=== PATIENT | male | born 1940 | race Caucasian/White ===

== ENCOUNTER 2017-04-07 12:36 | Inpatient (IN) | payer OTHER ==
[2017-04-07 14:01] LABS: BASOPHIL 0.9 % (0-2.0); EOSINOPHIL 0.4 % (0-4.5); MCH 28.7 pg (25.7-33.7); MCHC 33.5 g/dl (32.0-35.9); MEAN CELL VOLUME 85.6 fl (80-96); MEAN PLT VOLUME 7.7 fl (7.5-11.1); NEUTROPHILS 75.2 % (42.8-82.8); PLATELET COUNT 258 K/MM3 (134-434); RDW 15.6 % (11.9-15.9); WHITE BLOOD COUNT 9.4 K/mm3 (4.0-10.0)
[2017-04-07 14:24] LABS: INR 1.02 (0.82-1.09); PROTHROMBIN TIME (PATIENT) 11.2 SEC (9.98-11.88)
[2017-04-07 14:27] LABS: ACTIVATED PTT 29.4 SECONDS (26.9-34.4)
[2017-04-07 14:28] LABS: ALBUMIN 3.6 g/dl (3.4-5.0); ALK PHOS 47 U/L (45-117); ANION GAP 7 (8-16); BILIRUBIN,TOTAL 0.7 mg/dL (0.2-1.0); CALCIUM 9.9 mg/dL (8.5-10.1); CO2 30 mmol/L (21-32); CPK 94 IU/L (39-308); CREATININE 1.1 mg/dL (0.7-1.3); GLUCOSE,RANDOM 115 mg/dL (74-106); SGOT/AST 19 U/L (15-37); SGPT/ALT 19 U/L (12-78); TOT PROT 7.2 g/dl (6.4-8.2)
[2017-04-07 14:30] LABS: TROPONIN I 0.03 ng/ml (0.00-0.05)
--- NOTE | 2017-04-07 14:36 | PDOC ---
Attending Attestation - Resident Resident Name: Sam Cordova - ED Attending Attestation I have performed the following: I have examined & evaluated the patient, The case was reviewed & discussed with the resident, I agree w/resident's findings & plan, Exceptions are as noted - HPI HPI: 04/07/17 14:33 77 yo male with h/o htn, DM HLD, long time smoker here with exertional dyspnea x 3 weeks. denies chest pain. has noted mild leg swelling. no f/c no cough. follows with dr. cardoso ( pcp) and dr. shook cardiology. - Physicial Exam PE: 04/07/17 14 - Medical Decision Making 04/07/17 14:35 exertional dyspnea, leg edema. differential chf, angina, anemia, renal failure, pneumonia, effusion, ca, copd. plan cxr labs ekg trop aspirin, will edward require admission for acs rule out and further work up. 04/07/17 15:40 focused ed ultrasound TTE, limited, and lung us ltd. indication sob finding: moderately decreased contractility, no pericardial effusion. mild RV hypertrophy, . lungs bilateral B lines noted anterior lung raymond, bilateral pleural effusions at the bases, with some air bronchograms right base. impression : moderately decreased contractility. pulmonary edema with bilateral pleural effusion, atelectasis vs. infiltrate at bases dw dr Cardoso regarding findings. has ct outpt showing all of above us findings , plus suspicious mass right lung and nodules. will obtain ct angio r/o pe, and or CA of lung. d/w cable swager dr raya. thus far consistent with CHF, BNP elevated, pulm edema and decreased contractility. will diurese with iv lasix, admit to telemetry. under dr. tomy ocampo.
--- NOTE | 2017-04-07 14:46 | PDOC ---
History of Present Illness - General Chief Complaint: Shortness of Breath Stated Complaint: SOB (PCP SENT) Time Seen by Provider: 04/07/17 14:12 History Source: Patient Exam Limitations: No Limitations - History of Present Illness Initial Comments: 04/07/17 14:40 Patient is a 77M with history of HTN, HLD, Borderline DM and BPH here today complaining of shortness of breath for 3 weeks. The shortness of breath gets worse with exertion. There is associated diaphoresis and cough. He denies chest pain, nausea, vomiting, fevers and chills. He reports that he his a long time smoker, and quit 4 months ago. He reports that he's never had an OK, stents placed, or told that he's had COPD or asthma. Past History - Past Medical History Allergies/Adverse Reactions: Allergies Allergy/AdvReac Type Severity Reaction Status Date / Time No Known Drug Allergies Allergy Verified 04/07/17 12:53 Home Medications: Ambulatory Orders Amlodipine Besylate [Norvasc -] 10 mg PO DAILY 04/07/17 Aspirin [ASA -] 81 mg PO DAILY 04/07/17 Cholecalciferol (Vitamin D3) [Vitamin D3 -] 1,000 unit PO DAILY 04/07/17 Escitalopram Oxalate [Lexapro -] 10 mg PO DAILY 04/07/17 Fenofibrate 150 mg PO DAILY 04/07/17 Finasteride [Proscar] 5 mg PO DAILY 04/07/17 Hydrochlorothiazide [Hctz -] 25 mg PO DAILY 04/07/17 Losartan Potassium 100 mg PO DAILY 04/07/17 Metformin HCl 500 mg PO DAILY 04/07/17 Multivit-Min/Iron Fum/Folic AC [Iksqh-Bsuffcz-Dklcyneb Tablet] 1 each PO DAILY 04/07/17 Nicotine Polacrilex [Nicotine Lozenge] 4 mg BC PRN 04/07/17 Rosuvastatin Calcium [Crestor] 10 mg PO DAILY 04/07/17 Tamsulosin HCl [Flomax] 0.4 mg PO DAILY 04/07/17 Anemia: No Asthma: No Cancer: No Cardiac Disorders: No CVA: No COPD: No CHF: No Dementia: No Diabetes: Yes (PRE) GI Disorders: No Disorders: No HTN: Yes Hypercholesterolemia: Yes Liver Disease: No Seizures: No Thyroid Disease: No - Surgical History Abdominal Surgery: No Appendectomy: No Cardiac Surgery: No Cholecystectomy: No Lung Surgery: No Neurologic Surgery: No Orthopedic Surgery: Yes (TRIGGER FINGER BILATERAL) - Suicide/Smoking/Psychosocial Hx Smoking History: Former smoker Have you smoked in the past 12 months: No Number of Cigarettes Smoked Daily: 10 If you are a former smoker, when did you quit?: 3 YRS AGO Information on smoking cessation initiated: No 'Breaking Loose' booklet given: 07/30/12 Hx Alcohol Use: No Drug/Substance Use Hx: No Substance Use Type: None Hx Substance Use Treatment: No Review of Systems - Review of Systems Comments:: 04/07/17 14:43 GENERAL/CONSTITUTIONAL: No fever or chills. No weakness. HEAD, EYES, EARS, NOSE AND THROAT: No change in vision. No sore throat. CARDIOVASCULAR: No chest pain. Positive for shortness of breath RESPIRATORY: No cough, wheezing, or hemoptysis. GASTROINTESTINAL: No nausea, vomiting, diarrhea or constipation. GENITOURINARY: No dysuria, frequency, or change in urination. MUSCULOSKELETAL: No joint or muscle swelling or pain. No neck or back pain. SKIN: No rash NEUROLOGIC: No headache, vertigo, loss of consciousness, or change in strength/ sensation. HEMATOLOGIC/LYMPHATIC: No anemia, easy bleeding, or history of blood clots. ALLERGIC/IMMUNOLOGIC: No hives or skin allergy. *Physical Exam - Vital Signs Last Vital Signs Temp Pulse Resp BP Pulse Ox 97.4 F L 81 20 103/68 92 L 04/07/17 12:49 04/07/17 14:05 04/07/17 14:05 04/07/17 14:05 04/07/17 14:05 - Physical Exam Comments: 04/07/17 14:44 GENERAL: Awake, alert, and fully oriented, in no acute distress HEAD: No signs of trauma, normocephalic, atraumatic EYES: PERRLA, EOMI, sclera anicteric, conjunctiva clear ENT: Auricles normal inspection, hearing grossly normal, nares patent, oropharynx clear without exudates. Moist mucosa LUNGS: No distress, speaks full sentences, bilateral rales, no wheezing, sating 93% on 4L O2 HEART: Regular rate and rhythm, normal S1 and S2, no murmurs, rubs or gallops, peripheral pulses normal and equal bilaterally. ABDOMEN: Soft, nontender, normoactive bowel sounds. No guarding, no rebound. No masses EXTREMITIES: Normal inspection, Normal range of motion, trace pitting edema on shins bilaterall. No clubbing or cyanosis. NEUROLOGICAL: Cranial nerves II through XII grossly intact. Normal speech, no focal sensorimotor deficits SKIN: Warm, Dry, normal turgor, no rashes or lesions noted. ED Treatment Course - LABORATORY CBC & Chemistry Diagram: 04/07/17 13:50 04/07/17 13:50 - ADDITIONAL ORDERS Additional order review: Laboratory Results 04/07/17 04/07/17 13:50 13:50 PT with INR 11.20 INR 1.02 PTT (Actin FS) 29.4 Sodium 139 Potassium 4.4 Chloride 102 Carbon Dioxide 30 Anion Gap 7 L BUN 30 H D Creatinine 1.1 D Creat Clearance w eGFR > 60 Random Glucose 115 H Calcium 9.9 Total Bilirubin 0.7 D AST 19 D ALT 19 Alkaline Phosphatase 47 Creatine Kinase 94 Troponin I 0.03 B-Natriuretic Peptide 3857.32 H Total Protein 7.2 Albumin 3.6 04/07/17 13:50 RBC 5.65 H MCV 85.6 MCHC 33.5 RDW 15.6 MPV 7.7 Neutrophils % 75.2 Lymphocytes % 16.2 D Monocytes % 7.3 Eosinophils % 0.4 D Basophils % 0.9 Medical Decision Making - Medical Decision Making 04/07/17 14:45 Patient is a 77M with history of HTN, HLD, borderline DM, and BPH here today with exertional shortness of breath. Hypoxic on room air, vital signs otherwise stable and normal. Will evaluate with labs, cxr, and ecg. Differential diagnosis includes, but is not limited to: CHF exacerbation, COPD exacerbation, anemia, ACS. Will treat with aspirin. 04/07/17 14:47 EKG shows normal sinus rhythm, LBBB, Normal axis, normal rate, sgarbossa negative. No t-wave abnormalities. No significant changes from ECG done on 2012. 04/07/17 14:49 Laboratory Tests 04/07/17 04/07/17 04/07/17 13:50 13:50 13:50 WBC 9.4 Hgb 16.2 Hct 48.4 Plt Count 258 INR 1.02 Troponin I 0.03 B-Natriuretic Peptide 3857.32 H CBC combined with CMP suggests that patient has a low intravascular fluid level. Trop neg, BNP elevated. 04/07/17 14:50 CXR Congestive changes. Bibasilar findings left greater than right. Large heart. 04/07/17 15:[address] Soriano, discussed patient. Will give lasix, appreciate recs. 04/07/17 15:48 Admitted to [facility] to tele inpatient. *DC/Admit/Observation/Transfer Diagnosis at time of Disposition: Congestive heart failure - Discharge Dispostion Condition at time of disposition: Stable Admit: Yes
[2017-04-07] MEDS ORDERED: ASPIRIN 81 MG CHEWABLE TABLETS PO ONE (14:47)
[2017-04-07] MEDS ORDERED: ASPIRIN 325 MG TABLET ONE (15:01)
[2017-04-07] MEDS ORDERED: FUROSEMIDE 40 MG/4 ML INJECTABLE VIAL IVPUSH ONE (15:39)
[2017-04-07] MEDS ORDERED: FUROSEMIDE 40 MG/4 ML INJECTABLE VIAL ONE (15:58)
[2017-04-07] MEDS: HEPARIN NA (PORCINE) 5,000 UNITS/ML 1ML VIAL SQ SCH (22:02)
[2017-04-08 03:27] VITALS: BMI 26.7
[2017-04-08] MEDS: metFORMIN HCL 500 MG TABLET (FP) PO SCH ×2 (06:43→06:45)
[2017-04-08 07:35] LABS: BASOPHIL 0.5 % (0-2.0); EOSINOPHIL 0.3 % (0-4.5); MCH 27.9 pg (25.7-33.7); MCHC 32.5 g/dl (32.0-35.9); MEAN CELL VOLUME 85.7 fl (80-96); NEUTROPHILS 82.4 % (42.8-82.8); PLATELET COUNT 257 K/MM3 (134-434); RDW 15.8 % (11.9-15.9); WHITE BLOOD COUNT 11.6 K/mm3 (4.0-10.0)
[2017-04-08 07:48] LABS: ALBUMIN 3.5 g/dl (3.4-5.0); ANION GAP 7 (8-16); CALCIUM 9.6 mg/dL (8.5-10.1); CO2 29 mmol/L (21-32); GLUCOSE,RANDOM 128 mg/dL (74-106); SGOT/AST 14 U/L (15-37); SGPT/ALT 17 U/L (12-78)
[2017-04-08 07:51] LABS: ALK PHOS 46 U/L (45-117); BILIRUBIN,TOTAL 0.7 mg/dL (0.2-1.0)
--- NOTE | 2017-04-08 08:40 | EKG ---
Test Reason : Blood Pressure : / mmHG Vent. Rate : 083 BPM Atrial Rate : 083 BPM P-R Int : 196 ms QRS Dur : 122 ms QT Int : 416 ms P-R-T Axes : 051 -12 088 degrees QTc Int : 488 ms NORMAL SINUS RHYTHM POSSIBLE LEFT ATRIAL ENLARGEMENT LEFT BUNDLE BRANCH BLOCK ABNORMAL ECG Confirmed by MD SANTANA, LISSETT ([id number]) on 04/08/2017 8:39:48 AM Referred By: Confirmed By:LISSETT DILLON MD
[2017-04-08] MEDS ORDERED: FUROSEMIDE 40 MG/4 ML INJECTABLE VIAL ONE (08:45)
[2017-04-08] MEDS: FUROSEMIDE 40 MG/4 ML INJECTABLE VIAL IVPUSH SCH (09:39)
[2017-04-08] MEDS: HEPARIN NA (PORCINE) 5,000 UNITS/ML 1ML VIAL SQ SCH ×2 (10:12→21:35)
[2017-04-08] MEDS: TAMSULOSIN HCL 0.4 MG CAP.ER.24H (FP) PO SCH (10:12)
[2017-04-08] MEDS: ROSUVASTATIN CA 10 MG TABLET (FP) PO SCH (10:13)
[2017-04-08] MEDS: CHOLECALCIFEROL (VITAMIN D3) 1,000 UNIT TABLET (FP) PO SCH (10:13)
[2017-04-08] MEDS: LOSARTAN POTASSIUM 50 MG TABLET (FP) PO SCH (10:13)
[2017-04-08] MEDS: HYDROCHLOROTHIAZIDE 25 MG TABLET (FP) PO SCH (10:13)
[2017-04-08] MEDS: FENOFIBRIC ACID 135 MG CAP PO SCH (10:13)
[2017-04-08] MEDS: MULTIVITAMINS THER W-MINERALS COMBO TABLET (FP) PO SCH (10:13)
[2017-04-08] MEDS: FINASTERIDE 5 MG TABLET (FP) PO SCH (10:14)
[2017-04-08] MEDS: ASPIRIN 81 MG CHEWABLE TABLETS PO SCH (10:14)
[2017-04-08] MEDS: amLODIPine BESYLATE 10 MG TABLET (FP) PO SCH (10:14)
[2017-04-08] MEDS: ESCITALOPRAM OXALATE 10 MG TABLET (FP) PO SCH (10:14)
--- NOTE | 2017-04-08 12:09 | CON.PULM ---
Consult Consult Specialty:: PULMONARY Referred by:: Dr. Sarmiento Reason for Consultation:: abnormal CT chest - History of Present Illness Chief Complaint: shortness of breath History of Present Illness: 77yo male with h/o HTN, DM, hyperlipidemia, BPH, long time smoker who presents with worsening shortness of breath x 3 weeks. Denies any chest pain, palpitations. Reports a nonproductive cough without wheezing. No fevers, chills or sweats. He does report mild swelling in his legs and has been experiencing orthopnea and paroxysmal nocturnal dyspnea. Denies history of asthma or COPD, started smoking in his late teens, smoked on average 1 PPD, quit 4 months ago. 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 No significant occupational exposures. - History Source History Provided By: Patient, Medical Record Limitations to Obtaining History: No Limitations - Past Medical History Cardio/Vascular: Yes: HTN, Hyperlipdemia Renal/: Yes: BPH Endocrine: Yes: Diabetes Mellitus - Alcohol/Substance Use Hx Alcohol Use: No - Smoking History Smoking history: Former smoker Have you smoked in the past 12 months: Yes Aproximately how many cigarettes per day: 10 If you are a former smoker, when did you quit?: 3 YRS AGO Home Medications - Allergies Allergies/Adverse Reactions: Allergies Allergy/AdvReac Type Severity Reaction Status Date / Time No Known Drug Allergies Allergy Verified 04/07/17 12:53 - Home Medications Home Medications: Ambulatory Orders Amlodipine Besylate [Norvasc -] 10 mg PO DAILY 04/07/17 Aspirin [ASA -] 81 mg PO DAILY 04/07/17 Cholecalciferol (Vitamin D3) [Vitamin D3 -] 1,000 unit PO DAILY 04/07/17 Escitalopram Oxalate [Lexapro -] 10 mg PO DAILY 04/07/17 Fenofibrate 150 mg PO DAILY 04/07/17 Finasteride [Proscar] 5 mg PO DAILY 04/07/17 Hydrochlorothiazide [Hctz -] 25 mg PO DAILY 04/07/17 Losartan Potassium 100 mg PO DAILY 04/07/17 Metformin HCl 500 mg PO DAILY 04/07/17 Multivit-Min/Iron Fum/Folic AC [Veuhk-Jspleqi-Vzdtwyym Tablet] 1 each PO DAILY 04/07/17 Nicotine Polacrilex [Nicotine Lozenge] 4 mg BC PRN 04/07/17 Rosuvastatin Calcium [Crestor] 10 mg PO DAILY 04/07/17 Tamsulosin HCl [Flomax] 0.4 mg PO DAILY 04/07/17 Review of Systems - Review of Systems Constitutional: denies: Chills, Fever Eyes: denies: Recent Change in Vision HENT: denies: Nasal Congestion, Throat Pain Neck: denies: Stiffness, Tenderness Cardiovascular: reports: Edema, Shortness of Breath. denies: Chest Pain, Palpitations Respiratory: reports: Cough, Orthopnea, SOB on Exertion. denies: Hemoptysis, Wheezing Gastrointestinal: denies: Abdominal Pain, Nausea, Vomiting Genitourinary: denies: Dysuria, Hematuria Neurological: denies: Dizziness, Headache Endocrine: denies: Unexplained Weight Loss Physical Exam Vital Sings: Vital Signs Temperature 98.3 F 04/08/17 10:00 Pulse Rate 99 H 04/08/17 10:00 Respiratory Rate 20 04/08/17 10:00 Blood Pressure 118/67 04/08/17 10:00 O2 Sat by Pulse Oximetry (%) 93 L 04/07/17 19:00 Constitutional: Yes: Calm Eyes: Yes: Conjunctiva Clear, EOM Intact HENT: Yes: Atraumatic, Normocephalic Neck: Yes: Supple, Trachea Midline Cardiovascular: Yes: Regular Rate and Rhythm Respiratory: Yes: Rales (basilar) ...Clubbing: No Gastrointestinal: Yes: Normal Bowel Sounds, Soft. No: Tenderness Edema: No Labs: CBC, BMP 04/08/17 06:00 04/08/17 06:00 Imaging - Results Chest X-ray: Report Reviewed, Image Reviewed Cat Scan: Report Reviewed, Image Reviewed (bilateral effusions, nonspecific scattered nodules) Assessment/Plan CHF Exacerbation Pleural Effusions Lung Nodules HTN DM Hyperlipidemia BPH Former Smoker - IV lasix - monitor urine output, creatinine - daily weights, I/Os - echocardiogram - repeat CXR in 2-3 days to assess response to diuresis - O2 to keep SpO2 >90% - inhaled bronchodilators as needed - outpt PFTs due to smoking history - lung nodules nonspecific but will need outpt f/u given smoking history when in euvolemic outpt state - DVT prophylaxis Thank you for this consult Deuce Pang MD
--- NOTE | 2017-04-08 12:52 | HP ---
Admitting History and Physical - Primary Care Physician PCP: Oscar Sarmiento - Admission Chief Complaint: SOB. Cough History of Present Illness: Pt with significant Hx/o HTN, Hypercholesterolemia, DM developed progressive SOB and cough over the last 3 weeks to the point that couldn't sleep. He came to ER and was found to have Acute CHF exacerbation. - Past Medical History Cardiovascular: Yes: HTN, Hyperlipdemia Renal/: Yes: BPH Endocrine: Yes: Diabetes Mellitus - Smoking History Smoking history: Former smoker Have you smoked in the past 12 months: Yes Aproximately how many cigarettes per day: 15 If you are a former smoker, when did you quit?: 3 YRS AGO - Alcohol/Substance Use Hx Alcohol Use: No - Social History Usual Living Arrangement: Yes: With Spouse Home Medications - Allergies Allergies/Adverse Reactions: Allergies Allergy/AdvReac Type Severity Reaction Status Date / Time No Known Drug Allergies Allergy Verified 04/07/17 12:53 - Home Medications Home Medications: Ambulatory Orders Amlodipine Besylate [Norvasc -] 10 mg PO DAILY 04/07/17 Aspirin [ASA -] 81 mg PO DAILY 04/07/17 Cholecalciferol (Vitamin D3) [Vitamin D3 -] 1,000 unit PO DAILY 04/07/17 Escitalopram Oxalate [Lexapro -] 10 mg PO DAILY 04/07/17 Fenofibrate 150 mg PO DAILY 04/07/17 Finasteride [Proscar] 5 mg PO DAILY 04/07/17 Hydrochlorothiazide [Hctz -] 25 mg PO DAILY 04/07/17 Losartan Potassium 100 mg PO DAILY 04/07/17 Metformin HCl 500 mg PO DAILY 04/07/17 Multivit-Min/Iron Fum/Folic AC [Vtdcp-Gdllpio-Bmfrpacu Tablet] 1 each PO DAILY 04/07/17 Nicotine Polacrilex [Nicotine Lozenge] 4 mg BC PRN 04/07/17 Rosuvastatin Calcium [Crestor] 10 mg PO DAILY 04/07/17 Tamsulosin HCl [Flomax] 0.4 mg PO DAILY 04/07/17 Review of Systems - Review of Systems Constitutional: denies: Chills, Fever Eyes: denies: Blurred Vision, Double Vision HENT: denies: Ear Discharge, Ear Pain, Nasal Congestion, Throat Pain Neck: denies: Pain on Movement, Stiffness, Tenderness Cardiovascular: denies: Chest Pain, Edema, Palpitations Respiratory: reports: Cough (dry, for long time), PND, SOB, SOB on Exertion ( over the couple of weeks). denies: Wheezing Gastrointestinal: denies: Abdominal Pain, Diarrhea, Nausea, Vomiting Genitourinary: denies: Burning, Dysuria Musculoskeletal: denies: Back Pain, Extremity Pain, Joint Pain, Joint Swelling Integumentary: denies: Bruising, Erythema Neurological: denies: Change in LOC, Change in Speech, Confusion, Dizziness, Incoordination Endocrine: denies: Excessive Sweating, Intolerance to Cold, Unexplained Weight Gain Hematology/Lymphatic: denies: Easily Bruised, Excessive Bleeding Psychiatric: denies: Anxiety, Depression Physical Examination Vital Signs: Vital Signs Temperature 98.3 F 04/08/17 10:00 Pulse Rate 99 H 04/08/17 10:00 Respiratory Rate 20 04/08/17 10:00 Blood Pressure 118/67 04/08/17 10:00 O2 Sat by Pulse Oximetry (%) 85 L 04/08/17 09:00 Constitutional: Yes: No Distress, Calm Eyes: Yes: Conjunctiva Clear, EOM Intact HENT: Yes: Normocephalic, Hoarseness. No: Epistaxis, Nasal Congestion Neck: Yes: Trachea Midline. No: Lymphadenopathy Cardiovascular: Yes: Regular Rate and Rhythm, S1, S2 Respiratory: Yes: Regular, Other (bilat crackles) Gastrointestinal: Yes: Normal Bowel Sounds, Soft. No: Palpable Mass, Tenderness ...Rectal Exam: Yes: Deferred Renal/: No: CVA Tenderness - Left, CVA Tenderness - Right Musculoskeletal: No: Back Pain, Joint Swelling Extremities: No: Cold, Cyanosis Edema: No Integumentary: No: Bruising, Erythema, Rash Neurological: Yes: Alert, Oriented, Other (motor and sensory is symmetric bilaterally) Psychiatric: Yes: Alert, Oriented Labs: CBC, BMP 04/08/17 06:00 04/08/17 06:00 Imaging - Results Chest X-ray: Report Reviewed Cat Scan: Report Reviewed Problem List - Problems (1) CHF (congestive heart failure) Code(s): I50.9 - HEART FAILURE, UNSPECIFIED (2) Pleural effusion Code(s): J90 - PLEURAL EFFUSION, NOT ELSEWHERE CLASSIFIED (3) Pulmonary nodules Code(s): R91.8 - OTHER NONSPECIFIC ABNORMAL FINDING OF LUNG FIELD (4) Left adrenal mass Code(s): E27.9 - DISORDER OF ADRENAL GLAND, UNSPECIFIED (5) Hypertension Code(s): I10 - ESSENTIAL (PRIMARY) HYPERTENSION (6) Diabetes mellitus Code(s): E11.9 - TYPE 2 DIABETES MELLITUS WITHOUT COMPLICATIONS (7) Hypercholesteremia Code(s): E78.00 - PURE HYPERCHOLESTEROLEMIA, UNSPECIFIED Assessment/Plan Admit to Telemetry Cardio consult Pulmonary consult; case was d/w Dr. Bird Dickson IV; to monitor renal function. AM labs
--- NOTE | 2017-04-08 20:09 | CON.CARD ---
Cardiology Consult (text) - Consultation Consultation Note: cc: sob, le edema hpi: 77 m hx htn, hld, dm here with sob, le edema for 3 weeks. No cp, palps, dizzy, loc,pnd, +orthopnea. No known hrt dz. Saw dr shook for initial cardio consultation recently. Found to have chf in er so given iv lasix, feeling a little better today. pmh: per hpi psh: nc social: ex tob fam: no premature cad, scd ros: per hpi; no nvd, fever, cough, nasal congestion, gib, hematuria, dysuria meds: Home Medications Medication Instructions Recorded Amlodipine Besylate [Norvasc -] 10 mg PO DAILY 04/07/17 Aspirin [ASA -] 81 mg PO DAILY 04/07/17 Cholecalciferol (Vitamin D3) 1,000 unit PO DAILY 04/07/17 [Vitamin D3 -] Escitalopram Oxalate [Lexapro -] 10 mg PO DAILY 04/07/17 Fenofibrate 150 mg PO DAILY 04/07/17 Finasteride [Proscar] 5 mg PO DAILY 04/07/17 Hydrochlorothiazide [Hctz -] 25 mg PO DAILY 04/07/17 Losartan Potassium 100 mg PO DAILY 04/07/17 Metformin HCl 500 mg PO DAILY 04/07/17 Multivit-Min/Iron Fum/Folic AC 1 each PO DAILY 04/07/17 [Bwisr-Iuetdaf-Mrhtrweb Tablet] Nicotine Polacrilex [Nicotine 4 mg BC PRN 04/07/17 Lozenge] Rosuvastatin Calcium [Crestor] 10 mg PO DAILY 04/07/17 Tamsulosin HCl [Flomax] 0.4 mg PO DAILY 04/07/17 pe: Vital Signs Period Temp Pulse Resp BP Sys/Eisenberg Pulse Ox Last 24 Hr 97.5 F-98.3 F 80-99 20-20 100-123/60-79 85 nad +jvd rrr s1s2 no mrg bibasilar crackles, nl eff aaox3 trace le edema bl no c/c abd nt nd posbs no jaundice diaphoresis +dp pt no carotid bruits Laboratory Last Values WBC 11.6 K/mm3 (4.0-10.0) H 04/08/17 06:00 RBC 5.75 M/mm3 (4.00-5.60) H 04/08/17 06:00 Hgb 16.0 GM/dL (11.7-16.9) 04/08/17 06:00 Hct 49.3 % (35.4-49) H 04/08/17 06:00 MCV 85.7 fl (80-96) 04/08/17 06:00 MCH 27.9 pg (25.7-33.7) 04/08/17 06:00 MCHC 32.5 g/dl (32.0-35.9) 04/08/17 06:00 RDW 15.8 % (11.9-15.9) 04/08/17 06:00 Plt Count 257 K/MM3 (134-434) 04/08/17 06:00 MPV 8.0 fl (7.5-11.1) 04/08/17 06:00 Neutrophils % 82.4 % (42.8-82.8) 04/08/17 06:00 Lymphocytes % 11.2 % (8-40) D 04/08/17 06:00 Monocytes % 5.6 % (3.8-10.2) 04/08/17 06:00 Eosinophils % 0.3 % (0-4.5) 04/08/17 06:00 Basophils % 0.5 % (0-2.0) 04/08/17 06:00 PT with INR 11.20 SEC (9.98-11.88) 04/07/17 13:50 INR 1.02 (0.82-1.09) 04/07/17 13:50 PTT (Actin FS) 29.4 SECONDS (26.9-34.4) 04/07/17 13:50 Sodium 138 mmol/L (136-145) 04/08/17 06:00 Potassium 3.8 mmol/L (3.5-5.1) 04/08/17 06:00 Chloride 102 mmol/L (98-107) 04/08/17 06:00 Carbon Dioxide 29 mmol/L (21-32) 04/08/17 06:00 Anion Gap 7 (8-16) L 04/08/17 06:00 BUN 30 mg/dL (7-18) H 04/08/17 06:00 Creatinine 1.0 mg/dL (0.7-1.3) 04/08/17 06:00 Creat Clearance w eGFR > 60 (>60) 04/08/17 06:00 POC Glucometer 131 UNITS (()) 04/08/17 06:13 Random Glucose 128 mg/dL (74-106) H 04/08/17 06:00 Calcium 9.6 mg/dL (8.5-10.1) 04/08/17 06:00 Total Bilirubin 0.7 mg/dL (0.2-1.0) 04/08/17 06:00 AST 14 U/L (15-37) L D 04/08/17 06:00 ALT 17 U/L (12-78) 04/08/17 06:00 Alkaline Phosphatase 46 U/L (45-117) 04/08/17 06:00 Creatine Kinase 94 IU/L (39-308) 04/07/17 13:50 Troponin I 0.03 ng/ml (0.00-0.05) 04/07/17 13:50 B-Natriuretic Peptide 3857.32 pg/ml (5-450) H 04/07/17 13:50 Total Protein 7.0 g/dl (6.4-8.2) 04/08/17 06:00 Albumin 3.5 g/dl (3.4-5.0) 04/08/17 06:00 cxr: chf cta chest: no pe, bl effs ecg: sr, lbbb (old) tele: sr a/p: 77 m hx htn, hld, dm here with sob, le edema for 3 weeks. sob, acute chf: -pt with pulm congestion, chf, no known hx of such -no signs acs -cont with lasix 40 iv qd, daily wts, chem7 -check echo -cont tele htn: -cont home meds hld: -cont home statin abnl ecg: -pt with old lbbb -check echo -will need ischemic workup at some point
[2017-04-09] MEDS: metFORMIN HCL 500 MG TABLET (FP) PO SCH (06:11)
[2017-04-09 07:40] LABS: MCHC 32.5 g/dl (32.0-35.9); MEAN CELL VOLUME 86.2 fl (80-96); MEAN PLT VOLUME 8.4 fl (7.5-11.1); PLATELET COUNT 242 K/MM3 (134-434); RDW 15.4 % (11.9-15.9); WHITE BLOOD COUNT 10.1 K/mm3 (4.0-10.0)
[2017-04-09 08:30] LABS: ALBUMIN 3.3 g/dl (3.4-5.0); ALK PHOS 40 U/L (45-117); ANION GAP 12 (8-16); BILIRUBIN,TOTAL 0.8 mg/dL (0.2-1.0); CALCIUM 9.4 mg/dL (8.5-10.1); CO2 29 mmol/L (21-32); CREATININE 1.1 mg/dL (0.7-1.3); FREE T4 1.34 ng/dl (0.76-1.16); GLUCOSE,RANDOM 116 mg/dL (74-106); SGOT/AST 15 U/L (15-37); SGPT/ALT 16 U/L (12-78); THYROID STIMULATING HORMONE 0.77 uIU/ml (0.358-3.74); TOT PROT 6.4 g/dl (6.4-8.2)
[2017-04-09] MEDS: HEPARIN NA (PORCINE) 5,000 UNITS/ML 1ML VIAL SQ SCH ×2 (10:31→21:38)
[2017-04-09] MEDS: ASPIRIN 81 MG CHEWABLE TABLETS PO SCH (10:32)
[2017-04-09] MEDS: FUROSEMIDE 40 MG/4 ML INJECTABLE VIAL IVPUSH SCH (10:32)
[2017-04-09] MEDS: HYDROCHLOROTHIAZIDE 25 MG TABLET (FP) PO SCH (10:32)
[2017-04-09] MEDS: FENOFIBRIC ACID 135 MG CAP PO SCH (10:32)
[2017-04-09] MEDS: CHOLECALCIFEROL (VITAMIN D3) 1,000 UNIT TABLET (FP) PO SCH (10:32)
[2017-04-09] MEDS: FINASTERIDE 5 MG TABLET (FP) PO SCH (10:32)
[2017-04-09] MEDS: ESCITALOPRAM OXALATE 10 MG TABLET (FP) PO SCH (10:32)
[2017-04-09] MEDS: amLODIPine BESYLATE 10 MG TABLET (FP) PO SCH (10:32)
[2017-04-09] MEDS: ROSUVASTATIN CA 10 MG TABLET (FP) PO SCH (10:32)
[2017-04-09] MEDS: TAMSULOSIN HCL 0.4 MG CAP.ER.24H (FP) PO SCH (10:32)
[2017-04-09] MEDS: MULTIVITAMINS THER W-MINERALS COMBO TABLET (FP) PO SCH (10:32)
[2017-04-09] MEDS: LOSARTAN POTASSIUM 50 MG TABLET (FP) PO SCH (10:36)
--- NOTE | 2017-04-09 10:45 | PN ---
Progress Note, Physician History of Present Illness: PULMONARY ALERT,OOB-CHAIR LESS DYSPNEIC ON - Current Medication List Current Medications: Active Medications Amlodipine Besylate (Norvasc -) 10 mg PO DAILY COUNTS INCLUDE 234 BEDS AT THE [facility] Last Admin: 04/09/17 10:32 Dose: 10 mg Aspirin (Asa -) 81 mg PO DAILY COUNTS INCLUDE 234 BEDS AT THE [facility] Last Admin: 04/09/17 10:32 Dose: 81 mg Cholecalciferol (Vitamin D3 -) 1,000 unit PO DAILY COUNTS INCLUDE 234 BEDS AT THE [facility] Last Admin: 04/09/17 10:32 Dose: 1,000 unit Escitalopram Oxalate (Lexapro -) 10 mg PO DAILY COUNTS INCLUDE 234 BEDS AT THE [facility] Last Admin: 04/09/17 10:32 Dose: 10 mg Fenofibric Acid (Trilipix -) 135 mg PO DAILY COUNTS INCLUDE 234 BEDS AT THE [facility] Last Admin: 04/09/17 10:32 Dose: 135 mg Finasteride (Proscar -) 5 mg PO DAILY COUNTS INCLUDE 234 BEDS AT THE [facility] Last Admin: 04/09/17 10:32 Dose: 5 mg Furosemide (Lasix Injection -) 40 mg IVPUSH DAILY COUNTS INCLUDE 234 BEDS AT THE [facility] Last Admin: 04/09/17 10:32 Dose: 40 mg Heparin Sodium (Porcine) (Heparin -) 5,000 unit SQ BID COUNTS INCLUDE 234 BEDS AT THE [facility] Last Admin: 04/09/17 10:31 Dose: 5,000 unit Hydrochlorothiazide (Hctz -) 25 mg PO DAILY COUNTS INCLUDE 234 BEDS AT THE [facility] Last Admin: 04/09/17 10:32 Dose: 25 mg Losartan Potassium (Cozaar -) 100 mg PO DAILY COUNTS INCLUDE 234 BEDS AT THE [facility] Last Admin: 04/09/17 10:36 Dose: 100 mg Metformin HCl (Glucophage -) 500 mg PO DAILY@0700 COUNTS INCLUDE 234 BEDS AT THE [facility] Last Admin: 04/09/17 06:11 Dose: Not Given Multivitamins/Minerals (Theragran-M) 1 each PO DAILY COUNTS INCLUDE 234 BEDS AT THE [facility] Last Admin: 04/09/17 10:32 Dose: 1 each Rosuvastatin Calcium (Crestor -) 10 mg PO DAILY COUNTS INCLUDE 234 BEDS AT THE [facility] Last Admin: 04/09/17 10:32 Dose: 10 mg Tamsulosin HCl (Flomax -) 0.4 mg PO DAILY COUNTS INCLUDE 234 BEDS AT THE [facility] Last Admin: 04/09/17 10:32 Dose: 0.4 mg - Objective Vital Signs: Vital Signs Temperature 97.6 F 04/09/17 06:00 Pulse Rate 88 04/09/17 06:00 Respiratory Rate 20 04/09/17 06:00 Blood Pressure 108/65 04/09/17 06:00 O2 Sat by Pulse Oximetry (%) 93 L 04/08/17 21:00 Constitutional: Yes: Well Nourished, Calm Eyes: Yes: WNL HENT: Yes: WNL Neck: Yes: WNL Cardiovascular: Yes: Regular Rate and Rhythm, S1, S2 Respiratory: Yes: Rales (BILATERAL RALES 2/3 UP) Gastrointestinal: Yes: Normal Bowel Sounds, Soft Extremities: Yes: WNL Edema: No Labs: CBC, BMP 04/09/17 05:30 04/09/17 05:30 INR, PTT INR 1.02 (0.82-1.09) 04/07/17 13:50 Assessment/Plan Assessment/Plan CHF Exacerbation Pleural Effusions Lung Nodules HTN DM Hyperlipidemia BPH Former Smoker - IV lasix - monitor urine output, creatinine - daily weights, I/Os - repeat CXR in 2-3 days to assess response to diuresis - O2 to keep SpO2 >90% - inhaled bronchodilators as needed - outpt PFTs - lung nodules nonspecific but will need outpt f/u given smoking history when in euvolemic outpt state - DVT prophylaxis DR CÁRDENAS
--- NOTE | 2017-04-09 10:47 | PN ---
Progress Note, Physician Chief Complaint: sob History of Present Illness: rojo and orthopnea much better than at home. no cp, leg swelling - Current Medication List Current Medications: Active Medications Amlodipine Besylate (Norvasc -) 10 mg PO DAILY [facility] Last Admin: 04/09/17 10:32 Dose: 10 mg Aspirin (Asa -) 81 mg PO DAILY [facility] Last Admin: 04/09/17 10:32 Dose: 81 mg Cholecalciferol (Vitamin D3 -) 1,000 unit PO DAILY [facility] Last Admin: 04/09/17 10:32 Dose: 1,000 unit Escitalopram Oxalate (Lexapro -) 10 mg PO DAILY [facility] Last Admin: 04/09/17 10:32 Dose: 10 mg Fenofibric Acid (Trilipix -) 135 mg PO DAILY [facility] Last Admin: 04/09/17 10:32 Dose: 135 mg Finasteride (Proscar -) 5 mg PO DAILY [facility] Last Admin: 04/09/17 10:32 Dose: 5 mg Furosemide (Lasix Injection -) 40 mg IVPUSH DAILY [facility] Last Admin: 04/09/17 10:32 Dose: 40 mg Heparin Sodium (Porcine) (Heparin -) 5,000 unit SQ BID [facility] Last Admin: 04/09/17 10:31 Dose: 5,000 unit Hydrochlorothiazide (Hctz -) 25 mg PO DAILY [facility] Last Admin: 04/09/17 10:32 Dose: 25 mg Losartan Potassium (Cozaar -) 100 mg PO DAILY [facility] Last Admin: 04/09/17 10:36 Dose: 100 mg Metformin HCl (Glucophage -) 500 mg PO DAILY@0700 [facility] Last Admin: 04/09/17 06:11 Dose: Not Given Multivitamins/Minerals (Theragran-M) 1 each PO DAILY [facility] Last Admin: 04/09/17 10:32 Dose: 1 each Rosuvastatin Calcium (Crestor -) 10 mg PO DAILY [facility] Last Admin: 04/09/17 10:32 Dose: 10 mg Tamsulosin HCl (Flomax -) 0.4 mg PO DAILY [facility] Last Admin: 04/09/17 10:32 Dose: 0.4 mg - Objective Vital Signs: Vital Signs Temperature 97.6 F 04/09/17 06:00 Pulse Rate 88 04/09/17 06:00 Respiratory Rate 20 04/09/17 06:00 Blood Pressure 108/65 04/09/17 06:00 O2 Sat by Pulse Oximetry (%) 93 L 04/08/17 21:00 Constitutional: Yes: Well Nourished, No Distress, Calm Cardiovascular: Yes: Regular Rate and Rhythm, S1, S2. No: JVD, Gallop, Murmur Respiratory: Yes: Regular, CTA Bilaterally. No: Accessory Muscle Use, Rales, Wheezes Extremities: No: Cold Edema: No Neurological: Yes: Alert, Oriented Psychiatric: No: Agitated Labs: CBC, BMP 04/09/17 05:30 04/09/17 05:30 INR, PTT INR 1.02 (0.82-1.09) 04/07/17 13:50 - ....Imaging EKG: Other (tele: NSR. episodes of sinus arrhythmia and junctional escape beats overnight hours. 11 beat run NSVT (2:53am)) Assessment/Plan cxr: chf cta chest: no pe, bl effs ecg: sr, lbbb (old) a/p: 77 m hx htn, hld, dm here with sob, le edema for 3 weeks. acute diast CHF -pt with pulm congestion, chf, no known hx of such -sx's of ROJO and orthopnea for a while, saw dr shook but outpt w/u not yet completed. -was 177 at that time (04/02), 176 here initially, bnp 3K. -no signs acs -wt responding to lasix 40 iv qd, sx's improving--cont same today -check echo -needs ischemia eval routinely, can be done as outpatient -suspect will be ready for d/c on po lasix in am VTach: -NSVT on tele, during sleep (2:53am) -? related to TOI--habitus not high risk, consider outpt sleep study -K good, check Mag (ordered) -f/u echo re: LVEF--if EF preserved, then no further workup or mgmt changes indicated for this, with outpt stress test planned as above htn: -bp controlled -cont home meds hld: -cont home statin abnl ecg: -pt with old lbbb -check echo -will need ischemic workup at some point ex-cigs, ? copd: -needs outpt PFTs
[2017-04-09 12:28] LABS: MAGNESIUM 2.1 mg/dL (1.8-2.4)
--- NOTE | 2017-04-09 23:39 | PN ---
Progress Note, Physician History of Present Illness: Pt w/o SOB, CP, palp, abd apin. AM episode of hypoxia was noticed - Current Medication List Current Medications: Active Medications Aspirin (Asa -) 81 mg PO DAILY [facility] Last Admin: 04/09/17 10:32 Dose: 81 mg Cholecalciferol (Vitamin D3 -) 1,000 unit PO DAILY [facility] Last Admin: 04/09/17 10:32 Dose: 1,000 unit Escitalopram Oxalate (Lexapro -) 10 mg PO DAILY [facility] Last Admin: 04/09/17 10:32 Dose: 10 mg Fenofibric Acid (Trilipix -) 135 mg PO DAILY [facility] Last Admin: 04/09/17 10:32 Dose: 135 mg Finasteride (Proscar -) 5 mg PO DAILY [facility] Last Admin: 04/09/17 10:32 Dose: 5 mg Furosemide (Lasix Injection -) 40 mg IVPUSH DAILY [facility] Last Admin: 04/09/17 10:32 Dose: 40 mg Heparin Sodium (Porcine) (Heparin -) 5,000 unit SQ BID [facility] Last Admin: 04/09/17 21:38 Dose: 5,000 unit Losartan Potassium (Cozaar -) 100 mg PO DAILY [facility] Last Admin: 04/09/17 10:36 Dose: 100 mg Metformin HCl (Glucophage -) 500 mg PO DAILY@0700 [facility] Last Admin: 04/09/17 06:11 Dose: Not Given Metoprolol Succinate (Toprol Xl -) 25 mg PO DAILY [facility] Multivitamins/Minerals (Theragran-M) 1 each PO DAILY [facility] Last Admin: 04/09/17 10:32 Dose: 1 each Rosuvastatin Calcium (Crestor -) 10 mg PO DAILY [facility] Last Admin: 04/09/17 10:32 Dose: 10 mg Tamsulosin HCl (Flomax -) 0.4 mg PO DAILY [facility] Last Admin: 04/09/17 10:32 Dose: 0.4 mg - Objective Vital Signs: Vital Signs Temperature 98 F 04/09/17 21:38 Pulse Rate 70 04/09/17 21:38 Respiratory Rate 20 04/09/17 21:38 Blood Pressure 91/54 04/09/17 21:38 O2 Sat by Pulse Oximetry (%) 95 04/09/17 21:00 Constitutional: Yes: No Distress, Calm Cardiovascular: Yes: Regular Rate and Rhythm, S1, S2 Respiratory: Yes: Regular, Other (crackles 1/3 up- improved from yesterday.) Gastrointestinal: Yes: Normal Bowel Sounds, Soft. No: Tenderness Edema: No Labs: CBC, BMP 04/09/17 05:30 04/09/17 05:30 INR, PTT INR 1.02 (0.82-1.09) 04/07/17 13:50 Problem List - Problems (1) CHF (congestive heart failure) Code(s): I50.9 - HEART FAILURE, UNSPECIFIED (2) Pleural effusion Code(s): J90 - PLEURAL EFFUSION, NOT ELSEWHERE CLASSIFIED (3) Pulmonary nodules Code(s): R91.8 - OTHER NONSPECIFIC ABNORMAL FINDING OF LUNG FIELD (4) Left adrenal mass Code(s): E27.9 - DISORDER OF ADRENAL GLAND, UNSPECIFIED (5) Hypertension Code(s): I10 - ESSENTIAL (PRIMARY) HYPERTENSION (6) Diabetes mellitus Code(s): E11.9 - TYPE 2 DIABETES MELLITUS WITHOUT COMPLICATIONS (7) Hypercholesteremia Code(s): E78.00 - PURE HYPERCHOLESTEROLEMIA, UNSPECIFIED Assessment/Plan Admit to Telemetry Cardio consult appreciated Pulmonary consult appreciated. Lasix IV; to monitor renal function. Thyroid US in AM AM labs
[2017-04-10] MEDS: metFORMIN HCL 500 MG TABLET (FP) PO SCH (06:18)
[2017-04-10 08:39] LABS: ANION GAP 8 (8-16); CALCIUM 9.4 mg/dL (8.5-10.1); CO2 32 mmol/L (21-32); GLUCOSE,RANDOM 123 mg/dL (74-106)
--- NOTE | 2017-04-10 08:50 | PN ---
Progress Note (short form) - Note Progress Note: s: rojo and orthopnea improving, still on o2 via nc no cp, leg swelling, dizzy, palps - Current Medication List Current Medications Generic Name Dose Route Start Last Admin Trade Name Susana PRN Reason Stop Dose Admin Aspirin 81 mg 04/08/17 10:00 04/09/17 10:32 Asa - PO 81 mg DAILY [facility] Administration Cholecalciferol 1,000 unit 04/08/17 10:00 04/09/17 10:32 Vitamin D3 - PO 1,000 unit DAILY [facility] Administration Escitalopram Oxalate 10 mg 04/08/17 10:00 04/09/17 10:32 Lexapro - PO 10 mg DAILY [facility] Administration Fenofibric Acid 135 mg 04/08/17 10:00 04/09/17 10:32 Trilipix - PO 135 mg DAILY [facility] Administration Finasteride 5 mg 04/08/17 10:00 04/09/17 10:32 Proscar - PO 5 mg DAILY [facility] Administration Furosemide 40 mg 04/08/17 10:00 04/09/17 10:32 Lasix Injection - IVPUSH 40 mg DAILY [facility] Administration Heparin Sodium (Porcine) 5,000 unit 04/07/17 22:00 04/09/17 21:38 Heparin - SQ 5,000 unit BID [facility] Administration Losartan Potassium 100 mg 04/08/17 10:00 04/09/17 10:36 Cozaar - PO 100 mg DAILY [facility] Administration Metformin HCl 500 mg 04/08/17 07:00 04/10/17 06:18 Glucophage - PO Not Given DAILY@0700 [facility] Metoprolol Succinate 12.5 mg 04/10/17 10:00 Toprol Xl - PO DAILY [facility] Multivitamins/Minerals 1 each 04/08/17 10:00 04/09/17 10:32 Theragran-M PO 1 each DAILY [facility] Administration Rosuvastatin Calcium 10 mg 04/08/17 10:00 04/09/17 10:32 Crestor - PO 10 mg DAILY [facility] Administration Tamsulosin HCl 0.4 mg 04/08/17 10:00 04/09/17 10:32 Flomax - PO 0.4 mg DAILY [facility] Administration - Objective Vital Signs: Vital Signs Period Temp Pulse Resp BP Sys/Eisenberg Pulse Ox Last 24 Hr 97.7 F-98.2 F 70-83 18-20 91-126/54-64 94-95 Constitutional: Yes: Well Nourished, No Distress, Calm Cardiovascular: Yes: Regular Rate and Rhythm, S1, S2. No: JVD, Gallop, Murmur Respiratory: Yes: Regular, CTA Bilaterally. No: Accessory Muscle Use, Rales, Wheezes Extremities: No: Cold Edema: No Neurological: Yes: Alert, Oriented Psychiatric: No: Agitated no jaundice diaphoresis Labs: CBC, BMP 04/09/17 05:30 tele: sr, occ pvcs cxr: chf cta chest: no pe, bl effs ecg: sr, lbbb (old) echo 03/2017: tds; sev dec lvef, mild dec rv fcn, nl rv size, mild lae, mod mr a/p: 77 m hx htn, hld, dm here with sob, le edema for 3 weeks. acute systolic CHF -pt with pulm congestion, chf, no known hx of such -sx's of ROJO and orthopnea for a while, saw dr shook but outpt w/u not yet completed. -was 177 at that time (04/02), 176 here initially, bnp 3K. -no signs acs -wt responding to lasix 40 iv qd, sx's improving--cont same today. still requiring o2 via nc. -echo here showing severely decreased lvef -cont arb. will dc hctz/norvasc to allow for bp room for toprol for chf regimen as well as lasix -will need ischemic eval for his newly diagnosed systolic chf, possibly nuclear stress test to start based on clinical course VTach: -brief NSVT on tele, during sleep -echo shows sev dec lvef, so will start toprol for chf regimen -ischemic eval htn: -bp controlled/low, meds as above hld: -cont home statin abnl ecg: -pt with old lbbb -echo shows sev dec lvef -will need ischemic workup at some point ex-cigs, ? copd: -needs outpt PFTs
[2017-04-10] MEDS ORDERED: METOPROLOL SUCCINATE 25 MG TAB.SR.24H (FP) PO SCH (10:00)
[2017-04-10] MEDS: TAMSULOSIN HCL 0.4 MG CAP.ER.24H (FP) PO SCH (10:09)
[2017-04-10] MEDS: LOSARTAN POTASSIUM 50 MG TABLET (FP) PO SCH (10:10)
[2017-04-10] MEDS: FINASTERIDE 5 MG TABLET (FP) PO SCH (10:10)
[2017-04-10] MEDS: ESCITALOPRAM OXALATE 10 MG TABLET (FP) PO SCH (10:10)
[2017-04-10] MEDS: MULTIVITAMINS THER W-MINERALS COMBO TABLET (FP) PO SCH (10:10)
[2017-04-10] MEDS: METOPROLOL SUCCINATE 25 MG TAB.SR.24H (FP) PO SCH (10:10)
[2017-04-10] MEDS: ROSUVASTATIN CA 10 MG TABLET (FP) PO SCH (10:10)
[2017-04-10] MEDS: CHOLECALCIFEROL (VITAMIN D3) 1,000 UNIT TABLET (FP) PO SCH (10:10)
[2017-04-10] MEDS: FENOFIBRIC ACID 135 MG CAP PO SCH (10:10)
[2017-04-10] MEDS: ASPIRIN 81 MG CHEWABLE TABLETS PO SCH (10:10)
[2017-04-10] MEDS: HEPARIN NA (PORCINE) 5,000 UNITS/ML 1ML VIAL SQ SCH ×2 (10:13→23:26)
[2017-04-10] MEDS: FUROSEMIDE 40 MG/4 ML INJECTABLE VIAL IVPUSH SCH (10:13)
--- NOTE | 2017-04-10 10:22 | PN ---
Progress Note, Physician History of Present Illness: PULMONARY ALERT,FEELING, BETTER,LESS DYSPNEIC,-CP - Current Medication List Current Medications: Active Medications Aspirin (Asa -) 81 mg PO DAILY [facility] Last Admin: 04/10/17 10:10 Dose: 81 mg Cholecalciferol (Vitamin D3 -) 1,000 unit PO DAILY [facility] Last Admin: 04/10/17 10:10 Dose: 1,000 unit Escitalopram Oxalate (Lexapro -) 10 mg PO DAILY [facility] Last Admin: 04/10/17 10:10 Dose: Not Given Fenofibric Acid (Trilipix -) 135 mg PO DAILY [facility] Last Admin: 04/10/17 10:10 Dose: 135 mg Finasteride (Proscar -) 5 mg PO DAILY [facility] Last Admin: 04/10/17 10:10 Dose: 5 mg Furosemide (Lasix Injection -) 40 mg IVPUSH DAILY [facility] Last Admin: 04/10/17 10:13 Dose: 40 mg Heparin Sodium (Porcine) (Heparin -) 5,000 unit SQ BID [facility] Last Admin: 04/10/17 10:13 Dose: 5,000 unit Losartan Potassium (Cozaar -) 100 mg PO DAILY [facility] Last Admin: 04/10/17 10:10 Dose: 100 mg Metformin HCl (Glucophage -) 500 mg PO DAILY@0700 [facility] Last Admin: 04/10/17 06:18 Dose: Not Given Metoprolol Succinate (Toprol Xl -) 12.5 mg PO DAILY [facility] Multivitamins/Minerals (Theragran-M) 1 each PO DAILY [facility] Last Admin: 04/10/17 10:10 Dose: 1 each Rosuvastatin Calcium (Crestor -) 10 mg PO DAILY [facility] Last Admin: 04/10/17 10:10 Dose: 10 mg Tamsulosin HCl (Flomax -) 0.4 mg PO DAILY [facility] Last Admin: 04/10/17 10:09 Dose: 0.4 mg - Objective Vital Signs: Vital Signs Temperature 98 F 04/10/17 05:41 Pulse Rate 77 04/10/17 05:41 Respiratory Rate 20 04/10/17 05:41 Blood Pressure 99/58 04/10/17 05:41 O2 Sat by Pulse Oximetry (%) 95 04/09/17 21:00 Constitutional: Yes: Well Nourished, Calm Eyes: Yes: WNL HENT: Yes: WNL Neck: Yes: WNL Cardiovascular: Yes: Regular Rate and Rhythm, S1, S2 Respiratory: Yes: Rales (BIBASILAR RALES) Gastrointestinal: Yes: Normal Bowel Sounds, Soft Extremities: Yes: WNL Edema: No Labs: CBC, BMP 04/09/17 05:30 04/10/17 05:28 INR, PTT INR 1.02 (0.82-1.09) 04/07/17 13:50 Assessment/Plan Assessment/Plan CHF Exacerbation improving Pleural Effusions Lung Nodules HTN DM Hyperlipidemia BPH Former Smoker - continue IV lasix - monitor urine output, creatinine - daily weights, I/Os - chest x-ray today - O2 to keep SpO2 >90% - inhaled bronchodilators as needed - outpt PFTs - lung nodules nonspecific but will need outpt f/u given smoking history when in euvolemic outpt state - DVT prophylaxis DR CÁRDENAS
--- NOTE | 2017-04-10 11:18 | PN ---
Progress Note, Physician History of Present Illness: Pt w/o SOB, CP, palp, abd pain. - Current Medication List Current Medications: Active Medications Aspirin (Asa -) 81 mg PO DAILY [facility] Last Admin: 04/10/17 10:10 Dose: 81 mg Cholecalciferol (Vitamin D3 -) 1,000 unit PO DAILY [facility] Last Admin: 04/10/17 10:10 Dose: 1,000 unit Escitalopram Oxalate (Lexapro -) 10 mg PO DAILY [facility] Last Admin: 04/10/17 10:10 Dose: Not Given Fenofibric Acid (Trilipix -) 135 mg PO DAILY [facility] Last Admin: 04/10/17 10:10 Dose: 135 mg Finasteride (Proscar -) 5 mg PO DAILY [facility] Last Admin: 04/10/17 10:10 Dose: 5 mg Furosemide (Lasix Injection -) 40 mg IVPUSH DAILY [facility] Last Admin: 04/10/17 10:13 Dose: 40 mg Heparin Sodium (Porcine) (Heparin -) 5,000 unit SQ BID [facility] Last Admin: 04/10/17 10:13 Dose: 5,000 unit Losartan Potassium (Cozaar -) 100 mg PO DAILY [facility] Last Admin: 04/10/17 10:10 Dose: 100 mg Metformin HCl (Glucophage -) 500 mg PO DAILY@0700 [facility] Last Admin: 04/10/17 06:18 Dose: Not Given Metoprolol Succinate (Toprol Xl -) 12.5 mg PO DAILY [facility] Last Admin: 04/10/17 10:10 Dose: 12.5 mg Multivitamins/Minerals (Theragran-M) 1 each PO DAILY [facility] Last Admin: 04/10/17 10:10 Dose: 1 each Rosuvastatin Calcium (Crestor -) 10 mg PO DAILY [facility] Last Admin: 04/10/17 10:10 Dose: 10 mg Tamsulosin HCl (Flomax -) 0.4 mg PO DAILY [facility] Last Admin: 04/10/17 10:09 Dose: 0.4 mg - Objective Vital Signs: Vital Signs Temperature 98.3 F 04/10/17 10:00 Pulse Rate 81 04/10/17 10:00 Respiratory Rate 20 04/10/17 10:00 Blood Pressure 95/55 04/10/17 10:00 O2 Sat by Pulse Oximetry (%) 98 04/10/17 09:00 Constitutional: Yes: No Distress Cardiovascular: Yes: Regular Rate and Rhythm, S1, S2 Respiratory: Yes: Regular, Other (crackles at bases). No: Rhonchi, Wheezes Gastrointestinal: Yes: Normal Bowel Sounds, Soft, Tenderness Edema: No Neurological: Yes: Alert, Oriented Labs: CBC, BMP 04/09/17 05:30 04/10/17 05:28 INR, PTT INR 1.02 (0.82-1.09) 04/07/17 13:50 Problem List - Problems (1) CHF (congestive heart failure) Code(s): I50.9 - HEART FAILURE, UNSPECIFIED (2) Pleural effusion Code(s): J90 - PLEURAL EFFUSION, NOT ELSEWHERE CLASSIFIED (3) Pulmonary nodules Code(s): R91.8 - OTHER NONSPECIFIC ABNORMAL FINDING OF LUNG FIELD (4) Left adrenal mass Code(s): E27.9 - DISORDER OF ADRENAL GLAND, UNSPECIFIED (5) Hypertension Code(s): I10 - ESSENTIAL (PRIMARY) HYPERTENSION (6) Diabetes mellitus Code(s): E11.9 - TYPE 2 DIABETES MELLITUS WITHOUT COMPLICATIONS (7) Hypercholesteremia Code(s): E78.00 - PURE HYPERCHOLESTEROLEMIA, UNSPECIFIED Assessment/Plan Admit to Telemetry Cardio consult appreciated Pulmonary consult appreciated. Lasix IV; to monitor renal function. Thyroid US in AM Case was d/w pt's nurse. AM labs
[2017-04-11] MEDS: metFORMIN HCL 500 MG TABLET (FP) PO SCH (06:21)
[2017-04-11 07:23] LABS: MCH 28.3 pg (25.7-33.7); MCHC 32.8 g/dl (32.0-35.9); MEAN CELL VOLUME 86.2 fl (80-96); MEAN PLT VOLUME 8.3 fl (7.5-11.1); PLATELET COUNT 230 K/MM3 (134-434); RDW 15.5 % (11.9-15.9); WHITE BLOOD COUNT 10.6 K/mm3 (4.0-10.0)
[2017-04-11 07:51] LABS: ANION GAP 9 (8-16); CALCIUM 9.4 mg/dL (8.5-10.1); CO2 28 mmol/L (21-32); CREATININE 0.8 mg/dL (0.7-1.3); GLUCOSE,RANDOM 117 mg/dL (74-106)
[2017-04-11] MEDS: CHOLECALCIFEROL (VITAMIN D3) 1,000 UNIT TABLET (FP) PO SCH (09:43)
[2017-04-11] MEDS: ASPIRIN 81 MG CHEWABLE TABLETS PO SCH (09:43)
[2017-04-11] MEDS: ROSUVASTATIN CA 10 MG TABLET (FP) PO SCH (09:43)
[2017-04-11] MEDS: FUROSEMIDE 40 MG/4 ML INJECTABLE VIAL IVPUSH SCH (09:43)
[2017-04-11] MEDS: MULTIVITAMINS THER W-MINERALS COMBO TABLET (FP) PO SCH (09:43)
[2017-04-11] MEDS: FENOFIBRIC ACID 135 MG CAP PO SCH (09:43)
[2017-04-11] MEDS: METOPROLOL SUCCINATE 25 MG TAB.SR.24H (FP) PO SCH (09:43)
[2017-04-11] MEDS: TAMSULOSIN HCL 0.4 MG CAP.ER.24H (FP) PO SCH (09:43)
[2017-04-11] MEDS: FINASTERIDE 5 MG TABLET (FP) PO SCH (09:43)
[2017-04-11] MEDS: ESCITALOPRAM OXALATE 10 MG TABLET (FP) PO SCH (09:44)
--- NOTE | 2017-04-11 10:16 | PN ---
Progress Note (short form) - Note Progress Note: s: kelley and orthopnea improved, 02 requirements improved, says he is feeling well and wants to go home today no cp, leg swelling, dizzy, palps - Current Medication List Current Medications Generic Name Dose Route Start Last Admin Trade Name Susana PRN Reason Stop Dose Admin Aspirin 81 mg 04/08/17 10:00 04/11/17 09:43 Asa - PO 81 mg DAILY [facility] Administration Cholecalciferol 1,000 unit 04/08/17 10:00 04/11/17 09:43 Vitamin D3 - PO 1,000 unit DAILY [facility] Administration Escitalopram Oxalate 10 mg 04/08/17 10:00 04/11/17 09:44 Lexapro - PO Not Given DAILY [facility] Fenofibric Acid 135 mg 04/08/17 10:00 04/11/17 09:43 Trilipix - PO 135 mg DAILY [facility] Administration Finasteride 5 mg 04/08/17 10:00 04/11/17 09:43 Proscar - PO 5 mg DAILY [facility] Administration Furosemide 40 mg 04/08/17 10:00 04/11/17 09:43 Lasix Injection - IVPUSH 04/11/17 11:00 40 mg DAILY [facility] Administration Heparin Sodium (Porcine) 5,000 unit 04/07/17 22:00 04/10/17 23:26 Heparin - SQ Not Given BID [facility] Losartan Potassium 100 mg 04/08/17 10:00 04/10/17 10:10 Cozaar - PO 100 mg DAILY [facility] Administration Metformin HCl 500 mg 04/08/17 07:00 04/11/17 06:21 Glucophage - PO Not Given DAILY@0700 [facility] Metoprolol Succinate 12.5 mg 04/10/17 10:00 04/11/17 09:43 Toprol Xl - PO 12.5 mg DAILY [facility] Administration Multivitamins/Minerals 1 each 04/08/17 10:00 04/11/17 09:43 Theragran-M PO 1 each DAILY [facility] Administration Rosuvastatin Calcium 10 mg 04/08/17 10:00 04/11/17 09:43 Crestor - PO 10 mg DAILY [facility] Administration Tamsulosin HCl 0.4 mg 04/08/17 10:00 04/11/17 09:43 Flomax - PO 0.4 mg DAILY [facility] Administration - Objective Vital Signs: Vital Signs Period Temp Pulse Resp BP Sys/Eisenberg Pulse Ox Last 24 Hr 97.7 F-98.6 F 75-79 18-20 95-108/55-65 97 Constitutional: Yes: Well Nourished, No Distress, Calm Cardiovascular: Yes: Regular Rate and Rhythm, S1, S2. No: JVD, Gallop, Murmur Respiratory: Yes: Regular, CTA Bilaterally. No: Accessory Muscle Use, Rales, Wheezes Extremities: No: Cold Edema: No Neurological: Yes: Alert, Oriented Psychiatric: No: Agitated no jaundice diaphoresis Labs: CBC, BMP 04/11/17 05:30 04/11/17 05:30 tele: sr cxr: chf cta chest: no pe, bl effs ecg: sr, lbbb (old) echo 03/2017: tds; sev dec lvef, mild dec rv fcn, nl rv size, mild lae, mod mr a/p: 77 m hx htn, hld, dm here with sob, le edema for 3 weeks. acute on chronic systolic CHF -pt with pulm congestion, chf, no known hx of such -sx's of KELLEY and orthopnea for a while, saw dr shook but outpt w/u not yet completed. -was 177 at that time (04/02), 176 here initially, bnp 3K. -no signs acs -wt/sxs/cxr responding to lasix 40 iv qd, will change to po lasix 40 qd for maintenance. -echo here showing severely decreased lvef -cont arb. while here have stopped hctz/norvasc to allow for bp room for toprol for chf regimen as well as lasix -will need ischemic eval for his newly diagnosed systolic chf, can be done as outpt as there was no acute cardiac events or indications of unstable ischemia here. VTach: -brief NSVT on tele, during sleep -echo shows sev dec lvef, so have started toprol for chf regimen -ischemic eval as outpt htn: -bp controlled/low, meds as above hld: -cont home statin abnl ecg: -pt with old lbbb -echo shows sev dec lvef -will need ischemic as above ex-cigs, ? copd: -needs outpt PFTs cardiac matute stable for dc on current cardiac meds. pt instructed to f/u with cardio dr shook in 1-2 weeks.
--- NOTE | 2017-04-11 11:16 | PN ---
Progress Note, Physician History of Present Illness: pulmonary alert,feeling better,less dyspneic. O2 sat 96% on ra - Current Medication List Current Medications: Active Medications Aspirin (Asa -) 81 mg PO DAILY [facility] Last Admin: 04/11/17 09:43 Dose: 81 mg Cholecalciferol (Vitamin D3 -) 1,000 unit PO DAILY [facility] Last Admin: 04/11/17 09:43 Dose: 1,000 unit Escitalopram Oxalate (Lexapro -) 10 mg PO DAILY [facility] Last Admin: 04/11/17 09:44 Dose: Not Given Fenofibric Acid (Trilipix -) 135 mg PO DAILY [facility] Last Admin: 04/11/17 09:43 Dose: 135 mg Finasteride (Proscar -) 5 mg PO DAILY [facility] Last Admin: 04/11/17 09:43 Dose: 5 mg Furosemide (Lasix -) 40 mg PO DAILY [facility] Heparin Sodium (Porcine) (Heparin -) 5,000 unit SQ BID [facility] Last Admin: 04/10/17 23:26 Dose: Not Given Losartan Potassium (Cozaar -) 100 mg PO DAILY [facility] Last Admin: 04/10/17 10:10 Dose: 100 mg Metformin HCl (Glucophage -) 500 mg PO DAILY@0700 [facility] Last Admin: 04/11/17 06:21 Dose: Not Given Metoprolol Succinate (Toprol Xl -) 12.5 mg PO DAILY [facility] Last Admin: 04/11/17 09:43 Dose: 12.5 mg Multivitamins/Minerals (Theragran-M) 1 each PO DAILY [facility] Last Admin: 04/11/17 09:43 Dose: 1 each Rosuvastatin Calcium (Crestor -) 10 mg PO DAILY [facility] Last Admin: 04/11/17 09:43 Dose: 10 mg Tamsulosin HCl (Flomax -) 0.4 mg PO DAILY [facility] Last Admin: 04/11/17 09:43 Dose: 0.4 mg - Objective Vital Signs: Vital Signs Temperature 98 F 04/11/17 06:20 Pulse Rate 79 04/11/17 06:20 Respiratory Rate 20 04/11/17 06:20 Blood Pressure 108/65 04/11/17 06:20 O2 Sat by Pulse Oximetry (%) 97 04/10/17 21:00 Constitutional: Yes: Well Nourished, Calm Eyes: Yes: WNL HENT: Yes: WNL Neck: Yes: WNL Cardiovascular: Yes: Regular Rate and Rhythm, S1, S2 Respiratory: Yes: Rales (bibasilar crackles) Gastrointestinal: Yes: Normal Bowel Sounds, Soft Extremities: Yes: WNL Edema: No Labs: CBC, BMP 04/11/17 05:30 04/11/17 05:30 INR, PTT INR 1.02 (0.82-1.09) 04/07/17 13:50 - ....Imaging Chest X-ray: Report Reviewed, Image Reviewed (increased congestion increased r pleural effusion) Assessment/Plan Assessment/Plan CHF Exacerbation improving Pleural Effusions Lung Nodules HTN DM Hyperlipidemia BPH Former Smoker - lasix po - monitor urine output, creatinine - daily weights, I/Os - O2 to keep SpO2 >90% - inhaled bronchodilators as needed - outpt PFTs - lung nodules nonspecific but will need outpt f/u given smoking history when in euvolemic outpt state - DVT prophylaxis DR CÁRDENAS
[2017-04-11 11:28] VITALS: PULSE 80
[2017-04-11] MEDS: LOSARTAN POTASSIUM 50 MG TABLET (FP) PO SCH (11:48)
[2017-04-11] MEDS: HEPARIN NA (PORCINE) 5,000 UNITS/ML 1ML VIAL SQ SCH (11:50)
--- NOTE | 2017-04-11 12:57 | DS ---
Physical Examination Vital Signs: Vital Signs Temperature 97.8 F 04/11/17 10:00 Pulse Rate 80 04/11/17 10:00 Respiratory Rate 20 04/11/17 10:00 Blood Pressure 116/63 04/11/17 10:00 O2 Sat by Pulse Oximetry (%) 94 L 04/11/17 09:00 Findings/Remarks: Pt w/o SOB, CP, palpitations. Pt w/o N, V, abd pain. Pt w/o ROJO today (improved since yesterday) Constitutional: Yes: No Distress, Calm Cardiovascular: Yes: Regular Rate and Rhythm, S1, S2 Respiratory: Yes: Regular, Other (minimal scattered crackles at both bases ( improved since yesterday)) Gastrointestinal: Yes: Normal Bowel Sounds, Soft. No: Tenderness Edema: No Neurological: Yes: Alert, Oriented Labs: CBC, BMP 04/11/17 05:30 04/11/17 05:30 Discharge Summary Reason For Visit: CHF Current Active Problems Abnormal thyroid function test (Acute) CHF (congestive heart failure) (Acute) Diabetes mellitus (Acute) Hypercholesteremia (Acute) Hypertension (Acute) Left adrenal mass (Acute) Pleural effusion (Acute) Pulmonary nodules (Acute) Procedures: Principal: Chest CTA. ECHO Other Procedures: CXR Hospital Course: Pt came to ER with progressive SOB, over prior 3 weeks, associated with cough, to the point that couldn't sleep. Pt had Chest CTA in ER, c/w bilat. moderate Pleural Effusion, right lung Pulmonary nodules, left Adrenal Gland Nodule, severe coronary arteries atherosclerosis. Pt was found in Acute CHF exacerbation, started in IV Lasix. Pt also with hypoxemia, required O2 supplementation. Pt was seen by Cardio (Dr. Soriano/ Rebecca), Pulmonary (Dr. Pang / Elpidio). Pt's ECHO was consistant with reduced EF. Pt improved slowly adn would be DC'ed Home with outpt office f/u. Condition: Improved - Instructions Diet, Activity, Other Instructions: Low salt, Low cholesterol, ADA. Repeate CBC, BMP, TSH, Free T4 Pt needs lung nodules follow-up. Pt needs further evaluation of left adrenal gland nodule. Referrals: Salma Alas MD [Staff Physician] - (next week) Adrian Magallanes MD [Staff Physician] - (in 4 Weeks; pt needs lung nodules follow- up) Judy Cardoso MD [Primary Care Provider] - (within one week. Pt needs lung nodules follow-up. Pt needs further evaluation of left adrenal gland nodule.) Disposition: HOME - Home Medications Comprehensive Discharge Medication List: Ambulatory Orders Amlodipine Besylate [Norvasc -] 10 mg PO DAILY 04/07/17 Aspirin [ASA -] 81 mg PO DAILY 04/07/17 Cholecalciferol (Vitamin D3) [Vitamin D3 -] 1,000 unit PO DAILY 04/07/17 Escitalopram Oxalate [Lexapro -] 10 mg PO DAILY 04/07/17 Fenofibrate 150 mg PO DAILY 04/07/17 Finasteride [Proscar] 5 mg PO DAILY 04/07/17 Hydrochlorothiazide [Hctz -] 25 mg PO DAILY 04/07/17 Losartan Potassium 100 mg PO DAILY 04/07/17 Metformin HCl 500 mg PO DAILY 04/07/17 Multivit-Min/Iron Fum/Folic AC [Xvauh-Ikdhffu-Clngclbx Tablet] 1 each PO DAILY 04/07/17 Nicotine Polacrilex [Nicotine Lozenge] 4 mg BC PRN 04/07/17 Rosuvastatin Calcium [Crestor] 10 mg PO DAILY 04/07/17 Tamsulosin HCl [Flomax] 0.4 mg PO DAILY 04/07/17
[2017-04-11 14:26] VITALS: BP 118/56; TEMP 98
[2017-04-12] MEDS ORDERED: FUROSEMIDE 40 MG TABLET (FP) PO SCH (10:00)
== END 2017-04-11 14:19 | disposition home or self-care (01) | DRG 292 ==
LOC: JER 12:36 → JERBED 16:03 → UNDOADMIN 16:10 → J4W 20:24
PROVIDERS: ADMIT Internal Medicine; ATTEND Internal Medicine
DX: I11.0 Hypertensive heart disease with heart failure (principal); I47.2 Ventricular tachycardia; I50.23 Acute on chronic systolic (congestive) heart failure; E78.5 Hyperlipidemia, unspecified; N40.0 Benign prostatic hyperplasia without lower urinary tract symptoms; I44.7 Left bundle-branch block, unspecified; Z87.891 Personal history of nicotine dependence; R91.1 Solitary pulmonary nodule; E27.9 Disorder of adrenal gland, unspecified; E11.9 Type 2 diabetes mellitus without complications; Z79.84 Long term (current) use of oral hypoglycemic drugs; R94.31 Abnormal electrocardiogram [ECG] [EKG]
CPT/HCPCS: 36415; 71010-TC; 71020-TC; 71275-TC; 80048; 80053; 83735; 83880; 84439; 84443; 84484; 85025; 85027; 85610; 85730; 93005; 93010; 93306-TC; 99284-25; J1644

== ENCOUNTER 2018-03-10 12:37 | Inpatient (IN) | payer OTHER ==
--- NOTE | 2018-03-10 12:41 | PDOC ---
History of Present Illness - General Chief Complaint: Shortness of Breath Stated Complaint: SHORTNESS OF BREATH Time Seen by Provider: 03/10/18 12:41 - History of Present Illness Initial Comments: 78 year old male with PMH of HTN, HLD, NIDDM, congestive heart faulre (EF 39.9 and restrictive pattern with dilated IVC), and BPH presenting with SOB for the past ___ days. Sherwin states that ____ 03/10/18 12:42 Past History - Past Medical History Allergies/Adverse Reactions: Allergies Allergy/AdvReac Type Severity Reaction Status Date / Time No Known Drug Allergies Allergy Verified 03/10/18 12:39 Home Medications: Ambulatory Orders Aspirin [ASA -] 81 mg PO DAILY 04/07/17 Cholecalciferol (Vitamin D3) [Vitamin D3 -] 1,000 unit PO DAILY 04/07/17 Escitalopram Oxalate [Lexapro -] 10 mg PO DAILY 04/07/17 Fenofibrate 150 mg PO DAILY 04/07/17 Finasteride [Proscar] 5 mg PO DAILY 04/07/17 Losartan Potassium 100 mg PO DAILY 04/07/17 Multivit-Min/Iron Fum/Folic AC [Qowyu-Vkadidd-Uudpzhkl Tablet] 1 each PO DAILY 04/07/17 Nicotine Polacrilex [Nicotine Lozenge] 4 mg BC PRN 04/07/17 Rosuvastatin Calcium [Crestor] 10 mg PO DAILY 04/07/17 Tamsulosin HCl [Flomax] 0.4 mg PO DAILY 04/07/17 metFORMIN HCL [Metformin HCl] 500 mg PO DAILY 04/07/17 Furosemide [Lasix -] 40 mg PO DAILY #90 tablet 04/11/17 Metoprolol Succinate [Toprol XL -] 12.5 mg PO DAILY #15 tab MDD 1 04/11/17 Anemia: No Asthma: No Cancer: No Cardiac Disorders: No CVA: No COPD: No CHF: No Dementia: No Diabetes: Yes (PRE) GI Disorders: No Disorders: No HTN: Yes Hypercholesterolemia: Yes Liver Disease: No Seizures: No Thyroid Disease: No - Surgical History Abdominal Surgery: No Appendectomy: No Cardiac Surgery: No Cholecystectomy: No Lung Surgery: No Neurologic Surgery: No Orthopedic Surgery: Yes (TRIGGER FINGER BILATERAL) - Suicide/Smoking/Psychosocial Hx Smoking History: Former smoker Have you smoked in the past 12 months: Yes Number of Cigarettes Smoked Daily: 15 If you are a former smoker, when did you quit?: 3 YRS AGO 'Breaking Loose' booklet given: 07/30/12 Hx Alcohol Use: No Drug/Substance Use Hx: No Substance Use Type: None Hx Substance Use Treatment: No
--- NOTE | 2018-03-10 12:51 | PDOC ---
Attending Attestation - Resident Resident Name: Arthur Bishop - ED Attending Attestation I have performed the following: I have examined & evaluated the patient, The case was reviewed & discussed with the resident, I agree w/resident's findings & plan, Exceptions are as noted - Physicial Exam PE: 03/10/18 13:34 awake alert lungs with crackles bilaterall bases. normal effort. abd soft nt nd. ext wwp no edema. no calf tenderness. skin warm and dry. - Medical Decision Making 03/10/18 12:44 d/w pcp pt h/o ckd, dm chf, cad, defibrillator recently on torsemide and spironolactone was hypotensive in [address] [facility] had stent to LAD 06/2017 basline 49/1.4 bun creat. held diuretic bc renal failure 2.7cr. 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 michelle diferential pna, effusion worsening chf, anemia. renal failure. plan labs ekg cxr echo.admit 03/10/18 13:36 <Fide De La Cruz - Last Filed: 03/10/18 13:32> - HPI HPI: 03/10/18 13:12 The patient is a 78 year old male BIBEMS, with a past medical history of HTN, HLD, DM, CKD, CHF, and CAD who presents to the emergency department for evaluation of shortness of breath. Patient reports a 3 day history of worsening shortness of breath, exacerbated when laying flat. He reports intermittent episodes of chest tightness. 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 Pt still has blockage in LAD. He denies fever, chills, nausea, vomiting, hematuria, hematochezia, melena, diarrhea, and constipation. PCP: Dr. Cardoso Operations Expert: Dr. Cortez <Clifton Fernandez - Last Filed: 03/10/18 13:37> Attestations - Attestations Documentation prepared by Clifton Fernandez, acting as medical technicians for Fide De La Cruz MD. <Clifton Fernandez - Last Filed: 03/10/18 13:37>
--- NOTE | 2018-03-10 12:54 | PDOC ---
History of Present Illness - General Chief Complaint: Shortness of Breath Stated Complaint: SHORTNESS OF BREATH Time Seen by Provider: 03/10/18 12:41 History Source: Patient Exam Limitations: No Limitations - History of Present Illness Initial Comments: 03/10/18 12:50 The patient is a 78M with a PMH of CHF (EF 39.9%), HTN, HLD, and DM who presents to the ER with worsening SOB. The patient states that his SOB has been worsening x 3 days and last night he could not lay flat at all because he could not breathe. He states he has retrosternal chest tightness that does not radiate and is intermittent, without exacerbating or alleviating factors. He denies nausea, vomiting, fever, chills, hematuria, hematochezia, melena, and cough. Past History - Past Medical History Allergies/Adverse Reactions: Allergies Allergy/AdvReac Type Severity Reaction Status Date / Time No Known Drug Allergies Allergy Verified 03/10/18 12:39 Home Medications: Ambulatory Orders Cholecalciferol (Vitamin D3) [Vitamin D3 -] 2,000 unit PO DAILY 04/07/17 Escitalopram Oxalate [Lexapro -] 10 mg PO DAILY 04/07/17 Fenofibrate 150 mg PO DAILY 04/07/17 Finasteride [Proscar] 5 mg PO DAILY 04/07/17 Losartan Potassium 50 mg PO DAILY 04/07/17 Multivit-Min/Iron Fum/Folic AC [Tistf-Djjuhua-Mwtknbjd Tablet] 1 each PO DAILY 04/07/17 Rosuvastatin Calcium [Crestor] 10 mg PO DAILY 04/07/17 Tamsulosin HCl [Flomax] 0.4 mg PO HS 04/07/17 metFORMIN HCL [Metformin HCl] 500 mg PO HS 04/07/17 Allopurinol [Zyloprim -] 100 mg PO DAILY 03/10/18 Clopidogrel Bisulfate [Plavix] 75 mg PO DAILY 03/10/18 Colchicine 0.6 mg PO DAILY 03/10/18 Metolazone [Zaroxolyn -] 0 mg PO ASDIR PRN 03/10/18 Metoprolol Succinate [Toprol XL -] 50 mg PO BID 03/10/18 Nicotine Polacrilex [Nicorette] 4 mg BC ASDIR PRN 03/10/18 Rivaroxaban [Xarelto -] 15 mg PO DAILY 03/10/18 Spironolactone [Aldactone] 25 mg PO HS 03/10/18 Torsemide [Demadex] 40 mg PO DAILY 03/10/18 Anemia: No Asthma: No Cancer: No Cardiac Disorders: No CVA: No COPD: No CHF: No Dementia: No Diabetes: Yes (PRE) GI Disorders: No Disorders: No HTN: Yes Hypercholesterolemia: Yes Liver Disease: No Seizures: No Thyroid Disease: No - Surgical History Abdominal Surgery: No Appendectomy: No Cardiac Surgery: No Cholecystectomy: No Lung Surgery: No Neurologic Surgery: No Orthopedic Surgery: Yes (TRIGGER FINGER BILATERAL) - Suicide/Smoking/Psychosocial Hx Smoking History: Former smoker Have you smoked in the past 12 months: Yes Number of Cigarettes Smoked Daily: 15 If you are a former smoker, when did you quit?: 3 YRS AGO 'Breaking Loose' booklet given: 07/30/12 Hx Alcohol Use: No Drug/Substance Use Hx: No Substance Use Type: None Hx Substance Use Treatment: No Review of Systems - Review of Systems Able to Perform ROS?: Yes Comments:: 03/10/18 13:18 GENERAL/CONSTITUTIONAL: No fever or chills. No weakness. HEAD, EYES, EARS, NOSE AND THROAT: No change in vision. No ear pain or discharge. No sore throat. CARDIOVASCULAR: Positive for chest tightness. No chest pain, palpitations, or lightheadedness. RESPIRATORY: Positive for shortness of breath. No cough, wheezing, or hemoptysis. GASTROINTESTINAL: No nausea, vomiting, diarrhea, constipation, or abdominal pain. GENITOURINARY: No dysuria, frequency, hematuria, or change in urination. MUSCULOSKELETAL: No joint or muscle swelling or pain. No neck or back pain. SKIN: No rash or lesions. NEUROLOGIC: No headache, numbness, tingling, weakness, loss of consciousness, or change in strength/sensation. ENDOCRINE: No increased thirst. No abnormal weight change. HEMATOLOGIC/LYMPHATIC: No anemia, easy bleeding, or history of blood clots. ALLERGIC/IMMUNOLOGIC: No hives or skin allergy. Is the patient limited Belgian proficient: No *Physical Exam - Physical Exam Comments: 03/10/18 13:21 GENERAL: Well developed, well nourished. Awake and alert. No acute distress. HEENT: Normocephalic, atraumatic. Hearing grossly normal. Moist mucous membranes. EOMI. No conjunctival pallor. Sclera are non-icteric. NECK: Supple. Full ROM. No JVD. CARDIOVASCULAR: Regular rate and rhythm. No murmurs, rubs, or gallops. PULMONARY: No evidence of respiratory distress. B/l lower lobe crackles. ABDOMINAL: Soft. Non-tender. Non-distended. No rebound or guarding. GENITOURINARY: No CVA tenderness bilaterally. MUSCULOSKELETAL: Normal range of motion at all joints. No bony deformities or tenderness. EXTREMITIES: No cyanosis. No clubbing. No edema. No calf tenderness or swelling. SKIN: Warm and dry. Normal capillary refill. No rashes. No jaundice. NEUROLOGICAL: Alert, awake, appropriate. Cranial nerves 2-12 grossly intact. Normal speech. Gait is normal without ataxia. PSYCHIATRIC: Cooperative. Good eye contact. Appropriate mood and affect. Heart Score/ECG Review #1 General ECG Interpretation: Sinus Rhythm, Normal Rate, Normal Intervals, No acute ischemic changes Compared to previous ECG there are: Changes noted 03/10/18 13:21 NSR vent rate 90 CO 192 QRS 144 QTc 513 Unchanged from previous except for 1 PVC noted No STD or DEANA No signs of acute ischemia. ED Treatment Course - LABORATORY CBC & Chemistry Diagram: 03/10/18 13:30 03/10/18 13:30 Medical Decision Making - Medical Decision Making 03/10/18 13:22 The patient is a 78M with a PMH of CHF, HTN, HLD, and DM who presents to the ER with complaints of shortness of breath. Ddx: CHF vs ACS vs other cardiopulmonary pathology. Will order labs and hold off on diuretics as patient is borderline hypotensive. PCP aware. Pending labs and will d/w pt's internship, Dr. Duong. 03/10/18 14:28 BNP elevated to 8000's with Cr of 2.3. Troponin 0.17. I have endorsed the patient to LOADING [employer] SUPERVISOR SHARON Pinzon. However, he will not come down to evaluate the pt. I have d/w nephro Dr. Boudreaux who wants to start the pt on a lasix drip, 100mg in 100mL @5mL/hour. Will place orders. 03/10/18 14:46 I have endorsed the pt to Dr. Sarmiento for admission. I have paged cards for recs. 03/10/18 19:44 KIKA Pinzon called the nurse to inform her that he refuses the pt to ICU. I have explained that the pt has maintained borderlline hypotensive BP's, is on a lasix drip, has a troponin leak, and has an PACO. He states that they will discuss the pt at sign out. Dr. Shelton has seen the pt and agrees that the pt requires ICU management. Troponin 0.16, unchanged. *DC/Admit/Observation/Transfer Diagnosis at time of Disposition: Acute systolic CHF (congestive heart failure) CHF (congestive heart failure) Qualifiers: Heart failure type: unspecified Heart failure chronicity: acute on chronic Qualified Code(s): I50.9 - Heart failure, unspecified - Discharge Dispostion Condition at time of disposition: Guarded Decision to Admit order: Yes - Referrals - Patient Instructions - Post Discharge Activity
[2018-03-10] MEDS ORDERED: FUROSEMIDE 40 MG/4 ML INJECTABLE VIAL IVPUSH ONE (12:56)
[2018-03-10] MEDS ORDERED: FUROSEMIDE 40 MG/4 ML INJECTABLE VIAL ONE (13:13)
[2018-03-10 13:38] LABS: BASO % 0.7 % (0-2.0); EOS % 0.4 % (0-4.5); HEMATOCRIT 37.6 % (35.4-49); HEMOGLOBIN 12.4 GM/dL (11.7-16.9); LYMPH % 8.4 % (8-40); MCH 28.8 pg (25.7-33.7); MEAN CELL VOLUME 87.3 fl (80-96); MEAN PLT VOLUME 7.5 fl (7.5-11.1); MONO % 8.5 % (3.8-10.2); PLATELET COUNT 287 K/MM3 (134-434); RBC 4.31 M/mm3 (4.00-5.60); RDW 16.9 % (11.9-15.9); WHITE BLOOD COUNT 10.8 K/mm3 (4.0-10.0)
[2018-03-10 13:57] LABS: ALBUMIN 3.6 g/dl (3.4-5.0); ANION GAP 8 MMOL/L (8-16); BILIRUBIN,TOTAL 0.5 mg/dL (0.2-1.0); BLOOD UREA NITROGEN 54 mg/dL (7-18); CALCIUM 9.2 mg/dL (8.5-10.1); CHLORIDE 103 mmol/L (98-107); CO2 28 mmol/L (21-32); CREATININE 2.3 mg/dL (0.7-1.3); GLUCOSE,RANDOM 136 mg/dL (74-106); POTASSIUM 4.5 mmol/L (3.5-5.1); SGOT/AST 15 U/L (15-37); SGPT/ALT 14 U/L (12-78); SODIUM 139 mmol/L (136-145)
[2018-03-10 14:00] LABS: ALK PHOS 40 U/L (45-117); N-TERMINAL BNP 8492.31 pg/ml (5-450)
--- NOTE | 2018-03-10 14:04 | CON.CARD ---
Consult Consult Specialty:: Cardiology Referred by:: Edna Reason for Consultation:: CHF - History of Present Illness Chief Complaint: orthopnea History of Present Illness: 77M h/o HTN, HLD, DM, chronic systolic HF p/w shortness of breath for two weeks. Had been seen by me in clinic about two weeks ago, feeling tired since increasing metoprolol dose prior, decreased dose to 50 mg BID. He saw his PCP Dr. Cardoso the following day, Cr elevated 2.7 (prior Cr 1.4 12/2017), Torsemide was held for 5 days. Patient's weight remained stable, however he continued to feel tired and started to feel short of breath. Saw Dr. Cardoso two days ago, Cr 2.1, still feeling orthopnea, was advised to go to ER but refused, CXR on Sunday showed small pleural effusion and pulm edema, torsemide 40 mg daily was restarted. Presents today with daughter who is PACU nurse due to still feeling short of breath, orthopnea. Undergoing work up, CXR pending. Cr 2.3, trop 0.15, BNP >8000 - History Source History Provided By: Patient Limitations to Obtaining History: No Limitations - Past Medical History Cardio/Vascular: Yes: CHF, HTN, Hyperlipdemia Renal/: Yes: BPH Endocrine: Yes: Diabetes Mellitus - Alcohol/Substance Use Hx Alcohol Use: No - Smoking History Smoking history: Former smoker Have you smoked in the past 12 months: Yes Aproximately how many cigarettes per day: 15 If you are a former smoker, when did you quit?: 3 YRS AGO Home Medications - Allergies Allergies/Adverse Reactions: Allergies Allergy/AdvReac Type Severity Reaction Status Date / Time No Known Drug Allergies Allergy Verified 03/10/18 12:39 - Home Medications Home Medications: Ambulatory Orders Cholecalciferol (Vitamin D3) [Vitamin D3 -] 2,000 unit PO DAILY 04/07/17 Escitalopram Oxalate [Lexapro -] 10 mg PO DAILY 04/07/17 Fenofibrate 150 mg PO DAILY 04/07/17 Finasteride [Proscar] 5 mg PO DAILY 04/07/17 Losartan Potassium 50 mg PO DAILY 04/07/17 Multivit-Min/Iron Fum/Folic AC [Skphg-Oihslgu-Ymdeiyze Tablet] 1 each PO DAILY 04/07/17 Rosuvastatin Calcium [Crestor] 10 mg PO DAILY 04/07/17 Tamsulosin HCl [Flomax] 0.4 mg PO HS 04/07/17 metFORMIN HCL [Metformin HCl] 500 mg PO HS 04/07/17 Allopurinol [Zyloprim -] 100 mg PO DAILY 03/10/18 Clopidogrel Bisulfate [Plavix] 75 mg PO DAILY 03/10/18 Colchicine 0.6 mg PO DAILY 03/10/18 Metolazone [Zaroxolyn -] 0 mg PO ASDIR PRN 03/10/18 Metoprolol Succinate [Toprol XL -] 50 mg PO BID 03/10/18 Rivaroxaban [Xarelto -] 15 mg PO DAILY 03/10/18 Spironolactone [Aldactone] 25 mg PO HS 03/10/18 Torsemide [Demadex] 40 mg PO DAILY 03/10/18 Family Disease History - Family Disease History Family History: Unremarkable Review of Systems - Review of Systems Constitutional: reports: Lethargy, Weakness Eyes: reports: No Symptoms HENT: reports: No Symptoms, Ocular Prosthesis Cardiovascular: reports: Shortness of Breath Respiratory: reports: Orthopnea Gastrointestinal: reports: No Symptoms Genitourinary: reports: No Symptoms Musculoskeletal: reports: No Symptoms Integumentary: reports: No Symptoms Neurological: reports: No Symptoms Endocrine: reports: No Symptoms Hematology/Lymphatic: reports: No Symptoms Psychiatric: reports: No Symptoms Vital Signs: Vital Signs Temperature 97.8 F 03/10/18 12:41 Pulse Rate 91 H 03/10/18 12:41 Respiratory Rate 20 03/10/18 12:41 Blood Pressure 98/64 03/10/18 12:41 O2 Sat by Pulse Oximetry (%) 97 03/10/18 12:41 Constitutional: Yes: Well Nourished, No Distress, Calm Eyes: Yes: Conjunctiva Clear, EOM Intact HENT: Yes: Atraumatic, Normocephalic Neck: Yes: Supple, Trachea Midline Respiratory: Yes: Regular, On Nasal O2, Orthopnea, Rales (bilateral) Gastrointestinal: Yes: Normal Bowel Sounds, Soft Cardiovascular: Yes: Regular Rate and Rhythm JVD: Yes Heart Sounds: Yes: S1, S2 Edema: Yes Edema: LLE: Trace, RLE: Trace Peripheral Pulses: 2+ Left Doralis Pedis, 2+ Right Dorsalis Pedis Psychiatric: Yes: Alert, Oriented - Other Data Labs, Other Data: CBC, BMP 03/10/18 13:30 Assessment/Plan 77M h/o HTN, HLD, DM, chronic systolic HF p/w shortness of breath for two weeks acute on chronic systolic HF - symptoms concerning for CHF exacerbation, BNP 8000 - at home was on torsemide 80 mg BID, did not have much uop to 40mg dose per patient report - diuresis was held due to low BP on arrival to ER, however this is patient's baseline - continue bb as tolerated, hold losartan and spironolactone in setting of PACO - recommend lasix 80 mg IV BID pos troponin - likely in setting of demand, clinical picture less likely ACS - trend troponin PACO - may be cardiorenal - Cr 1.4 in clinic 12/2017 - appreciate nephrology recs HTN - low BP as above HLD - cont statin DM - manage per primary
[2018-03-10] MEDS ORDERED: ASPIRIN COATED 81 MG TABLET.EC PO ONE (14:09)
[2018-03-10] MEDS ORDERED: ASPIRIN 325 MG ENTERIC COATED TABLET (FP) ONE (14:28)
[2018-03-10] MEDS: FUROSEMIDE INJECTION 100 MG in SODIUM CHLORIDE 90 ML IVPB SCH (15:50)
--- NOTE | 2018-03-10 16:22 | HP ---
Admitting History and Physical - Primary Care Physician PCP: Oscar Sarmiento - Admission Chief Complaint: SOB History of Present Illness: Pt with known Hx/o CHF, CRF, HTN came to ER secondary to paroxysmal nocturnal dyspnea he experienced for the last night. Pt with low SBP 2 weeks ago, had Torsemide (80 mg daily) held; pt was also noticed to have worsening in his renal function (BUN 83, creatinine 2.7). One week later SBP improved, renal function improved but pt was was weak , had dyspnea at rest; his CXR was c/w mild pulmonary edema and small bilateral pleural effusions; pt refused hospitalization and he was placed on Torsemide 40 mg daily and office f/u than pt missed this passed Sunday. History Source: Patient, Significant Other (PCP) - Past Medical History Cardiovascular: Yes: CHF, HTN, Hyperlipdemia Renal/: Yes: BPH Rheumatology: Yes: Gout Endocrine: Yes: Diabetes Mellitus - Smoking History Smoking history: Former smoker Have you smoked in the past 12 months: Yes Aproximately how many cigarettes per day: 15 If you are a former smoker, when did you quit?: 3 YRS AGO - Alcohol/Substance Use Hx Alcohol Use: No Home Medications - Allergies Allergies/Adverse Reactions: Allergies Allergy/AdvReac Type Severity Reaction Status Date / Time No Known Drug Allergies Allergy Verified 03/10/18 12:39 - Home Medications Home Medications: Ambulatory Orders Cholecalciferol (Vitamin D3) [Vitamin D3 -] 2,000 unit PO DAILY 04/07/17 Escitalopram Oxalate [Lexapro -] 10 mg PO DAILY 04/07/17 Fenofibrate 150 mg PO DAILY 04/07/17 Finasteride [Proscar] 5 mg PO DAILY 04/07/17 Losartan Potassium 50 mg PO DAILY 04/07/17 Multivit-Min/Iron Fum/Folic AC [Vvssf-Rdhvvhw-Ikapvplw Tablet] 1 each PO DAILY 04/07/17 Rosuvastatin Calcium [Crestor] 10 mg PO DAILY 04/07/17 Tamsulosin HCl [Flomax] 0.4 mg PO HS 04/07/17 metFORMIN HCL [Metformin HCl] 500 mg PO HS 04/07/17 Allopurinol [Zyloprim -] 100 mg PO DAILY 03/10/18 Clopidogrel Bisulfate [Plavix] 75 mg PO DAILY 03/10/18 Colchicine 0.6 mg PO DAILY 03/10/18 Metolazone [Zaroxolyn -] 0 mg PO ASDIR PRN 03/10/18 Metoprolol Succinate [Toprol XL -] 50 mg PO BID 03/10/18 Nicotine Polacrilex [Nicorette] 4 mg BC ASDIR PRN 03/10/18 Rivaroxaban [Xarelto -] 15 mg PO DAILY 03/10/18 Spironolactone [Aldactone] 25 mg PO HS 03/10/18 Torsemide [Demadex] 40 mg PO DAILY 03/10/18 Review of Systems - Review of Systems Constitutional: reports: Weakness. denies: Chills, Fever Eyes: denies: Blurred Vision, Recent Change in Vision HENT: denies: Ear Discharge, Ear Pain, Epistaxis, Nasal Congestion, Throat Pain Neck: denies: Decreased ROM, Pain on Movement, Stiffness Cardiovascular: denies: Chest Pain, Edema, Palpitations Respiratory: reports: PND. denies: Cough Gastrointestinal: denies: Abdominal Pain, Diarrhea, Nausea, Vomiting Genitourinary: denies: Burning, Discharge, Frequency Musculoskeletal: denies: Back Pain, Joint Swelling Integumentary: denies: Blister, Bruising, Rash Neurological: denies: Change in LOC, Change in Speech, Confusion, Numbness, Tremors Endocrine: denies: Excessive Sweating, Intolerance to Cold Hematology/Lymphatic: denies: Easily Bruised, Excessive Bleeding Psychiatric: denies: Anxiety, Depression Physical Examination Vital Signs: Vital Signs Temperature 97.8 F 03/10/18 12:41 Pulse Rate 91 H 03/10/18 12:41 Respiratory Rate 20 03/10/18 12:41 Blood Pressure 98/64 03/10/18 12:41 O2 Sat by Pulse Oximetry (%) 100 03/10/18 12:45 Constitutional: Yes: No Distress, Calm Eyes: Yes: Conjunctiva Clear, EOM Intact HENT: Yes: Normocephalic. No: Drooling, Epistaxis, Pharyngeal Erythema, Rhinnorhea Neck: Yes: Trachea Midline. No: Lymphadenopathy Cardiovascular: Yes: Regular Rate and Rhythm, S1, S2 Respiratory: Yes: Regular, Other (crackles at both bases and 1/3 up) Gastrointestinal: Yes: Normal Bowel Sounds, Soft. No: Hepatomegaly, Splenomegaly, Tenderness ...Rectal Exam: Yes: Deferred Renal/: No: CVA Tenderness - Left, CVA Tenderness - Right Edema: LLE: Trace, RLE: Trace Integumentary: No: Bruising, Rash Neurological: Yes: Alert, Oriented. No: Cran Nerves II-XII Intact Labs: CBC, BMP 03/10/18 13:30 03/10/18 13:30 Imaging - Results Chest X-ray: Image Reviewed Problem List - Problems (1) Acute systolic CHF (congestive heart failure) Code(s): I50.21 - ACUTE SYSTOLIC (CONGESTIVE) HEART FAILURE (2) Elevated troponin I level Code(s): R74.8 - ABNORMAL LEVELS OF OTHER SERUM ENZYMES (3) Hypotension Code(s): I95.9 - HYPOTENSION, UNSPECIFIED (4) PACO (acute kidney injury) Code(s): N17.9 - ACUTE KIDNEY FAILURE, UNSPECIFIED (5) CRF (chronic renal failure) Code(s): N18.9 - CHRONIC KIDNEY DISEASE, UNSPECIFIED (6) Hypercholesteremia Code(s): E78.00 - PURE HYPERCHOLESTEROLEMIA, UNSPECIFIED (7) Hypertension Code(s): I10 - ESSENTIAL (PRIMARY) HYPERTENSION (8) Pleural effusion Code(s): J90 - PLEURAL EFFUSION, NOT ELSEWHERE CLASSIFIED Assessment/Plan Admit to monitor bed, ICU. Serial CE Cardion Consult. Renal Consult Lasix IV drip To readjust meds as pt is hypotension, needs Lasix; ARB, SPIRONOLACTONE, TORSEMIDE, METFORMIN to be held for now. BGM with Novolog coverage. AM labs. Pt's daughter is at bedside ( in ER). Pt's condition was reviewed with both; all questions were answered. Time for managing pt's care: over 85 minutes.
--- NOTE | 2018-03-10 17:12 | CON.NEP ---
Consult Consult Specialty:: nephrology Referred by:: meena harley Reason for Consultation:: hui on ckd - History of Present Illness Chief Complaint: sob History of Present Illness: chronic chf on torsemide c/o worse fatigue after increasing betablocker dose was told to hold torsemide x 5 days now has sob, low bp and worsening kidney function - History Source History Provided By: Patient Limitations to Obtaining History: No Limitations - Past Medical History Cardio/Vascular: Yes: CHF, HTN, Hyperlipdemia Renal/: Yes: BPH Endocrine: Yes: Diabetes Mellitus - Alcohol/Substance Use Hx Alcohol Use: No - Smoking History Smoking history: Former smoker Have you smoked in the past 12 months: Yes Aproximately how many cigarettes per day: 15 If you are a former smoker, when did you quit?: 3 YRS AGO Home Medications - Allergies Allergies/Adverse Reactions: Allergies Allergy/AdvReac Type Severity Reaction Status Date / Time No Known Drug Allergies Allergy Verified 03/10/18 12:39 - Home Medications Home Medications: Ambulatory Orders Cholecalciferol (Vitamin D3) [Vitamin D3 -] 2,000 unit PO DAILY 04/07/17 Escitalopram Oxalate [Lexapro -] 10 mg PO DAILY 04/07/17 Fenofibrate 150 mg PO DAILY 04/07/17 Finasteride [Proscar] 5 mg PO DAILY 04/07/17 Losartan Potassium 50 mg PO DAILY 04/07/17 Multivit-Min/Iron Fum/Folic AC [Askht-Hfocndz-Ijdlklps Tablet] 1 each PO DAILY 04/07/17 Rosuvastatin Calcium [Crestor] 10 mg PO DAILY 04/07/17 Tamsulosin HCl [Flomax] 0.4 mg PO HS 04/07/17 metFORMIN HCL [Metformin HCl] 500 mg PO HS 04/07/17 Allopurinol [Zyloprim -] 100 mg PO DAILY 03/10/18 Clopidogrel Bisulfate [Plavix] 75 mg PO DAILY 03/10/18 Colchicine 0.6 mg PO DAILY 03/10/18 Metolazone [Zaroxolyn -] 0 mg PO ASDIR PRN 03/10/18 Metoprolol Succinate [Toprol XL -] 50 mg PO BID 03/10/18 Nicotine Polacrilex [Nicorette] 4 mg BC ASDIR PRN 03/10/18 Rivaroxaban [Xarelto -] 15 mg PO DAILY 03/10/18 Spironolactone [Aldactone] 25 mg PO HS 03/10/18 Torsemide [Demadex] 40 mg PO DAILY 03/10/18 Nephrology Consult - Height Height: 5 ft 8.5 in - Weight Weight: 185 lb - BMI Body Mass Index (BMI): 27.7 - Lab Results CBC,BMP: CBC, BMP 03/10/18 13:30 03/10/18 13:30 Anion Gap: Anion Gap Anion Gap 8 MMOL/L (8-16) 03/10/18 13:30 - Physical Examination Vital Signs: Vital Signs Temperature 97.8 F 03/10/18 12:41 Pulse Rate 88 03/10/18 16:56 Respiratory Rate 21 03/10/18 16:56 Blood Pressure 88/65 03/10/18 16:56 O2 Sat by Pulse Oximetry (%) 100 03/10/18 16:56 Constitutional: Yes: Well Nourished, No Distress, Calm Eyes: Yes: WNL, Conjunctiva Clear, EOM Intact HENT: Yes: WNL, Atraumatic, Normocephalic Neck: Yes: WNL, Supple, Trachea Midline Cardiovascular: Yes: WNL, Regular Rate and Rhythm Respiratory: Yes: WNL, Regular, CTA Bilaterally Gastrointestinal: Yes: WNL, Normal Bowel Sounds Extremities: Yes: WNL Edema: Yes Edema: LLE: Trace, RLE: Trace Integumentary: Yes: WNL Neurological: Yes: WNL, Alert, Oriented Psychiatric: Yes: WNL, Alert, Oriented Assessment/Plan hui s creat 2.7 , today 2.3 on admission labs decompensated hf- wt 185 lbs, was 173 lbs in mar 2017 off diuretics x 5 days very little peripheral edema at baseline, trace edema now cardiorenal syndrome hypotension? he ran low bp's in the past with systolic in the 110's H/O HTN (when?) HLD DM CKD baseline s creat 1.4 Plan- trial of lasix infusion for diuresis with less hemodynamic consequence
--- NOTE | 2018-03-10 21:53 | EKG ---
Test Reason : Blood Pressure : / mmHG Vent. Rate : 089 BPM Atrial Rate : 089 BPM P-R Int : 192 ms QRS Dur : 144 ms QT Int : 422 ms P-R-T Axes : 068 001 081 degrees QTc Int : 513 ms SINUS RHYTHM WITH OCCASIONAL PREMATURE VENTRICULAR COMPLEXES LEFT BUNDLE BRANCH BLOCK ABNORMAL ECG WHEN COMPARED WITH ECG OF 07-APR-2017 13:33, PREMATURE VENTRICULAR COMPLEXES ARE NOW PRESENT QRS DURATION HAS INCREASED Confirmed by HONG DYER, CARMEN ([id number]) on 03/10/2018 9:53:10 PM Referred By: Confirmed By:CARMEN PITTS MD
--- NOTE | 2018-03-10 23:36 | CONSULT ---
Consultation: REQUESTING PROVIDER: CONSULT REQUEST: ICU HISTORY OF PRESENT ILLNESS: The patient is a 78 year old with a PMH of CHF, CAD, s/p stent in 2017, CKD, HLD , pre diabetes, who presents to the hospital with worsening SOB x 3 days. According to the family present at bedside, he couldn't sleep last night due to breathing difficulty. He also endorsed chest heaviness on arrival to ED. It was intermittent, no exacerbating or alleviating factors, no palpitations. He was seen by his Journeyman Glazier 2 weeks ago, his Metoprolol was decreased to 50 mg BID. Benzene Washer Operator held Torsemide for 5 days, resumed two days ago with recommendation to go to ER but the patient refused. He denies palpitations, nausea, vomiting, fever, chills, cough. In ED the patient was started on Lasix drip, noted to by hypotensive. Upon arrival to ICU he is AAOx3, no acute distress, lying comfortable in bed, BP 92/66, HR 92, Oxyg. Sat 100 on NC. He states that his breathing improved, no more chest tightness. REVIEW OF SYSTEMS: CONSTITUTIONAL: Absent: fever, chills, diaphoresis, generalized weakness, malaise, loss of appetite, weight change HEENT: Absent: rhinorrhea, nasal congestion, throat pain, throat swelling, difficulty swallowing CARDIOVASCULAR: Absent: chest pain, syncope, palpitations, irregular heart rate RESPIRATORY: shortness of breath, dyspnea with exertion Absent: cough, orthopnea, wheezing GASTROINTESTINAL: Absent: abdominal pain, abdominal distension, nausea, vomiting, diarrhea GENITOURINARY: Absent: dysuria, frequency, urgency, hesitancy, hematuria, flank pain MUSCULOSKELETAL: Absent: myalgia, arthralgia, joint swelling, back pain, neck pain SKIN: Absent: rash, itching, pallor NEUROLOGIC: Absent: headache, focal weakness PSYCHIATRIC: Absent: anxiety, depression PHYSICAL EXAMINATION Vital Signs - 24 hr 03/10/18 03/10/18 03/10/18 12:41 12:45 16:56 Temperature 97.8 F Pulse Rate 91 H Pulse Rate [ 88 Radial] Respiratory 20 21 Rate Blood Pressure 98/64 Blood Pressure 88/65 [Right Arm] O2 Sat by Pulse 97 100 100 Oximetry (%) 03/10/18 03/10/18 03/10/18 17:13 17:30 18:00 Temperature Pulse Rate 89 Pulse Rate [ 89 91 H Radial] Respiratory 22 24 25 H Rate Blood Pressure 104/68 Blood Pressure 89/67 89/66 [Right Arm] O2 Sat by Pulse 100 97 99 Oximetry (%) 03/10/18 03/10/18 03/10/18 18:30 19:00 19:30 Temperature Pulse Rate Pulse Rate [ 85 87 86 Radial] Respiratory 21 21 23 Rate Blood Pressure Blood Pressure 95/66 84/63 85/56 [Right Arm] O2 Sat by Pulse 100 100 98 Oximetry (%) 03/10/18 03/10/18 03/10/18 21:59 22:30 22:39 Temperature 97.8 F Pulse Rate 85 80 Pulse Rate [ Radial] Respiratory 22 21 Rate Blood Pressure 104/66 92/56 Blood Pressure [Right Arm] O2 Sat by Pulse 100 Oximetry (%) GENERAL: Awake, alert, and fully oriented, in no acute distress. HEAD: Normal with no signs of trauma. EYES: Extraocular movements intact, sclera anicteric, conjunctiva clear. EARS, NOSE, THROAT: Oropharynx clear without exudates. Moist mucous membranes. NECK: Normal range of motion, supple without lymphadenopathy, JVD, or masses. LUNGS: Breath sounds equal, crackles at bases bilaterally, no wheezes.No accessory muscle use. HEART: Regular rate and rhythm, normal S1 and S2 without murmur, rub or gallop. ABDOMEN: Soft, nontender, distended, normoactive bowel sounds, no guarding, no rebound, no masses. UPPER EXTREMITIES: No peripheral edema. LOWER EXTREMITIES: 2+ pulses, no peripheral edema. NEUROLOGICAL: No focal, no slurred speech. PSYCHIATRIC: Cooperative. Good eye contact. Appropriate mood and affect. SKIN: Warm, dry, normal turgor, no rashes. Laboratory Results - last 24 hr 03/10/18 03/10/18 03/10/18 13:30 13:30 17:20 WBC 10.8 H RBC 4.31 Hgb 12.4 Hct 37.6 D MCV 87.3 MCH 28.8 MCHC 33.0 RDW 16.9 H Plt Count 287 D MPV 7.5 Absolute Neuts (auto) 8.8 H Neutrophils % 82.0 Lymphocytes % 8.4 D Monocytes % 8.5 Eosinophils % 0.4 Basophils % 0.7 Nucleated RBC % 0 Sodium 139 Potassium 4.5 Chloride 103 Carbon Dioxide 28 Anion Gap 8 BUN 54 H Creatinine 2.3 H Creat Clearance w eGFR 27.78 POC Glucometer Random Glucose 136 H Calcium 9.2 Total Bilirubin 0.5 AST 15 ALT 14 Alkaline Phosphatase 40 L Creatine Kinase 70 Troponin I 0.17 H D 0.16 H B-Natriuretic Peptide 8492.31 H Total Protein 7.0 Albumin 3.6 03/10/18 22:27 WBC RBC Hgb Hct MCV MCH MCHC RDW Plt Count MPV Absolute Neuts (auto) Neutrophils % Lymphocytes % Monocytes % Eosinophils % Basophils % Nucleated RBC % Sodium Potassium Chloride Carbon Dioxide Anion Gap BUN Creatinine Creat Clearance w eGFR POC Glucometer [phone] Random Glucose Calcium Total Bilirubin AST ALT Alkaline Phosphatase Creatine Kinase Troponin I B-Natriuretic Peptide Total Protein Albumin Active Medications Generic Name Dose Route Start Last Admin Trade Name Freq PRN Reason Stop Dose Admin Furosemide 100 mg/ Sodium 100 mls @ 5 mls/hr 03/10/18 14:45 03/10/18 15:50 Chloride IVPB 5 mg/hr ASDIR ABI 5 mls/hr Administration Protocol 5 MG/HR ASSESSMENT/PLAN: The patient is a 78 year old with a PMH of CHF, CAD, s/p stent in 2017, CKD, HLD , pre diabetes, who presents to the hospital with worsening SOB x 3 days. He is admitted for CHF exacerbation and hypotension. CHF exacerbation hypotension cardiorenal syndrome? CAD s/p stent PACO on CKD Baseline Cr 1.4 pre DM Plan: giben lasix 40 mg IV in EE, continue Lasix drip as per Nephro recommendations monitor BP, stable after arrival to ICU monitor BP, baseline systolic 115-120, today in 80s f/u troponins, no new ekch changes, no timo/std given ASA in ED strict I&O, daily weights hold BP medications hold nephrotoxic substances; Losartan, Metformin continue home meds tomorrow DVT PPX scds Dispo: We will continue to follow the patient. Thank you for this consultative opportunity. Visit type - Emergency Visit Emergency Visit: Yes ED Registration Date: 03/10/18 Care time: The patient presented to the Emergency Department on the above date and was hospitalized for further evaluation of their emergent condition. - New Patient This patient is new to me today: Yes Date on this admission: 03/11/18 - Critical Care Critical Care patient: Yes Total Critical Care Time (in minutes): 40 Critical Care Statement: The care of this patient involved high complexity decision making to prevent further life threatening deterioration of the patient 's condition and/or to evaluate & treat vital organ system(s) failure or risk of failure.
[2018-03-11 06:07] LABS: BASO % 0.6 % (0-2.0); EOS % 1.1 % (0-4.5); HEMATOCRIT 38.6 % (35.4-49); HEMOGLOBIN 12.6 GM/dL (11.7-16.9); LYMPH % 12.7 % (8-40); MCH 28.4 pg (25.7-33.7); MCHC 32.5 g/dl (32.0-35.9); MEAN CELL VOLUME 87.4 fl (80-96); MONO % 9.8 % (3.8-10.2); NEUT % 75.8 % (42.8-82.8); PLATELET COUNT 289 K/MM3 (134-434); RBC 4.42 M/mm3 (4.00-5.60); RDW 16.6 % (11.9-15.9); WHITE BLOOD COUNT 11.8 K/mm3 (4.0-10.0)
[2018-03-11 06:29] LABS: ALBUMIN 3.8 g/dl (3.4-5.0); ANION GAP 11 MMOL/L (8-16); BILIRUBIN,TOTAL 0.5 mg/dL (0.2-1.0); BLOOD UREA NITROGEN 57 mg/dL (7-18); CALCIUM 9.1 mg/dL (8.5-10.1); CHLORIDE 103 mmol/L (98-107); CO2 26 mmol/L (21-32); CREATININE 2.2 mg/dL (0.7-1.3); GLUCOSE,RANDOM 121 mg/dL (74-106); POTASSIUM 4.5 mmol/L (3.5-5.1); SGOT/AST 14 U/L (15-37); SGPT/ALT 15 U/L (12-78); SODIUM 140 mmol/L (136-145); TOT PROT 7.2 g/dl (6.4-8.2)
[2018-03-11] MEDS ORDERED: FINASTERIDE 5 MG TABLET (FP) PO ONE (06:33)
[2018-03-11 06:35] LABS: ALK PHOS 41 U/L (45-117)
[2018-03-11] MEDS: INSULIN SLIDING SCALE (NOVOLOG) 1 VIAL SQ SCH ×4 (06:36→22:50)
[2018-03-11] MEDS ORDERED: PT OWN MED DRAWER 7, Y5N ONE ×2 (09:44→22:43)
[2018-03-11] MEDS: ESCITALOPRAM OXALATE 10 MG TABLET (FP) PO SCH (09:51)
[2018-03-11] MEDS: CLOPIDOGREL BISULFATE 75 MG TABLET (FP) PO SCH (09:51)
[2018-03-11] MEDS: ALLOPURINOL 100 MG TABLET (FP) PO SCH (09:52)
[2018-03-11] MEDS: CHOLECALCIFEROL (VITAMIN D3) 1,000 UNIT TABLET (FP) PO SCH (09:56)
[2018-03-11] MEDS: FINASTERIDE 5 MG TABLET (FP) PO SCH (10:15)
--- NOTE | 2018-03-11 10:17 | EKG ---
Test Reason : Blood Pressure : / mmHG Vent. Rate : 090 BPM Atrial Rate : 090 BPM P-R Int : 226 ms QRS Dur : 132 ms QT Int : 424 ms P-R-T Axes : 063 000 096 degrees QTc Int : 518 ms SINUS RHYTHM WITH 1ST DEGREE A-V BLOCK WITH FREQUENT PREMATURE VENTRICULAR COMPLEXES LEFT BUNDLE BRANCH BLOCK ABNORMAL ECG WHEN COMPARED WITH ECG OF 10-MAR-2018 12:48, [place] INTERVAL HAS INCREASED Confirmed by ADA DYER, EMMY ([id number]) on 03/11/2018 10:17:02 AM Referred By: SAUMYA GROSS DR Confirmed By:EMMY CABALLERO MD
--- NOTE | 2018-03-11 10:31 | PN ---
Progress Note, Physician History of Present Illness: Pt's breathing a little better. Pt w/o CP, palpitations, abd pain, N, V. Pt with no UO. Pt had Holt cath placed last night but has removed as pt didn't tolerate it. Pt revealed new cardiac Hx (coronary distal LAD stenosis, prior low EF, AICD placement, PAF on AC) Pt's ICU nurse at beside. Pt was seen and examined in ICU - Current Medication List Current Medications: Active Medications Allopurinol (Zyloprim -) 100 mg PO DAILY [facility] Last Admin: 03/11/18 09:52 Dose: 100 mg Cholecalciferol (Vitamin D3 -) 2,000 unit PO DAILY [facility] Last Admin: 03/11/18 09:56 Dose: 2,000 unit Clopidogrel Bisulfate (Plavix -) 75 mg PO DAILY [facility] Last Admin: 03/11/18 09:51 Dose: 75 mg Escitalopram Oxalate (Lexapro -) 10 mg PO DAILY [facility] Last Admin: 03/11/18 09:51 Dose: 10 mg Finasteride (Proscar -) 5 mg PO DAILY [facility] Last Admin: 03/11/18 10:15 Dose: Not Given Furosemide 100 mg/ Sodium (Chloride) 100 mls @ 5 mls/hr IVPB ASDIR [facility]; Protocol Last Admin: 03/10/18 15:50 Dose: 5 mg/hr, 5 mls/hr Insulin Aspart (Novolog Vial Sliding Scale -) 1 vial SQ ACHS [facility]; Protocol Last Admin: 03/11/18 06:36 Dose: Not Given Rosuvastatin Calcium (Crestor -) 10 mg PO HS [facility] Tamsulosin HCl (Flomax -) 0.4 mg PO BID [facility] - Objective Vital Signs: Vital Signs Temperature 98.4 F 03/11/18 06:10 Pulse Rate 94 H 03/11/18 08:00 Respiratory Rate 21 03/11/18 08:00 Blood Pressure 111/70 03/11/18 08:00 O2 Sat by Pulse Oximetry (%) 95 03/11/18 08:50 Constitutional: Yes: No Distress, Calm Cardiovascular: Yes: Regular Rate and Rhythm, S1, S2 Respiratory: Yes: Regular, Other (crackles at both bases, L > R) Gastrointestinal: Yes: Normal Bowel Sounds, Soft. No: Tenderness Edema: Yes Edema: LLE: Trace, RLE: Trace Neurological: Yes: Alert, Oriented, Other (motor and sensory symmetric in extremities) Labs: CBC, BMP 03/11/18 05:30 03/11/18 05:30 Problem List - Problems (1) Acute systolic CHF (congestive heart failure) Code(s): I50.21 - ACUTE SYSTOLIC (CONGESTIVE) HEART FAILURE (2) Elevated troponin I level Code(s): R74.8 - ABNORMAL LEVELS OF OTHER SERUM ENZYMES (3) Hypotension Code(s): I95.9 - HYPOTENSION, UNSPECIFIED (4) PACO (acute kidney injury) Code(s): N17.9 - ACUTE KIDNEY FAILURE, UNSPECIFIED (5) CRF (chronic renal failure) Code(s): N18.9 - CHRONIC KIDNEY DISEASE, UNSPECIFIED (6) Hypercholesteremia Code(s): E78.00 - PURE HYPERCHOLESTEROLEMIA, UNSPECIFIED (7) Hypertension Code(s): I10 - ESSENTIAL (PRIMARY) HYPERTENSION (8) Pleural effusion Code(s): J90 - PLEURAL EFFUSION, NOT ELSEWHERE CLASSIFIED (9) CAD (coronary artery disease) Assessment/Plan: per pt with 100 % stenosis of distal LAD - needs clarification Code(s): I25.10 - ATHSCL HEART DISEASE OF [place] CORONARY ARTERY W/O ANG PCTRS (10) AICD (automatic cardioverter/defibrillator) present Code(s): Z95.810 - PRESENCE OF AUTOMATIC (IMPLANTABLE) CARDIAC DEFIBRILLATOR (11) PAF (paroxysmal atrial fibrillation) Assessment/Plan: on Xarelto Code(s): I48.0 - PAROXYSMAL ATRIAL FIBRILLATION Assessment/Plan Admit ot monitor bed, ICU. Serial CE -stable. slightly elevated Cardio, Renal consults are appreciated Lasix IV drip Home med on hold: Losartan, Spironolactone, Torsemide, Metformin. BGM with Novolog coverage. Restart Metoprolol, low dose as BP allows it. Significance of UR was d/w pt, the need of bladder drainage was reviewed with pt , options were reviewed (Holt vs around the clock bladder catheterization per bladder scan); risks associated with repeated bladder cath were reviewed with pt ; pt is adamant about not allowing Holt placement and agrees with bladder cath. To increase Flomax. consult. AM labs. Pt's nurse at bedside all the time. Time for managing pt's care: over 40 minutes.
--- NOTE | 2018-03-11 11:03 | PN ---
Progress Note (short form) - Note Progress Note: s: no cp palps dizzy; sob a little better o: Vital Signs Period Temp Pulse Resp BP Sys/Eisenberg Pulse Ox Last 24 Hr 97.3 F-98.6 F 66-105 16-254 84-119/54-73 95-100 Constitutional: Yes: Well Nourished, No Distress, Calm Eyes: Yes: Conjunctiva Clear Neck: Yes: Supple, Trachea Midline Respiratory: Yes: Regular, On Nasal O2, Orthopnea, Rales (bilateral) Gastrointestinal: Yes: Normal Bowel Sounds, Soft Cardiovascular: Yes: Regular Rate and Rhythm JVD: Yes Heart Sounds: Yes: S1, S2 Edema: Yes Edema: no Psychiatric: Yes: Alert, Oriented no jaundice diaphoresis Current Medications Generic Name Dose Route Start Last Admin Trade Name Ikerq PRN Reason Stop Dose Admin Allopurinol 100 mg 03/11/18 10:00 03/11/18 09:52 Zyloprim - PO 100 mg DAILY ABI Administration Cholecalciferol 2,000 unit 03/11/18 10:00 03/11/18 09:56 Vitamin D3 - PO 2,000 unit DAILY ABI Administration Clopidogrel Bisulfate 75 mg 03/11/18 10:00 03/11/18 09:51 Plavix - PO 75 mg DAILY ABI Administration Escitalopram Oxalate 10 mg 03/11/18 10:00 03/11/18 09:51 Lexapro - PO 10 mg DAILY ABI Administration Finasteride 5 mg 03/11/18 10:00 03/11/18 10:15 Proscar - PO Not Given DAILY ABI Furosemide 100 mg/ Sodium 100 mls @ 5 mls/hr 03/10/18 14:45 03/10/18 15:50 Chloride IVPB 5 mg/hr ASDIR ABI 5 mls/hr Administration Protocol 5 MG/HR Insulin Aspart 1 vial 03/11/18 07:00 03/11/18 06:36 Novolog Vial Sliding Scale - SQ Not Given ACHS [facility] Protocol Rosuvastatin Calcium 10 mg 03/11/18 22:00 Crestor - PO HS ABI Tamsulosin HCl 0.4 mg 03/11/18 22:00 Flomax - PO BID@0830,2200 ABI CBC, BMP 03/11/18 05:30 03/11/18 05:30 Assessment/Plan 77M h/o HTN, HLD, DM, chronic systolic HF p/w shortness of breath for two weeks acute on chronic systolic HF - symptoms concerning for CHF exacerbation, BNP 8000 - at home was on torsemide 80 mg BID, did not have much uop to 40mg dose per patient report - continue bb as tolerated, hold losartan and spironolactone in setting of PACO - cont iv lasix pos troponin -borderline trop elevation with flat trend and nl ck, not c/w acs PACO - may be cardiorenal - Cr 1.4 in clinic 12/2017 - appreciate nephrology recs HTN - low BP as above HLD - cont statin DM - manage per primary
--- NOTE | 2018-03-11 12:48 | PN ---
Teaching Attending Note Name of Resident: Urbano Bates ATTENDING PHYSICIAN STATEMENT I saw and evaluated the patient. I reviewed the resident's note and discussed the case with the resident. I agree with the resident's findings and plan as documented. SUBJECTIVE: Pt seen and examined in the ICU. Still with shortness of breath. No chest pain. On lasix gtt, reports bloody clots with urination. Post void residual 600mL. Reluctant to have curtis placed. OBJECTIVE: Vital Signs Period Temp Pulse Resp BP Sys/Eisenberg Pulse Ox Last 24 Hr 97.3 F-98.6 F 66-105 16-254 84-119/54-73 95-100 Intake & Output 03/08/18 03/09/18 03/10/18 03/11/18 23:59 23:59 23:59 23:59 Intake Total 145 Output Total 875 750 Balance -875 -605 Weight 85.7 kg Gen: mildly tachypneic at rest Heart: RRR Lung: bibasilar rales R>L Abd: soft, nontender Ext: no edema CBC, BMP 03/11/18 05:30 03/11/18 05:30 Active Medications Allopurinol (Zyloprim -) 100 mg PO DAILY [facility] Last Admin: 03/11/18 09:52 Dose: 100 mg Cholecalciferol (Vitamin D3 -) 2,000 unit PO DAILY [facility] Last Admin: 03/11/18 09:56 Dose: 2,000 unit Clopidogrel Bisulfate (Plavix -) 75 mg PO DAILY [facility] Last Admin: 03/11/18 09:51 Dose: 75 mg Escitalopram Oxalate (Lexapro -) 10 mg PO DAILY [facility] Last Admin: 03/11/18 09:51 Dose: 10 mg Finasteride (Proscar -) 5 mg PO DAILY [facility] Last Admin: 03/11/18 10:15 Dose: Not Given Furosemide 100 mg/ Sodium (Chloride) 100 mls @ 5 mls/hr IVPB ASDIR [facility]; Protocol Last Admin: 03/10/18 15:50 Dose: 5 mg/hr, 5 mls/hr Insulin Aspart (Novolog Vial Sliding Scale -) 1 vial SQ ACHS [facility]; Protocol Last Admin: 03/11/18 06:36 Dose: Not Given Metoprolol Tartrate (Lopressor -) 25 mg PO BID [facility] Rivaroxaban (Xarelto -) 15 mg PO DAILY [facility] Rosuvastatin Calcium (Crestor -) 10 mg PO HS [facility] Tamsulosin HCl (Flomax -) 0.4 mg PO BID@0830,2200 [facility] ASSESSMENT AND PLAN: Acute on Chronic Systolic Heart Failure Atrial Fibrillation CAD +Troponins likely Demand Ischemia Acute on Chronic Renal Failure HTN DM Hyperlipidemia Hematuria - continue lasix - monitor urine output, creatinine - place curtis if pt allows - daily weights - rate controlled - hold anticoagulation for hematuria - place curtis if pt allows - O2 to keep SpO2 >90% - can monitor on telemetry
[2018-03-11] MEDS: RIVAROXABAN 15 MG TABLET PO SCH (12:52)
--- NOTE | 2018-03-11 13:21 | PN ---
Progress Note (short form) - Note Progress Note: patient in ICU with exacerbation of CHF. attempted curtis placement last night was unsuccessful and followed by hematuria. He is on anticoagulation. patient was voiding this morning blood tinged urine. repeat bladder scan, if high PVR with re-attempt curtis
--- NOTE | 2018-03-11 13:31 | PN ---
Progress Note (short form) - Note Progress Note: Renal follow up for PACO Pt seen and examined in the ICU awake and alert sob mildly improved has gross hematuria s/p curtis attempt yesterday no cp, abd pain, N/V/D Vital Signs Temperature 97.3 F L 03/11/18 10:00 Pulse Rate 105 H 03/11/18 10:00 Respiratory Rate 32 H 03/11/18 10:00 Blood Pressure 102/72 03/11/18 10:00 O2 Sat by Pulse Oximetry (%) 95 03/11/18 08:50 Intake & Output 03/08/18 03/09/18 03/10/18 03/11/18 23:59 23:59 23:59 23:59 Intake Total 145 Output Total 875 750 Balance -875 -605 Weight 85.7 kg NAD awake and alert RRR, No M/R + rales right lung base soft NT/ND no Le edema CBC, BMP 03/11/18 05:30 03/11/18 05:30 Current Medications Allopurinol (Zyloprim -) 100 mg PO DAILY [facility] Last Admin: 03/11/18 09:52 Dose: 100 mg Cholecalciferol (Vitamin D3 -) 2,000 unit PO DAILY [facility] Last Admin: 03/11/18 09:56 Dose: 2,000 unit Clopidogrel Bisulfate (Plavix -) 75 mg PO DAILY [facility] Last Admin: 03/11/18 09:51 Dose: 75 mg Escitalopram Oxalate (Lexapro -) 10 mg PO DAILY [facility] Last Admin: 03/11/18 09:51 Dose: 10 mg Finasteride (Proscar -) 5 mg PO DAILY [facility] Last Admin: 03/11/18 10:15 Dose: Not Given Furosemide 100 mg/ Sodium (Chloride) 100 mls @ 5 mls/hr IVPB ASDIR [facility]; Protocol Last Admin: 03/10/18 15:50 Dose: 5 mg/hr, 5 mls/hr Insulin Aspart (Novolog Vial Sliding Scale -) 1 vial SQ ACHS [facility]; Protocol Last Admin: 03/11/18 12:56 Dose: Not Given Metoprolol Tartrate (Lopressor -) 25 mg PO BID [facility] Rivaroxaban (Xarelto -) 15 mg PO DAILY [facility] Last Admin: 03/11/18 12:52 Dose: 15 mg Rosuvastatin Calcium (Crestor -) 10 mg PO [facility] Tamsulosin HCl (Flomax -) 0.4 mg PO BID@0830,2200 [facility] 78 year old gentleman with Hx of CHF, Hypertension, HLD, DM who presented with SOB and admitted for CHF exacerbation with PACO. #PACO on ? 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 obstruction/urinary retention #CHF Exacerbation #BPH with ? retention #Gross hematuria following catheter placement Renal function stable thus far Cr was 2.6 as outpatient and was reason that diuretics where titrated down Continue Lasix gtt for mangement of CHF trend renal function and electrolytes Check Kidney and Bladder US Urology follow up for hematuria and BPH, may need CBI Continue flomax and Proscar Thank you Will follow Efrain Casey DO 78M with a PMH of CHF (EF 39.9%), HTN, HLD, and DM who presents to the ER with worsening SOB.
--- NOTE | 2018-03-11 16:25 | PN ---
Physical Exam: SUBJECTIVE: Patient seen and examined. Pt. endorses being unable to pass urine since he was straight-cathed last night. Holt was not placed. Pt. does endorse shortness of breath and difficulty sleeping and lying flat d/t orthopnea. OBJECTIVE: Vital Signs Period Temp Pulse Resp BP Sys/Eisenberg Pulse Ox Last 24 Hr 97.3 F-98.6 F 66-105 16-254 84-119/54-79 95-100 GENERAL: The patient is awake, alert, and fully oriented, in respiratory distress. ENT: Moist mucous membranes. NECK: Trachea midline, supple, No JVD. LUNGS: crackles and congestion bilaterally in middle to lower lobes, no accessory muscle use, no CVA tenderness HEART: Regular rate and rhythm, nml S1, S2 without murmur ABDOMEN: distended, firm, BS+, dull to percussion from just above umbilicus to suprapubic bone, non-tender, however there is a "pressure" felt on palpation EXTREMITIES: no calf tenderness, warm, well-perfused, no edema, 2< capillary refill PSYCH: Normal mood, normal affect. SKIN: Warm, dry, normal turgor Laboratory Results - last 24 hr 03/10/18 03/10/18 03/10/18 17:20 22:27 23:15 WBC RBC Hgb Hct MCV MCH MCHC RDW Plt Count MPV Absolute Neuts (auto) Neutrophils % Lymphocytes % Monocytes % Eosinophils % Basophils % Nucleated RBC % Sodium Potassium Chloride Carbon Dioxide Anion Gap BUN Creatinine Creat Clearance w eGFR POC Glucometer 131.65580 Random Glucose Calcium Total Bilirubin AST ALT Alkaline Phosphatase Troponin I 0.16 H 0.21 H D Total Protein Albumin 03/11/18 03/11/18 03/11/18 05:30 05:30 05:30 WBC 11.8 H RBC 4.42 Hgb 12.6 Hct 38.6 MCV 87.4 MCH 28.4 MCHC 32.5 RDW 16.6 H Plt Count 289 MPV 8.0 Absolute Neuts (auto) 8.9 H Neutrophils % 75.8 Lymphocytes % 12.7 D Monocytes % 9.8 Eosinophils % 1.1 D Basophils % 0.6 Nucleated RBC % 0 Sodium 140 Potassium 4.5 Chloride 103 Carbon Dioxide 26 Anion Gap 11 BUN 57 H Creatinine 2.2 H Creat Clearance w eGFR 29.25 POC Glucometer Random Glucose 121 H Calcium 9.1 Total Bilirubin 0.5 AST 14 L ALT 15 Alkaline Phosphatase 41 L Troponin I 0.21 H Cancelled Total Protein 7.2 Albumin 3.8 03/11/18 03/11/18 06:21 12:46 WBC RBC Hgb Hct MCV MCH MCHC RDW Plt Count MPV Absolute Neuts (auto) Neutrophils % Lymphocytes % Monocytes % Eosinophils % Basophils % Nucleated RBC % Sodium Potassium Chloride Carbon Dioxide Anion Gap BUN Creatinine Creat Clearance w eGFR POC Glucometer 135.04574 133.88246 Random Glucose Calcium Total Bilirubin AST ALT Alkaline Phosphatase Troponin I Total Protein Albumin Active Medications Current Medications Allopurinol (Zyloprim -) 100 mg PO DAILY [facility] Last Admin: 03/11/18 09:52 Dose: 100 mg Cholecalciferol (Vitamin D3 -) 2,000 unit PO DAILY [facility] Last Admin: 03/11/18 09:56 Dose: 2,000 unit Clopidogrel Bisulfate (Plavix -) 75 mg PO DAILY [facility] Last Admin: 03/11/18 09:51 Dose: 75 mg Escitalopram Oxalate (Lexapro -) 10 mg PO DAILY [facility] Last Admin: 03/11/18 09:51 Dose: 10 mg Finasteride (Proscar -) 5 mg PO DAILY [facility] Last Admin: 03/11/18 10:15 Dose: Not Given Furosemide 100 mg/ Sodium (Chloride) 100 mls @ 5 mls/hr IVPB ASDIR [facility]; Protocol Last Admin: 03/10/18 15:50 Dose: 5 mg/hr, 5 mls/hr Insulin Aspart (Novolog Vial Sliding Scale -) 1 vial SQ ACHS [facility]; Protocol Last Admin: 03/11/18 12:56 Dose: Not Given Metoprolol Tartrate (Lopressor -) 25 mg PO BID [facility] Midazolam HCl (Versed -) 2 mg IVPUSH ONCE ONE Stop: 03/11/18 17:01 Morphine Sulfate (Morphine Sulfate) 1 mg IVPUSH ONCE ONE Stop: 03/11/18 17:01 Rivaroxaban (Xarelto -) 15 mg PO DAILY [facility] Last Admin: 03/11/18 12:52 Dose: 15 mg Rosuvastatin Calcium (Crestor -) 10 mg PO HS [facility] Tamsulosin HCl (Flomax -) 0.4 mg PO BID@0830,2200 [facility] ASSESSMENT/PLAN: The patient is a 78 year old with a PMH of CHF, CAD, s/p stent in 2017, CKD, HLD , pre diabetes, who presents to the hospital with worsening SOB x 3 days. He is admitted for CHF exacerbation and hypotension. #Cardiovascular -hold BP medications as BP has been low since admission -strict I&O, daily weights -monitor BP, baseline systolic 115-120, today in 80s -troponins trended- peaked at 0.21, no new ekg changes, no ST elevations or depressions -c/w Crestor for HLD -c/w IV Lasix 100mg drip@ 5ml/hr #Pulmonology -c/w IV Lasix 100mg drip@ 5ml/hr #Renal -c/w IV Lasix 100mg drip@ 5ml/hr -bladder scan show 700 ml urinary retention -Pt. to be seen by urology for Holt placement this evening -hold nephrotoxic substances; Losartan, Metformin -c/w Finasteride and Tamsulosin for BPH #Endocrinology -c/w insulin sliding scale #DVT PPx. -holding xarelto d/t hematuria -starting SCDs #Dispo -transfer to med/surg when Holt is placed Visit type - Emergency Visit Emergency Visit: Yes ED Registration Date: 03/10/18 Care time: The patient presented to the Emergency Department on the above date and was hospitalized for further evaluation of their emergent condition. - New Patient This patient is new to me today: Yes Date on this admission: 03/11/18 - Critical Care Critical Care patient: No - Discharge Referral Referred to [facility] Med [facility] No
[2018-03-11] MEDS ORDERED: MIDAZOLAM HCL 2 MG/2 ML SINGLE DOSE VIAL IVPUSH ONE (17:00)
[2018-03-11] MEDS ORDERED: MORPHINE SULFATE 2 MG/ML VIAL IVPUSH ONE (17:00)
[2018-03-11] MEDS: FUROSEMIDE INJECTION 100 MG in SODIUM CHLORIDE 90 ML IVPB SCH (17:14)
--- NOTE | 2018-03-11 18:50 | PN ---
Progress Note (short form) - Note Progress Note: Holt placed by uro. currently with hematuria Pt received versed, feeling drowsy HR 91, no longer tachy 98/72 (MAP 81) 92 02 sat will continue to follow thank you
[2018-03-11] MEDS: ROSUVASTATIN CA 10 MG TABLET (FP) PO SCH (22:00)
[2018-03-11] MEDS ORDERED: TAMSULOSIN HCL 0.4 MG CAP PO SCH (22:00)
[2018-03-11] MEDS ORDERED: morphine SULFATE 4 MG/ML VIAL ONE (22:30)
[2018-03-11] MEDS: METOPROLOL TARTRATE 25 MG TABLET (FP) PO SCH (22:40)
[2018-03-11] MEDS: TAMSULOSIN HCL 0.4 MG CAP PO SCH (22:40)
[2018-03-12] MEDS: INSULIN SLIDING SCALE (NOVOLOG) 1 VIAL SQ SCH ×4 (06:18→22:13)
[2018-03-12 06:49] LABS: HEMATOCRIT 36.8 % (35.4-49); HEMOGLOBIN 11.8 GM/dL (11.7-16.9); MCH 28.1 pg (25.7-33.7); MEAN PLT VOLUME 7.9 fl (7.5-11.1); PLATELET COUNT 231 K/MM3 (134-434); RBC 4.18 M/mm3 (4.00-5.60); RDW 17.2 % (11.9-15.9); WHITE BLOOD COUNT 9.7 K/mm3 (4.0-10.0)
[2018-03-12 07:09] LABS: ANION GAP 8 MMOL/L (8-16); BLOOD UREA NITROGEN 58 mg/dL (7-18); CALCIUM 8.7 mg/dL (8.5-10.1); CHLORIDE 103 mmol/L (98-107); CO2 27 mmol/L (21-32); GLUCOSE,RANDOM 120 mg/dL (74-106); MAGNESIUM 2.4 mg/dL (1.8-2.4); PHOSPHOROUS 4.5 mg/dL (2.5-4.9); POTASSIUM 4.6 mmol/L (3.5-5.1); SODIUM 138 mmol/L (136-145)
[2018-03-12] MEDS ORDERED: PT OWN MED DRAWER 7, Y5N ONE ×2 (08:31→21:24)
[2018-03-12] MEDS: CLOPIDOGREL BISULFATE 75 MG TABLET (FP) PO SCH (09:00)
[2018-03-12] MEDS: TAMSULOSIN HCL 0.4 MG CAP PO SCH ×2 (09:00→21:30)
[2018-03-12] MEDS: ESCITALOPRAM OXALATE 10 MG TABLET (FP) PO SCH (09:00)
[2018-03-12] MEDS: CHOLECALCIFEROL (VITAMIN D3) 1,000 UNIT TABLET (FP) PO SCH (09:01)
[2018-03-12] MEDS: ALLOPURINOL 100 MG TABLET (FP) PO SCH (09:01)
[2018-03-12] MEDS: METOPROLOL TARTRATE 25 MG TABLET (FP) PO SCH ×2 (09:06→21:30)
--- NOTE | 2018-03-12 09:59 | PN ---
Progress Note (short form) - Note Progress Note: s: no cp palps dizzy; sob improving o: Vital Signs Period Temp Pulse Resp BP Sys/Eisenberg Pulse Ox Last 24 Hr 97.3 F-98.5 F 91-122 20-32 95-120/56-94 94-96 Constitutional: Yes: Well Nourished, No Distress, Calm Eyes: Yes: Conjunctiva Clear Neck: Yes: Supple, Trachea Midline Respiratory: Yes: Regular, On Nasal O2, Orthopnea, Rales (bilateral) Gastrointestinal: Yes: Normal Bowel Sounds, Soft Cardiovascular: Yes: Regular Rate and Rhythm JVD: Yes Heart Sounds: Yes: S1, S2 Edema: Yes Edema: no Psychiatric: Yes: Alert, Oriented no jaundice diaphoresis Current Medications Allopurinol (Zyloprim -) 100 mg PO DAILY [facility] Last Admin: 03/12/18 09:01 Dose: 100 mg Cholecalciferol (Vitamin D3 -) 2,000 unit PO DAILY [facility] Last Admin: 03/12/18 09:01 Dose: 2,000 unit Clopidogrel Bisulfate (Plavix -) 75 mg PO DAILY [facility] Last Admin: 03/12/18 09:00 Dose: 75 mg Escitalopram Oxalate (Lexapro -) 10 mg PO DAILY [facility] Last Admin: 03/12/18 09:00 Dose: 10 mg Finasteride (Proscar -) 5 mg PO DAILY [facility] Last Admin: 03/11/18 10:15 Dose: Not Given Furosemide 100 mg/ Sodium (Chloride) 100 mls @ 5 mls/hr IVPB ASDIR [facility]; Protocol Last Admin: 03/11/18 17:14 Dose: 5 mg/hr, 5 mls/hr Insulin Aspart (Novolog Vial Sliding Scale -) 1 vial SQ ACHS [facility]; Protocol Last Admin: 03/12/18 06:18 Dose: Not Given Metoprolol Tartrate (Lopressor -) 25 mg PO BID [facility] Last Admin: 03/12/18 09:06 Dose: 25 mg Rivaroxaban (Xarelto -) 15 mg PO DAILY [facility] Last Admin: 03/11/18 12:52 Dose: 15 mg Rosuvastatin Calcium (Crestor -) 10 mg PO HS [facility] Last Admin: 03/11/18 22:00 Dose: 10 mg Tamsulosin HCl (Flomax -) 0.4 mg PO BID@0830,2200 [facility] Last Admin: 03/12/18 09:00 Dose: 0.4 mg Assessment/Plan echo with definity 07/2017 dilated LV, EF20-25%, with apical AK, HK of inf and lat [place], grade II diastolic dysfunction, cath 04/2017 MLM 80-90% with severe calc, 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 EF 15% dyskinetic apex, s/p LM PCI 77M h/o HTN, HLD, DM, chronic systolic HF p/w shortness of breath for two weeks acute on chronic systolic HF s/p ICD - symptoms concerning for CHF exacerbation, BNP 8000 - at home was on torsemide 80 mg BID, did not have much uop to 40mg dose per patient report - continue bb as tolerated, hold losartan and spironolactone in setting of PACO - cont iv lasix gtt, now s/p curtis with improving UOP - monitor Cr, weights, I/O CAD s/p LM stent 04/2017 - cont statin, plavix, metoprolol pos troponin -borderline trop elevation with flat trend and nl ck, not c/w acs afib - cont xarelto PACO - may be cardiorenal, obstructive - curtis placed yesterday, had hematuria, clots, urology consulted, appreciate recs - Cr 1.4 in clinic 12/2017 - appreciate nephrology recs HTN - low BP as above HLD - cont statin DM - manage per primary
[2018-03-12] MEDS: FINASTERIDE 5 MG TABLET (FP) PO SCH (10:47)
[2018-03-12] MEDS ORDERED: DOCUSATE SODIUM 100 MG CAPSULE (FP) PO PRN (11:23)
--- NOTE | 2018-03-12 12:18 | PN ---
Physical Exam: SUBJECTIVE: Patient seen and examined. Pt. was able to sleep last night after Holt placement. Pt. endorses improving SOB. Pt. endorses feeling thirsty. Pt. denies any CP, nausea, vomiting. fever or chills. Pt. has a wet sounding cough. OBJECTIVE: Vital Signs Period Temp Pulse Resp BP Sys/Eisenberg Pulse Ox Last 24 Hr 98.4 F-98.5 F 91-122 20-28 95-120/56-94 94-96 GENERAL: The patient is sleeping comfortably in no acute distress. ENT: moist mucous membranes. LUNGS: decreased breath sounds b/l, expiratory sound-not wheezing, fine diffuse crackles, no accessory muscle use. HEART: Regular rate and rhythm, S1, S2 without murmur ABDOMEN: Soft, nontender, nondistended, normoactive bowel sounds, no guarding EXTREMITIES: 2+ pulses, warm, well-perfused, no edema. NEUROLOGICAL: Normal speech, gait not observed. PSYCH: Normal mood, normal affect. SKIN: Warm, dry, normal turgor Laboratory Results - last 24 hr 03/11/18 03/11/18 03/11/18 12:46 17:20 22:48 WBC RBC Hgb Hct MCV MCH MCHC RDW Plt Count MPV Sodium Potassium Chloride Carbon Dioxide Anion Gap BUN Creatinine Creat Clearance w eGFR POC Glucometer 133.74666 141.62017 137.37209 Random Glucose Calcium Phosphorus Magnesium Creatine Kinase Troponin I 03/12/18 03/12/18 03/12/18 05:45 05:45 05:45 WBC 9.7 RBC 4.18 Hgb 11.8 Hct 36.8 MCV 88.0 MCH 28.1 MCHC 32.0 RDW 17.2 H Plt Count 231 D MPV 7.9 Sodium 138 Potassium 4.6 Chloride 103 Carbon Dioxide 27 Anion Gap 8 BUN 58 H Creatinine 2.0 H Creat Clearance w eGFR 32.65 POC Glucometer Random Glucose 120 H Calcium 8.7 Phosphorus 4.5 Magnesium 2.4 Creatine Kinase 55 Troponin I 0.16 H 03/12/18 06:10 WBC RBC Hgb Hct MCV MCH MCHC RDW Plt Count MPV Sodium Potassium Chloride Carbon Dioxide Anion Gap BUN Creatinine Creat Clearance w eGFR POC Glucometer 129.09196 Random Glucose Calcium Phosphorus Magnesium Creatine Kinase Troponin I Active Medications Current Medications Allopurinol (Zyloprim -) 100 mg PO DAILY [facility] Last Admin: 03/12/18 09:01 Dose: 100 mg Cholecalciferol (Vitamin D3 -) 2,000 unit PO DAILY [facility] Last Admin: 03/12/18 09:01 Dose: 2,000 unit Clopidogrel Bisulfate (Plavix -) 75 mg PO DAILY [facility] Last Admin: 03/12/18 09:00 Dose: 75 mg Docusate Sodium (Colace -) 100 mg PO Q8H PRN PRN Reason: CONSTIPATION Escitalopram Oxalate (Lexapro -) 10 mg PO DAILY [facility] Last Admin: 03/12/18 09:00 Dose: 10 mg Finasteride (Proscar -) 5 mg PO DAILY [facility] Last Admin: 03/12/18 10:47 Dose: 5 mg Furosemide 100 mg/ Sodium (Chloride) 100 mls @ 5 mls/hr IVPB ASDIR [facility]; Protocol Last Admin: 03/11/18 17:14 Dose: 5 mg/hr, 5 mls/hr Insulin Aspart (Novolog Vial Sliding Scale -) 1 vial SQ ACHS [facility]; Protocol Last Admin: 03/12/18 06:18 Dose: Not Given Metoprolol Tartrate (Lopressor -) 25 mg PO BID [facility] Last Admin: 03/12/18 09:06 Dose: 25 mg Rivaroxaban (Xarelto -) 15 mg PO DAILY [facility] Last Admin: 03/11/18 12:52 Dose: 15 mg Rosuvastatin Calcium (Crestor -) 10 mg PO HS [facility] Last Admin: 03/11/18 22:00 Dose: 10 mg Tamsulosin HCl (Flomax -) 0.4 mg PO BID@0830,2200 [facility] Last Admin: 03/12/18 09:00 Dose: 0.4 mg ASSESSMENT/PLAN: The patient is a 78 year old with a PMH of CHF, CAD, s/p stent in 2017, CKD, HLD , pre diabetes, who presents to the hospital with worsening SOB x 3 days. He is admitted for CHF exacerbation and hypotension. #Cardiovascular -hold BP medications as BP has been low since admission -strict I&O, daily weights -monitor BP, baseline systolic 115-120 -troponins trended- peaked at 0.21, no new ekg changes, no ST elevations or depressions -c/w Crestor for HLD -c/w IV Lasix 100mg drip@ 5ml/hr #Pulmonology -c/w IV Lasix 100mg drip@ 5ml/hr -CXR(03/12/18) shows worsening progressive pulmonary and pleural changes #Renal -c/w IV Lasix 100mg drip@ 5ml/hr -bladder scan showed 700 ml urinary retention -Holt placed 03/11/18- draining red colored urine -hold nephrotoxic substances; Losartan, Metformin -c/w Finasteride and Tamsulosin for BPH -Renal/Bladder US appreciated shows no evidence of hydronephrosis, prostate volume of 29.7 ml(normal), mildly atrophic kidneys #Endocrinology -c/w insulin sliding scale #DVT PPx. -holding xarelto d/t hematuria -c/w SCDs -c/w Plavix #Dispo -ICU Visit type - Emergency Visit Emergency Visit: Yes ED Registration Date: 03/10/18 Care time: The patient presented to the Emergency Department on the above date and was hospitalized for further evaluation of their emergent condition. - New Patient This patient is new to me today: No - Critical Care Critical Care patient: No - Discharge Referral Referred to [facility] Med P.C.: No
--- NOTE | 2018-03-12 12:18 | PN ---
Teaching Attending Note Name of Resident: Urbano Bates ATTENDING PHYSICIAN STATEMENT I saw and evaluated the patient. I reviewed the resident's note and discussed the case with the resident. I agree with the resident's findings and plan as documented. SUBJECTIVE: Pt seen and examined in the ICU. Holt inserted by urology yesterday. Still with hematuria. States breathing is improvin. OBJECTIVE: Vital Signs Period Temp Pulse Resp BP Sys/Eisenberg Pulse Ox Last 24 Hr 98.4 F-98.5 F 91-122 20-28 95-120/56-94 94-96 Intake & Output 03/09/18 03/10/18 03/11/18 03/12/18 23:59 23:59 23:59 23:59 Intake Total 245 Output Total 875 5130 800 Balance -875 -1303 -800 Weight 85.7 kg 84.4 kg Gen: less tachypneic Heart: irregular Lung: scattered rhonchi Abd: soft, nontender Ext: no edema CBC, BMP 03/12/18 05:45 03/12/18 05:45 Active Medications Allopurinol (Zyloprim -) 100 mg PO DAILY [facility] Last Admin: 03/12/18 09:01 Dose: 100 mg Cholecalciferol (Vitamin D3 -) 2,000 unit PO DAILY [facility] Last Admin: 03/12/18 09:01 Dose: 2,000 unit Clopidogrel Bisulfate (Plavix -) 75 mg PO DAILY [facility] Last Admin: 03/12/18 09:00 Dose: 75 mg Docusate Sodium (Colace -) 100 mg PO Q8H PRN PRN Reason: CONSTIPATION Escitalopram Oxalate (Lexapro -) 10 mg PO DAILY [facility] Last Admin: 03/12/18 09:00 Dose: 10 mg Finasteride (Proscar -) 5 mg PO DAILY [facility] Last Admin: 03/12/18 10:47 Dose: 5 mg Furosemide 100 mg/ Sodium (Chloride) 100 mls @ 5 mls/hr IVPB ASDIR [facility]; Protocol Last Admin: 03/11/18 17:14 Dose: 5 mg/hr, 5 mls/hr Insulin Aspart (Novolog Vial Sliding Scale -) 1 vial SQ ACHS [facility]; Protocol Last Admin: 03/12/18 06:18 Dose: Not Given Metoprolol Tartrate (Lopressor -) 25 mg PO BID [facility] Last Admin: 03/12/18 09:06 Dose: 25 mg Rivaroxaban (Xarelto -) 15 mg PO DAILY [facility] Last Admin: 03/11/18 12:52 Dose: 15 mg Rosuvastatin Calcium (Crestor -) 10 mg PO HS [facility] Last Admin: 03/11/18 22:00 Dose: 10 mg Tamsulosin HCl (Flomax -) 0.4 mg PO BID@0830,2200 [facility] Last Admin: 03/12/18 09:00 Dose: 0.4 mg ASSESSMENT AND PLAN: Acute on Chronic Systolic Heart Failure Atrial Fibrillation CAD +Troponins likely Demand Ischemia Acute on Chronic Renal Failure HTN DM Hyperlipidemia Hematuria - continue lasix - monitor urine output, creatinine - keep net negative - daily weights - rate controlled - hold anticoagulation for hematuria - O2 to keep SpO2 >90% - continue ICU monitoring
[2018-03-12] MEDS ORDERED: INSULIN (NOVOLOG) ASPART 100 UNITS/ML 10ML VIAL ONE (12:37)
--- NOTE | 2018-03-12 15:25 | PN ---
Progress Note (short form) - Note Progress Note: Renal follow up for PACO Pt seen and examined in the ICU sleeping family at the bedside no overnight events curtis in place with hematuria Vital Signs Temperature 96.7 F L 03/12/18 12:00 Pulse Rate 90 03/12/18 12:00 Respiratory Rate 28 H 03/12/18 12:00 Blood Pressure 98/73 03/12/18 12:00 O2 Sat by Pulse Oximetry (%) 96 03/12/18 07:27 Intake & Output 03/09/18 03/10/18 03/11/18 03/12/18 23:59 23:59 23:59 23:59 Intake Total 245 Output Total 875 1550 1550 Balance -875 1305 -1550 Weight 85.7 kg 84.4 kg NAD awake and alert RRR, No M/R + rales right lung base soft NT/ND no Le edema CBC, BMP 03/12/18 05:45 03/12/18 05:45 Intake & Output 03/09/18 03/10/18 03/11/18 03/12/18 23:59 23:59 23:59 23:59 Intake Total 245 Output Total 875 1550 1550 Balance -875 1305 -1550 Weight 85.7 kg 84.4 kg 78 year old gentleman with Hx of CHF, Hypertension, HLD, DM who presented with SOB and admitted for CHF exacerbation with PACO. #PACO on ? 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 obstruction/urinary retention #CHF Exacerbation #BPH with ? retention #Gross hematuria following catheter placement #Renal Cysts Renal function with improvement, cr downtrending US showed no obstruction maintain curtis as per urology continue lasix gtt Continue to monitor urine output, BUN/cr and electrolytes continue flomax/proscar Thank you Will follow Efrain Casey DO
[2018-03-12] MEDS: FUROSEMIDE INJECTION 100 MG in SODIUM CHLORIDE 90 ML IVPB SCH (16:36)
--- NOTE | 2018-03-12 19:06 | PN ---
Progress Note, Physician History of Present Illness: Pt w/o CP, palpitations, abd pain, N, V. Pt is breathing better at night. Pt is tolerating Holt cath. Pt's ICU nurse at beside. Pt was seen and examined in ICU - Current Medication List Current Medications: Active Medications Allopurinol (Zyloprim -) 100 mg PO DAILY [facility] Last Admin: 03/12/18 09:01 Dose: 100 mg Cholecalciferol (Vitamin D3 -) 2,000 unit PO DAILY [facility] Last Admin: 03/12/18 09:01 Dose: 2,000 unit Clopidogrel Bisulfate (Plavix -) 75 mg PO DAILY [facility] Last Admin: 03/12/18 09:00 Dose: 75 mg Docusate Sodium (Colace -) 100 mg PO Q8H PRN PRN Reason: CONSTIPATION Last Admin: 03/12/18 12:41 Dose: 100 mg Escitalopram Oxalate (Lexapro -) 10 mg PO DAILY [facility] Last Admin: 03/12/18 09:00 Dose: 10 mg Finasteride (Proscar -) 5 mg PO DAILY [facility] Last Admin: 03/12/18 10:47 Dose: 5 mg Furosemide 100 mg/ Sodium (Chloride) 100 mls @ 5 mls/hr IVPB ASDIR [facility]; Protocol Last Admin: 03/12/18 16:36 Dose: 5 mg/hr, 5 mls/hr Insulin Aspart (Novolog Vial Sliding Scale -) 1 vial SQ ACHS [facility]; Protocol Last Admin: 03/12/18 17:16 Dose: Not Given Metoprolol Tartrate (Lopressor -) 25 mg PO BID [facility] Last Admin: 03/12/18 09:06 Dose: 25 mg Rivaroxaban (Xarelto -) 15 mg PO DAILY [facility] Last Admin: 03/11/18 12:52 Dose: 15 mg Rosuvastatin Calcium (Crestor -) 10 mg PO HS [facility] Last Admin: 03/11/18 22:00 Dose: 10 mg Tamsulosin HCl (Flomax -) 0.4 mg PO BID@0830,2200 [facility] Last Admin: 03/12/18 09:00 Dose: 0.4 mg - Objective Vital Signs: Vital Signs Temperature 97 F L 03/12/18 18:00 Pulse Rate 96 H 03/12/18 18:00 Respiratory Rate 23 03/12/18 18:00 Blood Pressure 108/76 03/12/18 18:00 O2 Sat by Pulse Oximetry (%) 96 03/12/18 07:27 Constitutional: Yes: No Distress, Other (Pt has Holt, drining red color urine) Cardiovascular: Yes: Regular Rate and Rhythm, S1, S2 Respiratory: Yes: Regular, Other (crackles at bases) Gastrointestinal: Yes: Normal Bowel Sounds, Soft. No: Tenderness Edema: No Neurological: Yes: Alert, Oriented Labs: CBC, BMP 03/12/18 05:45 03/12/18 05:45 - ....Imaging Ultrasound: Report Reviewed Problem List - Problems (1) Acute systolic CHF (congestive heart failure) Code(s): I50.21 - ACUTE SYSTOLIC (CONGESTIVE) HEART FAILURE (2) Elevated troponin I level Code(s): R74.8 - ABNORMAL LEVELS OF OTHER SERUM ENZYMES (3) Hypotension Code(s): I95.9 - HYPOTENSION, UNSPECIFIED (4) PACO (acute kidney injury) Code(s): N17.9 - ACUTE KIDNEY FAILURE, UNSPECIFIED (5) CRF (chronic renal failure) Code(s): N18.9 - CHRONIC KIDNEY DISEASE, UNSPECIFIED (6) Hypercholesteremia Code(s): E78.00 - PURE HYPERCHOLESTEROLEMIA, UNSPECIFIED (7) Hypertension Code(s): I10 - ESSENTIAL (PRIMARY) HYPERTENSION (8) Pleural effusion Code(s): J90 - PLEURAL EFFUSION, NOT ELSEWHERE CLASSIFIED (9) CAD (coronary artery disease) Code(s): I25.10 - ATHSCL HEART DISEASE OF [place] CORONARY ARTERY W/O ANG PCTRS (10) AICD (automatic cardioverter/defibrillator) present Code(s): Z95.810 - PRESENCE OF AUTOMATIC (IMPLANTABLE) CARDIAC DEFIBRILLATOR (11) PAF (paroxysmal atrial fibrillation) Assessment/Plan: pt on Xarelto Code(s): I48.0 - PAROXYSMAL ATRIAL FIBRILLATION (12) Urinary retention Code(s): R33.9 - RETENTION OF URINE, UNSPECIFIED (13) Hematuria Code(s): R31.9 - HEMATURIA, UNSPECIFIED Assessment/Plan Admit to ICU. Serial CE -stable. slightly down ICU/CCM, Cardio, Renal, consults are appreciated Lasix IV drip s/p Holt placement (secondary to UR) Home med on hold: Losartan, Spironolactone, Torsemide, Metformin. BGM with Novolog coverage. Restarted on Metoprolol, low dose, as BP allows it. AM labs. I reviewed with pt his condition and treatment; all questions were answered. Pt's case was d/w pt's ICU nurse Time for managing pt's care: over 40 minutes.
--- NOTE | 2018-03-12 20:54 | PROC ---
Procedure Note Procedure: coude curtis cath placed. bloody return was noted.
[2018-03-12] MEDS: ROSUVASTATIN CA 10 MG TABLET (FP) PO SCH (22:13)
[2018-03-13 06:13] LABS: HEMOGLOBIN 12.1 GM/dL (11.7-16.9); MCH 27.8 pg (25.7-33.7); MCHC 31.9 g/dl (32.0-35.9); MEAN CELL VOLUME 87.1 fl (80-96); PLATELET COUNT 235 K/MM3 (134-434); RBC 4.36 M/mm3 (4.00-5.60); RDW 16.8 % (11.9-15.9); WHITE BLOOD COUNT 11.1 K/mm3 (4.0-10.0)
[2018-03-13 06:44] LABS: ANION GAP 9 MMOL/L (8-16); BLOOD UREA NITROGEN 58 mg/dL (7-18); CHLORIDE 103 mmol/L (98-107); CO2 26 mmol/L (21-32); CREATININE 1.7 mg/dL (0.7-1.3); GLUCOSE,RANDOM 131 mg/dL (74-106); MAGNESIUM 2.6 mg/dL (1.8-2.4); PHOSPHOROUS 3.4 mg/dL (2.5-4.9); POTASSIUM 4.3 mmol/L (3.5-5.1); SODIUM 138 mmol/L (136-145)
[2018-03-13] MEDS: INSULIN SLIDING SCALE (NOVOLOG) 1 VIAL SQ SCH ×4 (07:22→21:59)
[2018-03-13] MEDS ORDERED: METOPROLOL TARTRATE 25 MG TABLET (FP) PO ONE (07:45)
[2018-03-13] MEDS: FUROSEMIDE INJECTION 100 MG in SODIUM CHLORIDE 90 ML IVPB SCH ×2 (07:59→16:25)
[2018-03-13] MEDS: TAMSULOSIN HCL 0.4 MG CAP PO SCH ×2 (08:08→21:50)
[2018-03-13] MEDS ORDERED: PT OWN MED DRAWER 7, Y5N ONE (09:20)
[2018-03-13] MEDS: CHOLECALCIFEROL (VITAMIN D3) 1,000 UNIT TABLET (FP) PO SCH (09:23)
[2018-03-13] MEDS: CLOPIDOGREL BISULFATE 75 MG TABLET (FP) PO SCH (09:23)
[2018-03-13] MEDS: FINASTERIDE 5 MG TABLET (FP) PO SCH (09:23)
[2018-03-13] MEDS: ESCITALOPRAM OXALATE 10 MG TABLET (FP) PO SCH (09:23)
[2018-03-13] MEDS: RIVAROXABAN 15 MG TABLET PO SCH (09:24)
[2018-03-13] MEDS: ALLOPURINOL 100 MG TABLET (FP) PO SCH (09:24)
[2018-03-13] MEDS: METOPROLOL TARTRATE 25 MG TABLET (FP) PO SCH ×2 (09:26→21:50)
--- NOTE | 2018-03-13 09:33 | PN ---
Progress Note (short form) - Note Progress Note: s: no cp palps dizzy; sob improving tele: afib rates 100s-120s o: Vital Signs Period Temp Pulse Resp BP Sys/Eisenberg Pulse Ox Last 24 Hr 96.7 F-98.7 F 84-105 14-28 98-115/72-82 96-96 Constitutional: Yes: Well Nourished, No Distress, Calm Eyes: Yes: Conjunctiva Clear Neck: Yes: Supple, Trachea Midline Respiratory: Yes: Regular, On Nasal O2, Orthopnea, Rales (bilateral) Gastrointestinal: Yes: Normal Bowel Sounds, Soft Cardiovascular: Yes: Regular Rate and Rhythm JVD: Yes Heart Sounds: Yes: S1, S2 Edema: Yes Edema: no Psychiatric: Yes: Alert, Oriented no jaundice diaphoresis Current Medications Allopurinol (Zyloprim -) 100 mg PO DAILY [facility] Last Admin: 03/13/18 09:24 Dose: 100 mg Cholecalciferol (Vitamin D3 -) 2,000 unit PO DAILY [facility] Last Admin: 03/13/18 09:23 Dose: 2,000 unit Clopidogrel Bisulfate (Plavix -) 75 mg PO DAILY [facility] Last Admin: 03/13/18 09:23 Dose: 75 mg Docusate Sodium (Colace -) 100 mg PO Q8H PRN PRN Reason: CONSTIPATION Last Admin: 03/12/18 12:41 Dose: 100 mg Escitalopram Oxalate (Lexapro -) 10 mg PO DAILY [facility] Last Admin: 03/13/18 09:23 Dose: 10 mg Finasteride (Proscar -) 5 mg PO DAILY [facility] Last Admin: 03/13/18 09:23 Dose: 5 mg Furosemide 100 mg/ Sodium (Chloride) 100 mls @ 5 mls/hr IVPB ASDIR [facility]; Protocol Last Admin: 03/13/18 07:59 Dose: 5 mg/hr, 5 mls/hr Insulin Aspart (Novolog Vial Sliding Scale -) 1 vial SQ ACHS [facility]; Protocol Last Admin: 03/13/18 07:22 Dose: Not Given Metoprolol Tartrate (Lopressor -) 25 mg PO BID [facility] Last Admin: 03/13/18 09:26 Dose: Not Given Rivaroxaban (Xarelto -) 15 mg PO DAILY [facility] Last Admin: 03/13/18 09:24 Dose: 15 mg Rosuvastatin Calcium (Crestor -) 10 mg PO HS [facility] Last Admin: 03/12/18 22:13 Dose: 10 mg Tamsulosin HCl (Flomax -) 0.4 mg PO BID@0830,2200 [facility] Last Admin: 03/13/18 08:08 Dose: 0.4 mg Assessment/Plan echo with definity 07/2017 dilated LV, EF20-25%, with apical AK, HK of inf and lat [place], grade II diastolic dysfunction, cath 04/2017 MLM 80-90% with severe calc, pLAD 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 EF 15% dyskinetic apex, s/p LM PCI 77M h/o HTN, HLD, DM, chronic systolic HF p/w shortness of breath for two weeks acute on chronic systolic HF s/p ICD - symptoms concerning for CHF exacerbation, BNP 8000 - at home was on torsemide 80 mg BID, did not have much uop to 40mg dose per patient report - continue bb as tolerated, hold losartan and spironolactone in setting of PACO - cont iv lasix gtt, now s/p curtis with improving UOP, Cr and weight downtrending - monitor Cr, weights, I/O CAD s/p LM stent 04/2017 - cont statin, plavix, metoprolol pos troponin -borderline trop elevation with flat trend and nl ck, not c/w acs afib - restarted on metoprolol 25 mg BID with improved rates, uptitrate as tolerated however has had low BP - cont xarelto PACO - may be cardiorenal, obstructive - improving with diuresis, curtis placement - renal ultrasound, no obstruction - Cr 1.4 in clinic 12/2017 - appreciate nephrology, urology recs HTN - low BP as above HLD - cont statin DM - manage per primary
[2018-03-13] MEDS ORDERED: INSULIN (NOVOLOG) ASPART 100 UNITS/ML 10ML VIAL ONE (12:08)
--- NOTE | 2018-03-13 12:21 | PN ---
Progress Note (short form) - Note Progress Note: Renal follow up for PACO Pt seen and examined in the ICU no overnight events family at the bedside no overnight events curtis in place with hematuria still no abd pain, sob, cp, N/V/D Vital Signs Temperature 97.4 F L 03/13/18 06:00 Pulse Rate 90 03/13/18 11:00 Respiratory Rate 17 03/13/18 11:00 Blood Pressure 98/76 03/13/18 11:00 O2 Sat by Pulse Oximetry (%) 96 03/13/18 07:35 Intake & Output 03/10/18 03/11/18 03/12/18 03/13/18 23:59 23:59 23:59 23:59 Intake Total 245 60 150 Output Total 875 7230 2550 800 Balance -038 -8605 -8280 -650 Weight 85.7 kg 84.368 kg 82.826 kg NAD awake and alert RRR, No M/R + rales right lung base soft NT/ND no Le edema CBC, BMP 03/13/18 05:30 03/13/18 05:30 Current Medications Allopurinol (Zyloprim -) 100 mg PO DAILY [facility] Last Admin: 03/13/18 09:24 Dose: 100 mg Cholecalciferol (Vitamin D3 -) 2,000 unit PO DAILY [facility] Last Admin: 03/13/18 09:23 Dose: 2,000 unit Clopidogrel Bisulfate (Plavix -) 75 mg PO DAILY [facility] Last Admin: 03/13/18 09:23 Dose: 75 mg Docusate Sodium (Colace -) 100 mg PO Q8H PRN PRN Reason: CONSTIPATION Last Admin: 03/12/18 12:41 Dose: 100 mg Escitalopram Oxalate (Lexapro -) 10 mg PO DAILY [facility] Last Admin: 03/13/18 09:23 Dose: 10 mg Finasteride (Proscar -) 5 mg PO DAILY [facility] Last Admin: 03/13/18 09:23 Dose: 5 mg Furosemide 100 mg/ Sodium (Chloride) 100 mls @ 5 mls/hr IVPB ASDIR [facility]; Protocol Last Admin: 03/13/18 07:59 Dose: 5 mg/hr, 5 mls/hr Insulin Aspart (Novolog Vial Sliding Scale -) 1 vial SQ ACHS [facility]; Protocol Last Admin: 03/13/18 12:11 Dose: 2 unit Metoprolol Tartrate (Lopressor -) 25 mg PO BID [facility] Last Admin: 03/13/18 09:26 Dose: Not Given Rivaroxaban (Xarelto -) 15 mg PO DAILY [facility] Last Admin: 03/13/18 09:24 Dose: 15 mg Rosuvastatin Calcium (Crestor -) 10 mg PO HS [facility] Last Admin: 03/12/18 22:13 Dose: 10 mg Tamsulosin HCl (Flomax -) 0.4 mg PO BID@0830,2200 [facility] Last Admin: 03/13/18 08:08 Dose: 0.4 mg 78 year old gentleman with Hx of CHF, Hypertension, HLD, DM who presented with SOB and admitted for CHF exacerbation with PACO. #PACO on ? 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 obstruction/urinary retention #CHF Exacerbation #BPH with ? retention #Gross hematuria following catheter placement #Renal Cysts Renal function with improvement with diuresis and Curtis catheter continue Lasix gtt as per cardiology continue flomax and proscar, maintain Curtis until pt is ambulating and then can attempt trial of void family requests alternative urologist on follow up Trend renal function, daily weights, electrolytes Thank you Will follow Efrain Casey DO
--- NOTE | 2018-03-13 12:36 | PN ---
Teaching Attending Note Name of Resident: Urbano Bates ATTENDING PHYSICIAN STATEMENT I saw and evaluated the patient. I reviewed the resident's note and discussed the case with the resident. I agree with the resident's findings and plan as documented. SUBJECTIVE: Pt seen and examined in the ICU. Breathing better today. Still with hematuria in curtis bag. Diuresed well with lasix yesterday. OBJECTIVE: Vital Signs Period Temp Pulse Resp BP Sys/Eisenberg Pulse Ox Last 24 Hr 97 F-98.7 F 84-105 15-25 98-115/72-82 96-96 Intake & Output 03/10/18 03/11/18 03/12/18 03/13/18 23:59 23:59 23:59 23:59 Intake Total 245 60 150 Output Total 875 9380 2550 800 Balance -670 -6636 -4830 -275 Weight 85.7 kg 84.368 kg 82.826 kg Gen: less tachypneic Heart: irregular Lung: bibasilar rales Abd: soft, nontender Ext: no edema CBC, BMP 03/13/18 05:30 03/13/18 05:30 Active Medications Allopurinol (Zyloprim -) 100 mg PO DAILY [facility] Last Admin: 03/13/18 09:24 Dose: 100 mg Cholecalciferol (Vitamin D3 -) 2,000 unit PO DAILY [facility] Last Admin: 03/13/18 09:23 Dose: 2,000 unit Clopidogrel Bisulfate (Plavix -) 75 mg PO DAILY [facility] Last Admin: 03/13/18 09:23 Dose: 75 mg Docusate Sodium (Colace -) 100 mg PO Q8H PRN PRN Reason: CONSTIPATION Last Admin: 03/12/18 12:41 Dose: 100 mg Escitalopram Oxalate (Lexapro -) 10 mg PO DAILY [facility] Last Admin: 03/13/18 09:23 Dose: 10 mg Finasteride (Proscar -) 5 mg PO DAILY [facility] Last Admin: 03/13/18 09:23 Dose: 5 mg Furosemide 100 mg/ Sodium (Chloride) 100 mls @ 5 mls/hr IVPB ASDIR [facility]; Protocol Last Admin: 03/13/18 07:59 Dose: 5 mg/hr, 5 mls/hr Insulin Aspart (Novolog Vial Sliding Scale -) 1 vial SQ ACHS [facility]; Protocol Last Admin: 03/13/18 12:11 Dose: 2 unit Metoprolol Tartrate (Lopressor -) 25 mg PO BID [facility] Last Admin: 03/13/18 09:26 Dose: Not Given Rivaroxaban (Xarelto -) 15 mg PO DAILY [facility] Last Admin: 03/13/18 09:24 Dose: 15 mg Rosuvastatin Calcium (Crestor -) 10 mg PO HS [facility] Last Admin: 03/12/18 22:13 Dose: 10 mg Tamsulosin HCl (Flomax -) 0.4 mg PO BID@0830,2200 [facility] Last Admin: 03/13/18 08:08 Dose: 0.4 mg ASSESSMENT AND PLAN: Acute on Chronic Systolic Heart Failure Atrial Fibrillation CAD +Troponins likely Demand Ischemia Acute on Chronic Renal Failure HTN DM Hyperlipidemia Hematuria - continue lasix - monitor urine output, creatinine - keep net negative - daily weights - rate controlled - resume anticoagulation, monitor hematuria - O2 to keep SpO2 >90% - can monitor on telemetry
[2018-03-13] MEDS ORDERED: ZOLPIDEM TARTRATE 5 MG TABLET PO PRN (13:01)
--- NOTE | 2018-03-13 13:04 | PN ---
Physical Exam: SUBJECTIVE: Patient seen and examined. Holt got clogged, was flushed to good effect. Holt now draining freely. Lopressor given early due to HR of 120 and Afib noticed on telemetry. Pt. endorses dyspnea on exertion. OBJECTIVE: Vital Signs Period Temp Pulse Resp BP Sys/Eisenberg Pulse Ox Last 24 Hr 97 F-98.7 F 84-105 15-25 98-115/72-82 96-96 GENERAL: The patient is awake, alert, and fully oriented, in mild respiratory distress. ENT: Moist mucous membranes. LUNGS: no wheezes, no crackles in fluid dependant areas of axilla and anteriorly , no accessory muscle use. HEART: Regular rate and rhythm, S1, S2 without murmur ABDOMEN: Soft, nontender, nondistended, normoactive bowel sounds, no guarding, tympanic EXTREMITIES: 2+ dorsal pedal pulses, warm, well-perfused, no edema, no calf tenderness. NEUROLOGICAL: Normal speech, gait not observed. PSYCH: Normal mood, normal affect. SKIN: Warm, dry, normal turgor Laboratory Results - last 24 hr 03/12/18 03/12/18 03/13/18 17:12 21:39 05:30 WBC 11.1 H RBC 4.36 Hgb 12.1 Hct 38.0 MCV 87.1 MCH 27.8 MCHC 31.9 L RDW 16.8 H Plt Count 235 MPV 8.0 Sodium Potassium Chloride Carbon Dioxide Anion Gap BUN Creatinine Creat Clearance w eGFR POC Glucometer 182.11572 170.00436 Random Glucose Calcium Phosphorus Magnesium 03/13/18 03/13/18 03/13/18 05:30 06:14 12:05 WBC RBC Hgb Hct MCV MCH MCHC RDW Plt Count MPV Sodium 138 Potassium 4.3 Chloride 103 Carbon Dioxide 26 Anion Gap 9 BUN 58 H Creatinine 1.7 H Creat Clearance w eGFR 39.38 POC Glucometer 158.14988 208.03026 Random Glucose 131 H Calcium 9.0 Phosphorus 3.4 D Magnesium 2.6 H Active Medications Current Medications Allopurinol (Zyloprim -) 100 mg PO DAILY [facility] Last Admin: 03/13/18 09:24 Dose: 100 mg Cholecalciferol (Vitamin D3 -) 2,000 unit PO DAILY [facility] Last Admin: 03/13/18 09:23 Dose: 2,000 unit Clopidogrel Bisulfate (Plavix -) 75 mg PO DAILY [facility] Last Admin: 03/13/18 09:23 Dose: 75 mg Docusate Sodium (Colace -) 100 mg PO Q8H PRN PRN Reason: CONSTIPATION Last Admin: 03/12/18 12:41 Dose: 100 mg Escitalopram Oxalate (Lexapro -) 10 mg PO DAILY [facility] Last Admin: 03/13/18 09:23 Dose: 10 mg Finasteride (Proscar -) 5 mg PO DAILY [facility] Last Admin: 03/13/18 09:23 Dose: 5 mg Furosemide 100 mg/ Sodium (Chloride) 100 mls @ 5 mls/hr IVPB ASDIR [facility]; Protocol Last Admin: 03/13/18 07:59 Dose: 5 mg/hr, 5 mls/hr Insulin Aspart (Novolog Vial Sliding Scale -) 1 vial SQ ACHS [facility]; Protocol Last Admin: 03/13/18 12:11 Dose: 2 unit Metoprolol Tartrate (Lopressor -) 25 mg PO BID [facility] Last Admin: 03/13/18 09:26 Dose: Not Given Rivaroxaban (Xarelto -) 15 mg PO DAILY [facility] Last Admin: 03/13/18 09:24 Dose: 15 mg Rosuvastatin Calcium (Crestor -) 10 mg PO HS [facility] Last Admin: 03/12/18 22:13 Dose: 10 mg Tamsulosin HCl (Flomax -) 0.4 mg PO BID@0830,2200 [facility] Last Admin: 03/13/18 08:08 Dose: 0.4 mg Zolpidem Tartrate (Ambien -) 5 mg PO HS PRN PRN Reason: INSOMNIA ASSESSMENT/PLAN: The patient is a 78 year old with a PMH of CHF, CAD, s/p stent in 2017, CKD, HLD , pre diabetes, who presents to the hospital with worsening SOB x 3 days. He is admitted for CHF exacerbation and hypotension. #Cardiovascular -hold BP medications (Torsemide 40mg daily and Spironolactone 25 mg daily) as BP has been low since admission -strict I&O, daily weights -monitor BP, baseline systolic 115-120 -troponins trended- peaked at 0.21, no new ekg changes, no ST elevations or depressions -c/w Crestor for HLD -c/w IV Lasix 100mg drip@ 5ml/hr -Cardiology consult appreciated- restart xarelto as blood loss in hematuria is not significant now. #Pulmonology -c/w IV Lasix 100mg drip@ 5ml/hr -CXR(03/12/18) shows worsening progressive pulmonary and pleural changes -CXR(03/13/18) shows improving pulmonary congestion/infiltration bilaterally #Renal -c/w IV Lasix 100mg drip@ 5ml/hr -bladder scan showed 700 ml urinary retention -Holt placed 03/11/18- draining red colored urine -hold nephrotoxic substances; Losartan 50 mg daily (home dose) and Metformin 500 mg PO HS -c/w Finasteride 5mg daily and Tamsulosin 0.4 mg daily for BPH -Renal/Bladder US appreciated shows no evidence of hydronephrosis, prostate volume of 29.7 ml(normal), mildly atrophic kidneys -Renal consult appreciated- c/w Holt and Lasix drip. #Endocrinology -c/w insulin sliding scale #DVT PPx. -Restarting Xarelto -c/w SCDs -c/w Plavix #Dispo -ICU Visit type - Emergency Visit Emergency Visit: Yes ED Registration Date: 03/10/18 Care time: The patient presented to the Emergency Department on the above date and was hospitalized for further evaluation of their emergent condition. - New Patient This patient is new to me today: No - Critical Care Critical Care patient: No - Discharge Referral Referred to [facility] Med [facility] No
[2018-03-13] MEDS ORDERED: DOCUSATE SODIUM 100 MG CAPSULE (FP) PO PRN (13:46)
--- NOTE | 2018-03-13 13:51 | PN ---
Progress Note, Physician History of Present Illness: Pt w/o CP, palpitations, abd pain, N, V. + constipation Pt is breathing better at night. Pt is tolerating Holt cath. Pt's ICU nurse at beside. Pt's daughter at bedside Pt was seen and examined in ICU - Current Medication List Current Medications: Active Medications Allopurinol (Zyloprim -) 100 mg PO DAILY [facility] Last Admin: 03/13/18 09:24 Dose: 100 mg Cholecalciferol (Vitamin D3 -) 2,000 unit PO DAILY [facility] Last Admin: 03/13/18 09:23 Dose: 2,000 unit Clopidogrel Bisulfate (Plavix -) 75 mg PO DAILY [facility] Last Admin: 03/13/18 09:23 Dose: 75 mg Escitalopram Oxalate (Lexapro -) 10 mg PO DAILY [facility] Last Admin: 03/13/18 09:23 Dose: 10 mg Finasteride (Proscar -) 5 mg PO DAILY [facility] Last Admin: 03/13/18 09:23 Dose: 5 mg Furosemide 100 mg/ Sodium (Chloride) 100 mls @ 5 mls/hr IVPB ASDIR [facility]; Protocol Last Admin: 03/13/18 07:59 Dose: 5 mg/hr, 5 mls/hr Insulin Aspart (Novolog Vial Sliding Scale -) 1 vial SQ ACHS [facility]; Protocol Last Admin: 03/13/18 12:11 Dose: 2 unit Metoprolol Tartrate (Lopressor -) 25 mg PO BID [facility] Last Admin: 03/13/18 09:26 Dose: Not Given Rivaroxaban (Xarelto -) 15 mg PO DAILY [facility] Last Admin: 03/13/18 09:24 Dose: 15 mg Rosuvastatin Calcium (Crestor -) 10 mg PO HS [facility] Last Admin: 03/12/18 22:13 Dose: 10 mg Tamsulosin HCl (Flomax -) 0.4 mg PO BID@0830,2200 [facility] Last Admin: 03/13/18 08:08 Dose: 0.4 mg Zolpidem Tartrate (Ambien -) 5 mg PO HS PRN PRN Reason: INSOMNIA - Objective Vital Signs: Vital Signs Temperature 97.4 F L 03/13/18 06:00 Pulse Rate 90 03/13/18 11:00 Respiratory Rate 17 03/13/18 11:00 Blood Pressure 98/76 03/13/18 11:00 O2 Sat by Pulse Oximetry (%) 96 03/13/18 07:35 Constitutional: Yes: No Distress, Other (Holt in place, still draining blody urine (improved from yesterday)) Cardiovascular: Yes: Regular Rate and Rhythm, S1, S2 Respiratory: Yes: Regular, Other (crackles at bases) Gastrointestinal: Yes: Normal Bowel Sounds, Soft. No: Tenderness Edema: No Neurological: Yes: Alert, Oriented Labs: CBC, BMP 03/13/18 05:30 03/13/18 05:30 Problem List - Problems (1) Acute systolic CHF (congestive heart failure) Code(s): I50.21 - ACUTE SYSTOLIC (CONGESTIVE) HEART FAILURE (2) Elevated troponin I level Code(s): R74.8 - ABNORMAL LEVELS OF OTHER SERUM ENZYMES (3) Hypotension Code(s): I95.9 - HYPOTENSION, UNSPECIFIED (4) PACO (acute kidney injury) Code(s): N17.9 - ACUTE KIDNEY FAILURE, UNSPECIFIED (5) CRF (chronic renal failure) Code(s): N18.9 - CHRONIC KIDNEY DISEASE, UNSPECIFIED (6) Hypercholesteremia Code(s): E78.00 - PURE HYPERCHOLESTEROLEMIA, UNSPECIFIED (7) Hypertension Code(s): I10 - ESSENTIAL (PRIMARY) HYPERTENSION (8) Pleural effusion Code(s): J90 - PLEURAL EFFUSION, NOT ELSEWHERE CLASSIFIED (9) CAD (coronary artery disease) Code(s): I25.10 - ATHSCL HEART DISEASE OF [place] CORONARY ARTERY W/O ANG PCTRS (10) AICD (automatic cardioverter/defibrillator) present Code(s): Z95.810 - PRESENCE OF AUTOMATIC (IMPLANTABLE) CARDIAC DEFIBRILLATOR (11) PAF (paroxysmal atrial fibrillation) Code(s): I48.0 - PAROXYSMAL ATRIAL FIBRILLATION (12) Urinary retention Code(s): R33.9 - RETENTION OF URINE, UNSPECIFIED (13) Hematuria Code(s): R31.9 - HEMATURIA, UNSPECIFIED Assessment/Plan Admitted to ICU. Serial CE -stable. slightly down ICU/CCM, Cardio, Renal, consults are appreciated Lasix IV drip s/p Holt placement (secondary to UR) Home med on hold: Losartan, Spironolactone, Torsemide, Metformin. BGM with Novolog coverage. Restarted on Metoprolol, low dose, as BP allows it; BP still low. AM labs. Pt's case was d/w pt's ICU nurse. Pt's conditona was reviewed with hism and daughter; all questions were answered Time for managing pt's care: over 35 minutes.
[2018-03-13] MEDS: ROSUVASTATIN CA 10 MG TABLET (FP) PO SCH (21:50)
[2018-03-13] MEDS ORDERED: FUROSEMIDE INJECTION 100 MG in SODIUM CHLORIDE 90 ML IVPB SCH (23:19)
[2018-03-14] MEDS ORDERED: HEMOQUE TEST 1 EACH EACH ONE (02:43)
[2018-03-14] MEDS: INSULIN SLIDING SCALE (NOVOLOG) 1 VIAL SQ SCH ×4 (06:11→21:23)
[2018-03-14 06:34] LABS: BASO % 0.3 % (0-2.0); EOS % 0.4 % (0-4.5); HEMATOCRIT 37.9 % (35.4-49); HEMOGLOBIN 12.2 GM/dL (11.7-16.9); LYMPH % 10.7 % (8-40); MCHC 32.1 g/dl (32.0-35.9); MEAN CELL VOLUME 87.1 fl (80-96); NEUT % 80.6 % (42.8-82.8); PLATELET COUNT 246 K/MM3 (134-434); RBC 4.35 M/mm3 (4.00-5.60); RDW 17.6 % (11.9-15.9); WHITE BLOOD COUNT 10.4 K/mm3 (4.0-10.0)
[2018-03-14 06:50] LABS: CHLORIDE 102 mmol/L (98-107); POTASSIUM 4.5 mmol/L (3.5-5.1); SODIUM 137 mmol/L (136-145)
[2018-03-14 06:57] LABS: ALBUMIN 3.4 g/dl (3.4-5.0); ALK PHOS 45 U/L (45-117); ANION GAP 7 MMOL/L (8-16); BILIRUBIN,TOTAL 0.5 mg/dL (0.2-1.0); BLOOD UREA NITROGEN 59 mg/dL (7-18); CALCIUM 8.9 mg/dL (8.5-10.1); CO2 28 mmol/L (21-32); CREATININE 1.8 mg/dL (0.7-1.3); GLUCOSE,RANDOM 135 mg/dL (74-106); MAGNESIUM 2.5 mg/dL (1.8-2.4); SGOT/AST 10 U/L (15-37); SGPT/ALT 13 U/L (12-78); TOT PROT 6.7 g/dl (6.4-8.2)
[2018-03-14] MEDS: TAMSULOSIN HCL 0.4 MG CAP PO SCH ×2 (09:00→21:17)
[2018-03-14] MEDS ORDERED: BACITRACIN 15 GM TUBE TOPICAL OINTMENT TP SCH (10:00)
[2018-03-14] MEDS ORDERED: METOPROLOL TARTRATE 25 MG TABLET (FP) PO SCH ×2 (10:00→11:32)
[2018-03-14] MEDS: ALLOPURINOL 100 MG TABLET (FP) PO SCH (10:44)
[2018-03-14] MEDS: FINASTERIDE 5 MG TABLET (FP) PO SCH (10:44)
[2018-03-14] MEDS: CHOLECALCIFEROL (VITAMIN D3) 1,000 UNIT TABLET (FP) PO SCH (10:44)
[2018-03-14] MEDS: CLOPIDOGREL BISULFATE 75 MG TABLET (FP) PO SCH (10:44)
[2018-03-14] MEDS: ESCITALOPRAM OXALATE 10 MG TABLET (FP) PO SCH (10:45)
[2018-03-14] MEDS ORDERED: METOLAZONE 5 MG TABLET PO ONE (11:07)
--- NOTE | 2018-03-14 11:09 | PN ---
Progress Note (short form) - Note Progress Note: s: no cp palps dizzy; sob a little better o: Vital Signs Period Temp Pulse Resp BP Sys/Eisenberg Pulse Ox Last 24 Hr 97.3 F-99.3 F 84-100 17-26 95-127/64-84 96 Constitutional: Yes: Well Nourished, No Distress, Calm Eyes: Yes: Conjunctiva Clear Neck: Yes: Supple, Trachea Midline Respiratory: Yes: Regular, On Nasal O2, Orthopnea, Rales (bilateral) Gastrointestinal: Yes: Normal Bowel Sounds, Soft Cardiovascular: Yes: Regular Rate and Rhythm JVD: Yes Heart Sounds: Yes: S1, S2 Edema: Yes Edema: no Psychiatric: Yes: Alert, Oriented no jaundice diaphoresis Current Medications Generic Name Dose Route Start Last Admin Trade Name Freq PRN Reason Stop Dose Admin Allopurinol 100 mg 03/14/18 10:00 03/14/18 10:44 Zyloprim - PO 100 mg DAILY [facility] Administration Bacitracin 1 applic 03/14/18 10:00 Bacitracin - TP DAILY [facility] Cholecalciferol 2,000 unit 03/14/18 10:00 03/14/18 10:44 Vitamin D3 - PO 2,000 unit DAILY [facility] Administration Clopidogrel Bisulfate 75 mg 03/14/18 10:00 03/14/18 10:44 Plavix - PO 75 mg DAILY [facility] Administration Docusate Sodium 100 mg 03/13/18 13:46 Colace - PO BID PRN CONSTIPATION Escitalopram Oxalate 10 mg 03/14/18 10:00 03/14/18 10:45 Lexapro - PO 10 mg DAILY [facility] Administration Finasteride 5 mg 03/14/18 10:00 03/14/18 10:44 Proscar - PO 5 mg DAILY [facility] Administration Furosemide 100 mg/ Sodium 100 mls @ 5 mls/hr 03/13/18 23:19 03/14/18 06:11 Chloride IVPB 5 mg/hr ASDIR [facility] 5 mls/hr Administration Protocol 5 MG/HR Insulin Aspart 1 vial 03/14/18 07:00 03/14/18 06:11 Novolog Vial Sliding Scale - SQ Not Given ACHS [facility] Protocol Metolazone 5 mg 03/14/18 11:07 Zaroxolyn - PO 03/14/18 11:08 ONCE ONE Metoprolol Tartrate 25 mg 03/14/18 10:00 03/14/18 10:44 Lopressor - PO 25 mg BID [facility] Administration Rosuvastatin Calcium 10 mg 03/14/18 22:00 Crestor - PO HS [facility] Tamsulosin HCl 0.4 mg 03/14/18 08:30 03/14/18 09:00 Flomax - PO 0.4 mg BID@0830,2200 [facility] Administration Zolpidem Tartrate 5 mg 03/13/18 13:01 Ambien - PO HS PRN INSOMNIA CBC, BMP 03/14/18 05:30 03/14/18 05:30 echo with definity 07/2017 dilated LV, EF20-25%, with apical AK, HK of inf and lat [place], grade II diastolic dysfunction, cath 04/2017 MLM 80-90% with severe calc, 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 EF 15% dyskinetic apex, s/p LM PCI tele: afib, rate 110-120 cxr: worse chf a/p 77M h/o HTN, HLD, DM, chronic systolic HF p/w shortness of breath for two weeks acute on chronic systolic HF s/p ICD - symptoms concerning for CHF exacerbation, BNP 8000 - at home was on torsemide 80 mg BID - continue bb as tolerated, hold losartan and spironolactone in setting of PACO - no sig change in wts or sob with lasix gtt so far. will dc gtt and start lasix 80 iv bid with metolazone today as well - monitor Cr, weights, I/O, chem7 CAD s/p LM stent 04/2017 - cont statin, plavix, metoprolol pos troponin -borderline trop elevation with flat trend and nl ck, not c/w acs afib - restarted on metoprolol 25 mg BID with improved rates, uptitrate as tolerated however has had low BP - cont xarelto PACO - may be cardiorenal, obstructive - improving with diuresis, ucrtis placement - renal ultrasound, no obstruction - Cr 1.4 in clinic 12/2017 - appreciate nephrology, urology recs HTN - low BP as above HLD - cont statin DM - manage per primary
[2018-03-14] MEDS ORDERED: FUROSEMIDE INJECTION 100 MG in SODIUM CHLORIDE 90 ML IVPB SCH ×2 (11:30→11:41)
--- NOTE | 2018-03-14 11:34 | PN ---
Progress Note (short form) - Note Progress Note: Renal follow up for PACO Pt seen and examined in the ICU continues to have mild sob no cp, abd pain, N/V/D making urine via curtis remains slightly bloody Vital Signs Temperature 97.3 F L 03/14/18 10:00 Pulse Rate 96 H 03/14/18 10:00 Respiratory Rate 18 03/14/18 10:00 Blood Pressure 104/75 03/14/18 10:00 O2 Sat by Pulse Oximetry (%) 96 03/13/18 20:31 Intake & Output 03/11/18 03/12/18 03/13/18 03/14/18 23:59 23:59 23:59 23:59 Intake Total 528 53 2970 Output Total 1550 2550 1999 Balance -2471 -2190 -920 Weight 84.368 kg 82.826 kg 84.567 kg NAD awake and alert RRR, No M/R + rales right lung base soft NT/ND no Le edema CBC, BMP 03/14/18 05:30 03/14/18 05:30 Current Medications Allopurinol (Zyloprim -) 100 mg PO DAILY [facility] Last Admin: 03/14/18 10:44 Dose: 100 mg Cholecalciferol (Vitamin D3 -) 2,000 unit PO DAILY [facility] Last Admin: 03/14/18 10:44 Dose: 2,000 unit Clopidogrel Bisulfate (Plavix -) 75 mg PO DAILY [facility] Last Admin: 03/14/18 10:44 Dose: 75 mg Docusate Sodium (Colace -) 100 mg PO BID PRN PRN Reason: CONSTIPATION Escitalopram Oxalate (Lexapro -) 10 mg PO DAILY [facility] Last Admin: 03/14/18 10:45 Dose: 10 mg Finasteride (Proscar -) 5 mg PO DAILY [facility] Last Admin: 03/14/18 10:44 Dose: 5 mg Furosemide (Lasix Injection -) 80 mg IVPUSH ONCE ONE Stop: 03/14/18 14:01 Furosemide (Lasix Injection -) 80 mg IVPUSH BID@0600,1400 [facility] Furosemide 100 mg/ Sodium (Chloride) 100 mls @ 7.5 mls/hr IVPB ASDIR [facility]; Protocol Stop: 03/14/18 12:00 Insulin Aspart (Novolog Vial Sliding Scale -) 1 vial SQ ACHS [facility]; Protocol Last Admin: 03/14/18 06:11 Dose: Not Given Metolazone (Zaroxolyn -) 2.5 mg PO ONCE ONE Stop: 03/14/18 13:01 Metoprolol Tartrate (Lopressor -) 25 mg PO BID [facility] Rosuvastatin Calcium (Crestor -) 10 mg PO HS [facility] Tamsulosin HCl (Flomax -) 0.4 mg PO BID@0830,2200 [facility] Last Admin: 03/14/18 09:00 Dose: 0.4 mg Zolpidem Tartrate (Ambien -) 5 mg PO HS PRN PRN Reason: INSOMNIA 78 year old gentleman with Hx of CHF, Hypertension, HLD, DM who presented with SOB and admitted for CHF exacerbation with PACO. #PACO on ? 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 obstruction/urinary retention #CHF Exacerbation #BPH with ? retention #Gross hematuria following catheter placement #Renal Cysts Renal function improved and stable thus far and continues to have HF symptoms pt does not seem to be losing weight, can consider increasing Lasix agree with high bolus dose of Lasix BID and addition of metolazone can d/c lasix gtt when bolous given Trend renal function and electrolytes Trend H/H maintain curtis for now Efrain Casey DO
--- NOTE | 2018-03-14 12:01 | PN ---
Physical Exam: SUBJECTIVE: Patient seen and examined. Pt. had hard BM, requested a stool softener. Pt. says SOB is about the same as yesterday, denies chest pain or palpitations. Per nursing note, Pt. has been eating only about 25% of meals for the last few meals. Metoprolol was held because SBP was under 100. Pt. becomes dyspneic on exertion but is not so at rest. OBJECTIVE: Vital Signs Period Temp Pulse Resp BP Sys/Eisenberg Pulse Ox Last 24 Hr 97.3 F-99.3 F 84-100 17-26 95-127/64-84 96 GENERAL: The patient is awake, alert but lethargic, and fully oriented, in no acute distress. LUNGS: congestion and crackles bilaterally, no accessory muscle use. HEART: Regular rate and rhythm, S1, S2 without murmur ABDOMEN: Soft, nontender, nondistended, normoactive bowel sounds, no guarding, no rebound, tympanic to percussion EXTREMITIES: warm, well-perfused, no edema, no calf tenderness. PSYCH: Normal mood, normal affect. SKIN: Warm, dry, normal turgor, no rashes or lesions noted Laboratory Results - last 24 hr 03/13/18 03/13/18 03/13/18 12:05 16:22 21:58 WBC RBC Hgb Hct MCV MCH MCHC RDW Plt Count MPV Absolute Neuts (auto) Neutrophils % Lymphocytes % Monocytes % Eosinophils % Basophils % Nucleated RBC % Sodium Potassium Chloride Carbon Dioxide Anion Gap BUN Creatinine Creat Clearance w eGFR POC Glucometer 208.27199 186.91435 238.52746 Random Glucose Calcium Phosphorus Magnesium Total Bilirubin AST ALT Alkaline Phosphatase Total Protein Albumin 03/14/18 03/14/18 03/14/18 05:30 05:30 05:45 WBC 10.4 H RBC 4.35 Hgb 12.2 Hct 37.9 MCV 87.1 MCH 28.0 MCHC 32.1 RDW 17.6 H Plt Count 246 MPV 8.0 Absolute Neuts (auto) 8.4 H Neutrophils % 80.6 Lymphocytes % 10.7 Monocytes % 8.0 Eosinophils % 0.4 Basophils % 0.3 Nucleated RBC % 0 Sodium 137 Potassium 4.5 Chloride 102 Carbon Dioxide 28 Anion Gap 7 L BUN 59 H Creatinine 1.8 H Creat Clearance w eGFR 36.87 POC Glucometer [phone] Random Glucose 135 H Calcium 8.9 Phosphorus 4.0 Magnesium 2.5 H Total Bilirubin 0.5 AST 10 L D ALT 13 Alkaline Phosphatase 45 Total Protein 6.7 Albumin 3.4 Active Medications Current Medications Allopurinol (Zyloprim -) 100 mg PO DAILY [facility] Last Admin: 03/14/18 10:44 Dose: 100 mg Cholecalciferol (Vitamin D3 -) 2,000 unit PO DAILY [facility] Last Admin: 03/14/18 10:44 Dose: 2,000 unit Clopidogrel Bisulfate (Plavix -) 75 mg PO DAILY [facility] Last Admin: 03/14/18 10:44 Dose: 75 mg Docusate Sodium (Colace -) 100 mg PO BID PRN PRN Reason: CONSTIPATION Escitalopram Oxalate (Lexapro -) 10 mg PO DAILY [facility] Last Admin: 03/14/18 10:45 Dose: 10 mg Finasteride (Proscar -) 5 mg PO DAILY [facility] Last Admin: 03/14/18 10:44 Dose: 5 mg Furosemide (Lasix Injection -) 80 mg IVPUSH ONCE ONE Stop: 03/14/18 14:01 Furosemide (Lasix Injection -) 80 mg IVPUSH BID@0600,1400 [facility] Furosemide 100 mg/ Sodium (Chloride) 100 mls @ 5 mls/hr IVPB ASDIR [facility]; Protocol Stop: 03/14/18 14:00 Last Admin: 03/14/18 12:27 Dose: Not Given Insulin Aspart (Novolog Vial Sliding Scale -) 1 vial SQ ACHS [facility]; Protocol Last Admin: 03/14/18 12:26 Dose: 6 units Metolazone (Zaroxolyn -) 2.5 mg PO ONCE ONE Stop: 03/14/18 13:01 Metoprolol Tartrate (Lopressor -) 25 mg PO BID [facility] Rosuvastatin Calcium (Crestor -) 10 mg PO HS [facility] Tamsulosin HCl (Flomax -) 0.4 mg PO BID@0830,2200 [facility] Last Admin: 03/14/18 09:00 Dose: 0.4 mg Zolpidem Tartrate (Ambien -) 5 mg PO HS PRN PRN Reason: INSOMNIA ASSESSMENT/PLAN: A 78 year old with a PMH of CHF, CAD, s/p stent in 2017, CKD, HLD, pre diabetes , who presents to the hospital with worsening SOB x 3 days. He is admitted for CHF exacerbation and hypotension. #Cardiovascular -hold BP medications except Metoprolol which will be given at half dose( Torsemide 40mg daily and Spironolactone 25 mg daily) as BP has been low since admission. Changed parameters of holding Metoprolol to 90 SBP as pt. has been having low BP throughout hospital course. -strict I&O, daily weights -monitor BP, baseline systolic 115-120 -troponins trended- peaked at 0.21, no new ekg changes, no ST elevations or depressions -c/w Crestor for HLD -D/C IV Lasix 100mg drip@ 5ml/hr -Cardiology consult appreciated- restart xarelto as blood loss in hematuria is not significant now. -Will give 80mg IVP per Cardiology consult -Metalozone 5mg given, additional 2.5mg to be given at 1 pm (03/14/18) #Pulmonology -D/C IV Lasix 100mg drip@ 5ml/hr -CXR(03/12/18) shows worsening progressive pulmonary and pleural changes -CXR(03/13/18) shows improving pulmonary congestion/infiltration bilaterally -CXR(03/14/18) show worsening progressive pulmonary and pleural changes -Will give 80mg IVP per Cardiology consult -Metalozone 5mg given, additional 2.5mg to be given at 1 pm (03/14/18) #Renal -D/C IV Lasix 100mg drip@ 5ml/hr -bladder scan showed 700 ml urinary retention -Holt placed 03/11/18- draining red colored urine -hold nephrotoxic substances; Losartan 50 mg daily (home dose) and Metformin 500 mg PO HS -c/w Finasteride 5mg daily and Tamsulosin 0.4 mg daily for BPH -Renal/Bladder US appreciated shows no evidence of hydronephrosis, prostate volume of 29.7 ml(normal), mildly atrophic kidneys -Renal consult appreciated- c/w Holt and Lasix drip. -Will give 80mg IVP per Cardiology consult -Metalozone 5mg given, additional 2.5mg to be given at 1 pm (03/14/18) #Endocrinology -c/w insulin sliding scale #DVT PPx. -Restarting Xarelto -c/w SCDs -c/w Plavix -encourage OOB ambulation #Dispo -ICU Visit type - Emergency Visit Emergency Visit: Yes ED Registration Date: 03/10/18 Care time: The patient presented to the Emergency Department on the above date and was hospitalized for further evaluation of their emergent condition. - New Patient This patient is new to me today: No - Critical Care Critical Care patient: No - Discharge Referral Referred to [facility] Med [facility] No
[2018-03-14] MEDS ORDERED: INSULIN (NOVOLOG) ASPART 100 UNITS/ML 10ML VIAL ONE (12:23)
--- NOTE | 2018-03-14 12:29 | PN ---
Teaching Attending Note Name of Resident: Urbano Bates ATTENDING PHYSICIAN STATEMENT I saw and evaluated the patient. I reviewed the resident's note and discussed the case with the resident. I agree with the resident's findings and plan as documented. SUBJECTIVE: Pt seen and examined in the ICU. Breathing continues to improve. Diuresing well with lasix. Bloody tinged urine in curtis bag. OBJECTIVE: Vital Signs Period Temp Pulse Resp BP Sys/Eisenberg Pulse Ox Last 24 Hr 97.3 F-99.3 F 84-100 17-26 95-127/64-84 96 Intake & Output 03/11/18 03/12/18 03/13/18 03/14/18 23:59 23:59 23:59 23:59 Intake Total 008 94 4967 Output Total 4780 6390 1999 Balance -2112 -1768 -474 Weight 84.368 kg 82.826 kg 84.567 kg Gen: less tachypneic Heart: irregular Lung: bibasilar rales Abd: soft, nontender Ext: no edema CBC, BMP 03/14/18 05:30 03/14/18 05:30 Active Medications Allopurinol (Zyloprim -) 100 mg PO DAILY [facility] Last Admin: 03/14/18 10:44 Dose: 100 mg Cholecalciferol (Vitamin D3 -) 2,000 unit PO DAILY [facility] Last Admin: 03/14/18 10:44 Dose: 2,000 unit Clopidogrel Bisulfate (Plavix -) 75 mg PO DAILY [facility] Last Admin: 03/14/18 10:44 Dose: 75 mg Docusate Sodium (Colace -) 100 mg PO BID PRN PRN Reason: CONSTIPATION Escitalopram Oxalate (Lexapro -) 10 mg PO DAILY [facility] Last Admin: 03/14/18 10:45 Dose: 10 mg Finasteride (Proscar -) 5 mg PO DAILY [facility] Last Admin: 03/14/18 10:44 Dose: 5 mg Furosemide (Lasix Injection -) 80 mg IVPUSH ONCE ONE Stop: 03/14/18 14:01 Furosemide (Lasix Injection -) 80 mg IVPUSH BID@0600,1400 [facility] Furosemide 100 mg/ Sodium (Chloride) 100 mls @ 5 mls/hr IVPB ASDIR [facility]; Protocol Stop: 03/14/18 14:00 Last Admin: 03/14/18 12:27 Dose: Not Given Insulin Aspart (Novolog Vial Sliding Scale -) 1 vial SQ ACHS [facility]; Protocol Last Admin: 03/14/18 12:26 Dose: 6 units Metolazone (Zaroxolyn -) 2.5 mg PO ONCE ONE Stop: 03/14/18 13:01 Metoprolol Tartrate (Lopressor -) 25 mg PO BID [facility] Rosuvastatin Calcium (Crestor -) 10 mg PO HS [facility] Tamsulosin HCl (Flomax -) 0.4 mg PO BID@0830,2200 [facility] Last Admin: 03/14/18 09:00 Dose: 0.4 mg Zolpidem Tartrate (Ambien -) 5 mg PO HS PRN PRN Reason: INSOMNIA ASSESSMENT AND PLAN: Acute on Chronic Systolic Heart Failure Atrial Fibrillation CAD +Troponins likely Demand Ischemia Acute on Chronic Renal Failure HTN DM Hyperlipidemia Hematuria - continue lasix - monitor urine output, creatinine - keep net negative - daily weights - rate controlled - resume anticoagulation, monitor hematuria - O2 to keep SpO2 >90% - can monitor on telemetry
[2018-03-14] MEDS ORDERED: METOLAZONE 2.5 MG TABLET (FP) PO ONE (13:00)
[2018-03-14] MEDS ORDERED: FUROSEMIDE 40 MG/4 ML INJECTABLE VIAL IVPUSH ONE (14:00)
--- NOTE | 2018-03-14 18:25 | PN ---
Progress Note (short form) - Note Progress Note: UROLOGY NOTE 78 Y/O Male patient with history of BPH, HT, HF AF, DVELOPED GROSS HEMATURIA AFTER CURTIS CATHETER INSERTION 03/10. no fever no pain. he is on flomax and proscar. Renal US atrophic kidney. no hydro. S, Creat 2 urea 58. soft lax abd normal genitalia, 16 Fr curtis catheter in place draining clear to rosery urine. Plan: keep curtis for 1 week will schedule him for cystoscopy as out patient. flomax 0.4 mg once a day proscar 5 mg once a day.
--- NOTE | 2018-03-14 18:39 | PN ---
Progress Note, Physician History of Present Illness: Pt is breathing better at night; still with ROJO. Pt w/o CP, palpitations, abd pain, N, V. + BM today. Pt is tolerating Holt cath. 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 Pt was seen and examined in ICU - Current Medication List Current Medications: Active Medications Allopurinol (Zyloprim -) 100 mg PO DAILY [facility] Last Admin: 03/14/18 10:44 Dose: 100 mg Cholecalciferol (Vitamin D3 -) 2,000 unit PO DAILY [facility] Last Admin: 03/14/18 10:44 Dose: 2,000 unit Clopidogrel Bisulfate (Plavix -) 75 mg PO DAILY [facility] Last Admin: 03/14/18 10:44 Dose: 75 mg Docusate Sodium (Colace -) 100 mg PO BID PRN PRN Reason: CONSTIPATION Escitalopram Oxalate (Lexapro -) 10 mg PO DAILY [facility] Last Admin: 03/14/18 10:45 Dose: 10 mg Finasteride (Proscar -) 5 mg PO DAILY [facility] Last Admin: 03/14/18 10:44 Dose: 5 mg Furosemide (Lasix Injection -) 80 mg IVPUSH BID@0600,1400 [facility] Insulin Aspart (Novolog Vial Sliding Scale -) 1 vial SQ [facility]; Protocol Last Admin: 03/14/18 17:12 Dose: Not Given Metoprolol Tartrate (Lopressor -) 25 mg PO BID [facility] Rosuvastatin Calcium (Crestor -) 10 mg PO HS [facility] Tamsulosin HCl (Flomax -) 0.4 mg PO BID@0830,2200 [facility] Last Admin: 03/14/18 09:00 Dose: 0.4 mg Zolpidem Tartrate (Ambien -) 5 mg PO HS PRN PRN Reason: INSOMNIA - Objective Vital Signs: Vital Signs Temperature 97.6 F 03/14/18 14:00 Pulse Rate 90 03/14/18 14:00 Respiratory Rate 23 03/14/18 14:00 Blood Pressure 104/69 03/14/18 14:00 O2 Sat by Pulse Oximetry (%) 96 03/14/18 09:00 Constitutional: Yes: No Distress, Calm Cardiovascular: Yes: Regular Rate and Rhythm, S1, S2 Respiratory: Yes: Regular, Other (+ crackles at both bases) Gastrointestinal: Yes: Normal Bowel Sounds, Soft. No: Tenderness Genitourinary: Yes: Holt Present (Holt is present, drainig light bloddy urine , improving) Edema: No Neurological: Yes: Alert, Oriented Labs: CBC, BMP 03/14/18 05:30 03/14/18 05:30 Problem List - Problems (1) Acute systolic CHF (congestive heart failure) Code(s): I50.21 - ACUTE SYSTOLIC (CONGESTIVE) HEART FAILURE (2) Elevated troponin I level Code(s): R74.8 - ABNORMAL LEVELS OF OTHER SERUM ENZYMES (3) Hypotension Code(s): I95.9 - HYPOTENSION, UNSPECIFIED (4) PACO (acute kidney injury) Code(s): N17.9 - ACUTE KIDNEY FAILURE, UNSPECIFIED (5) CRF (chronic renal failure) Code(s): N18.9 - CHRONIC KIDNEY DISEASE, UNSPECIFIED (6) Hypercholesteremia Code(s): E78.00 - PURE HYPERCHOLESTEROLEMIA, UNSPECIFIED (7) Hypertension Code(s): I10 - ESSENTIAL (PRIMARY) HYPERTENSION (8) Pleural effusion Code(s): J90 - PLEURAL EFFUSION, NOT ELSEWHERE CLASSIFIED (9) CAD (coronary artery disease) Code(s): I25.10 - ATHSCL HEART DISEASE OF [place] CORONARY ARTERY W/O ANG PCTRS (10) AICD (automatic cardioverter/defibrillator) present Code(s): Z95.810 - PRESENCE OF AUTOMATIC (IMPLANTABLE) CARDIAC DEFIBRILLATOR (11) PAF (paroxysmal atrial fibrillation) Code(s): I48.0 - PAROXYSMAL ATRIAL FIBRILLATION (12) Urinary retention Code(s): R33.9 - RETENTION OF URINE, UNSPECIFIED (13) Hematuria Code(s): R31.9 - HEMATURIA, UNSPECIFIED Assessment/Plan Admitted to ICU. Serial CE -stable. slightly down ICU/CCM, Cardio, Renal, consults are appreciated Lasix IV was changed from drip to IVP (BID) s/p Holt placement (secondary to UR), Flomax was increased. Home med on hold at admission: Losartan, Spironolactone, Torsemide, Metformin. BGM with Novolog coverage. PT was restarted on Metoprolol, low dose, as BP allows it. AM labs. PT Pt's case was d/w pt's ICU nurse. Time for managing pt's care: over 35 minutes.
[2018-03-14] MEDS: ROSUVASTATIN CA 10 MG TABLET (FP) PO SCH (21:17)
[2018-03-14] MEDS: METOPROLOL TARTRATE 25 MG TABLET (FP) PO SCH (21:17)
[2018-03-15] MEDS: FUROSEMIDE 40 MG/4 ML INJECTABLE VIAL IVPUSH SCH ×2 (06:05→14:21)
[2018-03-15] MEDS: INSULIN SLIDING SCALE (NOVOLOG) 1 VIAL SQ SCH ×4 (06:05→21:08)
[2018-03-15 06:13] LABS: HEMATOCRIT 38.4 % (35.4-49); HEMOGLOBIN 12.5 GM/dL (11.7-16.9); MCH 28.3 pg (25.7-33.7); MCHC 32.5 g/dl (32.0-35.9); MEAN CELL VOLUME 87.2 fl (80-96); PLATELET COUNT 243 K/MM3 (134-434); RDW 17.4 % (11.9-15.9); WHITE BLOOD COUNT 10.5 K/mm3 (4.0-10.0)
[2018-03-15 06:16] LABS: ANION GAP 8 MMOL/L (8-16); BLOOD UREA NITROGEN 59 mg/dL (7-18); CALCIUM 8.9 mg/dL (8.5-10.1); CHLORIDE 99 mmol/L (98-107); CO2 31 mmol/L (21-32); CREATININE 1.9 mg/dL (0.7-1.3); GLUCOSE,RANDOM 137 mg/dL (74-106); MAGNESIUM 2.4 mg/dL (1.8-2.4); PHOSPHOROUS 3.4 mg/dL (2.5-4.9); POTASSIUM 4.4 mmol/L (3.5-5.1); SODIUM 138 mmol/L (136-145)
--- NOTE | 2018-03-15 09:32 | PN ---
Teaching Attending Note Name of Resident: Urbano Bates ATTENDING PHYSICIAN STATEMENT I saw and evaluated the patient. I reviewed the resident's note and discussed the case with the resident. I agree with the resident's findings and plan as documented. SUBJECTIVE: Pt seen and examined in the ICU. States breathing better today. Diuresing well. OBJECTIVE: Vital Signs Period Temp Pulse Resp BP Sys/Eisenberg Pulse Ox Last 24 Hr 97.3 F-98.9 F 88-96 15-30 86-110/52-78 96 Intake & Output 03/12/18 03/13/18 03/14/18 03/15/18 23:59 23:59 23:59 23:59 Intake Total 60 1080 1115 100 Output Total 2550 2000 4810 400 Balance -5330 -920 -1335 -300 Weight 84.368 kg 82.826 kg 84.567 kg 82.554 kg Gen: less tachypneic Heart: irregular Lung: bibasilar rales Abd: soft, nontender Ext: no edema CBC, BMP 03/15/18 05:30 03/15/18 05:30 Active Medications Allopurinol (Zyloprim -) 100 mg PO DAILY [facility] Last Admin: 03/14/18 10:44 Dose: 100 mg Cholecalciferol (Vitamin D3 -) 2,000 unit PO DAILY [facility] Last Admin: 03/14/18 10:44 Dose: 2,000 unit Clopidogrel Bisulfate (Plavix -) 75 mg PO DAILY [facility] Last Admin: 03/14/18 10:44 Dose: 75 mg Docusate Sodium (Colace -) 100 mg PO BID PRN PRN Reason: CONSTIPATION Escitalopram Oxalate (Lexapro -) 10 mg PO DAILY [facility] Last Admin: 03/14/18 10:45 Dose: 10 mg Finasteride (Proscar -) 5 mg PO DAILY [facility] Last Admin: 03/14/18 10:44 Dose: 5 mg Furosemide (Lasix Injection -) 80 mg IVPUSH BID@0600,1400 [facility] Last Admin: 03/15/18 06:05 Dose: 80 mg Insulin Aspart (Novolog Vial Sliding Scale -) 1 vial SQ ACHS [facility]; Protocol Last Admin: 03/15/18 06:05 Dose: Not Given Metoprolol Tartrate (Lopressor -) 25 mg PO BID [facility] Last Admin: 03/14/18 21:17 Dose: 25 mg Rosuvastatin Calcium (Crestor -) 10 mg PO HS [facility] Last Admin: 03/14/18 21:17 Dose: 10 mg Tamsulosin HCl (Flomax -) 0.4 mg PO BID@0830,2200 [facility] Last Admin: 03/14/18 21:17 Dose: 0.4 mg Zolpidem Tartrate (Ambien -) 5 mg PO HS PRN PRN Reason: INSOMNIA ASSESSMENT AND PLAN: Acute on Chronic Systolic Heart Failure Atrial Fibrillation CAD +Troponins likely Demand Ischemia Acute on Chronic Renal Failure HTN DM Hyperlipidemia Hematuria - continue lasix - monitor urine output, creatinine - keep net negative - daily weights - rate controlled - resume anticoagulation, monitor hematuria - O2 to keep SpO2 >90% - can monitor on telemetry
[2018-03-15] MEDS ORDERED: FUROSEMIDE 40 MG/4 ML INJECTABLE VIAL ONE (09:47)
[2018-03-15] MEDS: TAMSULOSIN HCL 0.4 MG CAP PO SCH ×2 (09:56→21:03)
[2018-03-15] MEDS: ALLOPURINOL 100 MG TABLET (FP) PO SCH (09:56)
[2018-03-15] MEDS: ESCITALOPRAM OXALATE 10 MG TABLET (FP) PO SCH (09:56)
[2018-03-15] MEDS: METOPROLOL TARTRATE 25 MG TABLET (FP) PO SCH ×2 (09:56→21:03)
[2018-03-15] MEDS: CLOPIDOGREL BISULFATE 75 MG TABLET (FP) PO SCH (09:56)
[2018-03-15] MEDS: FINASTERIDE 5 MG TABLET (FP) PO SCH (09:56)
[2018-03-15] MEDS: CHOLECALCIFEROL (VITAMIN D3) 1,000 UNIT TABLET (FP) PO SCH (09:57)
--- NOTE | 2018-03-15 10:53 | PN ---
Physical Exam: SUBJECTIVE: Patient seen and examined. Pt. endorses shortness of breath when walking to bathroom but otherwise has improved breathing since yesterday. Pt. denies CP, abdominal pain, fever, chills or dizziness. HR was Tachycardic to 127 overnight on telemetry strip. OBJECTIVE: Vital Signs Period Temp Pulse Resp BP Sys/Eisenberg Pulse Ox Last 24 Hr 97.6 F-98.9 F 88-96 15-30 86-110/52-78 96-97 GENERAL: The patient is awake, alert, and fully oriented, lying in bed in no acute distress. LUNGS: Breath sounds equal, clear to auscultation bilaterally and anteriorly , no wheezes, no crackles, no accessory muscle use. HEART: Irregular rate and rhythm, S1, S2 without murmur ABDOMEN: Soft, nontender, nondistended, normoactive bowel sounds, no guarding, no rebound,tympanic. Holt draining translucent brown colored urine EXTREMITIES: warm, well-perfused, no edema, no calf tenderness. PSYCH: Normal mood, normal affect. SKIN: Warm, dry, normal turgor Laboratory Results - last 24 hr 03/14/18 03/14/18 03/14/18 05:45 11:25 17:11 WBC RBC Hgb Hct MCV MCH MCHC RDW Plt Count MPV Sodium Potassium Chloride Carbon Dioxide Anion Gap BUN Creatinine Creat Clearance w eGFR POC Glucometer [phone] Random Glucose Calcium Phosphorus Magnesium 03/15/18 03/15/18 05:30 05:30 WBC 10.5 H RBC 4.40 Hgb 12.5 Hct 38.4 MCV 87.2 MCH 28.3 MCHC 32.5 RDW 17.4 H Plt Count 243 MPV 8.0 Sodium 138 Potassium 4.4 Chloride 99 Carbon Dioxide 31 Anion Gap 8 BUN 59 H Creatinine 1.9 H Creat Clearance w eGFR 34.64 POC Glucometer Random Glucose 137 H Calcium 8.9 Phosphorus 3.4 Magnesium 2.4 Active Medications Current Medications Allopurinol (Zyloprim -) 100 mg PO DAILY [facility] Last Admin: 03/15/18 09:56 Dose: 100 mg Cholecalciferol (Vitamin D3 -) 2,000 unit PO DAILY [facility] Last Admin: 03/15/18 09:57 Dose: 2,000 unit Clopidogrel Bisulfate (Plavix -) 75 mg PO DAILY [facility] Last Admin: 03/15/18 09:56 Dose: 75 mg Docusate Sodium (Colace -) 100 mg PO BID PRN PRN Reason: CONSTIPATION Escitalopram Oxalate (Lexapro -) 10 mg PO DAILY [facility] Last Admin: 03/15/18 09:56 Dose: 10 mg Finasteride (Proscar -) 5 mg PO DAILY [facility] Last Admin: 03/15/18 09:56 Dose: 5 mg Furosemide (Lasix Injection -) 80 mg IVPUSH BID@0600,1400 [facility] Last Admin: 03/15/18 06:05 Dose: 80 mg Insulin Aspart (Novolog Vial Sliding Scale -) 1 vial SQ ACHS [facility]; Protocol Last Admin: 03/15/18 06:05 Dose: Not Given Metolazone (Zaroxolyn -) 5 mg PO ONCE ONE Stop: 03/15/18 13:01 Metoprolol Tartrate (Lopressor -) 25 mg PO BID [facility] Last Admin: 03/15/18 09:56 Dose: 25 mg Rosuvastatin Calcium (Crestor -) 10 mg PO HS [facility] Last Admin: 03/14/18 21:17 Dose: 10 mg Tamsulosin HCl (Flomax -) 0.4 mg PO BID@0830,2200 [facility] Last Admin: 03/15/18 09:56 Dose: 0.4 mg Zolpidem Tartrate (Ambien -) 5 mg PO HS PRN PRN Reason: INSOMNIA ASSESSMENT/PLAN: A 78 year old with a PMH of CHF, CAD, s/p stent in 2017, CKD, HLD, pre diabetes , who presents to the hospital with worsening SOB x 3 days. He is admitted for CHF exacerbation and hypotension. #Cardiovascular -Acute on chronic CHF exacerbation IVPB Lasix 80mg BID strict I&O(Total of 4960ml net output), daily weights( 82.554kg) monitor BP, baseline systolic 115-120 hold BP medications except Metoprolol which will be given at half dose(Losartan 50mg, Torsemide 40mg daily and Spironolactone 25 mg daily) as BP has been low since admission. Changed parameters of holding Metoprolol to 90 SBP as pt. has been having low BP throughout hospital course. troponins trended- peaked at 0.21, no new ekg changes, no ST elevations or depressions Metalozone 5mg given, additional 2.5mg to given at 1 pm (03/14/18) and (03/15/18) -for HLD c/w Crestor #Pulmonology -Shortness of Breath 2/2 hypervolemia 2/2 acute CHF exacerbation CXR(03/15/18) shows minimal improvement w/ b/l pulmonary and pleural changes c/w diuresis c/w supplemental o2 to keep spO2 above 90% #Renal -Urinary retention 2/2 hematuria Holt placed 03/11/18- draining translucent brown colored urine Urology consult appreciated- c/w Holt for 1 week (Day 07/22) will need CMG as outpatient. hold nephrotoxic substances; Losartan 50 mg daily (home dose) and Metformin 500 mg PO HS -BPH c/w Finasteride 5mg daily and Tamsulosin 0.4 mg daily -PACO monitor BMP Cr. 1.9 (03/15/18) trending up hold fluids as actively diuresing nephrology onboard #Endocrinology -DM2 c/w insulin sliding scale #DVT PPx. -c/w Xarelto -c/w SCDs -c/w Plavix -encourage OOB ambulation #Dispo -ICU Visit type - Emergency Visit Emergency Visit: Yes ED Registration Date: 03/10/18 Care time: The patient presented to the Emergency Department on the above date and was hospitalized for further evaluation of their emergent condition. - New Patient This patient is new to me today: No - Critical Care Critical Care patient: No - Discharge Referral Referred to [facility] Med P.C.: No
--- NOTE | 2018-03-15 11:57 | PN ---
Progress Note (short form) - Note Progress Note: s: no cp palps dizzy; sob a little better o: Vital Signs Period Temp Pulse Resp BP Sys/Eisenberg Pulse Ox Last 24 Hr 97.6 F-98.9 F 88-96 15-30 86-110/52-78 96-97 Constitutional: Yes: Well Nourished, No Distress, Calm Eyes: Yes: Conjunctiva Clear Neck: Yes: Supple, Trachea Midline Respiratory: Yes: Regular, On Nasal O2, Orthopnea, Rales (bilateral) Gastrointestinal: Yes: Normal Bowel Sounds, Soft Cardiovascular: Yes: Regular Rate and Rhythm JVD: Yes Heart Sounds: Yes: S1, S2 Edema: Yes Edema: no Psychiatric: Yes: Alert, Oriented no jaundice diaphoresis Current Medications Generic Name Dose Route Start Last Admin Trade Name Freq PRN Reason Stop Dose Admin Allopurinol 100 mg 03/14/18 10:00 03/15/18 09:56 Zyloprim - PO 100 mg DAILY [facility] Administration Cholecalciferol 2,000 unit 03/14/18 10:00 03/15/18 09:57 Vitamin D3 - PO 2,000 unit DAILY [facility] Administration Clopidogrel Bisulfate 75 mg 03/14/18 10:00 03/15/18 09:56 Plavix - PO 75 mg DAILY [facility] Administration Docusate Sodium 100 mg 03/13/18 13:46 Colace - PO BID PRN CONSTIPATION Escitalopram Oxalate 10 mg 03/14/18 10:00 03/15/18 09:56 Lexapro - PO 10 mg DAILY [facility] Administration Finasteride 5 mg 03/14/18 10:00 03/15/18 09:56 Proscar - PO 5 mg DAILY [facility] Administration Furosemide 80 mg 03/15/18 06:00 03/15/18 06:05 Lasix Injection - IVPUSH 80 mg BID@0600,1400 [facility] Administration Insulin Aspart 1 vial 03/14/18 07:00 03/15/18 06:05 Novolog Vial Sliding Scale - SQ Not Given ACHS [facility] Protocol Metolazone 5 mg 03/15/18 13:00 Zaroxolyn - PO 03/15/18 13:01 ONCE ONE Metoprolol Tartrate 25 mg 03/14/18 11:33 03/15/18 09:56 Lopressor - PO 25 mg BID [facility] Administration Rosuvastatin Calcium 10 mg 03/14/18 22:00 03/14/18 21:17 Crestor - PO 10 mg HS [facility] Administration Tamsulosin HCl 0.4 mg 03/14/18 08:30 03/15/18 09:56 Flomax - PO 0.4 mg BID@0830,2200 [facility] Administration Zolpidem Tartrate 5 mg 03/13/18 13:01 Ambien - PO HS PRN INSOMNIA CBC, BMP 03/15/18 05:30 03/15/18 05:30 echo with definity 07/2017 dilated LV, EF20-25%, with apical AK, HK of inf and lat [place], grade II diastolic dysfunction, cath 04/2017 MLM 80-90% with severe calc, pLAD [employer] fills with collat from LCX and RCA. EF 15% dyskinetic apex, s/p LM PCI tele: afib, rate 90s cxr: slight improvement a/p 77M h/o HTN, HLD, DM, chronic systolic HF p/w shortness of breath for two weeks acute on chronic systolic HF s/p ICD - symptoms concerning for CHF exacerbation, BNP 8000 - at home was on torsemide 80 mg BID - continue bb as tolerated, hold losartan and spironolactone in setting of PCAO - cont lasix 80 iv bid with metolazone 5 today as well - monitor Cr, weights, I/O, chem7 CAD s/p LM stent 04/2017 - cont statin, plavix, metoprolol pos troponin -borderline trop elevation with flat trend and nl ck, not c/w acs afib - restarted on metoprolol 25 mg BID with improved rates, uptitrate as tolerated however has had low BP - cont xarelto PACO - may be cardiorenal, obstructive - improving with diuresis, curtis placement - renal ultrasound, no obstruction - Cr 1.4 in clinic 12/2017 - appreciate nephrology, urology recs HTN - low BP as above HLD - cont statin DM - manage per primary
--- NOTE | 2018-03-15 12:13 | PN ---
Progress Note, Physician History of Present Illness: Pt is tierd this AM, woke up early ( secondary to ICU activities) Pt is breathing better at night; still with ROJO. Pt w/o CP, palpitations, abd pain, N, V. + BM today. Pt is tolerating Holt cath. Pt's ICU nurse at beside. Pt was seen and examined in ICU - Current Medication List Current Medications: Active Medications Allopurinol (Zyloprim -) 100 mg PO DAILY [facility] Last Admin: 03/15/18 09:56 Dose: 100 mg Cholecalciferol (Vitamin D3 -) 2,000 unit PO DAILY [facility] Last Admin: 03/15/18 09:57 Dose: 2,000 unit Clopidogrel Bisulfate (Plavix -) 75 mg PO DAILY [facility] Last Admin: 03/15/18 09:56 Dose: 75 mg Docusate Sodium (Colace -) 100 mg PO BID PRN PRN Reason: CONSTIPATION Escitalopram Oxalate (Lexapro -) 10 mg PO DAILY [facility] Last Admin: 03/15/18 09:56 Dose: 10 mg Finasteride (Proscar -) 5 mg PO DAILY [facility] Last Admin: 03/15/18 09:56 Dose: 5 mg Furosemide (Lasix Injection -) 80 mg IVPUSH BID@0600,1400 [facility] Last Admin: 03/15/18 06:05 Dose: 80 mg Insulin Aspart (Novolog Vial Sliding Scale -) 1 vial SQ ACHS [facility]; Protocol Last Admin: 03/15/18 12:01 Dose: Not Given Metolazone (Zaroxolyn -) 5 mg PO ONCE ONE Stop: 03/15/18 13:01 Metoprolol Tartrate (Lopressor -) 25 mg PO BID [facility] Last Admin: 03/15/18 09:56 Dose: 25 mg Rosuvastatin Calcium (Crestor -) 10 mg PO HS [facility] Last Admin: 03/14/18 21:17 Dose: 10 mg Tamsulosin HCl (Flomax -) 0.4 mg PO BID@0830,2200 [facility] Last Admin: 03/15/18 09:56 Dose: 0.4 mg Zolpidem Tartrate (Ambien -) 5 mg PO HS PRN PRN Reason: INSOMNIA - Objective Vital Signs: Vital Signs Temperature 98.9 F 03/15/18 06:00 Pulse Rate 92 H 03/15/18 08:00 Respiratory Rate 30 H 03/15/18 08:00 Blood Pressure 101/76 03/15/18 08:00 O2 Sat by Pulse Oximetry (%) 97 03/15/18 09:00 weight is down 4 lbs Constitutional: Yes: No Distress, Calm Cardiovascular: Yes: Regular Rate and Rhythm, S1, S2 Respiratory: Yes: Regular, Other (crackles at bases bilat and 1/4 up) Gastrointestinal: Yes: Normal Bowel Sounds, Soft. No: Tenderness Genitourinary: Yes: Holt Present (with clear urine), Other Edema: Yes Edema: LLE: Trace, RLE: Trace Neurological: Yes: Alert, Oriented Labs: CBC, BMP 03/15/18 05:30 03/15/18 05:30 - ....Imaging Chest X-ray: Report Reviewed, Image Reviewed Problem List - Problems (1) Acute systolic CHF (congestive heart failure) Code(s): I50.21 - ACUTE SYSTOLIC (CONGESTIVE) HEART FAILURE (2) Elevated troponin I level Code(s): R74.8 - ABNORMAL LEVELS OF OTHER SERUM ENZYMES (3) Hypotension Code(s): I95.9 - HYPOTENSION, UNSPECIFIED (4) PACO (acute kidney injury) Code(s): N17.9 - ACUTE KIDNEY FAILURE, UNSPECIFIED (5) CRF (chronic renal failure) Code(s): N18.9 - CHRONIC KIDNEY DISEASE, UNSPECIFIED (6) Hypercholesteremia Code(s): E78.00 - PURE HYPERCHOLESTEROLEMIA, UNSPECIFIED (7) Hypertension Code(s): I10 - ESSENTIAL (PRIMARY) HYPERTENSION (8) Pleural effusion Code(s): J90 - PLEURAL EFFUSION, NOT ELSEWHERE CLASSIFIED (9) CAD (coronary artery disease) Code(s): I25.10 - ATHSCL HEART DISEASE OF [place] CORONARY ARTERY W/O ANG PCTRS (10) AICD (automatic cardioverter/defibrillator) present Code(s): Z95.810 - PRESENCE OF AUTOMATIC (IMPLANTABLE) CARDIAC DEFIBRILLATOR (11) PAF (paroxysmal atrial fibrillation) Code(s): I48.0 - PAROXYSMAL ATRIAL FIBRILLATION (12) Urinary retention Code(s): R33.9 - RETENTION OF URINE, UNSPECIFIED (13) Hematuria Code(s): R31.9 - HEMATURIA, UNSPECIFIED Assessment/Plan Admitted to ICU. Serial CE -stable. slightly down ICU/CCM, Cardio, Renal, consults are appreciated Lasix IV was changed from drip to IVP (BID), good UO; minimal trend up in Creatinine -to monitor s/p Holt placement (secondary to UR), Flomax was increased. Home med on hold at admission: Losartan, Spironolactone, Torsemide, Metformin. BGM with Novolog coverage. PT was restarted on Metoprolol, low dose, as BP allows it. AM labs. PT Pt's case was d/w pt's ICU nurse. Time for managing pt's care: over 35 minutes.
[2018-03-15] MEDS ORDERED: METOLAZONE 5 MG TABLET PO ONE (13:00)
--- NOTE | 2018-03-15 13:09 | PN ---
Progress Note (short form) - Note Progress Note: urology note. pt. with bph with luts ,renal sono.-medical renal disease and large prostate curtis patent urine clear no clots. pt. will need cysto and cmg when men. ok.
--- NOTE | 2018-03-15 16:37 | PN ---
Progress Note (short form) - Note Progress Note: Renal follow up for PACO Pt seen and examined in the ICU feels better no sob, cp, abd pain making urine urine now clear Vital Signs Temperature 97.6 F 03/15/18 14:00 Pulse Rate 103 H 03/15/18 14:00 Respiratory Rate 23 03/15/18 14:00 Blood Pressure 105/73 03/15/18 14:00 O2 Sat by Pulse Oximetry (%) 97 03/15/18 09:00 Intake & Output 03/12/18 03/13/18 03/14/18 03/15/18 23:59 23:59 23:59 23:59 Intake Total 60 1080 1115 300 Output Total 2550 2000 2450 1400 Balance -2490 -920 -1335 -1100 Weight 84.368 kg 82.826 kg 84.567 kg 82.554 kg NAD awake and alert RRR, No M/R + rales right lung base soft NT/ND no Le edema CBC, BMP 03/15/18 05:30 03/15/18 05:30 Current Medications Allopurinol (Zyloprim -) 100 mg PO DAILY [facility] Last Admin: 03/15/18 09:56 Dose: 100 mg Cholecalciferol (Vitamin D3 -) 2,000 unit PO DAILY [facility] Last Admin: 03/15/18 09:57 Dose: 2,000 unit Clopidogrel Bisulfate (Plavix -) 75 mg PO DAILY [facility] Last Admin: 03/15/18 09:56 Dose: 75 mg Docusate Sodium (Colace -) 100 mg PO BID PRN PRN Reason: CONSTIPATION Escitalopram Oxalate (Lexapro -) 10 mg PO DAILY [facility] Last Admin: 03/15/18 09:56 Dose: 10 mg Finasteride (Proscar -) 5 mg PO DAILY [facility] Last Admin: 03/15/18 09:56 Dose: 5 mg Furosemide (Lasix Injection -) 80 mg IVPUSH BID@0600,1400 [facility] Last Admin: 03/15/18 14:21 Dose: 80 mg Insulin Aspart (Novolog Vial Sliding Scale -) 1 vial SQ ACHS [facility]; Protocol Last Admin: 03/15/18 12:01 Dose: Not Given Metoprolol Tartrate (Lopressor -) 25 mg PO BID [facility] Last Admin: 03/15/18 09:56 Dose: 25 mg Rosuvastatin Calcium (Crestor -) 10 mg PO HS [facility] Last Admin: 03/14/18 21:17 Dose: 10 mg Tamsulosin HCl (Flomax -) 0.4 mg PO BID@0830,2200 [facility] Last Admin: 03/15/18 09:56 Dose: 0.4 mg 78 year old gentleman with Hx of CHF, Hypertension, HLD, DM who presented with SOB and admitted for CHF exacerbation with PACO. #PACO on ? 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 obstruction/urinary retention #CHF Exacerbation #BPH with ? retention #Gross hematuria following catheter placement #Renal Cysts Renal function stable thus far Continue Bolous Lasix and Metolazone Trend renal function/electrolytes and weights curtis in place with clear urine Efrain Casey DO
[2018-03-15] MEDS ORDERED: PT OWN MED DRAWER 7, Y5N ONE (20:49)
[2018-03-15] MEDS: ROSUVASTATIN CA 10 MG TABLET (FP) PO SCH (21:04)
[2018-03-16] MEDS: FUROSEMIDE 40 MG/4 ML INJECTABLE VIAL IVPUSH SCH ×2 (05:51→13:53)
[2018-03-16] MEDS: INSULIN SLIDING SCALE (NOVOLOG) 1 VIAL SQ SCH ×4 (05:59→21:29)
[2018-03-16 06:04] LABS: HEMATOCRIT 37.3 % (35.4-49); HEMOGLOBIN 12.1 GM/dL (11.7-16.9); MCH 28.2 pg (25.7-33.7); MCHC 32.4 g/dl (32.0-35.9); MEAN CELL VOLUME 86.8 fl (80-96); MEAN PLT VOLUME 7.5 fl (7.5-11.1); PLATELET COUNT 228 K/MM3 (134-434); RBC 4.29 M/mm3 (4.00-5.60); RDW 17.3 % (11.9-15.9); WHITE BLOOD COUNT 10.7 K/mm3 (4.0-10.0)
[2018-03-16 06:44] LABS: ALBUMIN 3.2 g/dl (3.4-5.0); ANION GAP 9 MMOL/L (8-16); BILIRUBIN,TOTAL 0.6 mg/dL (0.2-1.0); BLOOD UREA NITROGEN 57 mg/dL (7-18); CALCIUM 9.1 mg/dL (8.5-10.1); CHLORIDE 96 mmol/L (98-107); CO2 32 mmol/L (21-32); CREATININE 1.8 mg/dL (0.7-1.3); GLUCOSE,RANDOM 147 mg/dL (74-106); MAGNESIUM 2.2 mg/dL (1.8-2.4); POTASSIUM 3.7 mmol/L (3.5-5.1); SGOT/AST 9 U/L (15-37); SGPT/ALT 13 U/L (12-78); SODIUM 137 mmol/L (136-145); TOT PROT 6.7 g/dl (6.4-8.2)
[2018-03-16 06:45] LABS: ALK PHOS 53 U/L (45-117)
[2018-03-16] MEDS: TAMSULOSIN HCL 0.4 MG CAP PO SCH ×2 (08:17→21:27)
--- NOTE | 2018-03-16 08:28 | PN ---
Progress Note, Physician Chief Complaint: in bed NAD VSS afebrile no new c/o; BP borderline low; meds adjusted; - Current Medication List Current Medications: Active Medications Allopurinol (Zyloprim -) 100 mg PO DAILY [facility] Last Admin: 03/15/18 09:56 Dose: 100 mg Cholecalciferol (Vitamin D3 -) 2,000 unit PO DAILY [facility] Last Admin: 03/15/18 09:57 Dose: 2,000 unit Clopidogrel Bisulfate (Plavix -) 75 mg PO DAILY [facility] Last Admin: 03/15/18 09:56 Dose: 75 mg Docusate Sodium (Colace -) 100 mg PO BID PRN PRN Reason: CONSTIPATION Escitalopram Oxalate (Lexapro -) 10 mg PO DAILY [facility] Last Admin: 03/15/18 09:56 Dose: 10 mg Finasteride (Proscar -) 5 mg PO DAILY [facility] Last Admin: 03/15/18 09:56 Dose: 5 mg Furosemide (Lasix Injection -) 80 mg IVPUSH BID@0600,1400 [facility] Last Admin: 03/16/18 05:51 Dose: 80 mg Insulin Aspart (Novolog Vial Sliding Scale -) 1 vial SQ [facility]; Protocol Last Admin: 03/16/18 05:59 Dose: Not Given Metoprolol Tartrate (Lopressor -) 25 mg PO BID [facility] Last Admin: 03/15/18 21:03 Dose: 25 mg Rosuvastatin Calcium (Crestor -) 10 mg PO HS [facility] Last Admin: 03/15/18 21:04 Dose: 10 mg Tamsulosin HCl (Flomax -) 0.4 mg PO BID@0830,2200 [facility] Last Admin: 03/16/18 08:17 Dose: 0.4 mg - Objective Vital Signs: Vital Signs Temperature 97.4 F L 03/16/18 06:00 Pulse Rate 86 03/16/18 06:00 Respiratory Rate 22 03/16/18 06:00 Blood Pressure 96/73 03/16/18 06:00 O2 Sat by Pulse Oximetry (%) 97 03/15/18 21:00 Constitutional: Yes: No Distress, Calm Eyes: Yes: Conjunctiva Clear HENT: Yes: Atraumatic Neck: Yes: Supple Cardiovascular: Yes: Regular Rate and Rhythm Respiratory: Yes: Diminished Gastrointestinal: Yes: Soft. No: Distention Genitourinary: No: CVA Tenderness - Left, CVA Tenderness - Right Musculoskeletal: No: Joint Stiffness, Joint Swelling Extremities: No: Cold, Cool, Cyanosis Edema: No Integumentary: No: Rash, Venous Stasis Changes Neurological: Yes: WNL, Alert, Oriented ...Motor Strength: WNL Psychiatric: Yes: WNL, Alert, Oriented. No: Agitated, Suicidal Ideation Labs: CBC, BMP 03/16/18 05:30 03/16/18 05:30 - ....Imaging Other: Report Reviewed Assessment/Plan 78 YOM admitted to ICU Acute on Chronic Systolic Heart Failure Atrial Fibrillation, CAD +Troponins likely Demand Ischemia Acute on Chronic Renal Failure HTN DM Hyperlipidemia Hematuria - continue lasix - monitor urine output, creatinine - keep net negative - daily weights - rate controlled - resume anticoagulation - O2 to keep SpO2 >90% f/w pt and staff
[2018-03-16] MEDS: METOPROLOL TARTRATE 25 MG TABLET (FP) PO SCH ×2 (09:33→21:27)
[2018-03-16] MEDS: ESCITALOPRAM OXALATE 10 MG TABLET (FP) PO SCH (09:33)
[2018-03-16] MEDS: ALLOPURINOL 100 MG TABLET (FP) PO SCH (09:33)
[2018-03-16] MEDS: CLOPIDOGREL BISULFATE 75 MG TABLET (FP) PO SCH (09:34)
[2018-03-16] MEDS: CHOLECALCIFEROL (VITAMIN D3) 1,000 UNIT TABLET (FP) PO SCH (09:34)
[2018-03-16] MEDS: FINASTERIDE 5 MG TABLET (FP) PO SCH (09:34)
--- NOTE | 2018-03-16 10:10 | PN ---
Teaching Attending Note Name of Resident: Yeni Mohr ATTENDING PHYSICIAN STATEMENT I saw and evaluated the patient. I reviewed the resident's note and discussed the case with the resident. I agree with the resident's findings and plan as documented. SUBJECTIVE: Pt seen an d examined in the ICU. Breathing continues to improve. Continues to diurese well. OBJECTIVE: Vital Signs Period Temp Pulse Resp BP Sys/Eisenberg Pulse Ox Last 24 Hr 97.4 F-97.6 F 86-104 22-28 93-105/52-76 97-97 Intake & Output 03/13/18 03/14/18 03/15/18 03/16/18 23:59 23:59 23:59 23:59 Intake Total 1080 1115 2220 300 Output Total 1999 2450 3250 800 Balance -920 -1335 -1030 -500 Weight 82.826 kg 84.567 kg 82.554 kg 81.391 kg Gen: less tachypneic Heart: irregular Lung: scattered basilar rhonchi Abd: soft, nontender Ext: no edema CBC, BMP 03/16/18 05:30 03/16/18 05:30 Active Medications Allopurinol (Zyloprim -) 100 mg PO DAILY [facility] Last Admin: 03/16/18 09:33 Dose: 100 mg Cholecalciferol (Vitamin D3 -) 2,000 unit PO DAILY [facility] Last Admin: 03/16/18 09:34 Dose: 2,000 unit Clopidogrel Bisulfate (Plavix -) 75 mg PO DAILY [facility] Last Admin: 03/16/18 09:34 Dose: 75 mg Docusate Sodium (Colace -) 100 mg PO BID PRN PRN Reason: CONSTIPATION Escitalopram Oxalate (Lexapro -) 10 mg PO DAILY [facility] Last Admin: 03/16/18 09:33 Dose: 10 mg Finasteride (Proscar -) 5 mg PO DAILY [facility] Last Admin: 03/16/18 09:34 Dose: 5 mg Furosemide (Lasix Injection -) 80 mg IVPUSH BID@0600,1400 [facility] Last Admin: 03/16/18 05:51 Dose: 80 mg Insulin Aspart (Novolog Vial Sliding Scale -) 1 vial SQ [facility]; Protocol Last Admin: 03/16/18 05:59 Dose: Not Given Metolazone (Zaroxolyn -) 5 mg PO ONCE ONE Stop: 03/16/18 13:01 Metoprolol Tartrate (Lopressor -) 25 mg PO BID [facility] Last Admin: 03/16/18 09:33 Dose: 25 mg Potassium Chloride (Potassium Chloride Oral Liquid) 40 meq PO ONCE ONE Stop: 03/16/18 10:31 Rosuvastatin Calcium (Crestor -) 10 mg PO HS [facility] Last Admin: 03/15/18 21:04 Dose: 10 mg Tamsulosin HCl (Flomax -) 0.4 mg PO BID@0830,2200 [facility] Last Admin: 03/16/18 08:17 Dose: 0.4 mg ASSESSMENT AND PLAN: Acute on Chronic Systolic Heart Failure Atrial Fibrillation CAD +Troponins likely Demand Ischemia Acute on Chronic Renal Failure HTN DM Hyperlipidemia Hematuria - continue lasix - monitor urine output, creatinine - keep net negative - daily weights - rate controlled - resume anticoagulation - O2 to keep SpO2 >90% - can monitor on telemetry
[2018-03-16] MEDS ORDERED: POTASSIUM CHLORIDE ORAL LIQUID 20 MEQ/15 ML PO ONE (10:30)
--- NOTE | 2018-03-16 11:11 | PN ---
Physical Exam: SUBJECTIVE: Patient seen and examined OBJECTIVE: Vital Signs Period Temp Pulse Resp BP Sys/Eisenberg Pulse Ox Last 24 Hr 97.4 F-97.6 F 86-104 22-28 93-105/52-76 97-97 GENERAL: The patient is awake, alert, and fully oriented, in no acute distress. HEAD: Normal with no signs of trauma. EYES: PERRL, extraocular movements intact, sclera anicteric, conjunctiva clear. No ptosis. ENT: Ears normal, nares patent, oropharynx clear without exudates, moist mucous membranes. NECK: Trachea midline, full range of motion, supple. LUNGS: Breath sounds equal, clear to auscultation bilaterally, no wheezes, no crackles, no accessory muscle use. HEART: Regular rate and rhythm, S1, S2 without murmur, rub or gallop. ABDOMEN: Soft, nontender, nondistended, normoactive bowel sounds, no guarding, no rebound, no hepatosplenomegaly, no masses. EXTREMITIES: 2+ pulses, warm, well-perfused, no edema. NEUROLOGICAL: Cranial nerves II through XII grossly intact. Normal speech, gait not observed. PSYCH: Normal mood, normal affect. SKIN: Warm, dry, normal turgor, no rashes or lesions noted Laboratory Results - last 24 hr 03/14/18 03/15/18 03/15/18 21:22 05:28 11:08 WBC RBC Hgb Hct MCV MCH MCHC RDW Plt Count MPV Sodium Potassium Chloride Carbon Dioxide Anion Gap BUN Creatinine Creat Clearance w eGFR POC Glucometer [phone] [phone] Random Glucose Calcium Magnesium Total Bilirubin AST ALT Alkaline Phosphatase Total Protein Albumin 03/15/18 03/15/18 03/16/18 17:07 21:06 05:30 WBC 10.7 H RBC 4.29 Hgb 12.1 Hct 37.3 MCV 86.8 MCH 28.2 MCHC 32.4 RDW 17.3 H Plt Count 228 MPV 7.5 Sodium Potassium Chloride Carbon Dioxide Anion Gap BUN Creatinine Creat Clearance w eGFR POC Glucometer [phone] Random Glucose Calcium Magnesium Total Bilirubin AST ALT Alkaline Phosphatase Total Protein Albumin 03/16/18 03/16/18 05:30 05:48 WBC RBC Hgb Hct MCV MCH MCHC RDW Plt Count MPV Sodium 137 Potassium 3.7 Chloride 96 L Carbon Dioxide 32 Anion Gap 9 BUN 57 H Creatinine 1.8 H Creat Clearance w eGFR 36.87 POC Glucometer [phone] Random Glucose 147 H Calcium 9.1 Magnesium 2.2 Total Bilirubin 0.6 AST 9 L ALT 13 Alkaline Phosphatase 53 Total Protein 6.7 Albumin 3.2 L Active Medications Generic Name Dose Route Start Last Admin Trade Name Freq PRN Reason Stop Dose Admin Allopurinol 100 mg 03/14/18 10:00 03/16/18 09:33 Zyloprim - PO 100 mg DAILY [facility] Administration Cholecalciferol 2,000 unit 03/14/18 10:00 03/16/18 09:34 Vitamin D3 - PO 2,000 unit DAILY [facility] Administration Clopidogrel Bisulfate 75 mg 03/14/18 10:00 03/16/18 09:34 Plavix - PO 75 mg DAILY [facility] Administration Docusate Sodium 100 mg 03/13/18 13:46 Colace - PO BID PRN CONSTIPATION Escitalopram Oxalate 10 mg 03/14/18 10:00 03/16/18 09:33 Lexapro - PO 10 mg DAILY [facility] Administration Finasteride 5 mg 03/14/18 10:00 03/16/18 09:34 Proscar - PO 5 mg DAILY [facility] Administration Furosemide 80 mg 03/15/18 06:00 03/16/18 05:51 Lasix Injection - IVPUSH 80 mg BID@0600,1400 [facility] Administration Insulin Aspart 1 vial 03/14/18 07:00 03/16/18 05:59 Novolog Vial Sliding Scale - SQ Not Given ACHS [facility] Protocol Metolazone 5 mg 03/16/18 13:00 Zaroxolyn - PO 03/16/18 13:01 ONCE ONE Metoprolol Tartrate 25 mg 03/14/18 11:33 03/16/18 09:33 Lopressor - PO 25 mg BID [facility] Administration Rosuvastatin Calcium 10 mg 03/14/18 22:00 03/15/18 21:04 Crestor - PO 10 mg HS [facility] Administration Tamsulosin HCl 0.4 mg 03/14/18 08:30 03/16/18 08:17 Flomax - PO 0.4 mg BID@0830,2200 [facility] Administration ASSESSMENT/PLAN: 78 year old male with a medical history of hypertension, CAD, CHF, CKD, who presented with shortness of breath found have acute exacerbation of heart failure with acute on chronic kidney injury. #Acute on chronic systolic heart failure: improved -off lasix drip -cont lasix 80mgIV bid -metolazone as per cardio -stricgt I/Os; daily weights -appreciate cardio #Acute on chronic renal failure: improving -creatinine 1.8 today -may be sec to cardio renal syndrome -modesta renal #Atrial fibrillation: rate controlled -metoprolol 25mg bid -cont AC #Elevated troponins; resolved -likely secondary to demand ischemia #CAD: -cont clopidogrel, statin BB #DM: -cont insulin SS -BGM ACHS #hematuria: resolving; sec to traumatic curtis; on AC -curtis with clear urine #hx of BPH; -seen by urology; no clots; will see in office for cystoscopy -cont finesteride/flomax; urology would like patient on antibiotics before office visit for cystoscopy #HTN #HLD FEN: Fluids: restrict Electrolytes: replace; Nutrition : cardiac diet DVT: ppl; on AC Disposition: stable to transfer to tele Visit type - Emergency Visit Emergency Visit: Yes ED Registration Date: 03/10/18 Care time: The patient presented to the Emergency Department on the above date and was hospitalized for further evaluation of their emergent condition. - New Patient This patient is new to me today: Yes Date on this admission: 03/16/18 - Critical Care Critical Care patient: Yes Total Critical Care Time (in minutes): 40 Critical Care Statement: The care of this patient involved high complexity decision making to prevent further life threatening deterioration of the patient 's condition and/or to evaluate & treat vital organ system(s) failure or risk of failure.
--- NOTE | 2018-03-16 11:33 | PN ---
Progress Note (short form) - Note Progress Note: s: no cp palps dizzy; sob a little better o: Vital Signs (72 hours) 03/13/18 03/13/18 03/13/18 13:00 15:00 17:00 Temperature 97.6 F Pulse Rate 95 H 96 H 99 H Respiratory 18 17 18 Rate Blood Pressure 101/79 100/73 109/75 O2 Sat by Pulse Oximetry (%) 03/13/18 03/13/18 03/13/18 19:00 20:31 21:00 Temperature 98.1 F Pulse Rate 90 96 H Respiratory 20 26 H Rate Blood Pressure 127/82 111/84 O2 Sat by Pulse 96 Oximetry (%) 03/14/18 03/14/18 03/14/18 00:00 02:00 04:00 Temperature 97.8 F Pulse Rate 94 H 89 90 Respiratory 23 17 18 Rate Blood Pressure 107/81 109/75 105/79 O2 Sat by Pulse Oximetry (%) 03/14/18 03/14/18 03/14/18 06:00 08:00 09:00 Temperature 99.3 F Pulse Rate 84 100 H Respiratory 17 20 Rate Blood Pressure 95/73 97/64 O2 Sat by Pulse 96 Oximetry (%) 03/14/18 03/14/18 03/14/18 10:00 12:00 14:00 Temperature 97.3 F L 97.6 F Pulse Rate 96 H 95 H 90 Respiratory 18 25 H 23 Rate Blood Pressure 104/75 100/52 104/69 O2 Sat by Pulse Oximetry (%) 03/14/18 03/14/18 03/14/18 16:00 18:00 20:00 Temperature 97.8 F Pulse Rate 95 H 96 H 95 H Respiratory 24 28 H 24 Rate Blood Pressure 110/78 101/73 104/72 O2 Sat by Pulse Oximetry (%) 03/14/18 03/14/18 03/15/18 20:35 22:00 00:00 Temperature 98.3 F Pulse Rate 90 93 H Respiratory 16 20 Rate Blood Pressure 101/70 96/61 O2 Sat by Pulse 96 Oximetry (%) 03/15/18 03/15/18 03/15/18 02:00 04:00 06:00 Temperature 98.5 F 98.9 F Pulse Rate 90 88 94 H Respiratory 20 15 30 H Rate Blood Pressure 104/66 86/69 95/71 O2 Sat by Pulse Oximetry (%) 03/15/18 03/15/18 03/15/18 08:00 09:00 10:00 Temperature 97.6 F Pulse Rate 92 H 98 H Respiratory 30 H 24 Rate Blood Pressure 101/76 102/72 O2 Sat by Pulse 97 Oximetry (%) 03/15/18 03/15/18 03/15/18 12:00 14:00 16:00 Temperature 97.6 F Pulse Rate 95 H 103 H 100 H Respiratory 26 H 23 26 H Rate Blood Pressure 95/67 105/73 101/70 O2 Sat by Pulse Oximetry (%) 03/15/18 03/15/18 03/15/18 18:00 20:00 21:00 Temperature 97.4 F L Pulse Rate 104 H 99 H Respiratory 23 24 Rate Blood Pressure 93/72 102/52 O2 Sat by Pulse 97 Oximetry (%) 03/16/18 03/16/18 03/16/18 00:00 02:00 04:00 Temperature 97.6 F Pulse Rate 96 H 92 H 91 H Respiratory 24 22 24 Rate Blood Pressure 104/75 95/71 96/67 O2 Sat by Pulse Oximetry (%) 03/16/18 03/16/18 03/16/18 06:00 08:00 09:00 Temperature 97.4 F L Pulse Rate 86 95 H Respiratory 22 23 Rate Blood Pressure 96/73 97/72 O2 Sat by Pulse 97 Oximetry (%) 03/16/18 10:00 Temperature Pulse Rate 99 H Respiratory 28 H Rate Blood Pressure 99/76 O2 Sat by Pulse Oximetry (%) Constitutional: Yes: Well Nourished, No Distress, Calm Eyes: Yes: Conjunctiva Clear Neck: Yes: Supple, Trachea Midline Respiratory: Yes: cta bl nl eff Gastrointestinal: Yes: Normal Bowel Sounds, Soft Cardiovascular: Yes: Regular Rate and Rhythm JVD: Yes Heart Sounds: Yes: S1, S2 Edema: Yes Edema: no Psychiatric: Yes: Alert, Oriented no jaundice diaphoresis Current Medications Generic Name Dose Route Start Last Admin Trade Name Freq PRN Reason Stop Dose Admin Allopurinol 100 mg 03/14/18 10:00 03/16/18 09:33 Zyloprim - PO 100 mg DAILY [facility] Administration Cholecalciferol 2,000 unit 03/14/18 10:00 03/16/18 09:34 Vitamin D3 - PO 2,000 unit DAILY [facility] Administration Clopidogrel Bisulfate 75 mg 03/14/18 10:00 03/16/18 09:34 Plavix - PO 75 mg DAILY [facility] Administration Docusate Sodium 100 mg 03/13/18 13:46 Colace - PO BID PRN CONSTIPATION Escitalopram Oxalate 10 mg 03/14/18 10:00 03/16/18 09:33 Lexapro - PO 10 mg DAILY [facility] Administration Finasteride 5 mg 03/14/18 10:00 03/16/18 09:34 Proscar - PO 5 mg DAILY [facility] Administration Furosemide 80 mg 03/15/18 06:00 03/16/18 05:51 Lasix Injection - IVPUSH 80 mg BID@0600,1400 [facility] Administration Insulin Aspart 1 vial 03/14/18 07:00 03/16/18 05:59 Novolog Vial Sliding Scale - SQ Not Given ACHS [facility] Protocol Metolazone 5 mg 03/16/18 13:00 Zaroxolyn - PO 03/16/18 13:01 ONCE ONE Metoprolol Tartrate 25 mg 03/14/18 11:33 03/16/18 09:33 Lopressor - PO 25 mg BID [facility] Administration Rosuvastatin Calcium 10 mg 03/14/18 22:00 03/15/18 21:04 Crestor - PO 10 mg HS [facility] Administration Tamsulosin HCl 0.4 mg 03/14/18 08:30 03/16/18 08:17 Flomax - PO 0.4 mg BID@0830,2200 [facility] Administration CBC, BMP 03/16/18 05:30 03/16/18 05:30 echo with definity 07/2017 dilated LV, EF20-25%, with apical AK, HK of inf and lat [place], grade II diastolic dysfunction, cath 04/2017 MLM 80-90% with severe calc, pLAD [facility] fills with collat from LCX and RCA. EF 15% dyskinetic apex, s/p LM PCI tele: afib, rate 90s cxr: slight improvement a/p 77M h/o HTN, HLD, DM, chronic systolic HF p/w shortness of breath for two weeks acute on chronic systolic HF s/p ICD - symptoms concerning for CHF exacerbation, BNP 8000 - at home was on torsemide 80 mg BID - continue bb as tolerated, hold losartan and spironolactone in setting of PACO - diuresing well. cont lasix 80 iv bid with metolazone 5 today - monitor Cr, weights, I/O, chem7 CAD s/p LM stent 04/2017 - cont statin, plavix, metoprolol pos troponin -borderline trop elevation with flat trend and nl ck, not c/w acs afib - restarted on metoprolol 25 mg BID with improved rates, uptitrate as tolerated however has had low BP - cont xarelto PACO - may be cardiorenal, obstructive - improving with diuresis, curtis placement - renal ultrasound, no obstruction - Cr 1.4 in clinic 12/2017 - appreciate nephrology, urology recs HTN - low BP as above HLD - cont statin DM - manage per primary
[2018-03-16] MEDS ORDERED: INSULIN (NOVOLOG) ASPART 100 UNITS/ML 10ML VIAL ONE ×2 (11:42→21:29)
--- NOTE | 2018-03-16 11:43 | PN ---
Progress Note (short form) - Note Progress Note: Renal follow up for PACO Pt seen and examined in the ICU feels better no acute complaints sob improved but not yet at baseline no cp, abd pain, N/V/D Vital Signs Temperature 97.4 F L 03/16/18 06:00 Pulse Rate 99 H 03/16/18 10:00 Respiratory Rate 28 H 03/16/18 10:00 Blood Pressure 99/76 03/16/18 10:00 O2 Sat by Pulse Oximetry (%) 97 03/16/18 09:00 Intake & Output 03/13/18 03/14/18 03/15/18 03/16/18 23:59 23:59 23:59 23:59 Intake Total 1080 1115 2220 300 Output Total 1999 2450 3250 800 Balance -920 -1335 -1030 -500 Weight 82.826 kg 84.567 kg 82.554 kg 81.391 kg NAD awake and alert RRR, No M/R + rales right lung base soft NT/ND no Le edema CBC, BMP 03/16/18 05:30 03/16/18 05:30 Current Medications Allopurinol (Zyloprim -) 100 mg PO DAILY [facility] Last Admin: 03/16/18 09:33 Dose: 100 mg Cholecalciferol (Vitamin D3 -) 2,000 unit PO DAILY [facility] Last Admin: 03/16/18 09:34 Dose: 2,000 unit Clopidogrel Bisulfate (Plavix -) 75 mg PO DAILY [facility] Last Admin: 03/16/18 09:34 Dose: 75 mg Docusate Sodium (Colace -) 100 mg PO BID PRN PRN Reason: CONSTIPATION Escitalopram Oxalate (Lexapro -) 10 mg PO DAILY [facility] Last Admin: 03/16/18 09:33 Dose: 10 mg Finasteride (Proscar -) 5 mg PO DAILY [facility] Last Admin: 03/16/18 09:34 Dose: 5 mg Furosemide (Lasix Injection -) 80 mg IVPUSH BID@0600,1400 [facility] Last Admin: 03/16/18 05:51 Dose: 80 mg Insulin Aspart (Novolog Vial Sliding Scale -) 1 vial SQ ACHS [facility]; Protocol Last Admin: 03/16/18 05:59 Dose: Not Given Metolazone (Zaroxolyn -) 5 mg PO ONCE ONE Stop: 03/16/18 13:01 Metoprolol Tartrate (Lopressor -) 25 mg PO BID [facility] Last Admin: 03/16/18 09:33 Dose: 25 mg Rosuvastatin Calcium (Crestor -) 10 mg PO HS [facility] Last Admin: 03/15/18 21:04 Dose: 10 mg Tamsulosin HCl (Flomax -) 0.4 mg PO BID@0830,2200 [facility] Last Admin: 03/16/18 08:17 Dose: 0.4 mg 78 year old gentleman with Hx of CHF, Hypertension, HLD, DM who presented with SOB and admitted for CHF exacerbation with PACO. #PACO on ? 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 obstruction/urinary retention #CHF Exacerbation #BPH with ? retention #Gross hematuria following catheter placement #Renal Cysts Renal function stable thus far Continue current diuretics maintain curtis until pt states to ambulate urology follow up Efrain Casey DO
[2018-03-16] MEDS ORDERED: METOLAZONE 5 MG TABLET PO ONE (13:00)
[2018-03-16] MEDS ORDERED: MELATONIN 5 MG TABLETS PO ONE (20:59)
[2018-03-16] MEDS ORDERED: PT OWN MED DRAWER 7, Y5N ONE (21:21)
[2018-03-16] MEDS: ROSUVASTATIN CA 10 MG TABLET (FP) PO SCH (21:27)
[2018-03-17 05:34] LABS: BASO % 0.7 % (0-2.0); LYMPH % 13.1 % (8-40); MCH 28.5 pg (25.7-33.7); MCHC 33.3 g/dl (32.0-35.9); MEAN CELL VOLUME 85.7 fl (80-96); MEAN PLT VOLUME 7.8 fl (7.5-11.1); NEUT % 74.2 % (42.8-82.8); PLATELET COUNT 242 K/MM3 (134-434); WHITE BLOOD COUNT 9.7 K/mm3 (4.0-10.0)
[2018-03-17 06:06] LABS: ANION GAP 8 MMOL/L (8-16); BLOOD UREA NITROGEN 63 mg/dL (7-18); CALCIUM 9.2 mg/dL (8.5-10.1); CHLORIDE 94 mmol/L (98-107); CO2 35 mmol/L (21-32); GLUCOSE,RANDOM 123 mg/dL (74-106); MAGNESIUM 2.1 mg/dL (1.8-2.4); POTASSIUM 3.2 mmol/L (3.5-5.1); SGOT/AST 13 U/L (15-37); SODIUM 137 mmol/L (136-145)
[2018-03-17 06:08] LABS: ALK PHOS 49 U/L (45-117); BILIRUBIN,TOTAL 0.7 mg/dL (0.2-1.0); CREATININE 1.5 mg/dL (0.7-1.3); PHOSPHOROUS 4.1 mg/dL (2.5-4.9); SGPT/ALT 13 U/L (12-78); TOT PROT 6.4 g/dl (6.4-8.2)
[2018-03-17] MEDS: FUROSEMIDE 40 MG/4 ML INJECTABLE VIAL IVPUSH SCH ×2 (06:20→14:30)
[2018-03-17] MEDS: INSULIN SLIDING SCALE (NOVOLOG) 1 VIAL SQ SCH ×4 (06:20→21:14)
[2018-03-17] MEDS ORDERED: POTASSIUM CHLORIDE TABS 20 MEQ TABLET.ER (FP) PO ONE (07:10)
[2018-03-17] MEDS: TAMSULOSIN HCL 0.4 MG CAP PO SCH ×2 (08:08→21:06)
--- NOTE | 2018-03-17 08:30 | PN ---
Progress Note, Physician Chief Complaint: no new c/o; in ICU occasional SOB on O2; IV lasix had BM yesterday ate OK - Current Medication List Current Medications: Active Medications Allopurinol (Zyloprim -) 100 mg PO DAILY [facility] Last Admin: 03/16/18 09:33 Dose: 100 mg Cholecalciferol (Vitamin D3 -) 2,000 unit PO DAILY [facility] Last Admin: 03/16/18 09:34 Dose: 2,000 unit Clopidogrel Bisulfate (Plavix -) 75 mg PO DAILY [facility] Last Admin: 03/16/18 09:34 Dose: 75 mg Docusate Sodium (Colace -) 100 mg PO BID PRN PRN Reason: CONSTIPATION Escitalopram Oxalate (Lexapro -) 10 mg PO DAILY [facility] Last Admin: 03/16/18 09:33 Dose: 10 mg Finasteride (Proscar -) 5 mg PO DAILY [facility] Last Admin: 03/16/18 09:34 Dose: 5 mg Furosemide (Lasix Injection -) 80 mg IVPUSH BID@0600,1400 [facility] Last Admin: 03/17/18 06:20 Dose: 80 mg Insulin Aspart (Novolog Vial Sliding Scale -) 1 vial SQ [facility]; Protocol Last Admin: 03/17/18 06:20 Dose: Not Given Metoprolol Tartrate (Lopressor -) 25 mg PO BID [facility] Last Admin: 03/16/18 21:27 Dose: 25 mg Rosuvastatin Calcium (Crestor -) 10 mg PO HS [facility] Last Admin: 03/16/18 21:27 Dose: 10 mg Tamsulosin HCl (Flomax -) 0.4 mg PO BID@0830,2200 [facility] Last Admin: 03/17/18 08:08 Dose: 0.4 mg - Objective Vital Signs: Vital Signs Temperature 97.4 F L 03/17/18 08:00 Pulse Rate 84 03/17/18 08:00 Respiratory Rate 18 03/17/18 08:00 Blood Pressure 93/66 03/17/18 08:00 O2 Sat by Pulse Oximetry (%) 97 03/17/18 07:45 Constitutional: Yes: No Distress, Calm Eyes: Yes: Conjunctiva Clear HENT: Yes: Atraumatic Neck: Yes: Supple Cardiovascular: Yes: Regular Rate and Rhythm Respiratory: Yes: Diminished Gastrointestinal: Yes: Soft. No: Tenderness Genitourinary: No: CVA Tenderness - Left, CVA Tenderness - Right, Hematuria Musculoskeletal: No: Joint Stiffness, Joint Swelling Extremities: No: Cold, Cool Edema: No Integumentary: No: Rash, Venous Stasis Changes Neurological: Yes: WNL, Alert, Oriented ...Motor Strength: WNL Psychiatric: Yes: WNL, Alert, Oriented. No: Agitated, Suicidal Ideation Labs: CBC, BMP 03/17/18 05:10 03/17/18 05:10 - ....Imaging Other: Report Reviewed Assessment/Plan 78 YOM admitted to ICU Acute on Chronic Systolic Heart Failure Atrial Fibrillation, CAD +Troponins likely Demand Ischemia Acute on Chronic Renal Failure HTN DM Hyperlipidemia Hematuria - continue lasix - monitor urine output, creatinine - keep net negative - daily weights - rate controlled - resume anticoagulation - O2 to keep SpO2 >90% f/w pt and staff
[2018-03-17] MEDS: ESCITALOPRAM OXALATE 10 MG TABLET (FP) PO SCH (09:39)
[2018-03-17] MEDS: CLOPIDOGREL BISULFATE 75 MG TABLET (FP) PO SCH (09:39)
[2018-03-17] MEDS: METOPROLOL TARTRATE 25 MG TABLET (FP) PO SCH ×2 (09:39→21:05)
[2018-03-17] MEDS: ALLOPURINOL 100 MG TABLET (FP) PO SCH (09:39)
[2018-03-17] MEDS: CHOLECALCIFEROL (VITAMIN D3) 1,000 UNIT TABLET (FP) PO SCH (09:39)
[2018-03-17] MEDS: FINASTERIDE 5 MG TABLET (FP) PO SCH (09:39)
[2018-03-17] MEDS ORDERED: POTASSIUM CHLORIDE TABS 10 MEQ TABLET.ER (FP) PO ONE (10:30)
--- NOTE | 2018-03-17 11:00 | PN ---
Teaching Attending Note Name of Resident: Urbano Bates ATTENDING PHYSICIAN STATEMENT I saw and evaluated the patient. I reviewed the resident's note and discussed the case with the resident. I agree with the resident's findings and plan as documented. SUBJECTIVE: Pt seen and examined in the ICU. Breathing continues to improve. Diuresing well. OBJECTIVE: Vital Signs Period Temp Pulse Resp BP Sys/Eisenberg Pulse Ox Last 24 Hr 97.2 F-97.8 F 79-96 13-28 90-106/57-76 97-97 Intake & Output 03/14/18 03/15/18 03/16/18 03/17/18 23:59 23:59 23:59 23:59 Intake Total 1115 2220 1400 1400 Output Total 2450 3250 3700 Balance -1335 -1030 -2300 1400 Weight 84.567 kg 82.554 kg 81.391 kg 80.881 kg Gen: NAD at rest Heart: irregular Lung: basilar rales Abd: soft, nontender Ext: no edema CBC, BMP 03/18/18 05:30 03/18/18 05:30 Active Medications Allopurinol (Zyloprim -) 100 mg PO DAILY [facility] Last Admin: 03/18/18 09:20 Dose: 100 mg Cholecalciferol (Vitamin D3 -) 2,000 unit PO DAILY [facility] Last Admin: 03/18/18 09:20 Dose: 2,000 unit Clopidogrel Bisulfate (Plavix -) 75 mg PO DAILY [facility] Last Admin: 03/18/18 09:20 Dose: 75 mg Docusate Sodium (Colace -) 100 mg PO BID PRN PRN Reason: CONSTIPATION Last Admin: 03/17/18 09:42 Dose: 100 mg Escitalopram Oxalate (Lexapro -) 10 mg PO DAILY [facility] Last Admin: 03/18/18 09:20 Dose: 10 mg Finasteride (Proscar -) 5 mg PO DAILY [facility] Last Admin: 03/18/18 09:20 Dose: 5 mg Furosemide (Lasix Injection -) 80 mg IVPUSH BID@0600,1400 [facility] Last Admin: 03/18/18 06:48 Dose: 80 mg Insulin Aspart (Novolog Vial Sliding Scale -) 1 vial SQ [facility]; Protocol Last Admin: 03/18/18 06:41 Dose: Not Given Metolazone (Zaroxolyn -) 5 mg PO ONCE ONE Stop: 03/18/18 13:01 Metoprolol Tartrate (Lopressor -) 25 mg PO BID [facility] Last Admin: 03/18/18 09:20 Dose: 25 mg Rosuvastatin Calcium (Crestor -) 10 mg PO HS [facility] Last Admin: 03/17/18 21:06 Dose: 10 mg Tamsulosin HCl (Flomax -) 0.4 mg PO BID@0830,2200 [facility] Last Admin: 03/18/18 08:25 Dose: 0.4 mg ASSESSMENT AND PLAN: Acute on Chronic Systolic Heart Failure Atrial Fibrillation CAD +Troponins likely Demand Ischemia Acute on Chronic Renal Failure HTN DM Hyperlipidemia Hematuria - continue lasix - monitor urine output, creatinine - keep net negative - daily weights - rate controlled - resume anticoagulation - O2 to keep SpO2 >90% - can monitor on telemetry
--- NOTE | 2018-03-17 11:21 | PN ---
Progress Note (short form) - Note Progress Note: s: no cp palps dizzy; sob a little better o: Vital Signs Period Temp Pulse Resp BP Sys/Eisenberg Pulse Ox Last 24 Hr 97.2 F-97.8 F 79-96 13-28 90-106/57-76 97-97 Constitutional: Yes: Well Nourished, No Distress, Calm Eyes: Yes: Conjunctiva Clear Neck: Yes: Supple, Trachea Midline Respiratory: Yes: cta bl nl eff Gastrointestinal: Yes: Normal Bowel Sounds, Soft Cardiovascular: Yes: Regular Rate and Rhythm JVD: Yes Heart Sounds: Yes: S1, S2 Edema: Yes Edema: no Psychiatric: Yes: Alert, Oriented no jaundice diaphoresis Current Medications Generic Name Dose Route Start Last Admin Trade Name Freq PRN Reason Stop Dose Admin Allopurinol 100 mg 03/14/18 10:00 03/17/18 09:39 Zyloprim - PO 100 mg DAILY [facility] Administration Cholecalciferol 2,000 unit 03/14/18 10:00 03/17/18 09:39 Vitamin D3 - PO 2,000 unit DAILY [facility] Administration Clopidogrel Bisulfate 75 mg 03/14/18 10:00 03/17/18 09:39 Plavix - PO 75 mg DAILY [facility] Administration Docusate Sodium 100 mg 03/13/18 13:46 03/17/18 09:42 Colace - PO 100 mg BID PRN Administration CONSTIPATION Escitalopram Oxalate 10 mg 03/14/18 10:00 03/17/18 09:39 Lexapro - PO 10 mg DAILY [facility] Administration Finasteride 5 mg 03/14/18 10:00 03/17/18 09:39 Proscar - PO 5 mg DAILY [facility] Administration Furosemide 80 mg 03/15/18 06:00 03/17/18 06:20 Lasix Injection - IVPUSH 80 mg BID@0600,1400 [facility] Administration Insulin Aspart 1 vial 03/14/18 07:00 03/17/18 06:20 Novolog Vial Sliding Scale - SQ Not Given ACHS [facility] Protocol Metolazone 5 mg 03/17/18 13:00 Zaroxolyn - PO 03/17/18 13:01 ONCE ONE Metoprolol Tartrate 25 mg 03/14/18 11:33 03/17/18 09:39 Lopressor - PO 25 mg BID [facility] Administration Rosuvastatin Calcium 10 mg 03/14/18 22:00 09/01/18 21:27 Crestor - PO 10 mg HS [facility] Administration Tamsulosin HCl 0.4 mg 03/14/18 08:30 03/17/18 08:08 Flomax - PO 0.4 mg BID@0830,2200 [facility] Administration CBC, BMP 03/17/18 05:10 03/17/18 05:10 echo with definity 07/2017 dilated LV, EF20-25%, with apical AK, HK of inf and lat [place], grade II diastolic dysfunction, cath 04/2017 MLM 80-90% with severe calc, pLAD [facility] fills with collat from LCX and RCA. EF 15% dyskinetic apex, s/p LM PCI tele: afib, rate 90s a/p 77M h/o HTN, HLD, DM, chronic systolic HF p/w shortness of breath for two weeks acute on chronic systolic HF s/p ICD - symptoms concerning for CHF exacerbation, BNP 8000 - at home was on torsemide 80 mg BID - continue bb as tolerated, hold losartan and spironolactone in setting of PACO - diuresing well. cont lasix 80 iv bid with metolazone 5 today. replete k. - monitor Cr, weights, I/O, chem7 CAD s/p LM stent 04/2017 - cont statin, plavix, metoprolol pos troponin -borderline trop elevation with flat trend and nl ck, not c/w acs afib - restarted on metoprolol 25 mg BID with improved rates, uptitrate as tolerated however has had low BP - cont xarelto PACO - may be cardiorenal, obstructive - improving with diuresis, curtis placement - renal ultrasound, no obstruction - Cr 1.4 in clinic 12/2017 - appreciate nephrology, urology recs HTN - low BP as above HLD - cont statin DM - manage per primary can transfer to tele floor
--- NOTE | 2018-03-17 11:55 | PN ---
Physical Exam: SUBJECTIVE: Patient seen and examined. No acute events overnight. Pt. admits to feeling and breathing better. OBJECTIVE: Vital Signs Period Temp Pulse Resp BP Sys/Eisenberg Pulse Ox Last 24 Hr 97.2 F-97.8 F 79-96 13-28 90-106/57-76 97-97 GENERAL: The patient is awake, alert, and fully oriented, in no acute distress, less lethargic. LUNGS: Diffuse crackles b/l on fluid dependent positions, no accesory muscle use. HEART: Regular rate and rhythm, S1, S2 without murmur ABDOMEN: Soft, nontender, nondistended, normoactive bowel sounds, no guarding, no rebound, Holt draining red urine. EXTREMITIES: 2+ dorsal pedal pulses, warm, well-perfused, no edema, no calf tenderness. NEUROLOGICAL: Normal speech, gait not observed. PSYCH: Normal mood, normal affect. SKIN: Warm, dry, normal turgor, Laboratory Results - last 24 hr 03/16/18 03/16/18 03/16/18 11:33 17:13 21:28 WBC RBC Hgb Hct MCV MCH MCHC RDW Plt Count MPV Absolute Neuts (auto) Neutrophils % Lymphocytes % Monocytes % Eosinophils % Basophils % Nucleated RBC % Sodium Potassium Chloride Carbon Dioxide Anion Gap BUN Creatinine Creat Clearance w eGFR POC Glucometer [phone] [phone] Random Glucose Calcium Phosphorus Magnesium Total Bilirubin AST ALT Alkaline Phosphatase Total Protein Albumin 03/17/18 03/17/18 03/17/18 05:10 05:10 11:19 WBC 9.7 RBC 4.20 Hgb 12.0 Hct 36.0 MCV 85.7 MCH 28.5 MCHC 33.3 RDW 17.0 H Plt Count 242 MPV 7.8 Absolute Neuts (auto) 7.2 Neutrophils % 74.2 Lymphocytes % 13.1 D Monocytes % 10.0 Eosinophils % 2.0 D Basophils % 0.7 Nucleated RBC % 0 Sodium 137 Potassium 3.2 L Chloride 94 L Carbon Dioxide 35 H Anion Gap 8 BUN 63 H Creatinine 1.5 H Creat Clearance w eGFR 45.50 POC Glucometer [phone] Random Glucose 123 H Calcium 9.2 Phosphorus 4.1 D Magnesium 2.1 Total Bilirubin 0.7 AST 13 L D ALT 13 Alkaline Phosphatase 49 Total Protein 6.4 Albumin 3.0 L Active Medications Current Medications Allopurinol (Zyloprim -) 100 mg PO DAILY [facility] Last Admin: 03/17/18 09:39 Dose: 100 mg Cholecalciferol (Vitamin D3 -) 2,000 unit PO DAILY [facility] Last Admin: 03/17/18 09:39 Dose: 2,000 unit Clopidogrel Bisulfate (Plavix -) 75 mg PO DAILY [facility] Last Admin: 03/17/18 09:39 Dose: 75 mg Docusate Sodium (Colace -) 100 mg PO BID PRN PRN Reason: CONSTIPATION Last Admin: 03/17/18 09:42 Dose: 100 mg Escitalopram Oxalate (Lexapro -) 10 mg PO DAILY [facility] Last Admin: 03/17/18 09:39 Dose: 10 mg Finasteride (Proscar -) 5 mg PO DAILY [facility] Last Admin: 03/17/18 09:39 Dose: 5 mg Furosemide (Lasix Injection -) 80 mg IVPUSH BID@0600,1400 [facility] Last Admin: 03/17/18 06:20 Dose: 80 mg Insulin Aspart (Novolog Vial Sliding Scale -) 1 vial SQ [facility]; Protocol Last Admin: 03/17/18 11:22 Dose: 4 units Metolazone (Zaroxolyn -) 5 mg PO ONCE ONE Stop: 03/17/18 13:01 Metoprolol Tartrate (Lopressor -) 25 mg PO BID [facility] Last Admin: 03/17/18 09:39 Dose: 25 mg Rosuvastatin Calcium (Crestor -) 10 mg PO HS [facility] Last Admin: 03/16/18 21:27 Dose: 10 mg Tamsulosin HCl (Flomax -) 0.4 mg PO BID@0830,2200 [facility] Last Admin: 03/17/18 08:08 Dose: 0.4 mg ASSESSMENT/PLAN: A 78 year old with a PMH of CHF, CAD, s/p stent in 2017, CKD, HLD, pre diabetes , who presents to the hospital with worsening SOB x 3 days. He is admitted for CHF exacerbation and hypotension. #Cardiovascular -Acute on chronic CHF exacerbation IVPB Lasix 80mg BID strict I&O(Total of 5,585ml net output), daily weights( 80.881kg) monitor BP, baseline systolic 115-120 hold BP medications except Metoprolol which will be given at half dose(Losartan 50mg, Torsemide 40mg daily and Spironolactone 25 mg daily) as BP has been low since admission. Changed parameters of holding Metoprolol to 90 SBP as pt. has been having low BP throughout hospital course. troponins trended- peaked at 0.21, no new ekg changes, no ST elevations or depressions c/w Metalozone 5mg -for HLD c/w Crestor #Pulmonology -Shortness of Breath 2/2 hypervolemia 2/2 acute CHF exacerbation CXR(03/16/18) shows minimal improvement w/ increased radiolucency over the right lung. c/w diuresis c/w supplemental o2 to keep spO2 above 90% #Renal -Urinary retention 2/2 hematuria Holt placed 03/11/18- draining translucent brown colored urine Urology consult appreciated- c/w Holt for 1 week (Day 3) will need CMG as outpatient. hold nephrotoxic substances; Losartan 50 mg daily (home dose) and Metformin 500 mg PO HS -BPH c/w Finasteride 5mg daily and Tamsulosin 0.4 mg daily -PACO monitor BMP Cr. 1.5 (03/16/18) trending down hold fluids as actively diuresing nephrology onboard #Endocrinology -DM2 c/w insulin sliding scale #DVT PPx. -c/w Xarelto -c/w SCDs -c/w Plavix -encourage OOB ambulation #FEN Fluid restriction Potassium repleted #Dispo -ICU Visit type - Emergency Visit Emergency Visit: Yes ED Registration Date: 03/10/18 Care time: The patient presented to the Emergency Department on the above date and was hospitalized for further evaluation of their emergent condition. - New Patient This patient is new to me today: No - Critical Care Critical Care patient: No
[2018-03-17] MEDS ORDERED: METOLAZONE 5 MG TABLET PO ONE (13:00)
[2018-03-17] MEDS ORDERED: HEMOQUE TEST 1 EACH EACH ONE (21:01)
[2018-03-17] MEDS ORDERED: PT OWN MED DRAWER 7, Y5N ONE (21:01)
[2018-03-17] MEDS: ROSUVASTATIN CA 10 MG TABLET (FP) PO SCH (21:06)
[2018-03-17] MEDS ORDERED: diphenhydrAMINE HCL 25 MG CAPSULE (FP) PO ONE (21:13)
[2018-03-18 06:22] LABS: BASO % 0.7 % (0-2.0); EOS % 2.3 % (0-4.5); HEMATOCRIT 38.7 % (35.4-49); HEMOGLOBIN 12.9 GM/dL (11.7-16.9); LYMPH % 11.6 % (8-40); MCH 28.4 pg (25.7-33.7); MCHC 33.3 g/dl (32.0-35.9); MEAN CELL VOLUME 85.3 fl (80-96); MEAN PLT VOLUME 7.6 fl (7.5-11.1); MONO % 9.2 % (3.8-10.2); NEUT % 76.2 % (42.8-82.8); PLATELET COUNT 230 K/MM3 (134-434); RBC 4.54 M/mm3 (4.00-5.60); RDW 16.8 % (11.9-15.9); WHITE BLOOD COUNT 10.3 K/mm3 (4.0-10.0)
[2018-03-18] MEDS: INSULIN SLIDING SCALE (NOVOLOG) 1 VIAL SQ SCH ×4 (06:41→21:02)
[2018-03-18 06:42] LABS: ALBUMIN 3.3 g/dl (3.4-5.0); ANION GAP 7 MMOL/L (8-16); BLOOD UREA NITROGEN 59 mg/dL (7-18); CALCIUM 9.8 mg/dL (8.5-10.1); CHLORIDE 92 mmol/L (98-107); CO2 38 mmol/L (21-32); CREATININE 1.5 mg/dL (0.7-1.3); GLUCOSE,RANDOM 130 mg/dL (74-106); PHOSPHOROUS 3.8 mg/dL (2.5-4.9); POTASSIUM 3.4 mmol/L (3.5-5.1); SGOT/AST 15 U/L (15-37); SGPT/ALT 12 U/L (12-78); SODIUM 137 mmol/L (136-145); TOT PROT 6.8 g/dl (6.4-8.2)
[2018-03-18 06:43] LABS: ALK PHOS 55 U/L (45-117)
[2018-03-18] MEDS: FUROSEMIDE 40 MG/4 ML INJECTABLE VIAL IVPUSH SCH ×2 (06:48→13:12)
[2018-03-18] MEDS ORDERED: PT OWN MED DRAWER 7, Y5N ONE (08:17)
[2018-03-18] MEDS: TAMSULOSIN HCL 0.4 MG CAP PO SCH ×2 (08:25→21:02)
[2018-03-18] MEDS: CLOPIDOGREL BISULFATE 75 MG TABLET (FP) PO SCH (09:20)
[2018-03-18] MEDS: METOPROLOL TARTRATE 25 MG TABLET (FP) PO SCH ×2 (09:20→21:03)
[2018-03-18] MEDS: FINASTERIDE 5 MG TABLET (FP) PO SCH (09:20)
[2018-03-18] MEDS: ESCITALOPRAM OXALATE 10 MG TABLET (FP) PO SCH (09:20)
[2018-03-18] MEDS: ALLOPURINOL 100 MG TABLET (FP) PO SCH (09:20)
[2018-03-18] MEDS: CHOLECALCIFEROL (VITAMIN D3) 1,000 UNIT TABLET (FP) PO SCH (09:20)
[2018-03-18] MEDS ORDERED: POTASSIUM CHLORIDE TABS 20 MEQ TABLET.ER (FP) PO ONE (09:36)
--- NOTE | 2018-03-18 11:19 | PN ---
Teaching Attending Note Name of Resident: Yeni Mohr ATTENDING PHYSICIAN STATEMENT I saw and evaluated the patient. I reviewed the resident's note and discussed the case with the resident. I agree with the resident's findings and plan as documented. SUBJECTIVE: Pt seen and examined in the ICU. Denies shortness of breath, chest pain or palpitations. Continues to diurese well. OBJECTIVE: Vital Signs Period Temp Pulse Resp BP Sys/Eisenberg Pulse Ox Last 24 Hr 97.3 F-98.0 F 84-106 14-24 82-107/53-85 96-98 Intake & Output 03/15/18 03/16/18 03/17/18 03/18/18 23:59 23:59 23:59 23:59 Intake Total 2220 1400 2500 Output Total 3250 3700 3250 875 Balance -1030 -2300 -750 -875 Weight 82.554 kg 81.391 kg 80.881 kg 80.5 kg Gen: NAD at rest Heart: irregular Lung: scattered rhonchi Abd: soft, nontender Ext: no edema CBC, BMP 03/18/18 05:30 03/18/18 05:30 Active Medications Allopurinol (Zyloprim -) 100 mg PO DAILY [facility] Last Admin: 03/18/18 09:20 Dose: 100 mg Cholecalciferol (Vitamin D3 -) 2,000 unit PO DAILY [facility] Last Admin: 03/18/18 09:20 Dose: 2,000 unit Clopidogrel Bisulfate (Plavix -) 75 mg PO DAILY [facility] Last Admin: 03/18/18 09:20 Dose: 75 mg Docusate Sodium (Colace -) 100 mg PO BID PRN PRN Reason: CONSTIPATION Last Admin: 03/17/18 09:42 Dose: 100 mg Escitalopram Oxalate (Lexapro -) 10 mg PO DAILY [facility] Last Admin: 03/18/18 09:20 Dose: 10 mg Finasteride (Proscar -) 5 mg PO DAILY [facility] Last Admin: 03/18/18 09:20 Dose: 5 mg Furosemide (Lasix Injection -) 80 mg IVPUSH BID@0600,1400 [facility] Last Admin: 03/18/18 06:48 Dose: 80 mg Insulin Aspart (Novolog Vial Sliding Scale -) 1 vial SQ ACHS [facility]; Protocol Last Admin: 03/18/18 06:41 Dose: Not Given Metolazone (Zaroxolyn -) 5 mg PO ONCE ONE Stop: 03/18/18 13:01 Metoprolol Tartrate (Lopressor -) 25 mg PO BID [facility] Last Admin: 03/18/18 09:20 Dose: 25 mg Rosuvastatin Calcium (Crestor -) 10 mg PO HS [facility] Last Admin: 03/17/18 21:06 Dose: 10 mg Tamsulosin HCl (Flomax -) 0.4 mg PO BID@0830,2200 [facility] Last Admin: 03/18/18 08:25 Dose: 0.4 mg ASSESSMENT AND PLAN: Acute on Chronic Systolic Heart Failure Atrial Fibrillation CAD +Troponins likely Demand Ischemia Acute on Chronic Renal Failure HTN DM Hyperlipidemia Hematuria - continue lasix - monitor urine output, creatinine - keep net negative - daily weights - rate controlled - resume anticoagulation - O2 to keep SpO2 >90% - can monitor on floor
[2018-03-18] MEDS ORDERED: HEMOQUE TEST 1 EACH EACH ONE (11:39)
--- NOTE | 2018-03-18 11:42 | PN ---
Progress Note (short form) - Note Progress Note: s: no cp palps dizzy; sob improving o: Vital Signs Period Temp Pulse Resp BP Sys/Eisenberg Pulse Ox Last 24 Hr 97.3 F-98.0 F 84-106 14-24 82-107/53-85 96-98 Constitutional: Yes: Well Nourished, No Distress, Calm Eyes: Yes: Conjunctiva Clear Neck: Yes: Supple, Trachea Midline Respiratory: Yes: cta bl nl eff Gastrointestinal: Yes: Normal Bowel Sounds, Soft Cardiovascular: Yes: Regular Rate and Rhythm JVD: Yes Heart Sounds: Yes: S1, S2 Edema: Yes Edema: no Psychiatric: Yes: Alert, Oriented no jaundice diaphoresis Current Medications Generic Name Dose Route Start Last Admin Trade Name Freq PRN Reason Stop Dose Admin Allopurinol 100 mg 03/14/18 10:00 03/18/18 09:20 Zyloprim - PO 100 mg DAILY [facility] Administration Cholecalciferol 2,000 unit 03/14/18 10:00 03/18/18 09:20 Vitamin D3 - PO 2,000 unit DAILY [facility] Administration Clopidogrel Bisulfate 75 mg 03/14/18 10:00 03/18/18 09:20 Plavix - PO 75 mg DAILY [facility] Administration Docusate Sodium 100 mg 03/13/18 13:46 03/17/18 09:42 Colace - PO 100 mg BID PRN Administration CONSTIPATION Escitalopram Oxalate 10 mg 03/14/18 10:00 03/18/18 09:20 Lexapro - PO 10 mg DAILY [facility] Administration Finasteride 5 mg 03/14/18 10:00 03/18/18 09:20 Proscar - PO 5 mg DAILY [facility] Administration Furosemide 80 mg 03/15/18 06:00 03/18/18 06:48 Lasix Injection - IVPUSH 80 mg BID@0600,1400 [facility] Administration Insulin Aspart 1 vial 03/14/18 07:00 03/18/18 06:41 Novolog Vial Sliding Scale - SQ Not Given ACHS [facility] Protocol Metolazone 5 mg 03/18/18 13:00 Zaroxolyn - PO 03/18/18 13:01 ONCE ONE Metoprolol Tartrate 25 mg 03/14/18 11:33 03/18/18 09:20 Lopressor - PO 25 mg BID [facility] Administration Rosuvastatin Calcium 10 mg 03/14/18 22:00 03/17/18 21:06 Crestor - PO 10 mg HS [facility] Administration Tamsulosin HCl 0.4 mg 03/14/18 08:30 03/18/18 08:25 Flomax - PO 0.4 mg BID@0830,2200 [facility] Administration CBC, BMP 03/18/18 05:30 03/18/18 05:30 echo with definity 07/2017 dilated LV, EF20-25%, with apical AK, HK of inf and lat [place], grade II diastolic dysfunction, cath 04/2017 MLM 80-90% with severe calc, pLAD POLISHER SAND fills with collat from LCX and RCA. EF 15% dyskinetic apex, s/p LM PCI tele: afib, rate ok a/p 77M h/o HTN, HLD, DM, chronic systolic HF p/w shortness of breath for two weeks acute on chronic systolic HF s/p ICD - symptoms concerning for CHF exacerbation, BNP 8000 - at home was on torsemide 80 mg BID - continue bb as tolerated, hold losartan and spironolactone in setting of PACO - diuresing well. cont lasix 80 iv bid with metolazone 5 today. replete k. - monitor Cr, weights, I/O, chem7 CAD s/p LM stent 04/2017 - cont statin, plavix, metoprolol pos troponin -borderline trop elevation with flat trend and nl ck, not c/w acs afib - restarted on metoprolol 25 mg BID with improved rates, uptitrate as tolerated however has had low BP - cont xarelto PACO - may be cardiorenal, obstructive - improving with diuresis, cutris placement - renal ultrasound, no obstruction - Cr 1.4 in clinic 12/2017 - appreciate nephrology, urology recs HTN - low BP as above HLD - cont statin DM - manage per primary can transfer to med-surg floor
--- NOTE | 2018-03-18 11:49 | PN ---
Progress Note (short form) - Note Progress Note: Renal follow up for PACO Pt seen and examined in the ICU no acute complaints no sob, cp, abd pain N/V/D voding via curtis Vital Signs Temperature 97.6 F 03/18/18 09:28 Pulse Rate 94 H 03/18/18 10:00 Respiratory Rate 22 03/18/18 10:00 Blood Pressure 116/72 03/18/18 10:00 O2 Sat by Pulse Oximetry (%) 98 03/18/18 08:07 Intake & Output 03/15/18 03/16/18 03/17/18 03/18/18 23:59 23:59 23:59 23:59 Intake Total 2220 1400 2500 Output Total 3250 3700 3250 1575 Balance -1030 -2300 -750 -1575 Weight 82.554 kg 81.391 kg 80.881 kg 80.5 kg NAD awake and alert RRR, No M/R + rales right lung base soft NT/ND no Le edema CBC, BMP 03/18/18 05:30 03/18/18 05:30 Current Medications Allopurinol (Zyloprim -) 100 mg PO DAILY [facility] Last Admin: 03/18/18 09:20 Dose: 100 mg Cholecalciferol (Vitamin D3 -) 2,000 unit PO DAILY [facility] Last Admin: 03/18/18 09:20 Dose: 2,000 unit Clopidogrel Bisulfate (Plavix -) 75 mg PO DAILY [facility] Last Admin: 03/18/18 09:20 Dose: 75 mg Docusate Sodium (Colace -) 100 mg PO BID PRN PRN Reason: CONSTIPATION Last Admin: 03/17/18 09:42 Dose: 100 mg Escitalopram Oxalate (Lexapro -) 10 mg PO DAILY [facility] Last Admin: 03/18/18 09:20 Dose: 10 mg Finasteride (Proscar -) 5 mg PO DAILY [facility] Last Admin: 03/18/18 09:20 Dose: 5 mg Furosemide (Lasix Injection -) 80 mg IVPUSH BID@0600,1400 [facility] Last Admin: 03/18/18 06:48 Dose: 80 mg Insulin Aspart (Novolog Vial Sliding Scale -) 1 vial SQ ACHS [facility]; Protocol Last Admin: 03/18/18 11:47 Dose: 6 units Metolazone (Zaroxolyn -) 5 mg PO ONCE ONE Stop: 03/18/18 13:01 Metoprolol Tartrate (Lopressor -) 25 mg PO BID [facility] Last Admin: 03/18/18 09:20 Dose: 25 mg Rosuvastatin Calcium (Crestor -) 10 mg PO HS [facility] Last Admin: 03/17/18 21:06 Dose: 10 mg Tamsulosin HCl (Flomax -) 0.4 mg PO BID@0830,2200 [facility] Last Admin: 03/18/18 08:25 Dose: 0.4 mg 78 year old gentleman with Hx of CHF, Hypertension, HLD, DM who presented with SOB and admitted for CHF exacerbation with PACO. #PACO on ? 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 obstruction/urinary retention #CHF Exacerbation #BPH with ? retention #Gross hematuria following catheter placement #Renal Cysts Renal function improved and stable continue Lasix + Metolazone Maintain curtis until pt is able to ambulate Urology follow up continue flomax and proscar Efrain Casey DO
--- NOTE | 2018-03-18 12:24 | PN ---
Physical Exam: SUBJECTIVE: Patient seen and examined; no acute events overnight; no new complaints; denies chest pain, sob. Adequate urine output. OBJECTIVE: Vital Signs Period Temp Pulse Resp BP Sys/Eisenberg Pulse Ox Last 24 Hr 97.3 F-98.0 F 84-106 14-22 89-116/53-85 96-98 GENERAL: The patient is awake, alert, and fully oriented, in no acute distress. LUNGS: mild basilar crackles HEART: Regular rate and rhythm, S1, S2 ABDOMEN: Soft, nontender, nondistended, normoactive bowel sounds, no guarding, no rebound, no hepatosplenomegaly, no masses. EXTREMITIES: 2+ pulses, warm, well-perfused, no edema. NEUROLOGICAL: Cranial nerves II through XII grossly intact. Normal speech, gait not observed. Laboratory Results - last 24 hr 03/17/18 03/17/18 03/18/18 17:30 21:10 05:30 WBC RBC Hgb Hct MCV MCH MCHC RDW Plt Count MPV Absolute Neuts (auto) Neutrophils % Lymphocytes % Monocytes % Eosinophils % Basophils % Nucleated RBC % Sodium 137 Potassium 3.4 L Chloride 92 L Carbon Dioxide 38 H Anion Gap 7 L BUN 59 H Creatinine 1.5 H Creat Clearance w eGFR 45.50 POC Glucometer 172.71572 213.07209 Random Glucose 130 H Calcium 9.8 Phosphorus 3.8 Magnesium 2.0 Total Bilirubin 1.0 AST 15 ALT 12 Alkaline Phosphatase 55 Total Protein 6.8 Albumin 3.3 L 03/18/18 03/18/18 03/18/18 05:30 06:14 11:43 WBC 10.3 H RBC 4.54 Hgb 12.9 Hct 38.7 MCV 85.3 MCH 28.4 MCHC 33.3 RDW 16.8 H Plt Count 230 MPV 7.6 Absolute Neuts (auto) 7.9 Neutrophils % 76.2 Lymphocytes % 11.6 Monocytes % 9.2 Eosinophils % 2.3 Basophils % 0.7 Nucleated RBC % 0 Sodium Potassium Chloride Carbon Dioxide Anion Gap BUN Creatinine Creat Clearance w eGFR POC Glucometer 102.24703 [phone] Random Glucose Calcium Phosphorus Magnesium Total Bilirubin AST ALT Alkaline Phosphatase Total Protein Albumin Active Medications Generic Name Dose Route Start Last Admin Trade Name Freq PRN Reason Stop Dose Admin Allopurinol 100 mg 03/14/18 10:00 03/18/18 09:20 Zyloprim - PO 100 mg DAILY [facility] Administration Cholecalciferol 2,000 unit 03/14/18 10:00 03/18/18 09:20 Vitamin D3 - PO 2,000 unit DAILY [facility] Administration Clopidogrel Bisulfate 75 mg 03/14/18 10:00 03/18/18 09:20 Plavix - PO 75 mg DAILY [facility] Administration Docusate Sodium 100 mg 03/13/18 13:46 03/17/18 09:42 Colace - PO 100 mg BID PRN Administration CONSTIPATION Escitalopram Oxalate 10 mg 03/14/18 10:00 03/18/18 09:20 Lexapro - PO 10 mg DAILY [facility] Administration Finasteride 5 mg 03/14/18 10:00 03/18/18 09:20 Proscar - PO 5 mg DAILY [facility] Administration Furosemide 80 mg 03/15/18 06:00 03/18/18 06:48 Lasix Injection - IVPUSH 80 mg BID@0600,1400 [facility] Administration Insulin Aspart 1 vial 03/14/18 07:00 03/18/18 11:47 Novolog Vial Sliding Scale - SQ 6 units ACHS [facility] Administration Protocol Metolazone 5 mg 03/18/18 13:00 Zaroxolyn - PO 03/18/18 13:01 ONCE ONE Metoprolol Tartrate 25 mg 03/14/18 11:33 03/18/18 09:20 Lopressor - PO 25 mg BID [facility] Administration Rosuvastatin Calcium 10 mg 03/14/18 22:00 03/17/18 21:06 Crestor - PO 10 mg HS [facility] Administration Tamsulosin HCl 0.4 mg 03/14/18 08:30 03/18/18 08:25 Flomax - PO 0.4 mg BID@0830,2200 [facility] Administration ASSESSMENT/PLAN: 78 year old male with a medical history of hypertension, CAD, CHF, CKD, who presented with shortness of breath found have acute exacerbation of heart failure with acute on chronic kidney injury. #Acute on chronic systolic heart failure: improved -off lasix drip -cont lasix 80mgIV bid -metolazone as per cardio -stricgt I/Os; daily weights -appreciate cardio #Acute on chronic renal failure: improving -monitor bmp -sec to cardio renal syndrome -modesta renal #Atrial fibrillation: rate controlled -metoprolol 25mg bid -cont AC #Elevated troponins; resolved -likely secondary to demand ischemia #CAD: -cont clopidogrel, statin, BB #DM: -cont insulin SS -BGM ACHS #hematuria: resolved - sec to traumatic curtis; on AC -curtis with clear urine -f/u with urology #hx of BPH; -seen by urology; no clots; will see in office for cystoscopy -cont finesteride/flomax; urology would like patient on antibiotics before office visit for cystoscopy #HTN: bp control #HLD: statin FEN: Fluids: restrict Electrolytes: replace; Nutrition : cardiac diet DVT: ppl; on AC GI ppl: protonix Disposition: transfer to tele Visit type - Emergency Visit Emergency Visit: Yes ED Registration Date: 03/10/18 Care time: The patient presented to the Emergency Department on the above date and was hospitalized for further evaluation of their emergent condition. - New Patient This patient is new to me today: No - Critical Care Critical Care patient: Yes Total Critical Care Time (in minutes): 45 Critical Care Statement: The care of this patient involved high complexity decision making to prevent further life threatening deterioration of the patient 's condition and/or to evaluate & treat vital organ system(s) failure or risk of failure.
--- NOTE | 2018-03-18 12:56 | PN ---
Progress Note, Physician Chief Complaint: OOB to chair NAD VSS afebrile no new c/o meds consults and results reviewed and d/w pt and pt's PCP dr Kenzie martinez an update. - Current Medication List Current Medications: Active Medications Allopurinol (Zyloprim -) 100 mg PO DAILY [facility] Last Admin: 03/18/18 09:20 Dose: 100 mg Cholecalciferol (Vitamin D3 -) 2,000 unit PO DAILY [facility] Last Admin: 03/18/18 09:20 Dose: 2,000 unit Clopidogrel Bisulfate (Plavix -) 75 mg PO DAILY [facility] Last Admin: 03/18/18 09:20 Dose: 75 mg Docusate Sodium (Colace -) 100 mg PO BID PRN PRN Reason: CONSTIPATION Last Admin: 03/17/18 09:42 Dose: 100 mg Escitalopram Oxalate (Lexapro -) 10 mg PO DAILY [facility] Last Admin: 03/18/18 09:20 Dose: 10 mg Finasteride (Proscar -) 5 mg PO DAILY [facility] Last Admin: 03/18/18 09:20 Dose: 5 mg Furosemide (Lasix Injection -) 80 mg IVPUSH BID@0600,1400 [facility] Last Admin: 03/18/18 06:48 Dose: 80 mg Insulin Aspart (Novolog Vial Sliding Scale -) 1 vial SQ [facility]; Protocol Last Admin: 03/18/18 11:47 Dose: 6 units Metolazone (Zaroxolyn -) 5 mg PO ONCE ONE Stop: 03/18/18 13:01 Last Admin: 03/18/18 12:30 Dose: 5 mg Metoprolol Tartrate (Lopressor -) 25 mg PO BID [facility] Last Admin: 03/18/18 09:20 Dose: 25 mg Rosuvastatin Calcium (Crestor -) 10 mg PO HS [facility] Last Admin: 03/17/18 21:06 Dose: 10 mg Tamsulosin HCl (Flomax -) 0.4 mg PO BID@0830,2200 [facility] Last Admin: 03/18/18 08:25 Dose: 0.4 mg - Objective Vital Signs: Vital Signs Temperature 97.6 F 03/18/18 09:28 Pulse Rate 96 H 03/18/18 11:49 Respiratory Rate 20 03/18/18 11:49 Blood Pressure 85/65 03/18/18 12:33 O2 Sat by Pulse Oximetry (%) 98 03/18/18 08:07 Constitutional: Yes: No Distress, Calm Eyes: Yes: Conjunctiva Clear HENT: Yes: Atraumatic Neck: Yes: Supple Cardiovascular: Yes: Regular Rate and Rhythm Respiratory: Yes: CTA Bilaterally Gastrointestinal: Yes: Soft. No: Tenderness Genitourinary: No: CVA Tenderness - Left, CVA Tenderness - Right Musculoskeletal: No: Joint Stiffness, Joint Swelling Extremities: No: Cold, Cool, Cyanosis Edema: No Integumentary: No: Rash, Venous Stasis Changes Neurological: Yes: WNL, Alert, Oriented ...Motor Strength: WNL Psychiatric: Yes: WNL, Alert, Oriented. No: Agitated, Suicidal Ideation Labs: CBC, BMP 03/18/18 05:30 03/18/18 05:30 - ....Imaging Other: Report Reviewed Assessment/Plan 78 YOM admitted to ICU Acute on Chronic Systolic Heart Failure Atrial Fibrillation, CAD +Troponins likely Demand Ischemia Acute on Chronic Renal Failure HTN DM Hyperlipidemia Hematuria - continue lasix - monitor urine output, creatinine - keep net negative - daily weights - rate controlled - meds per cardio and pulm ICU - O2 to keep SpO2 >90% f/w pt and staff
[2018-03-18] MEDS ORDERED: METOLAZONE 5 MG TABLET PO ONE (13:00)
[2018-03-18] MEDS ORDERED: diphenhydrAMINE HCL 25 MG CAPSULE (FP) PO ONE (20:00)
[2018-03-18] MEDS: ROSUVASTATIN CA 10 MG TABLET (FP) PO SCH (21:03)
[2018-03-19] MEDS: FUROSEMIDE 40 MG/4 ML INJECTABLE VIAL IVPUSH SCH ×2 (05:55→13:22)
[2018-03-19] MEDS: INSULIN SLIDING SCALE (NOVOLOG) 1 VIAL SQ SCH ×4 (06:08→21:52)
[2018-03-19 06:17] LABS: BASO % 0.9 % (0-2.0); EOS % 1.8 % (0-4.5); LYMPH % 10.7 % (8-40); MCH 27.7 pg (25.7-33.7); MCHC 32.4 g/dl (32.0-35.9); MEAN CELL VOLUME 85.5 fl (80-96); MEAN PLT VOLUME 7.4 fl (7.5-11.1); MONO % 10.2 % (3.8-10.2); NEUT % 76.4 % (42.8-82.8); PLATELET COUNT 234 K/MM3 (134-434); RBC 4.68 M/mm3 (4.00-5.60); RDW 17.1 % (11.9-15.9); WHITE BLOOD COUNT 10.3 K/mm3 (4.0-10.0)
[2018-03-19 06:47] LABS: ANION GAP 10 MMOL/L (8-16); BLOOD UREA NITROGEN 57 mg/dL (7-18); CALCIUM 9.5 mg/dL (8.5-10.1); CHLORIDE 91 mmol/L (98-107); CO2 36 mmol/L (21-32); CREATININE 1.4 mg/dL (0.7-1.3); GLUCOSE,RANDOM 139 mg/dL (74-106); MAGNESIUM 2.2 mg/dL (1.8-2.4); PHOSPHOROUS 3.6 mg/dL (2.5-4.9); POTASSIUM 3.6 mmol/L (3.5-5.1); SODIUM 137 mmol/L (136-145)
[2018-03-19] MEDS: METOPROLOL TARTRATE 25 MG TABLET (FP) PO SCH ×2 (09:27→21:51)
[2018-03-19] MEDS: CHOLECALCIFEROL (VITAMIN D3) 1,000 UNIT TABLET (FP) PO SCH (09:28)
[2018-03-19] MEDS: CLOPIDOGREL BISULFATE 75 MG TABLET (FP) PO SCH (09:28)
[2018-03-19] MEDS: ALLOPURINOL 100 MG TABLET (FP) PO SCH (09:28)
[2018-03-19] MEDS: TAMSULOSIN HCL 0.4 MG CAP PO SCH ×2 (09:28→21:51)
[2018-03-19] MEDS: FINASTERIDE 5 MG TABLET (FP) PO SCH (09:28)
[2018-03-19] MEDS: ESCITALOPRAM OXALATE 10 MG TABLET (FP) PO SCH (09:28)
--- NOTE | 2018-03-19 09:48 | PN ---
Progress Note (short form) - Note Progress Note: s: no cp palps dizzy; sob improving, complains of discomfort with catheter o: Vital Signs Period Temp Pulse Resp BP Sys/Eisenberg Pulse Ox Last 24 Hr 97.7 F-98.2 F 83-103 12-22 83-116/57-75 96-98 Constitutional: Yes: Well Nourished, No Distress, Calm Eyes: Yes: Conjunctiva Clear Neck: Yes: Supple, Trachea Midline Respiratory: Yes: cta bl nl eff Gastrointestinal: Yes: Normal Bowel Sounds, Soft Cardiovascular: Yes: Regular Rate and Rhythm JVD: Yes Heart Sounds: Yes: S1, S2 Edema: Yes Edema: no Psychiatric: Yes: Alert, Oriented no jaundice diaphoresis Current Medications Allopurinol (Zyloprim -) 100 mg PO DAILY [facility] Last Admin: 03/19/18 09:28 Dose: 100 mg Cholecalciferol (Vitamin D3 -) 2,000 unit PO DAILY [facility] Last Admin: 03/19/18 09:28 Dose: 2,000 unit Clopidogrel Bisulfate (Plavix -) 75 mg PO DAILY [facility] Last Admin: 03/19/18 09:28 Dose: 75 mg Docusate Sodium (Colace -) 100 mg PO BID PRN PRN Reason: CONSTIPATION Last Admin: 03/17/18 09:42 Dose: 100 mg Escitalopram Oxalate (Lexapro -) 10 mg PO DAILY [facility] Last Admin: 03/19/18 09:28 Dose: 10 mg Finasteride (Proscar -) 5 mg PO DAILY [facility] Last Admin: 03/19/18 09:28 Dose: 5 mg Furosemide (Lasix Injection -) 80 mg IVPUSH BID@0600,1400 [facility] Last Admin: 03/19/18 05:55 Dose: 80 mg Insulin Aspart (Novolog Vial Sliding Scale -) 1 vial SQ ACHS [facility]; Protocol Last Admin: 03/19/18 06:08 Dose: Not Given Metoprolol Tartrate (Lopressor -) 25 mg PO BID [facility] Last Admin: 03/19/18 09:27 Dose: 25 mg Rosuvastatin Calcium (Crestor -) 10 mg PO HS [facility] Last Admin: 03/18/18 21:03 Dose: 10 mg Tamsulosin HCl (Flomax -) 0.4 mg PO BID@0830,2200 [facility] Last Admin: 03/19/18 09:28 Dose: 0.4 mg echo with definity 07/2017 dilated LV, EF20-25%, with apical AK, HK of inf and lat [place], grade II diastolic dysfunction, cath 04/2017 MLM 80-90% with severe calc, 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 EF 15% dyskinetic apex, s/p LM PCI tele: afib, rate ok a/p 77M h/o HTN, HLD, DM, chronic systolic HF p/w shortness of breath for two weeks acute on chronic systolic HF s/p ICD - symptoms concerning for CHF exacerbation, BNP 8000 - at home was on torsemide 80 mg BID - continue bb as tolerated, hold losartan and spironolactone in setting of PACO - continues to diurese, BUN/Cr stable, cont lasix 80 iv bid - monitor Cr, weights, I/O, chem7 CAD s/p LM stent 04/2017 - cont statin, plavix, metoprolol pos troponin -borderline trop elevation with flat trend and nl ck, not c/w acs afib - restarted on metoprolol 25 mg BID with improved rates, uptitrate as tolerated however has had low BP - cont xarelto PACO - may be cardiorenal, obstructive - improving with diuresis, curtis placement - renal ultrasound, no obstruction - Cr 1.4 in clinic 12/2017 - appreciate nephrology, urology recs HTN - low BP as above HLD - cont statin DM - manage per primary can transfer to med-surg floor
--- NOTE | 2018-03-19 11:04 | PN ---
Physical Exam: SUBJECTIVE: Patient seen and examined. No acute events overnight. Pt. complained of Holt discomfort which makes it difficult to walk and sleep. Pt. was given Benadryl last night to help sleep. During the day, after Holt removal Pt. c/o bladder fullness and inability to pass urine. Pt. had bladder scan done showing 155ml of urine. Dr. Boston was contacted and it was advised that if the Pt. is retaining more than 300ml that he should get catheterized and increase the dose of Tamsulosin to TID. OBJECTIVE: Vital Signs Period Temp Pulse Resp BP Sys/Eisenberg Pulse Ox Last 24 Hr 97.7 F-98.2 F 83-103 12-22 83-106/57-75 96-98 GENERAL: The patient is awake, alert lying in bed in no acute distress. LUNGS: Breath sounds equal, clear to auscultation anteriorly, no wheezes, mild crackles in posterior right lung, no accessory muscle use. HEART: Regular rate and rhythm, S1, S2 without murmur ABDOMEN: Soft, nontender, nondistended, normoactive bowel sounds, no guarding, no rebound, Holt in place draining clear yanet urine. EXTREMITIES: 2+ dorsal pedal pulses, warm, well-perfused, no edema, no calf tenderness. PSYCH: Normal mood, normal affect. SKIN: Warm, dry, normal turgor Laboratory Results - last 24 hr 03/18/18 03/18/18 03/18/18 06:14 11:43 17:23 WBC RBC Hgb Hct MCV MCH MCHC RDW Plt Count MPV Absolute Neuts (auto) Neutrophils % Lymphocytes % Monocytes % Eosinophils % Basophils % Nucleated RBC % Sodium Potassium Chloride Carbon Dioxide Anion Gap BUN Creatinine Creat Clearance w eGFR POC Glucometer 102.71423 [phone] Random Glucose Calcium Phosphorus Magnesium 03/18/18 03/19/18 03/19/18 20:53 05:30 05:30 WBC 10.3 H RBC 4.68 Hgb 13.0 Hct 40.0 MCV 85.5 MCH 27.7 MCHC 32.4 RDW 17.1 H Plt Count 234 MPV 7.4 L Absolute Neuts (auto) 7.9 Neutrophils % 76.4 Lymphocytes % 10.7 Monocytes % 10.2 Eosinophils % 1.8 Basophils % 0.9 Nucleated RBC % 0 Sodium 137 Potassium 3.6 Chloride 91 L Carbon Dioxide 36 H Anion Gap 10 BUN 57 H Creatinine 1.4 H Creat Clearance w eGFR 49.27 POC Glucometer [phone] Random Glucose 139 H Calcium 9.5 Phosphorus 3.6 Magnesium 2.2 Active Medications Current Medications Allopurinol (Zyloprim -) 100 mg PO DAILY [facility] Last Admin: 03/19/18 09:28 Dose: 100 mg Cholecalciferol (Vitamin D3 -) 2,000 unit PO DAILY [facility] Last Admin: 03/19/18 09:28 Dose: 2,000 unit Clopidogrel Bisulfate (Plavix -) 75 mg PO DAILY [facility] Last Admin: 03/19/18 09:28 Dose: 75 mg Docusate Sodium (Colace -) 100 mg PO BID PRN PRN Reason: CONSTIPATION Last Admin: 03/17/18 09:42 Dose: 100 mg Escitalopram Oxalate (Lexapro -) 10 mg PO DAILY [facility] Last Admin: 03/19/18 09:28 Dose: 10 mg Finasteride (Proscar -) 5 mg PO DAILY [facility] Last Admin: 03/19/18 09:28 Dose: 5 mg Furosemide (Lasix Injection -) 80 mg IVPUSH BID@0600,1400 [facility] Last Admin: 03/19/18 05:55 Dose: 80 mg Insulin Aspart (Novolog Vial Sliding Scale -) 1 vial SQ [facility]; Protocol Last Admin: 03/19/18 06:08 Dose: Not Given Metoprolol Tartrate (Lopressor -) 25 mg PO BID [facility] Last Admin: 03/19/18 09:27 Dose: 25 mg Rosuvastatin Calcium (Crestor -) 10 mg PO HS [facility] Last Admin: 03/18/18 21:03 Dose: 10 mg Tamsulosin HCl (Flomax -) 0.4 mg PO BID@0830,2200 [facility] Last Admin: 03/19/18 09:28 Dose: 0.4 mg ASSESSMENT/PLAN: A 78 year old with a PMH of CHF, CAD, s/p stent in 2017, CKD, HLD, pre diabetes , who presents to the hospital with worsening SOB x 3 days. He is admitted for CHF exacerbation and hypotension. #Cardiovascular -Acute on chronic CHF exacerbation strict I&O(Total of 11,455 ml net output), daily weights(80.3kg) Given BID Lasix dose today, will switch to PO Torsemide (03/20/18) per Dr. Duong monitor BP, baseline systolic 115-120 hold BP medications except Metoprolol which will be given at half dose(Losartan 50mg, Torsemide 40mg daily and Spironolactone 25 mg daily) as BP has been low since admission. Changed parameters of holding Metoprolol to 90 SBP as pt. has been having low BP throughout hospital course. troponins trended- peaked at 0.21, no new ekg changes, no ST elevations or depressions c/w Metalozone 5mg -for HLD c/w Crestor #Pulmonology -Shortness of Breath 2/2 hypervolemia 2/2 acute CHF exacerbation Pt. endorses feeling better, resolving CXR(03/16/18) shows minimal improvement w/ increased radiolucency over the right lung. c/w diuresis as above c/w supplemental O2 to keep spO2 above 90% #Renal -Urinary retention 2/2 hematuria Holt placed 03/11/18- draining clear yanet urine Urology consult appreciated- D/C Holt, will need CMG as outpatient. hold nephrotoxic substances; Losartan 50 mg daily (home dose) and Metformin 500 mg PO HS -BPH c/w Finasteride 5mg daily and Tamsulosin 0.4 mg daily -PACO resolved monitor BMP Cr. 1.4 (03/19/18) trending down. As per Dr. Sarmiento's note, Pt.'s Cr. was 1.4 in the clinic 12/2017. This may be the new baseline. hold fluids as actively diuresing nephrology onboard #Endocrinology -DM2 c/w insulin sliding scale #DVT PPx. -c/w Xarelto -c/w SCDs -c/w Plavix -encourage OOB ambulation #FEN Fluid restriction Potassium repleted, monitor BMP D/C Holt per Dr. Boston #Dispo -Tele Visit type - Emergency Visit Emergency Visit: Yes ED Registration Date: 03/10/18 Care time: The patient presented to the Emergency Department on the above date and was hospitalized for further evaluation of their emergent condition. - New Patient This patient is new to me today: No - Critical Care Critical Care patient: No - Discharge Referral Referred to [facility] Med P.C.: No
--- NOTE | 2018-03-19 11:38 | PN ---
Progress Note (short form) - Note Progress Note: Renal follow up for PACO Pt seen and examined in the ICU no acute complaints making urine via curtis no cp, sob, abd pain, N/V/D denies any sob, cp, abd pain Vital Signs Temperature 98.2 F 03/19/18 02:00 Pulse Rate 92 H 03/19/18 10:00 Respiratory Rate 20 03/19/18 10:00 Blood Pressure 106/65 03/19/18 10:00 O2 Sat by Pulse Oximetry (%) 98 03/19/18 09:00 Intake & Output 03/16/18 03/17/18 03/18/18 03/19/18 23:59 23:59 23:59 23:59 Intake Total 1400 2500 1450 280 Output Total 3700 3250 2775 Balance -2300 -750 -1325 280 Weight 81.391 kg 80.881 kg 80.5 kg 80.3 kg NAD awake and alert RRR, No M/R + rales right lung base soft NT/ND no Le edema CBC, BMP 03/18/18 05:30 03/18/18 05:30 Current Medications Allopurinol (Zyloprim -) 100 mg PO DAILY [facility] Last Admin: 03/18/18 09:20 Dose: 100 mg Cholecalciferol (Vitamin D3 -) 2,000 unit PO DAILY [facility] Last Admin: 03/18/18 09:20 Dose: 2,000 unit Clopidogrel Bisulfate (Plavix -) 75 mg PO DAILY [facility] Last Admin: 03/18/18 09:20 Dose: 75 mg Docusate Sodium (Colace -) 100 mg PO BID PRN PRN Reason: CONSTIPATION Last Admin: 03/17/18 09:42 Dose: 100 mg Escitalopram Oxalate (Lexapro -) 10 mg PO DAILY [facility] Last Admin: 03/18/18 09:20 Dose: 10 mg Finasteride (Proscar -) 5 mg PO DAILY [facility] Last Admin: 03/18/18 09:20 Dose: 5 mg Furosemide (Lasix Injection -) 80 mg IVPUSH BID@0600,1400 [facility] Last Admin: 03/18/18 06:48 Dose: 80 mg Insulin Aspart (Novolog Vial Sliding Scale -) 1 vial SQ ACHS [facility]; Protocol Last Admin: 03/18/18 11:47 Dose: 6 units Metolazone (Zaroxolyn -) 5 mg PO ONCE ONE Stop: 03/18/18 13:01 Metoprolol Tartrate (Lopressor -) 25 mg PO BID [facility] Last Admin: 03/18/18 09:20 Dose: 25 mg Rosuvastatin Calcium (Crestor -) 10 mg PO HS [facility] Last Admin: 03/17/18 21:06 Dose: 10 mg Tamsulosin HCl (Flomax -) 0.4 mg PO BID@0830,2200 [facility] Last Admin: 03/18/18 08:25 Dose: 0.4 mg 78 year old gentleman with Hx of CHF, Hypertension, HLD, DM who presented with SOB and admitted for CHF exacerbation with PACO. #PACO on ? 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
--- NOTE | 2018-03-19 11:41 | PN ---
Teaching Attending Note Name of Resident: Urbano Bates ATTENDING PHYSICIAN STATEMENT I saw and evaluated the patient. I reviewed the resident's note and discussed the case with the resident. I agree with the resident's findings and plan as documented. SUBJECTIVE: Pt seen and examined in the ICU. Denies shortness of breath, chest pain or palpitations. Requesting to remove curtis. OBJECTIVE: Vital Signs Period Temp Pulse Resp BP Sys/Eisenberg Pulse Ox Last 24 Hr 97.7 F-98.2 F 83-103 12-22 83-106/57-75 96-98 Intake & Output 03/16/18 03/17/18 03/18/18 03/19/18 23:59 23:59 23:59 23:59 Intake Total 1400 2500 1450 280 Output Total 3700 3250 2775 Balance -2300 -750 -1325 280 Weight 81.391 kg 80.881 kg 80.5 kg 80.3 kg Gen: NAD at rest Heart: irregular Lung: decreased breath sounds at the bases Abd: soft, nontender Ext: no edema CBC, BMP 03/19/18 05:30 03/19/18 05:30 Active Medications Allopurinol (Zyloprim -) 100 mg PO DAILY [facility] Last Admin: 03/19/18 09:28 Dose: 100 mg Cholecalciferol (Vitamin D3 -) 2,000 unit PO DAILY [facility] Last Admin: 03/19/18 09:28 Dose: 2,000 unit Clopidogrel Bisulfate (Plavix -) 75 mg PO DAILY [facility] Last Admin: 03/19/18 09:28 Dose: 75 mg Docusate Sodium (Colace -) 100 mg PO BID PRN PRN Reason: CONSTIPATION Last Admin: 03/17/18 09:42 Dose: 100 mg Escitalopram Oxalate (Lexapro -) 10 mg PO DAILY [facility] Last Admin: 03/19/18 09:28 Dose: 10 mg Finasteride (Proscar -) 5 mg PO DAILY [facility] Last Admin: 03/19/18 09:28 Dose: 5 mg Furosemide (Lasix Injection -) 80 mg IVPUSH BID@0600,1400 [facility] Last Admin: 03/19/18 05:55 Dose: 80 mg Insulin Aspart (Novolog Vial Sliding Scale -) 1 vial SQ ACHS [facility]; Protocol Last Admin: 03/19/18 06:08 Dose: Not Given Metoprolol Tartrate (Lopressor -) 25 mg PO BID [facility] Last Admin: 03/19/18 09:27 Dose: 25 mg Rivaroxaban (Xarelto -) 15 mg PO DAILY@1800 [facility] Rosuvastatin Calcium (Crestor -) 10 mg PO HS [facility] Last Admin: 03/18/18 21:03 Dose: 10 mg Tamsulosin HCl (Flomax -) 0.4 mg PO BID@0830,2200 [facility] Last Admin: 03/19/18 09:28 Dose: 0.4 mg ASSESSMENT AND PLAN: Acute on Chronic Systolic Heart Failure Atrial Fibrillation CAD +Troponins likely Demand Ischemia Acute on Chronic Renal Failure HTN DM Hyperlipidemia Hematuria - continue lasix - monitor urine output, creatinine - daily weights - rate controlled - continue anticoagulation - O2 to keep SpO2 >90% - can monitor on floor
--- NOTE | 2018-03-19 17:48 | PN ---
Progress Note, Physician History of Present Illness: Pt is breathing is improved; still with ROJO but improved. Pt w/o CP, palpitations, abd pain, N, V. Holt cath was removed for TOV; minimal dribbling; after 4 hours bladder urine residual volume is slightly over 150 ml. Pt's ICU nurse at [facility]. Pt was seen and examined in ICU - Current Medication List Current Medications: Active Medications Allopurinol (Zyloprim -) 100 mg PO DAILY [facility] Last Admin: 03/19/18 09:28 Dose: 100 mg Cholecalciferol (Vitamin D3 -) 2,000 unit PO DAILY [facility] Last Admin: 03/19/18 09:28 Dose: 2,000 unit Clopidogrel Bisulfate (Plavix -) 75 mg PO DAILY [facility] Last Admin: 03/19/18 09:28 Dose: 75 mg Docusate Sodium (Colace -) 100 mg PO BID PRN PRN Reason: CONSTIPATION Last Admin: 03/17/18 09:42 Dose: 100 mg Escitalopram Oxalate (Lexapro -) 10 mg PO DAILY [facility] Last Admin: 03/19/18 09:28 Dose: 10 mg Finasteride (Proscar -) 5 mg PO DAILY [facility] Last Admin: 03/19/18 09:28 Dose: 5 mg Insulin Aspart (Novolog Vial Sliding Scale -) 1 vial SQ [facility]; Protocol Last Admin: 03/19/18 13:22 Dose: 6 units Metoprolol Tartrate (Lopressor -) 25 mg PO BID [facility] Last Admin: 03/19/18 09:27 Dose: 25 mg Rivaroxaban (Xarelto -) 15 mg PO DAILY@1800 [facility] Rosuvastatin Calcium (Crestor -) 10 mg PO [facility] Last Admin: 03/18/18 21:03 Dose: 10 mg Tamsulosin HCl (Flomax -) 0.4 mg PO BID@0830,2200 [facility] Last Admin: 03/19/18 09:28 Dose: 0.4 mg Torsemide (Demadex -) 80 mg PO BIDLASIX [facility] - [facility] Vital Signs: Vital Signs Temperature 98.2 F 03/19/18 02:00 Pulse Rate 87 03/19/18 14:00 Respiratory Rate 20 03/19/18 14:00 Blood Pressure 106/58 03/19/18 14:00 O2 Sat by Pulse Oximetry (%) 98 03/19/18 09:00 Constitutional: Yes: No Distress, Calm, Other (sitting in the chair) Cardiovascular: Yes: Regular Rate and Rhythm, S1, S2 Respiratory: Yes: Regular, Other (crackles at bases) Gastrointestinal: Yes: Normal Bowel Sounds, Soft. No: Tenderness Edema: No Neurological: Yes: Alert, Oriented Labs: CBC, BMP 03/19/18 05:30 03/19/18 05:30 Problem List - Problems (1) Acute systolic CHF (congestive heart failure) Code(s): I50.21 - ACUTE SYSTOLIC (CONGESTIVE) HEART FAILURE (2) Elevated troponin I level Code(s): R74.8 - ABNORMAL LEVELS OF OTHER SERUM ENZYMES (3) Hypotension Code(s): I95.9 - HYPOTENSION, UNSPECIFIED (4) PACO (acute kidney injury) Code(s): N17.9 - ACUTE KIDNEY FAILURE, UNSPECIFIED (5) CRF (chronic renal failure) Code(s): N18.9 - CHRONIC KIDNEY DISEASE, UNSPECIFIED (6) Hypercholesteremia Code(s): E78.00 - PURE HYPERCHOLESTEROLEMIA, UNSPECIFIED (7) Hypertension Code(s): I10 - ESSENTIAL (PRIMARY) HYPERTENSION (8) Pleural effusion Code(s): J90 - PLEURAL EFFUSION, NOT ELSEWHERE CLASSIFIED (9) CAD (coronary artery disease) Code(s): I25.10 - ATHSCL HEART DISEASE OF [place] CORONARY ARTERY W/O ANG PCTRS (10) AICD (automatic cardioverter/defibrillator) present Code(s): Z95.810 - PRESENCE OF AUTOMATIC (IMPLANTABLE) CARDIAC DEFIBRILLATOR (11) PAF (paroxysmal atrial fibrillation) Code(s): I48.0 - PAROXYSMAL ATRIAL FIBRILLATION (12) Urinary retention Code(s): R33.9 - RETENTION OF URINE, UNSPECIFIED (13) Hematuria Code(s): R31.9 - HEMATURIA, UNSPECIFIED Assessment/Plan Admitted to ICU. Serial CE -stable; CE were founfd to be elevated in the settings of PACO and CHF ( probable demand ischemia) ICU/CCM, Cardio, Renal, consults are appreciated Pt was switched to PO diuretic TOV; to monitor bladder urine volume; I spoke with pt's nurse -if above 400 ml to call MD. I spoke with pt about possible need to reinsert the Holt catheter; pt doesn't favor it but if needed will agree. Home med on hold at admission: Losartan, Spironolactone, Torsemide, Metformin. BGM with Novolog coverage. Pt is tolerating Metoprolol; pt's blood presure is improved. Pt would benefit of ACEI or ARB; can be restart it as outpatient. Creatinine level is improved - to monitor. AM labs. PT Pt's case was d/w pt's ICU nurse. Time for managing pt's care: over 40 minutes.
[2018-03-19] MEDS ORDERED: RIVAROXABAN 15 MG TABLET PO SCH (18:00)
[2018-03-19] MEDS ORDERED: PT OWN MED DRAWER 7, Y5N ONE (18:12)
[2018-03-19] MEDS ORDERED: DOCUSATE SODIUM 100 MG CAPSULE (FP) PO PRN (19:42)
[2018-03-19] MEDS: ROSUVASTATIN CA 10 MG TABLET (FP) PO SCH (21:51)
[2018-03-19] MEDS ORDERED: diphenhydrAMINE HCL 25 MG CAPSULE (FP) PO ONE (22:00)
[2018-03-20] MEDS: TORSEMIDE 20 MG TABLET (FP) PO SCH ×2 (05:49→13:13)
[2018-03-20 06:16] LABS: HEMATOCRIT 40.5 % (35.4-49); HEMOGLOBIN 13.2 GM/dL (11.7-16.9); MCH 27.7 pg (25.7-33.7); MCHC 32.5 g/dl (32.0-35.9); MEAN CELL VOLUME 85.3 fl (80-96); MEAN PLT VOLUME 7.6 fl (7.5-11.1); PLATELET COUNT 230 K/MM3 (134-434); RBC 4.75 M/mm3 (4.00-5.60); RDW 17.3 % (11.9-15.9); WHITE BLOOD COUNT 10.1 K/mm3 (4.0-10.0)
[2018-03-20] MEDS ORDERED: INSULIN (NOVOLOG) ASPART 100 UNITS/ML 10ML VIAL ONE ×2 (06:23→16:51)
[2018-03-20 06:42] LABS: ANION GAP 9 MMOL/L (8-16); BLOOD UREA NITROGEN 61 mg/dL (7-18); CALCIUM 9.8 mg/dL (8.5-10.1); CHLORIDE 89 mmol/L (98-107); CO2 38 mmol/L (21-32); CREATININE 1.6 mg/dL (0.7-1.3); GLUCOSE,RANDOM 150 mg/dL (74-106); MAGNESIUM 2.2 mg/dL (1.8-2.4); PHOSPHOROUS 3.3 mg/dL (2.5-4.9); POTASSIUM 3.3 mmol/L (3.5-5.1); SODIUM 136 mmol/L (136-145)
[2018-03-20] MEDS: INSULIN SLIDING SCALE (NOVOLOG) 1 VIAL SQ SCH ×4 (06:43→21:25)
[2018-03-20] MEDS: TAMSULOSIN HCL 0.4 MG CAP PO SCH ×2 (08:34→21:25)
--- NOTE | 2018-03-20 09:40 | PN ---
Progress Note (short form) - Note Progress Note: s: no cp palps dizzy; sob improving o: Vital Signs Period Temp Pulse Resp BP Sys/Eisenberg Pulse Ox Last 24 Hr 97.9 F-98.2 F 87-102 20-20 97-111/58-75 97 Constitutional: Yes: Well Nourished, No Distress, Calm Eyes: Yes: Conjunctiva Clear Neck: Yes: Supple, Trachea Midline Respiratory: Yes: cta bl nl eff Gastrointestinal: Yes: Normal Bowel Sounds, Soft Cardiovascular: Yes: Regular Rate and Rhythm JVD: Yes Heart Sounds: Yes: S1, S2 Edema: Yes Edema: no Psychiatric: Yes: Alert, Oriented no jaundice diaphoresis Current Medications Allopurinol (Zyloprim -) 100 mg PO DAILY [facility] Cholecalciferol (Vitamin D3 -) 2,000 unit PO DAILY [facility] Clopidogrel Bisulfate (Plavix -) 75 mg PO DAILY [facility] Docusate Sodium (Colace -) 100 mg PO Q12H PRN PRN Reason: CONSTIPATION Escitalopram Oxalate (Lexapro -) 10 mg PO DAILY [facility] Finasteride (Proscar -) 5 mg PO DAILY [facility] Insulin Aspart (Novolog Vial Sliding Scale -) 1 vial SQ ACHS [facility]; Protocol Last Admin: 03/20/18 06:43 Dose: Not Given Metoprolol Tartrate (Lopressor -) 25 mg PO BID [facility] Last Admin: 03/19/18 21:51 Dose: 25 mg Rivaroxaban (Xarelto -) 15 mg PO DAILY@1800 [facility] Rosuvastatin Calcium (Crestor -) 10 mg PO HS [facility] Last Admin: 03/19/18 21:51 Dose: 10 mg Tamsulosin HCl (Flomax -) 0.4 mg PO BID@0830,2200 [facility] Last Admin: 03/20/18 08:34 Dose: 0.4 mg Torsemide (Demadex -) 80 mg PO BIDLASIX [facility] Last Admin: 03/20/18 05:49 Dose: 80 mg echo with definity 07/2017 dilated LV, EF20-25%, with apical AK, HK of inf and lat [place], grade II diastolic dysfunction, cath 04/2017 MLM 80-90% with severe calc, 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 EF 15% dyskinetic apex, s/p LM PCI tele: afib, rate ok a/p 77M h/o HTN, HLD, DM, chronic systolic HF p/w shortness of breath for two weeks acute on chronic systolic HF s/p ICD - symptoms concerning for CHF exacerbation, BNP 8000 - at home was on torsemide 80 mg BID - continue bb as tolerated, hold losartan and spironolactone in setting of PACO - continues to diurese, BUN/Cr stable, was diuresed with lasix 80 mg IV BID - transitioned to torsemide 80 mg BID this morning, was able to urinate without curtis - has been walking without dyspnea, however was lightheaded this morning - medication for HF limited due to low BP, had been on spironolactone and losartan at home however has been hypotensive here on diuretics and low dose metoprolol (was on 100 mg BID at home, later decreased to 50 mg BID and now on 25 mg BID) - continue torsemide 80 mg BID, metoprolol 25 mg BID - monitor Cr, weights, I/O, chem7 CAD s/p LM stent 04/2017 - cont statin, plavix, metoprolol pos troponin -borderline trop elevation with flat trend and nl ck, not c/w acs afib - restarted on metoprolol 25 mg BID with improved rates, uptitrate as tolerated however has had low BP - cont xarelto PACO - may be cardiorenal, obstructive - improving with diuresis, curtis placement - renal ultrasound, no obstruction - Cr 1.4 in clinic 12/2017 - appreciate nephrology, urology recs HTN - low BP as above HLD - cont statin DM - manage per primary can transfer to med-surg floor
[2018-03-20] MEDS: METOPROLOL TARTRATE 25 MG TABLET (FP) PO SCH ×2 (10:10→21:25)
[2018-03-20] MEDS: CLOPIDOGREL BISULFATE 75 MG TABLET (FP) PO SCH (10:10)
[2018-03-20] MEDS: CHOLECALCIFEROL (VITAMIN D3) 1,000 UNIT TABLET (FP) PO SCH (10:11)
[2018-03-20] MEDS: ALLOPURINOL 100 MG TABLET (FP) PO SCH (10:12)
[2018-03-20] MEDS: FINASTERIDE 5 MG TABLET (FP) PO SCH (10:14)
[2018-03-20] MEDS: ESCITALOPRAM OXALATE 10 MG TABLET (FP) PO SCH (10:17)
--- NOTE | 2018-03-20 11:35 | PN ---
Progress Note, Physician History of Present Illness: Pt is breathing is improved. Pt w/o CP, palpitations, abd pain, N, V. Holt cath was removed for TOV, yesterday; pt is urinating w/o difficulty . Pt's nurse at [facility]. Pt was transferred to Telemetry. - Current Medication List Current Medications: Active Medications Allopurinol (Zyloprim -) 100 mg PO DAILY [facility] Last Admin: 03/20/18 10:12 Dose: 100 mg Cholecalciferol (Vitamin D3 -) 2,000 unit PO DAILY [facility] Last Admin: 03/20/18 10:11 Dose: 2,000 unit Clopidogrel Bisulfate (Plavix -) 75 mg PO DAILY [facility] Last Admin: 03/20/18 10:10 Dose: 75 mg Docusate Sodium (Colace -) 100 mg PO Q12H PRN PRN Reason: CONSTIPATION Escitalopram Oxalate (Lexapro -) 10 mg PO DAILY [facility] Last Admin: 03/20/18 10:17 Dose: 10 mg Finasteride (Proscar -) 5 mg PO DAILY [facility] Last Admin: 03/20/18 10:14 Dose: 5 mg Insulin Aspart (Novolog Vial Sliding Scale -) 1 vial SQ [facility]; Protocol Last Admin: 03/20/18 06:43 Dose: Not Given Metoprolol Tartrate (Lopressor -) 25 mg PO BID [facility] Last Admin: 03/20/18 10:10 Dose: 25 mg Rivaroxaban (Xarelto -) 15 mg PO DAILY@1800 [facility] Rosuvastatin Calcium (Crestor -) 10 mg PO HS [facility] Last Admin: 03/19/18 21:51 Dose: 10 mg Tamsulosin HCl (Flomax -) 0.4 mg PO BID@0830,2200 [facility] Last Admin: 03/20/18 08:34 Dose: 0.4 mg Torsemide (Demadex -) 80 mg PO BIDLASIX [facility] Last Admin: 03/20/18 05:49 Dose: 80 mg - Objective Vital Signs: Vital Signs Temperature 98.2 F 03/20/18 10:00 Pulse Rate 97 H 03/20/18 10:00 Respiratory Rate 20 03/20/18 10:00 Blood Pressure 98/77 03/20/18 10:00 O2 Sat by Pulse Oximetry (%) 97 03/20/18 09:00 Constitutional: Yes: No Distress, Calm Cardiovascular: Yes: Regular Rate and Rhythm, S1, S2 Respiratory: Yes: Regular, Rales, Other (minimal crackles and atelectasis at bases) Gastrointestinal: Yes: Normal Bowel Sounds, Soft. No: Tenderness Edema: No Neurological: Yes: Alert, Oriented Labs: CBC, BMP 03/20/18 05:30 03/20/18 05:30 Problem List - Problems (1) Acute systolic CHF (congestive heart failure) Code(s): I50.21 - ACUTE SYSTOLIC (CONGESTIVE) HEART FAILURE (2) Elevated troponin I level Code(s): R74.8 - ABNORMAL LEVELS OF OTHER SERUM ENZYMES (3) Hypotension Code(s): I95.9 - HYPOTENSION, UNSPECIFIED (4) PACO (acute kidney injury) Code(s): N17.9 - ACUTE KIDNEY FAILURE, UNSPECIFIED (5) CRF (chronic renal failure) Code(s): N18.9 - CHRONIC KIDNEY DISEASE, UNSPECIFIED (6) Hypercholesteremia Code(s): E78.00 - PURE HYPERCHOLESTEROLEMIA, UNSPECIFIED (7) Hypertension Code(s): I10 - ESSENTIAL (PRIMARY) HYPERTENSION (8) Pleural effusion Code(s): J90 - PLEURAL EFFUSION, NOT ELSEWHERE CLASSIFIED (9) CAD (coronary artery disease) Code(s): I25.10 - ATHSCL HEART DISEASE OF [place] CORONARY ARTERY W/O ANG PCTRS (10) AICD (automatic cardioverter/defibrillator) present Code(s): Z95.810 - PRESENCE OF AUTOMATIC (IMPLANTABLE) CARDIAC DEFIBRILLATOR (11) PAF (paroxysmal atrial fibrillation) Code(s): I48.0 - PAROXYSMAL ATRIAL FIBRILLATION (12) Urinary retention Code(s): R33.9 - RETENTION OF URINE, UNSPECIFIED (13) Hematuria Code(s): R31.9 - HEMATURIA, UNSPECIFIED (14) Hypokalemia Assessment/Plan: replete K; monitor level in AM Code(s): E87.6 - HYPOKALEMIA Assessment/Plan Admitted to ICU, now transferred to Telemetry. Serial CE -stable; CE were noticed to be elevated in the settings of PACO and CHF ( probable demand ischemia) ICU/CCM, Cardio, Renal, consults are appreciated Pt was switched to PO diuretic Holt was removed yesterday; pt is urinating well. Home med on hold at admission: Losartan, Spironolactone, Torsemide, Metformin. BGM with Novolog coverage. Pt is tolerating Metoprolol; pt's blood pressure is improved. Pt would benefit of ACEI or ARB; can be restart it as outpatient. Replete K AM labs. PT Pt's case was d/w pt's nurse.
[2018-03-20] MEDS ORDERED: POTASSIUM CHLORIDE TABS 20 MEQ TABLET.ER (FP) PO ONE (12:00)
--- NOTE | 2018-03-20 12:48 | PN ---
Progress Note (short form) - Note Progress Note: PULMONARY Breathing continues to improve. Holt catheter removed. Vital Signs Period Temp Pulse Resp BP Sys/Eisenberg Pulse Ox Last 24 Hr 97.9 F-98.2 F 87-102 20-20 97-111/58-77 97-97 Intake & Output 03/17/18 03/18/18 03/19/18 03/20/18 23:59 23:59 23:59 23:59 Intake Total 2500 1450 480 Output Total 3250 2775 1550 500 Balance -750 -1325 -1070 -500 Weight 80.881 kg 80.5 kg 80.3 kg 79.124 kg Gen: NAD in chair Heart: irregular Lung: decreased breath sounds at the bases Abd: soft, nontender Ext: no edema CBC, BMP 03/20/18 05:30 03/20/18 05:30 Active Medications Allopurinol (Zyloprim -) 100 mg PO DAILY [facility] Last Admin: 03/20/18 10:12 Dose: 100 mg Cholecalciferol (Vitamin D3 -) 2,000 unit PO DAILY [facility] Last Admin: 03/20/18 10:11 Dose: 2,000 unit Clopidogrel Bisulfate (Plavix -) 75 mg PO DAILY [facility] Last Admin: 03/20/18 10:10 Dose: 75 mg Docusate Sodium (Colace -) 100 mg PO Q12H PRN PRN Reason: CONSTIPATION Escitalopram Oxalate (Lexapro -) 10 mg PO DAILY [facility] Last Admin: 03/20/18 10:17 Dose: 10 mg Finasteride (Proscar -) 5 mg PO DAILY [facility] Last Admin: 03/20/18 10:14 Dose: 5 mg Insulin Aspart (Novolog Vial Sliding Scale -) 1 vial SQ [facility]; Protocol Last Admin: 03/20/18 11:52 Dose: 2 units Metoprolol Tartrate (Lopressor -) 25 mg PO BID [facility] Last Admin: 03/20/18 10:10 Dose: 25 mg Rivaroxaban (Xarelto -) 15 mg PO DAILY@1800 [facility] Rosuvastatin Calcium (Crestor -) 10 mg PO [facility] Last Admin: 03/19/18 21:51 Dose: 10 mg Tamsulosin HCl (Flomax -) 0.4 mg PO BID@0830,2200 [facility] Last Admin: 03/20/18 08:34 Dose: 0.4 mg Torsemide (Demadex -) 80 mg PO BIDLASIX [facility] Last Admin: 03/20/18 05:49 Dose: 80 mg A/P Acute on Chronic Systolic Heart Failure Atrial Fibrillation CAD +Troponins likely Demand Ischemia Acute on Chronic Renal Failure HTN DM Hyperlipidemia Hematuria - diuretics changed to torsemide - monitor urine output, creatinine - daily weights - replete lytes - rate controlled - continue anticoagulation - O2 to keep SpO2 >90%
[2018-03-20] MEDS ORDERED: PT OWN MED DRAWER 7, Y5N ONE (12:58)
--- NOTE | 2018-03-20 13:02 | PN ---
Progress Note (short form) - Note Progress Note: Renal follow up for PACO Pt seen and examined in Tele no acute complaints curtis discontinued, voiding well no cp, sob, abd pain, N/V/D making urine Vital Signs Temperature 98.2 F 03/20/18 10:00 Pulse Rate 97 H 03/20/18 10:00 Respiratory Rate 20 03/20/18 10:00 Blood Pressure 98/77 03/20/18 10:00 O2 Sat by Pulse Oximetry (%) 97 03/20/18 09:00 Intake & Output 03/17/18 03/18/18 03/19/18 03/20/18 23:59 23:59 23:59 23:59 Intake Total 2500 1450 480 Output Total 3250 2775 1550 500 Balance -750 -1325 -1070 -500 Weight 80.881 kg 80.5 kg 80.3 kg 79.124 kg NAD awake and alert RRR, No M/R + rales right lung base soft NT/ND no Le edema CBC, BMP 03/20/18 05:30 03/20/18 05:30 Current Medications Allopurinol (Zyloprim -) 100 mg PO DAILY [facility] Last Admin: 03/20/18 10:12 Dose: 100 mg Cholecalciferol (Vitamin D3 -) 2,000 unit PO DAILY [facility] Last Admin: 03/20/18 10:11 Dose: 2,000 unit Clopidogrel Bisulfate (Plavix -) 75 mg PO DAILY [facility] Last Admin: 03/20/18 10:10 Dose: 75 mg Docusate Sodium (Colace -) 100 mg PO Q12H PRN PRN Reason: CONSTIPATION Escitalopram Oxalate (Lexapro -) 10 mg PO DAILY [facility] Last Admin: 03/20/18 10:17 Dose: 10 mg Finasteride (Proscar -) 5 mg PO DAILY [facility] Last Admin: 03/20/18 10:14 Dose: 5 mg Insulin Aspart (Novolog Vial Sliding Scale -) 1 vial SQ ACHS [facility]; Protocol Last Admin: 03/20/18 11:52 Dose: 2 units Metoprolol Tartrate (Lopressor -) 25 mg PO BID [facility] Last Admin: 03/20/18 10:10 Dose: 25 mg Rivaroxaban (Xarelto -) 15 mg PO DAILY@1800 [facility] Rosuvastatin Calcium (Crestor -) 10 mg PO HS [facility] Last Admin: 03/19/18 21:51 Dose: 10 mg Tamsulosin HCl (Flomax -) 0.4 mg PO BID@0830,2200 [facility] Last Admin: 03/20/18 08:34 Dose: 0.4 mg Torsemide (Demadex -) 80 mg PO BIDLASIX [facility] Last Admin: 03/20/18 05:49 Dose: 80 mg 78 year old gentleman with Hx of CHF, Hypertension, HLD, DM who presented with SOB and admitted for CHF exacerbation with PACO. #PACO on ? 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
[2018-03-20] MEDS: RIVAROXABAN 15 MG TABLET PO SCH (17:27)
[2018-03-20] MEDS: ROSUVASTATIN CA 10 MG TABLET (FP) PO SCH (21:24)
[2018-03-21] MEDS: INSULIN SLIDING SCALE (NOVOLOG) 1 VIAL SQ SCH ×4 (06:29→21:32)
[2018-03-21] MEDS: TORSEMIDE 20 MG TABLET (FP) PO SCH ×2 (06:29→16:38)
[2018-03-21 06:37] LABS: HEMOGLOBIN 12.8 GM/dL (11.7-16.9); MCH 27.5 pg (25.7-33.7); MEAN CELL VOLUME 85.8 fl (80-96); MEAN PLT VOLUME 7.4 fl (7.5-11.1); PLATELET COUNT 241 K/MM3 (134-434); RBC 4.67 M/mm3 (4.00-5.60); WHITE BLOOD COUNT 9.6 K/mm3 (4.0-10.0)
[2018-03-21 06:54] LABS: ANION GAP 12 MMOL/L (8-16); BLOOD UREA NITROGEN 63 mg/dL (7-18); CALCIUM 9.6 mg/dL (8.5-10.1); CHLORIDE 91 mmol/L (98-107); CO2 35 mmol/L (21-32); GLUCOSE,RANDOM 160 mg/dL (74-106); MAGNESIUM 2.3 mg/dL (1.8-2.4); POTASSIUM 3.2 mmol/L (3.5-5.1); SODIUM 138 mmol/L (136-145)
[2018-03-21 06:56] LABS: CREATININE 1.6 mg/dL (0.7-1.3)
--- NOTE | 2018-03-21 09:38 | PN ---
Progress Note, Physician History of Present Illness: Pt is breathing is improved. Pt'sappetite is good. Pt w/o fever, CP, palpitations, abd pain, N, V. - Current Medication List Current Medications: Active Medications Allopurinol (Zyloprim -) 100 mg PO DAILY [facility] Last Admin: 03/20/18 10:12 Dose: 100 mg Cholecalciferol (Vitamin D3 -) 2,000 unit PO DAILY [facility] Last Admin: 03/20/18 10:11 Dose: 2,000 unit Clopidogrel Bisulfate (Plavix -) 75 mg PO DAILY [facility] Last Admin: 03/20/18 10:10 Dose: 75 mg Docusate Sodium (Colace -) 100 mg PO Q12H PRN PRN Reason: CONSTIPATION Escitalopram Oxalate (Lexapro -) 10 mg PO DAILY [facility] Last Admin: 03/20/18 10:17 Dose: 10 mg Finasteride (Proscar -) 5 mg PO DAILY [facility] Last Admin: 03/20/18 10:14 Dose: 5 mg Insulin Aspart (Novolog Vial Sliding Scale -) 1 vial SQ [facility]; Protocol Last Admin: 03/21/18 06:29 Dose: Not Given Metoprolol Tartrate (Lopressor -) 25 mg PO BID [facility] Last Admin: 03/20/18 21:25 Dose: 25 mg Potassium Chloride (K-Dur -) 40 meq PO ONCE ONE Stop: 03/21/18 10:01 Rivaroxaban (Xarelto -) 15 mg PO DAILY@1800 [facility] Last Admin: 03/20/18 17:27 Dose: 15 mg Rosuvastatin Calcium (Crestor -) 10 mg PO HS [facility] Last Admin: 03/20/18 21:24 Dose: 10 mg Tamsulosin HCl (Flomax -) 0.4 mg PO BID@0830,2200 [facility] Last Admin: 03/20/18 21:25 Dose: 0.4 mg Torsemide (Demadex -) 80 mg PO BIDLASIX [facility] Last Admin: 03/21/18 06:29 Dose: 80 mg - Objective Vital Signs: Vital Signs Temperature 98.4 F 03/21/18 03:00 Pulse Rate 86 03/21/18 05:11 Respiratory Rate 17 03/21/18 05:11 Blood Pressure 93/75 03/21/18 05:11 O2 Sat by Pulse Oximetry (%) 97 03/20/18 20:43 Constitutional: Yes: No Distress, Calm Cardiovascular: Yes: Regular Rate and Rhythm, S1, S2 Respiratory: Yes: Regular, CTA Bilaterally, Rales (at bases, R > L) Gastrointestinal: Yes: Normal Bowel Sounds, Soft, Other. No: Tenderness Edema: No Neurological: Yes: Alert, Oriented Labs: CBC, BMP 03/21/18 05:30 03/21/18 05:30 Problem List - Problems (1) Acute systolic CHF (congestive heart failure) Code(s): I50.21 - ACUTE SYSTOLIC (CONGESTIVE) HEART FAILURE (2) Elevated troponin I level Code(s): R74.8 - ABNORMAL LEVELS OF OTHER SERUM ENZYMES (3) Hypotension Code(s): I95.9 - HYPOTENSION, UNSPECIFIED (4) PACO (acute kidney injury) Code(s): N17.9 - ACUTE KIDNEY FAILURE, UNSPECIFIED (5) CRF (chronic renal failure) Code(s): N18.9 - CHRONIC KIDNEY DISEASE, UNSPECIFIED (6) Hypercholesteremia Code(s): E78.00 - PURE HYPERCHOLESTEROLEMIA, UNSPECIFIED (7) Hypertension Code(s): I10 - ESSENTIAL (PRIMARY) HYPERTENSION (8) Pleural effusion Code(s): J90 - PLEURAL EFFUSION, NOT ELSEWHERE CLASSIFIED (9) CAD (coronary artery disease) Code(s): I25.10 - ATHSCL HEART DISEASE OF [place] CORONARY ARTERY W/O ANG PCTRS (10) AICD (automatic cardioverter/defibrillator) present Code(s): Z95.810 - PRESENCE OF AUTOMATIC (IMPLANTABLE) CARDIAC DEFIBRILLATOR (11) PAF (paroxysmal atrial fibrillation) Code(s): I48.0 - PAROXYSMAL ATRIAL FIBRILLATION (12) Urinary retention Code(s): R33.9 - RETENTION OF URINE, UNSPECIFIED (13) Hematuria Code(s): R31.9 - HEMATURIA, UNSPECIFIED (14) Hypokalemia Code(s): E87.6 - HYPOKALEMIA Assessment/Plan Admitted to ICU, now transferred to Telemetry. Serial CE -stable; CE were noticed to be elevated in the settings of PACO and CHF ( probable demand ischemia) ICU/CCM, Cardio, Renal, consults are appreciated Pt was switched to PO diuretic Holt was removed on 03/19/2018; pt is urinating well. Home med on hold at admission: Losartan, Spironolactone, Torsemide, Metformin. BGM with Novolog coverage. Pt is tolerating Metoprolol; pt's blood pressure is improved. Pt would benefit of ACEI or ARB; can be restart it as outpatient. Replete K (40 mEq daily and 40 mEq once tonight) AM labs. PT Pt's case was d/w pt's nurse.
[2018-03-21] MEDS ORDERED: PT OWN MED DRAWER 7, Y5N ONE ×3 (09:41→18:22)
[2018-03-21] MEDS: TAMSULOSIN HCL 0.4 MG CAP PO SCH ×2 (09:46→21:28)
[2018-03-21] MEDS: ESCITALOPRAM OXALATE 10 MG TABLET (FP) PO SCH (09:46)
[2018-03-21] MEDS: CLOPIDOGREL BISULFATE 75 MG TABLET (FP) PO SCH (09:46)
[2018-03-21] MEDS: ALLOPURINOL 100 MG TABLET (FP) PO SCH (09:46)
[2018-03-21] MEDS: METOPROLOL TARTRATE 25 MG TABLET (FP) PO SCH ×2 (09:46→21:28)
[2018-03-21] MEDS: FINASTERIDE 5 MG TABLET (FP) PO SCH (09:46)
[2018-03-21] MEDS: CHOLECALCIFEROL (VITAMIN D3) 1,000 UNIT TABLET (FP) PO SCH (09:46)
[2018-03-21] MEDS ORDERED: POTASSIUM CHLORIDE TABS 20 MEQ TABLET.ER (FP) PO SCH (10:00)
[2018-03-21] MEDS ORDERED: POTASSIUM CHLORIDE TABS 20 MEQ TABLET.ER (FP) PO ONE ×2 (10:00→22:00)
--- NOTE | 2018-03-21 10:34 | PN ---
Progress Note (short form) - Note Progress Note: s: no cp palps dizzy sob. feels at baseline, wants to go home. o: Vital Signs Period Temp Pulse Resp BP Sys/Eisenberg Pulse Ox Last 24 Hr 98.3 F-98.4 F 85-104 13-24 92-105/57-77 97 Constitutional: Yes: Well Nourished, No Distress, Calm Eyes: Yes: Conjunctiva Clear Neck: Yes: Supple, Trachea Midline Respiratory: Yes: cta bl nl eff Gastrointestinal: Yes: Normal Bowel Sounds, Soft Cardiovascular: Yes: Regular Rate and Rhythm JVD: Yes Heart Sounds: Yes: S1, S2 Edema: Yes Edema: no Psychiatric: Yes: Alert, Oriented no jaundice diaphoresis Current Medications Generic Name Dose Route Start Last Admin Trade Name Freq PRN Reason Stop Dose Admin Allopurinol 100 mg 03/20/18 10:00 03/21/18 09:46 Zyloprim - PO 100 mg DAILY [facility] Administration Cholecalciferol 2,000 unit 03/20/18 10:00 03/21/18 09:46 Vitamin D3 - PO 2,000 unit DAILY [facility] Administration Clopidogrel Bisulfate 75 mg 03/20/18 10:00 03/21/18 09:46 Plavix - PO 75 mg DAILY [facility] Administration Docusate Sodium 100 mg 03/19/18 19:42 Colace - PO Q12H PRN CONSTIPATION Escitalopram Oxalate 10 mg 03/20/18 10:00 03/21/18 09:46 Lexapro - PO 10 mg DAILY [facility] Administration Finasteride 5 mg 03/20/18 10:00 03/21/18 09:46 Proscar - PO 5 mg DAILY [facility] Administration Insulin Aspart 1 vial 03/19/18 22:00 03/21/18 06:29 Novolog Vial Sliding Scale - SQ Not Given ACHS [facility] Protocol Metoprolol Tartrate 25 mg 03/19/18 22:00 03/21/18 09:46 Lopressor - PO 25 mg BID [facility] Administration Potassium Chloride 40 meq 03/21/18 10:00 K-Dur - PO DAILY [facility] Potassium Chloride 40 meq 03/21/18 22:00 K-Dur - PO 03/21/18 22:01 ONCE ONE Rivaroxaban 15 mg 03/20/18 18:00 03/20/18 17:27 Xarelto - PO 15 mg DAILY@1800 [facility] Administration Rosuvastatin Calcium 10 mg 03/19/18 22:00 03/20/18 21:24 Crestor - PO 10 mg HS [facility] Administration Tamsulosin HCl 0.4 mg 03/19/18 22:00 03/21/18 09:46 Flomax - PO 0.4 mg BID@0830,2200 [facility] Administration Torsemide 80 mg 03/20/18 06:00 03/21/18 06:29 Demadex - PO 80 mg BIDLASIX [facility] Administration CBC, BMP 03/21/18 05:30 03/21/18 05:30 echo with definity 07/2017 dilated LV, EF20-25%, with apical AK, HK of inf and lat [place], grade II diastolic dysfunction, cath 04/2017 MLM 80-90% with severe calc, pLAD [employer] fills with collat from LCX and RCA. EF 15% dyskinetic apex, s/p LM PCI tele: afib, rate ok cute on chronic systolic HF s/p ICD - symptoms concerning for CHF exacerbation, BNP 8000 - at home was on torsemide 80 mg BID - continue bb as tolerated, hold losartan and spironolactone in setting of PACO - continues to diurese, BUN/Cr stable, was diuresed with lasix 80 mg IV BID - transitioned to torsemide 80 mg BID, able to urinate without curtis - has been walking without dyspnea - medication for HF limited due to low BP, had been on spironolactone and losartan at home however has been hypotensive here on diuretics and low dose metoprolol (was on 100 mg BID at home, later decreased to 50 mg BID and now on 25 mg BID) - continue torsemide 80 mg BID, metoprolol 25 mg BID - k repletion CAD s/p LM stent 04/2017 - cont statin, plavix, metoprolol pos troponin -borderline trop elevation with flat trend and nl ck, not c/w acs afib - restarted on metoprolol 25 mg BID with improved rates, uptitrate as tolerated however has had low BP - cont xarelto PACO - may be cardiorenal, obstructive - improving with diuresis, curtis placement - renal ultrasound, no obstruction - Cr 1.4 in clinic 12/2017 - appreciate nephrology, urology recs HTN - low BP as above HLD - cont statin DM - manage per primary cardiac matute stable
--- NOTE | 2018-03-21 11:54 | PN ---
Progress Note (short form) - Note Progress Note: Renal follow up for PACO Pt seen and examined in Tele awake and alert no acute complaints no sob, cp, abd pain, N/V/D voiding w/o catheter Vital Signs Temperature 98.4 F 03/21/18 03:00 Pulse Rate 86 03/21/18 05:11 Respiratory Rate 17 03/21/18 05:11 Blood Pressure 93/75 03/21/18 05:11 O2 Sat by Pulse Oximetry (%) 97 03/20/18 20:43 Intake & Output 03/18/18 03/19/18 03/20/18 03/21/18 23:59 23:59 23:59 23:59 Intake Total 1450 480 760 200 Output Total 2775 1550 900 400 Balance -1325 -1070 -140 -200 Weight 80.5 kg 80.3 kg 79.124 kg NAD awake and alert RRR, No M/R + rales right lung base soft NT/ND no Le edema CBC, BMP 03/21/18 05:30 03/21/18 05:30 Current Medications Allopurinol (Zyloprim -) 100 mg PO DAILY [facility] Last Admin: 03/21/18 09:46 Dose: 100 mg Cholecalciferol (Vitamin D3 -) 2,000 unit PO DAILY [facility] Last Admin: 03/21/18 09:46 Dose: 2,000 unit Clopidogrel Bisulfate (Plavix -) 75 mg PO DAILY [facility] Last Admin: 03/21/18 09:46 Dose: 75 mg Docusate Sodium (Colace -) 100 mg PO Q12H PRN PRN Reason: CONSTIPATION Escitalopram Oxalate (Lexapro -) 10 mg PO DAILY [facility] Last Admin: 03/21/18 09:46 Dose: 10 mg Finasteride (Proscar -) 5 mg PO DAILY [facility] Last Admin: 03/21/18 09:46 Dose: 5 mg Insulin Aspart (Novolog Vial Sliding Scale -) 1 vial SQ ACHS [facility]; Protocol Last Admin: 03/21/18 11:36 Dose: 4 units Metoprolol Tartrate (Lopressor -) 25 mg PO BID [facility] Last Admin: 03/21/18 09:46 Dose: 25 mg Potassium Chloride (K-Dur -) 40 meq PO DAILY [facility] Last Admin: 03/21/18 10:51 Dose: 40 meq Potassium Chloride (K-Dur -) 40 meq PO ONCE ONE Stop: 03/21/18 22:01 Rivaroxaban (Xarelto -) 15 mg PO DAILY@1800 [facility] Last Admin: 03/20/18 17:27 Dose: 15 mg Rosuvastatin Calcium (Crestor -) 10 mg PO HS [facility] Last Admin: 03/20/18 21:24 Dose: 10 mg Tamsulosin HCl (Flomax -) 0.4 mg PO BID@0830,2200 [facility] Last Admin: 03/21/18 09:46 Dose: 0.4 mg Torsemide (Demadex -) 80 mg PO BIDLASIX [facility] Last Admin: 03/21/18 06:29 Dose: 80 mg 78 year old gentleman with Hx of CHF, Hypertension, HLD, DM who presented with SOB and admitted for CHF exacerbation with PACO. #PACO on ? 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 Efrain Csaey DO
--- NOTE | 2018-03-21 12:36 | PN ---
Progress Note (short form) - Note Progress Note: PULMONARY Breathing continues to improve. No hematuria. Vital Signs Period Temp Pulse Resp BP Sys/Eisenberg Pulse Ox Last 24 Hr 98.3 F-98.4 F 86-104 13-22 93-105/57-75 97-97 Intake & Output 03/18/18 03/19/18 03/20/18 03/21/18 23:59 23:59 23:59 23:59 Intake Total 1450 480 760 200 Output Total 2775 1550 900 400 Balance -1325 -1070 -140 -200 Weight 80.5 kg 80.3 kg 79.124 kg Gen: NAD in chair Heart: irregular Lung: decreased breath sounds at the bases Abd: soft, nontender Ext: no edema CBC, BMP 03/21/18 05:30 03/21/18 05:30 Active Medications Allopurinol (Zyloprim -) 100 mg PO DAILY [facility] Last Admin: 03/21/18 09:46 Dose: 100 mg Cholecalciferol (Vitamin D3 -) 2,000 unit PO DAILY [facility] Last Admin: 03/21/18 09:46 Dose: 2,000 unit Clopidogrel Bisulfate (Plavix -) 75 mg PO DAILY [facility] Last Admin: 03/21/18 09:46 Dose: 75 mg Docusate Sodium (Colace -) 100 mg PO Q12H PRN PRN Reason: CONSTIPATION Escitalopram Oxalate (Lexapro -) 10 mg PO DAILY [facility] Last Admin: 03/21/18 09:46 Dose: 10 mg Finasteride (Proscar -) 5 mg PO DAILY [facility] Last Admin: 03/21/18 09:46 Dose: 5 mg Insulin Aspart (Novolog Vial Sliding Scale -) 1 vial SQ [facility]; Protocol Last Admin: 03/21/18 11:36 Dose: 4 units Metoprolol Tartrate (Lopressor -) 25 mg PO BID [facility] Last Admin: 03/21/18 09:46 Dose: 25 mg Potassium Chloride (K-Dur -) 40 meq PO ONCE ONE Stop: 03/21/18 22:01 Potassium Chloride (K-Dur -) 40 meq PO BID [facility] Rivaroxaban (Xarelto -) 15 mg PO DAILY@1800 [facility] Last Admin: 03/20/18 17:27 Dose: 15 mg Rosuvastatin Calcium (Crestor -) 10 mg PO HS [facility] Last Admin: 03/20/18 21:24 Dose: 10 mg Tamsulosin HCl (Flomax -) 0.4 mg PO BID@0830,2200 [facility] Last Admin: 03/21/18 09:46 Dose: 0.4 mg Torsemide (Demadex -) 80 mg PO BIDLASIX [facility] Last Admin: 03/21/18 06:29 Dose: 80 mg Zolpidem Tartrate (Ambien -) 5 mg PO HS PRN PRN Reason: INSOMNIA A/P Acute on Chronic Systolic Heart Failure Atrial Fibrillation CAD +Troponins likely Demand Ischemia Acute on Chronic Renal Failure HTN DM Hyperlipidemia Hematuria - continue torsemide - monitor urine output, creatinine - daily weights - replete lytes - rate controlled - continue anticoagulation - O2 to keep SpO2 >90%
[2018-03-21] MEDS: RIVAROXABAN 15 MG TABLET PO SCH (18:18)
[2018-03-21] MEDS: ROSUVASTATIN CA 10 MG TABLET (FP) PO SCH (21:28)
[2018-03-21] MEDS: ZOLPIDEM TARTRATE 5 MG TABLET PO PRN (21:28)
[2018-03-21] MEDS ORDERED: INSULIN (NOVOLOG) ASPART 100 UNITS/ML 10ML VIAL ONE (21:31)
[2018-03-22 06:32] LABS: ANION GAP 6 MMOL/L (8-16); BLOOD UREA NITROGEN 65 mg/dL (7-18); CALCIUM 9.2 mg/dL (8.5-10.1); CHLORIDE 95 mmol/L (98-107); CO2 36 mmol/L (21-32); GLUCOSE,RANDOM 133 mg/dL (74-106); MAGNESIUM 2.2 mg/dL (1.8-2.4); POTASSIUM 3.9 mmol/L (3.5-5.1); SODIUM 137 mmol/L (136-145)
[2018-03-22] MEDS: POTASSIUM CHLORIDE TABS 20 MEQ TABLET.ER (FP) PO SCH ×3 (06:32→22:06)
[2018-03-22] MEDS: TORSEMIDE 20 MG TABLET (FP) PO SCH ×2 (06:32→13:38)
[2018-03-22 06:33] LABS: CREATININE 1.7 mg/dL (0.7-1.3)
[2018-03-22] MEDS: INSULIN SLIDING SCALE (NOVOLOG) 1 VIAL SQ SCH ×4 (06:33→21:18)
[2018-03-22] MEDS: TAMSULOSIN HCL 0.4 MG CAP PO SCH ×2 (09:00→21:24)
--- NOTE | 2018-03-22 09:44 | PN ---
Progress Note (short form) - Note Progress Note: UROLOGY NOTE 78 Y/O Male patient with history of BPH and chronic retention, curtis catheter removed 3 days ago, last PVR 400 ML but patient pass 300ml today morning and he is refusing to have curtis catheter, he had history of trumatic curtis 2 weeks ago. O/E soft lax abd no palpable bladder. s.cret. 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
[2018-03-22] MEDS: METOPROLOL TARTRATE 25 MG TABLET (FP) PO SCH ×2 (09:47→21:24)
[2018-03-22] MEDS: CHOLECALCIFEROL (VITAMIN D3) 1,000 UNIT TABLET (FP) PO SCH (09:47)
[2018-03-22] MEDS: ESCITALOPRAM OXALATE 10 MG TABLET (FP) PO SCH (09:47)
[2018-03-22] MEDS: CLOPIDOGREL BISULFATE 75 MG TABLET (FP) PO SCH (09:47)
[2018-03-22] MEDS: FINASTERIDE 5 MG TABLET (FP) PO SCH (09:47)
[2018-03-22] MEDS: ALLOPURINOL 100 MG TABLET (FP) PO SCH (09:54)
--- NOTE | 2018-03-22 09:55 | PN ---
Progress Note (short form) - Note Progress Note: PULMONARY Breathing continues to improve. No hematuria. Still some urinary retention. Vital Signs Period Temp Pulse Resp BP Sys/Eisenberg Pulse Ox Last 24 Hr 97.6 F-98.7 F 92-105 15-96 90-111/64-76 94 Intake & Output 03/19/18 03/20/18 03/21/18 03/22/18 23:59 23:59 23:59 23:59 Intake Total 480 760 700 Output Total 8896 796 7683 550 Balance -1070 -140 -300 -550 Weight 80.3 kg 79.124 kg Gen: NAD in chair Heart: irregular Lung: decreased breath sounds at the bases Abd: soft, nontender Ext: no edema CBC, BMP 03/21/18 05:30 03/22/18 05:30 Active Medications Allopurinol (Zyloprim -) 100 mg PO DAILY [facility] Last Admin: 03/22/18 09:54 Dose: 100 mg Cholecalciferol (Vitamin D3 -) 2,000 unit PO DAILY [facility] Last Admin: 03/22/18 09:47 Dose: 2,000 unit Clopidogrel Bisulfate (Plavix -) 75 mg PO DAILY [facility] Last Admin: 03/22/18 09:47 Dose: 75 mg Docusate Sodium (Colace -) 100 mg PO Q12H PRN PRN Reason: CONSTIPATION Escitalopram Oxalate (Lexapro -) 10 mg PO DAILY [facility] Last Admin: 03/22/18 09:47 Dose: 10 mg Finasteride (Proscar -) 5 mg PO DAILY [facility] Last Admin: 03/22/18 09:47 Dose: 5 mg Insulin Aspart (Novolog Vial Sliding Scale -) 1 vial SQ [facility]; Protocol Last Admin: 03/22/18 06:33 Dose: Not Given Metoprolol Tartrate (Lopressor -) 25 mg PO BID [facility] Last Admin: 03/22/18 09:47 Dose: 25 mg Potassium Chloride (K-Dur -) 40 meq PO BID [facility] Last Admin: 03/22/18 09:47 Dose: 40 meq Rivaroxaban (Xarelto -) 15 mg PO DAILY@1800 [facility] Last Admin: 03/21/18 18:18 Dose: 15 mg Rosuvastatin Calcium (Crestor -) 10 mg PO HS [facility] Last Admin: 03/21/18 21:28 Dose: 10 mg Tamsulosin HCl (Flomax -) 0.4 mg PO BID@0830,2200 [facility] Last Admin: 03/22/18 09:00 Dose: 0.4 mg Torsemide (Demadex -) 80 mg PO BIDLASIX [facility] Last Admin: 03/22/18 06:32 Dose: 80 mg Zolpidem Tartrate (Ambien -) 5 mg PO HS PRN PRN Reason: INSOMNIA Last Admin: 03/21/18 21:28 Dose: 5 mg A/P Acute on Chronic Systolic Heart Failure Atrial Fibrillation CAD +Troponins likely Demand Ischemia Acute on Chronic Renal Failure HTN DM Hyperlipidemia Hematuria - continue torsemide - monitor urine output, creatinine - daily weights - replete lytes - rate controlled - continue anticoagulation - O2 to keep SpO2 >90%
--- NOTE | 2018-03-22 09:56 | PN ---
Progress Note (short form) - Note Progress Note: s: no cp palps dizzy sob. feels at baseline, wants to go home. o: Vital Signs Period Temp Pulse Resp BP Sys/Eisenberg Pulse Ox Last 24 Hr 97.6 F-98.7 F 92-105 15-96 90-111/64-76 94 Constitutional: Yes: Well Nourished, No Distress, Calm Eyes: Yes: Conjunctiva Clear Neck: Yes: Supple, Trachea Midline Respiratory: Yes: cta bl nl eff Gastrointestinal: Yes: Normal Bowel Sounds, Soft Cardiovascular: Yes: Regular Rate and Rhythm JVD: Yes Heart Sounds: Yes: S1, S2 Edema: Yes Edema: no Psychiatric: Yes: Alert, Oriented no jaundice diaphoresis Current Medications Generic Name Dose Route Start Last Admin Trade Name Freq PRN Reason Stop Dose Admin Allopurinol 100 mg 03/20/18 10:00 03/22/18 09:54 Zyloprim - PO 100 mg DAILY [facility] Administration Cholecalciferol 2,000 unit 03/20/18 10:00 03/22/18 09:47 Vitamin D3 - PO 2,000 unit DAILY [facility] Administration Clopidogrel Bisulfate 75 mg 03/20/18 10:00 03/22/18 09:47 Plavix - PO 75 mg DAILY [facility] Administration Docusate Sodium 100 mg 03/19/18 19:42 Colace - PO Q12H PRN CONSTIPATION Escitalopram Oxalate 10 mg 03/20/18 10:00 03/22/18 09:47 Lexapro - PO 10 mg DAILY [facility] Administration Finasteride 5 mg 03/20/18 10:00 03/22/18 09:47 Proscar - PO 5 mg DAILY [facility] Administration Insulin Aspart 1 vial 03/19/18 22:00 03/22/18 06:33 Novolog Vial Sliding Scale - SQ Not Given ACHS [facility] Protocol Metoprolol Tartrate 25 mg 03/19/18 22:00 03/22/18 09:47 Lopressor - PO 25 mg BID [facility] Administration Potassium Chloride 40 meq 03/22/18 06:00 03/22/18 09:47 K-Dur - PO 40 meq BID [facility] Administration Rivaroxaban 15 mg 03/20/18 18:00 03/21/18 18:18 Xarelto - PO 15 mg DAILY@1800 [facility] Administration Rosuvastatin Calcium 10 mg 03/19/18 22:00 03/21/18 21:28 Crestor - PO 10 mg HS [facility] Administration Tamsulosin HCl 0.4 mg 03/19/18 22:00 03/22/18 09:00 Flomax - PO 0.4 mg BID@0830,2200 [facility] Administration Torsemide 80 mg 03/20/18 06:00 03/22/18 06:32 Demadex - PO 80 mg BIDLASIX [facility] Administration Zolpidem Tartrate 5 mg 03/21/18 11:56 03/21/18 21:28 Ambien - PO 5 mg HS PRN Administration INSOMNIA CBC, BMP 03/21/18 05:30 03/22/18 05:30 echo with definity 07/2017 dilated LV, EF20-25%, with apical AK, HK of inf and lat [place], grade II diastolic dysfunction, cath 04/2017 MLM 80-90% with severe calc, pLAD [employer] fills with collat from LCX and RCA. EF 15% dyskinetic apex, s/p LM PCI tele: afib, rate ok cute on chronic systolic HF s/p ICD - symptoms concerning for CHF exacerbation, BNP 8000 - at home was on torsemide 80 mg BID - continue bb as tolerated, hold losartan and spironolactone in setting of PACO - continues to diurese, BUN/Cr stable, was diuresed with lasix 80 mg IV BID - transitioned to torsemide 80 mg BID, able to urinate without curtis - has been walking without dyspnea - medication for HF limited due to low BP, had been on spironolactone and losartan at home however has been hypotensive here on diuretics and low dose metoprolol (was on 100 mg BID at home, later decreased to 50 mg BID and now on 25 mg BID) - continue torsemide 80 mg BID, metoprolol 25 mg BID - k repletion CAD s/p LM stent 04/2017 - cont statin, plavix, metoprolol pos troponin -borderline trop elevation with flat trend and nl ck, not c/w acs afib - restarted on metoprolol 25 mg BID with improved rates, uptitrate as tolerated however has had low BP - cont xarelto PACO - may be cardiorenal, obstructive - improving with diuresis, curtis placement - renal ultrasound, no obstruction - Cr 1.4 in clinic 12/2017 - appreciate nephrology, urology recs HTN - low BP as above HLD - cont statin DM - manage per primary cardiac matute stable for dc
[2018-03-22] MEDS ORDERED: POTASSIUM CHLORIDE TABS 20 MEQ TABLET.ER (FP) PO SCH (10:00)
--- NOTE | 2018-03-22 10:37 | PN ---
Progress Note, Physician History of Present Illness: Pt w/o fever, CP, palpitations, abd pain, N, V. Pt states that is urinating normal, no pain. Pt is aware of last night urine volume in his bladder and recommendation for Holt catheter placement; pt has been refusing Holt cath placement since. - Current Medication List Current Medications: Active Medications Allopurinol (Zyloprim -) 100 mg PO DAILY [facility] Last Admin: 03/22/18 09:54 Dose: 100 mg Cholecalciferol (Vitamin D3 -) 2,000 unit PO DAILY [facility] Last Admin: 03/22/18 09:47 Dose: 2,000 unit Clopidogrel Bisulfate (Plavix -) 75 mg PO DAILY [facility] Last Admin: 03/22/18 09:47 Dose: 75 mg Docusate Sodium (Colace -) 100 mg PO Q12H PRN PRN Reason: CONSTIPATION Escitalopram Oxalate (Lexapro -) 10 mg PO DAILY [facility] Last Admin: 03/22/18 09:47 Dose: 10 mg Finasteride (Proscar -) 5 mg PO DAILY [facility] Last Admin: 03/22/18 09:47 Dose: 5 mg Insulin Aspart (Novolog Vial Sliding Scale -) 1 vial SQ ACHS [facility]; Protocol Last Admin: 03/22/18 06:33 Dose: Not Given Metoprolol Tartrate (Lopressor -) 25 mg PO BID [facility] Last Admin: 03/22/18 09:47 Dose: 25 mg Potassium Chloride (K-Dur -) 40 meq PO BID [facility] Last Admin: 03/22/18 09:47 Dose: 40 meq Rivaroxaban (Xarelto -) 15 mg PO DAILY@1800 [facility] Last Admin: 03/21/18 18:18 Dose: 15 mg Rosuvastatin Calcium (Crestor -) 10 mg PO HS [facility] Last Admin: 03/21/18 21:28 Dose: 10 mg Tamsulosin HCl (Flomax -) 0.4 mg PO BID@0830,2200 [facility] Last Admin: 03/22/18 09:00 Dose: 0.4 mg Torsemide (Demadex -) 80 mg PO BIDLASIX [facility] Last Admin: 03/22/18 06:32 Dose: 80 mg Zolpidem Tartrate (Ambien -) 5 mg PO HS PRN PRN Reason: INSOMNIA Last Admin: 03/21/18 21:28 Dose: 5 mg - Objective Vital Signs: Vital Signs Temperature 98.2 F 03/22/18 08:00 Pulse Rate 99 H 03/22/18 08:00 Respiratory Rate 16 03/22/18 08:00 Blood Pressure 111/70 03/22/18 08:00 O2 Sat by Pulse Oximetry (%) 94 L 03/21/18 20:51 Constitutional: Yes: No Distress, Calm Cardiovascular: Yes: Regular Rate and Rhythm, S1, S2 Respiratory: Yes: Regular, Other (crackles at both bases) Gastrointestinal: Yes: Normal Bowel Sounds, Soft. No: Tenderness Edema: No Neurological: Yes: Alert, Oriented Labs: CBC, BMP 03/21/18 05:30 03/22/18 05:30 Problem List - Problems (1) Acute systolic CHF (congestive heart failure) Code(s): I50.21 - ACUTE SYSTOLIC (CONGESTIVE) HEART FAILURE (2) Elevated troponin I level Code(s): R74.8 - ABNORMAL LEVELS OF OTHER SERUM ENZYMES (3) Hypotension Code(s): I95.9 - HYPOTENSION, UNSPECIFIED (4) PACO (acute kidney injury) Code(s): N17.9 - ACUTE KIDNEY FAILURE, UNSPECIFIED (5) CRF (chronic renal failure) Code(s): N18.9 - CHRONIC KIDNEY DISEASE, UNSPECIFIED (6) Hypercholesteremia Code(s): E78.00 - PURE HYPERCHOLESTEROLEMIA, UNSPECIFIED (7) Hypertension Code(s): I10 - ESSENTIAL (PRIMARY) HYPERTENSION (8) Pleural effusion Code(s): J90 - PLEURAL EFFUSION, NOT ELSEWHERE CLASSIFIED (9) CAD (coronary artery disease) Code(s): I25.10 - ATHSCL HEART DISEASE OF [place] CORONARY ARTERY W/O ANG PCTRS (10) AICD (automatic cardioverter/defibrillator) present Code(s): Z95.810 - PRESENCE OF AUTOMATIC (IMPLANTABLE) CARDIAC DEFIBRILLATOR (11) PAF (paroxysmal atrial fibrillation) Code(s): I48.0 - PAROXYSMAL ATRIAL FIBRILLATION (12) Urinary retention Code(s): R33.9 - RETENTION OF URINE, UNSPECIFIED (13) Hematuria Code(s): R31.9 - HEMATURIA, UNSPECIFIED (14) Hypokalemia Code(s): E87.6 - HYPOKALEMIA Assessment/Plan Admitted to ICU, now transferred to Telemetry. Serial CE -stable; CE were noticed to be elevated in the settings of PACO and CHF ( probable demand ischemia) ICU/CCM, Cardio, Renal, consults are appreciated Pt was switched to PO diuretic Holt was removed on 03/19/2018; pt is urinating well. Last night urine residual volume over 700 ml; pt is refusing Holt placement. I explained to pt risks associated with large volume urine residual volume; pt is refusing again Holt placement; to f/u with . Home med on hold at admission: Losartan, Spironolactone, Torsemide, Metformin. BGM with Novolog coverage. Pt is tolerating Metoprolol; pt's blood pressure is improved. Pt would benefit of ACEI or ARB; can be restart it as outpatient. K is controlled with K-dur BID PT Pt's case was d/w pt's nurse; to repeat again bladder scan after voiding and call me with report.
--- NOTE | 2018-03-22 14:58 | PN ---
Progress Note (short form) - Note Progress Note: Renal follow up for PACO Pt seen and examined in Tele awake and alert complaints of pain in the bottom of his left foot no sob, cp, abd pain, N/V/D Vital Signs Temperature 97.8 F 03/22/18 14:22 Pulse Rate 95 H 03/22/18 14:22 Respiratory Rate 16 03/22/18 14:22 Blood Pressure 105/53 03/22/18 14:22 O2 Sat by Pulse Oximetry (%) 96 03/22/18 09:00 Intake & Output 03/19/18 03/20/18 03/21/18 03/22/18 23:59 23:59 23:59 23:59 Intake Total 480 760 700 Output Total 3468 711 8331 550 Balance -1070 -140 -300 -550 Weight 80.3 kg 79.124 kg NAD awake and alert RRR, No M/R + rales right lung base soft NT/ND no Le edema CBC, BMP 03/21/18 05:30 03/22/18 05:30 Current Medications Allopurinol (Zyloprim -) 100 mg PO DAILY [facility] Last Admin: 03/22/18 09:54 Dose: 100 mg Cholecalciferol (Vitamin D3 -) 2,000 unit PO DAILY [facility] Last Admin: 03/22/18 09:47 Dose: 2,000 unit Clopidogrel Bisulfate (Plavix -) 75 mg PO DAILY [facility] Last Admin: 03/22/18 09:47 Dose: 75 mg Docusate Sodium (Colace -) 100 mg PO Q12H PRN PRN Reason: CONSTIPATION Escitalopram Oxalate (Lexapro -) 10 mg PO DAILY [facility] Last Admin: 03/22/18 09:47 Dose: 10 mg Finasteride (Proscar -) 5 mg PO DAILY [facility] Last Admin: 03/22/18 09:47 Dose: 5 mg Insulin Aspart (Novolog Vial Sliding Scale -) 1 vial SQ ACHS [facility]; Protocol Last Admin: 03/22/18 12:00 Dose: 6 units Metoprolol Tartrate (Lopressor -) 25 mg PO BID [facility] Last Admin: 03/22/18 09:47 Dose: 25 mg Potassium Chloride (K-Dur -) 40 meq PO BID [facility] Last Admin: 03/22/18 09:47 Dose: 40 meq Prednisone (Deltasone -) 30 mg PO DAILY [facility] Stop: 03/24/18 10:01 Rivaroxaban (Xarelto -) 15 mg PO DAILY@1800 [facility] Last Admin: 03/21/18 18:18 Dose: 15 mg Rosuvastatin Calcium (Crestor -) 10 mg PO HS [facility] Last Admin: 03/21/18 21:28 Dose: 10 mg Tamsulosin HCl (Flomax -) 0.4 mg PO BID@0830,2200 [facility] Last Admin: 03/22/18 09:00 Dose: 0.4 mg Torsemide (Demadex -) 80 mg PO BIDLASIX [facility] Last Admin: 03/22/18 13:38 Dose: 80 mg Zolpidem Tartrate (Ambien -) 5 mg PO HS PRN PRN Reason: INSOMNIA Last Admin: 03/21/18 21:28 Dose: 5 mg 78 year old gentleman with Hx of CHF, Hypertension, HLD, DM who presented with SOB and admitted for CHF exacerbation with PACO. #PACO on ? 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 Timed voiding advised Start trial of prednisone for suspected gout check uric acid levels continue flomaxgwen DO
[2018-03-22] MEDS: predniSONE 10 MG TABLET (UD) PO SCH (16:00)
[2018-03-22] MEDS ORDERED: PT OWN MED DRAWER 7, Y5N ONE (17:11)
[2018-03-22] MEDS: RIVAROXABAN 15 MG TABLET PO SCH (17:20)
[2018-03-22] MEDS: ROSUVASTATIN CA 10 MG TABLET (FP) PO SCH (21:24)
[2018-03-22] MEDS: ZOLPIDEM TARTRATE 5 MG TABLET PO PRN (21:24)
[2018-03-23] MEDS: TORSEMIDE 20 MG TABLET (FP) PO SCH (05:48)
[2018-03-23] MEDS: INSULIN SLIDING SCALE (NOVOLOG) 1 VIAL SQ SCH ×4 (06:27→21:42)
[2018-03-23 06:31] LABS: BASO % 0.3 % (0-2.0); EOS % 0.1 % (0-4.5); HEMATOCRIT 39.4 % (35.4-49); HEMOGLOBIN 12.8 GM/dL (11.7-16.9); MCH 27.6 pg (25.7-33.7); MCHC 32.4 g/dl (32.0-35.9); MEAN CELL VOLUME 85.1 fl (80-96); MEAN PLT VOLUME 7.6 fl (7.5-11.1); MONO % 5.8 % (3.8-10.2); NEUT % 82.8 % (42.8-82.8); PLATELET COUNT 241 K/MM3 (134-434); RBC 4.63 M/mm3 (4.00-5.60); RDW 17.1 % (11.9-15.9); WHITE BLOOD COUNT 8.5 K/mm3 (4.0-10.0)
[2018-03-23 06:53] LABS: ALBUMIN 3.2 g/dl (3.4-5.0); ANION GAP 8 MMOL/L (8-16); BLOOD UREA NITROGEN 67 mg/dL (7-18); CALCIUM 9.2 mg/dL (8.5-10.1); CHLORIDE 97 mmol/L (98-107); CO2 30 mmol/L (21-32); GLUCOSE,RANDOM 181 mg/dL (74-106); MAGNESIUM 2.7 mg/dL (1.8-2.4); POTASSIUM 5.5 mmol/L (3.5-5.1); SODIUM 135 mmol/L (136-145)
[2018-03-23 06:56] LABS: ALK PHOS 57 U/L (45-117); BILIRUBIN,TOTAL 0.7 mg/dL (0.2-1.0); CREATININE 1.9 mg/dL (0.7-1.3); PHOSPHOROUS 3.3 mg/dL (2.5-4.9); SGOT/AST 18 U/L (15-37); SGPT/ALT 12 U/L (12-78); TOT PROT 6.9 g/dl (6.4-8.2)
[2018-03-23] MEDS: TAMSULOSIN HCL 0.4 MG CAP PO SCH ×2 (09:28→21:41)
[2018-03-23] MEDS: METOPROLOL TARTRATE 25 MG TABLET (FP) PO SCH ×2 (09:28→21:41)
[2018-03-23] MEDS: predniSONE 10 MG TABLET (UD) PO SCH (09:28)
[2018-03-23] MEDS: POTASSIUM CHLORIDE TABS 20 MEQ TABLET.ER (FP) PO SCH ×2 (09:29→10:05)
[2018-03-23] MEDS: CHOLECALCIFEROL (VITAMIN D3) 1,000 UNIT TABLET (FP) PO SCH (09:29)
[2018-03-23] MEDS: ESCITALOPRAM OXALATE 10 MG TABLET (FP) PO SCH (09:29)
[2018-03-23] MEDS: FINASTERIDE 5 MG TABLET (FP) PO SCH (09:30)
[2018-03-23] MEDS: CLOPIDOGREL BISULFATE 75 MG TABLET (FP) PO SCH (09:30)
[2018-03-23] MEDS: ALLOPURINOL 100 MG TABLET (FP) PO SCH (09:30)
--- NOTE | 2018-03-23 10:00 | PN ---
Progress Note, Physician Chief Complaint: The patient seen in the bed. Reports feeling better. Maintains fair amounts of urine output- On Torsemide 80 mg BID No chest pains, No shortness of breath. - Current Medication List Current Medications: Active Medications Allopurinol (Zyloprim -) 100 mg PO DAILY [facility] Last Admin: 03/23/18 09:30 Dose: 100 mg Cholecalciferol (Vitamin D3 -) 2,000 unit PO DAILY [facility] Last Admin: 03/23/18 09:29 Dose: 2,000 unit Clopidogrel Bisulfate (Plavix -) 75 mg PO DAILY [facility] Last Admin: 03/23/18 09:30 Dose: 75 mg Docusate Sodium (Colace -) 100 mg PO Q12H PRN PRN Reason: CONSTIPATION Escitalopram Oxalate (Lexapro -) 10 mg PO DAILY [facility] Last Admin: 03/23/18 09:29 Dose: 10 mg Finasteride (Proscar -) 5 mg PO DAILY [facility] Last Admin: 03/23/18 09:30 Dose: 5 mg Insulin Aspart (Novolog Vial Sliding Scale -) 1 vial SQ [facility]; Protocol Last Admin: 03/23/18 06:27 Dose: Not Given Metoprolol Tartrate (Lopressor -) 25 mg PO BID [facility] Last Admin: 03/23/18 09:28 Dose: 25 mg Potassium Chloride (K-Dur -) 40 meq PO BID [facility] Last Admin: 03/23/18 09:29 Dose: 40 meq Prednisone (Deltasone -) 30 mg PO DAILY [facility] Stop: 03/24/18 10:01 Last Admin: 03/23/18 09:28 Dose: 30 mg Rivaroxaban (Xarelto -) 15 mg PO DAILY@1800 [facility] Last Admin: 03/22/18 17:20 Dose: 15 mg Rosuvastatin Calcium (Crestor -) 10 mg PO HS [facility] Last Admin: 03/22/18 21:24 Dose: 10 mg Tamsulosin HCl (Flomax -) 0.4 mg PO BID@0830,2200 [facility] Last Admin: 03/23/18 09:28 Dose: 0.4 mg Torsemide (Demadex -) 80 mg PO BIDLASIX [facility] Last Admin: 03/23/18 05:48 Dose: 80 mg Zolpidem Tartrate (Ambien -) 5 mg PO HS PRN PRN Reason: INSOMNIA Last Admin: 03/22/18 21:24 Dose: 5 mg - Objective Vital Signs: Vital Signs Temperature 98.3 F 03/22/18 20:00 Pulse Rate 84 03/23/18 05:21 Respiratory Rate 16 03/23/18 05:21 Blood Pressure 98/68 03/23/18 05:21 O2 Sat by Pulse Oximetry (%) 96 03/22/18 20:02 Constitutional: Yes: Well Nourished, Calm, Anxious Eyes: Yes: Conjunctiva Clear HENT: Yes: Atraumatic Neck: Yes: Trachea Midline Cardiovascular: Yes: Regular Rate and Rhythm, S1, S2 Respiratory: Yes: CTA Bilaterally, Poor Air Entry. No: Rales, Rhonchi Gastrointestinal: Yes: Normal Bowel Sounds, Other (distended bladdder in the suprapubic area....patient refuses to be catheterized.) Genitourinary: No: CVA Tenderness - Left, CVA Tenderness - Right, Holt Present , Hematuria Musculoskeletal: No: Back Pain Edema: No Labs: CBC, BMP 03/23/18 05:30 03/23/18 05:30 Problem List - Problems (1) AICD (automatic cardioverter/defibrillator) present Code(s): Z95.810 - PRESENCE OF AUTOMATIC (IMPLANTABLE) CARDIAC DEFIBRILLATOR (2) PACO (acute kidney injury) Code(s): N17.9 - ACUTE KIDNEY FAILURE, UNSPECIFIED (3) Acute systolic CHF (congestive heart failure) Code(s): I50.21 - ACUTE SYSTOLIC (CONGESTIVE) HEART FAILURE (4) CHF (congestive heart failure) Code(s): I50.9 - HEART FAILURE, UNSPECIFIED Qualifiers: Heart failure type: unspecified Heart failure chronicity: acute on chronic Qualified Code(s): I50.9 - Heart failure, unspecified (5) PAF (paroxysmal atrial fibrillation) Code(s): I48.0 - PAROXYSMAL ATRIAL FIBRILLATION (6) Urinary retention Code(s): R33.9 - RETENTION OF URINE, UNSPECIFIED (7) Diabetes mellitus Code(s): E11.9 - TYPE 2 DIABETES MELLITUS WITHOUT COMPLICATIONS Assessment/Plan 78 year old gentleman with Hx of CHF, Hypertension, HLD, DM who presented with SOB and admitted for CHF exacerbation with PACO. 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 Refuses to take Holt catheter. Serum creatinine trending up. #CHF Exacerbation...Resolved #BPH with retention...For procedure next week. #Renal Cysts Tendency for Hyperkalemia Suggest: Reduce the dose of Torsemide. Continue the Flomax and Proscar. D/C KCl supplements. ( K high) For procedure. Will monitor the renal functions with you. Martha Heredia MD
--- NOTE | 2018-03-23 11:53 | PN ---
Progress Note, Physician History of Present Illness: Feeling improved Breathing much improved from admission No chest pain or palpitations - Current Medication List Current Medications: Active Medications Allopurinol (Zyloprim -) 100 mg PO DAILY [facility] Last Admin: 03/23/18 09:30 Dose: 100 mg Cholecalciferol (Vitamin D3 -) 2,000 unit PO DAILY [facility] Last Admin: 03/23/18 09:29 Dose: 2,000 unit Clopidogrel Bisulfate (Plavix -) 75 mg PO DAILY [facility] Last Admin: 03/23/18 09:30 Dose: 75 mg Docusate Sodium (Colace -) 100 mg PO Q12H PRN PRN Reason: CONSTIPATION Escitalopram Oxalate (Lexapro -) 10 mg PO DAILY [facility] Last Admin: 03/23/18 09:29 Dose: 10 mg Finasteride (Proscar -) 5 mg PO DAILY [facility] Last Admin: 03/23/18 09:30 Dose: 5 mg Insulin Aspart (Novolog Vial Sliding Scale -) [address] [facility]; Protocol Last Admin: 03/23/18 06:27 Dose: Not Given Metoprolol Tartrate (Lopressor -) 25 mg PO BID [facility] Last Admin: 03/23/18 09:28 Dose: 25 mg Prednisone (Deltasone -) 30 mg PO DAILY [facility] Stop: 03/24/18 10:01 Last Admin: 03/23/18 09:28 Dose: 30 mg Rivaroxaban (Xarelto -) 15 mg PO DAILY@1800 [facility] Last Admin: 03/22/18 17:20 Dose: 15 mg Rosuvastatin Calcium (Crestor -) 10 mg PO HS [facility] Last Admin: 03/22/18 21:24 Dose: 10 mg Tamsulosin HCl (Flomax -) 0.4 mg PO BID@0830,2200 [facility] Last Admin: 03/23/18 09:28 Dose: 0.4 mg Torsemide (Demadex -) 80 mg PO DAILY [facility] Zolpidem Tartrate (Ambien -) 5 mg PO HS PRN PRN Reason: INSOMNIA Last Admin: 03/22/18 21:24 Dose: 5 mg - Objective Vital Signs: Vital Signs Temperature 98 F 03/23/18 10:00 Pulse Rate 101 H 03/23/18 10:00 Respiratory Rate 18 03/23/18 10:00 Blood Pressure 91/61 03/23/18 10:00 O2 Sat by Pulse Oximetry (%) 97 03/23/18 09:00 Constitutional: Yes: No Distress, Calm Eyes: Yes: WNL HENT: Yes: WNL Neck: Yes: WNL Cardiovascular: Yes: WNL, Regular Rate and Rhythm Respiratory: Yes: CTA Bilaterally Gastrointestinal: Yes: WNL Musculoskeletal: Yes: WNL Extremities: Yes: WNL Edema: No Labs: CBC, BMP 03/23/18 05:30 03/23/18 05:30 Assessment/Plan cute on chronic systolic HF s/p ICD - admitting symptoms concerning for CHF exacerbation, BNP 8000 - at home was on torsemide 80 mg BID - continue bb as tolerated, hold losartan and spironolactone in setting of PACO - continues to diurese, BUN/Cr stable, was diuresed with lasix 80 mg IV BID - transitioned to torsemide 80 mg BID, able to urinate without curtis - has been walking without dyspnea - medication for HF limited due to low BP, had been on spironolactone and losartan at home however has been hypotensive here on diuretics and low dose metoprolol (was on 100 mg BID at home, later decreased to 50 mg BID and now on 25 mg BID) - continue torsemide 80 mg BID, metoprolol 25 mg BID - k repletion -03/23: Stable, continue torsemide 80 mg BID, metoprolol 25 mg BID CAD s/p LM stent 04/2017 - cont statin, plavix, metoprolol pos troponin -borderline trop elevation with flat trend and nl ck, not c/w acs afib - restarted on metoprolol 25 mg BID with improved rates, up titrate as tolerated however has had low BP - cont xarelto PACO - may be cardiorenal, obstructive - improving with diuresis, curtis placement - renal ultrasound, no obstruction - Cr 1.4 in clinic 12/2017, up slightly today (1.9 from 1.7) will continue to monitor - appreciate nephrology, urology recs HTN - low BP as above HLD - cont statin DM - manage per primary
--- NOTE | 2018-03-23 12:49 | PN ---
Progress Note, Physician History of Present Illness: Pt is breathing is improved Pt w/o CP, palpitations, abd pain, N, V. - Current Medication List Current Medications: Active Medications Allopurinol (Zyloprim -) 100 mg PO DAILY [facility] Last Admin: 03/23/18 09:30 Dose: 100 mg Cholecalciferol (Vitamin D3 -) 2,000 unit PO DAILY [facility] Last Admin: 03/23/18 09:29 Dose: 2,000 unit Clopidogrel Bisulfate (Plavix -) 75 mg PO DAILY [facility] Last Admin: 03/23/18 09:30 Dose: 75 mg Docusate Sodium (Colace -) 100 mg PO Q12H PRN PRN Reason: CONSTIPATION Escitalopram Oxalate (Lexapro -) 10 mg PO DAILY [facility] Last Admin: 03/23/18 09:29 Dose: 10 mg Finasteride (Proscar -) 5 mg PO DAILY [facility] Last Admin: 03/23/18 09:30 Dose: 5 mg Insulin Aspart (Novolog Vial Sliding Scale -) 1 vial SQ ACHS [facility]; Protocol Last Admin: 03/23/18 11:52 Dose: 6 units Metoprolol Tartrate (Lopressor -) 25 mg PO BID [facility] Last Admin: 03/23/18 09:28 Dose: 25 mg Prednisone (Deltasone -) 30 mg PO DAILY [facility] Stop: 03/24/18 10:01 Last Admin: 03/23/18 09:28 Dose: 30 mg Rivaroxaban (Xarelto -) 15 mg PO DAILY@1800 [facility] Last Admin: 03/22/18 17:20 Dose: 15 mg Rosuvastatin Calcium (Crestor -) 10 mg PO HS [facility] Last Admin: 03/22/18 21:24 Dose: 10 mg Tamsulosin HCl (Flomax -) 0.4 mg PO BID@0830,2200 [facility] Last Admin: 03/23/18 09:28 Dose: 0.4 mg Torsemide (Demadex -) 80 mg PO DAILY [facility] Zolpidem Tartrate (Ambien -) 5 mg PO HS PRN PRN Reason: INSOMNIA Last Admin: 03/22/18 21:24 Dose: 5 mg - Objective Vital Signs: Vital Signs Temperature 98 F 03/23/18 10:00 Pulse Rate 101 H 03/23/18 10:00 Respiratory Rate 18 03/23/18 10:00 Blood Pressure 91/61 03/23/18 10:00 O2 Sat by Pulse Oximetry (%) 97 03/23/18 09:00 Constitutional: Yes: No Distress, Calm Cardiovascular: Yes: Regular Rate and Rhythm, S1, S2 Respiratory: Yes: Regular, Other (coarse BS Crackles at bases) Gastrointestinal: Yes: Normal Bowel Sounds, Soft, Tenderness Edema: No Neurological: Yes: Alert, Oriented Labs: CBC, BMP 03/23/18 05:30 03/23/18 05:30 Problem List - Problems (1) Acute systolic CHF (congestive heart failure) Code(s): I50.21 - ACUTE SYSTOLIC (CONGESTIVE) HEART FAILURE (2) Elevated troponin I level Code(s): R74.8 - ABNORMAL LEVELS OF OTHER SERUM ENZYMES (3) Hypotension Code(s): I95.9 - HYPOTENSION, UNSPECIFIED (4) PACO (acute kidney injury) Code(s): N17.9 - ACUTE KIDNEY FAILURE, UNSPECIFIED (5) CRF (chronic renal failure) Code(s): N18.9 - CHRONIC KIDNEY DISEASE, UNSPECIFIED (6) Hypercholesteremia Code(s): E78.00 - PURE HYPERCHOLESTEROLEMIA, UNSPECIFIED (7) Hypertension Code(s): I10 - ESSENTIAL (PRIMARY) HYPERTENSION (8) Pleural effusion Code(s): J90 - PLEURAL EFFUSION, NOT ELSEWHERE CLASSIFIED (9) CAD (coronary artery disease) Code(s): I25.10 - ATHSCL HEART DISEASE OF [place] CORONARY ARTERY W/O ANG PCTRS (10) AICD (automatic cardioverter/defibrillator) present Code(s): Z95.810 - PRESENCE OF AUTOMATIC (IMPLANTABLE) CARDIAC DEFIBRILLATOR (11) PAF (paroxysmal atrial fibrillation) Code(s): I48.0 - PAROXYSMAL ATRIAL FIBRILLATION (12) Urinary retention Code(s): R33.9 - RETENTION OF URINE, UNSPECIFIED (13) Hematuria Code(s): R31.9 - HEMATURIA, UNSPECIFIED Assessment/Plan Admitted to ICU, transferred to Telemetry. Serial CE -stable; CE were found to be elevated in the settings of PACO and CHF ( probable demand ischemia) ICU/CCM, Cardio, Renal, consults are appreciated. Home med on hold at admission: Losartan, Spironolactone, Torsemide, Metformin. BGM with Novolog coverage. Pt was switched to PO diuretic. Pt is tolerating Metoprolol; pt's blood presure is improved. Pt would benefit of ACEI or ARB; can be restarted as tolerated PT with UR, had Holt placed, removed for TOV, Pt is passiving urine but has large residual volume and he is refusing Holt replacement; per pt he would go for prostate Sx on Sunday; to f/u Cardio if he is cleared for it. AM labs. PT Pt's case was d/w pt's nurse.
[2018-03-23] MEDS: RIVAROXABAN 15 MG TABLET PO SCH (17:25)
[2018-03-23] MEDS ORDERED: PT OWN MED DRAWER 7, Y5N ONE (17:25)
[2018-03-23] MEDS: ZOLPIDEM TARTRATE 5 MG TABLET PO PRN (21:41)
[2018-03-23] MEDS: ROSUVASTATIN CA 10 MG TABLET (FP) PO SCH (21:48)
[2018-03-24] MEDS: INSULIN SLIDING SCALE (NOVOLOG) 1 VIAL SQ SCH ×4 (06:38→23:04)
[2018-03-24] MEDS: TAMSULOSIN HCL 0.4 MG CAP PO SCH ×2 (08:47→22:41)
--- NOTE | 2018-03-24 09:33 | PN ---
Progress Note, Physician History of Present Illness: No complaints overnight No chest pain or dyspnea - Current Medication List Current Medications: Active Medications Allopurinol (Zyloprim -) 100 mg PO DAILY [facility] Last Admin: 03/23/18 09:30 Dose: 100 mg Cholecalciferol (Vitamin D3 -) 2,000 unit PO DAILY [facility] Last Admin: 03/23/18 09:29 Dose: 2,000 unit Clopidogrel Bisulfate (Plavix -) 75 mg PO DAILY [facility] Last Admin: 03/23/18 09:30 Dose: 75 mg Docusate Sodium (Colace -) 100 mg PO Q12H PRN PRN Reason: CONSTIPATION Escitalopram Oxalate (Lexapro -) 10 mg PO DAILY [facility] Last Admin: 03/23/18 09:29 Dose: 10 mg Finasteride (Proscar -) 5 mg PO DAILY [facility] Last Admin: 03/23/18 09:30 Dose: 5 mg Insulin Aspart (Novolog Vial Sliding Scale -) 1 vial SQ [facility]; Protocol Last Admin: 03/24/18 06:38 Dose: Not Given Metoprolol Tartrate (Lopressor -) 25 mg PO BID [facility] Last Admin: 03/23/18 21:41 Dose: 25 mg Prednisone (Deltasone -) 30 mg PO DAILY [facility] Stop: 03/24/18 10:01 Last Admin: 03/23/18 09:28 Dose: 30 mg Rivaroxaban (Xarelto -) 15 mg PO DAILY@1800 [facility] Last Admin: 03/23/18 17:25 Dose: 15 mg Rosuvastatin Calcium (Crestor -) 10 mg PO HS [facility] Last Admin: 03/23/18 21:48 Dose: 10 mg Tamsulosin HCl (Flomax -) 0.4 mg PO BID@0830,2200 [facility] Last Admin: 03/24/18 08:47 Dose: 0.4 mg Torsemide (Demadex -) 80 mg PO DAILY [facility] Zolpidem Tartrate (Ambien -) 5 mg PO HS PRN PRN Reason: INSOMNIA Last Admin: 03/23/18 21:41 Dose: 5 mg - Objective Vital Signs: Vital Signs Temperature 97.8 F 03/24/18 08:45 Pulse Rate 92 H 03/24/18 08:45 Respiratory Rate 15 03/24/18 08:45 Blood Pressure 86/54 03/24/18 08:45 O2 Sat by Pulse Oximetry (%) 97 09/08/18 20:32 Constitutional: Yes: Well Nourished, No Distress Eyes: Yes: WNL HENT: Yes: WNL Neck: Yes: WNL Cardiovascular: Yes: Regular Rate and Rhythm Respiratory: Yes: CTA Bilaterally Gastrointestinal: Yes: Normal Bowel Sounds Extremities: Yes: WNL Edema: No Labs: CBC, BMP 03/23/18 05:30 03/23/18 05:30 Assessment/Plan Acute on chronic systolic HF s/p ICD - admitting symptoms concerning for CHF exacerbation, BNP 8000 - at home was on torsemide 80 mg BID - medication for HF limited due to low BP, had been on spironolactone and losartan at home however has been hypotensive here on diuretics and low dose metoprolol (was on 100 mg BID at home, later decreased to 50 mg BID and now on 25 mg BID) - continue torsemide 80 mg BID, metoprolol 25 mg BID - k repletion -03/23: Stable, continue torsemide 80 mg BID, metoprolol 25 mg BID -03/24: Stable. appears euvolemic. Continue Torsemide and Metoprolol at curernt dose -Informed this AM by patient that he is scheduled to have a TURP tomorrow (?). While he is stable from a cardiovascular perspective and euvolemic for this procedure, he will need to stop Xarelto for 3 doses and plavix for 5 days (>6m from PCI) prior to minimize bleeding risk. -Mr Franklin has a history of 3v CAD for which I performed an Impella assisted PCI to left main in 04/2017 (Xience 3.5 x 18mm). At that time he had an LV function of 29% underwent ICD placement for primary prevention. No echo done at [facility] for follow up echo but I am sure Dr. Alas performed an echo post PCI for reasessment of LV fx. CAD s/p LM stent 04/2017 - cont statin, plavix, metoprolol pos troponin -borderline trop elevation with flat trend and nl ck, not c/w acs afib - restarted on metoprolol 25 mg BID with improved rates, up titrate as tolerated however has had low BP - cont xarelto PACO - may be cardiorenal, obstructive - improving with diuresis, curtis placement - renal ultrasound, no obstruction - Cr 1.4 in clinic 12/2017, up slightly today (1.9 from 1.7) will continue to monitor - appreciate nephrology, urology recs HTN - low BP as above HLD - cont statin DM - manage per primary
[2018-03-24] MEDS: TORSEMIDE 20 MG TABLET (FP) PO SCH (10:07)
[2018-03-24] MEDS: FINASTERIDE 5 MG TABLET (FP) PO SCH (10:07)
[2018-03-24] MEDS: METOPROLOL TARTRATE 25 MG TABLET (FP) PO SCH ×2 (10:07→22:41)
[2018-03-24] MEDS: predniSONE 10 MG TABLET (UD) PO SCH (10:07)
[2018-03-24] MEDS: CHOLECALCIFEROL (VITAMIN D3) 1,000 UNIT TABLET (FP) PO SCH (10:07)
[2018-03-24] MEDS: ESCITALOPRAM OXALATE 10 MG TABLET (FP) PO SCH (10:07)
[2018-03-24] MEDS: ALLOPURINOL 100 MG TABLET (FP) PO SCH (10:08)
--- NOTE | 2018-03-24 10:35 | PN ---
Progress Note (short form) - Note Progress Note: Seen and examined in Tele unit Awake, alert w/o co SOB Net negative w/ diureis Active Medications Allopurinol (Zyloprim -) 100 mg PO DAILY [facility] Last Admin: 03/24/18 10:08 Dose: 100 mg Cholecalciferol (Vitamin D3 -) 2,000 unit PO DAILY [facility] Last Admin: 03/24/18 10:07 Dose: 2,000 unit Clopidogrel Bisulfate (Plavix -) 75 mg PO DAILY [facility] Last Admin: 03/23/18 09:30 Dose: 75 mg Docusate Sodium (Colace -) 100 mg PO Q12H PRN PRN Reason: CONSTIPATION Escitalopram Oxalate (Lexapro -) 10 mg PO DAILY [facility] Last Admin: 03/24/18 10:07 Dose: 10 mg Finasteride (Proscar -) 5 mg PO DAILY [facility] Last Admin: 03/24/18 10:07 Dose: 5 mg Insulin Aspart (Novolog Vial Sliding Scale -) 1 vial SQ ACHS [facility]; Protocol Last Admin: 03/24/18 06:38 Dose: Not Given Metoprolol Tartrate (Lopressor -) 25 mg PO BID [facility] Last Admin: 03/24/18 10:07 Dose: 25 mg Rivaroxaban (Xarelto -) 15 mg PO DAILY@1800 [facility] Last Admin: 03/23/18 17:25 Dose: 15 mg Rosuvastatin Calcium (Crestor -) 10 mg PO HS [facility] Last Admin: 03/23/18 21:48 Dose: 10 mg Tamsulosin HCl (Flomax -) 0.4 mg PO BID@0830,2200 [facility] Last Admin: 03/24/18 08:47 Dose: 0.4 mg Torsemide (Demadex -) 80 mg PO DAILY [facility] Last Admin: 03/24/18 10:07 Dose: 80 mg Zolpidem Tartrate (Ambien -) 5 mg PO HS PRN PRN Reason: INSOMNIA Last Admin: 03/23/18 21:41 Dose: 5 mg Vital Signs Period Temp Pulse Resp BP Sys/Eisenberg Pulse Ox Last 24 Hr 97.8 F-98.8 F 88-97 15-18 86-102/48-78 97-99 Intake & Output 03/21/18 03/22/18 03/23/18 03/24/18 23:59 23:59 23:59 23:59 Intake Total 700 640 800 50 Output Total 1000 1400 1300 Balance -300 -760 -500 50 General: awake, alert and coopeative. denies SOB/WOB HEENT: PERRL CV: RRR Pulm: faint insp crackles Abd: SNTND Ext: WWP, no edema Neuro: grossly intact CBC, BMP 03/24/18 10:50 03/24/18 10:50 A/P Acute on Chronic Systolic Heart Failure Atrial Fibrillation CAD +Troponins likely Demand Ischemia Acute on Chronic Renal Failure HTN DM Hyperlipidemia Hematuria - continue torsemide at home dose for goal net out - monitor urine output, creatinine - daily weights - replete lytes - incentive dipak - rate controlled with BB - continue anticoagulation - O2 to keep SpO2 >90% Boerem ACNP Pulm/CCM CCT: 35m
[2018-03-24 11:07] LABS: HEMATOCRIT 40.1 % (35.4-49); MCH 27.7 pg (25.7-33.7); MCHC 32.4 g/dl (32.0-35.9); MEAN CELL VOLUME 85.5 fl (80-96); MEAN PLT VOLUME 7.5 fl (7.5-11.1); PLATELET COUNT 254 K/MM3 (134-434); RBC 4.69 M/mm3 (4.00-5.60); RDW 17.4 % (11.9-15.9); WHITE BLOOD COUNT 10.4 K/mm3 (4.0-10.0)
[2018-03-24 11:32] LABS: ANION GAP 11 MMOL/L (8-16); BLOOD UREA NITROGEN 64 mg/dL (7-18); CALCIUM 9.5 mg/dL (8.5-10.1); CHLORIDE 96 mmol/L (98-107); CO2 28 mmol/L (21-32); CREATININE 1.8 mg/dL (0.7-1.3); GLUCOSE,RANDOM 248 mg/dL (74-106); MAGNESIUM 2.6 mg/dL (1.8-2.4); PHOSPHOROUS 3.3 mg/dL (2.5-4.9); POTASSIUM 4.5 mmol/L (3.5-5.1); SODIUM 135 mmol/L (136-145)
--- NOTE | 2018-03-24 12:55 | PN ---
Progress Note, Physician Chief Complaint: The patient seen in the bed. Reports feeling better. Maintains fair amounts of urine output- On Torsemide 80 mg BID No chest pains, No shortness of breath. Says that he is scheduled for procedure tomorrow. But I do not see any documentation from the surgeon about that. - Current Medication List Current Medications: Active Medications Allopurinol (Zyloprim -) 100 mg PO DAILY [facility] Last Admin: 03/24/18 10:08 Dose: 100 mg Cholecalciferol (Vitamin D3 -) 2,000 unit PO DAILY [facility] Last Admin: 03/24/18 10:07 Dose: 2,000 unit Clopidogrel Bisulfate (Plavix -) 75 mg PO DAILY [facility] Last Admin: 03/23/18 09:30 Dose: 75 mg Docusate Sodium (Colace -) 100 mg PO Q12H PRN PRN Reason: CONSTIPATION Escitalopram Oxalate (Lexapro -) 10 mg PO DAILY [facility] Last Admin: 03/24/18 10:07 Dose: 10 mg Finasteride (Proscar -) 5 mg PO DAILY [facility] Last Admin: 03/24/18 10:07 Dose: 5 mg Insulin Aspart (Novolog Vial Sliding Scale -) 1 vial SQ [facility]; Protocol Last Admin: 03/24/18 11:17 Dose: 2 units Metoprolol Tartrate (Lopressor -) 25 mg PO BID [facility] Last Admin: 03/24/18 10:07 Dose: 25 mg Rivaroxaban (Xarelto -) 15 mg PO DAILY@1800 [facility] Last Admin: 03/23/18 17:25 Dose: 15 mg Rosuvastatin Calcium (Crestor -) 10 mg PO HS [facility] Last Admin: 03/23/18 21:48 Dose: 10 mg Tamsulosin HCl (Flomax -) 0.4 mg PO BID@0830,2200 [facility] Last Admin: 03/24/18 08:47 Dose: 0.4 mg Torsemide (Demadex -) 80 mg PO DAILY [facility] Last Admin: 03/24/18 10:07 Dose: 80 mg - Objective Vital Signs: Vital Signs Temperature 97.3 F L 03/24/18 12:00 Pulse Rate 99 H 03/24/18 12:00 Respiratory Rate 19 03/24/18 12:00 Blood Pressure 92/75 03/24/18 12:00 O2 Sat by Pulse Oximetry (%) 99 03/24/18 08:00 Constitutional: Yes: Well Nourished, No Distress HENT: Yes: Normocephalic Cardiovascular: Yes: Tachycardia, Pulse Irregular, S1, S2 Respiratory: Yes: CTA Bilaterally Gastrointestinal: Yes: Normal Bowel Sounds, Soft Genitourinary: No: Bladder Distention, CVA Tenderness - Left, CVA Tenderness - Right Musculoskeletal: Yes: Back Pain Neurological: Yes: Alert, Oriented Labs: CBC, BMP 03/24/18 10:50 03/24/18 10:50 Problem List - Problems (1) AICD (automatic cardioverter/defibrillator) present Code(s): Z95.810 - PRESENCE OF AUTOMATIC (IMPLANTABLE) CARDIAC DEFIBRILLATOR (2) PACO (acute kidney injury) Code(s): N17.9 - ACUTE KIDNEY FAILURE, UNSPECIFIED (3) Acute systolic CHF (congestive heart failure) Code(s): I50.21 - ACUTE SYSTOLIC (CONGESTIVE) HEART FAILURE (4) CHF (congestive heart failure) Code(s): I50.9 - HEART FAILURE, UNSPECIFIED Qualifiers: Heart failure type: unspecified Heart failure chronicity: acute on chronic Qualified Code(s): I50.9 - Heart failure, unspecified (5) PAF (paroxysmal atrial fibrillation) Code(s): I48.0 - PAROXYSMAL ATRIAL FIBRILLATION (6) Urinary retention Code(s): R33.9 - RETENTION OF URINE, UNSPECIFIED (7) Diabetes mellitus Code(s): E11.9 - TYPE 2 DIABETES MELLITUS WITHOUT COMPLICATIONS Assessment/Plan 78 year old gentleman with Hx of CHF, Hypertension, HLD, DM who presented with SOB and admitted for CHF exacerbation with PACO. 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 Refuses to take Holt catheter. Serum creatinine stable. #CHF Exacerbation...Resolved #BPH with retention...For procedure ? when? #Renal Cysts Tendency for Hyperkalemia Suggest: Reduce the dose of Torsemide. Continue the Flomax and Proscar. D/C KCl supplements. ( K high) For procedure. ? Stop anticoagulants prior to surgery. Will monitor the renal functions with you. Martha Heredia MD
[2018-03-24] MEDS: CLOPIDOGREL BISULFATE 75 MG TABLET (FP) PO SCH (13:00)
--- NOTE | 2018-03-24 13:03 | PN ---
Progress Note, Physician History of Present Illness: Pt is breathing is improved Pt w/o CP, palpitations, abd pain, N, V. Pt states that would go for prostate Sx tomorrow. - Current Medication List Current Medications: Active Medications Allopurinol (Zyloprim -) 100 mg PO DAILY [facility] Last Admin: 03/24/18 10:08 Dose: 100 mg Cholecalciferol (Vitamin D3 -) 2,000 unit PO DAILY [facility] Last Admin: 03/24/18 10:07 Dose: 2,000 unit Clopidogrel Bisulfate (Plavix -) 75 mg PO DAILY [facility] Last Admin: 03/23/18 09:30 Dose: 75 mg Docusate Sodium (Colace -) 100 mg PO Q12H PRN PRN Reason: CONSTIPATION Escitalopram Oxalate (Lexapro -) 10 mg PO DAILY [facility] Last Admin: 03/24/18 10:07 Dose: 10 mg Finasteride (Proscar -) 5 mg PO DAILY [facility] Last Admin: 03/24/18 10:07 Dose: 5 mg Insulin Aspart (Novolog Vial Sliding Scale -) 1 vial SQ [facility]; Protocol Last Admin: 03/24/18 11:17 Dose: 2 units Metoprolol Tartrate (Lopressor -) 25 mg PO BID [facility] Last Admin: 03/24/18 10:07 Dose: 25 mg Rivaroxaban (Xarelto -) 15 mg PO DAILY@1800 [facility] Last Admin: 03/23/18 17:25 Dose: 15 mg Rosuvastatin Calcium (Crestor -) 10 mg PO HS [facility] Last Admin: 03/23/18 21:48 Dose: 10 mg Tamsulosin HCl (Flomax -) 0.4 mg PO BID@0830,2200 [facility] Last Admin: 03/24/18 08:47 Dose: 0.4 mg Torsemide (Demadex -) 80 mg PO DAILY [facility] Last Admin: 03/24/18 10:07 Dose: 80 mg - Objective Vital Signs: Vital Signs Temperature 97.3 F L 03/24/18 12:00 Pulse Rate 99 H 03/24/18 12:00 Respiratory Rate 19 03/24/18 12:00 Blood Pressure 92/75 03/24/18 12:00 O2 Sat by Pulse Oximetry (%) 99 03/24/18 08:00 Constitutional: Yes: No Distress, Calm Cardiovascular: Yes: Regular Rate and Rhythm, S1, S2 Respiratory: Yes: Regular, Other (coarse BS bilat; crackles at bases) Gastrointestinal: Yes: Normal Bowel Sounds, Soft. No: Tenderness Edema: No Neurological: Yes: Alert, Oriented Labs: CBC, BMP 03/24/18 10:50 03/24/18 10:50 Problem List - Problems (1) Acute systolic CHF (congestive heart failure) Code(s): I50.21 - ACUTE SYSTOLIC (CONGESTIVE) HEART FAILURE (2) Elevated troponin I level Code(s): R74.8 - ABNORMAL LEVELS OF OTHER SERUM ENZYMES (3) Hypotension Code(s): I95.9 - HYPOTENSION, UNSPECIFIED (4) PACO (acute kidney injury) Code(s): N17.9 - ACUTE KIDNEY FAILURE, UNSPECIFIED (5) CRF (chronic renal failure) Code(s): N18.9 - CHRONIC KIDNEY DISEASE, UNSPECIFIED (6) Hypercholesteremia Code(s): E78.00 - PURE HYPERCHOLESTEROLEMIA, UNSPECIFIED (7) Hypertension Code(s): I10 - ESSENTIAL (PRIMARY) HYPERTENSION (8) Pleural effusion Code(s): J90 - PLEURAL EFFUSION, NOT ELSEWHERE CLASSIFIED (9) CAD (coronary artery disease) Code(s): I25.10 - ATHSCL HEART DISEASE OF [place] CORONARY ARTERY W/O ANG PCTRS (10) AICD (automatic cardioverter/defibrillator) present Code(s): Z95.810 - PRESENCE OF AUTOMATIC (IMPLANTABLE) CARDIAC DEFIBRILLATOR (11) PAF (paroxysmal atrial fibrillation) Code(s): I48.0 - PAROXYSMAL ATRIAL FIBRILLATION (12) Urinary retention Code(s): R33.9 - RETENTION OF URINE, UNSPECIFIED (13) Hematuria Code(s): R31.9 - HEMATURIA, UNSPECIFIED Assessment/Plan Admitted to ICU, transferred to Telemetry. Serial CE -stable; CE were found to be elevated in the settings of PACO and CHF ( probable demand ischemia) ICU/CCM, Cardio, Renal, consults are appreciated. Home med on hold at admission: Losartan, Spironolactone, Torsemide, Metformin. BGM with Novolog coverage. Pt was switched to PO diuretic. Pt is tolerating Metoprolol; pt's blood presure is improved. Pt would benefit of ACEI or ARB; can be restarted as tolerated Pt with UR, had Holt placed, removed for TOV; pt is passing urine but has large residual volume and he is refusing Holt replacement; per pt he would go for prostate Sx on Sunday; today Cardio note was reviewed with pt, including recommendation for stopping Xarelto and Plavix; all questions were answered; to talk with (Dr Boston was paged) about [employer] recommendations and scheduling for prostate Sx. Dr. Dial (, covering Dr. Boston) called back, [employer] recommendations were reviewed; he agrees that surgery will be postponed for few days to minimize bleeding risks; he is aware that pt didn't receive Plavix this AM and Xarelto would be held starting this evening. I made pt aware of my discussion eith Dr. Dial, all questions were answered. AM labs. PT Pt's case was d/w pt's nurse. Time spent for managing pt's treatment : over 40 minutes.
[2018-03-24] MEDS ORDERED: PT OWN MED DRAWER 7, Y5N ONE ×2 (21:24→22:54)
[2018-03-24] MEDS: ROSUVASTATIN CA 10 MG TABLET (FP) PO SCH (22:41)
[2018-03-24] MEDS ORDERED: ZOLPIDEM TARTRATE 5 MG TABLET PO ONE (22:46)
[2018-03-25 06:54] LABS: HEMATOCRIT 36.6 % (35.4-49); HEMOGLOBIN 11.9 GM/dL (11.7-16.9); MCH 27.8 pg (25.7-33.7); MCHC 32.5 g/dl (32.0-35.9); MEAN CELL VOLUME 85.3 fl (80-96); PLATELET COUNT 230 K/MM3 (134-434); RBC 4.29 M/mm3 (4.00-5.60); RDW 17.2 % (11.9-15.9); WHITE BLOOD COUNT 8.9 K/mm3 (4.0-10.0)
[2018-03-25] MEDS: INSULIN SLIDING SCALE (NOVOLOG) 1 VIAL SQ SCH ×4 (06:54→22:29)
[2018-03-25 07:15] LABS: ANION GAP 9 MMOL/L (8-16); BLOOD UREA NITROGEN 71 mg/dL (7-18); CHLORIDE 97 mmol/L (98-107); CO2 30 mmol/L (21-32); GLUCOSE,RANDOM 127 mg/dL (74-106); MAGNESIUM 2.6 mg/dL (1.8-2.4); POTASSIUM 4.1 mmol/L (3.5-5.1); SODIUM 136 mmol/L (136-145)
[2018-03-25 07:16] LABS: CREATININE 1.7 mg/dL (0.7-1.3); PHOSPHOROUS 3.8 mg/dL (2.5-4.9)
[2018-03-25] MEDS: TAMSULOSIN HCL 0.4 MG CAP PO SCH ×2 (08:58→22:29)
[2018-03-25] MEDS ORDERED: PT OWN MED DRAWER 7, Y5N ONE ×2 (09:42→21:14)
[2018-03-25] MEDS: glipiZIDE 5 MG TABLET (FP) PO SCH (09:57)
[2018-03-25] MEDS: ALLOPURINOL 100 MG TABLET (FP) PO SCH (09:57)
[2018-03-25] MEDS: CHOLECALCIFEROL (VITAMIN D3) 1,000 UNIT TABLET (FP) PO SCH (09:57)
[2018-03-25] MEDS: FINASTERIDE 5 MG TABLET (FP) PO SCH (09:58)
[2018-03-25] MEDS: ESCITALOPRAM OXALATE 10 MG TABLET (FP) PO SCH (09:58)
[2018-03-25] MEDS: TORSEMIDE 20 MG TABLET (FP) PO SCH (09:58)
[2018-03-25] MEDS: METOPROLOL TARTRATE 25 MG TABLET (FP) PO SCH ×2 (11:06→22:30)
--- NOTE | 2018-03-25 11:47 | PN ---
Progress Note (short form) - Note Progress Note: s: no complaints. no cp, palps, dyspnea, dizziness Tele: Current Medications Allopurinol (Zyloprim -) 100 mg PO DAILY [facility] Last Admin: 03/25/18 09:57 Dose: 100 mg Cholecalciferol (Vitamin D3 -) 2,000 unit PO DAILY [facility] Last Admin: 03/25/18 09:57 Dose: 2,000 unit Docusate Sodium (Colace -) 100 mg PO Q12H PRN PRN Reason: CONSTIPATION Last Admin: 03/24/18 22:47 Dose: 100 mg Escitalopram Oxalate (Lexapro -) 10 mg PO DAILY [facility] Last Admin: 03/25/18 09:58 Dose: 10 mg Finasteride (Proscar -) 5 mg PO DAILY [facility] Last Admin: 03/25/18 09:58 Dose: 5 mg Glipizide (Glucotrol -) 2.5 mg PO DAILY@0700 [facility] Last Admin: 03/25/18 09:57 Dose: 2.5 mg Insulin Aspart (Novolog Vial Sliding Scale -) 1 vial SQ ACHS [facility]; Protocol Last Admin: 03/25/18 06:54 Dose: Not Given Metoprolol Tartrate (Lopressor -) 25 mg PO BID [facility] Last Admin: 03/25/18 11:06 Dose: 25 mg Rosuvastatin Calcium (Crestor -) 10 mg PO HS [facility] Last Admin: 03/24/18 22:41 Dose: 10 mg Tamsulosin HCl (Flomax -) 0.4 mg PO BID@0830,2200 [facility] Last Admin: 03/25/18 08:58 Dose: 0.4 mg Torsemide (Demadex -) 80 mg PO DAILY [facility] Last Admin: 03/25/18 09:58 Dose: 80 mg - Objective Vital Signs Period Temp Pulse Resp BP Sys/Eisenberg Pulse Ox Last 24 Hr 97.3 F-98.5 F 88-95 17-19 92-112/67-80 99 Constitutional: Yes: Well Nourished, No Distress Eyes: Yes: WNL HENT: Yes: WNL Neck: Yes: WNL Cardiovascular: Yes: Regular Rate and Rhythm Respiratory: Yes: CTA Bilaterally Gastrointestinal: Yes: Normal Bowel Sounds Extremities: Yes: WNL Edema: No Assessment/Plan Acute on chronic systolic HF s/p ICD - admitting symptoms concerning for CHF exacerbation, BNP 8000 - at home was on torsemide 80 mg BID - medication for HF limited due to low BP, had been on spironolactone and losartan at home however has been hypotensive here on diuretics and low dose metoprolol (was on 100 mg BID at home, later decreased to 50 mg BID and now on 25 mg BID) - continue torsemide 80 mg daily, metoprolol 25 mg BID - hold on ACEI/ARB for now, will consider restarting after surgery, planned for Sunday - k repletion Preoperative cardiac evaluation -Planned to have TURP during this admission. While he is stable from a cardiovascular perspective and euvolemic for this procedure, he will need to stop Xarelto for 3 doses and plavix for 5 days (>6m from PCI) prior to minimize bleeding risk. -Mr Franklin has a history of 3v CAD for which an Impella assisted PCI to left main in 04/2017 (Xience 3.5 x 18mm) was done with Dr. Ann. EF 25% on repeat echo 2017, no further cardiac testing prior to TURP CAD s/p LM stent 04/2017 - cont statin, plavix, metoprolol pos troponin -borderline trop elevation with flat trend and nl ck, not c/w acs afib - restarted on metoprolol 25 mg BID with improved rates, up titrate as tolerated however has had low BP - cont xarelto PACO - may be cardiorenal, obstructive - improving with diuresis, curtis placement - renal ultrasound, no obstruction - Cr 1.4 in clinic 12/2017, stable now, plan for TURP this week - appreciate nephrology, urology recs HTN - low BP as above HLD - cont statin DM - manage per primary
--- NOTE | 2018-03-25 12:21 | PN ---
Progress Note (short form) - Note Progress Note: Renal follow up for PACO Pt seen and examined in Tele awake and alert no acute complaints no sob, cp, abd pain, N/V/D Vital Signs Temperature 98.5 F 03/25/18 06:00 Pulse Rate 951 H 03/25/18 06:00 Respiratory Rate 03/25/18 02:00 Blood Pressure 98/70 03/25/18 06:00 O2 Sat by Pulse Oximetry (%) 99 03/24/18 21:00 Intake & Output 03/22/18 03/23/18 03/24/18 03/25/18 23:59 23:59 23:59 23:59 Intake Total 640 800 400 180 Output Total 1400 1300 1600 1250 Balance -760 -500 -1200 -1070 Weight 80 kg NAD awake and alert RRR, No M/R + rales right lung base soft NT/ND no Le edema CBC, BMP 03/25/18 05:30 03/25/18 05:30 Current Medications Allopurinol (Zyloprim -) 100 mg PO DAILY [facility] Last Admin: 03/25/18 09:57 Dose: 100 mg Cholecalciferol (Vitamin D3 -) 2,000 unit PO DAILY [facility] Last Admin: 03/25/18 09:57 Dose: 2,000 unit Docusate Sodium (Colace -) 100 mg PO Q12H PRN PRN Reason: CONSTIPATION Last Admin: 03/24/18 22:47 Dose: 100 mg Escitalopram Oxalate (Lexapro -) 10 mg PO DAILY [facility] Last Admin: 03/25/18 09:58 Dose: 10 mg Finasteride (Proscar -) 5 mg PO DAILY [facility] Last Admin: 03/25/18 09:58 Dose: 5 mg Glipizide (Glucotrol -) 2.5 mg PO DAILY@0700 [facility] Last Admin: 03/25/18 09:57 Dose: 2.5 mg Insulin Aspart (Novolog Vial Sliding Scale -) 1 vial SQ ACHS [facility]; Protocol Last Admin: 03/25/18 06:54 Dose: Not Given Metoprolol Tartrate (Lopressor -) 25 mg PO BID [facility] Last Admin: 03/25/18 11:06 Dose: 25 mg Rosuvastatin Calcium (Crestor -) 10 mg PO HS [facility] Last Admin: 03/24/18 22:41 Dose: 10 mg Tamsulosin HCl (Flomax -) 0.4 mg PO BID@0830,2200 [facility] Last Admin: 03/25/18 08:58 Dose: 0.4 mg Torsemide (Demadex -) 80 mg PO DAILY [facility] Last Admin: 03/25/18 09:58 Dose: 80 mg 78 year old gentleman with Hx of CHF, Hypertension, HLD, DM who presented with SOB and admitted for CHF exacerbation with PACO. #PACO on ? 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
--- NOTE | 2018-03-25 14:07 | PN ---
Progress Note (short form) - Note Progress Note: Overall feels better. No CP or SOB. No acute events overnight. Intake & Output 03/22/18 03/23/18 03/24/18 03/25/18 23:59 23:59 23:59 23:59 Intake Total 640 800 400 180 Output Total 1400 1300 1600 1250 Balance -760 -500 -1200 -1070 Weight 176 lb 5.917 oz Last Vital Signs Temp Pulse Resp BP Pulse Ox 98.5 F 951 H 18 98/70 99 03/25/18 06:00 03/25/18 06:00 03/25/18 02:00 03/25/18 06:00 03/24/18 21:00 Active Medications Allopurinol (Zyloprim -) 100 mg PO DAILY [facility] Last Admin: 03/25/18 09:57 Dose: 100 mg Cholecalciferol (Vitamin D3 -) 2,000 unit PO DAILY [facility] Last Admin: 03/25/18 09:57 Dose: 2,000 unit Docusate Sodium (Colace -) 100 mg PO Q12H PRN PRN Reason: CONSTIPATION Last Admin: 03/24/18 22:47 Dose: 100 mg Escitalopram Oxalate (Lexapro -) 10 mg PO DAILY [facility] Last Admin: 03/25/18 09:58 Dose: 10 mg Finasteride (Proscar -) 5 mg PO DAILY [facility] Last Admin: 03/25/18 09:58 Dose: 5 mg Glipizide (Glucotrol -) 2.5 mg PO DAILY@0700 [facility] Last Admin: 03/25/18 09:57 Dose: 2.5 mg Insulin Aspart (Novolog Vial Sliding Scale -) 1 vial SQ [facility]; Protocol Last Admin: 03/25/18 12:37 Dose: 4 units Metoprolol Tartrate (Lopressor -) 25 mg PO BID [facility] Last Admin: 03/25/18 11:06 Dose: 25 mg Rosuvastatin Calcium (Crestor -) 10 mg PO HS [facility] Last Admin: 03/24/18 22:41 Dose: 10 mg Tamsulosin HCl (Flomax -) 0.4 mg PO BID@0830,2200 [facility] Last Admin: 03/25/18 08:58 Dose: 0.4 mg Torsemide (Demadex -) 80 mg PO DAILY [facility] Last Admin: 03/25/18 09:58 Dose: 80 mg General: awake, alert, NAD HEENT: (-) Pallor CV: RRR Pulm: scattered rhonchi Abd: soft, ND, NT Ext: (-) edema Neuro: Non-focal Laboratory Results - last 24 hr 03/24/18 03/24/18 03/24/18 06:10 17:02 22:45 WBC RBC Hgb Hct MCV MCH MCHC RDW Plt Count MPV Sodium Potassium Chloride Carbon Dioxide Anion Gap BUN Creatinine Creat Clearance w eGFR POC Glucometer 165.21620 282.45807 269.42277 Random Glucose Calcium Phosphorus Magnesium 03/25/18 03/25/18 03/25/18 05:30 05:30 06:18 WBC 8.9 RBC 4.29 Hgb 11.9 Hct 36.6 MCV 85.3 MCH 27.8 MCHC 32.5 RDW 17.2 H Plt Count 230 MPV 8.0 Sodium 136 Potassium 4.1 Chloride 97 L Carbon Dioxide 30 Anion Gap 9 BUN 71 H Creatinine 1.7 H Creat Clearance w eGFR 39.38 POC Glucometer 147.71453 Random Glucose 127 H D Calcium 9.0 Phosphorus 3.8 Magnesium 2.6 H 03/25/18 11:09 WBC RBC Hgb Hct MCV MCH MCHC RDW Plt Count MPV Sodium Potassium Chloride Carbon Dioxide Anion Gap BUN Creatinine Creat Clearance w eGFR POC Glucometer [phone] Random Glucose Calcium Phosphorus Magnesium IMP: Acute on Chronic Systolic Heart Failure Atrial Fibrillation CAD +Troponins likely Demand Ischemia Acute on Chronic Renal Failure HTN DM Hyperlipidemia Hematuria - Diuresis as tolerated - monitor urine output, creatinine - daily weights - replete lytes as needed - incentive spirometry - rate controlled with Beta Mili - AC - O2 to maintain saturation Dr Dalton
--- NOTE | 2018-03-25 19:37 | PN ---
Progress Note, Physician History of Present Illness: Pt is breathing is improved Pt w/o CP, palpitations, abd pain, N, V. - Current Medication List Current Medications: Active Medications Allopurinol (Zyloprim -) 100 mg PO DAILY [facility] Last Admin: 03/25/18 09:57 Dose: 100 mg Cholecalciferol (Vitamin D3 -) 2,000 unit PO DAILY [facility] Last Admin: 03/25/18 09:57 Dose: 2,000 unit Docusate Sodium (Colace -) 100 mg PO Q12H PRN PRN Reason: CONSTIPATION Last Admin: 03/24/18 22:47 Dose: 100 mg Escitalopram Oxalate (Lexapro -) 10 mg PO DAILY [facility] Last Admin: 03/25/18 09:58 Dose: 10 mg Finasteride (Proscar -) 5 mg PO DAILY [facility] Last Admin: 03/25/18 09:58 Dose: 5 mg Glipizide (Glucotrol -) 2.5 mg PO DAILY@0700 [facility] Last Admin: 03/25/18 09:57 Dose: 2.5 mg Insulin Aspart (Novolog Vial Sliding Scale -) 1 vial SQ [facility]; Protocol Last Admin: 03/25/18 17:47 Dose: Not Given Metoprolol Tartrate (Lopressor -) 25 mg PO BID [facility] Last Admin: 03/25/18 11:06 Dose: 25 mg Rosuvastatin Calcium (Crestor -) 10 mg PO HS [facility] Last Admin: 03/24/18 22:41 Dose: 10 mg Tamsulosin HCl (Flomax -) 0.4 mg PO BID@0830,2200 [facility] Last Admin: 03/25/18 08:58 Dose: 0.4 mg Torsemide (Demadex -) 80 mg PO DAILY [facility] Last Admin: 03/25/18 09:58 Dose: 80 mg - Objective Vital Signs: Vital Signs Temperature 98.4 F 03/25/18 17:47 Pulse Rate 97 H 03/25/18 17:47 Respiratory Rate 17 03/25/18 17:47 Blood Pressure 103/75 03/25/18 17:47 O2 Sat by Pulse Oximetry (%) 99 03/25/18 09:00 Constitutional: Yes: Well Nourished, No Distress Cardiovascular: Yes: Regular Rate and Rhythm, S1, S2 Respiratory: Yes: Regular, CTA Bilaterally Gastrointestinal: Yes: Normal Bowel Sounds, Soft. No: Tenderness Edema: No Neurological: Yes: Alert, Oriented Labs: CBC, BMP 03/25/18 05:30 03/25/18 05:30 Problem List - Problems (1) Acute systolic CHF (congestive heart failure) Code(s): I50.21 - ACUTE SYSTOLIC (CONGESTIVE) HEART FAILURE (2) Elevated troponin I level Code(s): R74.8 - ABNORMAL LEVELS OF OTHER SERUM ENZYMES (3) Hypotension Code(s): I95.9 - HYPOTENSION, UNSPECIFIED (4) PACO (acute kidney injury) Code(s): N17.9 - ACUTE KIDNEY FAILURE, UNSPECIFIED (5) CRF (chronic renal failure) Code(s): N18.9 - CHRONIC KIDNEY DISEASE, UNSPECIFIED (6) Hypercholesteremia Code(s): E78.00 - PURE HYPERCHOLESTEROLEMIA, UNSPECIFIED (7) Hypertension Code(s): I10 - ESSENTIAL (PRIMARY) HYPERTENSION (8) Pleural effusion Code(s): J90 - PLEURAL EFFUSION, NOT ELSEWHERE CLASSIFIED (9) CAD (coronary artery disease) Code(s): I25.10 - ATHSCL HEART DISEASE OF [place] CORONARY ARTERY W/O ANG PCTRS (10) AICD (automatic cardioverter/defibrillator) present Code(s): Z95.810 - PRESENCE OF AUTOMATIC (IMPLANTABLE) CARDIAC DEFIBRILLATOR (11) PAF (paroxysmal atrial fibrillation) Code(s): I48.0 - PAROXYSMAL ATRIAL FIBRILLATION (12) Urinary retention Code(s): R33.9 - RETENTION OF URINE, UNSPECIFIED (13) Hematuria Code(s): R31.9 - HEMATURIA, UNSPECIFIED Assessment/Plan Admitted to ICU, transferred to Telemetry. Serial CE -stable; CE were found to be elevated in the settings of PACO and CHF ( probable demand ischemia) ICU/CCM, Cardio, Renal, consults are appreciated. Home med on hold at admission: Losartan, Spironolactone, Torsemide, Metformin. BGM with Novolog coverage. Pt was switched to PO diuretic. Pt is tolerating Metoprolol; pt's blood presure is improved. Pt would benefit of ACEI or ARB; can be restarted as tolerated Pt with UR, had Holt placed, removed for TOV; pt is passing urine but has large residual volume and he is refusing Holt replacement; to f/u with if pt is scheduled for prostate Sx on Sunday (phone call was placed to Dr Boston/ Yojana). Pt was cleared by Cardio, Xarelto and Plavix ids on hold AM labs. PT Pt's case was d/w pt's nurse.
[2018-03-25] MEDS: ZOLPIDEM TARTRATE 5 MG TABLET PO PRN (22:29)
[2018-03-25] MEDS: ROSUVASTATIN CA 10 MG TABLET (FP) PO SCH (22:30)
[2018-03-26] MEDS ORDERED: ALLOPURINOL 100 MG TABLET (FP) PO ONE (03:30)
[2018-03-26] MEDS: INSULIN SLIDING SCALE (NOVOLOG) 1 VIAL SQ SCH ×4 (06:08→21:39)
[2018-03-26] MEDS: glipiZIDE 5 MG TABLET (FP) PO SCH (06:19)
--- NOTE | 2018-03-26 09:08 | PN ---
Progress Note (short form) - Note Progress Note: s: no complaints. no cp, palps, dyspnea, dizziness Tele: afib, PVCs Current Medications Allopurinol (Zyloprim -) 100 mg PO DAILY [facility] Last Admin: 03/25/18 09:57 Dose: 100 mg Cholecalciferol (Vitamin D3 -) 2,000 unit PO DAILY [facility] Last Admin: 03/25/18 09:57 Dose: 2,000 unit Docusate Sodium (Colace -) 100 mg PO Q12H PRN PRN Reason: CONSTIPATION Last Admin: 03/24/18 22:47 Dose: 100 mg Escitalopram Oxalate (Lexapro -) 10 mg PO DAILY [facility] Last Admin: 03/25/18 09:58 Dose: 10 mg Finasteride (Proscar -) 5 mg PO DAILY [facility] Last Admin: 03/25/18 09:58 Dose: 5 mg Glipizide (Glucotrol -) 2.5 mg PO DAILY@0700 [facility] Last Admin: 03/26/18 06:19 Dose: 2.5 mg Insulin Aspart (Novolog Vial Sliding Scale -) 1 vial SQ [facility]; Protocol Last Admin: 03/26/18 06:08 Dose: Not Given Metoprolol Tartrate (Lopressor -) 25 mg PO BID [facility] Last Admin: 03/25/18 22:30 Dose: 25 mg Rosuvastatin Calcium (Crestor -) 10 mg PO HS [facility] Last Admin: 03/25/18 22:30 Dose: 10 mg Tamsulosin HCl (Flomax -) 0.4 mg PO BID@0830,2200 [facility] Last Admin: 03/25/18 22:29 Dose: 0.4 mg Torsemide (Demadex -) 80 mg PO DAILY [facility] Last Admin: 03/25/18 09:58 Dose: 80 mg Zolpidem Tartrate (Ambien -) 5 mg PO HS PRN PRN Reason: SLEEP AID Last Admin: 03/25/18 22:29 Dose: 5 mg - Objective Vital Signs Period Temp Pulse Resp BP Sys/Eisenberg Pulse Ox Last 24 Hr 98.3 F-98.7 F 80-98 15-20 85-108/53-90 96-96 Constitutional: Yes: Well Nourished, No Distress Eyes: Yes: WNL HENT: Yes: WNL Neck: Yes: WNL Cardiovascular: Yes: Regular Rate and Rhythm Respiratory: Yes: CTA Bilaterally Gastrointestinal: Yes: Normal Bowel Sounds Extremities: Yes: WNL Edema: No Assessment/Plan echo with definity 07/2017 dilated LV, EF20-25%, with apical AK, HK of inf and lat [place], grade II diastolic dysfunction, cath 04/2017 MLM 80-90% with severe calc, pLAD [employer] fills with collat from LCX and RCA. EF 15% dyskinetic apex, s/p LM PCI Acute on chronic systolic HF s/p ICD - admitting symptoms concerning for CHF exacerbation, BNP 8000 - at home was on torsemide 80 mg BID - medication for HF limited due to low BP, had been on spironolactone and losartan at home however has been hypotensive here on diuretics and low dose metoprolol (was on 100 mg BID at home, later decreased to 50 mg BID and now on 25 mg BID) - continue torsemide 80 mg daily, metoprolol 25 mg BID - hold on ACEI/ARB for now, will consider restarting after surgery, planned for tomorrow - k repletion Preoperative cardiac evaluation -Planned to have TURP tomorrow. While he is stable from a cardiovascular perspective and euvolemic for this procedure, he will need to stop Xarelto for 3 doses and plavix for 5 days (>6m from PCI) prior to minimize bleeding risk -Mr Franklin has a history of 3v CAD for which an Impella assisted PCI to left main in 04/2017 (Xience 3.5 x 18mm) was done with Dr. Ann. EF 25% on repeat echo 2017, no further cardiac testing prior to TURP CAD s/p LM stent 04/2017 - cont statin, plavix, metoprolol pos troponin -borderline trop elevation with flat trend and nl ck, not c/w acs afib - restarted on metoprolol 25 mg BID with improved rates, up titrate as tolerated however has had low BP - holding xarelto prior to TURP PACO - may be cardiorenal, obstructive - improving with diuresis, curtis placement - renal ultrasound, no obstruction - Cr 1.4 in clinic 12/2017, stable now, plan for TURP this week - appreciate nephrology, urology recs HTN - low BP as above HLD - cont statin DM - manage per primary
[2018-03-26] MEDS: TAMSULOSIN HCL 0.4 MG CAP PO SCH ×2 (09:20→21:47)
[2018-03-26] MEDS: TORSEMIDE 20 MG TABLET (FP) PO SCH (09:21)
[2018-03-26] MEDS: ESCITALOPRAM OXALATE 10 MG TABLET (FP) PO SCH (09:21)
[2018-03-26] MEDS: METOPROLOL TARTRATE 25 MG TABLET (FP) PO SCH ×2 (09:22→21:47)
[2018-03-26] MEDS: CHOLECALCIFEROL (VITAMIN D3) 1,000 UNIT TABLET (FP) PO SCH (09:22)
[2018-03-26] MEDS: FINASTERIDE 5 MG TABLET (FP) PO SCH (09:23)
[2018-03-26] MEDS: ALLOPURINOL 100 MG TABLET (FP) PO SCH (09:23)
--- NOTE | 2018-03-26 10:03 | PN ---
Progress Note (short form) - Note Progress Note: UROLOGY NOTE NPO after midnight for TUVP tomorrow.
--- NOTE | 2018-03-26 12:42 | PN ---
Progress Note (short form) - Note Progress Note: Overall feeling better. No CP or SOB. No acute events overnight. Intake & Output 03/23/18 03/24/18 03/25/18 03/26/18 23:59 23:59 23:59 23:59 Intake Total 800 400 900 340 Output Total 1300 1600 2300 500 Balance -500 -1200 -1400 -160 Weight 176 lb 5.917 oz 174 lb 14.4 oz Last Vital Signs Temp Pulse Resp BP Pulse Ox 98.3 F 98 H 20 107/90 96 03/26/18 06:00 03/26/18 08:34 03/26/18 08:34 03/26/18 08:34 03/26/18 08:30 Active Medications Allopurinol (Zyloprim -) 100 mg PO DAILY [facility] Last Admin: 03/26/18 09:23 Dose: 100 mg Cholecalciferol (Vitamin D3 -) 2,000 unit PO DAILY [facility] Last Admin: 03/26/18 09:22 Dose: 2,000 unit Docusate Sodium (Colace -) 100 mg PO Q12H PRN PRN Reason: CONSTIPATION Last Admin: 03/24/18 22:47 Dose: 100 mg Escitalopram Oxalate (Lexapro -) 10 mg PO DAILY [facility] Last Admin: 03/26/18 09:21 Dose: 10 mg Finasteride (Proscar -) 5 mg PO DAILY [facility] Last Admin: 03/26/18 09:23 Dose: 5 mg Glipizide (Glucotrol -) 2.5 mg PO DAILY@0700 [facility] Last Admin: 03/26/18 06:19 Dose: 2.5 mg Insulin Aspart (Novolog Vial Sliding Scale -) 1 vial SQ [facility]; Protocol Last Admin: 03/26/18 11:48 Dose: 2 units Metoprolol Tartrate (Lopressor -) 25 mg PO BID [facility] Last Admin: 03/26/18 09:22 Dose: 25 mg Rosuvastatin Calcium (Crestor -) 10 mg PO HS [facility] Last Admin: 03/25/18 22:30 Dose: 10 mg Tamsulosin HCl (Flomax -) 0.4 mg PO BID@0830,2200 [facility] Last Admin: 03/26/18 09:20 Dose: 0.4 mg Torsemide (Demadex -) 80 mg PO DAILY [facility] Last Admin: 03/26/18 09:21 Dose: 80 mg Zolpidem Tartrate (Ambien -) 5 mg PO HS PRN PRN Reason: SLEEP AID Last Admin: 03/25/18 22:29 Dose: 5 mg General: awake, alert, NAD HEENT: (-) Pallor CV: RRR Pulm: scattered rhonchi Abd: soft, ND, NT Ext: (-) edema Neuro: Non-focal Laboratory Results - last 24 hr 03/25/18 03/25/18 17:46 21:37 POC Glucometer 94.37515 223.10883 IMP: Acute on Chronic Systolic Heart Failure Atrial Fibrillation CAD +Troponins likely Demand Ischemia Acute on Chronic Renal Failure HTN DM Hyperlipidemia Hematuria - Demadex as tolerated - monitor urine output, creatinine - daily weights - Incentive spirometry - rate controlled with Beta Mili - O2 to maintain saturation - AC and antiplatelet to be held prior to anticipated procedure Dr Dalton
--- NOTE | 2018-03-26 12:49 | PN ---
Progress Note (short form) - Note Progress Note: Renal follow up for PACO Pt seen and examined in Tele no acute complaints no overnight events urinating no abd pain, flank pain, dysuria, sob, cp Vital Signs Temperature 98.3 F 03/26/18 06:00 Pulse Rate 98 H 03/26/18 08:34 Respiratory Rate 20 03/26/18 08:34 Blood Pressure 107/90 03/26/18 08:34 O2 Sat by Pulse Oximetry (%) 96 03/26/18 08:30 NAD awake and alert RRR, No M/R dec BS at lung bases soft NT/ND no Le edema CBC, BMP 03/25/18 05:30 03/25/18 05:30 Current Medications Allopurinol (Zyloprim -) 100 mg PO DAILY [facility] Last Admin: 03/26/18 09:23 Dose: 100 mg Cholecalciferol (Vitamin D3 -) 2,000 unit PO DAILY [facility] Last Admin: 03/26/18 09:22 Dose: 2,000 unit Docusate Sodium (Colace -) 100 mg PO Q12H PRN PRN Reason: CONSTIPATION Last Admin: 03/24/18 22:47 Dose: 100 mg Escitalopram Oxalate (Lexapro -) 10 mg PO DAILY [facility] Last Admin: 03/26/18 09:21 Dose: 10 mg Finasteride (Proscar -) 5 mg PO DAILY [facility] Last Admin: 03/26/18 09:23 Dose: 5 mg Glipizide (Glucotrol -) 2.5 mg PO DAILY@0700 [facility] Last Admin: 03/26/18 06:19 Dose: 2.5 mg Insulin Aspart (Novolog Vial Sliding Scale -) 1 vial SQ [facility]; Protocol Last Admin: 03/26/18 11:48 Dose: 2 units Metoprolol Tartrate (Lopressor -) 25 mg PO BID [facility] Last Admin: 03/26/18 09:22 Dose: 25 mg Rosuvastatin Calcium (Crestor -) 10 mg PO HS [facility] Last Admin: 03/25/18 22:30 Dose: 10 mg Tamsulosin HCl (Flomax -) 0.4 mg PO BID@0830,2200 [facility] Last Admin: 03/26/18 09:20 Dose: 0.4 mg Torsemide (Demadex -) 80 mg PO DAILY [facility] Last Admin: 03/26/18 09:21 Dose: 80 mg Zolpidem Tartrate (Ambien -) 5 mg PO HS PRN PRN Reason: SLEEP AID Last Admin: 03/25/18 22:29 Dose: 5 mg 78 year old gentleman with Hx of CHF, Hypertension, HLD, DM who presented with SOB and admitted for CHF exacerbation with PACO. #PACO on ? 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
[2018-03-26] MEDS ORDERED: PT OWN MED DRAWER 7, Y5N ONE (21:44)
[2018-03-26] MEDS: ZOLPIDEM TARTRATE 5 MG TABLET PO PRN (21:47)
[2018-03-26] MEDS: ROSUVASTATIN CA 10 MG TABLET (FP) PO SCH (21:55)
--- NOTE | 2018-03-26 23:14 | PN ---
Progress Note, Physician History of Present Illness: Pt is breathing is improved Pt w/o CP, palpitations, abd pain, N, V. Pt is urinating several times per day. - Current Medication List Current Medications: Active Medications Allopurinol (Zyloprim -) 100 mg PO DAILY [facility] Last Admin: 03/26/18 09:23 Dose: 100 mg Cholecalciferol (Vitamin D3 -) 2,000 unit PO DAILY [facility] Last Admin: 03/26/18 09:22 Dose: 2,000 unit Docusate Sodium (Colace -) 100 mg PO Q12H PRN PRN Reason: CONSTIPATION Last Admin: 03/24/18 22:47 Dose: 100 mg Escitalopram Oxalate (Lexapro -) 10 mg PO DAILY [facility] Last Admin: 03/26/18 09:21 Dose: 10 mg Finasteride (Proscar -) 5 mg PO DAILY [facility] Last Admin: 03/26/18 09:23 Dose: 5 mg Glipizide (Glucotrol -) 2.5 mg PO DAILY@0700 [facility] Last Admin: 03/26/18 06:19 Dose: 2.5 mg Insulin Aspart (Novolog Vial Sliding Scale -) 1 vial SQ [facility]; Protocol Last Admin: 03/26/18 21:39 Dose: Not Given Metoprolol Tartrate (Lopressor -) 25 mg PO BID [facility] Last Admin: 03/26/18 21:47 Dose: 25 mg Rosuvastatin Calcium (Crestor -) 10 mg PO HS [facility] Last Admin: 03/26/18 21:55 Dose: 10 mg Tamsulosin HCl (Flomax -) 0.4 mg PO BID@0830,2200 [facility] Last Admin: 03/26/18 21:47 Dose: 0.4 mg Torsemide (Demadex -) 80 mg PO DAILY [facility] Last Admin: 03/26/18 09:21 Dose: 80 mg Zolpidem Tartrate (Ambien -) 5 mg PO HS PRN PRN Reason: SLEEP AID Last Admin: 03/26/18 21:47 Dose: 5 mg - Objective Vital Signs: Vital Signs Temperature 97.6 F 03/26/18 18:00 Pulse Rate 97 H 03/26/18 20:00 Respiratory Rate 20 03/26/18 21:00 Blood Pressure 100/68 03/26/18 20:00 O2 Sat by Pulse Oximetry (%) 96 03/26/18 21:00 Constitutional: Yes: No Distress, Calm Cardiovascular: Yes: Regular Rate and Rhythm, S1, S2 Respiratory: Yes: Regular, Rales (minimal crackles at bases) Gastrointestinal: Yes: Normal Bowel Sounds, Soft. No: Tenderness Edema: No Neurological: Yes: Alert, Oriented Labs: CBC, BMP 03/25/18 05:30 03/25/18 05:30 Problem List - Problems (1) Acute systolic CHF (congestive heart failure) Code(s): I50.21 - ACUTE SYSTOLIC (CONGESTIVE) HEART FAILURE (2) Elevated troponin I level Code(s): R74.8 - ABNORMAL LEVELS OF OTHER SERUM ENZYMES (3) Hypotension Code(s): I95.9 - HYPOTENSION, UNSPECIFIED (4) PACO (acute kidney injury) Code(s): N17.9 - ACUTE KIDNEY FAILURE, UNSPECIFIED (5) CRF (chronic renal failure) Code(s): N18.9 - CHRONIC KIDNEY DISEASE, UNSPECIFIED (6) Hypercholesteremia Code(s): E78.00 - PURE HYPERCHOLESTEROLEMIA, UNSPECIFIED (7) Hypertension Code(s): I10 - ESSENTIAL (PRIMARY) HYPERTENSION (8) Pleural effusion Code(s): J90 - PLEURAL EFFUSION, NOT ELSEWHERE CLASSIFIED (9) CAD (coronary artery disease) Code(s): I25.10 - ATHSCL HEART DISEASE OF [place] CORONARY ARTERY W/O ANG PCTRS (10) AICD (automatic cardioverter/defibrillator) present Code(s): Z95.810 - PRESENCE OF AUTOMATIC (IMPLANTABLE) CARDIAC DEFIBRILLATOR (11) PAF (paroxysmal atrial fibrillation) Code(s): I48.0 - PAROXYSMAL ATRIAL FIBRILLATION (12) Urinary retention Code(s): R33.9 - RETENTION OF URINE, UNSPECIFIED (13) Hematuria Code(s): R31.9 - HEMATURIA, UNSPECIFIED Assessment/Plan Admitted to ICU, transferred to Telemetry. Serial CE -stable; CE were found to be elevated in the settings of PACO and CHF ( probable demand ischemia) ICU/CCM, Cardio, Renal, consults are appreciated. Home med on hold at admission: Losartan, Spironolactone, Torsemide, Metformin. BGM with Novolog coverage. Pt was switched to PO diuretic. Pt is tolerating Metoprolol; pt's blood presure is improved. Pt would benefit of ACEI or ARB; can be restarted as tolerated Pt with UR, had Holt placed, removed for TOV; pt is passing urine but has large residual volume and he is refusing Holt replacement; pt was scheduled by for prostate surgery in AM. Pt was cleared by Cardio for prostate surgery. is aware about Xarelto and Plavix management recommendations. AM labs. Pt's case was d/w pt's nurse.
[2018-03-26] MEDS ORDERED: glipiZIDE 5 MG TABLET (FP) PO SCH (23:15)
[2018-03-27 05:42] LABS: HEMATOCRIT 40.1 % (35.4-49); HEMOGLOBIN 12.8 GM/dL (11.7-16.9); MCH 27.4 pg (25.7-33.7); MEAN CELL VOLUME 85.9 fl (80-96); MEAN PLT VOLUME 7.1 fl (7.5-11.1); PLATELET COUNT 231 K/MM3 (134-434); RBC 4.67 M/mm3 (4.00-5.60); RDW 17.4 % (11.9-15.9); WHITE BLOOD COUNT 10.3 K/mm3 (4.0-10.0)
[2018-03-27 06:07] LABS: ALBUMIN 3.2 g/dl (3.4-5.0); ANION GAP 8 MMOL/L (8-16); BILIRUBIN,TOTAL 0.7 mg/dL (0.2-1.0); BLOOD UREA NITROGEN 52 mg/dL (7-18); CALCIUM 9.1 mg/dL (8.5-10.1); CHLORIDE 103 mmol/L (98-107); CO2 30 mmol/L (21-32); CREATININE 1.5 mg/dL (0.7-1.3); GLUCOSE,RANDOM 154 mg/dL (74-106); MAGNESIUM 2.5 mg/dL (1.8-2.4); PHOSPHOROUS 3.2 mg/dL (2.5-4.9); POTASSIUM 4.2 mmol/L (3.5-5.1); SGOT/AST 13 U/L (15-37); SGPT/ALT 17 U/L (12-78); SODIUM 141 mmol/L (136-145); TOT PROT 6.6 g/dl (6.4-8.2)
[2018-03-27 06:08] LABS: ALK PHOS 58 U/L (45-117)
[2018-03-27] MEDS: INSULIN SLIDING SCALE (NOVOLOG) 1 VIAL SQ SCH ×4 (06:32→21:24)
[2018-03-27] MEDS: TAMSULOSIN HCL 0.4 MG CAP PO SCH ×2 (09:22→22:23)
[2018-03-27] MEDS: METOPROLOL TARTRATE 25 MG TABLET (FP) PO SCH ×2 (09:23→21:16)
[2018-03-27] MEDS: ESCITALOPRAM OXALATE 10 MG TABLET (FP) PO SCH (09:23)
[2018-03-27] MEDS: TORSEMIDE 20 MG TABLET (FP) PO SCH (09:23)
[2018-03-27] MEDS: CHOLECALCIFEROL (VITAMIN D3) 1,000 UNIT TABLET (FP) PO SCH (09:24)
[2018-03-27] MEDS: FINASTERIDE 5 MG TABLET (FP) PO SCH (09:24)
[2018-03-27] MEDS: ALLOPURINOL 100 MG TABLET (FP) PO SCH (09:24)
--- NOTE | 2018-03-27 09:40 | PN ---
Progress Note, Physician History of Present Illness: Pt is sleeping flat. Pt w/o CP, palpitations, abd pain, N, V. Pt is urinating several times per day. - Current Medication List Current Medications: Active Medications Allopurinol (Zyloprim -) 100 mg PO DAILY [facility] Last Admin: 03/27/18 09:24 Dose: 100 mg Cholecalciferol (Vitamin D3 -) 2,000 unit PO DAILY [facility] Last Admin: 03/27/18 09:24 Dose: 2,000 unit Docusate Sodium (Colace -) 100 mg PO Q12H PRN PRN Reason: CONSTIPATION Last Admin: 03/24/18 22:47 Dose: 100 mg Escitalopram Oxalate (Lexapro -) 10 mg PO DAILY [facility] Last Admin: 03/27/18 09:23 Dose: 10 mg Finasteride (Proscar -) 5 mg PO DAILY [facility] Last Admin: 03/27/18 09:24 Dose: 5 mg Glipizide (Glucotrol -) 2.5 mg PO DAILY@0700 [facility] Last Admin: 03/27/18 09:01 Dose: Not Given Insulin Aspart (Novolog Vial Sliding Scale -) 1 vial SQ [facility]; Protocol Last Admin: 03/27/18 06:32 Dose: Not Given Metoprolol Tartrate (Lopressor -) 25 mg PO BID [facility] Last Admin: 03/27/18 09:23 Dose: 25 mg Rosuvastatin Calcium (Crestor -) 10 mg PO HS [facility] Last Admin: 03/26/18 21:55 Dose: 10 mg Tamsulosin HCl (Flomax -) 0.4 mg PO BID@0830,2200 [facility] Last Admin: 03/27/18 09:22 Dose: 0.4 mg Torsemide (Demadex -) 80 mg PO DAILY [facility] Last Admin: 03/27/18 09:23 Dose: 80 mg Zolpidem Tartrate (Ambien -) 5 mg PO HS PRN PRN Reason: SLEEP AID Last Admin: 03/26/18 21:47 Dose: 5 mg - Objective Vital Signs: Vital Signs Temperature 97.8 F 03/27/18 01:00 Pulse Rate 92 H 03/27/18 08:00 Respiratory Rate 14 03/27/18 08:00 Blood Pressure 104/78 03/27/18 08:00 O2 Sat by Pulse Oximetry (%) 96 03/26/18 21:00 Constitutional: Yes: No Distress, Calm Cardiovascular: Yes: Regular Rate and Rhythm, S1, S2 Respiratory: Yes: Regular, CTA Bilaterally. No: Rales Gastrointestinal: Yes: Normal Bowel Sounds, Soft. No: Tenderness Edema: No Neurological: Yes: Alert, Oriented Labs: CBC, BMP 03/27/18 05:30 03/27/18 05:30 Problem List - Problems (1) Acute systolic CHF (congestive heart failure) Code(s): I50.21 - ACUTE SYSTOLIC (CONGESTIVE) HEART FAILURE (2) Elevated troponin I level Code(s): R74.8 - ABNORMAL LEVELS OF OTHER SERUM ENZYMES (3) Hypotension Code(s): I95.9 - HYPOTENSION, UNSPECIFIED (4) PACO (acute kidney injury) Code(s): N17.9 - ACUTE KIDNEY FAILURE, UNSPECIFIED (5) CRF (chronic renal failure) Code(s): N18.9 - CHRONIC KIDNEY DISEASE, UNSPECIFIED (6) Hypercholesteremia Code(s): E78.00 - PURE HYPERCHOLESTEROLEMIA, UNSPECIFIED (7) Hypertension Code(s): I10 - ESSENTIAL (PRIMARY) HYPERTENSION (8) Pleural effusion Code(s): J90 - PLEURAL EFFUSION, NOT ELSEWHERE CLASSIFIED (9) CAD (coronary artery disease) Code(s): I25.10 - ATHSCL HEART DISEASE OF [place] CORONARY ARTERY W/O ANG PCTRS (10) AICD (automatic cardioverter/defibrillator) present Code(s): Z95.810 - PRESENCE OF AUTOMATIC (IMPLANTABLE) CARDIAC DEFIBRILLATOR (11) PAF (paroxysmal atrial fibrillation) Code(s): I48.0 - PAROXYSMAL ATRIAL FIBRILLATION (12) Urinary retention Code(s): R33.9 - RETENTION OF URINE, UNSPECIFIED (13) Hematuria Code(s): R31.9 - HEMATURIA, UNSPECIFIED Assessment/Plan Admitted to ICU, transferred to Telemetry. Serial CE -stable; CE were found to be elevated in the settings of PACO and CHF ( probable demand ischemia) ICU/CCM, Cardio, Renal, consults are appreciated. Home med on hold at admission: Losartan, Spironolactone, Torsemide, Metformin. BGM with Novolog coverage. Pt was switched to PO diuretic. Pt is tolerating Metoprolol; pt's blood presure is improved. Pt would benefit of ACEI or ARB; can be restarted as tolerated Pt with UR, had Holt placed, removed for TOV; pt is passing urine but has large residual volume and he is refusing Holt replacement; pt is scheduled by for prostate surgery today. Pt was cleared by Cardio for prostate surgery. is aware about Xarelto and Plavix management recommendations. AM labs. Pt's case was d/w pt's nurse.
--- NOTE | 2018-03-27 11:09 | PN ---
Progress Note (short form) - Note Progress Note: s: no complaints. no cp, palps, dyspnea, dizziness Tele: afib, PVCs Current Medications Allopurinol (Zyloprim -) 100 mg PO DAILY [facility] Last Admin: 03/27/18 09:24 Dose: 100 mg Cholecalciferol (Vitamin D3 -) 2,000 unit PO DAILY [facility] Last Admin: 03/27/18 09:24 Dose: 2,000 unit Docusate Sodium (Colace -) 100 mg PO Q12H PRN PRN Reason: CONSTIPATION Last Admin: 03/24/18 22:47 Dose: 100 mg Escitalopram Oxalate (Lexapro -) 10 mg PO DAILY [facility] Last Admin: 03/27/18 09:23 Dose: 10 mg Finasteride (Proscar -) 5 mg PO DAILY [facility] Last Admin: 03/27/18 09:24 Dose: 5 mg Glipizide (Glucotrol -) 2.5 mg PO DAILY@0700 [facility] Last Admin: 03/27/18 09:01 Dose: Not Given Insulin Aspart (Novolog Vial Sliding Scale -) 1 vial SQ [facility]; Protocol Last Admin: 03/27/18 06:32 Dose: Not Given Metoprolol Tartrate (Lopressor -) 25 mg PO BID [facility] Last Admin: 03/27/18 09:23 Dose: 25 mg Rosuvastatin Calcium (Crestor -) 10 mg PO HS [facility] Last Admin: 03/26/18 21:55 Dose: 10 mg Tamsulosin HCl (Flomax -) 0.4 mg PO BID@0830,2200 [facility] Last Admin: 03/27/18 09:22 Dose: 0.4 mg Torsemide (Demadex -) 80 mg PO DAILY [facility] Last Admin: 03/27/18 09:23 Dose: 80 mg Zolpidem Tartrate (Ambien -) 5 mg PO HS PRN PRN Reason: SLEEP AID Last Admin: 03/26/18 21:47 Dose: 5 mg - Objective Vital Signs Period Temp Pulse Resp BP Sys/Eisenberg Pulse Ox Last 24 Hr 97.6 F-98.1 F 88-98 13-22 87-106/65-78 96-98 Constitutional: Yes: Well Nourished, No Distress Eyes: Yes: WNL HENT: Yes: WNL Neck: Yes: WNL Cardiovascular: Yes: Regular Rate and Rhythm Respiratory: Yes: CTA Bilaterally Gastrointestinal: Yes: Normal Bowel Sounds Extremities: Yes: WNL Edema: No Assessment/Plan echo with definity 07/2017 dilated LV, EF20-25%, with apical AK, HK of inf and lat [place], grade II diastolic dysfunction, cath 04/2017 MLM 80-90% with severe calc, pLAD [employer] fills with collat from LCX and RCA. EF 15% dyskinetic apex, s/p LM PCI Acute on chronic systolic HF s/p ICD - admitting symptoms concerning for CHF exacerbation, BNP 8000 - at home was on torsemide 80 mg BID - medication for HF limited due to low BP, had been on spironolactone and losartan at home however has been hypotensive here on diuretics and low dose metoprolol (was on 100 mg BID at home, later decreased to 50 mg BID and now on 25 mg BID) - continue torsemide 80 mg daily, metoprolol 25 mg BID, Cr stable - hold on ACEI/ARB for now, will consider restarting after surgery, planned for tomorrow - k repletion Preoperative cardiac evaluation -Planned to have TURP today While he is stable from a cardiovascular perspective and euvolemic for this procedure, he will need to stop Xarelto for 3 doses and plavix for 5 days (>6m from PCI) prior to minimize bleeding risk -Mr Franklin has a history of 3v CAD for which an Impella assisted PCI to left main in 04/2017 (Xience 3.5 x 18mm) was done with Dr. Ann. EF 25% on repeat echo 2017, no further cardiac testing prior to TURP CAD s/p LM stent 04/2017 - cont statin, plavix, metoprolol pos troponin -borderline trop elevation with flat trend and nl ck, not c/w acs afib - restarted on metoprolol 25 mg BID with improved rates, up titrate as tolerated however has had low BP - holding xarelto prior to TURP PACO - may be cardiorenal, obstructive - improving with diuresis, curtis placement - renal ultrasound, no obstruction - Cr 1.4 in clinic 12/2017, stable now, plan for TURP today - appreciate nephrology, urology recs HTN - low BP as above HLD - cont statin DM - manage per primary
--- NOTE | 2018-03-27 11:38 | PN ---
Progress Note (short form) - Note Progress Note: Renal follow up for PACO Pt seen and examined in Tele no acute complaints awaiting turp denies any sob, cp, abd pain, N/V/D Vital Signs Temperature 98.1 F 03/27/18 11:06 Pulse Rate 98 H 03/27/18 10:39 Respiratory Rate 14 03/27/18 10:39 Blood Pressure 99/65 03/27/18 10:39 O2 Sat by Pulse Oximetry (%) 98 03/27/18 09:00 Intake & Output 03/24/18 03/25/18 03/26/18 03/27/18 23:59 23:59 23:59 23:59 Intake Total 400 900 590 Output Total 1600 2300 900 400 Balance -1200 -1400 -310 -400 Weight 80 kg 79.333 kg 78.925 kg NAD awake and alert RRR, No M/R dec BS at lung bases soft NT/ND no Le edema CBC, BMP 03/27/18 05:30 03/27/18 05:30 Current Medications Allopurinol (Zyloprim -) 100 mg PO DAILY [facility] Last Admin: 03/27/18 09:24 Dose: 100 mg Cholecalciferol (Vitamin D3 -) 2,000 unit PO DAILY [facility] Last Admin: 03/27/18 09:24 Dose: 2,000 unit Docusate Sodium (Colace -) 100 mg PO Q12H PRN PRN Reason: CONSTIPATION Last Admin: 03/24/18 22:47 Dose: 100 mg Escitalopram Oxalate (Lexapro -) 10 mg PO DAILY [facility] Last Admin: 03/27/18 09:23 Dose: 10 mg Finasteride (Proscar -) 5 mg PO DAILY [facility] Last Admin: 03/27/18 09:24 Dose: 5 mg Glipizide (Glucotrol -) 2.5 mg PO DAILY@0700 [facility] Last Admin: 03/27/18 09:01 Dose: Not Given Insulin Aspart (Novolog Vial Sliding Scale -) 1 vial SQ [facility]; Protocol Last Admin: 03/27/18 11:09 Dose: Not Given Metoprolol Tartrate (Lopressor -) 25 mg PO BID [facility] Last Admin: 03/27/18 09:23 Dose: 25 mg Rosuvastatin Calcium (Crestor -) 10 mg PO HS [facility] Last Admin: 09/11/18 21:55 Dose: 10 mg Tamsulosin HCl (Flomax -) 0.4 mg PO BID@0830,2200 [facility] Last Admin: 03/27/18 09:22 Dose: 0.4 mg Torsemide (Demadex -) 80 mg PO DAILY [facility] Last Admin: 03/27/18 09:23 Dose: 80 mg Zolpidem Tartrate (Ambien -) 5 mg PO HS PRN PRN Reason: SLEEP AID Last Admin: 03/26/18 21:47 Dose: 5 mg 78 year old gentleman with Hx of CHF, Hypertension, HLD, DM who presented with SOB and admitted for CHF exacerbation with PACO. #PACO on ? 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
--- NOTE | 2018-03-27 13:17 | PN ---
Progress Note (short form) - Note Progress Note: PULMONARY Denies shortness of breath or chest pain. For TURP today. Vital Signs Period Temp Pulse Resp BP Sys/Eisenberg Pulse Ox Last 24 Hr 97.6 F-98.1 F 80-98 13-22 87-106/65-78 96-98 Intake & Output 03/24/18 03/25/18 03/26/18 03/27/18 23:59 23:59 23:59 23:59 Intake Total 400 900 590 Output Total 1600 2300 900 900 Balance -1200 -1400 -310 -900 Weight 80 kg 79.333 kg 78.925 kg Gen: NAD at rest Heart: irregular Lung: decreased breath sounds at the bases Abd: soft, nontender Ext: no edema CBC, BMP 03/27/18 05:30 03/27/18 05:30 Active Medications Allopurinol (Zyloprim -) 100 mg PO DAILY [facility] Last Admin: 03/27/18 09:24 Dose: 100 mg Cholecalciferol (Vitamin D3 -) 2,000 unit PO DAILY [facility] Last Admin: 03/27/18 09:24 Dose: 2,000 unit Docusate Sodium (Colace -) 100 mg PO Q12H PRN PRN Reason: CONSTIPATION Last Admin: 03/24/18 22:47 Dose: 100 mg Escitalopram Oxalate (Lexapro -) 10 mg PO DAILY [facility] Last Admin: 03/27/18 09:23 Dose: 10 mg Finasteride (Proscar -) 5 mg PO DAILY [facility] Last Admin: 03/27/18 09:24 Dose: 5 mg Glipizide (Glucotrol -) 2.5 mg PO DAILY@0700 [facility] Last Admin: 03/27/18 09:01 Dose: Not Given Insulin Aspart (Novolog Vial Sliding Scale -) 1 vial SQ [facility]; Protocol Last Admin: 03/27/18 11:09 Dose: Not Given Metoprolol Tartrate (Lopressor -) 25 mg PO BID [facility] Last Admin: 03/27/18 09:23 Dose: 25 mg Rosuvastatin Calcium (Crestor -) 10 mg PO HS [facility] Last Admin: 03/26/18 21:55 Dose: 10 mg Tamsulosin HCl (Flomax -) 0.4 mg PO BID@0830,2200 [facility] Last Admin: 03/27/18 09:22 Dose: 0.4 mg Torsemide (Demadex -) 80 mg PO DAILY [facility] Last Admin: 03/27/18 09:23 Dose: 80 mg Zolpidem Tartrate (Ambien -) 5 mg PO HS PRN PRN Reason: SLEEP AID Last Admin: 03/26/18 21:47 Dose: 5 mg A/P Acute on Chronic Systolic Heart Failure Atrial Fibrillation CAD +Troponins likely Demand Ischemia Acute on Chronic Renal Failure HTN DM Hyperlipidemia Hematuria - continue torsemide - monitor urine output, creatinine - daily weights - replete lytes - rate controlled - continue anticoagulation - O2 to keep SpO2 >90% - for TURP, no pulmonary contraindications for planned surgery
[2018-03-27] MEDS ORDERED: ETOMIDATE 20 MG/10 ML AMPUL IVPUSH ONE (13:54)
[2018-03-27] MEDS ORDERED: LIDOCAINE HCL/PF 2% SDV 5ML VIAL ONE (13:55)
[2018-03-27] MEDS ORDERED: ceFAZolin SODIUM 1 GM VIAL IVPB ONE (14:00)
[2018-03-27] MEDS ORDERED: PROPOFOL 20 ML ONE (14:00)
[2018-03-27] MEDS ORDERED: ceFAZolin SODIUM 1 GM VIAL ONE (14:06)
--- NOTE | 2018-03-27 14:54 | OP ---
Operative Note - Note: Operative Date: 03/27/18 Pre-Operative Diagnosis: Urinary Retention and BPH Operation: Cysto TUVP Findings: Large trilobar obstructive prostate Post-Operative Diagnosis: Same as Pre-op Surgeon: Jimmy Phelps Anesthesia: General Drains & Tubes with Location: [address] Operative Report Dictated: Yes
[2018-03-27] MEDS ORDERED: ONDANSETRON 4 MG/2 ML VIAL IVPUSH PRN (15:04)
[2018-03-27] MEDS: ACETAMINOPHEN 1000 MG/100 ML VIAL (NON FORMULARY) IVPB PRN ×2 (15:58→22:22)
[2018-03-27] MEDS ORDERED: DOCUSATE SODIUM 100 MG CAPSULE (FP) PO PRN (16:05)
[2018-03-27] MEDS: SODIUM CHLORIDE 1,000 ML IV SCH (16:30)
[2018-03-27] MEDS ORDERED: CEFAZOLIN 1 GM/D5W 1 GM/50 ML BAG IVPB SCH (18:00)
[2018-03-27] MEDS: CEFAZOLIN 1 GM in DEXTROSE 5%-WATER - 50 ML IVPB SCH (18:38)
[2018-03-27] MEDS ORDERED: PT OWN MED DRAWER 7, Y5N ONE ×2 (18:54→21:11)
[2018-03-27] MEDS ORDERED: HEMOQUE TEST 1 EACH EACH ONE (21:20)
[2018-03-27] MEDS: ZOLPIDEM TARTRATE 5 MG TABLET PO PRN (22:22)
[2018-03-27] MEDS: ROSUVASTATIN CA 10 MG TABLET (FP) PO SCH (22:23)
[2018-03-28] MEDS ORDERED: ceFAZolin SODIUM 1 GM VIAL ONE ×3 (01:52→17:40)
[2018-03-28] MEDS ORDERED: DEXTROSE 5%-WATER - 50 ML IVPB ONE ×3 (01:52→17:40)
[2018-03-28] MEDS: CEFAZOLIN 1 GM in DEXTROSE 5%-WATER - 50 ML IVPB SCH ×3 (01:57→17:52)
[2018-03-28 06:00] LABS: HEMATOCRIT 37.4 % (35.4-49); HEMOGLOBIN 11.8 GM/dL (11.7-16.9); MCH 27.2 pg (25.7-33.7); MCHC 31.6 g/dl (32.0-35.9); MEAN CELL VOLUME 86.2 fl (80-96); MEAN PLT VOLUME 7.7 fl (7.5-11.1); PLATELET COUNT 220 K/MM3 (134-434); RBC 4.34 M/mm3 (4.00-5.60); RDW 16.8 % (11.9-15.9); WHITE BLOOD COUNT 11.6 K/mm3 (4.0-10.0)
[2018-03-28] MEDS ORDERED: PT OWN MED DRAWER 7, Y5N ONE (06:10)
[2018-03-28] MEDS: INSULIN SLIDING SCALE (NOVOLOG) 1 VIAL SQ SCH ×4 (06:17→21:17)
[2018-03-28] MEDS: glipiZIDE 5 MG TABLET (FP) PO SCH (06:18)
[2018-03-28 06:23] LABS: ALBUMIN 2.9 g/dl (3.4-5.0); ANION GAP 9 MMOL/L (8-16); BLOOD UREA NITROGEN 55 mg/dL (7-18); CALCIUM 8.4 mg/dL (8.5-10.1); CHLORIDE 100 mmol/L (98-107); CO2 28 mmol/L (21-32); GLUCOSE,RANDOM 136 mg/dL (74-106); POTASSIUM 4.1 mmol/L (3.5-5.1); SGOT/AST 18 U/L (15-37); SGPT/ALT 15 U/L (13-61); SODIUM 137 mmol/L (136-145)
[2018-03-28 06:25] LABS: ALK PHOS 54 U/L (45-117); BILIRUBIN,TOTAL 0.6 mg/dL (0.2-1.0); CREATININE 1.6 mg/dL (0.7-1.3); TOT PROT 6.2 g/dl (6.4-8.2)
--- NOTE | 2018-03-28 08:23 | PN ---
Progress Note (short form) - Note Progress Note: POD #1 - s/p cysto/TURP under GA. VSS. Pt. doing well, resting comfortably in bed. No complaints. No apparent anesthetic complications noted. Continue current care.
[2018-03-28] MEDS: TAMSULOSIN HCL 0.4 MG CAP PO SCH ×2 (08:25→21:16)
--- NOTE | 2018-03-28 08:44 | OP ---
DATE OF OPERATION: 03/27/2018 SURGEON: Jimmy Phelps MD ANESTHESIA: General. PREOPERATIVE DIAGNOSIS: Urinary retention and benign prostatic hypertrophy. POSTOPERATIVE DIAGNOSIS: Urinary retention and benign prostatic hypertrophy. PROCEDURE: Cystoscopy and transurethral vaporization of the prostate. FINDINGS: Trilobar hypertrophy of the prostate noted, obstructive in nature. Bladder shows severe cystitic changes. No evidence of any other abnormality noted. DESCRIPTION OF PROCEDURE: Patient in lithotomy position under general anesthesia was prepped and draped in the usual manner. Using 26 ACMI bipolar resectoscope, cystoscopy was first performed and bladder was inspected. Then, using the button, vaporization of the prostate carried out. A good channel was noted. The instruments were withdrawn. A 22 Holt was left indwelling. Patient tolerated the procedure well and left the operating room in a satisfactory condition. JIMMY PHELPS M.D. [id number]
[2018-03-28] MEDS: ALLOPURINOL 100 MG TABLET (FP) PO SCH (10:36)
[2018-03-28] MEDS: CHOLECALCIFEROL (VITAMIN D3) 1,000 UNIT TABLET (FP) PO SCH (10:36)
[2018-03-28] MEDS: FINASTERIDE 5 MG TABLET (FP) PO SCH (10:37)
[2018-03-28] MEDS: ESCITALOPRAM OXALATE 10 MG TABLET (FP) PO SCH (10:37)
[2018-03-28] MEDS: METOPROLOL TARTRATE 25 MG TABLET (FP) PO SCH ×2 (10:37→21:16)
[2018-03-28] MEDS: TORSEMIDE 20 MG TABLET (FP) PO SCH (10:37)
--- NOTE | 2018-03-28 11:20 | PN ---
Progress Note (short form) - Note Progress Note: Post Op Day 1 Pt. is doing well. No complaints. Urine appears to be clearing. Will d/c CBI. OOB. Progress satisfactory
--- NOTE | 2018-03-28 11:46 | PN ---
Progress Note (short form) - Note Progress Note: s: no cp palps dizzy sob. o: Vital Signs Period Temp Pulse Resp BP Sys/Eisenberg Pulse Ox Last 24 Hr 97.4 F-98.0 F 79-96 10-20 85-111/64-82 93-100 Constitutional: Yes: Well Nourished, No Distress, Calm Eyes: Yes: Conjunctiva Clear Neck: Yes: Supple, Trachea Midline Respiratory: Yes: cta bl nl eff Gastrointestinal: Yes: Normal Bowel Sounds, Soft Cardiovascular: Yes: Regular Rate and Rhythm JVD: Yes Heart Sounds: Yes: S1, S2 Edema: Yes Edema: no Psychiatric: Yes: Alert, Oriented no jaundice diaphoresis Current Medications Generic Name Dose Route Start Last Admin Trade Name Freq PRN Reason Stop Dose Admin Acetaminophen 1,000 mg 03/27/18 15:04 03/27/18 22:22 Ofirmev Injection - IVPB 1,000 mg Q6H PRN Administration FEVER Allopurinol 100 mg 03/28/18 10:00 03/28/18 10:36 Zyloprim - PO 100 mg DAILY [facility] Administration Cholecalciferol 2,000 unit 03/28/18 10:00 03/28/18 10:36 Vitamin D3 - PO 2,000 unit DAILY [facility] Administration Docusate Sodium 100 mg 03/27/18 16:05 Colace - PO Q12H PRN CONSTIPATION Escitalopram Oxalate 10 mg 03/28/18 10:00 03/28/18 10:37 Lexapro - PO 10 mg DAILY [facility] Administration Fentanyl 25 mcg 03/27/18 15:04 03/27/18 14:20 Sublimaze Injection - IVPUSH 25 mcg [id number] PRN Administration PAIN-PACU ORDER X 4 DOSES ONLY Finasteride 5 mg 03/28/18 10:00 03/28/18 10:37 Proscar - PO 5 mg DAILY [facility] Administration Glipizide 2.5 mg 03/28/18 07:00 03/28/18 06:18 Glucotrol - PO 2.5 mg DAILY@0700 [facility] Administration Sodium Chloride 1,000 mls @ 75 mls/hr 03/27/18 15:15 03/27/18 16:30 Normal Saline - IV 0 mls ASDIR [facility] Administration Cefazolin Sodium 1 gm/ 50 mls @ 100 mls/hr 03/27/18 18:00 03/28/18 10:36 Dextrose IVPB 100 mls/hr Q8H-IV [facility] Administration Insulin Aspart 1 vial 03/27/18 16:30 03/28/18 11:36 Novolog Vial Sliding Scale - SQ 2 units ACHS [facility] Administration Protocol Metoprolol Tartrate 25 mg 03/27/18 22:00 03/28/18 10:37 Lopressor - PO 25 mg BID [facility] Administration Ondansetron HCl 4 mg 03/27/18 15:04 Zofran Injection IVPUSH Q6H PRN NAUSEA AND/OR VOMITING Rosuvastatin Calcium 10 mg 03/27/18 22:00 03/27/18 22:23 Crestor - PO 10 mg HS [facility] Administration Tamsulosin HCl 0.4 mg 03/27/18 22:00 03/28/18 08:25 Flomax - PO 0.4 mg BID@0830,2200 [facility] Administration Torsemide 80 mg 03/28/18 10:00 03/28/18 10:37 Demadex - PO 80 mg DAILY [facility] Administration Zolpidem Tartrate 5 mg 03/27/18 16:05 03/27/18 22:22 Ambien - PO 5 mg HS PRN Administration SLEEP AID CBC, BMP 03/28/18 05:30 03/28/18 05:30 tele: sr echo with definity 07/2017 dilated LV, EF20-25%, with apical AK, HK of inf and lat [place], grade II diastolic dysfunction, cath 04/2017 MLM 80-90% with severe calc, pLAD [employer] fills with collat from LCX and RCA. EF 15% dyskinetic apex, s/p LM PCI a/p: Acute on chronic systolic HF s/p ICD - admitting symptoms concerning for CHF exacerbation, BNP 8000 - at home was on torsemide 80 mg BID - medication for HF limited due to low BP, had been on spironolactone and losartan at home however has been hypotensive here on diuretics and low dose metoprolol (was on 100 mg BID at home, later decreased to 50 mg BID and now on 25 mg BID) - continue torsemide 80 mg daily, metoprolol 25 mg BID, Cr stable - hold on ACEI/ARB for now as bp low - caution with ivfs given chf hx CAD s/p LM stent 04/2017 - cont statin, metoprolol. resume plavix post op when ok by pos troponin -borderline trop elevation with flat trend and nl ck, not c/w acs afib - restarted on metoprolol 25 mg BID with improved rates, up titrate as tolerated however has had low BP - resume xarelto when ok by PACO - may be cardiorenal, obstructive - improving with diuresis, curtis placement - renal ultrasound, no obstruction - Cr 1.4 in clinic 12/2017, stable now - appreciate nephrology, urology recs HTN - low BP as above HLD - cont statin DM - manage per primary
--- NOTE | 2018-03-28 15:46 | PN ---
Progress Note (short form) - Note Progress Note: Overall feeling better. No CP or SOB. No acute events overnight. Intake & Output 03/25/18 03/26/18 03/27/18 03/28/18 23:59 23:59 23:59 23:59 Intake Total 004 425 8134 1440 Output Total 2300 900 2850 3600 Balance -1400 -310 -725 -2160 Weight 176 lb 5.917 oz 174 lb 14.4 oz 174 lb 184 lb 2 oz Last Vital Signs Temp Pulse Resp BP Pulse Ox 98.1 F 92 H 18 103/71 100 03/28/18 14:00 03/28/18 14:00 03/28/18 14:00 03/28/18 14:00 03/28/18 09:00 Active Medications Acetaminophen (Ofirmev Injection -) 1,000 mg IVPB Q6H PRN PRN Reason: FEVER Last Admin: 03/27/18 22:22 Dose: 1,000 mg Allopurinol (Zyloprim -) 100 mg PO DAILY [facility] Last Admin: 03/28/18 10:36 Dose: 100 mg Cholecalciferol (Vitamin D3 -) 2,000 unit PO DAILY [facility] Last Admin: 03/28/18 10:36 Dose: 2,000 unit Docusate Sodium (Colace -) 100 mg PO Q12H PRN PRN Reason: CONSTIPATION Escitalopram Oxalate (Lexapro -) 10 mg PO DAILY [facility] Last Admin: 03/28/18 10:37 Dose: 10 mg Fentanyl (Sublimaze Injection -) 25 mcg IVPUSH [id number] PRN PRN Reason: PAIN-PACU ORDER X 4 DOSES ONLY Last Admin: 03/27/18 14:20 Dose: 25 mcg Finasteride (Proscar -) 5 mg PO DAILY [facility] Last Admin: 03/28/18 10:37 Dose: 5 mg Glipizide (Glucotrol -) 2.5 mg PO DAILY@0700 [facility] Last Admin: 03/28/18 06:18 Dose: 2.5 mg Sodium Chloride (Normal Saline -) 1,000 mls @ 75 mls/hr IV ASDIR [facility] Last Admin: 03/27/18 16:30 Dose: 0 mls Cefazolin Sodium 1 gm/ (Dextrose) 50 mls @ 100 mls/hr IVPB Q8H-IV [facility] Last Admin: 03/28/18 10:36 Dose: 100 mls/hr Insulin Aspart (Novolog Vial Sliding Scale -) 1 vial SQ ACHS [facility]; Protocol Last Admin: 03/28/18 11:36 Dose: 2 units Metoprolol Tartrate (Lopressor -) 25 mg PO BID [facility] Last Admin: 03/28/18 10:37 Dose: 25 mg Ondansetron HCl (Zofran Injection) 4 mg IVPUSH Q6H PRN PRN Reason: NAUSEA AND/OR VOMITING Rosuvastatin Calcium (Crestor -) 10 mg PO HS [facility] Last Admin: 03/27/18 22:23 Dose: 10 mg Tamsulosin HCl (Flomax -) 0.4 mg PO BID@0830,2200 [facility] Last Admin: 03/28/18 08:25 Dose: 0.4 mg Torsemide (Demadex -) 80 mg PO DAILY [facility] Last Admin: 03/28/18 10:37 Dose: 80 mg Zolpidem Tartrate (Ambien -) 5 mg PO HS PRN PRN Reason: SLEEP AID Last Admin: 03/27/18 22:22 Dose: 5 mg General: awake, alert, NAD HEENT: (-) Pallor CV: RRR Pulm: scattered rhonchi Abd: soft, ND, NT Ext: (-) edema Neuro: Non-focal Laboratory Results - last 24 hr 03/27/18 03/27/18 03/28/18 17:03 21:23 05:30 WBC 11.6 H RBC 4.34 Hgb 11.8 Hct 37.4 MCV 86.2 MCH 27.2 MCHC 31.6 L RDW 16.8 H Plt Count 220 MPV 7.7 Sodium Potassium Chloride Carbon Dioxide Anion Gap BUN Creatinine Creat Clearance w eGFR POC Glucometer 144.21251 264.87001 Random Glucose Calcium Total Bilirubin AST ALT Alkaline Phosphatase Total Protein Albumin 03/28/18 03/28/18 03/28/18 05:30 05:38 11:35 WBC RBC Hgb Hct MCV MCH MCHC RDW Plt Count MPV Sodium 137 Potassium 4.1 Chloride 100 Carbon Dioxide 28 Anion Gap 9 BUN 55 H Creatinine 1.6 H Creat Clearance w eGFR 42.24 POC Glucometer 157.10159 [phone] Random Glucose 136 H Calcium 8.4 L Total Bilirubin 0.6 AST 18 ALT 15 Alkaline Phosphatase 54 Total Protein 6.2 L Albumin 2.9 L IMP: Acute on Chronic Systolic Heart Failure Atrial Fibrillation CAD +Troponins likely Demand Ischemia Acute on Chronic Renal Failure HTN DM Hyperlipidemia Hematuria - Demadex as tolerated - monitor urine output, creatinine - daily weights - Incentive spirometry - rate controlled with Beta Mili - O2 to maintain saturation Dr Dalton
--- NOTE | 2018-03-28 17:41 | PN ---
Progress Note, Physician History of Present Illness: Pt is POD#1 Pt w/o CP, palpitations, abd pain, N, V. Pt is aking for Allopurinol to be available as needed at night Holt is present, bloody urine drainage - Current Medication List Current Medications: Active Medications Acetaminophen (Ofirmev Injection -) 1,000 mg IVPB Q6H PRN PRN Reason: FEVER Last Admin: 03/27/18 22:22 Dose: 1,000 mg Allopurinol (Zyloprim -) 100 mg PO DAILY [facility] Last Admin: 03/28/18 10:36 Dose: 100 mg Cholecalciferol (Vitamin D3 -) 2,000 unit PO DAILY [facility] Last Admin: 03/28/18 10:36 Dose: 2,000 unit Docusate Sodium (Colace -) 100 mg PO Q12H PRN PRN Reason: CONSTIPATION Escitalopram Oxalate (Lexapro -) 10 mg PO DAILY [facility] Last Admin: 03/28/18 10:37 Dose: 10 mg Fentanyl (Sublimaze Injection -) 25 mcg IVPUSH [id number] PRN PRN Reason: PAIN-PACU ORDER X 4 DOSES ONLY Last Admin: 03/27/18 14:20 Dose: 25 mcg Finasteride (Proscar -) 5 mg PO DAILY [facility] Last Admin: 03/28/18 10:37 Dose: 5 mg Glipizide (Glucotrol -) 2.5 mg PO DAILY@0700 [facility] Last Admin: 03/28/18 06:18 Dose: 2.5 mg Sodium Chloride (Normal Saline -) 1,000 mls @ 75 mls/hr IV ASDIR [facility] Last Admin: 03/27/18 16:30 Dose: 0 mls Cefazolin Sodium 1 gm/ (Dextrose) 50 mls @ 100 mls/hr IVPB Q8H-IV [facility] Last Admin: 03/28/18 10:36 Dose: 100 mls/hr Insulin Aspart (Novolog Vial Sliding Scale -) 1 vial SQ ACHS [facility]; Protocol Last Admin: 03/28/18 16:36 Dose: Not Given Metoprolol Tartrate (Lopressor -) 25 mg PO BID [facility] Last Admin: 03/28/18 10:37 Dose: 25 mg Ondansetron HCl (Zofran Injection) 4 mg IVPUSH Q6H PRN PRN Reason: NAUSEA AND/OR VOMITING Rosuvastatin Calcium (Crestor -) 10 mg PO HS [facility] Last Admin: 03/27/18 22:23 Dose: 10 mg Tamsulosin HCl (Flomax -) 0.4 mg PO BID@0830,2200 [facility] Last Admin: 03/28/18 08:25 Dose: 0.4 mg Torsemide (Demadex -) 80 mg PO DAILY [facility] Last Admin: 03/28/18 10:37 Dose: 80 mg Zolpidem Tartrate (Ambien -) 5 mg PO HS PRN PRN Reason: SLEEP AID Last Admin: 03/27/18 22:22 Dose: 5 mg - Objective Vital Signs: Vital Signs Temperature 98.1 F 03/28/18 14:00 Pulse Rate 92 H 03/28/18 14:00 Respiratory Rate 18 03/28/18 14:00 Blood Pressure 103/71 03/28/18 14:00 O2 Sat by Pulse Oximetry (%) 100 03/28/18 09:00 Constitutional: Yes: No Distress, Calm Cardiovascular: Yes: Regular Rate and Rhythm, S1, S2 Respiratory: Yes: Regular, CTA Bilaterally. No: Rales Gastrointestinal: Yes: Normal Bowel Sounds, Soft. No: Tenderness Edema: No Neurological: Yes: Alert, Oriented Labs: CBC, BMP 03/28/18 05:30 03/28/18 05:30 Problem List - Problems (1) Acute systolic CHF (congestive heart failure) Code(s): I50.21 - ACUTE SYSTOLIC (CONGESTIVE) HEART FAILURE (2) Elevated troponin I level Code(s): R74.8 - ABNORMAL LEVELS OF OTHER SERUM ENZYMES (3) Hypotension Code(s): I95.9 - HYPOTENSION, UNSPECIFIED (4) PACO (acute kidney injury) Code(s): N17.9 - ACUTE KIDNEY FAILURE, UNSPECIFIED (5) CRF (chronic renal failure) Code(s): N18.9 - CHRONIC KIDNEY DISEASE, UNSPECIFIED (6) Hypercholesteremia Code(s): E78.00 - PURE HYPERCHOLESTEROLEMIA, UNSPECIFIED (7) Hypertension Code(s): I10 - ESSENTIAL (PRIMARY) HYPERTENSION (8) Pleural effusion Code(s): J90 - PLEURAL EFFUSION, NOT ELSEWHERE CLASSIFIED (9) CAD (coronary artery disease) Code(s): I25.10 - ATHSCL HEART DISEASE OF [place] CORONARY ARTERY W/O ANG PCTRS (10) AICD (automatic cardioverter/defibrillator) present Code(s): Z95.810 - PRESENCE OF AUTOMATIC (IMPLANTABLE) CARDIAC DEFIBRILLATOR (11) PAF (paroxysmal atrial fibrillation) Code(s): I48.0 - PAROXYSMAL ATRIAL FIBRILLATION (12) Urinary retention Code(s): R33.9 - RETENTION OF URINE, UNSPECIFIED (13) Hematuria Code(s): R31.9 - HEMATURIA, UNSPECIFIED Assessment/Plan S/p TUVP, POD#1; off CBI. Restart Xarelto and Plavix when OK with Admitted to ICU, transferred to Telemetry. Serial CE -stable; CE were found to be elevated in the settings of PACO and CHF ( probable demand ischemia) ICU/CCM, Cardio, Renal, consults are appreciated. Home med on hold at admission: Losartan, Spironolactone, Torsemide, Metformin. BGM with Novolog coverage. Pt on Glipizide Pt was switched to PO diuretic. Pt is tolerating Metoprolol; pt's blood presure is improved. Pt would benefit of ACEI or ARB; can be restarted as tolerated AM labs. Pt's case was d/w pt's nurse.
[2018-03-28] MEDS: SODIUM CHLORIDE 1,000 ML IV SCH (17:52)
[2018-03-28] MEDS ORDERED: INSULIN (NOVOLOG) ASPART 100 UNITS/ML 10ML VIAL ONE (21:15)
[2018-03-28] MEDS: ROSUVASTATIN CA 10 MG TABLET (FP) PO SCH (21:16)
[2018-03-28] MEDS: ZOLPIDEM TARTRATE 5 MG TABLET PO PRN (21:21)
[2018-03-28] MEDS: ALLOPURINOL 100 MG TABLET (FP) PO PRN (21:27)
[2018-03-29] MEDS ORDERED: ceFAZolin SODIUM 1 GM VIAL ONE ×4 (00:47→23:15)
[2018-03-29] MEDS ORDERED: DEXTROSE 5%-WATER - 50 ML IVPB ONE ×4 (00:47→23:16)
[2018-03-29] MEDS: CEFAZOLIN 1 GM in DEXTROSE 5%-WATER - 50 ML IVPB SCH ×3 (01:15→17:42)
[2018-03-29] MEDS: ACETAMINOPHEN 1000 MG/100 ML VIAL (NON FORMULARY) IVPB PRN (03:34)
[2018-03-29] MEDS: INSULIN SLIDING SCALE (NOVOLOG) 1 VIAL SQ SCH ×3 (06:18→16:43)
[2018-03-29] MEDS: glipiZIDE 5 MG TABLET (FP) PO SCH (06:19)
[2018-03-29 06:25] LABS: HEMATOCRIT 38.8 % (35.4-49); HEMOGLOBIN 12.3 GM/dL (11.7-16.9); MCH 27.2 pg (25.7-33.7); MCHC 31.6 g/dl (32.0-35.9); MEAN CELL VOLUME 86.1 fl (80-96); MEAN PLT VOLUME 7.8 fl (7.5-11.1); PLATELET COUNT 223 K/MM3 (134-434); RBC 4.51 M/mm3 (4.00-5.60); RDW 17.4 % (11.9-15.9); WHITE BLOOD COUNT 11.7 K/mm3 (4.0-10.0)
[2018-03-29 06:43] LABS: ALBUMIN 3.1 g/dl (3.4-5.0); ANION GAP 11 MMOL/L (8-16); BLOOD UREA NITROGEN 42 mg/dL (7-18); CALCIUM 8.7 mg/dL (8.5-10.1); CHLORIDE 102 mmol/L (98-107); CO2 26 mmol/L (21-32); GLUCOSE,RANDOM 159 mg/dL (74-106); POTASSIUM 4.3 mmol/L (3.5-5.1); SODIUM 139 mmol/L (136-145)
[2018-03-29 06:48] LABS: ALK PHOS 57 U/L (45-117); BILIRUBIN,TOTAL 0.6 mg/dL (0.2-1.0); CREATININE 1.4 mg/dL (0.55-1.3); SGOT/AST 10 U/L (15-37); SGPT/ALT 12 U/L (13-61); TOT PROT 6.3 g/dl (6.4-8.2)
[2018-03-29] MEDS: TORSEMIDE 20 MG TABLET (FP) PO SCH (10:25)
[2018-03-29] MEDS: ESCITALOPRAM OXALATE 10 MG TABLET (FP) PO SCH (10:25)
[2018-03-29] MEDS: METOPROLOL TARTRATE 25 MG TABLET (FP) PO SCH ×2 (10:25→23:00)
[2018-03-29] MEDS: FINASTERIDE 5 MG TABLET (FP) PO SCH (10:25)
[2018-03-29] MEDS: ALLOPURINOL 100 MG TABLET (FP) PO SCH (10:25)
[2018-03-29] MEDS: TAMSULOSIN HCL 0.4 MG CAP PO SCH ×2 (10:25→23:00)
[2018-03-29] MEDS: CHOLECALCIFEROL (VITAMIN D3) 1,000 UNIT TABLET (FP) PO SCH (10:26)
--- NOTE | 2018-03-29 10:57 | PN ---
Progress Note (short form) - Note Progress Note: s: no cp palps dizzy. tired this AM, mild sob. o: Vital Signs Period Temp Pulse Resp BP Sys/Eisenberg Pulse Ox Last 24 Hr 98.0 F-98.1 F 92-100 18-20 92-103/60-71 94 Constitutional: Yes: Well Nourished, No Distress, Calm Eyes: Yes: Conjunctiva Clear Neck: Yes: Supple, Trachea Midline Respiratory: Yes: cta bl nl eff Gastrointestinal: Yes: Normal Bowel Sounds, Soft Cardiovascular: Yes: Regular Rate and Rhythm JVD: Yes Heart Sounds: Yes: S1, S2 Edema: Yes Edema: no Psychiatric: Yes: Alert, Oriented no jaundice diaphoresis Current Medications Generic Name Dose Route Start Last Admin Trade Name Freq PRN Reason Stop Dose Admin Acetaminophen 1,000 mg 03/27/18 15:04 03/29/18 03:34 Ofirmev Injection - IVPB 1,000 mg Q6H PRN Administration FEVER Allopurinol 100 mg 03/28/18 10:00 03/29/18 10:25 Zyloprim - PO 100 mg DAILY [facility] Administration Allopurinol 100 mg 03/28/18 17:57 03/28/18 21:27 Zyloprim - PO 100 mg HS PRN Administration PAIN Cholecalciferol 2,000 unit 03/28/18 10:00 03/29/18 10:26 Vitamin D3 - PO 2,000 unit DAILY [facility] Administration Docusate Sodium 100 mg 03/27/18 16:05 Colace - PO Q12H PRN CONSTIPATION Escitalopram Oxalate 10 mg 03/28/18 10:00 03/29/18 10:25 Lexapro - PO 10 mg DAILY [facility] Administration Fentanyl 25 mcg 03/27/18 15:04 03/27/18 14:20 Sublimaze Injection - IVPUSH 25 mcg [id number] PRN Administration PAIN-PACU ORDER X 4 DOSES ONLY Finasteride 5 mg 03/28/18 10:00 03/29/18 10:25 Proscar - PO 5 mg DAILY [facility] Administration Glipizide 2.5 mg 03/28/18 07:00 03/29/18 06:19 Glucotrol - PO 2.5 mg DAILY@0700 [facility] Administration Cefazolin Sodium 1 gm/ 50 mls @ 100 mls/hr 03/27/18 18:00 03/29/18 10:26 Dextrose IVPB 100 mls/hr Q8H-IV [facility] Administration Insulin Aspart 1 vial 03/27/18 16:30 03/29/18 06:18 Novolog Vial Sliding Scale - SQ Not Given ACHS [facility] Protocol Metoprolol Tartrate 25 mg 03/27/18 22:00 03/29/18 10:25 Lopressor - PO 25 mg BID [facility] Administration Ondansetron HCl 4 mg 03/27/18 15:04 Zofran Injection IVPUSH Q6H PRN NAUSEA AND/OR VOMITING Rosuvastatin Calcium 10 mg 03/27/18 22:00 03/28/18 21:16 Crestor - PO 10 mg HS [facility] Administration Tamsulosin HCl 0.4 mg 03/27/18 22:00 03/29/18 10:25 Flomax - PO 0.4 mg BID@0830,2200 [facility] Administration Torsemide 80 mg 03/28/18 10:00 03/29/18 10:25 Demadex - PO 80 mg DAILY [facility] Administration Zolpidem Tartrate 5 mg 03/27/18 16:05 03/28/18 21:21 Ambien - PO 5 mg HS PRN Administration SLEEP AID CBC, BMP 03/29/18 06:00 03/29/18 06:00 tele: sr echo with definity 07/2017 dilated LV, EF20-25%, with apical AK, HK of inf and lat [place], grade II diastolic dysfunction, cath 04/2017 MLM 80-90% with severe calc, pLAD [employer] fills with collat from LCX and RCA. EF 15% dyskinetic apex, s/p LM PCI a/p: Acute on chronic systolic HF s/p ICD - admitting symptoms concerning for CHF exacerbation, BNP 8000 - at home was on torsemide 80 mg BID - medication for HF limited due to low BP, had been on spironolactone and losartan at home however has been hypotensive here on diuretics and low dose metoprolol (was on 100 mg BID at home, later decreased to 50 mg BID and now on 25 mg BID) - continue torsemide 80 mg daily, metoprolol 25 mg BID, Cr stable - hold on ACEI/ARB for now as bp low CAD s/p LM stent 04/2017 - cont statin, metoprolol. resume plavix post op when ok by pos troponin -borderline trop elevation with flat trend and nl ck, not c/w acs afib - restarted on metoprolol 25 mg BID with improved rates, up titrate as tolerated however has had low BP - resume xarelto when ok by PACO - may be cardiorenal, obstructive - improving with diuresis, curtis placement - renal ultrasound, no obstruction - Cr 1.4 in clinic 12/2017, stable now - appreciate nephrology, urology recs HTN - low BP as above HLD - cont statin
--- NOTE | 2018-03-29 12:28 | PN ---
Progress Note, Physician History of Present Illness: PULMONARY ALERT,OOB-CHAIR,COMFORTABLE AT REST,-CP,SOB - Current Medication List Current Medications: Active Medications Acetaminophen (Ofirmev Injection -) 1,000 mg IVPB Q6H PRN PRN Reason: FEVER Last Admin: 03/29/18 03:34 Dose: 1,000 mg Allopurinol (Zyloprim -) 100 mg PO DAILY [facility] Last Admin: 03/29/18 10:25 Dose: 100 mg Allopurinol (Zyloprim -) 100 mg PO HS PRN PRN Reason: PAIN Last Admin: 03/28/18 21:27 Dose: 100 mg Cholecalciferol (Vitamin D3 -) 2,000 unit PO DAILY [facility] Last Admin: 03/29/18 10:26 Dose: 2,000 unit Docusate Sodium (Colace -) 100 mg PO Q12H PRN PRN Reason: CONSTIPATION Escitalopram Oxalate (Lexapro -) 10 mg PO DAILY [facility] Last Admin: 03/29/18 10:25 Dose: 10 mg Fentanyl (Sublimaze Injection -) 25 mcg IVPUSH [id number] PRN PRN Reason: PAIN-PACU ORDER X 4 DOSES ONLY Last Admin: 03/27/18 14:20 Dose: 25 mcg Finasteride (Proscar -) 5 mg PO DAILY [facility] Last Admin: 03/29/18 10:25 Dose: 5 mg Glipizide (Glucotrol -) 2.5 mg PO DAILY@0700 [facility] Last Admin: 03/29/18 06:19 Dose: 2.5 mg Cefazolin Sodium 1 gm/ (Dextrose) 50 mls @ 100 mls/hr IVPB Q8H-IV [facility] Last Admin: 03/29/18 10:26 Dose: 100 mls/hr Insulin Aspart (Novolog Vial Sliding Scale -) 1 vial SQ ACHS [facility]; Protocol Last Admin: 03/29/18 11:55 Dose: 2 units Metoprolol Tartrate (Lopressor -) 25 mg PO BID [facility] Last Admin: 03/29/18 10:25 Dose: 25 mg Ondansetron HCl (Zofran Injection) 4 mg IVPUSH Q6H PRN PRN Reason: NAUSEA AND/OR VOMITING Rosuvastatin Calcium (Crestor -) 10 mg PO HS [facility] Last Admin: 03/28/18 21:16 Dose: 10 mg Tamsulosin HCl (Flomax -) 0.4 mg PO BID@0830,2200 [facility] Last Admin: 03/29/18 10:25 Dose: 0.4 mg Torsemide (Demadex -) 80 mg PO DAILY [facility] Last Admin: 03/29/18 10:25 Dose: 80 mg Zolpidem Tartrate (Ambien -) 5 mg PO HS PRN PRN Reason: SLEEP AID Last Admin: 03/28/18 21:21 Dose: 5 mg - Objective Vital Signs: Vital Signs Temperature 98.0 F 03/29/18 06:00 Pulse Rate 100 H 03/29/18 06:00 Respiratory Rate 20 03/29/18 06:00 Blood Pressure 101/68 03/29/18 06:00 O2 Sat by Pulse Oximetry (%) 94 L 03/28/18 21:00 Constitutional: Yes: Well Nourished, Calm Eyes: Yes: WNL HENT: Yes: WNL Neck: Yes: WNL Cardiovascular: Yes: Pulse Irregular, S1, S2 Respiratory: Yes: Rales (FEW BIBASILAR CRACKLES) Gastrointestinal: Yes: Normal Bowel Sounds, Soft Extremities: Yes: WNL Edema: No Labs: CBC, BMP 03/29/18 06:00 03/29/18 06:00 Problem List - Problems (1) AICD (automatic cardioverter/defibrillator) present Code(s): Z95.810 - PRESENCE OF AUTOMATIC (IMPLANTABLE) CARDIAC DEFIBRILLATOR (2) PACO (acute kidney injury) Code(s): N17.9 - ACUTE KIDNEY FAILURE, UNSPECIFIED (3) Acute systolic CHF (congestive heart failure) Code(s): I50.21 - ACUTE SYSTOLIC (CONGESTIVE) HEART FAILURE (4) CAD (coronary artery disease) Code(s): I25.10 - ATHSCL HEART DISEASE OF [place] CORONARY ARTERY W/O ANG PCTRS (5) Diabetes mellitus Code(s): E11.9 - TYPE 2 DIABETES MELLITUS WITHOUT COMPLICATIONS (6) Hypercholesteremia Code(s): E78.00 - PURE HYPERCHOLESTEROLEMIA, UNSPECIFIED (7) Elevated troponin I level Code(s): R74.8 - ABNORMAL LEVELS OF OTHER SERUM ENZYMES (8) Hematuria Code(s): R31.9 - HEMATURIA, UNSPECIFIED (9) Hypertension Code(s): I10 - ESSENTIAL (PRIMARY) HYPERTENSION Assessment/Plan IMP: Acute on Chronic Systolic Heart Failure Atrial Fibrillation CAD +Troponins likely Demand Ischemia Acute on Chronic Renal Failure HTN DM Hyperlipidemia Hematuria - Demadex - monitor urine output, creatinine - daily weights - Incentive spirometry - rate controlled with Beta Mili - O2 to maintain saturation -chest x-ray DR CÁRDENAS
--- NOTE | 2018-03-29 12:43 | PN ---
Progress Note (short form) - Note Progress Note: Renal follow up for PACO Pt seen and examined at the bedside awake and alert no acute complaints s/p TURP/Cysto yesterday curtis in place today making urine has some sob this am, IVF were discontinued and oral torsemide given feels better now Vital Signs Temperature 98.0 F 03/29/18 06:00 Pulse Rate 100 H 03/29/18 06:00 Respiratory Rate 20 03/29/18 09:00 Blood Pressure 101/68 03/29/18 06:00 O2 Sat by Pulse Oximetry (%) 94 L 03/29/18 09:00 Intake & Output 03/26/18 03/27/18 03/28/18 03/29/18 23:59 23:59 23:59 23:59 Intake Total 590 2125 1440 210 Output Total 900 2850 4600 450 Balance -310 -725 -3160 -240 Weight 79.333 kg 78.925 kg 83.518 kg 82.01 kg NAD awake and alert RRR, No M/R dec BS at lung bases soft NT/ND no Le edema CBC, BMP 03/29/18 06:00 03/29/18 06:00 Current Medications Acetaminophen (Ofirmev Injection -) 1,000 mg IVPB Q6H PRN PRN Reason: FEVER Last Admin: 03/29/18 03:34 Dose: 1,000 mg Allopurinol (Zyloprim -) 100 mg PO DAILY [facility] Last Admin: 03/29/18 10:25 Dose: 100 mg Allopurinol (Zyloprim -) 100 mg PO HS PRN PRN Reason: PAIN Last Admin: 03/28/18 21:27 Dose: 100 mg Cholecalciferol (Vitamin D3 -) 2,000 unit PO DAILY [facility] Last Admin: 03/29/18 10:26 Dose: 2,000 unit Docusate Sodium (Colace -) 100 mg PO Q12H PRN PRN Reason: CONSTIPATION Escitalopram Oxalate (Lexapro -) 10 mg PO DAILY [facility] Last Admin: 03/29/18 10:25 Dose: 10 mg Fentanyl (Sublimaze Injection -) 25 mcg IVPUSH [id number] PRN PRN Reason: PAIN-PACU ORDER X 4 DOSES ONLY Last Admin: 03/27/18 14:20 Dose: 25 mcg Finasteride (Proscar -) 5 mg PO DAILY [facility] Last Admin: 03/29/18 10:25 Dose: 5 mg Glipizide (Glucotrol -) 2.5 mg PO DAILY@0700 [facility] Last Admin: 03/29/18 06:19 Dose: 2.5 mg Cefazolin Sodium 1 gm/ (Dextrose) 50 mls @ 100 mls/hr IVPB Q8H-IV [facility] Last Admin: 03/29/18 10:26 Dose: 100 mls/hr Insulin Aspart (Novolog Vial Sliding Scale -) 1 vial SQ ACHS [facility]; Protocol Last Admin: 03/29/18 11:55 Dose: 2 units Metoprolol Tartrate (Lopressor -) 25 mg PO BID [facility] Last Admin: 03/29/18 10:25 Dose: 25 mg Ondansetron HCl (Zofran Injection) 4 mg IVPUSH Q6H PRN PRN Reason: NAUSEA AND/OR VOMITING Rosuvastatin Calcium (Crestor -) 10 mg PO HS [facility] Last Admin: 03/28/18 21:16 Dose: 10 mg Tamsulosin HCl (Flomax -) 0.4 mg PO BID@0830,2200 [facility] Last Admin: 03/29/18 10:25 Dose: 0.4 mg Torsemide (Demadex -) 80 mg PO DAILY [facility] Last Admin: 03/29/18 10:25 Dose: 80 mg Zolpidem Tartrate (Ambien -) 5 mg PO HS PRN PRN Reason: SLEEP AID Last Admin: 03/28/18 21:21 Dose: 5 mg 78 year old gentleman with Hx of CHF, Hypertension, HLD, DM who presented with SOB and admitted for CHF exacerbation with PACO. #PACO on ? 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
[2018-03-29] MEDS ORDERED: PT OWN MED DRAWER 7, Y5N ONE (16:03)
--- NOTE | 2018-03-29 18:11 | PN ---
Progress Note, Physician History of Present Illness: Pt is POD#2. Pt feels a little SOB (since morning) w/o oxygen . Pt w/o CP, palpitations, abd pain, N, V. Holt is present, no blood noticed. Pt asked me to talk today with his daughter, Mindy Flannery, about his condition. Per pt's nurse, Erinn, pt's O2 sat on RA was 87% (measured couple of times); On 2L/min oxygen via [place], O2 sat improved to 94% - Current Medication List Current Medications: Active Medications Acetaminophen (Ofirmev Injection -) 1,000 mg IVPB Q6H PRN PRN Reason: FEVER Last Admin: 03/29/18 03:34 Dose: 1,000 mg Allopurinol (Zyloprim -) 100 mg PO DAILY [facility] Last Admin: 03/29/18 10:25 Dose: 100 mg Allopurinol (Zyloprim -) 100 mg PO HS PRN PRN Reason: PAIN Last Admin: 03/28/18 21:27 Dose: 100 mg Cholecalciferol (Vitamin D3 -) 2,000 unit PO DAILY [facility] Last Admin: 03/29/18 10:26 Dose: 2,000 unit Docusate Sodium (Colace -) 100 mg PO Q12H PRN PRN Reason: CONSTIPATION Escitalopram Oxalate (Lexapro -) 10 mg PO DAILY [facility] Last Admin: 03/29/18 10:25 Dose: 10 mg Fentanyl (Sublimaze Injection -) 25 mcg IVPUSH [id number] PRN PRN Reason: PAIN-PACU ORDER X 4 DOSES ONLY Last Admin: 03/27/18 14:20 Dose: 25 mcg Finasteride (Proscar -) 5 mg PO DAILY [facility] Last Admin: 03/29/18 10:25 Dose: 5 mg Glipizide (Glucotrol -) 2.5 mg PO DAILY@0700 [facility] Last Admin: 03/29/18 06:19 Dose: 2.5 mg Cefazolin Sodium 1 gm/ (Dextrose) 50 mls @ 100 mls/hr IVPB Q8H-IV [facility] Last Admin: 03/29/18 17:42 Dose: 100 mls/hr Insulin Aspart (Novolog Vial Sliding Scale -) 1 vial SQ ACHS [facility]; Protocol Last Admin: 03/29/18 16:43 Dose: Not Given Metoprolol Tartrate (Lopressor -) 25 mg PO BID [facility] Last Admin: 03/29/18 10:25 Dose: 25 mg Ondansetron HCl (Zofran Injection) 4 mg IVPUSH Q6H PRN PRN Reason: NAUSEA AND/OR VOMITING Rosuvastatin Calcium (Crestor -) 10 mg PO HS [facility] Last Admin: 03/28/18 21:16 Dose: 10 mg Tamsulosin HCl (Flomax -) 0.4 mg PO BID@0830,2200 [facility] Last Admin: 03/29/18 10:25 Dose: 0.4 mg Torsemide (Demadex -) 80 mg PO DAILY [facility] Last Admin: 03/29/18 10:25 Dose: 80 mg Zolpidem Tartrate (Ambien -) 5 mg PO HS PRN PRN Reason: SLEEP AID Last Admin: 03/28/18 21:21 Dose: 5 mg - Objective Vital Signs: Vital Signs Temperature 97.8 F 03/29/18 14:00 Pulse Rate 92 H 03/29/18 14:00 Respiratory Rate 20 03/29/18 14:00 Blood Pressure 112/63 03/29/18 14:00 O2 Sat by Pulse Oximetry (%) 94 L 03/29/18 09:00 Constitutional: Yes: No Distress, Calm Cardiovascular: Yes: Pulse Irregular, S1, S2 Respiratory: Yes: Regular, CTA Bilaterally (except crkles at bases) Gastrointestinal: Yes: Normal Bowel Sounds, Soft. No: Tenderness Edema: No Labs: CBC, BMP 03/29/18 06:00 03/29/18 06:00 Problem List - Problems (1) Acute systolic CHF (congestive heart failure) Code(s): I50.21 - ACUTE SYSTOLIC (CONGESTIVE) HEART FAILURE (2) Elevated troponin I level Code(s): R74.8 - ABNORMAL LEVELS OF OTHER SERUM ENZYMES (3) Hypotension Code(s): I95.9 - HYPOTENSION, UNSPECIFIED (4) PACO (acute kidney injury) Code(s): N17.9 - ACUTE KIDNEY FAILURE, UNSPECIFIED (5) CRF (chronic renal failure) Code(s): N18.9 - CHRONIC KIDNEY DISEASE, UNSPECIFIED (6) Hypercholesteremia Code(s): E78.00 - PURE HYPERCHOLESTEROLEMIA, UNSPECIFIED (7) Hypertension Code(s): I10 - ESSENTIAL (PRIMARY) HYPERTENSION (8) Pleural effusion Code(s): J90 - PLEURAL EFFUSION, NOT ELSEWHERE CLASSIFIED (9) CAD (coronary artery disease) Code(s): I25.10 - ATHSCL HEART DISEASE OF [place] CORONARY ARTERY W/O ANG PCTRS (10) AICD (automatic cardioverter/defibrillator) present Code(s): Z95.810 - PRESENCE OF AUTOMATIC (IMPLANTABLE) CARDIAC DEFIBRILLATOR (11) PAF (paroxysmal atrial fibrillation) Code(s): I48.0 - PAROXYSMAL ATRIAL FIBRILLATION (12) Urinary retention Code(s): R33.9 - RETENTION OF URINE, UNSPECIFIED (13) Hematuria Code(s): R31.9 - HEMATURIA, UNSPECIFIED Assessment/Plan S/p TUVP, POD#2; off CBI. I spoke with Dr. Dial (), pt's condition was reviewed, including Holt drainage; he considers that we can restart Xarelto today and Plavix in AM. I ordered Xarelto and Plavix for patient. Pulmonary congestion worsening. To give Lasix (40 mg IVP) tonight ; continue Torsemide in AM. Admitted to ICU, transferred to Telemetry. Serial CE -stable; CE were found to be elevated in the settings of PACO and CHF ( probable demand ischemia) ICU/CCM, Cardio, Renal, consults are appreciated. Home med on hold at admission: Losartan, Spironolactone, Torsemide, Metformin. BGM with Novolog coverage. Pt on Glipizide Pt was switched to PO diuretic. Pt is tolerating Metoprolol; pt's blood presure is improved. Pt would benefit of ACEI or ARB; can be restarted as tolerated. AM labs. Pt's case was d/w pt's nurse. I called and spoke with pt's daughter, pt's condition and treatments were reviewed; all questions were answered. Time spent for managing pt's care: over 45 minutes.
[2018-03-29] MEDS ORDERED: FUROSEMIDE 40 MG TABLET (FP) PO ONE (18:27)
[2018-03-29] MEDS ORDERED: FUROSEMIDE 40 MG/4 ML INJECTABLE VIAL IVPUSH ONE (18:43)
[2018-03-29] MEDS: ROSUVASTATIN CA 10 MG TABLET (FP) PO SCH (23:00)
[2018-03-29] MEDS: ACETAMINOPHEN 325 MG TABLET (FP) PO PRN (23:19)
[2018-03-29] MEDS: ALLOPURINOL 100 MG TABLET (FP) PO PRN (23:21)
[2018-03-29] MEDS: ZOLPIDEM TARTRATE 5 MG TABLET PO PRN (23:44)
[2018-03-30] MEDS: CEFAZOLIN 1 GM in DEXTROSE 5%-WATER - 50 ML IVPB SCH ×3 (03:00→17:50)
[2018-03-30] MEDS: RIVAROXABAN 15 MG TABLET PO SCH ×2 (04:00→17:50)
[2018-03-30] MEDS: glipiZIDE 5 MG TABLET (FP) PO SCH (06:08)
[2018-03-30] MEDS: INSULIN SLIDING SCALE (NOVOLOG) 1 VIAL SQ SCH ×5 (06:11→21:30)
[2018-03-30 07:25] LABS: BASO % 0.6 % (0-2.0); EOS % 1.9 % (0-4.5); HEMATOCRIT 37.6 % (35.4-49); LYMPH % 15.7 % (8-40); MCH 27.3 pg (25.7-33.7); MCHC 31.8 g/dl (32.0-35.9); MEAN CELL VOLUME 85.7 fl (80-96); MONO % 8.5 % (3.8-10.2); NEUT % 73.3 % (42.8-82.8); PLATELET COUNT 227 K/MM3 (134-434); RBC 4.39 M/mm3 (4.00-5.60); RDW 17.3 % (11.9-15.9); WHITE BLOOD COUNT 9.5 K/mm3 (4.0-10.0)
[2018-03-30 07:57] LABS: ANION GAP 9 MMOL/L (8-16); BLOOD UREA NITROGEN 43 mg/dL (7-18); CALCIUM 8.5 mg/dL (8.5-10.1); CHLORIDE 100 mmol/L (98-107); CO2 28 mmol/L (21-32); CREATININE 1.4 mg/dL (0.55-1.3); GLUCOSE,RANDOM 134 mg/dL (74-106); MAGNESIUM 2.3 mg/dL (1.8-2.4); POTASSIUM 4.1 mmol/L (3.5-5.1); SODIUM 137 mmol/L (136-145)
[2018-03-30] MEDS ORDERED: DEXTROSE 5%-WATER - 50 ML IVPB ONE ×3 (09:05→23:37)
[2018-03-30] MEDS ORDERED: ceFAZolin SODIUM 1 GM VIAL ONE ×3 (09:05→23:37)
--- NOTE | 2018-03-30 09:25 | PN ---
Progress Note, Physician Chief Complaint: sob History of Present Illness: very sob with little activity today. says no sob at baseline at home, until shortly prior to admit. says breathing got worse here since given IVF for prostate procedure. visibly breathless trying to get into bed. no leg swelling, cp, palpit ex cigs - Current Medication List Current Medications: Active Medications Acetaminophen (Tylenol -) 650 mg PO Q6H PRN PRN Reason: FEVER Last Admin: 03/29/18 23:19 Dose: 650 mg Allopurinol (Zyloprim -) 100 mg PO DAILY [facility] Last Admin: 03/29/18 10:25 Dose: 100 mg Allopurinol (Zyloprim -) 100 mg PO HS PRN PRN Reason: PAIN Last Admin: 03/29/18 23:21 Dose: 100 mg Cholecalciferol (Vitamin D3 -) 2,000 unit PO DAILY [facility] Last Admin: 03/29/18 10:26 Dose: 2,000 unit Clopidogrel Bisulfate (Plavix -) 75 mg PO DAILY [facility] Docusate Sodium (Colace -) 100 mg PO Q12H PRN PRN Reason: CONSTIPATION Last Admin: 03/29/18 23:21 Dose: 100 mg Escitalopram Oxalate (Lexapro -) 10 mg PO DAILY [facility] Last Admin: 03/29/18 10:25 Dose: 10 mg Fentanyl (Sublimaze Injection -) 25 mcg IVPUSH [id number] PRN PRN Reason: PAIN-PACU ORDER X 4 DOSES ONLY Last Admin: 03/27/18 14:20 Dose: 25 mcg Finasteride (Proscar -) 5 mg PO DAILY [facility] Last Admin: 03/29/18 10:25 Dose: 5 mg Glipizide (Glucotrol -) 2.5 mg PO DAILY@0700 [facility] Last Admin: 03/30/18 06:08 Dose: 2.5 mg Cefazolin Sodium 1 gm/ (Dextrose) 50 mls @ 100 mls/hr IVPB Q8H-IV [facility] Last Admin: 03/30/18 03:00 Dose: 100 mls/hr Insulin Aspart (Novolog Vial Sliding Scale -) 1 vial SQ ACHS [facility]; Protocol Last Admin: 03/30/18 06:11 Dose: Not Given Metoprolol Tartrate (Lopressor -) 25 mg PO BID [facility] Last Admin: 03/29/18 23:00 Dose: 25 mg Ondansetron HCl (Zofran Injection) 4 mg IVPUSH Q6H PRN PRN Reason: NAUSEA AND/OR VOMITING Rivaroxaban (Xarelto -) 15 mg PO DAILY@1800 [facility] Last Admin: 03/30/18 04:00 Dose: 15 mg Rosuvastatin Calcium (Crestor -) 10 mg PO HS [facility] Last Admin: 03/29/18 23:00 Dose: 10 mg Tamsulosin HCl (Flomax -) 0.4 mg PO BID@0830,2200 [facility] Last Admin: 03/29/18 23:00 Dose: 0.4 mg Torsemide (Demadex -) 80 mg PO DAILY [facility] Last Admin: 03/29/18 10:25 Dose: 80 mg Zolpidem Tartrate (Ambien -) 5 mg PO HS PRN PRN Reason: SLEEP AID Last Admin: 03/29/18 23:44 Dose: 5 mg - Objective Vital Signs: Vital Signs Temperature 98 F 03/30/18 04:00 Pulse Rate 92 H 03/30/18 04:00 Respiratory Rate 20 03/29/18 18:45 Blood Pressure 118/64 03/30/18 04:00 O2 Sat by Pulse Oximetry (%) 95 03/29/18 21:00 Constitutional: Yes: No Distress, Calm Eyes: No: Sclera Icterus HENT: No: Nasal Congestion Cardiovascular: Yes: Regular Rate and Rhythm, JVD (to jaw), S1, S2, Other (PMI non diplaced). No: Gallop, Murmur Respiratory: Yes: CTA Bilaterally, Rales (bases). No: Accessory Muscle Use, Wheezes Gastrointestinal: Yes: Normal Bowel Sounds, Soft. No: Tenderness Musculoskeletal: Yes: Other (No kyphosis) Extremities: No: Cool Edema: No Integumentary: No: Jaundice Neurological: Yes: Alert, Oriented (x3) Psychiatric: No: Agitated Labs: CBC, BMP 03/30/18 06:00 03/30/18 06:00 Assessment/Plan echo with definity 07/2017 dilated LV, EF 20-25%, with apical AK, HK of inf and lat [place], grade II diastolic dysfunction, cath 04/2017 MLM 80-90% with severe calc, pLAD VEHICLE WINDOW TINTER fills with collat from LCX and RCA. EF 15% dyskinetic apex, s/p LM PCI tele: NSR 90s-100s. WCT run of 11b ? VT vs SVT with aberrancy acute on chronic systolic HF s/p ICD - admitting symptoms concerning for CHF exacerbation, BNP 8000 - diuresed with lasix 80 iv bid earlier this admit, no standing wts done then. - changed to torsemide 80 mg BID (home dose), then eventually changed to torsemide 80 qd which he is currently on - med dosing has been limited by low bp--spirono and losartan from home were held here. metoprolol dose reduced. - has had progressively worsening SOB here, wt above last known wt from one year ago (180-181 lbs here, vs 173 in 04/01). - all notes here have documented + JVD the past week, which remains present on exam today. - CXR remains congested. - hence, pt is volume overloaded and requires intensification of diuresis. - resume lasix 80 iv bid. - continue low dose bb (change tartrate to succinate for proven LV dysfunction benefits). - tolerate sbp >90--if trends down further will need to cut metoprolol to 12.5 qd and/or hold it until better diuresed. - do not suspect he is low-output clinically, doubt he will require inotropes for diuresis. - resume ARB +/- spironolactone later, once pt well diuresed and can reassess bp - trend bun/creat daily for now VTach: - probable NSVT on tele. - cont metoprolol (dose limited by low bp) - fluid status optimization as above - K/Mag > 4/2 CAD s/p LM stent 04/2017 - cont statin, metoprolol. resume plavix post op when ok by pos troponin -borderline trop elevation with flat trend and nl ck, not c/w acs afib - restarted on metoprolol 25 mg BID with improved rates, up titrate as tolerated however has had low BP - resume xarelto when ok per opinion PACO on CKD - baseline creatin in 1.4 from office 12/31 - initial PACO here ? cardiorenal, ? obstructive - curtis placed, renal ultrasound, no obstruction - creatinine stable at baseline
[2018-03-30] MEDS: TAMSULOSIN HCL 0.4 MG CAP PO SCH ×2 (09:43→21:30)
[2018-03-30] MEDS: TORSEMIDE 20 MG TABLET (FP) PO SCH (09:44)
[2018-03-30] MEDS: CLOPIDOGREL BISULFATE 75 MG TABLET (FP) PO SCH (09:45)
[2018-03-30] MEDS: ALLOPURINOL 100 MG TABLET (FP) PO SCH (09:45)
[2018-03-30] MEDS: ESCITALOPRAM OXALATE 10 MG TABLET (FP) PO SCH (09:45)
[2018-03-30] MEDS: METOPROLOL TARTRATE 25 MG TABLET (FP) PO SCH (09:45)
[2018-03-30] MEDS: CHOLECALCIFEROL (VITAMIN D3) 1,000 UNIT TABLET (FP) PO SCH (09:45)
[2018-03-30] MEDS: FINASTERIDE 5 MG TABLET (FP) PO SCH (09:45)
--- NOTE | 2018-03-30 10:35 | PN ---
Progress Note (short form) - Note Progress Note: Renal follow up for PACO Pt seen and examined at the bedside reports sob is better no cp, abd pain, N/V/D Vital Signs Temperature 97.4 F L 03/30/18 09:30 Pulse Rate 100 H 03/30/18 09:30 Respiratory Rate 20 03/30/18 09:30 Blood Pressure 107/74 03/30/18 09:30 O2 Sat by Pulse Oximetry (%) 95 03/29/18 21:00 Intake & Output 03/27/18 03/28/18 03/29/18 03/30/18 23:59 23:59 23:59 23:59 Intake Total 2125 1440 1560 Output Total 2850 4600 1650 400 Balance -725 -3160 -90 -400 Weight 78.925 kg 83.518 kg 82.01 kg 82.1 kg NAD awake and alert RRR, No M/R + rales in lung raymond soft NT/ND no Le edema CBC, BMP 03/30/18 06:00 03/30/18 06:00 Current Medications Acetaminophen (Tylenol -) 650 mg PO Q6H PRN PRN Reason: FEVER Last Admin: 03/29/18 23:19 Dose: 650 mg Allopurinol (Zyloprim -) 100 mg PO DAILY [facility] Last Admin: 03/30/18 09:45 Dose: 100 mg Allopurinol (Zyloprim -) 100 mg PO HS PRN PRN Reason: PAIN Last Admin: 03/29/18 23:21 Dose: 100 mg Cholecalciferol (Vitamin D3 -) 2,000 unit PO DAILY [facility] Last Admin: 03/30/18 09:45 Dose: 2,000 unit Clopidogrel Bisulfate (Plavix -) 75 mg PO DAILY [facility] Last Admin: 03/30/18 09:45 Dose: 75 mg Docusate Sodium (Colace -) 100 mg PO Q12H PRN PRN Reason: CONSTIPATION Last Admin: 03/29/18 23:21 Dose: 100 mg Escitalopram Oxalate (Lexapro -) 10 mg PO DAILY [facility] Last Admin: 03/30/18 09:45 Dose: 10 mg Fentanyl (Sublimaze Injection -) 25 mcg IVPUSH [id number] PRN PRN Reason: PAIN-PACU ORDER X 4 DOSES ONLY Last Admin: 03/27/18 14:20 Dose: 25 mcg Finasteride (Proscar -) 5 mg PO DAILY [facility] Last Admin: 03/30/18 09:45 Dose: 5 mg Glipizide (Glucotrol -) 2.5 mg PO DAILY@0700 [facility] Last Admin: 03/30/18 06:08 Dose: 2.5 mg Cefazolin Sodium 1 gm/ (Dextrose) 50 mls @ 100 mls/hr IVPB Q8H-IV [facility] Last Admin: 03/30/18 09:44 Dose: 100 mls/hr Insulin Aspart (Novolog Vial Sliding Scale -) 1 vial SQ ACHS [facility]; Protocol Last Admin: 03/30/18 06:11 Dose: Not Given Metoprolol Tartrate (Lopressor -) 25 mg PO BID [facility] Last Admin: 03/30/18 09:45 Dose: 25 mg Ondansetron HCl (Zofran Injection) 4 mg IVPUSH Q6H PRN PRN Reason: NAUSEA AND/OR VOMITING Rivaroxaban (Xarelto -) 15 mg PO DAILY@1800 [facility] Last Admin: 03/30/18 04:00 Dose: 15 mg Rosuvastatin Calcium (Crestor -) 10 mg PO HS [facility] Last Admin: 03/29/18 23:00 Dose: 10 mg Tamsulosin HCl (Flomax -) 0.4 mg PO BID@0830,2200 [facility] Last Admin: 03/30/18 09:43 Dose: 0.4 mg Torsemide (Demadex -) 80 mg PO DAILY [facility] Last Admin: 03/30/18 09:44 Dose: 80 mg Zolpidem Tartrate (Ambien -) 5 mg PO HS PRN PRN Reason: SLEEP AID Last Admin: 03/29/18 23:44 Dose: 5 mg 78 year old gentleman with Hx of CHF, Hypertension, HLD, DM who presented with SOB and admitted for CHF exacerbation with PACO. #PACO on ? 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
[2018-03-30] MEDS ORDERED: INSULIN (NOVOLOG) ASPART 100 UNITS/ML 10ML VIAL ONE (11:18)
--- NOTE | 2018-03-30 12:46 | PN ---
Progress Note (short form) - Note Progress Note: No CP or SOB. No acute events overnight. Intake & Output 03/27/18 03/28/18 03/29/18 03/30/18 23:59 23:59 23:59 23:59 Intake Total 2125 1440 1560 Output Total 2850 4600 1650 400 Balance -725 -3160 -90 -400 Weight 174 lb 184 lb 2 oz 180 lb 12.8 oz 181 lb Last Vital Signs Temp Pulse Resp BP Pulse Ox 97.4 F L 100 H 20 107/74 95 03/30/18 09:30 03/30/18 09:30 03/30/18 09:30 03/30/18 09:30 03/29/18 21:00 Active Medications Acetaminophen (Tylenol -) 650 mg PO Q6H PRN PRN Reason: FEVER Last Admin: 03/29/18 23:19 Dose: 650 mg Allopurinol (Zyloprim -) 100 mg PO DAILY [facility] Last Admin: 03/30/18 09:45 Dose: 100 mg Allopurinol (Zyloprim -) 100 mg PO HS PRN PRN Reason: PAIN Last Admin: 03/29/18 23:21 Dose: 100 mg Cholecalciferol (Vitamin D3 -) 2,000 unit PO DAILY [facility] Last Admin: 03/30/18 09:45 Dose: 2,000 unit Clopidogrel Bisulfate (Plavix -) 75 mg PO DAILY [facility] Last Admin: 03/30/18 09:45 Dose: 75 mg Docusate Sodium (Colace -) 100 mg PO Q12H PRN PRN Reason: CONSTIPATION Last Admin: 03/29/18 23:21 Dose: 100 mg Escitalopram Oxalate (Lexapro -) 10 mg PO DAILY [facility] Last Admin: 03/30/18 09:45 Dose: 10 mg Fentanyl (Sublimaze Injection -) 25 mcg IVPUSH [id number] PRN PRN Reason: PAIN-PACU ORDER X 4 DOSES ONLY Last Admin: 03/27/18 14:20 Dose: 25 mcg Finasteride (Proscar -) 5 mg PO DAILY [facility] Last Admin: 03/30/18 09:45 Dose: 5 mg Glipizide (Glucotrol -) 2.5 mg PO DAILY@0700 [facility] Last Admin: 03/30/18 06:08 Dose: 2.5 mg Cefazolin Sodium 1 gm/ (Dextrose) 50 mls @ 100 mls/hr IVPB Q8H-IV [facility] Last Admin: 03/30/18 09:44 Dose: 100 mls/hr Insulin Aspart (Novolog Vial Sliding Scale -) 1 vial SQ ACHS [facility]; Protocol Last Admin: 03/30/18 11:45 Dose: 2 units Metoprolol Tartrate (Lopressor -) 25 mg PO BID [facility] Last Admin: 03/30/18 09:45 Dose: 25 mg Ondansetron HCl (Zofran Injection) 4 mg IVPUSH Q6H PRN PRN Reason: NAUSEA AND/OR VOMITING Rivaroxaban (Xarelto -) 15 mg PO DAILY@1800 [facility] Last Admin: 03/30/18 04:00 Dose: 15 mg Rosuvastatin Calcium (Crestor -) 10 mg PO HS [facility] Last Admin: 03/29/18 23:00 Dose: 10 mg Tamsulosin HCl (Flomax -) 0.4 mg PO BID@0830,2200 [facility] Last Admin: 03/30/18 09:43 Dose: 0.4 mg Torsemide (Demadex -) 80 mg PO DAILY [facility] Last Admin: 03/30/18 09:44 Dose: 80 mg Torsemide (Demadex -) 40 mg PO ONCE ONE Stop: 03/30/18 14:01 Zolpidem Tartrate (Ambien -) 5 mg PO HS PRN PRN Reason: SLEEP AID Last Admin: 03/29/18 23:44 Dose: 5 mg Constitutional: Yes: NAD Eyes: Yes: WNL HENT: Yes: WNL Neck: Yes: WNL Cardiovascular: Yes: Pulse Irregular, S1, S2 Respiratory: Yes: few basilar rales Gastrointestinal: Yes: Normal Bowel Sounds, Soft Extremities: Yes: WNL Edema: No Labs: Laboratory Results - last 24 hr 03/29/18 03/30/18 03/30/18 16:15 06:00 06:00 WBC 9.5 RBC 4.39 Hgb 12.0 Hct 37.6 MCV 85.7 MCH 27.3 MCHC 31.8 L RDW 17.3 H Plt Count 227 MPV 8.0 Absolute Neuts (auto) 6.9 Neutrophils % 73.3 Lymphocytes % 15.7 D Monocytes % 8.5 Eosinophils % 1.9 D Basophils % 0.6 Nucleated RBC % 0 Sodium 137 Potassium 4.1 Chloride 100 Carbon Dioxide 28 Anion Gap 9 BUN 43 H Creatinine 1.4 H Creat Clearance w eGFR 49.27 POC Glucometer 177 Random Glucose 134 H Calcium 8.5 Magnesium 2.3 03/30/18 03/30/18 06:07 11:44 WBC RBC Hgb Hct MCV MCH MCHC RDW Plt Count MPV Absolute Neuts (auto) Neutrophils % Lymphocytes % Monocytes % Eosinophils % Basophils % Nucleated RBC % Sodium Potassium Chloride Carbon Dioxide Anion Gap BUN Creatinine Creat Clearance w eGFR POC Glucometer 164 220 Random Glucose Calcium Magnesium Problem List - Problems (1) AICD (automatic cardioverter/defibrillator) present Code(s): Z95.810 - PRESENCE OF AUTOMATIC (IMPLANTABLE) CARDIAC DEFIBRILLATOR (2) PACO (acute kidney injury) Code(s): N17.9 - ACUTE KIDNEY FAILURE, UNSPECIFIED (3) Acute systolic CHF (congestive heart failure) Code(s): I50.21 - ACUTE SYSTOLIC (CONGESTIVE) HEART FAILURE (4) CAD (coronary artery disease) Code(s): I25.10 - ATHSCL HEART DISEASE OF [place] CORONARY ARTERY W/O ANG PCTRS (5) Diabetes mellitus Code(s): E11.9 - TYPE 2 DIABETES MELLITUS WITHOUT COMPLICATIONS (6) Hypercholesteremia Code(s): E78.00 - PURE HYPERCHOLESTEROLEMIA, UNSPECIFIED (7) Elevated troponin I level Code(s): R74.8 - ABNORMAL LEVELS OF OTHER SERUM ENZYMES (8) Hematuria Code(s): R31.9 - HEMATURIA, UNSPECIFIED (9) Hypertension Code(s): I10 - ESSENTIAL (PRIMARY) HYPERTENSION Assessment/Plan Acute on Chronic Systolic Heart Failure Atrial Fibrillation CAD +Troponins likely Demand Ischemia Acute on Chronic Renal Failure HTN DM Hyperlipidemia Hematuria - Demadex - monitor urine output, creatinine - daily weights - Incentive spirometry - rate controlled with Beta Mili - O2 to maintain saturation Dr Dalton
--- NOTE | 2018-03-30 13:52 | PN ---
Progress Note (short form) - Note Progress Note: UROLOGY NOTE. pt. s/p tuvo on 03/27/18 cbi was d/c yesterday curtis- patent and clear abd. soft,n/t plan d/c folet in am.
[2018-03-30] MEDS ORDERED: TORSEMIDE 20 MG TABLET (FP) PO ONE (14:00)
[2018-03-30] MEDS: FUROSEMIDE 40 MG/4 ML INJECTABLE VIAL IVPUSH SCH (14:15)
[2018-03-30] MEDS: ACETAMINOPHEN 325 MG TABLET (FP) PO PRN (16:06)
--- NOTE | 2018-03-30 16:22 | PN ---
Progress Note, Physician History of Present Illness: Pt breathing is not yet back to normal Pt w/o CP, palpitations, abd pain, N, V. Holt is present, no blood noticed; pt is anxious about not taking the Holt out fast enough. - Current Medication List Current Medications: Active Medications Acetaminophen (Tylenol -) 650 mg PO Q6H PRN PRN Reason: FEVER Last Admin: 03/30/18 16:06 Dose: 650 mg Allopurinol (Zyloprim -) 100 mg PO DAILY [facility] Last Admin: 03/30/18 09:45 Dose: 100 mg Allopurinol (Zyloprim -) 100 mg PO HS PRN PRN Reason: PAIN Last Admin: 03/29/18 23:21 Dose: 100 mg Cholecalciferol (Vitamin D3 -) 2,000 unit PO DAILY [facility] Last Admin: 03/30/18 09:45 Dose: 2,000 unit Clopidogrel Bisulfate (Plavix -) 75 mg PO DAILY [facility] Last Admin: 03/30/18 09:45 Dose: 75 mg Docusate Sodium (Colace -) 100 mg PO Q12H PRN PRN Reason: CONSTIPATION Last Admin: 03/29/18 23:21 Dose: 100 mg Escitalopram Oxalate (Lexapro -) 10 mg PO DAILY [facility] Last Admin: 03/30/18 09:45 Dose: 10 mg Fentanyl (Sublimaze Injection -) 25 mcg IVPUSH [id number] PRN PRN Reason: PAIN-PACU ORDER X 4 DOSES ONLY Last Admin: 03/27/18 14:20 Dose: 25 mcg Finasteride (Proscar -) 5 mg PO DAILY [facility] Last Admin: 03/30/18 09:45 Dose: 5 mg Furosemide (Lasix Injection -) 80 mg IVPUSH BID@0600,1400 [facility] Last Admin: 03/30/18 14:15 Dose: 80 mg Glipizide (Glucotrol -) 2.5 mg PO DAILY@0700 [facility] Last Admin: 03/30/18 06:08 Dose: 2.5 mg Cefazolin Sodium 1 gm/ (Dextrose) 50 mls @ 100 mls/hr IVPB Q8H-IV [facility] Last Admin: 03/30/18 09:44 Dose: 100 mls/hr Insulin Aspart (Novolog Vial Sliding Scale -) 1 vial SQ ACHS [facility]; Protocol Last Admin: 03/30/18 11:45 Dose: 2 units Metoprolol Succinate (Toprol Xl -) 25 mg PO DAILY [facility] Ondansetron HCl (Zofran Injection) 4 mg IVPUSH Q6H PRN PRN Reason: NAUSEA AND/OR VOMITING Rivaroxaban (Xarelto -) 15 mg PO DAILY@1800 [facility] Last Admin: 03/30/18 04:00 Dose: 15 mg Rosuvastatin Calcium (Crestor -) 10 mg PO HS [facility] Last Admin: 03/29/18 23:00 Dose: 10 mg Tamsulosin HCl (Flomax -) 0.4 mg PO BID@0830,2200 [facility] Last Admin: 03/30/18 09:43 Dose: 0.4 mg Zolpidem Tartrate (Ambien -) 5 mg PO HS PRN PRN Reason: SLEEP AID Last Admin: 03/29/18 23:44 Dose: 5 mg - Objective Vital Signs: Vital Signs Temperature 98.1 F 03/30/18 14:31 Pulse Rate 81 03/30/18 14:31 Respiratory Rate 20 03/30/18 14:31 Blood Pressure 108/65 03/30/18 14:31 O2 Sat by Pulse Oximetry (%) 95 03/30/18 09:00 Constitutional: Yes: No Distress, Anxious Cardiovascular: Yes: Regular Rate and Rhythm, S1, S2 Respiratory: Yes: Regular, CTA Bilaterally Gastrointestinal: Yes: Normal Bowel Sounds, Soft. No: Tenderness Edema: No Neurological: Yes: Alert, Oriented Labs: CBC, BMP 03/30/18 06:00 03/30/18 06:00 Problem List - Problems (1) Acute systolic CHF (congestive heart failure) Code(s): I50.21 - ACUTE SYSTOLIC (CONGESTIVE) HEART FAILURE (2) Elevated troponin I level Code(s): R74.8 - ABNORMAL LEVELS OF OTHER SERUM ENZYMES (3) Hypotension Code(s): I95.9 - HYPOTENSION, UNSPECIFIED (4) PACO (acute kidney injury) Code(s): N17.9 - ACUTE KIDNEY FAILURE, UNSPECIFIED (5) CRF (chronic renal failure) Code(s): N18.9 - CHRONIC KIDNEY DISEASE, UNSPECIFIED (6) Hypercholesteremia Code(s): E78.00 - PURE HYPERCHOLESTEROLEMIA, UNSPECIFIED (7) Hypertension Code(s): I10 - ESSENTIAL (PRIMARY) HYPERTENSION (8) Pleural effusion Code(s): J90 - PLEURAL EFFUSION, NOT ELSEWHERE CLASSIFIED (9) CAD (coronary artery disease) Code(s): I25.10 - ATHSCL HEART DISEASE OF [place] CORONARY ARTERY W/O ANG PCTRS (10) AICD (automatic cardioverter/defibrillator) present Code(s): Z95.810 - PRESENCE OF AUTOMATIC (IMPLANTABLE) CARDIAC DEFIBRILLATOR (11) PAF (paroxysmal atrial fibrillation) Code(s): I48.0 - PAROXYSMAL ATRIAL FIBRILLATION (12) Urinary retention Code(s): R33.9 - RETENTION OF URINE, UNSPECIFIED (13) Hematuria Code(s): R31.9 - HEMATURIA, UNSPECIFIED Assessment/Plan S/p TUVP, POD#3; off CBI. Pt on Xarelto and Plavix for patient. Admitted to ICU, transferred to Telemetry. Serial CE -stable; CE were found to be elevated in the settings of PACO and CHF ( probable demand ischemia) ICU/CCM, Cardio, Renal, consults are appreciated. Home med on hold at admission: Losartan, Spironolactone, Torsemide, Metformin. BGM with Novolog coverage. Pt on Glipizide Pt was switched to PO diuretic. Pt is tolerating Metoprolol; pt's blood presure is improved. Pt would benefit of ACEI or ARB; can be restarted as tolerated. AM labs. Pt's case was d/w pt's nurse.
[2018-03-30] MEDS ORDERED: PT OWN MED DRAWER 7, Y5N ONE ×2 (17:13→17:16)
[2018-03-30] MEDS: ALLOPURINOL 100 MG TABLET (FP) PO PRN (21:30)
[2018-03-30] MEDS: ROSUVASTATIN CA 10 MG TABLET (FP) PO SCH (21:30)
[2018-03-30] MEDS: ZOLPIDEM TARTRATE 5 MG TABLET PO PRN (21:30)
[2018-03-31] MEDS: CEFAZOLIN 1 GM in DEXTROSE 5%-WATER - 50 ML IVPB SCH ×3 (01:05→18:09)
[2018-03-31] MEDS: FUROSEMIDE 40 MG/4 ML INJECTABLE VIAL IVPUSH SCH ×2 (05:26→15:16)
[2018-03-31] MEDS: glipiZIDE 5 MG TABLET (FP) PO SCH (06:19)
[2018-03-31] MEDS: INSULIN SLIDING SCALE (NOVOLOG) 1 VIAL SQ SCH ×4 (06:19→21:09)
[2018-03-31 07:07] LABS: BASO % 0.5 % (0-2.0); EOS % 0.5 % (0-4.5); HEMATOCRIT 38.7 % (35.4-49); HEMOGLOBIN 12.3 GM/dL (11.7-16.9); LYMPH % 5.8 % (8-40); MCH 27.1 pg (25.7-33.7); MCHC 31.7 g/dl (32.0-35.9); MEAN CELL VOLUME 85.6 fl (80-96); MEAN PLT VOLUME 7.7 fl (7.5-11.1); MONO % 7.5 % (3.8-10.2); NEUT % 85.7 % (42.8-82.8); PLATELET COUNT 246 K/MM3 (134-434); RBC 4.52 M/mm3 (4.00-5.60); RDW 17.3 % (11.9-15.9); WHITE BLOOD COUNT 12.2 K/mm3 (4.0-10.0)
[2018-03-31] MEDS ORDERED: PT OWN MED DRAWER 7, Y5N ONE ×2 (07:35→16:54)
[2018-03-31 07:36] LABS: ANION GAP 9 MMOL/L (8-16); BLOOD UREA NITROGEN 41 mg/dL (7-18); CALCIUM 8.6 mg/dL (8.5-10.1); CHLORIDE 99 mmol/L (98-107); CO2 27 mmol/L (21-32); CREATININE 1.3 mg/dL (0.55-1.3); GLUCOSE,RANDOM 164 mg/dL (74-106); MAGNESIUM 2.1 mg/dL (1.8-2.4); POTASSIUM 3.8 mmol/L (3.5-5.1); SODIUM 135 mmol/L (136-145)
[2018-03-31] MEDS: TAMSULOSIN HCL 0.4 MG CAP PO SCH ×2 (08:13→21:08)
[2018-03-31] MEDS ORDERED: DEXTROSE 5%-WATER - 50 ML IVPB ONE ×2 (08:52→16:55)
[2018-03-31] MEDS ORDERED: ceFAZolin SODIUM 1 GM VIAL ONE ×2 (08:52→16:55)
[2018-03-31] MEDS: ESCITALOPRAM OXALATE 10 MG TABLET (FP) PO SCH (09:15)
[2018-03-31] MEDS: CHOLECALCIFEROL (VITAMIN D3) 1,000 UNIT TABLET (FP) PO SCH (09:16)
[2018-03-31] MEDS: ALLOPURINOL 100 MG TABLET (FP) PO SCH (09:16)
[2018-03-31] MEDS: metoPROLOL SUCCINATE 25 MG TAB.SR.24H (FP) PO SCH (09:16)
[2018-03-31] MEDS: CLOPIDOGREL BISULFATE 75 MG TABLET (FP) PO SCH (09:16)
[2018-03-31] MEDS: FINASTERIDE 5 MG TABLET (FP) PO SCH (09:16)
--- NOTE | 2018-03-31 12:35 | PN ---
Progress Note, Physician Chief Complaint: OOB to chair, daughter at bedside ; no CP no cough; able to urinate; Holt removed. pt had some SOB earlier but feels better with IV lasix; seen by cardiology; CXR pending consults meds and tests and plan reviewed and d/w pt and daughter - Current Medication List Current Medications: Active Medications Acetaminophen (Tylenol -) 650 mg PO Q6H PRN PRN Reason: FEVER Last Admin: 03/30/18 16:06 Dose: 650 mg Allopurinol (Zyloprim -) 100 mg PO DAILY [facility] Last Admin: 03/31/18 09:16 Dose: 100 mg Allopurinol (Zyloprim -) 100 mg PO HS PRN PRN Reason: PAIN Last Admin: 03/30/18 21:30 Dose: 100 mg Cholecalciferol (Vitamin D3 -) 2,000 unit PO DAILY [facility] Last Admin: 03/31/18 09:16 Dose: 2,000 unit Clopidogrel Bisulfate (Plavix -) 75 mg PO DAILY [facility] Last Admin: 03/31/18 09:16 Dose: 75 mg Docusate Sodium (Colace -) 100 mg PO Q12H PRN PRN Reason: CONSTIPATION Last Admin: 03/29/18 23:21 Dose: 100 mg Escitalopram Oxalate (Lexapro -) 10 mg PO DAILY [facility] Last Admin: 03/31/18 09:15 Dose: 10 mg Fentanyl (Sublimaze Injection -) 25 mcg IVPUSH [id number] PRN PRN Reason: PAIN-PACU ORDER X 4 DOSES ONLY Last Admin: 03/27/18 14:20 Dose: 25 mcg Finasteride (Proscar -) 5 mg PO DAILY [facility] Last Admin: 03/31/18 09:16 Dose: 5 mg Furosemide (Lasix Injection -) 80 mg IVPUSH BID@0600,1400 [facility] Last Admin: 03/31/18 05:26 Dose: 80 mg Glipizide (Glucotrol -) 2.5 mg PO DAILY@0700 [facility] Last Admin: 03/31/18 06:19 Dose: 2.5 mg Cefazolin Sodium 1 gm/ (Dextrose) 50 mls @ 100 mls/hr IVPB Q8H-IV [facility] Last Admin: 03/31/18 09:15 Dose: 100 mls/hr Insulin Aspart (Novolog Vial Sliding Scale -) 1 vial SQ ACHS [facility]; Protocol Last Admin: 03/31/18 11:48 Dose: Not Given Metoprolol Succinate (Toprol Xl -) 25 mg PO DAILY [facility] Last Admin: 03/31/18 09:16 Dose: 25 mg Ondansetron HCl (Zofran Injection) 4 mg IVPUSH Q6H PRN PRN Reason: NAUSEA AND/OR VOMITING Rivaroxaban (Xarelto -) 15 mg PO DAILY@1800 [facility] Last Admin: 03/30/18 17:50 Dose: 15 mg Rosuvastatin Calcium (Crestor -) 10 mg PO HS [facility] Last Admin: 03/30/18 21:30 Dose: 10 mg Tamsulosin HCl (Flomax -) 0.4 mg PO BID@0830,2200 [facility] Last Admin: 03/31/18 08:13 Dose: 0.4 mg Zolpidem Tartrate (Ambien -) 5 mg PO HS PRN PRN Reason: SLEEP AID Last Admin: 03/30/18 21:30 Dose: 5 mg - Objective Vital Signs: Vital Signs Temperature 97.4 F L 03/31/18 09:14 Pulse Rate 109 H 03/31/18 09:14 Respiratory Rate 20 03/31/18 09:14 Blood Pressure 120/69 03/31/18 09:14 O2 Sat by Pulse Oximetry (%) 95 03/31/18 09:00 Constitutional: Yes: No Distress, Calm Eyes: Yes: Conjunctiva Clear HENT: Yes: Atraumatic Neck: Yes: Supple Cardiovascular: Yes: Regular Rate and Rhythm Respiratory: Yes: Diminished Gastrointestinal: Yes: Soft. No: Tenderness Genitourinary: No: CVA Tenderness - Left, CVA Tenderness - Right Musculoskeletal: No: Joint Stiffness, Joint Swelling Extremities: No: Cold, Cool, Cyanosis Edema: No Integumentary: No: Rash, Venous Stasis Changes Neurological: Yes: WNL, Alert, Oriented ...Motor Strength: WNL Psychiatric: Yes: WNL, Alert, Oriented. No: Agitated, Suicidal Ideation Labs: CBC, BMP 03/31/18 06:39 03/31/18 06:39 - ....Imaging Other: Report Reviewed Assessment/Plan 78 YOM admitted with Acute on Chronic Systolic Heart Failure, Atrial Fibrillation, CAD Acute on Chronic Renal Failure, BPH urinary obstruction, s/p TURP HTN, DM, Hyperlipidemia, Hematuria - continue lasix for CHF/SOB - monitor urine output, creatinine - keep net negative - daily weights - rate controlled - , cardio and pulm f/u - O2 to keep SpO2 >90% f/w pt and staff and pt's daughter at bedside
--- NOTE | 2018-03-31 12:36 | PN ---
Progress Note (short form) - Note Progress Note: No CP or SOB. No acute events overnight. Intake & Output 03/28/18 03/29/18 03/30/18 03/31/18 23:59 23:59 23:59 23:59 Intake Total 1440 1560 130 250 Output Total 4600 1650 2150 930 Balance -3160 -90 -2020 -680 Weight 184 lb 2 oz 180 lb 12.8 oz 181 lb 183 lb 2 oz Last Vital Signs Temp Pulse Resp BP Pulse Ox 97.4 F L 109 H 20 120/69 95 03/31/18 09:14 03/31/18 09:14 03/31/18 09:14 03/31/18 09:14 03/31/18 09:00 Active Medications Acetaminophen (Tylenol -) 650 mg PO Q6H PRN PRN Reason: FEVER Last Admin: 03/30/18 16:06 Dose: 650 mg Allopurinol (Zyloprim -) 100 mg PO DAILY [facility] Last Admin: 03/31/18 09:16 Dose: 100 mg Allopurinol (Zyloprim -) 100 mg PO HS PRN PRN Reason: PAIN Last Admin: 03/30/18 21:30 Dose: 100 mg Cholecalciferol (Vitamin D3 -) 2,000 unit PO DAILY [facility] Last Admin: 03/31/18 09:16 Dose: 2,000 unit Clopidogrel Bisulfate (Plavix -) 75 mg PO DAILY [facility] Last Admin: 03/31/18 09:16 Dose: 75 mg Docusate Sodium (Colace -) 100 mg PO Q12H PRN PRN Reason: CONSTIPATION Last Admin: 03/29/18 23:21 Dose: 100 mg Escitalopram Oxalate (Lexapro -) 10 mg PO DAILY [facility] Last Admin: 03/31/18 09:15 Dose: 10 mg Fentanyl (Sublimaze Injection -) 25 mcg IVPUSH [id number] PRN PRN Reason: PAIN-PACU ORDER X 4 DOSES ONLY Last Admin: 03/27/18 14:20 Dose: 25 mcg Finasteride (Proscar -) 5 mg PO DAILY [facility] Last Admin: 03/31/18 09:16 Dose: 5 mg Furosemide (Lasix Injection -) 80 mg IVPUSH BID@0600,1400 [facility] Last Admin: 03/31/18 05:26 Dose: 80 mg Glipizide (Glucotrol -) 2.5 mg PO DAILY@0700 [facility] Last Admin: 03/31/18 06:19 Dose: 2.5 mg Cefazolin Sodium 1 gm/ (Dextrose) 50 mls @ 100 mls/hr IVPB Q8H-IV [facility] Last Admin: 03/31/18 09:15 Dose: 100 mls/hr Insulin Aspart (Novolog Vial Sliding Scale -) 1 vial SQ ACHS [facility]; Protocol Last Admin: 03/31/18 11:48 Dose: Not Given Metoprolol Succinate (Toprol Xl -) 25 mg PO DAILY [facility] Last Admin: 03/31/18 09:16 Dose: 25 mg Ondansetron HCl (Zofran Injection) 4 mg IVPUSH Q6H PRN PRN Reason: NAUSEA AND/OR VOMITING Rivaroxaban (Xarelto -) 15 mg PO DAILY@1800 [facility] Last Admin: 03/30/18 17:50 Dose: 15 mg Rosuvastatin Calcium (Crestor -) 10 mg PO HS [facility] Last Admin: 03/30/18 21:30 Dose: 10 mg Tamsulosin HCl (Flomax -) 0.4 mg PO BID@0830,2200 [facility] Last Admin: 03/31/18 08:13 Dose: 0.4 mg Zolpidem Tartrate (Ambien -) 5 mg PO HS PRN PRN Reason: SLEEP AID Last Admin: 03/30/18 21:30 Dose: 5 mg Constitutional: Yes: NAD Eyes: Yes: WNL HENT: Yes: WNL Neck: Yes: WNL Cardiovascular: Yes: Pulse Irregular, S1, S2 Respiratory: Yes: few basilar rales Gastrointestinal: Yes: Normal Bowel Sounds, Soft Extremities: Yes: WNL Edema: No Labs: Laboratory Results - last 24 hr 03/30/18 03/30/18 03/31/18 16:53 21:29 06:18 WBC RBC Hgb Hct MCV MCH MCHC RDW Plt Count MPV Absolute Neuts (auto) Neutrophils % Lymphocytes % Monocytes % Eosinophils % Basophils % Nucleated RBC % Sodium Potassium Chloride Carbon Dioxide Anion Gap BUN Creatinine Creat Clearance w eGFR POC Glucometer 116 138 177 Random Glucose Calcium Magnesium 03/31/18 03/31/18 03/31/18 06:39 06:39 11:40 WBC 12.2 H RBC 4.52 Hgb 12.3 Hct 38.7 MCV 85.6 MCH 27.1 MCHC 31.7 L RDW 17.3 H Plt Count 246 MPV 7.7 Absolute Neuts (auto) 10.4 H Neutrophils % 85.7 H Lymphocytes % 5.8 L D Monocytes % 7.5 Eosinophils % 0.5 Basophils % 0.5 Nucleated RBC % 0 Sodium 135 L Potassium 3.8 Chloride 99 Carbon Dioxide 27 Anion Gap 9 BUN 41 H Creatinine 1.3 Creat Clearance w eGFR 53.67 POC Glucometer 194 Random Glucose 164 H Calcium 8.6 Magnesium 2.1 Problem List - Problems (1) AICD (automatic cardioverter/defibrillator) present Code(s): Z95.810 - PRESENCE OF AUTOMATIC (IMPLANTABLE) CARDIAC DEFIBRILLATOR (2) PACO (acute kidney injury) Code(s): N17.9 - ACUTE KIDNEY FAILURE, UNSPECIFIED (3) Acute systolic CHF (congestive heart failure) Code(s): I50.21 - ACUTE SYSTOLIC (CONGESTIVE) HEART FAILURE (4) CAD (coronary artery disease) Code(s): I25.10 - ATHSCL HEART DISEASE OF [place] CORONARY ARTERY W/O ANG PCTRS (5) Diabetes mellitus Code(s): E11.9 - TYPE 2 DIABETES MELLITUS WITHOUT COMPLICATIONS (6) Hypercholesteremia Code(s): E78.00 - PURE HYPERCHOLESTEROLEMIA, UNSPECIFIED (7) Elevated troponin I level Code(s): R74.8 - ABNORMAL LEVELS OF OTHER SERUM ENZYMES (8) Hematuria Code(s): R31.9 - HEMATURIA, UNSPECIFIED (9) Hypertension Code(s): I10 - ESSENTIAL (PRIMARY) HYPERTENSION Assessment/Plan Acute on Chronic Systolic Heart Failure Atrial Fibrillation CAD +Troponins likely Demand Ischemia Acute on Chronic Renal Failure HTN DM Hyperlipidemia Hematuria - Demadex - monitor urine output, creatinine - daily weights - Incentive spirometry - rate controlled with Beta Mili - O2 to maintain saturation Dr Dalton
--- NOTE | 2018-03-31 13:21 | PN ---
Progress Note, Physician Chief Complaint: sob History of Present Illness: remains very sob. no cp. no leg swelling. no palpitations ex cigs - Current Medication List Current Medications: Active Medications Acetaminophen (Tylenol -) 650 mg PO Q6H PRN PRN Reason: FEVER Last Admin: 03/30/18 16:06 Dose: 650 mg Allopurinol (Zyloprim -) 100 mg PO DAILY [facility] Last Admin: 03/31/18 09:16 Dose: 100 mg Allopurinol (Zyloprim -) 100 mg PO HS PRN PRN Reason: PAIN Last Admin: 03/30/18 21:30 Dose: 100 mg Cholecalciferol (Vitamin D3 -) 2,000 unit PO DAILY [facility] Last Admin: 03/31/18 09:16 Dose: 2,000 unit Clopidogrel Bisulfate (Plavix -) 75 mg PO DAILY [facility] Last Admin: 03/31/18 09:16 Dose: 75 mg Docusate Sodium (Colace -) 100 mg PO Q12H PRN PRN Reason: CONSTIPATION Last Admin: 03/29/18 23:21 Dose: 100 mg Escitalopram Oxalate (Lexapro -) 10 mg PO DAILY [facility] Last Admin: 03/31/18 09:15 Dose: 10 mg Fentanyl (Sublimaze Injection -) 25 mcg IVPUSH [id number] PRN PRN Reason: PAIN-PACU ORDER X 4 DOSES ONLY Last Admin: 03/27/18 14:20 Dose: 25 mcg Finasteride (Proscar -) 5 mg PO DAILY [facility] Last Admin: 03/31/18 09:16 Dose: 5 mg Furosemide (Lasix Injection -) 80 mg IVPUSH BID@0600,1400 [facility] Last Admin: 03/31/18 05:26 Dose: 80 mg Glipizide (Glucotrol -) 2.5 mg PO DAILY@0700 [facility] Last Admin: 03/31/18 06:19 Dose: 2.5 mg Cefazolin Sodium 1 gm/ (Dextrose) 50 mls @ 100 mls/hr IVPB Q8H-IV [facility] Last Admin: 03/31/18 09:15 Dose: 100 mls/hr Insulin Aspart (Novolog Vial Sliding Scale -) 1 vial SQ ACHS [facility]; Protocol Last Admin: 03/31/18 11:48 Dose: Not Given Metoprolol Succinate (Toprol Xl -) 25 mg PO DAILY [facility] Last Admin: 03/31/18 09:16 Dose: 25 mg Ondansetron HCl (Zofran Injection) 4 mg IVPUSH Q6H PRN PRN Reason: NAUSEA AND/OR VOMITING Rivaroxaban (Xarelto -) 15 mg PO DAILY@1800 [facility] Last Admin: 03/30/18 17:50 Dose: 15 mg Rosuvastatin Calcium (Crestor -) 10 mg PO HS [facility] Last Admin: 03/30/18 21:30 Dose: 10 mg Tamsulosin HCl (Flomax -) 0.4 mg PO BID@0830,2200 [facility] Last Admin: 03/31/18 08:13 Dose: 0.4 mg Zolpidem Tartrate (Ambien -) 5 mg PO HS PRN PRN Reason: SLEEP AID Last Admin: 03/30/18 21:30 Dose: 5 mg - Objective Vital Signs: Vital Signs Temperature 97.4 F L 03/31/18 09:14 Pulse Rate 109 H 03/31/18 09:14 Respiratory Rate 20 03/31/18 09:14 Blood Pressure 120/69 03/31/18 09:14 O2 Sat by Pulse Oximetry (%) 95 03/31/18 09:00 Constitutional: Yes: No Distress, Calm Eyes: No: Sclera Icterus HENT: No: Nasal Congestion Cardiovascular: Yes: Regular Rate and Rhythm, JVD, S1, S2, Other (PMI non diplaced). No: Gallop, Murmur Respiratory: Yes: CTA Bilaterally. No: Accessory Muscle Use, Rales, Wheezes Gastrointestinal: Yes: Normal Bowel Sounds, Soft. No: Tenderness Musculoskeletal: Yes: Other (No kyphosis) Extremities: No: Cold, Cyanosis Edema: No Integumentary: No: Jaundice Neurological: Yes: Alert, Oriented (x3) Psychiatric: No: Agitated Labs: CBC, BMP 03/31/18 06:39 03/31/18 06:39 Assessment/Plan echo with definity 07/2017 dilated LV, EF 20-25%, with apical AK, HK of inf and lat [place], grade II diastolic dysfunction, cath 04/2017 MLM 80-90% with severe calc, pLAD VIDEO PRODUCTION COORDINATOR fills with collat from LCX and RCA. EF 15% dyskinetic apex, s/p LM PCI tele: NSR. no VT. acute on chronic systolic HF s/p ICD - admitting symptoms concerning for CHF exacerbation, BNP 8000 - diuresed with lasix 80 iv bid earlier this admit, no standing wts done then. - changed to torsemide 80 mg BID (home dose), then eventually changed to torsemide 80 qd which he is currently on - med dosing has been limited by low bp--spirono and losartan from home were held here. metoprolol dose reduced. - has had progressively worsening SOB here, wt above last known wt from one year ago (180-181 lbs here, vs 173 in 04/01). - all notes here have documented + JVD the past week, which remains present on exam today. - CXR remains congested. - hence, pt is volume overloaded and requires intensification of diuresis. - 03/30: resumed lasix 80 iv bid. - 03/31: I/O (had curtis in) = 130/2150 (pt confirms very little po fluids). wt up 181 to 183 lbs. renal fxn stable. remains very sob and volume overloaded. - pt states her urinated about 300 cc after this morning's lasix 80 iv dose. will repeat lasix now 80 iv, with metolazone. to receive lasix tid today - continue low dose bb (change tartrate to succinate for proven LV dysfunction benefits). - tolerate sbp >90--if trends down further will need to cut metoprolol to 12.5 qd and/or hold it until better diuresed. - do not suspect he is low-output clinically, doubt he will require inotropes for diuresis. - resume ARB +/- spironolactone later, once pt well diuresed and can reassess bp VTach: - probable NSVT on tele. - cont metoprolol (dose limited by low bp) - fluid status optimization as above - K/Mag > 4/2 CAD s/p LM stent 04/2017 - cont statin, metoprolol. resume plavix post op when ok by pos troponin -borderline trop elevation with flat trend and nl ck, not c/w acs afib - restarted on metoprolol 25 mg BID with improved rates, up titrate as tolerated however has had low BP - resume xarelto when ok per opinion PACO on CKD - baseline creatin in 1.4 from office 12/31 - initial PACO here ? cardiorenal, ? obstructive - curtis placed, renal ultrasound, no obstruction - creatinine stable at baseline
[2018-03-31] MEDS ORDERED: METOLAZONE 5 MG TABLET PO ONE (13:26)
[2018-03-31] MEDS ORDERED: POTASSIUM CHLORIDE ORAL LIQUID 20 MEQ/15 ML PO ONE ×2 (13:29→18:00)
[2018-03-31] MEDS ORDERED: FUROSEMIDE 40 MG/4 ML INJECTABLE VIAL IVPUSH ONE ×2 (18:00)
[2018-03-31] MEDS: RIVAROXABAN 15 MG TABLET PO SCH (18:10)
[2018-03-31] MEDS: ROSUVASTATIN CA 10 MG TABLET (FP) PO SCH (21:08)
[2018-03-31] MEDS: ALLOPURINOL 100 MG TABLET (FP) PO PRN (21:08)
[2018-03-31] MEDS: ZOLPIDEM TARTRATE 5 MG TABLET PO PRN (21:09)
[2018-04-01] MEDS ORDERED: ceFAZolin SODIUM 1 GM VIAL ONE ×2 (00:53→09:33)
[2018-04-01] MEDS ORDERED: DEXTROSE 5%-WATER - 50 ML IVPB ONE ×2 (00:53→09:33)
[2018-04-01] MEDS: CEFAZOLIN 1 GM in DEXTROSE 5%-WATER - 50 ML IVPB SCH ×3 (01:39→17:58)
[2018-04-01] MEDS ORDERED: METOLAZONE 5 MG TABLET PO ONE (05:30)
[2018-04-01] MEDS: INSULIN SLIDING SCALE (NOVOLOG) 1 VIAL SQ SCH ×4 (06:02→23:36)
[2018-04-01] MEDS: FUROSEMIDE 100 MG/10 ML INJECTABLE VIAL IVPB SCH ×2 (06:24→14:09)
[2018-04-01] MEDS: glipiZIDE 5 MG TABLET (FP) PO SCH (06:25)
[2018-04-01 06:35] LABS: BASO % 0.4 % (0-2.0); EOS % 1.2 % (0-4.5); HEMATOCRIT 38.4 % (35.4-49); HEMOGLOBIN 12.3 GM/dL (11.7-16.9); LYMPH % 13.1 % (8-40); MCH 27.4 pg (25.7-33.7); MCHC 32.1 g/dl (32.0-35.9); MEAN CELL VOLUME 85.4 fl (80-96); MEAN PLT VOLUME 7.7 fl (7.5-11.1); MONO % 7.9 % (3.8-10.2); NEUT % 77.4 % (42.8-82.8); PLATELET COUNT 257 K/MM3 (134-434); RDW 17.6 % (11.9-15.9); WHITE BLOOD COUNT 8.9 K/mm3 (4.0-10.0)
[2018-04-01 07:09] LABS: BILIRUBIN,TOTAL 0.6 mg/dL (0.2-1.0); BLOOD UREA NITROGEN 43 mg/dL (7-18); CALCIUM 9.2 mg/dL (8.5-10.1); CHLORIDE 100 mmol/L (98-107); CREATININE 1.4 mg/dL (0.55-1.3); GLUCOSE,RANDOM 140 mg/dL (74-106); SGOT/AST 10 U/L (15-37); SGPT/ALT 6 U/L (13-61); SODIUM 137 mmol/L (136-145); TOT PROT 6.6 g/dl (6.4-8.2)
[2018-04-01 07:12] LABS: ALK PHOS 64 U/L (45-117); ANION GAP 11 MMOL/L (8-16); CO2 26 mmol/L (21-32)
[2018-04-01] MEDS: TAMSULOSIN HCL 0.4 MG CAP PO SCH ×2 (08:24→23:47)
--- NOTE | 2018-04-01 08:38 | PN ---
Progress Note, Physician Chief Complaint: sob History of Present Illness: breathing is much better, urinated a lot with the diuretics yesterday. still sob if gets out of bed, washes up. no cp no palpit no leg swelling ex cigs - Current Medication List Current Medications: Active Medications Acetaminophen (Tylenol -) 650 mg PO Q6H PRN PRN Reason: FEVER Last Admin: 03/30/18 16:06 Dose: 650 mg Allopurinol (Zyloprim -) 100 mg PO DAILY [facility] Last Admin: 03/31/18 09:16 Dose: 100 mg Allopurinol (Zyloprim -) 100 mg PO HS PRN PRN Reason: PAIN Last Admin: 03/31/18 21:08 Dose: 100 mg Cholecalciferol (Vitamin D3 -) 2,000 unit PO DAILY [facility] Last Admin: 03/31/18 09:16 Dose: 2,000 unit Clopidogrel Bisulfate (Plavix -) 75 mg PO DAILY [facility] Last Admin: 03/31/18 09:16 Dose: 75 mg Docusate Sodium (Colace -) 100 mg PO Q12H PRN PRN Reason: CONSTIPATION Last Admin: 18 23:21 Dose: 100 mg Escitalopram Oxalate (Lexapro -) 10 mg PO DAILY [facility] Last Admin: 03/31/18 09:15 Dose: 10 mg Finasteride (Proscar -) 5 mg PO DAILY [facility] Last Admin: 03/31/18 09:16 Dose: 5 mg Furosemide (Lasix Injection -) 100 mg IVPB BID@0600,1400 [facility] Last Admin: 04/01/18 06:24 Dose: 100 mg Glipizide (Glucotrol -) 2.5 mg PO DAILY@0700 [facility] Last Admin: 04/01/18 06:25 Dose: 2.5 mg Cefazolin Sodium 1 gm/ (Dextrose) 50 mls @ 100 mls/hr IVPB Q8H-IV [facility] Last Admin: 04/01/18 01:39 Dose: 100 mls/hr Insulin Aspart (Novolog Vial Sliding Scale -) 1 vial SQ ACHS [facility]; Protocol Last Admin: 04/01/18 06:02 Dose: Not Given Metoprolol Succinate (Toprol Xl -) 25 mg PO DAILY [facility] Last Admin: 03/31/18 09:16 Dose: 25 mg Ondansetron HCl (Zofran Injection) 4 mg IVPUSH Q6H PRN PRN Reason: NAUSEA AND/OR VOMITING Rivaroxaban (Xarelto -) 15 mg PO DAILY@1800 [facility] Last Admin: 03/31/18 18:10 Dose: 15 mg Rosuvastatin Calcium (Crestor -) 10 mg PO HS [facility] Last Admin: 03/31/18 21:08 Dose: 10 mg Tamsulosin HCl (Flomax -) 0.4 mg PO BID@0830,2200 [facility] Last Admin: 04/01/18 08:24 Dose: 0.4 mg Zolpidem Tartrate (Ambien -) 5 mg PO HS PRN PRN Reason: INSOMNIA Last Admin: 03/31/18 21:09 Dose: 5 mg - Objective Vital Signs: Vital Signs Temperature 97.7 F 04/01/18 06:00 Pulse Rate 104 H 04/01/18 06:00 Respiratory Rate 19 04/01/18 06:00 Blood Pressure 106/67 04/01/18 06:00 O2 Sat by Pulse Oximetry (%) 92 L 03/31/18 21:00 Constitutional: Yes: No Distress, Calm Eyes: No: Sclera Icterus HENT: No: Nasal Congestion Cardiovascular: Yes: Regular Rate and Rhythm, JVD, S1, S2, Other (PMI non diplaced). No: Gallop, Murmur Respiratory: Yes: CTA Bilaterally, Rales (faint at bases). No: Accessory Muscle Use, Wheezes Gastrointestinal: Yes: Normal Bowel Sounds, Soft. No: Tenderness Musculoskeletal: Yes: Other (No kyphosis) Extremities: No: Cyanosis Edema: No Integumentary: No: Jaundice Neurological: Yes: Alert, Oriented (x3) Psychiatric: No: Agitated Labs: CBC, BMP 04/01/18 06:00 04/01/18 06:00 Assessment/Plan echo with definity 07/2017 dilated LV, EF 20-25%, with apical AK, HK of inf and lat [place], grade II diastolic dysfunction, cath 04/2017 MLM 80-90% with severe calc, pLAD SKIRT MAKER fills with collat from LCX and RCA. EF 15% dyskinetic apex, s/p LM PCI tele: sinus. NSVT run 13 beats, 6 beats acute on chronic systolic HF s/p ICD - admitting symptoms concerning for CHF exacerbation, BNP 8000 - diuresed with lasix 80 iv bid earlier this admit, no standing wts done then. - changed to torsemide 80 mg BID (home dose), then eventually changed to torsemide 80 qd which he is currently on - med dosing has been limited by low bp--spirono and losartan from home were held here. metoprolol dose reduced. - has had progressively worsening SOB here, wt above last known wt from one year ago (180-181 lbs here, vs 173 in 04/01). - CXR remains congested. - hence, pt is volume overloaded and requires intensification of diuresis. - 03/30: resumed lasix 80 iv bid. - 03/31: I/O (had curtis in) = 130/2150 (pt confirms very little po fluids). wt up 181 to 183 lbs. renal fxn stable. remains very sob and volume overloaded. - pt states her urinated about 300 cc after this morning's lasix 80 iv dose. will repeat lasix now 80 iv, with metolazone. to receive lasix tid today - 04/01: UOP 2L yesterday. wt down 183 to 180. renal fxn stable today. will repeat lasix 100 bid with metolazone today. - continue low dose bb (change tartrate to succinate for proven LV dysfunction benefits), bp tolerating - do not suspect he is low-output clinically, doubt he will require inotropes for diuresis. - resume ARB +/- spironolactone later, once pt well diuresed and can reassess bp VTach: - probable NSVT on tele. - cont metoprolol (dose limited by low bp) - fluid status optimization as doing - K/Mag > 4/2 CAD s/p LM stent 04/2017 - cont statin, metoprolol. resume plavix post op when ok by pos troponin -borderline trop elevation with flat trend and nl ck, not c/w acs afib - restarted on metoprolol 25 mg BID with improved rates, up titrate as tolerated however has had low BP - resume xarelto when ok per opinion PACO on CKD - baseline creatin in 1.4 from office 12/31 - initial PACO here ? cardiorenal, ? obstructive - curtis placed, renal ultrasound, no obstruction - creatinine stable at baseline
[2018-04-01] MEDS: ALLOPURINOL 100 MG TABLET (FP) PO SCH (09:35)
[2018-04-01] MEDS: FINASTERIDE 5 MG TABLET (FP) PO SCH (09:35)
[2018-04-01] MEDS: CHOLECALCIFEROL (VITAMIN D3) 1,000 UNIT TABLET (FP) PO SCH (09:35)
[2018-04-01] MEDS: metoPROLOL SUCCINATE 25 MG TAB.SR.24H (FP) PO SCH (09:35)
[2018-04-01] MEDS: CLOPIDOGREL BISULFATE 75 MG TABLET (FP) PO SCH (09:35)
[2018-04-01] MEDS: ESCITALOPRAM OXALATE 10 MG TABLET (FP) PO SCH (09:36)
--- NOTE | 2018-04-01 09:53 | PN ---
Progress Note, Physician History of Present Illness: Pt breathing bw=maricruz since on IV LAsix, wants to keep it going Pt w/o CP, palpitations, abd pain, N, V. pt is urinating well, urine is pinkinsh. - Current Medication List Current Medications: Active Medications Acetaminophen (Tylenol -) 650 mg PO Q6H PRN PRN Reason: FEVER Last Admin: 03/30/18 16:06 Dose: 650 mg Allopurinol (Zyloprim -) 100 mg PO DAILY [facility] Last Admin: 04/01/18 09:35 Dose: 100 mg Allopurinol (Zyloprim -) 100 mg PO HS PRN PRN Reason: PAIN Last Admin: 03/31/18 21:08 Dose: 100 mg Cholecalciferol (Vitamin D3 -) 2,000 unit PO DAILY [facility] Last Admin: 04/01/18 09:35 Dose: 2,000 unit Clopidogrel Bisulfate (Plavix -) 75 mg PO DAILY [facility] Last Admin: 04/01/18 09:35 Dose: 75 mg Docusate Sodium (Colace -) 100 mg PO Q12H PRN PRN Reason: CONSTIPATION Last Admin: 18 23:21 Dose: 100 mg Escitalopram Oxalate (Lexapro -) 10 mg PO DAILY [facility] Last Admin: 04/01/18 09:36 Dose: 10 mg Finasteride (Proscar -) 5 mg PO DAILY [facility] Last Admin: 04/01/18 09:35 Dose: 5 mg Furosemide (Lasix Injection -) 100 mg IVPB BID@0600,1400 [facility] Last Admin: 04/01/18 06:24 Dose: 100 mg Glipizide (Glucotrol -) 2.5 mg PO DAILY@0700 [facility] Last Admin: 04/01/18 06:25 Dose: 2.5 mg Cefazolin Sodium 1 gm/ (Dextrose) 50 mls @ 100 mls/hr IVPB Q8H-IV [facility] Last Admin: 04/01/18 09:35 Dose: 100 mls/hr Insulin Aspart (Novolog Vial Sliding Scale -) 1 vial SQ ACHS [facility]; Protocol Last Admin: 04/01/18 06:02 Dose: Not Given Metoprolol Succinate (Toprol Xl -) 25 mg PO DAILY [facility] Last Admin: 04/01/18 09:35 Dose: 25 mg Ondansetron HCl (Zofran Injection) 4 mg IVPUSH Q6H PRN PRN Reason: NAUSEA AND/OR VOMITING Rivaroxaban (Xarelto -) 15 mg PO DAILY@1800 [facility] Last Admin: 03/31/18 18:10 Dose: 15 mg Rosuvastatin Calcium (Crestor -) 10 mg PO HS [facility] Last Admin: 03/31/18 21:08 Dose: 10 mg Tamsulosin HCl (Flomax -) 0.4 mg PO BID@0830,2200 [facility] Last Admin: 04/01/18 08:24 Dose: 0.4 mg Zolpidem Tartrate (Ambien -) 5 mg PO HS PRN PRN Reason: INSOMNIA Last Admin: 03/31/18 21:09 Dose: 5 mg - Objective Vital Signs: Vital Signs Temperature 97.3 F L 04/01/18 09:30 Pulse Rate 105 H 04/01/18 09:30 Respiratory Rate 20 04/01/18 09:30 Blood Pressure 105/46 04/01/18 09:30 O2 Sat by Pulse Oximetry (%) 92 L 04/01/18 09:00 Constitutional: Yes: No Distress, Calm Cardiovascular: Yes: Regular Rate and Rhythm, S1, S2 Respiratory: Yes: Regular, CTA Bilaterally (ecxcept crackles at bases) Gastrointestinal: Yes: Normal Bowel Sounds, Soft. No: Tenderness Edema: No Neurological: Yes: Alert, Oriented Labs: CBC, BMP 04/01/18 06:00 04/01/18 06:00 Problem List - Problems (1) Acute systolic CHF (congestive heart failure) Code(s): I50.21 - ACUTE SYSTOLIC (CONGESTIVE) HEART FAILURE (2) Elevated troponin I level Code(s): R74.8 - ABNORMAL LEVELS OF OTHER SERUM ENZYMES (3) Hypotension Code(s): I95.9 - HYPOTENSION, UNSPECIFIED (4) PACO (acute kidney injury) Code(s): N17.9 - ACUTE KIDNEY FAILURE, UNSPECIFIED (5) CRF (chronic renal failure) Code(s): N18.9 - CHRONIC KIDNEY DISEASE, UNSPECIFIED (6) Hypercholesteremia Code(s): E78.00 - PURE HYPERCHOLESTEROLEMIA, UNSPECIFIED (7) Hypertension Code(s): I10 - ESSENTIAL (PRIMARY) HYPERTENSION (8) Pleural effusion Code(s): J90 - PLEURAL EFFUSION, NOT ELSEWHERE CLASSIFIED (9) CAD (coronary artery disease) Code(s): I25.10 - ATHSCL HEART DISEASE OF [place] CORONARY ARTERY W/O ANG PCTRS (10) AICD (automatic cardioverter/defibrillator) present Code(s): Z95.810 - PRESENCE OF AUTOMATIC (IMPLANTABLE) CARDIAC DEFIBRILLATOR (11) PAF (paroxysmal atrial fibrillation) Code(s): I48.0 - PAROXYSMAL ATRIAL FIBRILLATION (12) Urinary retention Code(s): R33.9 - RETENTION OF URINE, UNSPECIFIED (13) Hematuria Code(s): R31.9 - HEMATURIA, UNSPECIFIED Assessment/Plan S/p TUVP, POD#5; Holt was removed, urinating well. Pt is back on Lasix IVP BID, breathing is improving Pt on Xarelto and Plavix. To f/u with if pt pt still needs antbx. Admitted to ICU, transferred to Telemetry. Serial CE -stable; CE were found to be elevated in the settings of PACO and CHF ( probable demand ischemia) ICU/CCM, Cardio, Renal, consults are appreciated. Home med on hold at admission: Losartan, Spironolactone, Torsemide, Metformin. BGM with Novolog coverage. Pt on Glipizide Pt is tolerating Metoprolol; pt's blood presure is improved. Pt would benefit of ACEI or ARB; can be restarted as tolerated. AM labs. Pt's case was d/w pt's nurse.
--- NOTE | 2018-04-01 10:37 | PN ---
Progress Note, Physician History of Present Illness: PULMONARY ALERT,DYSPNEIC AT REST,DRY COUGH,-CP - Current Medication List Current Medications: Active Medications Acetaminophen (Tylenol -) 650 mg PO Q6H PRN PRN Reason: FEVER Last Admin: 03/30/18 16:06 Dose: 650 mg Allopurinol (Zyloprim -) 100 mg PO DAILY [facility] Last Admin: 04/01/18 09:35 Dose: 100 mg Allopurinol (Zyloprim -) 100 mg PO HS PRN PRN Reason: PAIN Last Admin: 03/31/18 21:08 Dose: 100 mg Cholecalciferol (Vitamin D3 -) 2,000 unit PO DAILY [facility] Last Admin: 04/01/18 09:35 Dose: 2,000 unit Clopidogrel Bisulfate (Plavix -) 75 mg PO DAILY [facility] Last Admin: 04/01/18 09:35 Dose: 75 mg Docusate Sodium (Colace -) 100 mg PO Q12H PRN PRN Reason: CONSTIPATION Last Admin: 03/29/18 23:21 Dose: 100 mg Escitalopram Oxalate (Lexapro -) 10 mg PO DAILY [facility] Last Admin: 04/01/18 09:36 Dose: 10 mg Finasteride (Proscar -) 5 mg PO DAILY [facility] Last Admin: 04/01/18 09:35 Dose: 5 mg Furosemide (Lasix Injection -) 100 mg IVPB BID@0600,1400 [facility] Last Admin: 04/01/18 06:24 Dose: 100 mg Glipizide (Glucotrol -) 2.5 mg PO DAILY@0700 [facility] Last Admin: 04/01/18 06:25 Dose: 2.5 mg Cefazolin Sodium 1 gm/ (Dextrose) 50 mls @ 100 mls/hr IVPB Q8H-IV [facility] Last Admin: 04/01/18 09:35 Dose: 100 mls/hr Insulin Aspart (Novolog Vial Sliding Scale -) 1 vial SQ ACHS [facility]; Protocol Last Admin: 04/01/18 06:02 Dose: Not Given Metoprolol Succinate (Toprol Xl -) 25 mg PO DAILY [facility] Last Admin: 04/01/18 09:35 Dose: 25 mg Ondansetron HCl (Zofran Injection) 4 mg IVPUSH Q6H PRN PRN Reason: NAUSEA AND/OR VOMITING Potassium Chloride (Potassium Chloride Oral Liquid) 40 meq PO BID [facility] Stop: 04/01/18 22:01 Rivaroxaban (Xarelto -) 15 mg PO DAILY@1800 [facility] Last Admin: 03/31/18 18:10 Dose: 15 mg Rosuvastatin Calcium (Crestor -) 10 mg PO HS [facility] Last Admin: 03/31/18 21:08 Dose: 10 mg Tamsulosin HCl (Flomax -) 0.4 mg PO BID@0830,2200 [facility] Last Admin: 04/01/18 08:24 Dose: 0.4 mg Zolpidem Tartrate (Ambien -) 5 mg PO HS PRN PRN Reason: INSOMNIA Last Admin: 03/31/18 21:09 Dose: 5 mg - Objective Vital Signs: Vital Signs Temperature 97.3 F L 04/01/18 09:30 Pulse Rate 105 H 04/01/18 09:30 Respiratory Rate 20 04/01/18 09:30 Blood Pressure 105/46 04/01/18 09:30 O2 Sat by Pulse Oximetry (%) 92 L 04/01/18 09:00 Constitutional: Yes: Well Nourished, Calm Eyes: Yes: WNL HENT: Yes: WNL Neck: Yes: WNL Cardiovascular: Yes: Pulse Irregular, S1, S2 Respiratory: Yes: Rales (BIBASILAR RALES) Gastrointestinal: Yes: Normal Bowel Sounds, Soft Extremities: Yes: WNL Edema: No Labs: CBC, BMP 04/01/18 06:00 04/01/18 06:00 Problem List - Problems (1) AICD (automatic cardioverter/defibrillator) present Code(s): Z95.810 - PRESENCE OF AUTOMATIC (IMPLANTABLE) CARDIAC DEFIBRILLATOR (2) PACO (acute kidney injury) Code(s): N17.9 - ACUTE KIDNEY FAILURE, UNSPECIFIED (3) Acute systolic CHF (congestive heart failure) Code(s): I50.21 - ACUTE SYSTOLIC (CONGESTIVE) HEART FAILURE (4) CAD (coronary artery disease) Code(s): I25.10 - ATHSCL HEART DISEASE OF [place] CORONARY ARTERY W/O ANG PCTRS (5) Diabetes mellitus Code(s): E11.9 - TYPE 2 DIABETES MELLITUS WITHOUT COMPLICATIONS (6) Hypercholesteremia Code(s): E78.00 - PURE HYPERCHOLESTEROLEMIA, UNSPECIFIED (7) Elevated troponin I level Code(s): R74.8 - ABNORMAL LEVELS OF OTHER SERUM ENZYMES (8) Hematuria Code(s): R31.9 - HEMATURIA, UNSPECIFIED (9) Hypertension Code(s): I10 - ESSENTIAL (PRIMARY) HYPERTENSION Assessment/Plan IMP: Acute on Chronic Systolic Heart Failure Atrial Fibrillation CAD +Troponins likely Demand Ischemia Acute on Chronic Renal Failure HTN DM Hyperlipidemia Hematuria - lasix - monitor urine output, creatinine - daily weights - Incentive spirometry - rate controlled with Beta Mili - O2 to maintain saturation DR CÁRDENAS
[2018-04-01] MEDS: POTASSIUM CHLORIDE ORAL LIQUID 20 MEQ/15 ML PO SCH ×2 (11:15→23:31)
--- NOTE | 2018-04-01 11:23 | PN ---
Progress Note (short form) - Note Progress Note: Renal follow up for PACO Pt seen and examined at the bedside reports sob improved but laying flat and looks a little sob no cp, abd pain, N/V/D curtis discontinued and making urine, slighly red Vital Signs Temperature 97.3 F L 04/01/18 09:30 Pulse Rate 105 H 04/01/18 09:30 Respiratory Rate 20 04/01/18 09:30 Blood Pressure 105/46 04/01/18 09:30 O2 Sat by Pulse Oximetry (%) 92 L 04/01/18 09:00 Intake & Output 03/29/18 03/30/18 03/31/18 04/01/18 23:59 23:59 23:59 23:59 Intake Total 1560 130 780 645 Output Total 1650 2150 2009 140 Balance -90 -2020 -1230 -760 Weight 82.01 kg 82.1 kg 83.064 kg 81.76 kg NAD awake and alert RRR, No M/R + rales in lung raymond soft NT/ND no Le edema CBC, BMP 04/01/18 06:00 04/01/18 06:00 Current Medications Acetaminophen (Tylenol -) 650 mg PO Q6H PRN PRN Reason: FEVER Last Admin: 03/30/18 16:06 Dose: 650 mg Allopurinol (Zyloprim -) 100 mg PO DAILY [facility] Last Admin: 04/01/18 09:35 Dose: 100 mg Allopurinol (Zyloprim -) 100 mg PO HS PRN PRN Reason: PAIN Last Admin: 03/31/18 21:08 Dose: 100 mg Cholecalciferol (Vitamin D3 -) 2,000 unit PO DAILY [facility] Last Admin: 04/01/18 09:35 Dose: 2,000 unit Clopidogrel Bisulfate (Plavix -) 75 mg PO DAILY [facility] Last Admin: 04/01/18 09:35 Dose: 75 mg Docusate Sodium (Colace -) 100 mg PO Q12H PRN PRN Reason: CONSTIPATION Last Admin: 03/29/18 23:21 Dose: 100 mg Escitalopram Oxalate (Lexapro -) 10 mg PO DAILY [facility] Last Admin: 04/01/18 09:36 Dose: 10 mg Finasteride (Proscar -) 5 mg PO DAILY [facility] Last Admin: 04/01/18 09:35 Dose: 5 mg Furosemide (Lasix Injection -) 100 mg IVPB BID@0600,1400 [facility] Last Admin: 04/01/18 06:24 Dose: 100 mg Glipizide (Glucotrol -) 2.5 mg PO DAILY@0700 [facility] Last Admin: 04/01/18 06:25 Dose: 2.5 mg Cefazolin Sodium 1 gm/ (Dextrose) 50 mls @ 100 mls/hr IVPB Q8H-IV [facility] Last Admin: 04/01/18 09:35 Dose: 100 mls/hr Insulin Aspart (Novolog Vial Sliding Scale -) 1 vial SQ ACHS [facility]; Protocol Last Admin: 04/01/18 11:11 Dose: Not Given Metoprolol Succinate (Toprol Xl -) 25 mg PO DAILY [facility] Last Admin: 04/01/18 09:35 Dose: 25 mg Ondansetron HCl (Zofran Injection) 4 mg IVPUSH Q6H PRN PRN Reason: NAUSEA AND/OR VOMITING Potassium Chloride (Potassium Chloride Oral Liquid) 40 meq PO BID [facility] Stop: 04/01/18 22:01 Last Admin: 04/01/18 11:15 Dose: 40 meq Rivaroxaban (Xarelto -) 15 mg PO DAILY@1800 [facility] Last Admin: 03/31/18 18:10 Dose: 15 mg Rosuvastatin Calcium (Crestor -) 10 mg PO HS [facility] Last Admin: 03/31/18 21:08 Dose: 10 mg Tamsulosin HCl (Flomax -) 0.4 mg PO BID@0830,2200 [facility] Last Admin: 04/01/18 08:24 Dose: 0.4 mg Zolpidem Tartrate (Ambien -) 5 mg PO HS PRN PRN Reason: INSOMNIA Last Admin: 03/31/18 21:09 Dose: 5 mg 78 year old gentleman with Hx of CHF, Hypertension, HLD, DM who presented with SOB and admitted for CHF exacerbation with PACO. #PACO on ? 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
[2018-04-01] MEDS: RIVAROXABAN 15 MG TABLET PO SCH (17:58)
[2018-04-01] MEDS ORDERED: LORazepam 2 MG/ML SDV VIAL ONE (20:09)
[2018-04-01] MEDS ORDERED: INSULIN (NOVOLOG) ASPART 100 UNITS/ML 10ML VIAL ONE (22:55)
[2018-04-01] MEDS: CEPHALEXIN MONOHYDRATE 500 MG CAPSULE (UD) PO SCH (23:30)
[2018-04-01] MEDS: ROSUVASTATIN CA 10 MG TABLET (FP) PO SCH (23:30)
[2018-04-01] MEDS: ALLOPURINOL 100 MG TABLET (FP) PO PRN (23:40)
[2018-04-01] MEDS: ZOLPIDEM TARTRATE 5 MG TABLET PO PRN (23:40)
[2018-04-02] MEDS: CEPHALEXIN MONOHYDRATE 500 MG CAPSULE (UD) PO SCH ×3 (06:40→22:04)
[2018-04-02] MEDS: glipiZIDE 5 MG TABLET (FP) PO SCH (06:40)
[2018-04-02] MEDS: FUROSEMIDE 100 MG/10 ML INJECTABLE VIAL IVPB SCH ×2 (06:40→14:22)
[2018-04-02] MEDS: INSULIN SLIDING SCALE (NOVOLOG) 1 VIAL SQ SCH ×4 (06:48→22:05)
[2018-04-02] MEDS ORDERED: PT OWN MED DRAWER 7, Y5N ONE ×2 (06:59→17:28)
[2018-04-02 07:07] LABS: ANION GAP 10 MMOL/L (8-16); BLOOD UREA NITROGEN 50 mg/dL (7-18); CHLORIDE 100 mmol/L (98-107); CO2 27 mmol/L (21-32); CREATININE 1.5 mg/dL (0.55-1.3); GLUCOSE,RANDOM 149 mg/dL (74-106); POTASSIUM 4.2 mmol/L (3.5-5.1); SODIUM 137 mmol/L (136-145)
[2018-04-02] MEDS: TAMSULOSIN HCL 0.4 MG CAP PO SCH ×2 (08:24→22:04)
--- NOTE | 2018-04-02 09:19 | PN ---
Progress Note (short form) - Note Progress Note: cc: sob s:still has some dyspnea with walking, improving. no chest pain, palps, dizzy, lightheadedness ex cigs Current Medications Acetaminophen (Tylenol -) 650 mg PO Q6H PRN PRN Reason: FEVER Last Admin: 03/30/18 16:06 Dose: 650 mg Allopurinol (Zyloprim -) 100 mg PO DAILY [facility] Last Admin: 04/01/18 09:35 Dose: 100 mg Allopurinol (Zyloprim -) 100 mg PO HS PRN PRN Reason: PAIN Last Admin: 04/01/18 23:40 Dose: 100 mg Cephalexin HCl (Keflex -) 500 mg PO TID [facility] Last Admin: 04/02/18 06:40 Dose: 500 mg Cholecalciferol (Vitamin D3 -) 2,000 unit PO DAILY [facility] Last Admin: 04/01/18 09:35 Dose: 2,000 unit Clopidogrel Bisulfate (Plavix -) 75 mg PO DAILY [facility] Last Admin: 04/01/18 09:35 Dose: 75 mg Docusate Sodium (Colace -) 100 mg PO Q12H PRN PRN Reason: CONSTIPATION Last Admin: 03/29/18 23:21 Dose: 100 mg Escitalopram Oxalate (Lexapro -) 10 mg PO DAILY [facility] Last Admin: 04/01/18 09:36 Dose: 10 mg Finasteride (Proscar -) 5 mg PO DAILY [facility] Last Admin: 04/01/18 09:35 Dose: 5 mg Furosemide (Lasix Injection -) 100 mg IVPB BID@0600,1400 [facility] Last Admin: 04/02/18 06:40 Dose: 100 mg Glipizide (Glucotrol -) 2.5 mg PO DAILY@0700 [facility] Last Admin: 04/02/18 06:40 Dose: 2.5 mg Insulin Aspart (Novolog Vial Sliding Scale -) 1 vial SQ ACHS [facility]; Protocol Last Admin: 04/02/18 06:48 Dose: Not Given Metoprolol Succinate (Toprol Xl -) 25 mg PO DAILY [facility] Last Admin: 04/01/18 09:35 Dose: 25 mg Ondansetron HCl (Zofran Injection) 4 mg IVPUSH Q6H PRN PRN Reason: NAUSEA AND/OR VOMITING Rivaroxaban (Xarelto -) 15 mg PO DAILY@1800 [facility] Last Admin: 04/01/18 17:58 Dose: 15 mg Rosuvastatin Calcium (Crestor -) 10 mg PO HS [facility] Last Admin: 04/01/18 23:30 Dose: 10 mg Tamsulosin HCl (Flomax -) 0.4 mg PO BID@0830,2200 [facility] Last Admin: 04/02/18 08:24 Dose: 0.4 mg Zolpidem Tartrate (Ambien -) 5 mg PO HS PRN PRN Reason: INSOMNIA Last Admin: 04/01/18 23:40 Dose: 5 mg - Objective Vital Signs Period Temp Pulse Resp BP Sys/Eisenberg Pulse Ox Last 24 Hr 97.3 F-98.2 F 93-106 20-22 100-106/46-70 96 Constitutional: Yes: No Distress, Calm Eyes: No: Sclera Icterus HENT: No: Nasal Congestion Cardiovascular: Yes: Regular Rate and Rhythm, JVD, S1, S2, Other (PMI non diplaced). No: Gallop, Murmur Respiratory: Yes: CTA Bilaterally, Rales (faint at bases). No: Accessory Muscle Use, Wheezes Gastrointestinal: Yes: Normal Bowel Sounds, Soft. No: Tenderness Musculoskeletal: Yes: Other (No kyphosis) Extremities: No: Cyanosis Edema: No Integumentary: No: Jaundice Neurological: Yes: Alert, Oriented (x3) Psychiatric: No: Agitated Assessment/Plan echo with definity 07/2017 dilated LV, EF 20-25%, with apical AK, HK of inf and lat [place], grade II diastolic dysfunction, cath 04/2017 MLM 80-90% with severe calc, p[employer]AD [employer] fills with collat from LCX and RCA. EF 15% dyskinetic apex, s/p LM PCI tele: sinus tachycardia, PVCs acute on chronic systolic HF s/p ICD - admitting symptoms concerning for CHF exacerbation, BNP 8000 - diuresed with lasix 80 iv bid earlier this admit, no standing wts done then. - changed to torsemide 80 mg BID (home dose), then eventually changed to torsemide 80 qd which he is currently on - med dosing has been limited by low bp--spirono and losartan from home were held here. metoprolol dose reduced. - 03/30: resumed lasix 80 iv bid. - 9/16: I/O (had curtis in) = 130/2150, wt up 181 to 183 lbs. renal fxn stable. received metolazone, lasix 80 mg IV TID - 04/01: UOP 2L, wt down 183 to 180. renal fxn stable. lasix 100 bid with metolazone given, metoprolol changed to succinate - 04/02: symptoms improving, weight down 180->179 lbs, diuresing well. continue lasix 100 mg IV BID - do not suspect he is low-output clinically, doubt he will require inotropes for diuresis. - resume ARB +/- spironolactone later, once pt well diuresed and can reassess bp - continue metoprolol succinate 25 mg daily VTach: - probable NSVT on tele. - cont metoprolol (dose limited by low bp) - fluid status optimization as doing - K/Mag > 4/2 CAD s/p LM stent 04/2017 - cont statin, metoprolol, plavix pos troponin -borderline trop elevation with flat trend and nl ck, not c/w acs afib - restarted on metoprolol 25 mg BID with improved rates, up titrate as tolerated however has had low BP - cont Xarelto PACO on CKD - baseline creatin in 1.4 from office 12/31 - initial PACO here ? cardiorenal, ? obstructive - curtis placed, renal ultrasound, no obstruction - creatinine stable at baseline
[2018-04-02] MEDS: CHOLECALCIFEROL (VITAMIN D3) 1,000 UNIT TABLET (FP) PO SCH (09:28)
[2018-04-02] MEDS: metoPROLOL SUCCINATE 25 MG TAB.SR.24H (FP) PO SCH (09:29)
[2018-04-02] MEDS: CLOPIDOGREL BISULFATE 75 MG TABLET (FP) PO SCH (09:29)
[2018-04-02] MEDS: ALLOPURINOL 100 MG TABLET (FP) PO SCH (09:29)
[2018-04-02] MEDS: FINASTERIDE 5 MG TABLET (FP) PO SCH (09:29)
[2018-04-02] MEDS: ESCITALOPRAM OXALATE 10 MG TABLET (FP) PO SCH (09:30)
--- NOTE | 2018-04-02 13:18 | PN ---
Progress Note, Physician History of Present Illness: PULMONARY PT FEELING BETTER,LESS DYSPNEIC,-CP - Current Medication List Current Medications: Active Medications Acetaminophen (Tylenol -) 650 mg PO Q6H PRN PRN Reason: FEVER Last Admin: 03/30/18 16:06 Dose: 650 mg Allopurinol (Zyloprim -) 100 mg PO DAILY [facility] Last Admin: 04/02/18 09:29 Dose: 100 mg Allopurinol (Zyloprim -) 100 mg PO HS PRN PRN Reason: PAIN Last Admin: 04/01/18 23:40 Dose: 100 mg Cephalexin HCl (Keflex -) 500 mg PO TID [facility] Last Admin: 04/02/18 06:40 Dose: 500 mg Cholecalciferol (Vitamin D3 -) 2,000 unit PO DAILY [facility] Last Admin: 04/02/18 09:28 Dose: 2,000 unit Clopidogrel Bisulfate (Plavix -) 75 mg PO DAILY [facility] Last Admin: 04/02/18 09:29 Dose: 75 mg Docusate Sodium (Colace -) 100 mg PO Q12H PRN PRN Reason: CONSTIPATION Last Admin: 03/29/18 23:21 Dose: 100 mg Escitalopram Oxalate (Lexapro -) 10 mg PO DAILY [facility] Last Admin: 04/02/18 09:30 Dose: 10 mg Finasteride (Proscar -) 5 mg PO DAILY [facility] Last Admin: 04/02/18 09:29 Dose: 5 mg Furosemide (Lasix Injection -) 100 mg IVPB BID@0600,1400 [facility] Last Admin: 04/02/18 06:40 Dose: 100 mg Glipizide (Glucotrol -) 2.5 mg PO DAILY@0700 [facility] Last Admin: 04/02/18 06:40 Dose: 2.5 mg Insulin Aspart (Novolog Vial Sliding Scale -) 1 vial SQ ACHS [facility]; Protocol Last Admin: 04/02/18 11:26 Dose: Not Given Metoprolol Succinate (Toprol Xl -) 25 mg PO DAILY [facility] Last Admin: 04/02/18 09:29 Dose: 25 mg Ondansetron HCl (Zofran Injection) 4 mg IVPUSH Q6H PRN PRN Reason: NAUSEA AND/OR VOMITING Rivaroxaban (Xarelto -) 15 mg PO DAILY@1800 [facility] Last Admin: 04/01/18 17:58 Dose: 15 mg Rosuvastatin Calcium (Crestor -) 10 mg PO HS [facility] Last Admin: 04/01/18 23:30 Dose: 10 mg Tamsulosin HCl (Flomax -) 0.4 mg PO BID@0830,2200 [facility] Last Admin: 04/02/18 08:24 Dose: 0.4 mg Zolpidem Tartrate (Ambien -) 5 mg PO HS PRN PRN Reason: INSOMNIA Last Admin: 04/01/18 23:40 Dose: 5 mg - Objective Vital Signs: Vital Signs Temperature 97.3 F L 04/02/18 09:30 Pulse Rate 97 H 04/02/18 09:30 Respiratory Rate 20 04/02/18 09:30 Blood Pressure 112/43 04/02/18 09:30 O2 Sat by Pulse Oximetry (%) 96 04/01/18 21:00 Constitutional: Yes: Well Nourished, Calm Eyes: Yes: WNL HENT: Yes: WNL Neck: Yes: WNL Cardiovascular: Yes: Pulse Irregular, S1, S2 Respiratory: Yes: Rales (BIBASAILR RALES) Gastrointestinal: Yes: Normal Bowel Sounds, Soft Extremities: Yes: WNL Edema: No Labs: CBC, BMP 04/01/18 06:00 04/02/18 06:00 Problem List - Problems (1) AICD (automatic cardioverter/defibrillator) present Code(s): Z95.810 - PRESENCE OF AUTOMATIC (IMPLANTABLE) CARDIAC DEFIBRILLATOR (2) PACO (acute kidney injury) Code(s): N17.9 - ACUTE KIDNEY FAILURE, UNSPECIFIED (3) Acute systolic CHF (congestive heart failure) Code(s): I50.21 - ACUTE SYSTOLIC (CONGESTIVE) HEART FAILURE (4) CAD (coronary artery disease) Code(s): I25.10 - ATHSCL HEART DISEASE OF [place] CORONARY ARTERY W/O ANG PCTRS (5) Diabetes mellitus Code(s): E11.9 - TYPE 2 DIABETES MELLITUS WITHOUT COMPLICATIONS (6) Hypercholesteremia Code(s): E78.00 - PURE HYPERCHOLESTEROLEMIA, UNSPECIFIED (7) Elevated troponin I level Code(s): R74.8 - ABNORMAL LEVELS OF OTHER SERUM ENZYMES (8) Hematuria Code(s): R31.9 - HEMATURIA, UNSPECIFIED (9) Hypertension Code(s): I10 - ESSENTIAL (PRIMARY) HYPERTENSION Assessment/Plan IMP: Acute on Chronic Systolic Heart Failure Atrial Fibrillation CAD +Troponins likely Demand Ischemia Acute on Chronic Renal Failure HTN DM Hyperlipidemia Hematuria - continue lasix - monitor urine output, creatinine - daily weights - Incentive spirometry - rate controlled with Beta Mili - O2 to maintain saturation - chest x-ray am DR CÁRDENAS
--- NOTE | 2018-04-02 14:38 | PN ---
Progress Note (short form) - Note Progress Note: Renal follow up for PACO Pt seen and examined at the bedside sob is improved but still has mild ROJO no cp, abd pain, N/V/D urinating w/o catheter Vital Signs Temperature 97.4 F L 04/02/18 14:16 Pulse Rate 97 H 04/02/18 14:16 Respiratory Rate 16 04/02/18 14:16 Blood Pressure 97/68 04/02/18 14:16 O2 Sat by Pulse Oximetry (%) 96 04/01/18 21:00 Intake & Output 03/30/18 03/31/18 04/01/18 04/02/18 23:59 23:59 23:59 23:59 Intake Total 797 917 5491 750 Output Total 2149 2009 3394 1749 Balance -2019 -1230 -2118 -1000 Weight 82.1 kg 83.064 kg 81.76 kg 81.25 kg NAD awake and alert RRR, No M/R + rales in lung raymond soft NT/ND no Le edema CBC, BMP 04/01/18 06:00 04/02/18 06:00 Current Medications Acetaminophen (Tylenol -) 650 mg PO Q6H PRN PRN Reason: FEVER Last Admin: 03/30/18 16:06 Dose: 650 mg Allopurinol (Zyloprim -) 100 mg PO DAILY [facility] Last Admin: 04/02/18 09:29 Dose: 100 mg Allopurinol (Zyloprim -) 100 mg PO HS PRN PRN Reason: PAIN Last Admin: 04/01/18 23:40 Dose: 100 mg Cephalexin HCl (Keflex -) 500 mg PO TID [facility] Last Admin: 04/02/18 14:22 Dose: 500 mg Cholecalciferol (Vitamin D3 -) 2,000 unit PO DAILY [facility] Last Admin: 04/02/18 09:28 Dose: 2,000 unit Clopidogrel Bisulfate (Plavix -) 75 mg PO DAILY [facility] Last Admin: 04/02/18 09:29 Dose: 75 mg Docusate Sodium (Colace -) 100 mg PO Q12H PRN PRN Reason: CONSTIPATION Last Admin: 03/29/18 23:21 Dose: 100 mg Escitalopram Oxalate (Lexapro -) 10 mg PO DAILY [facility] Last Admin: 04/02/18 09:30 Dose: 10 mg Finasteride (Proscar -) 5 mg PO DAILY [facility] Last Admin: 04/02/18 09:29 Dose: 5 mg Furosemide (Lasix Injection -) 100 mg IVPB BID@0600,1400 [facility] Last Admin: 04/02/18 14:22 Dose: 100 mg Glipizide (Glucotrol -) 2.5 mg PO DAILY@0700 [facility] Last Admin: 04/02/18 06:40 Dose: 2.5 mg Insulin Aspart (Novolog Vial Sliding Scale -) 1 vial SQ ACHS [facility]; Protocol Last Admin: 04/02/18 11:26 Dose: Not Given Metoprolol Succinate (Toprol Xl -) 25 mg PO DAILY [facility] Last Admin: 04/02/18 09:29 Dose: 25 mg Ondansetron HCl (Zofran Injection) 4 mg IVPUSH Q6H PRN PRN Reason: NAUSEA AND/OR VOMITING Rivaroxaban (Xarelto -) 15 mg PO DAILY@1800 [facility] Last Admin: 04/01/18 17:58 Dose: 15 mg Rosuvastatin Calcium (Crestor -) 10 mg PO HS [facility] Last Admin: 04/01/18 23:30 Dose: 10 mg Tamsulosin HCl (Flomax -) 0.4 mg PO BID@0830,2200 [facility] Last Admin: 04/02/18 08:24 Dose: 0.4 mg Zolpidem Tartrate (Ambien -) 5 mg PO HS PRN PRN Reason: INSOMNIA Last Admin: 04/01/18 23:40 Dose: 5 mg 78 year old gentleman with Hx of CHF, Hypertension, HLD, DM who presented with SOB and admitted for CHF exacerbation with PACO. #PACO on ? 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
--- NOTE | 2018-04-02 16:30 | PN ---
Progress Note, Physician History of Present Illness: Pt breathing is better. Pt w/o CP, palpitations, abd pain, N, V. Pt still with pink color urine - Current Medication List Current Medications: Active Medications Acetaminophen (Tylenol -) 650 mg PO Q6H PRN PRN Reason: FEVER Last Admin: 03/30/18 16:06 Dose: 650 mg Allopurinol (Zyloprim -) 100 mg PO DAILY [facility] Last Admin: 04/02/18 09:29 Dose: 100 mg Allopurinol (Zyloprim -) 100 mg PO HS PRN PRN Reason: PAIN Last Admin: 04/01/18 23:40 Dose: 100 mg Cephalexin HCl (Keflex -) 500 mg PO TID [facility] Last Admin: 04/02/18 14:22 Dose: 500 mg Cholecalciferol (Vitamin D3 -) 2,000 unit PO DAILY [facility] Last Admin: 04/02/18 09:28 Dose: 2,000 unit Clopidogrel Bisulfate (Plavix -) 75 mg PO DAILY [facility] Last Admin: 04/02/18 09:29 Dose: 75 mg Docusate Sodium (Colace -) 100 mg PO Q12H PRN PRN Reason: CONSTIPATION Last Admin: 03/29/18 23:21 Dose: 100 mg Escitalopram Oxalate (Lexapro -) 10 mg PO DAILY [facility] Last Admin: 04/02/18 09:30 Dose: 10 mg Finasteride (Proscar -) 5 mg PO DAILY [facility] Last Admin: 04/02/18 09:29 Dose: 5 mg Furosemide (Lasix Injection -) 100 mg IVPB BID@0600,1400 [facility] Last Admin: 04/02/18 14:22 Dose: 100 mg Glipizide (Glucotrol -) 2.5 mg PO DAILY@0700 [facility] Last Admin: 04/02/18 06:40 Dose: 2.5 mg Insulin Aspart (Novolog Vial Sliding Scale -) 1 vial SQ ACHS [facility]; Protocol Last Admin: 04/02/18 11:26 Dose: Not Given Metoprolol Succinate (Toprol Xl -) 25 mg PO DAILY [facility] Last Admin: 04/02/18 09:29 Dose: 25 mg Ondansetron HCl (Zofran Injection) 4 mg IVPUSH Q6H PRN PRN Reason: NAUSEA AND/OR VOMITING Rivaroxaban (Xarelto -) 15 mg PO DAILY@1800 [facility] Last Admin: 04/01/18 17:58 Dose: 15 mg Rosuvastatin Calcium (Crestor -) 10 mg PO HS [facility] Last Admin: 04/01/18 23:30 Dose: 10 mg Tamsulosin HCl (Flomax -) 0.4 mg PO BID@0830,2200 [facility] Last Admin: 04/02/18 08:24 Dose: 0.4 mg Zolpidem Tartrate (Ambien -) 5 mg PO HS PRN PRN Reason: INSOMNIA Last Admin: 04/01/18 23:40 Dose: 5 mg - Objective Vital Signs: Vital Signs Temperature 97.4 F L 04/02/18 14:16 Pulse Rate 97 H 04/02/18 14:16 Respiratory Rate 16 04/02/18 14:16 Blood Pressure 97/68 04/02/18 14:16 O2 Sat by Pulse Oximetry (%) 96 04/02/18 09:00 Constitutional: Yes: No Distress, Calm Cardiovascular: Yes: Pulse Irregular, S1, S2 Respiratory: Yes: Regular, CTA Bilaterally, Rales (at bases) Gastrointestinal: Yes: Normal Bowel Sounds, Soft. No: Tenderness Edema: No Neurological: Yes: Alert, Oriented Labs: CBC, BMP 04/01/18 06:00 04/02/18 06:00 Problem List - Problems (1) Acute systolic CHF (congestive heart failure) Code(s): I50.21 - ACUTE SYSTOLIC (CONGESTIVE) HEART FAILURE (2) Elevated troponin I level Code(s): R74.8 - ABNORMAL LEVELS OF OTHER SERUM ENZYMES (3) Hypotension Code(s): I95.9 - HYPOTENSION, UNSPECIFIED (4) PACO (acute kidney injury) Code(s): N17.9 - ACUTE KIDNEY FAILURE, UNSPECIFIED (5) CRF (chronic renal failure) Code(s): N18.9 - CHRONIC KIDNEY DISEASE, UNSPECIFIED (6) Hypercholesteremia Code(s): E78.00 - PURE HYPERCHOLESTEROLEMIA, UNSPECIFIED (7) Hypertension Code(s): I10 - ESSENTIAL (PRIMARY) HYPERTENSION (8) Pleural effusion Code(s): J90 - PLEURAL EFFUSION, NOT ELSEWHERE CLASSIFIED (9) CAD (coronary artery disease) Code(s): I25.10 - ATHSCL HEART DISEASE OF [place] CORONARY ARTERY W/O ANG PCTRS (10) AICD (automatic cardioverter/defibrillator) present Code(s): Z95.810 - PRESENCE OF AUTOMATIC (IMPLANTABLE) CARDIAC DEFIBRILLATOR (11) PAF (paroxysmal atrial fibrillation) Code(s): I48.0 - PAROXYSMAL ATRIAL FIBRILLATION (12) Urinary retention Code(s): R33.9 - RETENTION OF URINE, UNSPECIFIED (13) Hematuria Code(s): R31.9 - HEMATURIA, UNSPECIFIED Assessment/Plan S/p TUVP, POD#6; Holt was removed, urinating well. Pt is back on Lasix IVP BID secondary to dyspnea/ CHF exacerbation; breathing is improving with IV Lasix; to monitor renal function (BUN trending up) Pt on Xarelto and Plavix. Pt was admitted to ICU, transferred to Telemetry. Serial CE -stable; CE were found to be elevated in the settings of PACO and CHF ( probable demand ischemia) ICU/CCM, Cardio, Renal, consults are appreciated. Home med on hold at admission: Losartan, Spironolactone, Torsemide, Metformin. Pt on Glipizide. BGM with Novolog coverage. Pt is tolerating Metoprolol; pt's blood presure is improved. Pt would benefit of ACEI or ARB; can be restarted as tolerated. AM labs. Pt's case was d/w pt's nurse.
[2018-04-02] MEDS: RIVAROXABAN 15 MG TABLET PO SCH (17:30)
[2018-04-02] MEDS: ROSUVASTATIN CA 10 MG TABLET (FP) PO SCH (22:04)
[2018-04-02] MEDS: ALLOPURINOL 100 MG TABLET (FP) PO PRN (22:04)
[2018-04-02] MEDS: ZOLPIDEM TARTRATE 5 MG TABLET PO PRN (22:04)
[2018-04-03] MEDS: CEPHALEXIN MONOHYDRATE 500 MG CAPSULE (UD) PO SCH ×3 (06:04→21:06)
[2018-04-03] MEDS: glipiZIDE 5 MG TABLET (FP) PO SCH (06:04)
[2018-04-03 06:31] LABS: HEMATOCRIT 38.6 % (35.4-49); HEMOGLOBIN 12.3 GM/dL (11.7-16.9); MCH 27.1 pg (25.7-33.7); MEAN CELL VOLUME 84.8 fl (80-96); MEAN PLT VOLUME 7.3 fl (7.5-11.1); PLATELET COUNT 258 K/MM3 (134-434); RBC 4.55 M/mm3 (4.00-5.60); RDW 17.4 % (11.9-15.9); WHITE BLOOD COUNT 9.9 K/mm3 (4.0-10.0)
[2018-04-03 07:20] LABS: ANION GAP 13 MMOL/L (8-16); BLOOD UREA NITROGEN 49 mg/dL (7-18); CALCIUM 9.7 mg/dL (8.5-10.1); CHLORIDE 99 mmol/L (98-107); CO2 26 mmol/L (21-32); GLUCOSE,RANDOM 130 mg/dL (74-106); POTASSIUM 3.6 mmol/L (3.5-5.1); SODIUM 138 mmol/L (136-145)
[2018-04-03 07:21] LABS: CREATININE 1.2 mg/dL (0.55-1.3)
[2018-04-03] MEDS: INSULIN SLIDING SCALE (NOVOLOG) 1 VIAL SQ SCH ×4 (07:30→21:06)
[2018-04-03] MEDS: FUROSEMIDE 100 MG/10 ML INJECTABLE VIAL IVPB SCH ×3 (07:30→15:35)
--- NOTE | 2018-04-03 09:03 | PN ---
Progress Note (short form) - Note Progress Note: cc: sob s:still has some dyspnea with walking to bathroom, improving. no chest pain, palps, dizzy, lightheadedness ex cigs Current Medications Acetaminophen (Tylenol -) 650 mg PO Q6H PRN PRN Reason: FEVER Last Admin: 03/30/18 16:06 Dose: 650 mg Allopurinol (Zyloprim -) 100 mg PO DAILY [facility] Last Admin: 04/02/18 09:29 Dose: 100 mg Allopurinol (Zyloprim -) 100 mg PO HS PRN PRN Reason: PAIN Last Admin: 04/02/18 22:04 Dose: 100 mg Cephalexin HCl (Keflex -) 500 mg PO TID [facility] Last Admin: 04/03/18 06:04 Dose: 500 mg Cholecalciferol (Vitamin D3 -) 2,000 unit PO DAILY [facility] Last Admin: 04/02/18 09:28 Dose: 2,000 unit Clopidogrel Bisulfate (Plavix -) 75 mg PO DAILY [facility] Last Admin: 04/02/18 09:29 Dose: 75 mg Docusate Sodium (Colace -) 100 mg PO Q12H PRN PRN Reason: CONSTIPATION Last Admin: 18 23:21 Dose: 100 mg Escitalopram Oxalate (Lexapro -) 10 mg PO DAILY [facility] Last Admin: 04/02/18 09:30 Dose: 10 mg Finasteride (Proscar -) 5 mg PO DAILY [facility] Last Admin: 04/02/18 09:29 Dose: 5 mg Furosemide (Lasix Injection -) 100 mg IVPB BID@0600,1400 [facility] Last Admin: 04/03/18 07:30 Dose: Not Given Glipizide (Glucotrol -) 2.5 mg PO DAILY@0700 [facility] Last Admin: 04/03/18 06:04 Dose: 2.5 mg Insulin Aspart (Novolog Vial Sliding Scale -) 1 vial SQ ACHS [facility]; Protocol Last Admin: 04/03/18 07:30 Dose: Not Given Metoprolol Succinate (Toprol Xl -) 25 mg PO DAILY [facility] Last Admin: 04/02/18 09:29 Dose: 25 mg Ondansetron HCl (Zofran Injection) 4 mg IVPUSH Q6H PRN PRN Reason: NAUSEA AND/OR VOMITING Rivaroxaban (Xarelto -) 15 mg PO DAILY@1800 [facility] Last Admin: 04/02/18 17:30 Dose: 15 mg Rosuvastatin Calcium (Crestor -) 10 mg PO HS [facility] Last Admin: 04/02/18 22:04 Dose: 10 mg Tamsulosin HCl (Flomax -) 0.4 mg PO BID@0830,2200 [facility] Last Admin: 04/02/18 22:04 Dose: 0.4 mg Zolpidem Tartrate (Ambien -) 5 mg PO HS PRN PRN Reason: INSOMNIA Last Admin: 04/02/18 22:04 Dose: 5 mg - Objective Vital Signs Period Temp Pulse Resp BP Sys/Eisenberg Pulse Ox Last 24 Hr 97.3 F-98 F 90-97 16-20 88-112/43-70 96 Constitutional: Yes: No Distress, Calm Eyes: No: Sclera Icterus HENT: No: Nasal Congestion Cardiovascular: Yes: Regular Rate and Rhythm, JVD, S1, S2, Other (PMI non diplaced). No: Gallop, Murmur Respiratory: Yes: CTA Bilaterally, Rales (faint at bases). No: Accessory Muscle Use, Wheezes Gastrointestinal: Yes: Normal Bowel Sounds, Soft. No: Tenderness Musculoskeletal: Yes: Other (No kyphosis) Extremities: No: Cyanosis Edema: No Integumentary: No: Jaundice Neurological: Yes: Alert, Oriented (x3) Psychiatric: No: Agitated Assessment/Plan echo with definity 07/2017 dilated LV, EF 20-25%, with apical AK, HK of inf and lat [place], grade II diastolic dysfunction, cath 04/2017 MLM 80-90% with severe calc, pLAD STAFFING AND SCHEDULING COORDINATOR fills with collat from LCX and RCA. EF 15% dyskinetic apex, s/p LM PCI tele: sinus tachycardia, PVCs acute on chronic systolic HF s/p ICD - admitting symptoms concerning for CHF exacerbation, BNP 8000 - diuresed with lasix 80 iv bid earlier this admit, no standing wts done then. - changed to torsemide 80 mg BID (home dose), then eventually changed to torsemide 80 qd which he is currently on - med dosing has been limited by low bp--spirono and losartan from home were held here. metoprolol dose reduced. - 03/30: resumed lasix 80 iv bid. - 03/31: I/O (had curtis in) = 130/2150, wt up 181 to 183 lbs. renal fxn stable. received metolazone, lasix 80 mg IV TID - 04/01: UOP 2L, wt down 183 to 180. renal fxn stable. lasix 100 bid with metolazone given, metoprolol changed to succinate - 04/02: symptoms improving, weight down 180->179 lbs, lasix 100 IV BID continued - 04/03: lasix held this AM due to hypotension, continue lasix 100 mg IV BID. BUN /Cr improving - resume ARB +/- spironolactone later, once pt well diuresed and can reassess bp - continue metoprolol succinate 25 mg daily VTach: - probable NSVT on tele. - cont metoprolol (dose limited by low bp) - fluid status optimization as doing - K/Mag > 4/2 CAD s/p LM stent 04/2017 - cont statin, metoprolol, plavix pos troponin -borderline trop elevation with flat trend and nl ck, not c/w acs afib - restarted on metoprolol 25 mg BID with improved rates, up titrate as tolerated however has had low BP - cont Xarelto PACO on CKD - baseline creatin in 1.4 from office 12/31 - initial PACO here ? cardiorenal, ? obstructive - curtis placed, renal ultrasound, no obstruction - creatinine stable at baseline
[2018-04-03] MEDS: ESCITALOPRAM OXALATE 10 MG TABLET (FP) PO SCH (09:12)
[2018-04-03] MEDS: CLOPIDOGREL BISULFATE 75 MG TABLET (FP) PO SCH (09:12)
[2018-04-03] MEDS: TAMSULOSIN HCL 0.4 MG CAP PO SCH ×2 (09:12→21:06)
[2018-04-03] MEDS: metoPROLOL SUCCINATE 25 MG TAB.SR.24H (FP) PO SCH (09:12)
[2018-04-03] MEDS: CHOLECALCIFEROL (VITAMIN D3) 1,000 UNIT TABLET (FP) PO SCH (09:13)
[2018-04-03] MEDS: ALLOPURINOL 100 MG TABLET (FP) PO SCH (09:13)
[2018-04-03] MEDS: FINASTERIDE 5 MG TABLET (FP) PO SCH (09:13)
--- NOTE | 2018-04-03 09:35 | PN ---
Progress Note (short form) - Note Progress Note: Urology Note: Patient s/p TUVP, curtis d/c Patient voiding well Pathology pending Urologically ok for Discharge
--- NOTE | 2018-04-03 11:36 | PN ---
Progress Note (short form) - Note Progress Note: OOB to chair. Breathing seems to be improving. Less SOB and ROJO, although not back to baseline. No acute events overnight. Intake & Output 03/31/18 04/01/18 04/02/18 04/03/18 23:59 23:59 23:59 23:59 Intake Total 780 1277 1650 650 Output Total 2009 3395 3000 750 Balance -1230 -2118 -1350 -100 Weight 183 lb 2 oz 180 lb 4 oz 179 lb 2 oz 177 lb 8 oz Last Vital Signs Temp Pulse Resp BP Pulse Ox 97.7 F 91 H 20 94/68 96 04/03/18 10:00 04/03/18 10:00 04/03/18 10:00 04/03/18 10:00 04/02/18 22:00 Active Medications Acetaminophen (Tylenol -) 650 mg PO Q6H PRN PRN Reason: FEVER Last Admin: 03/30/18 16:06 Dose: 650 mg Allopurinol (Zyloprim -) 100 mg PO DAILY [facility] Last Admin: 04/03/18 09:13 Dose: 100 mg Allopurinol (Zyloprim -) 100 mg PO HS PRN PRN Reason: PAIN Last Admin: 04/02/18 22:04 Dose: 100 mg Cephalexin HCl (Keflex -) 500 mg PO TID [facility] Last Admin: 04/03/18 06:04 Dose: 500 mg Cholecalciferol (Vitamin D3 -) 2,000 unit PO DAILY [facility] Last Admin: 04/03/18 09:13 Dose: 2,000 unit Clopidogrel Bisulfate (Plavix -) 75 mg PO DAILY [facility] Last Admin: 04/03/18 09:12 Dose: 75 mg Docusate Sodium (Colace -) 100 mg PO Q12H PRN PRN Reason: CONSTIPATION Last Admin: 03/29/18 23:21 Dose: 100 mg Escitalopram Oxalate (Lexapro -) 10 mg PO DAILY [facility] Last Admin: 04/03/18 09:12 Dose: 10 mg Finasteride (Proscar -) 5 mg PO DAILY [facility] Last Admin: 04/03/18 09:13 Dose: 5 mg Furosemide (Lasix Injection -) 100 mg IVPB BID@0600,1400 [facility] Last Admin: 04/03/18 07:30 Dose: Not Given Glipizide (Glucotrol -) 2.5 mg PO DAILY@0700 [facility] Last Admin: 04/03/18 06:04 Dose: 2.5 mg Insulin Aspart (Novolog Vial Sliding Scale -) 1 vial SQ ACHS [facility]; Protocol Last Admin: 04/03/18 07:30 Dose: Not Given Metoprolol Succinate (Toprol Xl -) 25 mg PO DAILY [facility] Last Admin: 04/03/18 09:12 Dose: 25 mg Ondansetron HCl (Zofran Injection) 4 mg IVPUSH Q6H PRN PRN Reason: NAUSEA AND/OR VOMITING Rivaroxaban (Xarelto -) 15 mg PO DAILY@1800 [facility] Last Admin: 04/02/18 17:30 Dose: 15 mg Rosuvastatin Calcium (Crestor -) 10 mg PO HS [facility] Last Admin: 04/02/18 22:04 Dose: 10 mg Tamsulosin HCl (Flomax -) 0.4 mg PO BID@0830,2200 [facility] Last Admin: 04/03/18 09:12 Dose: 0.4 mg Zolpidem Tartrate (Ambien -) 5 mg PO HS PRN PRN Reason: INSOMNIA Last Admin: 04/02/18 22:04 Dose: 5 mg Constitutional: Yes: NAD Eyes: Yes: WNL HENT: Yes: WNL Neck: Yes: WNL Cardiovascular: Yes: Pulse Irregular, S1, S2 Respiratory: Yes: few basilar rales Gastrointestinal: Yes: Normal Bowel Sounds, Soft Extremities: Yes: WNL Edema: No Labs: Laboratory Results - last 24 hr 04/02/18 04/02/18 04/02/18 11:25 16:42 20:49 WBC RBC Hgb Hct MCV MCH MCHC RDW Plt Count MPV Sodium Potassium Chloride Carbon Dioxide Anion Gap BUN Creatinine Creat Clearance w eGFR POC Glucometer 138 182 150 Random Glucose Calcium 04/03/18 04/03/18 04/03/18 05:34 06:00 06:00 WBC 9.9 RBC 4.55 Hgb 12.3 Hct 38.6 MCV 84.8 MCH 27.1 MCHC 32.0 RDW 17.4 H Plt Count 258 MPV 7.3 L Sodium 138 Potassium 3.6 Chloride 99 Carbon Dioxide 26 Anion Gap 13 BUN 49 H Creatinine 1.2 Creat Clearance w eGFR 58.86 POC Glucometer 128 Random Glucose 130 H Calcium 9.7 Problem List - Problems (1) AICD (automatic cardioverter/defibrillator) present Code(s): Z95.810 - PRESENCE OF AUTOMATIC (IMPLANTABLE) CARDIAC DEFIBRILLATOR (2) PACO (acute kidney injury) Code(s): N17.9 - ACUTE KIDNEY FAILURE, UNSPECIFIED (3) Acute systolic CHF (congestive heart failure) Code(s): I50.21 - ACUTE SYSTOLIC (CONGESTIVE) HEART FAILURE (4) CAD (coronary artery disease) Code(s): I25.10 - ATHSCL HEART DISEASE OF [place] CORONARY ARTERY W/O ANG PCTRS (5) Diabetes mellitus Code(s): E11.9 - TYPE 2 DIABETES MELLITUS WITHOUT COMPLICATIONS (6) Hypercholesteremia Code(s): E78.00 - PURE HYPERCHOLESTEROLEMIA, UNSPECIFIED (7) Elevated troponin I level Code(s): R74.8 - ABNORMAL LEVELS OF OTHER SERUM ENZYMES (8) Hematuria Code(s): R31.9 - HEMATURIA, UNSPECIFIED (9) Hypertension Code(s): I10 - ESSENTIAL (PRIMARY) HYPERTENSION Assessment/Plan Acute on Chronic Systolic Heart Failure Atrial Fibrillation CAD +Troponins likely Demand Ischemia Acute on Chronic Renal Failure HTN DM Hyperlipidemia Hematuria - IV Lasix - monitor urine output, creatinine - daily weights - Incentive spirometry - O2 to maintain saturation Dr Dalton
--- NOTE | 2018-04-03 14:24 | PN ---
Progress Note, Physician Chief Complaint: in bed occasional SOB on high doses IV lasix; urinates OK; BP borderline low no dizziness - Current Medication List Current Medications: Active Medications Acetaminophen (Tylenol -) 650 mg PO Q6H PRN PRN Reason: FEVER Last Admin: 03/30/18 16:06 Dose: 650 mg Allopurinol (Zyloprim -) 100 mg PO DAILY [facility] Last Admin: 04/03/18 09:13 Dose: 100 mg Allopurinol (Zyloprim -) 100 mg PO HS PRN PRN Reason: PAIN Last Admin: 04/02/18 22:04 Dose: 100 mg Cephalexin HCl (Keflex -) 500 mg PO TID [facility] Last Admin: 04/03/18 06:04 Dose: 500 mg Cholecalciferol (Vitamin D3 -) 2,000 unit PO DAILY [facility] Last Admin: 04/03/18 09:13 Dose: 2,000 unit Clopidogrel Bisulfate (Plavix -) 75 mg PO DAILY [facility] Last Admin: 04/03/18 09:12 Dose: 75 mg Docusate Sodium (Colace -) 100 mg PO Q12H PRN PRN Reason: CONSTIPATION Last Admin: 03/29/18 23:21 Dose: 100 mg Escitalopram Oxalate (Lexapro -) 10 mg PO DAILY [facility] Last Admin: 04/03/18 09:12 Dose: 10 mg Finasteride (Proscar -) 5 mg PO DAILY [facility] Last Admin: 04/03/18 09:13 Dose: 5 mg Furosemide (Lasix Injection -) 100 mg IVPB BID@0600,1400 [facility] Last Admin: 04/03/18 07:30 Dose: Not Given Glipizide (Glucotrol -) 2.5 mg PO DAILY@0700 [facility] Last Admin: 04/03/18 06:04 Dose: 2.5 mg Insulin Aspart (Novolog Vial Sliding Scale -) 1 vial SQ [facility]; Protocol Last Admin: 04/03/18 12:00 Dose: Not Given Metoprolol Succinate (Toprol Xl -) 25 mg PO DAILY [facility] Last Admin: 04/03/18 09:12 Dose: 25 mg Ondansetron HCl (Zofran Injection) 4 mg IVPUSH Q6H PRN PRN Reason: NAUSEA AND/OR VOMITING Rivaroxaban (Xarelto -) 15 mg PO DAILY@1800 [facility] Last Admin: 04/02/18 17:30 Dose: 15 mg Rosuvastatin Calcium (Crestor -) 10 mg PO HS [facility] Last Admin: 04/02/18 22:04 Dose: 10 mg Tamsulosin HCl (Flomax -) 0.4 mg PO BID@0830,2200 [facility] Last Admin: 04/03/18 09:12 Dose: 0.4 mg Zolpidem Tartrate (Ambien -) 5 mg PO HS PRN PRN Reason: INSOMNIA Last Admin: 04/02/18 22:04 Dose: 5 mg - Objective Vital Signs: Vital Signs Temperature 97.3 F L 04/03/18 10:00 Pulse Rate 95 H 04/03/18 10:00 Respiratory Rate 20 04/03/18 10:00 Blood Pressure 102/62 04/03/18 10:00 O2 Sat by Pulse Oximetry (%) 96 04/02/18 22:00 Constitutional: Yes: No Distress, Calm Eyes: Yes: Conjunctiva Clear HENT: Yes: Atraumatic Neck: Yes: Supple Cardiovascular: Yes: Regular Rate and Rhythm Respiratory: Yes: Diminished Gastrointestinal: Yes: Soft. No: Tenderness Genitourinary: No: CVA Tenderness - Left, CVA Tenderness - Right Musculoskeletal: No: Joint Stiffness, Joint Swelling Extremities: No: Cold, Cool Edema: No Integumentary: No: Rash, Venous Stasis Changes Neurological: Yes: WNL, Alert, Oriented ...Motor Strength: WNL Psychiatric: Yes: WNL, Alert, Oriented. No: Agitated, Suicidal Ideation Labs: CBC, BMP 04/03/18 06:00 04/03/18 06:00 - ....Imaging Other: Report Reviewed Assessment/Plan 78 YOM admitted with Acute on Chronic Systolic Heart Failure, Atrial Fibrillation, CAD Acute on Chronic Renal Failure, BPH urinary obstruction, s/p TURP HTN, DM, Hyperlipidemia, Hematuria Acute heart failure exac fluid overload; borderline low BP; - continue iv lasix for CHF/SOB - monitor urine output, creatinine - keep net negative - daily weights; falls PFX dw pt - rate controlled - , cardio and pulm f/u - O2 to keep SpO2 >90% f/w pt and staff
[2018-04-03] MEDS ORDERED: PT OWN MED DRAWER 7, Y5N ONE (18:53)
[2018-04-03] MEDS: RIVAROXABAN 15 MG TABLET PO SCH (18:57)
[2018-04-03] MEDS: ROSUVASTATIN CA 10 MG TABLET (FP) PO SCH (21:06)
[2018-04-03] MEDS: ALLOPURINOL 100 MG TABLET (FP) PO PRN (21:06)
[2018-04-03] MEDS: ZOLPIDEM TARTRATE 5 MG TABLET PO PRN (21:06)
[2018-04-04] MEDS: CEPHALEXIN MONOHYDRATE 500 MG CAPSULE (UD) PO SCH ×3 (06:26→21:52)
[2018-04-04] MEDS: glipiZIDE 5 MG TABLET (FP) PO SCH (06:26)
[2018-04-04] MEDS: INSULIN SLIDING SCALE (NOVOLOG) 1 VIAL SQ SCH ×4 (06:26→21:44)
[2018-04-04] MEDS: FUROSEMIDE 100 MG/10 ML INJECTABLE VIAL IVPB SCH ×2 (07:39→13:32)
[2018-04-04] MEDS: FINASTERIDE 5 MG TABLET (FP) PO SCH (09:00)
[2018-04-04] MEDS: CLOPIDOGREL BISULFATE 75 MG TABLET (FP) PO SCH (09:01)
[2018-04-04] MEDS: metoPROLOL SUCCINATE 25 MG TAB.SR.24H (FP) PO SCH (09:01)
[2018-04-04] MEDS: ALLOPURINOL 100 MG TABLET (FP) PO SCH (09:01)
[2018-04-04] MEDS: TAMSULOSIN HCL 0.4 MG CAP PO SCH ×2 (09:01→21:52)
[2018-04-04] MEDS: CHOLECALCIFEROL (VITAMIN D3) 1,000 UNIT TABLET (FP) PO SCH (09:01)
[2018-04-04] MEDS: ESCITALOPRAM OXALATE 10 MG TABLET (FP) PO SCH (09:02)
--- NOTE | 2018-04-04 10:53 | PN ---
Progress Note (short form) - Note Progress Note: cc: sob s:still has some dyspnea with walking to bathroom, improving. no chest pain, palps, dizzy, lightheadedness ex cigs Current Medications Generic Name Dose Route Start Last Admin Trade Name Freq PRN Reason Stop Dose Admin Acetaminophen 650 mg 03/29/18 18:35 03/30/18 16:06 Tylenol - PO 650 mg Q6H PRN Administration FEVER Allopurinol 100 mg 03/28/18 10:00 04/04/18 09:01 Zyloprim - PO 100 mg DAILY [facility] Administration Allopurinol 100 mg 03/28/18 17:57 04/03/18 21:06 Zyloprim - PO 100 mg HS PRN Administration PAIN Cephalexin HCl 500 mg 04/01/18 22:00 04/04/18 06:26 Keflex - PO 500 mg TID [facility] Administration Cholecalciferol 2,000 unit 03/28/18 10:00 04/04/18 09:01 Vitamin D3 - PO 2,000 unit DAILY [facility] Administration Clopidogrel Bisulfate 75 mg 03/30/18 10:00 04/04/18 09:01 Plavix - PO 75 mg DAILY [facility] Administration Docusate Sodium 100 mg 03/27/18 16:05 03/29/18 23:21 Colace - PO 100 mg Q12H PRN Administration CONSTIPATION Escitalopram Oxalate 10 mg 03/28/18 10:00 04/04/18 09:02 Lexapro - PO 10 mg DAILY [facility] Administration Finasteride 5 mg 03/28/18 10:00 04/04/18 09:00 Proscar - PO 5 mg DAILY [facility] Administration Furosemide 100 mg 04/01/18 06:00 04/04/18 07:39 Lasix Injection - IVPB 100 mg BID@0600,1400 [facility] Administration Glipizide 2.5 mg 03/28/18 07:00 04/04/18 06:26 Glucotrol - PO 2.5 mg DAILY@0700 [facility] Administration Insulin Aspart 1 vial 03/27/18 16:30 04/04/18 06:26 Novolog Vial Sliding Scale - SQ Not Given ACHS [facility] Protocol Metoprolol Succinate 25 mg 03/31/18 10:00 04/04/18 09:01 Toprol Xl - PO 25 mg DAILY [facility] Administration Ondansetron HCl 4 mg 03/27/18 15:04 Zofran Injection IVPUSH Q6H PRN NAUSEA AND/OR VOMITING Rivaroxaban 15 mg 03/29/18 18:00 04/03/18 18:57 Xarelto - PO Not Given DAILY@1800 [facility] Rosuvastatin Calcium 10 mg 03/27/18 22:00 04/03/18 21:06 Crestor - PO 10 mg HS [facility] Administration Tamsulosin HCl 0.4 mg 03/27/18 22:00 04/04/18 09:01 Flomax - PO 0.4 mg BID@0830,2200 [facility] Administration Zolpidem Tartrate 5 mg 03/31/18 19:53 04/03/18 21:06 Ambien - PO 5 mg HS PRN Administration INSOMNIA - Objective Vital Signs Period Temp Pulse Resp BP Sys/Eisenberg Pulse Ox Last 24 Hr 97.4 F-98.1 F 91-98 18-20 97-102/56-68 96 Constitutional: Yes: No Distress, Calm Eyes: No: Sclera Icterus HENT: No: Nasal Congestion Cardiovascular: Yes: Regular Rate and Rhythm, JVD, S1, S2, Other (PMI non diplaced). No: Gallop, Murmur Respiratory: Yes: CTA Bilaterally, Rales (faint at bases). No: Accessory Muscle Use, Wheezes Gastrointestinal: Yes: Normal Bowel Sounds, Soft. 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 EF 15% dyskinetic apex, s/p LM PCI tele: sinus tachycardia, PVCs acute on chronic systolic HF s/p ICD - admitting symptoms concerning for CHF exacerbation, BNP 8000 - diuresed with lasix 80 iv bid earlier this admit, no standing wts done then. - changed to torsemide 80 mg BID (home dose), then eventually changed to torsemide 80 qd which he is currently on - med dosing has been limited by low bp--spirono and losartan from home were held here. metoprolol dose reduced. - 03/30: resumed lasix 80 iv bid. - 03/31: I/O (had curtis in) = 130/2150, wt up 181 to 183 lbs. renal fxn stable. received metolazone, lasix 80 mg IV TID - 04/01: UOP 2L, wt down 183 to 180. renal fxn stable. lasix 100 bid with metolazone given, metoprolol changed to succinate - 04/02: symptoms improving, weight down 180->179 lbs, lasix 100 IV BID continued - 04/03: lasix held this AM due to hypotension, continue lasix 100 mg IV BID. BUN /Cr improving - 04/04: cr stable, sob better, wt down. cont iv lasix for now. - resume ARB +/- spironolactone later, once pt well diuresed and can reassess bp - continue metoprolol succinate 25 mg daily VTach: - probable NSVT on tele. - cont metoprolol (dose limited by low bp) - fluid status optimization as doing - K/Mag > 4/2 CAD s/p LM stent 04/2017 - cont statin, metoprolol, plavix pos troponin -borderline trop elevation with flat trend and nl ck, not c/w acs afib - restarted on metoprolol 25 mg BID with improved rates, up titrate as tolerated however has had low BP - cont Xarelto PACO on CKD - baseline creatin in 1.4 from office 12/31 - initial PACO here ? cardiorenal, ? obstructive - curtis placed, renal ultrasound, no obstruction - creatinine stable at baseline
--- NOTE | 2018-04-04 11:59 | PN ---
Progress Note, Physician History of Present Illness: pulmonary alert,feeling better,sob significantly improved - Current Medication List Current Medications: Active Medications Acetaminophen (Tylenol -) 650 mg PO Q6H PRN PRN Reason: FEVER Last Admin: 03/30/18 16:06 Dose: 650 mg Allopurinol (Zyloprim -) 100 mg PO DAILY [facility] Last Admin: 04/04/18 09:01 Dose: 100 mg Allopurinol (Zyloprim -) 100 mg PO HS PRN PRN Reason: PAIN Last Admin: 04/03/18 21:06 Dose: 100 mg Cephalexin HCl (Keflex -) 500 mg PO TID [facility] Last Admin: 04/04/18 06:26 Dose: 500 mg Cholecalciferol (Vitamin D3 -) 2,000 unit PO DAILY [facility] Last Admin: 04/04/18 09:01 Dose: 2,000 unit Clopidogrel Bisulfate (Plavix -) 75 mg PO DAILY [facility] Last Admin: 04/04/18 09:01 Dose: 75 mg Docusate Sodium (Colace -) 100 mg PO Q12H PRN PRN Reason: CONSTIPATION Last Admin: 03/29/18 23:21 Dose: 100 mg Escitalopram Oxalate (Lexapro -) 10 mg PO DAILY [facility] Last Admin: 04/04/18 09:02 Dose: 10 mg Finasteride (Proscar -) 5 mg PO DAILY [facility] Last Admin: 04/04/18 09:00 Dose: 5 mg Furosemide (Lasix Injection -) 100 mg IVPB BID@0600,1400 [facility] Last Admin: 04/04/18 07:39 Dose: 100 mg Glipizide (Glucotrol -) 2.5 mg PO DAILY@0700 [facility] Last Admin: 04/04/18 06:26 Dose: 2.5 mg Insulin Aspart (Novolog Vial Sliding Scale -) 1 vial SQ ACHS [facility]; Protocol Last Admin: 04/04/18 11:31 Dose: Not Given Metoprolol Succinate (Toprol Xl -) 25 mg PO DAILY [facility] Last Admin: 04/04/18 09:01 Dose: 25 mg Ondansetron HCl (Zofran Injection) 4 mg IVPUSH Q6H PRN PRN Reason: NAUSEA AND/OR VOMITING Rivaroxaban (Xarelto -) 15 mg PO DAILY@1800 [facility] Last Admin: 04/03/18 18:57 Dose: Not Given Rosuvastatin Calcium (Crestor -) 10 mg PO HS [facility] Last Admin: 04/03/18 21:06 Dose: 10 mg Tamsulosin HCl (Flomax -) 0.4 mg PO BID@0830,2200 [facility] Last Admin: 04/04/18 09:01 Dose: 0.4 mg Zolpidem Tartrate (Ambien -) 5 mg PO HS PRN PRN Reason: INSOMNIA Last Admin: 04/03/18 21:06 Dose: 5 mg - Objective Vital Signs: Vital Signs Temperature 97.6 F 04/04/18 09:02 Pulse Rate 95 H 04/04/18 09:02 Respiratory Rate 20 04/04/18 09:02 Blood Pressure 101/65 04/04/18 09:02 O2 Sat by Pulse Oximetry (%) 96 04/03/18 21:00 Constitutional: Yes: Well Nourished, Calm Eyes: Yes: WNL HENT: Yes: WNL Neck: Yes: WNL Cardiovascular: Yes: Pulse Irregular, S1, S2 Respiratory: Yes: Rales (bibasailr rales) Gastrointestinal: Yes: Normal Bowel Sounds, Soft Extremities: Yes: WNL Edema: No Labs: CBC, BMP - ....Imaging Chest X-ray: Report Reviewed, Image Reviewed (shira congestion) Problem List - Problems (1) AICD (automatic cardioverter/defibrillator) present Code(s): Z95.810 - PRESENCE OF AUTOMATIC (IMPLANTABLE) CARDIAC DEFIBRILLATOR (2) PACO (acute kidney injury) Code(s): N17.9 - ACUTE KIDNEY FAILURE, UNSPECIFIED (3) Acute systolic CHF (congestive heart failure) Code(s): I50.21 - ACUTE SYSTOLIC (CONGESTIVE) HEART FAILURE (4) CAD (coronary artery disease) Code(s): I25.10 - ATHSCL HEART DISEASE OF [place] CORONARY ARTERY W/O ANG PCTRS (5) Diabetes mellitus Code(s): E11.9 - TYPE 2 DIABETES MELLITUS WITHOUT COMPLICATIONS (6) Hypercholesteremia Code(s): E78.00 - PURE HYPERCHOLESTEROLEMIA, UNSPECIFIED (7) Elevated troponin I level Code(s): R74.8 - ABNORMAL LEVELS OF OTHER SERUM ENZYMES (8) Hematuria Code(s): R31.9 - HEMATURIA, UNSPECIFIED (9) Hypertension Code(s): I10 - ESSENTIAL (PRIMARY) HYPERTENSION Assessment/Plan IMP: Acute on Chronic Systolic Heart Failure improving Atrial Fibrillation CAD +Troponins likely Demand Ischemia Acute on Chronic Renal Failure HTN DM Hyperlipidemia Hematuria - continue lasix - monitor urine output, creatinine - daily weights - Incentive spirometry - rate controlled with Beta Mili - O2 to maintain saturation DR CÁRDENAS
--- NOTE | 2018-04-04 12:24 | PN ---
Progress Note, Physician Chief Complaint: in bed feels better labs OK no new c/o; in better spirits consults noted and d/w pt. - Current Medication List Current Medications: Active Medications Acetaminophen (Tylenol -) 650 mg PO Q6H PRN PRN Reason: FEVER Last Admin: 03/30/18 16:06 Dose: 650 mg Allopurinol (Zyloprim -) 100 mg PO DAILY [facility] Last Admin: 04/04/18 09:01 Dose: 100 mg Allopurinol (Zyloprim -) 100 mg PO HS PRN PRN Reason: PAIN Last Admin: 04/03/18 21:06 Dose: 100 mg Cephalexin HCl (Keflex -) 500 mg PO TID [facility] Last Admin: 04/04/18 06:26 Dose: 500 mg Cholecalciferol (Vitamin D3 -) 2,000 unit PO DAILY [facility] Last Admin: 04/04/18 09:01 Dose: 2,000 unit Clopidogrel Bisulfate (Plavix -) 75 mg PO DAILY [facility] Last Admin: 04/04/18 09:01 Dose: 75 mg Docusate Sodium (Colace -) 100 mg PO Q12H PRN PRN Reason: CONSTIPATION Last Admin: 18 23:21 Dose: 100 mg Escitalopram Oxalate (Lexapro -) 10 mg PO DAILY [facility] Last Admin: 04/04/18 09:02 Dose: 10 mg Finasteride (Proscar -) 5 mg PO DAILY [facility] Last Admin: 04/04/18 09:00 Dose: 5 mg Furosemide (Lasix Injection -) 100 mg IVPB BID@0600,1400 [facility] Last Admin: 04/04/18 07:39 Dose: 100 mg Glipizide (Glucotrol -) 2.5 mg PO DAILY@0700 [facility] Last Admin: 04/04/18 06:26 Dose: 2.5 mg Insulin Aspart (Novolog Vial Sliding Scale -) 1 vial SQ ACHS [facility]; Protocol Last Admin: 04/04/18 11:31 Dose: Not Given Metoprolol Succinate (Toprol Xl -) 25 mg PO DAILY [facility] Last Admin: 04/04/18 09:01 Dose: 25 mg Ondansetron HCl (Zofran Injection) 4 mg IVPUSH Q6H PRN PRN Reason: NAUSEA AND/OR VOMITING Rivaroxaban (Xarelto -) 15 mg PO DAILY@1800 [facility] Last Admin: 04/03/18 18:57 Dose: Not Given Rosuvastatin Calcium (Crestor -) 10 mg PO HS [facility] Last Admin: 04/03/18 21:06 Dose: 10 mg Tamsulosin HCl (Flomax -) 0.4 mg PO BID@0830,2200 [facility] Last Admin: 04/04/18 09:01 Dose: 0.4 mg Zolpidem Tartrate (Ambien -) 5 mg PO HS PRN PRN Reason: INSOMNIA Last Admin: 04/03/18 21:06 Dose: 5 mg - Objective Vital Signs: Vital Signs Temperature 97.6 F 04/04/18 09:02 Pulse Rate 95 H 04/04/18 09:02 Respiratory Rate 20 04/04/18 09:02 Blood Pressure 101/65 04/04/18 09:02 O2 Sat by Pulse Oximetry (%) 96 04/03/18 21:00 Constitutional: Yes: No Distress, Calm Eyes: Yes: Conjunctiva Clear HENT: Yes: Atraumatic Neck: Yes: Supple Cardiovascular: Yes: Regular Rate and Rhythm Respiratory: Yes: CTA Bilaterally Gastrointestinal: Yes: Soft. No: Tenderness Genitourinary: No: CVA Tenderness - Left, CVA Tenderness - Right Musculoskeletal: No: Joint Stiffness, Joint Swelling Extremities: No: Cold, Cool, Cyanosis Edema: No Integumentary: No: Rash, Venous Stasis Changes Neurological: Yes: WNL, Alert, Oriented ...Motor Strength: WNL Psychiatric: Yes: WNL, Alert, Oriented. No: Agitated, Suicidal Ideation Labs: CBC, BMP 04/03/18 06:00 04/03/18 06:00 - ....Imaging Other: Report Reviewed Assessment/Plan 78 YOM admitted with Acute on Chronic Systolic Heart Failure, Atrial Fibrillation, CAD Acute on Chronic Renal Failure, BPH urinary obstruction, s/p TURP HTN, DM, Hyperlipidemia, Hematuria Acute heart failure exac fluid overload; borderline low BP; - iv lasix for CHF/SOB - monitor urine output, creatinine - keep net negative - daily weights; falls PFX dw pt - rate controlled - cardio and pulm f/u - O2 to keep SpO2 >90% f/w pt and staff
[2018-04-04] MEDS ORDERED: PT OWN MED DRAWER 7, Y5N ONE ×2 (16:32→17:28)
[2018-04-04] MEDS: RIVAROXABAN 15 MG TABLET PO SCH (17:33)
[2018-04-04] MEDS: ROSUVASTATIN CA 10 MG TABLET (FP) PO SCH (21:52)
[2018-04-04] MEDS: ZOLPIDEM TARTRATE 5 MG TABLET PO PRN (21:55)
[2018-04-04] MEDS: ALLOPURINOL 100 MG TABLET (FP) PO PRN (21:57)
[2018-04-05] MEDS: FUROSEMIDE 100 MG/10 ML INJECTABLE VIAL IVPB SCH ×2 (05:58→13:46)
[2018-04-05] MEDS: CEPHALEXIN MONOHYDRATE 500 MG CAPSULE (UD) PO SCH ×3 (05:58→21:46)
[2018-04-05] MEDS: INSULIN SLIDING SCALE (NOVOLOG) 1 VIAL SQ SCH ×4 (06:14→21:47)
[2018-04-05] MEDS: glipiZIDE 5 MG TABLET (FP) PO SCH (06:48)
[2018-04-05] MEDS: TAMSULOSIN HCL 0.4 MG CAP PO SCH ×2 (08:48→21:46)
[2018-04-05] MEDS: metoPROLOL SUCCINATE 25 MG TAB.SR.24H (FP) PO SCH (09:00)
[2018-04-05] MEDS: FINASTERIDE 5 MG TABLET (FP) PO SCH (09:00)
[2018-04-05] MEDS: ESCITALOPRAM OXALATE 10 MG TABLET (FP) PO SCH (09:00)
[2018-04-05] MEDS: ALLOPURINOL 100 MG TABLET (FP) PO SCH (09:00)
[2018-04-05] MEDS: CHOLECALCIFEROL (VITAMIN D3) 1,000 UNIT TABLET (FP) PO SCH (09:00)
[2018-04-05] MEDS: CLOPIDOGREL BISULFATE 75 MG TABLET (FP) PO SCH (09:00)
--- NOTE | 2018-04-05 09:51 | PN ---
Progress Note, Physician Chief Complaint: OOB to chair, no SOB, on iv lasix; had significant urinary bladder residuum postvoid (>400 cc x 2 per nurse) recalled; pt states he urinates OK no pain. - Current Medication List Current Medications: Active Medications Acetaminophen (Tylenol -) 650 mg PO Q6H PRN PRN Reason: FEVER Last Admin: 03/30/18 16:06 Dose: 650 mg Allopurinol (Zyloprim -) 100 mg PO DAILY [facility] Last Admin: 04/05/18 09:00 Dose: 100 mg Allopurinol (Zyloprim -) 100 mg PO HS PRN PRN Reason: PAIN Last Admin: 04/04/18 21:57 Dose: 100 mg Cephalexin HCl (Keflex -) 500 mg PO TID [facility] Last Admin: 04/05/18 05:58 Dose: 500 mg Cholecalciferol (Vitamin D3 -) 2,000 unit PO DAILY [facility] Last Admin: 04/05/18 09:00 Dose: 2,000 unit Clopidogrel Bisulfate (Plavix -) 75 mg PO DAILY [facility] Last Admin: 04/05/18 09:00 Dose: 75 mg Docusate Sodium (Colace -) 100 mg PO Q12H PRN PRN Reason: CONSTIPATION Last Admin: 03/29/18 23:21 Dose: 100 mg Escitalopram Oxalate (Lexapro -) 10 mg PO DAILY [facility] Last Admin: 04/05/18 09:00 Dose: 10 mg Finasteride (Proscar -) 5 mg PO DAILY [facility] Last Admin: 04/05/18 09:00 Dose: 5 mg Furosemide (Lasix Injection -) 100 mg IVPB BID@0600,1400 [facility] Last Admin: 04/05/18 05:58 Dose: 100 mg Glipizide (Glucotrol -) 2.5 mg PO DAILY@0700 [facility] Last Admin: 04/05/18 06:48 Dose: 2.5 mg Insulin Aspart (Novolog Vial Sliding Scale -) 1 vial SQ [facility]; Protocol Last Admin: 04/05/18 06:14 Dose: Not Given Metoprolol Succinate (Toprol Xl -) 25 mg PO DAILY [facility] Last Admin: 04/05/18 09:00 Dose: 25 mg Ondansetron HCl (Zofran Injection) 4 mg IVPUSH Q6H PRN PRN Reason: NAUSEA AND/OR VOMITING Rivaroxaban (Xarelto -) 15 mg PO DAILY@1800 [facility] Last Admin: 04/04/18 17:33 Dose: 15 mg Rosuvastatin Calcium (Crestor -) 10 mg PO HS [facility] Last Admin: 04/04/18 21:52 Dose: 10 mg Tamsulosin HCl (Flomax -) 0.4 mg PO BID@0830,2200 [facility] Last Admin: 04/05/18 08:48 Dose: 0.4 mg Zolpidem Tartrate (Ambien -) 5 mg PO HS PRN PRN Reason: INSOMNIA Last Admin: 04/04/18 21:55 Dose: 5 mg - Objective Vital Signs: Vital Signs Temperature 99.7 F H 04/05/18 06:00 Pulse Rate 93 H 04/05/18 06:00 Respiratory Rate 04/05/18 06:00 Blood Pressure 95/62 04/05/18 06:00 O2 Sat by Pulse Oximetry (%) 97 04/04/18 21:00 Constitutional: Yes: No Distress, Calm Eyes: Yes: Conjunctiva Clear HENT: Yes: Atraumatic Neck: Yes: Supple Cardiovascular: Yes: Regular Rate and Rhythm Respiratory: Yes: CTA Bilaterally Gastrointestinal: Yes: Soft. No: Tenderness Genitourinary: No: CVA Tenderness - Left, CVA Tenderness - Right Musculoskeletal: No: Joint Stiffness, Joint Swelling Extremities: No: Cold, Cool, Cyanosis Edema: No Integumentary: No: Rash, Venous Stasis Changes Neurological: Yes: WNL, Alert, Oriented ...Motor Strength: WNL Psychiatric: Yes: WNL, Alert, Oriented. No: Agitated, Suicidal Ideation Labs: CBC, BMP 04/03/18 06:00 04/03/18 06:00 - ....Imaging Other: Report Reviewed Assessment/Plan 78 YOM admitted with Acute on Chronic Systolic Heart Failure, Atrial Fibrillation, CAD Acute on Chronic Renal Failure, BPH urinary obstruction, s/p TURP HTN, DM, Hyperlipidemia, Hematuria Acute heart failure exac fluid overload; borderline low BP; Postvoid urinary retention - recurrent - iv lasix for CHF/SOB, f/u labs - reeval - monitor urine output, creatinine - keep net negative - daily weights; falls PFX dw pt - rate controlled - cardio and pulm f/u - O2 to keep SpO2 >90% falls PFX d/w pt d/w pt and staff
--- NOTE | 2018-04-05 10:38 | PN ---
Progress Note (short form) - Note Progress Note: cc: sob s: no sob chest pain, palps, dizzy, lightheadedness ex cigs Current Medications Generic Name Dose Route Start Last Admin Trade Name Freq PRN Reason Stop Dose Admin Acetaminophen 650 mg 03/29/18 18:35 03/30/18 16:06 Tylenol - PO 650 mg Q6H PRN Administration FEVER Allopurinol 100 mg 03/28/18 10:00 04/05/18 09:00 Zyloprim - PO 100 mg DAILY [facility] Administration Allopurinol 100 mg 03/28/18 17:57 04/04/18 21:57 Zyloprim - PO 100 mg HS PRN Administration PAIN Cephalexin HCl 500 mg 04/01/18 22:00 04/05/18 05:58 Keflex - PO 500 mg TID [facility] Administration Cholecalciferol 2,000 unit 03/28/18 10:00 04/05/18 09:00 Vitamin D3 - PO 2,000 unit DAILY [facility] Administration Clopidogrel Bisulfate 75 mg 03/30/18 10:00 04/05/18 09:00 Plavix - PO 75 mg DAILY [facility] Administration Docusate Sodium 100 mg 03/27/18 16:05 03/29/18 23:21 Colace - PO 100 mg Q12H PRN Administration CONSTIPATION Escitalopram Oxalate 10 mg 03/28/18 10:00 04/05/18 09:00 Lexapro - PO 10 mg DAILY [facility] Administration Finasteride 5 mg 03/28/18 10:00 04/05/18 09:00 Proscar - PO 5 mg DAILY [facility] Administration Furosemide 100 mg 04/01/18 06:00 04/05/18 05:58 Lasix Injection - IVPB 100 mg BID@0600,1400 [facility] Administration Glipizide 2.5 mg 03/28/18 07:00 04/05/18 06:48 Glucotrol - PO 2.5 mg DAILY@0700 [facility] Administration Insulin Aspart 1 vial 03/27/18 16:30 04/05/18 06:14 Novolog Vial Sliding Scale - SQ Not Given ACHS [facility] Protocol Metoprolol Succinate 25 mg 03/31/18 10:00 04/05/18 09:00 Toprol Xl - PO 25 mg DAILY [facility] Administration Ondansetron HCl 4 mg 03/27/18 15:04 Zofran Injection IVPUSH Q6H PRN NAUSEA AND/OR VOMITING Rivaroxaban 15 mg 03/29/18 18:00 04/04/18 17:33 Xarelto - PO 15 mg DAILY@1800 [facility] Administration Rosuvastatin Calcium 10 mg 03/27/18 22:00 04/04/18 21:52 Crestor - PO 10 mg HS [facility] Administration Tamsulosin HCl 0.4 mg 03/27/18 22:00 04/05/18 08:48 Flomax - PO 0.4 mg BID@0830,2200 [facility] Administration Zolpidem Tartrate 5 mg 03/31/18 19:53 04/04/18 21:55 Ambien - PO 5 mg HS PRN Administration INSOMNIA - Objective Vital Signs Period Temp Pulse Resp BP Sys/Eisenberg Pulse Ox Last 24 Hr 98.0 F-99.7 F 93-111 16-19 95-102/54-66 97 Constitutional: Yes: No Distress, Calm Eyes: No: Sclera Icterus HENT: No: Nasal Congestion Cardiovascular: Yes: Regular Rate and Rhythm, JVD, S1, S2, Other (PMI non diplaced). No: Gallop, Murmur Respiratory: Yes: CTA Bilaterally. No: Accessory Muscle Use, Wheezes Gastrointestinal: Yes: Normal Bowel Sounds, Soft. 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 EF 15% dyskinetic apex, s/p LM PCI tele: sinus tachycardia, PVCs, nsvt 6 beats acute on chronic systolic HF s/p ICD - admitting symptoms concerning for CHF exacerbation, BNP 8000 - diuresed with lasix 80 iv bid earlier this admit, no standing wts done then. - changed to torsemide 80 mg BID (home dose), then eventually changed to torsemide 80 qd which he is currently on - med dosing has been limited by low bp--spirono and losartan from home were held here. metoprolol dose reduced. - 03/30: resumed lasix 80 iv bid. - 03/31: I/O (had curtis in) = 130/2150, wt up 181 to 183 lbs. renal fxn stable. received metolazone, lasix 80 mg IV TID - 04/01: UOP 2L, wt down 183 to 180. renal fxn stable. lasix 100 bid with metolazone given, metoprolol changed to succinate - 04/02: symptoms improving, weight down 180->179 lbs, lasix 100 IV BID continued - 04/03: lasix held this AM due to hypotension, continue lasix 100 mg IV BID. BUN /Cr improving - 04/04-: cr stable, sob better, wt down. cont iv lasix for now. - resume ARB +/- spironolactone later, once pt well diuresed and can reassess bp - continue metoprolol succinate 25 mg daily VTach: - brief NSVT on tele. - cont metoprolol (dose limited by low bp) - fluid status optimization as doing - K/Mag > 4/2 CAD s/p LM stent 04/2017 - cont statin, metoprolol, plavix pos troponin -borderline trop elevation with flat trend and nl ck, not c/w acs afib - restarted on metoprolol 25 mg BID with improved rates, up titrate as tolerated however has had low BP - cont Xarelto PACO on CKD - baseline creatin in 1.4 from office 12/31 - initial PACO here ? cardiorenal, ? obstructive - curtis placed, renal ultrasound, no obstruction - creatinine stable at baseline
--- NOTE | 2018-04-05 11:03 | PN ---
Progress Note (short form) - Note Progress Note: Renal follow up for PACO Pt seen and examined at the bedside feels better sob improving making a lot of urine no cp, abd pain, N/V/D no blood in urine Vital Signs Temperature 99.7 F H 04/05/18 06:00 Pulse Rate 93 H 04/05/18 06:00 Respiratory Rate 19 04/05/18 06:00 Blood Pressure 95/62 04/05/18 06:00 O2 Sat by Pulse Oximetry (%) 97 04/04/18 21:00 Intake & Output 04/02/18 04/03/18 04/04/18 04/05/18 23:59 23:59 23:59 23:59 Intake Total 1650 1500 1230 260 Output Total 3000 1950 2875 350 Balance -1350 -450 -1645 -90 Weight 81.25 kg 80.513 kg 80.104 kg NAD awake and alert RRR, No M/R + rales in lung raymond soft NT/ND no Le edema todays labs pending Current Medications Acetaminophen (Tylenol -) 650 mg PO Q6H PRN PRN Reason: FEVER Last Admin: 03/30/18 16:06 Dose: 650 mg Allopurinol (Zyloprim -) 100 mg PO DAILY [facility] Last Admin: 04/05/18 09:00 Dose: 100 mg Allopurinol (Zyloprim -) 100 mg PO HS PRN PRN Reason: PAIN Last Admin: 04/04/18 21:57 Dose: 100 mg Cephalexin HCl (Keflex -) 500 mg PO TID [facility] Last Admin: 04/05/18 05:58 Dose: 500 mg Cholecalciferol (Vitamin D3 -) 2,000 unit PO DAILY [facility] Last Admin: 04/05/18 09:00 Dose: 2,000 unit Clopidogrel Bisulfate (Plavix -) 75 mg PO DAILY [facility] Last Admin: 04/05/18 09:00 Dose: 75 mg Docusate Sodium (Colace -) 100 mg PO Q12H PRN PRN Reason: CONSTIPATION Last Admin: 03/29/18 23:21 Dose: 100 mg Escitalopram Oxalate (Lexapro -) 10 mg PO DAILY [facility] Last Admin: 04/05/18 09:00 Dose: 10 mg Finasteride (Proscar -) 5 mg PO DAILY [facility] Last Admin: 04/05/18 09:00 Dose: 5 mg Furosemide (Lasix Injection -) 100 mg IVPB BID@0600,1400 [facility] Last Admin: 04/05/18 05:58 Dose: 100 mg Glipizide (Glucotrol -) 2.5 mg PO DAILY@0700 [facility] Last Admin: 04/05/18 06:48 Dose: 2.5 mg Insulin Aspart (Novolog Vial Sliding Scale -) 1 vial SQ [facility]; Protocol Last Admin: 04/05/18 06:14 Dose: Not Given Metoprolol Succinate (Toprol Xl -) 25 mg PO DAILY [facility] Last Admin: 04/05/18 09:00 Dose: 25 mg Ondansetron HCl (Zofran Injection) 4 mg IVPUSH Q6H PRN PRN Reason: NAUSEA AND/OR VOMITING Rivaroxaban (Xarelto -) 15 mg PO DAILY@1800 [facility] Last Admin: 04/04/18 17:33 Dose: 15 mg Rosuvastatin Calcium (Crestor -) 10 mg PO HS [facility] Last Admin: 04/04/18 21:52 Dose: 10 mg Tamsulosin HCl (Flomax -) 0.4 mg PO BID@0830,2200 [facility] Last Admin: 04/05/18 08:48 Dose: 0.4 mg Zolpidem Tartrate (Ambien -) 5 mg PO HS PRN PRN Reason: INSOMNIA Last Admin: 04/04/18 21:55 Dose: 5 mg 78 year old gentleman with Hx of CHF, Hypertension, HLD, DM who presented with SOB and admitted for CHF exacerbation with PACO. #PACO on ? 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
[2018-04-05 11:17] LABS: ANION GAP 10 MMOL/L (8-16); BLOOD UREA NITROGEN 40 mg/dL (7-18); CALCIUM 9.3 mg/dL (8.5-10.1); CHLORIDE 96 mmol/L (98-107); CO2 31 mmol/L (21-32); CREATININE 1.3 mg/dL (0.55-1.3); GLUCOSE,RANDOM 198 mg/dL (74-106); POTASSIUM 3.4 mmol/L (3.5-5.1); SODIUM 137 mmol/L (136-145)
--- NOTE | 2018-04-05 11:40 | PN ---
Progress Note, Physician History of Present Illness: PULMONARY ALERT,OOB-CHAIR,-C/O SOB,-CP. - Current Medication List Current Medications: Active Medications Acetaminophen (Tylenol -) 650 mg PO Q6H PRN PRN Reason: FEVER Last Admin: 03/30/18 16:06 Dose: 650 mg Allopurinol (Zyloprim -) 100 mg PO DAILY [facility] Last Admin: 04/05/18 09:00 Dose: 100 mg Allopurinol (Zyloprim -) 100 mg PO HS PRN PRN Reason: PAIN Last Admin: 04/04/18 21:57 Dose: 100 mg Cephalexin HCl (Keflex -) 500 mg PO TID [facility] Last Admin: 04/05/18 05:58 Dose: 500 mg Cholecalciferol (Vitamin D3 -) 2,000 unit PO DAILY [facility] Last Admin: 04/05/18 09:00 Dose: 2,000 unit Clopidogrel Bisulfate (Plavix -) 75 mg PO DAILY [facility] Last Admin: 04/05/18 09:00 Dose: 75 mg Docusate Sodium (Colace -) 100 mg PO Q12H PRN PRN Reason: CONSTIPATION Last Admin: 03/29/18 23:21 Dose: 100 mg Escitalopram Oxalate (Lexapro -) 10 mg PO DAILY [facility] Last Admin: 04/05/18 09:00 Dose: 10 mg Finasteride (Proscar -) 5 mg PO DAILY [facility] Last Admin: 04/05/18 09:00 Dose: 5 mg Furosemide (Lasix Injection -) 100 mg IVPB BID@0600,1400 [facility] Last Admin: 04/05/18 05:58 Dose: 100 mg Glipizide (Glucotrol -) 2.5 mg PO DAILY@0700 [facility] Last Admin: 04/05/18 06:48 Dose: 2.5 mg Insulin Aspart (Novolog Vial Sliding Scale -) 1 vial SQ ACHS [facility]; Protocol Last Admin: 04/05/18 11:21 Dose: Not Given Metoprolol Succinate (Toprol Xl -) 25 mg PO DAILY [facility] Last Admin: 04/05/18 09:00 Dose: 25 mg Ondansetron HCl (Zofran Injection) 4 mg IVPUSH Q6H PRN PRN Reason: NAUSEA AND/OR VOMITING Rivaroxaban (Xarelto -) 15 mg PO DAILY@1800 [facility] Last Admin: 04/04/18 17:33 Dose: 15 mg Rosuvastatin Calcium (Crestor -) 10 mg PO HS [facility] Last Admin: 04/04/18 21:52 Dose: 10 mg Tamsulosin HCl (Flomax -) 0.4 mg PO BID@0830,2200 [facility] Last Admin: 04/05/18 08:48 Dose: 0.4 mg Zolpidem Tartrate (Ambien -) 5 mg PO HS PRN PRN Reason: INSOMNIA Last Admin: 04/04/18 21:55 Dose: 5 mg - Objective Vital Signs: Vital Signs Temperature 99.7 F H 04/05/18 06:00 Pulse Rate 93 H 04/05/18 06:00 Respiratory Rate 19 04/05/18 06:00 Blood Pressure 95/62 04/05/18 06:00 O2 Sat by Pulse Oximetry (%) 97 04/04/18 21:00 Constitutional: Yes: Well Nourished, Calm Eyes: Yes: WNL HENT: Yes: WNL Neck: Yes: WNL Cardiovascular: Yes: Pulse Irregular, S1, S2 Respiratory: Yes: Rales (FEW BIBASAILAR RALES) Gastrointestinal: Yes: Normal Bowel Sounds, Soft Extremities: Yes: WNL Edema: No Labs: CBC, BMP 04/05/18 10:30 Problem List - Problems (1) AICD (automatic cardioverter/defibrillator) present Code(s): Z95.810 - PRESENCE OF AUTOMATIC (IMPLANTABLE) CARDIAC DEFIBRILLATOR (2) PACO (acute kidney injury) Code(s): N17.9 - ACUTE KIDNEY FAILURE, UNSPECIFIED (3) Acute systolic CHF (congestive heart failure) Code(s): I50.21 - ACUTE SYSTOLIC (CONGESTIVE) HEART FAILURE (4) CAD (coronary artery disease) Code(s): I25.10 - ATHSCL HEART DISEASE OF [place] CORONARY ARTERY W/O ANG PCTRS (5) Diabetes mellitus Code(s): E11.9 - TYPE 2 DIABETES MELLITUS WITHOUT COMPLICATIONS (6) Hypercholesteremia Code(s): E78.00 - PURE HYPERCHOLESTEROLEMIA, UNSPECIFIED (7) Elevated troponin I level Code(s): R74.8 - ABNORMAL LEVELS OF OTHER SERUM ENZYMES (8) Hematuria Code(s): R31.9 - HEMATURIA, UNSPECIFIED (9) Hypertension Code(s): I10 - ESSENTIAL (PRIMARY) HYPERTENSION Assessment/Plan IMP: Acute on Chronic Systolic Heart Failure improving Atrial Fibrillation CAD +Troponins likely Demand Ischemia Acute on Chronic Renal Failure HTN DM Hyperlipidemia Hematuria - continue lasix - monitor urine output, creatinine - daily weights - Incentive spirometry - rate controlled with Beta Mili - O2 to maintain saturation DR CÁRDENAS
[2018-04-05 12:03] LABS: ALBUMIN 3.3 g/dl (3.4-5.0); ALK PHOS 67 U/L (45-117); BILIRUBIN,TOTAL 0.9 mg/dL (0.2-1); SGOT/AST 9 U/L (15-37); SGPT/ALT 11 U/L (13-61); TOT PROT 6.5 g/dl (6.4-8.2)
[2018-04-05] MEDS ORDERED: POTASSIUM CHLORIDE TABS 20 MEQ TABLET.ER (FP) PO ONE (13:14)
[2018-04-05 14:46] VITALS: BMI 26.4
[2018-04-05 15:12] LABS: BASO % 0.8 % (0-2.0); EOS % 0.9 % (0-4.5); HEMATOCRIT 38.2 % (35.4-49); HEMOGLOBIN 12.4 GM/dL (11.7-16.9); MCH 27.5 pg (25.7-33.7); MCHC 32.3 g/dl (32.0-35.9); MEAN CELL VOLUME 85.2 fl (80-96); MEAN PLT VOLUME 7.8 fl (7.5-11.1); MONO % 8.3 % (3.8-10.2); PLATELET COUNT 284 K/MM3 (134-434); RBC 4.49 M/mm3 (4.00-5.60); RDW 17.1 % (11.9-15.9); WHITE BLOOD COUNT 9.5 K/mm3 (4.0-10.0)
[2018-04-05] MEDS ORDERED: PT OWN MED DRAWER 7, Y5N ONE (17:09)
--- NOTE | 2018-04-05 17:32 | PN ---
Progress Note (short form) - Note Progress Note: UROLOGY NOTE 78 Y/O Male patient with history of BPH S/P TUVP 03/27. voiding well occasional gross hematuria, good flow no dysuria no fever. he is on keflex and flomax. O/E soft lax abd S.Creat 1.3 HBG 12.4 Plan: D/C flomax keep keflex 500mg TID proscar 5mg RTC 2 weeks for PVR
[2018-04-05] MEDS: RIVAROXABAN 15 MG TABLET PO SCH (17:43)
[2018-04-05] MEDS: ZOLPIDEM TARTRATE 5 MG TABLET PO PRN (21:46)
[2018-04-05] MEDS: ROSUVASTATIN CA 10 MG TABLET (FP) PO SCH (21:46)
[2018-04-05] MEDS: ALLOPURINOL 100 MG TABLET (FP) PO PRN (21:50)
[2018-04-06] MEDS: glipiZIDE 5 MG TABLET (FP) PO SCH (06:08)
[2018-04-06] MEDS: CEPHALEXIN MONOHYDRATE 500 MG CAPSULE (UD) PO SCH ×3 (06:08→21:37)
[2018-04-06] MEDS: FUROSEMIDE 100 MG/10 ML INJECTABLE VIAL IVPB SCH ×2 (06:08→13:08)
[2018-04-06] MEDS: INSULIN SLIDING SCALE (NOVOLOG) 1 VIAL SQ SCH ×3 (06:09→17:15)
[2018-04-06 08:08] LABS: ANION GAP 7 MMOL/L (8-16); BLOOD UREA NITROGEN 41 mg/dL (7-18); CALCIUM 9.1 mg/dL (8.5-10.1); CHLORIDE 97 mmol/L (98-107); CO2 32 mmol/L (21-32); CREATININE 1.3 mg/dL (0.55-1.3); GLUCOSE,RANDOM 141 mg/dL (74-106); MAGNESIUM 2.2 mg/dL (1.8-2.4); PHOSPHOROUS 3.2 mg/dL (2.5-4.9); POTASSIUM 3.9 mmol/L (3.5-5.1); SODIUM 136 mmol/L (136-145)
[2018-04-06] MEDS: FINASTERIDE 5 MG TABLET (FP) PO SCH (09:34)
[2018-04-06] MEDS: ALLOPURINOL 100 MG TABLET (FP) PO SCH (09:34)
[2018-04-06] MEDS: TAMSULOSIN HCL 0.4 MG CAP PO SCH ×2 (09:34→21:37)
[2018-04-06] MEDS: ESCITALOPRAM OXALATE 10 MG TABLET (FP) PO SCH (09:34)
[2018-04-06] MEDS: metoPROLOL SUCCINATE 25 MG TAB.SR.24H (FP) PO SCH (09:34)
[2018-04-06] MEDS: ACETAMINOPHEN 325 MG TABLET (FP) PO PRN (09:35)
[2018-04-06] MEDS: CHOLECALCIFEROL (VITAMIN D3) 1,000 UNIT TABLET (FP) PO SCH (09:35)
[2018-04-06] MEDS: CLOPIDOGREL BISULFATE 75 MG TABLET (FP) PO SCH (09:35)
[2018-04-06] MEDS: oxyCODONE HCL 5 MG TABLET PO PRN (09:36)
--- NOTE | 2018-04-06 09:46 | PN ---
Progress Note (short form) - Note Progress Note: cc: sob s: no sob chest pain, palps, dizzy, lightheadedness. complains of abd pain, blood in urine ex cigs Current Medications Acetaminophen (Tylenol -) 650 mg PO Q6H PRN PRN Reason: PAIN LEVEL 6-10 Last Admin: 04/06/18 09:35 Dose: 650 mg Allopurinol (Zyloprim -) 100 mg PO DAILY [facility] Last Admin: 04/06/18 09:34 Dose: 100 mg Allopurinol (Zyloprim -) 100 mg PO HS PRN PRN Reason: PAIN Last Admin: 04/05/18 21:50 Dose: 100 mg Cephalexin HCl (Keflex -) 500 mg PO TID [facility] Last Admin: 04/06/18 06:08 Dose: 500 mg Cholecalciferol (Vitamin D3 -) 2,000 unit PO DAILY [facility] Last Admin: 04/06/18 09:35 Dose: 2,000 unit Clopidogrel Bisulfate (Plavix -) 75 mg PO DAILY [facility] Last Admin: 04/06/18 09:35 Dose: 75 mg Docusate Sodium (Colace -) 100 mg PO Q12H PRN PRN Reason: CONSTIPATION Last Admin: 03/29/18 23:21 Dose: 100 mg Escitalopram Oxalate (Lexapro -) 10 mg PO DAILY [facility] Last Admin: 04/06/18 09:34 Dose: 10 mg Finasteride (Proscar -) 5 mg PO DAILY [facility] Last Admin: 04/06/18 09:34 Dose: 5 mg Furosemide (Lasix Injection -) 100 mg IVPB BID@0600,1400 [facility] Last Admin: 04/06/18 06:08 Dose: 100 mg Glipizide (Glucotrol -) 2.5 mg PO DAILY@0700 [facility] Last Admin: 04/06/18 06:08 Dose: 2.5 mg Insulin Aspart (Novolog Vial Sliding Scale -) 1 vial SQ ACHS [facility]; Protocol Last Admin: 04/06/18 06:09 Dose: Not Given Metoprolol Succinate (Toprol Xl -) 25 mg PO DAILY [facility] Last Admin: 04/06/18 09:34 Dose: 25 mg Ondansetron HCl (Zofran Injection) 4 mg IVPUSH Q6H PRN PRN Reason: NAUSEA AND/OR VOMITING Oxycodone HCl (Roxicodone -) 5 mg PO Q6H PRN PRN Reason: PAIN LEVEL 6-10 Last Admin: 04/06/18 09:36 Dose: 5 mg Rivaroxaban (Xarelto -) 15 mg PO DAILY@1800 [facility] Last Admin: 04/05/18 17:43 Dose: 15 mg Rosuvastatin Calcium (Crestor -) 10 mg PO HS [facility] Last Admin: 04/05/18 21:46 Dose: 10 mg Tamsulosin HCl (Flomax -) 0.4 mg PO BID@0830,2200 [facility] Last Admin: 04/06/18 09:34 Dose: 0.4 mg Zolpidem Tartrate (Ambien -) 5 mg PO HS PRN PRN Reason: INSOMNIA Last Admin: 04/05/18 21:46 Dose: 5 mg - Objective Vital Signs Period Temp Pulse Resp BP Sys/Eisenberg Pulse Ox Last 24 Hr 97.5 F-98.2 F 93-100 18-20 92-99/57-68 94-97 Constitutional: Yes: No Distress, Calm Eyes: No: Sclera Icterus HENT: No: Nasal Congestion Cardiovascular: Yes: Regular Rate and Rhythm, JVD, S1, S2, Other (PMI non diplaced). No: Gallop, Murmur Respiratory: Yes: CTA Bilaterally. No: Accessory Muscle Use, Wheezes Gastrointestinal: Yes: Normal Bowel Sounds, Soft. 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 EF 15% dyskinetic apex, s/p LM PCI tele: sinus tachycardia, PVCs, nsvt 6 beats acute on chronic systolic HF s/p ICD - admitting symptoms concerning for CHF exacerbation, BNP 8000 - diuresed with lasix 80 iv bid earlier this admit, no standing wts done then. - changed to torsemide 80 mg BID (home dose), then eventually changed to torsemide 80 qd which he is currently on - med dosing has been limited by low bp--spirono and losartan from home were held here. metoprolol dose reduced. - 03/30: resumed lasix 80 iv bid. - 03/31: I/O (had curtis in) = 130/2150, wt up 181 to 183 lbs. renal fxn stable. received metolazone, lasix 80 mg IV TID - 04/01: UOP 2L, wt down 183 to 180. renal fxn stable. lasix 100 bid with metolazone given, metoprolol changed to succinate - 04/02: symptoms improving, weight down 180->179 lbs, lasix 100 IV BID continued - 04/03: lasix held this AM due to hypotension, continue lasix 100 mg IV BID. BUN /Cr improving - 04/04-: cr stable, sob better, wt down. cont iv lasix for now. - 04/06: urinary retention today, decreased UOP, urology follow up pending for catheter. Continue IV lasix 100 mg BID pending urology eval - resume ARB +/- spironolactone later, once pt well diuresed and can reassess bp - continue metoprolol succinate 25 mg daily VTach: - brief NSVT on tele. - cont metoprolol (dose limited by low bp) - fluid status optimization as doing - K/Mag > 4/2 CAD s/p LM stent 04/2017 - cont statin, metoprolol, plavix pos troponin -borderline trop elevation with flat trend and nl ck, not c/w acs afib - restarted on metoprolol 25 mg BID with improved rates, up titrate as tolerated however has had low BP - cont Xarelto PACO on CKD - baseline creatin in 1.4 from office 12/31 - initial PACO here ? cardiorenal, ? obstructive - curtis placed, renal ultrasound, no obstruction - creatinine stable at baseline
--- NOTE | 2018-04-06 11:12 | PN ---
Progress Note, Physician History of Present Illness: pulmonary alert,-resp distress,+ urinary retention - Current Medication List Current Medications: Active Medications Acetaminophen (Tylenol -) 650 mg PO Q6H PRN PRN Reason: PAIN LEVEL 6-10 Last Admin: 04/06/18 09:35 Dose: 650 mg Allopurinol (Zyloprim -) 100 mg PO DAILY [facility] Last Admin: 04/06/18 09:34 Dose: 100 mg Allopurinol (Zyloprim -) 100 mg PO HS PRN PRN Reason: PAIN Last Admin: 04/05/18 21:50 Dose: 100 mg Cephalexin HCl (Keflex -) 500 mg PO TID [facility] Last Admin: 04/06/18 06:08 Dose: 500 mg Cholecalciferol (Vitamin D3 -) 2,000 unit PO DAILY [facility] Last Admin: 04/06/18 09:35 Dose: 2,000 unit Clopidogrel Bisulfate (Plavix -) 75 mg PO DAILY [facility] Last Admin: 04/06/18 09:35 Dose: 75 mg Docusate Sodium (Colace -) 100 mg PO Q12H PRN PRN Reason: CONSTIPATION Last Admin: 03/29/18 23:21 Dose: 100 mg Escitalopram Oxalate (Lexapro -) 10 mg PO DAILY [facility] Last Admin: 04/06/18 09:34 Dose: 10 mg Finasteride (Proscar -) 5 mg PO DAILY [facility] Last Admin: 04/06/18 09:34 Dose: 5 mg Furosemide (Lasix Injection -) 100 mg IVPB BID@0600,1400 [facility] Last Admin: 04/06/18 06:08 Dose: 100 mg Glipizide (Glucotrol -) 2.5 mg PO DAILY@0700 [facility] Last Admin: 04/06/18 06:08 Dose: 2.5 mg Insulin Aspart (Novolog Vial Sliding Scale -) 1 vial SQ ACHS [facility]; Protocol Last Admin: 04/06/18 06:09 Dose: Not Given Metoprolol Succinate (Toprol Xl -) 25 mg PO DAILY [facility] Last Admin: 04/06/18 09:34 Dose: 25 mg Ondansetron HCl (Zofran Injection) 4 mg IVPUSH Q6H PRN PRN Reason: NAUSEA AND/OR VOMITING Oxycodone HCl (Roxicodone -) 5 mg PO Q6H PRN PRN Reason: PAIN LEVEL 6-10 Last Admin: 04/06/18 09:36 Dose: 5 mg Rivaroxaban (Xarelto -) 15 mg PO DAILY@1800 [facility] Last Admin: 04/05/18 17:43 Dose: 15 mg Rosuvastatin Calcium (Crestor -) 10 mg PO HS [facility] Last Admin: 04/05/18 21:46 Dose: 10 mg Tamsulosin HCl (Flomax -) 0.4 mg PO BID@0830,2200 [facility] Last Admin: 04/06/18 09:34 Dose: 0.4 mg Zolpidem Tartrate (Ambien -) 5 mg PO HS PRN PRN Reason: INSOMNIA Last Admin: 04/05/18 21:46 Dose: 5 mg - Objective Vital Signs: Vital Signs Temperature 98.2 F 04/06/18 06:00 Pulse Rate 98 H 04/06/18 06:00 Respiratory Rate 18 04/06/18 06:00 Blood Pressure 97/68 04/06/18 06:00 O2 Sat by Pulse Oximetry (%) 94 L 04/05/18 21:00 Constitutional: Yes: Well Nourished, Calm Eyes: Yes: WNL HENT: Yes: WNL Neck: Yes: WNL Cardiovascular: Yes: Pulse Irregular, S1, S2 Respiratory: Yes: Rales (bibasilar crackles) Gastrointestinal: Yes: Normal Bowel Sounds, Soft Extremities: Yes: WNL Edema: No Labs: CBC, BMP 04/06/18 06:00 Problem List - Problems (1) AICD (automatic cardioverter/defibrillator) present Code(s): Z95.810 - PRESENCE OF AUTOMATIC (IMPLANTABLE) CARDIAC DEFIBRILLATOR (2) PACO (acute kidney injury) Code(s): N17.9 - ACUTE KIDNEY FAILURE, UNSPECIFIED (3) Acute systolic CHF (congestive heart failure) Code(s): I50.21 - ACUTE SYSTOLIC (CONGESTIVE) HEART FAILURE (4) CAD (coronary artery disease) Code(s): I25.10 - ATHSCL HEART DISEASE OF [place] CORONARY ARTERY W/O ANG PCTRS (5) Diabetes mellitus Code(s): E11.9 - TYPE 2 DIABETES MELLITUS WITHOUT COMPLICATIONS (6) Hypercholesteremia Code(s): E78.00 - PURE HYPERCHOLESTEROLEMIA, UNSPECIFIED (7) Elevated troponin I level Code(s): R74.8 - ABNORMAL LEVELS OF OTHER SERUM ENZYMES (8) Hematuria Code(s): R31.9 - HEMATURIA, UNSPECIFIED (9) Hypertension Code(s): I10 - ESSENTIAL (PRIMARY) HYPERTENSION Assessment/Plan IMP: Acute on Chronic Systolic Heart Failure improving Atrial Fibrillation CAD +Troponins likely Demand Ischemia Acute on Chronic Renal Failure HTN DM Hyperlipidemia Hematuria - lasix - monitor urine output, creatinine - daily weights - Incentive spirometry - rate controlled with Beta Mili - O2 to maintain saturation - evaluation DR CÁRDENAS
--- NOTE | 2018-04-06 12:14 | PN ---
Progress Note (short form) - Note Progress Note: covering dr cardoza #PACO on ? 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 +/- obstruction/urinary retention #CHF Exacerbation #BPH with retention #Renal Cysts pmhx- CHF, Hypertension, HLD, DM Current Medications Acetaminophen (Tylenol -) 650 mg PO Q6H PRN PRN Reason: PAIN LEVEL 6-10 Last Admin: 04/06/18 09:35 Dose: 650 mg Allopurinol (Zyloprim -) 100 mg PO DAILY [facility] Last Admin: 04/06/18 09:34 Dose: 100 mg Allopurinol (Zyloprim -) 100 mg PO HS PRN PRN Reason: PAIN Last Admin: 04/05/18 21:50 Dose: 100 mg Cephalexin HCl (Keflex -) 500 mg PO TID [facility] Last Admin: 04/06/18 06:08 Dose: 500 mg Cholecalciferol (Vitamin D3 -) 2,000 unit PO DAILY [facility] Last Admin: 04/06/18 09:35 Dose: 2,000 unit Clopidogrel Bisulfate (Plavix -) 75 mg PO DAILY [facility] Last Admin: 04/06/18 09:35 Dose: 75 mg Docusate Sodium (Colace -) 100 mg PO Q12H PRN PRN Reason: CONSTIPATION Last Admin: 03/29/18 23:21 Dose: 100 mg Escitalopram Oxalate (Lexapro -) 10 mg PO DAILY [facility] Last Admin: 04/06/18 09:34 Dose: 10 mg Finasteride (Proscar -) 5 mg PO DAILY [facility] Last Admin: 04/06/18 09:34 Dose: 5 mg Furosemide (Lasix Injection -) 100 mg IVPB BID@0600,1400 [facility] Last Admin: 04/06/18 06:08 Dose: 100 mg Glipizide (Glucotrol -) 2.5 mg PO DAILY@0700 [facility] Last Admin: 04/06/18 06:08 Dose: 2.5 mg Insulin Aspart (Novolog Vial Sliding Scale -) 1 vial SQ ACHS [facility]; Protocol Last Admin: 04/06/18 11:27 Dose: Not Given Metoprolol Succinate (Toprol Xl -) 25 mg PO DAILY [facility] Last Admin: 04/06/18 09:34 Dose: 25 mg Ondansetron HCl (Zofran Injection) 4 mg IVPUSH Q6H PRN PRN Reason: NAUSEA AND/OR VOMITING Oxycodone HCl (Roxicodone -) 5 mg PO Q6H PRN PRN Reason: PAIN LEVEL 6-10 Last Admin: 04/06/18 09:36 Dose: 5 mg Rivaroxaban (Xarelto -) 15 mg PO DAILY@1800 [facility] Last Admin: 04/05/18 17:43 Dose: 15 mg Rosuvastatin Calcium (Crestor -) 10 mg PO HS [facility] Last Admin: 04/05/18 21:46 Dose: 10 mg Tamsulosin HCl (Flomax -) 0.4 mg PO BID@0830,2200 [facility] Last Admin: 04/06/18 09:34 Dose: 0.4 mg Zolpidem Tartrate (Ambien -) 5 mg PO HS PRN PRN Reason: INSOMNIA Last Admin: 04/05/18 21:46 Dose: 5 mg Last Vital Signs Temp Pulse Resp BP Pulse Ox 98.2 F 98 H 18 97/68 94 L 04/06/18 06:00 04/06/18 06:00 04/06/18 06:00 04/06/18 06:00 04/05/18 21:00 c/o urinary retention aand pain Lungs clear Heart reg Abd soft nontender ext no edema CBC, BMP 04/05/18 10:30 04/06/18 06:00 IMP- Cardiomyopathy s/p BPH amd s/p TUR Plan- waiting for gu renal function ok so far
--- NOTE | 2018-04-06 13:04 | PN ---
Progress Note (short form) - Note Progress Note: UROLOGY NOTE. PT. UNABLE TO VOID ,MULTIPLE ATTEMPTS AT PASSAGE OF ROACH HAVE BEEN UNSUCCESSFULL. 20F 10CC CAUDA ROACH INSERTED AND 1200 CC OF DARK, CONCENTRATED URINE DRAINED. PLAN-KEEP ROACH TO LEG BAG AND RESTART FLOMAX 0.8 MG DAILY.PT. IS UROLOGICLLY OK FOR D/C WITH ROACH AND WILL BE F/U IN OFFICE IN 3 -5 DAYS.
--- NOTE | 2018-04-06 14:50 | PN ---
Progress Note, Physician History of Present Illness: Pt w/o CP, palpitations, abd pain, N, V. Pt is tolerating Holt cath. - Current Medication List Current Medications: Active Medications Acetaminophen (Tylenol -) 650 mg PO Q6H PRN PRN Reason: PAIN LEVEL 6-10 Last Admin: 04/06/18 09:35 Dose: 650 mg Allopurinol (Zyloprim -) 100 mg PO DAILY [facility] Last Admin: 04/06/18 09:34 Dose: 100 mg Allopurinol (Zyloprim -) 100 mg PO HS PRN PRN Reason: PAIN Last Admin: 04/05/18 21:50 Dose: 100 mg Cephalexin HCl (Keflex -) 500 mg PO TID [facility] Last Admin: 04/06/18 13:07 Dose: 500 mg Cholecalciferol (Vitamin D3 -) 2,000 unit PO DAILY [facility] Last Admin: 04/06/18 09:35 Dose: 2,000 unit Clopidogrel Bisulfate (Plavix -) 75 mg PO DAILY [facility] Last Admin: 04/06/18 09:35 Dose: 75 mg Docusate Sodium (Colace -) 100 mg PO Q12H PRN PRN Reason: CONSTIPATION Last Admin: 03/29/18 23:21 Dose: 100 mg Escitalopram Oxalate (Lexapro -) 10 mg PO DAILY [facility] Last Admin: 04/06/18 09:34 Dose: 10 mg Finasteride (Proscar -) 5 mg PO DAILY [facility] Last Admin: 04/06/18 09:34 Dose: 5 mg Furosemide (Lasix Injection -) 100 mg IVPB BID@0600,1400 [facility] Last Admin: 04/06/18 13:08 Dose: 100 mg Glipizide (Glucotrol -) 2.5 mg PO DAILY@0700 [facility] Last Admin: 04/06/18 06:08 Dose: 2.5 mg Insulin Aspart (Novolog Vial Sliding Scale -) 1 vial SQ ACHS [facility]; Protocol Last Admin: 04/06/18 11:27 Dose: Not Given Metoprolol Succinate (Toprol Xl -) 25 mg PO DAILY [facility] Last Admin: 04/06/18 09:34 Dose: 25 mg Ondansetron HCl (Zofran Injection) 4 mg IVPUSH Q6H PRN PRN Reason: NAUSEA AND/OR VOMITING Oxycodone HCl (Roxicodone -) 5 mg PO Q6H PRN PRN Reason: PAIN LEVEL 6-10 Last Admin: 04/06/18 09:36 Dose: 5 mg Rivaroxaban (Xarelto -) 15 mg PO DAILY@1800 [facility] Last Admin: 04/05/18 17:43 Dose: 15 mg Rosuvastatin Calcium (Crestor -) 10 mg PO HS [facility] Last Admin: 04/05/18 21:46 Dose: 10 mg Tamsulosin HCl (Flomax -) 0.4 mg PO BID@0830,2200 [facility] Last Admin: 04/06/18 09:34 Dose: 0.4 mg Zolpidem Tartrate (Ambien -) 5 mg PO HS PRN PRN Reason: INSOMNIA Last Admin: 04/05/18 21:46 Dose: 5 mg - Objective Vital Signs: Vital Signs Temperature 98.2 F 04/06/18 06:00 Pulse Rate 98 H 04/06/18 06:00 Respiratory Rate 18 04/06/18 06:00 Blood Pressure 97/68 04/06/18 06:00 O2 Sat by Pulse Oximetry (%) 94 L 04/05/18 21:00 Constitutional: Yes: No Distress, Calm Cardiovascular: Yes: Regular Rate and Rhythm, S1, S2 Respiratory: Yes: Regular, CTA Bilaterally, Rales (crackles at bases) Edema: No Neurological: Yes: Alert, Oriented Labs: CBC, BMP 04/05/18 10:30 04/06/18 06:00 Problem List - Problems (1) Acute systolic CHF (congestive heart failure) Code(s): I50.21 - ACUTE SYSTOLIC (CONGESTIVE) HEART FAILURE (2) Elevated troponin I level Code(s): R74.8 - ABNORMAL LEVELS OF OTHER SERUM ENZYMES (3) Hypotension Code(s): I95.9 - HYPOTENSION, UNSPECIFIED (4) PACO (acute kidney injury) Code(s): N17.9 - ACUTE KIDNEY FAILURE, UNSPECIFIED (5) CRF (chronic renal failure) Code(s): N18.9 - CHRONIC KIDNEY DISEASE, UNSPECIFIED (6) Hypercholesteremia Code(s): E78.00 - PURE HYPERCHOLESTEROLEMIA, UNSPECIFIED (7) Hypertension Code(s): I10 - ESSENTIAL (PRIMARY) HYPERTENSION (8) Pleural effusion Code(s): J90 - PLEURAL EFFUSION, NOT ELSEWHERE CLASSIFIED (9) CAD (coronary artery disease) Code(s): I25.10 - ATHSCL HEART DISEASE OF [place] CORONARY ARTERY W/O ANG PCTRS (10) AICD (automatic cardioverter/defibrillator) present Code(s): Z95.810 - PRESENCE OF AUTOMATIC (IMPLANTABLE) CARDIAC DEFIBRILLATOR (11) PAF (paroxysmal atrial fibrillation) Code(s): I48.0 - PAROXYSMAL ATRIAL FIBRILLATION (12) Urinary retention Code(s): R33.9 - RETENTION OF URINE, UNSPECIFIED (13) Hematuria Code(s): R31.9 - HEMATURIA, UNSPECIFIED Assessment/Plan S/p TUVP; Holt was removed, urinating well, then developed urinary retention; Holt cath was reinserted today Pt is on Lasix IVP BID secondary to dyspnea/ CHF exacerbation; breathing is improving with IV Lasix; to monitor renal function (BUN trending up) Pt on Xarelto and Plavix. Pt was admitted to ICU, transferred to Telemetry. Serial CE -stable; CE were found to be elevated in the settings of PACO and CHF ( probable demand ischemia) ICU/CCM, Cardio, Renal, consults are appreciated. Home med on hold at admission: Losartan, Spironolactone, Torsemide, Metformin. Pt on Glipizide. BGM with Novolog coverage. Pt is tolerating Metoprolol; pt's blood presure is improved. Pt would benefit of ACEI or ARB; can be restarted as tolerated. AM labs. Pt's case was d/w pt's nurse.
[2018-04-06] MEDS ORDERED: PT OWN MED DRAWER 7, Y5N ONE (17:13)
[2018-04-06] MEDS: RIVAROXABAN 15 MG TABLET PO SCH (17:15)
[2018-04-06] MEDS: ROSUVASTATIN CA 10 MG TABLET (FP) PO SCH (21:37)
[2018-04-06] MEDS: ZOLPIDEM TARTRATE 5 MG TABLET PO PRN (21:53)
[2018-04-06] MEDS: ALLOPURINOL 100 MG TABLET (FP) PO PRN (21:55)
[2018-04-07] MEDS: ACETAMINOPHEN 325 MG TABLET (FP) PO PRN (00:11)
[2018-04-07] MEDS: oxyCODONE HCL 5 MG TABLET PO PRN (00:13)
[2018-04-07] MEDS: INSULIN SLIDING SCALE (NOVOLOG) 1 VIAL SQ SCH ×5 (01:09→22:18)
[2018-04-07] MEDS: CEPHALEXIN MONOHYDRATE 500 MG CAPSULE (UD) PO SCH ×3 (05:19→22:18)
[2018-04-07] MEDS: FUROSEMIDE 100 MG/10 ML INJECTABLE VIAL IVPB SCH ×2 (05:19→13:38)
[2018-04-07] MEDS: glipiZIDE 5 MG TABLET (FP) PO SCH (06:28)
[2018-04-07 07:59] LABS: BASO % 0.3 % (0-2.0); EOS % 0.6 % (0-4.5); HEMATOCRIT 37.1 % (35.4-49); HEMOGLOBIN 11.9 GM/dL (11.7-16.9); LYMPH % 10.6 % (8-40); MCH 27.1 pg (25.7-33.7); MCHC 32.1 g/dl (32.0-35.9); MEAN CELL VOLUME 84.5 fl (80-96); MEAN PLT VOLUME 7.3 fl (7.5-11.1); MONO % 8.4 % (3.8-10.2); NEUT % 80.1 % (42.8-82.8); PLATELET COUNT 226 K/MM3 (134-434); RBC 4.39 M/mm3 (4.00-5.60); RDW 17.5 % (11.9-15.9); WHITE BLOOD COUNT 11.8 K/mm3 (4.0-10.0)
[2018-04-07 08:34] LABS: ALBUMIN 3.1 g/dl (3.4-5.0); ALK PHOS 71 U/L (45-117); ANION GAP 12 MMOL/L (8-16); BLOOD UREA NITROGEN 47 mg/dL (7-18); CALCIUM 9.2 mg/dL (8.5-10.1); CHLORIDE 97 mmol/L (98-107); CO2 27 mmol/L (21-32); CREATININE 1.2 mg/dL (0.55-1.3); GLUCOSE,RANDOM 135 mg/dL (74-106); POTASSIUM 3.5 mmol/L (3.5-5.1); SGOT/AST 12 U/L (15-37); SGPT/ALT 10 U/L (13-61); SODIUM 137 mmol/L (136-145); TOT PROT 6.4 g/dl (6.4-8.2)
[2018-04-07] MEDS: ESCITALOPRAM OXALATE 10 MG TABLET (FP) PO SCH (09:35)
[2018-04-07] MEDS: CHOLECALCIFEROL (VITAMIN D3) 1,000 UNIT TABLET (FP) PO SCH (09:35)
[2018-04-07] MEDS: metoPROLOL SUCCINATE 25 MG TAB.SR.24H (FP) PO SCH (09:35)
[2018-04-07] MEDS: FINASTERIDE 5 MG TABLET (FP) PO SCH (09:35)
[2018-04-07] MEDS: ALLOPURINOL 100 MG TABLET (FP) PO SCH (09:35)
[2018-04-07] MEDS: CLOPIDOGREL BISULFATE 75 MG TABLET (FP) PO SCH (09:35)
[2018-04-07] MEDS: TAMSULOSIN HCL 0.4 MG CAP PO SCH ×2 (09:35→22:16)
--- NOTE | 2018-04-07 10:10 | PN ---
Progress Note (short form) - Note Progress Note: cc: sob s: no sob chest pain, palps, dizzy, lightheadedness. curtis placed by urology yesterday for difficulty voiding ex cigs Current Medications Acetaminophen (Tylenol -) 650 mg PO Q6H PRN PRN Reason: PAIN LEVEL 6-10 Last Admin: 04/07/18 00:11 Dose: 650 mg Allopurinol (Zyloprim -) 100 mg PO DAILY [facility] Last Admin: 04/07/18 09:35 Dose: 100 mg Allopurinol (Zyloprim -) 100 mg PO HS PRN PRN Reason: PAIN Last Admin: 04/06/18 21:55 Dose: 100 mg Cephalexin HCl (Keflex -) 500 mg PO TID [facility] Last Admin: 04/07/18 05:19 Dose: 500 mg Cholecalciferol (Vitamin D3 -) 2,000 unit PO DAILY [facility] Last Admin: 04/07/18 09:35 Dose: 2,000 unit Clopidogrel Bisulfate (Plavix -) 75 mg PO DAILY [facility] Last Admin: 04/07/18 09:35 Dose: 75 mg Docusate Sodium (Colace -) 100 mg PO Q12H PRN PRN Reason: CONSTIPATION Last Admin: 03/29/18 23:21 Dose: 100 mg Escitalopram Oxalate (Lexapro -) 10 mg PO DAILY [facility] Last Admin: 04/07/18 09:35 Dose: 10 mg Finasteride (Proscar -) 5 mg PO DAILY [facility] Last Admin: 04/07/18 09:35 Dose: 5 mg Furosemide (Lasix Injection -) 100 mg IVPB BID@0600,1400 [facility] Last Admin: 04/07/18 05:19 Dose: 100 mg Glipizide (Glucotrol -) 2.5 mg PO DAILY@0700 [facility] Last Admin: 04/07/18 06:28 Dose: 2.5 mg Insulin Aspart (Novolog Vial Sliding Scale -) 1 vial SQ ACHS [facility]; Protocol Last Admin: 04/07/18 06:29 Dose: Not Given Metoprolol Succinate (Toprol Xl -) 25 mg PO DAILY [facility] Last Admin: 04/07/18 09:35 Dose: 25 mg Ondansetron HCl (Zofran Injection) 4 mg IVPUSH Q6H PRN PRN Reason: NAUSEA AND/OR VOMITING Oxycodone HCl (Roxicodone -) 5 mg PO Q6H PRN PRN Reason: PAIN LEVEL 6-10 Last Admin: 04/07/18 00:13 Dose: 5 mg Rivaroxaban (Xarelto -) 15 mg PO DAILY@1800 [facility] Last Admin: 04/06/18 17:15 Dose: 15 mg Rosuvastatin Calcium (Crestor -) 10 mg PO HS [facility] Last Admin: 04/06/18 21:37 Dose: 10 mg Tamsulosin HCl (Flomax -) 0.4 mg PO BID@0830,2200 [facility] Last Admin: 04/07/18 09:35 Dose: 0.4 mg Zolpidem Tartrate (Ambien -) 5 mg PO HS PRN PRN Reason: INSOMNIA Last Admin: 04/06/18 21:53 Dose: 5 mg - Objective Vital Signs Period Temp Pulse Resp BP Sys/Eisenberg Pulse Ox Last 24 Hr 97.6 F-98.3 F 88-108 19-20 96-111/61-74 94-94 Constitutional: Yes: No Distress, Calm Eyes: No: Sclera Icterus HENT: No: Nasal Congestion Cardiovascular: Yes: Regular Rate and Rhythm, JVD, S1, S2, Other (PMI non diplaced). No: Gallop, Murmur Respiratory: Yes: rales at bases bilaterally No: Accessory Muscle Use, Wheezes. On nasal canula O2 Gastrointestinal: Yes: Normal Bowel Sounds, Soft. 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 EF 15% dyskinetic apex, s/p LM PCI tele: sinus tachycardia, PVCs, nsvt 6 beats acute on chronic systolic HF s/p ICD - admitting symptoms concerning for CHF exacerbation, BNP 8000 - diuresed with lasix 80 iv bid earlier this admit, no standing wts done then. - changed to torsemide 80 mg BID (home dose), then eventually changed to torsemide 80 qd which he is currently on - med dosing has been limited by low bp--spirono and losartan from home were held here. metoprolol dose reduced. - 03/30: resumed lasix 80 iv bid. - 03/31: I/O (had curtis in) = 130/2150, wt up 181 to 183 lbs. renal fxn stable. received metolazone, lasix 80 mg IV TID - 04/01: UOP 2L, wt down 183 to 180. renal fxn stable. lasix 100 bid with metolazone given, metoprolol changed to succinate - 04/02: symptoms improving, weight down 180->179 lbs, lasix 100 IV BID continued - 04/03: lasix held this AM due to hypotension, continue lasix 100 mg IV BID. BUN /Cr improving - 04/04-: cr stable, sob better, wt down. cont iv lasix for now. - 04/06: curtis cath replaced by urology, diuresed well - 04/07 weight 177->179 lbs, Cr stable, short of breath with walking. continue IV lasix 100 mg BID - resume ARB +/- spironolactone later, once pt well diuresed and can reassess bp - continue metoprolol succinate 25 mg daily VTach: - brief NSVT on tele. - cont metoprolol (dose limited by low bp) - fluid status optimization as doing - K/Mag > 4/2 CAD s/p LM stent 04/2017 - cont statin, metoprolol, plavix pos troponin -borderline trop elevation with flat trend and nl ck, not c/w acs afib - restarted on metoprolol 25 mg BID with improved rates, up titrate as tolerated however has had low BP - cont Xarelto PACO on CKD - baseline creatin in 1.4 from office 12/31 - initial PACO here ? cardiorenal, ? obstructive - curtis placed, renal ultrasound, no obstruction - creatinine stable at baseline
--- NOTE | 2018-04-07 12:12 | PN ---
Progress Note, Physician History of Present Illness: PULMONARY ALERT,FEELING BETTER,-CP,-SOB - Current Medication List Current Medications: Active Medications Acetaminophen (Tylenol -) 650 mg PO Q6H PRN PRN Reason: PAIN LEVEL 6-10 Last Admin: 04/07/18 00:11 Dose: 650 mg Allopurinol (Zyloprim -) 100 mg PO DAILY [facility] Last Admin: 04/07/18 09:35 Dose: 100 mg Allopurinol (Zyloprim -) 100 mg PO HS PRN PRN Reason: PAIN Last Admin: 04/06/18 21:55 Dose: 100 mg Cephalexin HCl (Keflex -) 500 mg PO TID [facility] Last Admin: 04/07/18 05:19 Dose: 500 mg Cholecalciferol (Vitamin D3 -) 2,000 unit PO DAILY [facility] Last Admin: 04/07/18 09:35 Dose: 2,000 unit Clopidogrel Bisulfate (Plavix -) 75 mg PO DAILY [facility] Last Admin: 04/07/18 09:35 Dose: 75 mg Docusate Sodium (Colace -) 100 mg PO Q12H PRN PRN Reason: CONSTIPATION Last Admin: 03/29/18 23:21 Dose: 100 mg Escitalopram Oxalate (Lexapro -) 10 mg PO DAILY [facility] Last Admin: 04/07/18 09:35 Dose: 10 mg Finasteride (Proscar -) 5 mg PO DAILY [facility] Last Admin: 04/07/18 09:35 Dose: 5 mg Furosemide (Lasix Injection -) 100 mg IVPB BID@0600,1400 [facility] Last Admin: 04/07/18 05:19 Dose: 100 mg Glipizide (Glucotrol -) 2.5 mg PO DAILY@0700 [facility] Last Admin: 04/07/18 06:28 Dose: 2.5 mg Insulin Aspart (Novolog Vial Sliding Scale -) 1 vial SQ ACHS [facility]; Protocol Last Admin: 04/07/18 11:41 Dose: Not Given Metoprolol Succinate (Toprol Xl -) 25 mg PO DAILY [facility] Last Admin: 04/07/18 09:35 Dose: 25 mg Ondansetron HCl (Zofran Injection) 4 mg IVPUSH Q6H PRN PRN Reason: NAUSEA AND/OR VOMITING Oxycodone HCl (Roxicodone -) 5 mg PO Q6H PRN PRN Reason: PAIN LEVEL 6-10 Last Admin: 04/07/18 00:13 Dose: 5 mg Rivaroxaban (Xarelto -) 15 mg PO DAILY@1800 [facility] Last Admin: 04/06/18 17:15 Dose: 15 mg Rosuvastatin Calcium (Crestor -) 10 mg PO HS [facility] Last Admin: 04/06/18 21:37 Dose: 10 mg Tamsulosin HCl (Flomax -) 0.4 mg PO BID@0830,2200 [facility] Last Admin: 04/07/18 09:35 Dose: 0.4 mg Zolpidem Tartrate (Ambien -) 5 mg PO HS PRN PRN Reason: INSOMNIA Last Admin: 04/06/18 21:53 Dose: 5 mg - Objective Vital Signs: Vital Signs Temperature 97.6 F 04/07/18 09:28 Pulse Rate 103 H 04/07/18 09:28 Respiratory Rate 19 04/07/18 09:28 Blood Pressure 99/61 04/07/18 09:28 O2 Sat by Pulse Oximetry (%) 94 L 04/07/18 09:00 Constitutional: Yes: Well Nourished, Calm Eyes: Yes: WNL HENT: Yes: WNL Neck: Yes: WNL Cardiovascular: Yes: Pulse Irregular, S1, S2 Respiratory: Yes: Rales (BIBASILAR CRACKLES) Gastrointestinal: Yes: Normal Bowel Sounds, Soft Extremities: Yes: WNL Edema: No Labs: CBC, BMP 04/07/18 06:00 04/07/18 06:00 Problem List - Problems (1) AICD (automatic cardioverter/defibrillator) present Code(s): Z95.810 - PRESENCE OF AUTOMATIC (IMPLANTABLE) CARDIAC DEFIBRILLATOR (2) PACO (acute kidney injury) Code(s): N17.9 - ACUTE KIDNEY FAILURE, UNSPECIFIED (3) Acute systolic CHF (congestive heart failure) Code(s): I50.21 - ACUTE SYSTOLIC (CONGESTIVE) HEART FAILURE (4) CAD (coronary artery disease) Code(s): I25.10 - ATHSCL HEART DISEASE OF [place] CORONARY ARTERY W/O ANG PCTRS (5) Diabetes mellitus Code(s): E11.9 - TYPE 2 DIABETES MELLITUS WITHOUT COMPLICATIONS (6) Hypercholesteremia Code(s): E78.00 - PURE HYPERCHOLESTEROLEMIA, UNSPECIFIED (7) Elevated troponin I level Code(s): R74.8 - ABNORMAL LEVELS OF OTHER SERUM ENZYMES (8) Hematuria Code(s): R31.9 - HEMATURIA, UNSPECIFIED (9) Hypertension Code(s): I10 - ESSENTIAL (PRIMARY) HYPERTENSION Assessment/Plan IMP: Acute on Chronic Systolic Heart Failure improving Atrial Fibrillation CAD +Troponins likely Demand Ischemia Acute on Chronic Renal Failure HTN DM Hyperlipidemia Hematuria - lasix - monitor urine output, creatinine - daily weights - Incentive spirometry - rate controlled with Beta Mili - O2 to maintain saturation DR CÁRDENAS
--- NOTE | 2018-04-07 17:10 | PN ---
Progress Note, Physician History of Present Illness: Pt w/o CP, palpitations, abd pain, N, V. Pt is tolerating Holt cath. Pt is trying to drink water as much as possible ( pt states that understood from to drink 3 to 4 Quarts) - Current Medication List Current Medications: Active Medications Acetaminophen (Tylenol -) 650 mg PO Q6H PRN PRN Reason: PAIN LEVEL 6-10 Last Admin: 04/07/18 00:11 Dose: 650 mg Allopurinol (Zyloprim -) 100 mg PO DAILY [facility] Last Admin: 04/07/18 09:35 Dose: 100 mg Allopurinol (Zyloprim -) 100 mg PO HS PRN PRN Reason: PAIN Last Admin: 04/06/18 21:55 Dose: 100 mg Cephalexin HCl (Keflex -) 500 mg PO TID [facility] Last Admin: 04/07/18 13:38 Dose: 500 mg Cholecalciferol (Vitamin D3 -) 2,000 unit PO DAILY [facility] Last Admin: 04/07/18 09:35 Dose: 2,000 unit Clopidogrel Bisulfate (Plavix -) 75 mg PO DAILY [facility] Last Admin: 04/07/18 09:35 Dose: 75 mg Docusate Sodium (Colace -) 100 mg PO Q12H PRN PRN Reason: CONSTIPATION Last Admin: 03/29/18 23:21 Dose: 100 mg Escitalopram Oxalate (Lexapro -) 10 mg PO DAILY [facility] Last Admin: 04/07/18 09:35 Dose: 10 mg Finasteride (Proscar -) 5 mg PO DAILY [facility] Last Admin: 04/07/18 09:35 Dose: 5 mg Furosemide (Lasix Injection -) 100 mg IVPB BID@0600,1400 [facility] Last Admin: 04/07/18 13:38 Dose: 100 mg Glipizide (Glucotrol -) 2.5 mg PO DAILY@0700 [facility] Last Admin: 04/07/18 06:28 Dose: 2.5 mg Insulin Aspart (Novolog Vial Sliding Scale -) 1 vial SQ ACHS [facility]; Protocol Last Admin: 04/07/18 16:29 Dose: Not Given Metoprolol Succinate (Toprol Xl -) 25 mg PO DAILY [facility] Last Admin: 04/07/18 09:35 Dose: 25 mg Ondansetron HCl (Zofran Injection) 4 mg IVPUSH Q6H PRN PRN Reason: NAUSEA AND/OR VOMITING Oxycodone HCl (Roxicodone -) 5 mg PO Q6H PRN PRN Reason: PAIN LEVEL 6-10 Last Admin: 04/07/18 00:13 Dose: 5 mg Rivaroxaban (Xarelto -) 15 mg PO DAILY@1800 [facility] Last Admin: 04/06/18 17:15 Dose: 15 mg Rosuvastatin Calcium (Crestor -) 10 mg PO HS [facility] Last Admin: 04/06/18 21:37 Dose: 10 mg Tamsulosin HCl (Flomax -) 0.4 mg PO BID@0830,2200 [facility] Last Admin: 04/07/18 09:35 Dose: 0.4 mg Zolpidem Tartrate (Ambien -) 5 mg PO HS PRN PRN Reason: INSOMNIA Last Admin: 04/06/18 21:53 Dose: 5 mg - Objective Vital Signs: Vital Signs Temperature 98.1 F 04/07/18 14:00 Pulse Rate 96 H 04/07/18 14:00 Respiratory Rate 20 04/07/18 14:00 Blood Pressure 102/62 04/07/18 14:00 O2 Sat by Pulse Oximetry (%) 94 L 04/07/18 09:00 Constitutional: Yes: No Distress, Calm, Other (Holt present, blody urine 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 No: Tenderness Edema: No Neurological: Yes: Alert, Oriented Labs: CBC, BMP 04/07/18 06:00 04/07/18 06:00 Problem List - Problems (1) Acute systolic CHF (congestive heart failure) Code(s): I50.21 - ACUTE SYSTOLIC (CONGESTIVE) HEART FAILURE (2) Elevated troponin I level Code(s): R74.8 - ABNORMAL LEVELS OF OTHER SERUM ENZYMES (3) Hypotension Code(s): I95.9 - HYPOTENSION, UNSPECIFIED (4) PACO (acute kidney injury) Code(s): N17.9 - ACUTE KIDNEY FAILURE, UNSPECIFIED (5) CRF (chronic renal failure) Code(s): N18.9 - CHRONIC KIDNEY DISEASE, UNSPECIFIED (6) Hypercholesteremia Code(s): E78.00 - PURE HYPERCHOLESTEROLEMIA, UNSPECIFIED (7) Hypertension Code(s): I10 - ESSENTIAL (PRIMARY) HYPERTENSION (8) Pleural effusion Code(s): J90 - PLEURAL EFFUSION, NOT ELSEWHERE CLASSIFIED (9) CAD (coronary artery disease) Code(s): I25.10 - ATHSCL HEART DISEASE OF [place] CORONARY ARTERY W/O ANG PCTRS (10) AICD (automatic cardioverter/defibrillator) present Code(s): Z95.810 - PRESENCE OF AUTOMATIC (IMPLANTABLE) CARDIAC DEFIBRILLATOR (11) PAF (paroxysmal atrial fibrillation) Code(s): I48.0 - PAROXYSMAL ATRIAL FIBRILLATION (12) Urinary retention Code(s): R33.9 - RETENTION OF URINE, UNSPECIFIED (13) Hematuria Code(s): R31.9 - HEMATURIA, UNSPECIFIED Assessment/Plan I recommended to pt to avoid drinking over 2 quarts (already did it) of water until also will discuss with Cardio. I explained to pt that in general might be good to drink more water to have an increase UO, in his case CHF would be a limiting factor, especially that postop developed SOB secondary to worsening CHF that required restarting IV Lasix s/p TUVP (03/27/2018); Holt was removed, urinating well, then developed urinary retention; Holt cath was reinserted yesterday. Pt is on Lasix IVP BID secondary to dyspnea/ CHF exacerbation; breathing is improving with IV Lasix; to monitor renal function (BUN trending up) Pt on Xarelto and Plavix. Pt was admitted to ICU (03/10/2018), transferred to Telemetry. Serial CE -stable; CE were found to be elevated in the settings of PACO and CHF ( probable demand ischemia) ICU/CCM, Cardio, Renal, consults are appreciated. Home med on hold at admission: Losartan, Spironolactone, Torsemide, Metformin. Pt on Glipizide. BGM with Novolog coverage. Pt is tolerating Metoprolol; pt's blood presure is improved. Pt would benefit of ACEI or ARB; can be restarted as tolerated. AM labs. Pt's case was d/w pt's nurse.
--- NOTE | 2018-04-07 17:43 | PN ---
Progress Note (short form) - Note Progress Note: covering dr cardoza #PACO on ? 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 +/- obstruction/urinary retention #CHF Exacerbation #BPH with retention #Renal Cysts pmhx- CHF, Hypertension, HLD, DM Current Medications Acetaminophen (Tylenol -) 650 mg PO Q6H PRN PRN Reason: PAIN LEVEL 6-10 Last Admin: 04/07/18 00:11 Dose: 650 mg Allopurinol (Zyloprim -) 100 mg PO DAILY [facility] Last Admin: 04/07/18 09:35 Dose: 100 mg Allopurinol (Zyloprim -) 100 mg PO HS PRN PRN Reason: PAIN Last Admin: 04/06/18 21:55 Dose: 100 mg Cephalexin HCl (Keflex -) 500 mg PO TID [facility] Last Admin: 04/07/18 13:38 Dose: 500 mg Cholecalciferol (Vitamin D3 -) 2,000 unit PO DAILY [facility] Last Admin: 04/07/18 09:35 Dose: 2,000 unit Clopidogrel Bisulfate (Plavix -) 75 mg PO DAILY [facility] Last Admin: 04/07/18 09:35 Dose: 75 mg Docusate Sodium (Colace -) 100 mg PO Q12H PRN PRN Reason: CONSTIPATION Last Admin: 03/29/18 23:21 Dose: 100 mg Escitalopram Oxalate (Lexapro -) 10 mg PO DAILY [facility] Last Admin: 04/07/18 09:35 Dose: 10 mg Finasteride (Proscar -) 5 mg PO DAILY [facility] Last Admin: 04/07/18 09:35 Dose: 5 mg Furosemide (Lasix Injection -) 100 mg IVPB BID@0600,1400 [facility] Last Admin: 04/07/18 13:38 Dose: 100 mg Glipizide (Glucotrol -) 2.5 mg PO DAILY@0700 [facility] Last Admin: 04/07/18 06:28 Dose: 2.5 mg Insulin Aspart (Novolog Vial Sliding Scale -) 1 vial SQ ACHS [facility]; Protocol Last Admin: 04/07/18 16:29 Dose: Not Given Metoprolol Succinate (Toprol Xl -) 25 mg PO DAILY [facility] Last Admin: 04/07/18 09:35 Dose: 25 mg Ondansetron HCl (Zofran Injection) 4 mg IVPUSH Q6H PRN PRN Reason: NAUSEA AND/OR VOMITING Oxycodone HCl (Roxicodone -) 5 mg PO Q6H PRN PRN Reason: PAIN LEVEL 6-10 Last Admin: 04/07/18 00:13 Dose: 5 mg Rivaroxaban (Xarelto -) 15 mg PO DAILY@1800 [facility] Last Admin: 04/06/18 17:15 Dose: 15 mg Rosuvastatin Calcium (Crestor -) 10 mg PO HS [facility] Last Admin: 04/06/18 21:37 Dose: 10 mg Tamsulosin HCl (Flomax -) 0.4 mg PO BID@0830,2200 [facility] Last Admin: 04/07/18 09:35 Dose: 0.4 mg Zolpidem Tartrate (Ambien -) 5 mg PO HS PRN PRN Reason: INSOMNIA Last Admin: 04/06/18 21:53 Dose: 5 mg Last Vital Signs Temp Pulse Resp BP Pulse Ox 98.1 F 96 H 20 102/62 94 L 04/07/18 14:00 04/07/18 14:00 04/07/18 14:00 04/07/18 14:00 04/07/18 09:00 s/p curtis insertion feels better Lungs clear Heart reg Abd soft nontender ext no edema CBC, BMP 04/07/18 06:00 04/07/18 06:00 CBC, BMP 04/05/18 10:30 04/06/18 06:00 IMP- Cardiomyopathy s/p BPH amd s/p TUR Plan- gu f/u renal function ok so far
[2018-04-07] MEDS: RIVAROXABAN 15 MG TABLET PO SCH (18:19)
[2018-04-07] MEDS: ZOLPIDEM TARTRATE 5 MG TABLET PO PRN (22:16)
[2018-04-07] MEDS: ROSUVASTATIN CA 10 MG TABLET (FP) PO SCH (22:16)
[2018-04-07] MEDS: ALLOPURINOL 100 MG TABLET (FP) PO PRN (22:21)
[2018-04-08] MEDS: FUROSEMIDE 100 MG/10 ML INJECTABLE VIAL IVPB SCH ×2 (06:15→13:55)
[2018-04-08] MEDS: INSULIN SLIDING SCALE (NOVOLOG) 1 VIAL SQ SCH ×4 (06:16→23:12)
[2018-04-08] MEDS: glipiZIDE 5 MG TABLET (FP) PO SCH (06:16)
[2018-04-08] MEDS: CEPHALEXIN MONOHYDRATE 500 MG CAPSULE (UD) PO SCH ×2 (06:16→13:55)
[2018-04-08 07:02] LABS: HEMATOCRIT 37.7 % (35.4-49); MEAN CELL VOLUME 84.5 fl (80-96); MEAN PLT VOLUME 7.5 fl (7.5-11.1); PLATELET COUNT 223 K/MM3 (134-434); RBC 4.45 M/mm3 (4.00-5.60); RDW 17.5 % (11.9-15.9); WHITE BLOOD COUNT 11.6 K/mm3 (4.0-10.0)
[2018-04-08 07:16] LABS: ANION GAP 8 MMOL/L (8-16); BLOOD UREA NITROGEN 52 mg/dL (7-18); CALCIUM 9.1 mg/dL (8.5-10.1); CHLORIDE 94 mmol/L (98-107); CO2 30 mmol/L (21-32); CREATININE 1.5 mg/dL (0.55-1.3); GLUCOSE,RANDOM 178 mg/dL (74-106); POTASSIUM 3.9 mmol/L (3.5-5.1); SODIUM 132 mmol/L (136-145)
[2018-04-08] MEDS: TAMSULOSIN HCL 0.4 MG CAP PO SCH ×2 (08:33→23:09)
[2018-04-08] MEDS: oxyCODONE HCL 5 MG TABLET PO PRN (09:31)
[2018-04-08] MEDS: metoPROLOL SUCCINATE 25 MG TAB.SR.24H (FP) PO SCH (09:31)
[2018-04-08] MEDS: ESCITALOPRAM OXALATE 10 MG TABLET (FP) PO SCH (09:31)
[2018-04-08] MEDS: CLOPIDOGREL BISULFATE 75 MG TABLET (FP) PO SCH (09:31)
[2018-04-08] MEDS: FINASTERIDE 5 MG TABLET (FP) PO SCH (09:31)
[2018-04-08] MEDS: ACETAMINOPHEN 325 MG TABLET (FP) PO PRN (09:31)
[2018-04-08] MEDS: CHOLECALCIFEROL (VITAMIN D3) 1,000 UNIT TABLET (FP) PO SCH (09:31)
[2018-04-08] MEDS: ALLOPURINOL 100 MG TABLET (FP) PO SCH (09:32)
--- NOTE | 2018-04-08 10:27 | PN ---
Progress Note (short form) - Note Progress Note: cc: sob s: no sob chest pain, palps, dizzy, lightheadedness. feels tired ex cigs Current Medications Acetaminophen (Tylenol -) 650 mg PO Q6H PRN PRN Reason: PAIN LEVEL 6-10 Last Admin: 04/08/18 09:31 Dose: 650 mg Allopurinol (Zyloprim -) 100 mg PO DAILY [facility] Last Admin: 04/08/18 09:32 Dose: 100 mg Allopurinol (Zyloprim -) 100 mg PO HS PRN PRN Reason: PAIN Last Admin: 04/07/18 22:21 Dose: 100 mg Cephalexin HCl (Keflex -) 500 mg PO TID [facility] Last Admin: 04/08/18 06:16 Dose: 500 mg Cholecalciferol (Vitamin D3 -) 2,000 unit PO DAILY [facility] Last Admin: 04/08/18 09:31 Dose: 2,000 unit Clopidogrel Bisulfate (Plavix -) 75 mg PO DAILY [facility] Last Admin: 04/08/18 09:31 Dose: 75 mg Docusate Sodium (Colace -) 100 mg PO Q12H PRN PRN Reason: CONSTIPATION Last Admin: 18 23:21 Dose: 100 mg Escitalopram Oxalate (Lexapro -) 10 mg PO DAILY [facility] Last Admin: 04/08/18 09:31 Dose: 10 mg Finasteride (Proscar -) 5 mg PO DAILY [facility] Last Admin: 04/08/18 09:31 Dose: 5 mg Furosemide (Lasix Injection -) 100 mg IVPB BID@0600,1400 [facility] Last Admin: 04/08/18 06:15 Dose: 100 mg Glipizide (Glucotrol -) 2.5 mg PO DAILY@0700 [facility] Last Admin: 04/08/18 06:16 Dose: 2.5 mg Insulin Aspart (Novolog Vial Sliding Scale -) 1 vial SQ ACHS [facility]; Protocol Last Admin: 04/08/18 06:16 Dose: Not Given Metoprolol Succinate (Toprol Xl -) 25 mg PO DAILY [facility] Last Admin: 04/08/18 09:31 Dose: 25 mg Ondansetron HCl (Zofran Injection) 4 mg IVPUSH Q6H PRN PRN Reason: NAUSEA AND/OR VOMITING Oxycodone HCl (Roxicodone -) 5 mg PO Q6H PRN PRN Reason: PAIN LEVEL 6-10 Last Admin: 04/08/18 09:31 Dose: 5 mg Rivaroxaban (Xarelto -) 15 mg PO DAILY@1800 [facility] Last Admin: 04/07/18 18:19 Dose: 15 mg Rosuvastatin Calcium (Crestor -) 10 mg PO HS [facility] Last Admin: 04/07/18 22:16 Dose: 10 mg Tamsulosin HCl (Flomax -) 0.4 mg PO BID@0830,2200 [facility] Last Admin: 04/08/18 08:33 Dose: 0.4 mg Zolpidem Tartrate (Ambien -) 5 mg PO HS PRN PRN Reason: INSOMNIA Last Admin: 04/07/18 22:16 Dose: 5 mg - Objective Vital Signs Period Temp Pulse Resp BP Sys/Eisenberg Pulse Ox Last 24 Hr 97.8 F-98.1 F 89-101 18-20 102-114/62-73 92-93 Constitutional: Yes: No Distress, Calm Eyes: No: Sclera Icterus HENT: No: Nasal Congestion Cardiovascular: Yes: Regular Rate and Rhythm, JVD, S1, S2, Other (PMI non diplaced). No: Gallop, Murmur Respiratory: Yes: rales at bases bilaterally No: Accessory Muscle Use, Wheezes. On nasal canula O2 Gastrointestinal: Yes: Normal Bowel Sounds, Soft. No: Tenderness Extremities: No: Cyanosis Edema: No Integumentary: No: Jaundice diaphoresis Neurological: Yes: Alert, Oriented (x3) Psychiatric: No: Agitated Assessment/Plan echo with definity 07/2017 dilated LV, EF 20-25%, with apical AK, HK of inf and lat [place], grade II diastolic dysfunction, cath 04/2017 MLM 80-90% with severe calc, pLAD [employer] fills with collat from LCX and RCA. EF 15% dyskinetic apex, s/p LM PCI tele: sinus tachycardia, PVCs, nsvt 6 beats acute on chronic systolic HF s/p ICD - admitting symptoms concerning for CHF exacerbation, BNP 8000 - diuresed with lasix 80 iv bid earlier this admit, no standing wts done then. - changed to torsemide 80 mg BID (home dose), then eventually changed to torsemide 80 qd which he is currently on - med dosing has been limited by low bp--spirono and losartan from home were held here. metoprolol dose reduced. - 03/30: resumed lasix 80 iv bid. - 03/31: I/O (had curtis in) = 130/2150, wt up 181 to 183 lbs. renal fxn stable. received metolazone, lasix 80 mg IV TID - 04/01: UOP 2L, wt down 183 to 180. renal fxn stable. lasix 100 bid with metolazone given, metoprolol changed to succinate - 04/02: symptoms improving, weight down 180->179 lbs, lasix 100 IV BID continued - 04/03: lasix held this AM due to hypotension, continue lasix 100 mg IV BID. BUN /Cr improving - 04/04-: cr stable, sob better, wt down. cont iv lasix for now. - 04/06: curtis cath replaced by urology, diuresed well - 04/07 weight 177->179 lbs, Cr stable, short of breath with walking. continue IV lasix 100 mg BID - 04/08 weight 179->181 lbs, Cr rising, 1.5 today. continue lasix 100 mg IV BID , defer additional metolazone - resume ARB +/- spironolactone later, once pt well diuresed and can reassess bp - continue metoprolol succinate 25 mg daily VTach: - brief NSVT on tele. - cont metoprolol (dose limited by low bp) - fluid status optimization as doing - K/Mag > 4/2 CAD s/p LM stent 04/2017 - cont statin, metoprolol, plavix pos troponin -borderline trop elevation with flat trend and nl ck, not c/w acs afib - restarted on metoprolol 25 mg BID with improved rates, up titrate as tolerated however has had low BP - cont Xarelto PACO on CKD - baseline creatin in 1.4 from office 12/31 - initial PACO here ? cardiorenal, ? obstructive - curtis placed, renal ultrasound, no obstruction - creatinine stable at baseline
--- NOTE | 2018-04-08 11:29 | PN ---
Progress Note, Physician History of Present Illness: pulmonary sleepy,-resp distress,+ kelley - Current Medication List Current Medications: Active Medications Acetaminophen (Tylenol -) 650 mg PO Q6H PRN PRN Reason: PAIN LEVEL 6-10 Last Admin: 04/08/18 09:31 Dose: 650 mg Allopurinol (Zyloprim -) 100 mg PO DAILY [facility] Last Admin: 04/08/18 09:32 Dose: 100 mg Allopurinol (Zyloprim -) 100 mg PO HS PRN PRN Reason: PAIN Last Admin: 04/07/18 22:21 Dose: 100 mg Cephalexin HCl (Keflex -) 500 mg PO TID [facility] Last Admin: 04/08/18 06:16 Dose: 500 mg Cholecalciferol (Vitamin D3 -) 2,000 unit PO DAILY [facility] Last Admin: 04/08/18 09:31 Dose: 2,000 unit Clopidogrel Bisulfate (Plavix -) 75 mg PO DAILY [facility] Last Admin: 04/08/18 09:31 Dose: 75 mg Docusate Sodium (Colace -) 100 mg PO Q12H PRN PRN Reason: CONSTIPATION Last Admin: 18 23:21 Dose: 100 mg Escitalopram Oxalate (Lexapro -) 10 mg PO DAILY [facility] Last Admin: 04/08/18 09:31 Dose: 10 mg Finasteride (Proscar -) 5 mg PO DAILY [facility] Last Admin: 04/08/18 09:31 Dose: 5 mg Furosemide (Lasix Injection -) 100 mg IVPB BID@0600,1400 [facility] Last Admin: 04/08/18 06:15 Dose: 100 mg Glipizide (Glucotrol -) 2.5 mg PO DAILY@0700 [facility] Last Admin: 04/08/18 06:16 Dose: 2.5 mg Insulin Aspart (Novolog Vial Sliding Scale -) 1 vial SQ ACHS [facility]; Protocol Last Admin: 04/08/18 06:16 Dose: Not Given Metoprolol Succinate (Toprol Xl -) 25 mg PO DAILY [facility] Last Admin: 04/08/18 09:31 Dose: 25 mg Ondansetron HCl (Zofran Injection) 4 mg IVPUSH Q6H PRN PRN Reason: NAUSEA AND/OR VOMITING Oxycodone HCl (Roxicodone -) 5 mg PO Q6H PRN PRN Reason: PAIN LEVEL 6-10 Last Admin: 04/08/18 09:31 Dose: 5 mg Rivaroxaban (Xarelto -) 15 mg PO DAILY@1800 [facility] Last Admin: 04/07/18 18:19 Dose: 15 mg Rosuvastatin Calcium (Crestor -) 10 mg PO HS [facility] Last Admin: 04/07/18 22:16 Dose: 10 mg Tamsulosin HCl (Flomax -) 0.4 mg PO BID@0830,2200 [facility] Last Admin: 04/08/18 08:33 Dose: 0.4 mg Zolpidem Tartrate (Ambien -) 5 mg PO HS PRN PRN Reason: INSOMNIA Last Admin: 04/07/18 22:16 Dose: 5 mg - Objective Vital Signs: Vital Signs Temperature 97.8 F 04/08/18 09:17 Pulse Rate 101 H 04/08/18 09:17 Respiratory Rate 20 04/08/18 09:17 Blood Pressure 109/67 04/08/18 09:17 O2 Sat by Pulse Oximetry (%) 92 L 04/08/18 09:00 Constitutional: Yes: Well Nourished, Other (sleepy) Eyes: Yes: WNL HENT: Yes: WNL Neck: Yes: WNL Cardiovascular: Yes: Pulse Irregular, S1, S2 Respiratory: Yes: Rales (few bibasailr crackles) Gastrointestinal: Yes: Normal Bowel Sounds, Soft Extremities: Yes: WNL Edema: No Labs: CBC, BMP 04/08/18 06:00 04/08/18 06:00 Problem List - Problems (1) AICD (automatic cardioverter/defibrillator) present Code(s): Z95.810 - PRESENCE OF AUTOMATIC (IMPLANTABLE) CARDIAC DEFIBRILLATOR (2) PACO (acute kidney injury) Code(s): N17.9 - ACUTE KIDNEY FAILURE, UNSPECIFIED (3) Acute systolic CHF (congestive heart failure) Code(s): I50.21 - ACUTE SYSTOLIC (CONGESTIVE) HEART FAILURE (4) CAD (coronary artery disease) Code(s): I25.10 - ATHSCL HEART DISEASE OF [place] CORONARY ARTERY W/O ANG PCTRS (5) Diabetes mellitus Code(s): E11.9 - TYPE 2 DIABETES MELLITUS WITHOUT COMPLICATIONS (6) Hypercholesteremia Code(s): E78.00 - PURE HYPERCHOLESTEROLEMIA, UNSPECIFIED (7) Elevated troponin I level Code(s): R74.8 - ABNORMAL LEVELS OF OTHER SERUM ENZYMES (8) Hematuria Code(s): R31.9 - HEMATURIA, UNSPECIFIED (9) Hypertension Code(s): I10 - ESSENTIAL (PRIMARY) HYPERTENSION Assessment/Plan IMP: Acute on Chronic Systolic Heart Failure improving Atrial Fibrillation CAD +Troponins likely Demand Ischemia Acute on Chronic Renal Failure HTN DM Hyperlipidemia Hematuria - lasix - monitor urine output, creatinine - daily weights - Incentive spirometry - rate controlled with Beta Mili - O2 to maintain saturation - chest x-ray am DR CÁRDENAS
--- NOTE | 2018-04-08 12:10 | PN ---
Progress Note (short form) - Note Progress Note: Renal follow up for PACO Pt seen and examined at the bedside events from the weekend were reviewed curtis re-inserted over the weekend making urine sob improved appears weak no pain Vital Signs Temperature 97.8 F 04/08/18 09:17 Pulse Rate 101 H 04/08/18 09:17 Respiratory Rate 20 04/08/18 09:17 Blood Pressure 109/67 04/08/18 09:17 O2 Sat by Pulse Oximetry (%) 92 L 04/08/18 09:00 Intake & Output 04/05/18 04/06/18 04/07/18 04/08/18 23:59 23:59 23:59 23:59 Intake Total 1170 390 420 50 Output Total 2000 4500 2300 300 Balance -830 -5650 -9400 -250 Weight 80.467 kg 81.193 kg 82.214 kg NAD RRR, No M/R slighly rales on LLL, right lung sounds cleared soft NT/ND no Le edema CBC, BMP 04/08/18 06:00 04/08/18 06:00 Current Medications Acetaminophen (Tylenol -) 650 mg PO Q6H PRN PRN Reason: PAIN LEVEL 6-10 Last Admin: 04/08/18 09:31 Dose: 650 mg Allopurinol (Zyloprim -) 100 mg PO DAILY [facility] Last Admin: 04/08/18 09:32 Dose: 100 mg Allopurinol (Zyloprim -) 100 mg PO HS PRN PRN Reason: PAIN Last Admin: 04/07/18 22:21 Dose: 100 mg Cephalexin HCl (Keflex -) 500 mg PO TID [facility] Last Admin: 04/08/18 06:16 Dose: 500 mg Cholecalciferol (Vitamin D3 -) 2,000 unit PO DAILY [facility] Last Admin: 04/08/18 09:31 Dose: 2,000 unit Clopidogrel Bisulfate (Plavix -) 75 mg PO DAILY [facility] Last Admin: 04/08/18 09:31 Dose: 75 mg Docusate Sodium (Colace -) 100 mg PO Q12H PRN PRN Reason: CONSTIPATION Last Admin: 03/29/18 23:21 Dose: 100 mg Escitalopram Oxalate (Lexapro -) 10 mg PO DAILY [facility] Last Admin: 04/08/18 09:31 Dose: 10 mg Finasteride (Proscar -) 5 mg PO DAILY [facility] Last Admin: 04/08/18 09:31 Dose: 5 mg Furosemide (Lasix Injection -) 100 mg IVPB BID@0600,1400 [facility] Last Admin: 04/08/18 06:15 Dose: 100 mg Glipizide (Glucotrol -) 2.5 mg PO DAILY@0700 [facility] Last Admin: 04/08/18 06:16 Dose: 2.5 mg Insulin Aspart (Novolog Vial Sliding Scale -) 1 vial SQ [facility]; Protocol Last Admin: 04/08/18 11:29 Dose: Not Given Metoprolol Succinate (Toprol Xl -) 25 mg PO DAILY [facility] Last Admin: 04/08/18 09:31 Dose: 25 mg Ondansetron HCl (Zofran Injection) 4 mg IVPUSH Q6H PRN PRN Reason: NAUSEA AND/OR VOMITING Oxycodone HCl (Roxicodone -) 5 mg PO Q6H PRN PRN Reason: PAIN LEVEL 6-10 Last Admin: 04/08/18 09:31 Dose: 5 mg Rivaroxaban (Xarelto -) 15 mg PO DAILY@1800 [facility] Last Admin: 04/07/18 18:19 Dose: 15 mg Rosuvastatin Calcium (Crestor -) 10 mg PO HS [facility] Last Admin: 04/07/18 22:16 Dose: 10 mg Tamsulosin HCl (Flomax -) 0.4 mg PO BID@0830,2200 [facility] Last Admin: 04/08/18 08:33 Dose: 0.4 mg Zolpidem Tartrate (Ambien -) 5 mg PO HS PRN PRN Reason: INSOMNIA Last Admin: 04/07/18 22:16 Dose: 5 mg 78 year old gentleman with Hx of CHF, Hypertension, HLD, DM who presented with SOB and admitted for CHF exacerbation with PACO. #PACO on ? 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
--- NOTE | 2018-04-08 12:28 | PN ---
Progress Note (short form) - Note Progress Note: UROLOGY NOTE. PT. WITH UTI AND AUR, ROACH-CLEAR, URINE-CLEAR, ABD. SOFT, N/T. pLAN D/C ROACH,OOB WILL F/U IN OFFICE.
[2018-04-08] MEDS: RIVAROXABAN 15 MG TABLET PO SCH (17:21)
[2018-04-08] MEDS ORDERED: PT OWN MED DRAWER 7, Y5N ONE (17:21)
--- NOTE | 2018-04-08 18:47 | PN ---
Progress Note, Physician History of Present Illness: Pt w/o CP, palpitations, abd pain, N, V. Pt is urinating (since Holt was removed today). - Current Medication List Current Medications: Active Medications Acetaminophen (Tylenol -) 650 mg PO Q6H PRN PRN Reason: PAIN LEVEL 6-10 Last Admin: 04/08/18 09:31 Dose: 650 mg Allopurinol (Zyloprim -) 100 mg PO DAILY [facility] Last Admin: 04/08/18 09:32 Dose: 100 mg Allopurinol (Zyloprim -) 100 mg PO HS PRN PRN Reason: PAIN Last Admin: 04/07/18 22:21 Dose: 100 mg Cephalexin HCl (Keflex -) 500 mg PO TID [facility] Last Admin: 04/08/18 13:55 Dose: 500 mg Cholecalciferol (Vitamin D3 -) 2,000 unit PO DAILY [facility] Last Admin: 04/08/18 09:31 Dose: 2,000 unit Clopidogrel Bisulfate (Plavix -) 75 mg PO DAILY [facility] Last Admin: 04/08/18 09:31 Dose: 75 mg Docusate Sodium (Colace -) 100 mg PO Q12H PRN PRN Reason: CONSTIPATION Last Admin: 18 23:21 Dose: 100 mg Escitalopram Oxalate (Lexapro -) 10 mg PO DAILY [facility] Last Admin: 04/08/18 09:31 Dose: 10 mg Finasteride (Proscar -) 5 mg PO DAILY [facility] Last Admin: 04/08/18 09:31 Dose: 5 mg Furosemide (Lasix Injection -) 100 mg IVPB BID@0600,1400 [facility] Last Admin: 04/08/18 13:55 Dose: 100 mg Glipizide (Glucotrol -) 2.5 mg PO DAILY@0700 [facility] Last Admin: 04/08/18 06:16 Dose: 2.5 mg Insulin Aspart (Novolog Vial Sliding Scale -) 1 vial SQ ACHS [facility]; Protocol Last Admin: 04/08/18 17:19 Dose: 2 units Metoprolol Succinate (Toprol Xl -) 25 mg PO DAILY [facility] Last Admin: 04/08/18 09:31 Dose: 25 mg Ondansetron HCl (Zofran Injection) 4 mg IVPUSH Q6H PRN PRN Reason: NAUSEA AND/OR VOMITING Oxycodone HCl (Roxicodone -) 5 mg PO Q6H PRN PRN Reason: PAIN LEVEL 6-10 Last Admin: 04/08/18 09:31 Dose: 5 mg Rivaroxaban (Xarelto -) 15 mg PO DAILY@1800 [facility] Last Admin: 04/08/18 17:21 Dose: 15 mg Rosuvastatin Calcium (Crestor -) 10 mg PO HS [facility] Last Admin: 04/07/18 22:16 Dose: 10 mg Tamsulosin HCl (Flomax -) 0.4 mg PO BID@0830,2200 [facility] Last Admin: 04/08/18 08:33 Dose: 0.4 mg Zolpidem Tartrate (Ambien -) 5 mg PO HS PRN PRN Reason: INSOMNIA Last Admin: 04/07/18 22:16 Dose: 5 mg - Objective Vital Signs: Vital Signs Temperature 97.5 F L 04/08/18 16:30 Pulse Rate 91 H 04/08/18 16:30 Respiratory Rate 18 04/08/18 16:30 Blood Pressure 107/61 04/08/18 16:30 O2 Sat by Pulse Oximetry (%) 92 L 04/08/18 09:00 Constitutional: Yes: No Distress, Calm Cardiovascular: Yes: Regular Rate and Rhythm, S1, S2 Respiratory: Yes: Regular, Other (coarse at bases) Gastrointestinal: Yes: Normal Bowel Sounds, Soft. No: Tenderness Edema: No Neurological: Yes: Alert, Oriented Labs: CBC, BMP 04/08/18 06:00 04/08/18 06:00 Problem List - Problems (1) Acute systolic CHF (congestive heart failure) Code(s): I50.21 - ACUTE SYSTOLIC (CONGESTIVE) HEART FAILURE (2) Elevated troponin I level Code(s): R74.8 - ABNORMAL LEVELS OF OTHER SERUM ENZYMES (3) Hypotension Code(s): I95.9 - HYPOTENSION, UNSPECIFIED (4) PACO (acute kidney injury) Code(s): N17.9 - ACUTE KIDNEY FAILURE, UNSPECIFIED (5) CRF (chronic renal failure) Code(s): N18.9 - CHRONIC KIDNEY DISEASE, UNSPECIFIED (6) Hypercholesteremia Code(s): E78.00 - PURE HYPERCHOLESTEROLEMIA, UNSPECIFIED (7) Hypertension Code(s): I10 - ESSENTIAL (PRIMARY) HYPERTENSION (8) Pleural effusion Code(s): J90 - PLEURAL EFFUSION, NOT ELSEWHERE CLASSIFIED (9) CAD (coronary artery disease) Code(s): I25.10 - ATHSCL HEART DISEASE OF [place] CORONARY ARTERY W/O ANG PCTRS (10) AICD (automatic cardioverter/defibrillator) present Code(s): Z95.810 - PRESENCE OF AUTOMATIC (IMPLANTABLE) CARDIAC DEFIBRILLATOR (11) PAF (paroxysmal atrial fibrillation) Code(s): I48.0 - PAROXYSMAL ATRIAL FIBRILLATION (12) Urinary retention Code(s): R33.9 - RETENTION OF URINE, UNSPECIFIED (13) Hematuria Code(s): R31.9 - HEMATURIA, UNSPECIFIED Assessment/Plan Holt was removed today( at noon); to monitor UO. s/p TUVP (03/27/2018); Holt was removed, urinating well, then developed urinary retention; Holt cath was reinserted yesterday. Pt is on Lasix IVP BID secondary to dyspnea/ CHF exacerbation. Pt on Xarelto and Plavix. Pt was admitted to ICU (03/10/2018), transferred to Telemetry. Serial CE -stable; CE were found to be elevated in the settings of PACO and CHF ( probable demand ischemia) ICU/CCM, Cardio, Renal, consults are appreciated. Home med on hold at admission: Losartan, Spironolactone, Torsemide, Metformin. Pt on Glipizide. BGM with Novolog coverage. Pt is tolerating Metoprolol; pt's blood presure is improved. Pt would benefit of ACEI or ARB; can be restarted as tolerated. AM labs. Pt's case was d/w pt's nurse.
[2018-04-08] MEDS: ALLOPURINOL 100 MG TABLET (FP) PO PRN (23:09)
[2018-04-08] MEDS: ROSUVASTATIN CA 10 MG TABLET (FP) PO SCH (23:09)
[2018-04-08] MEDS: ZOLPIDEM TARTRATE 5 MG TABLET PO PRN (23:09)
[2018-04-09 06:15] LABS: BASO % 0.5 % (0-2.0); EOS % 0.6 % (0-4.5); HEMATOCRIT 38.2 % (35.4-49); HEMOGLOBIN 12.2 GM/dL (11.7-16.9); LYMPH % 7.8 % (8-40); MCH 26.8 pg (25.7-33.7); MCHC 31.8 g/dl (32.0-35.9); MEAN CELL VOLUME 84.3 fl (80-96); MEAN PLT VOLUME 7.4 fl (7.5-11.1); MONO % 6.8 % (3.8-10.2); NEUT % 84.3 % (42.8-82.8); PLATELET COUNT 222 K/MM3 (134-434); RBC 4.53 M/mm3 (4.00-5.60); RDW 17.5 % (11.9-15.9); WHITE BLOOD COUNT 10.9 K/mm3 (4.0-10.0)
[2018-04-09] MEDS: FUROSEMIDE 100 MG/10 ML INJECTABLE VIAL IVPB SCH ×2 (06:28→14:18)
[2018-04-09] MEDS: glipiZIDE 5 MG TABLET (FP) PO SCH (06:28)
[2018-04-09] MEDS: INSULIN SLIDING SCALE (NOVOLOG) 1 VIAL SQ SCH ×4 (06:29→22:41)
[2018-04-09 06:44] LABS: ANION GAP 14 MMOL/L (8-16); BLOOD UREA NITROGEN 56 mg/dL (7-18); CALCIUM 9.4 mg/dL (8.5-10.1); CHLORIDE 98 mmol/L (98-107); CO2 26 mmol/L (21-32); CREATININE 1.3 mg/dL (0.55-1.3); GLUCOSE,RANDOM 163 mg/dL (74-106); MAGNESIUM 2.2 mg/dL (1.8-2.4); PHOSPHOROUS 4.1 mg/dL (2.5-4.9); POTASSIUM 3.9 mmol/L (3.5-5.1); SODIUM 137 mmol/L (136-145)
[2018-04-09] MEDS: TAMSULOSIN HCL 0.4 MG CAP PO SCH ×2 (08:30→22:42)
[2018-04-09] MEDS: CHOLECALCIFEROL (VITAMIN D3) 1,000 UNIT TABLET (FP) PO SCH (10:32)
[2018-04-09] MEDS: metoPROLOL SUCCINATE 25 MG TAB.SR.24H (FP) PO SCH (10:32)
[2018-04-09] MEDS: FINASTERIDE 5 MG TABLET (FP) PO SCH (10:32)
[2018-04-09] MEDS: ESCITALOPRAM OXALATE 10 MG TABLET (FP) PO SCH (10:32)
[2018-04-09] MEDS: CLOPIDOGREL BISULFATE 75 MG TABLET (FP) PO SCH (10:32)
[2018-04-09] MEDS: ALLOPURINOL 100 MG TABLET (FP) PO SCH (10:32)
--- NOTE | 2018-04-09 11:31 | PN ---
Progress Note (short form) - Note Progress Note: cc: sob s: complains of feeling tired, sob. no chest pain, palps, dizzy, lightheadedness. ex cigs Current Medications Acetaminophen (Tylenol -) 650 mg PO Q6H PRN PRN Reason: PAIN LEVEL 6-10 Last Admin: 04/08/18 09:31 Dose: 650 mg Allopurinol (Zyloprim -) 100 mg PO DAILY [facility] Last Admin: 04/09/18 10:32 Dose: 100 mg Allopurinol (Zyloprim -) 100 mg PO HS PRN PRN Reason: PAIN Last Admin: 04/08/18 23:09 Dose: 100 mg Cholecalciferol (Vitamin D3 -) 2,000 unit PO DAILY [facility] Last Admin: 04/09/18 10:32 Dose: 2,000 unit Clopidogrel Bisulfate (Plavix -) 75 mg PO DAILY [facility] Last Admin: 04/09/18 10:32 Dose: 75 mg Docusate Sodium (Colace -) 100 mg PO Q12H PRN PRN Reason: CONSTIPATION Last Admin: 03/29/18 23:21 Dose: 100 mg Escitalopram Oxalate (Lexapro -) 10 mg PO DAILY [facility] Last Admin: 04/09/18 10:32 Dose: 10 mg Finasteride (Proscar -) 5 mg PO DAILY [facility] Last Admin: 04/09/18 10:32 Dose: 5 mg Furosemide (Lasix Injection -) 100 mg IVPB BID@0600,1400 [facility] Last Admin: 04/09/18 06:28 Dose: 100 mg Glipizide (Glucotrol -) 2.5 mg PO DAILY@0700 [facility] Last Admin: 04/09/18 06:28 Dose: 2.5 mg Insulin Aspart (Novolog Vial Sliding Scale -) 1 vial SQ [facility]; Protocol Last Admin: 04/09/18 06:29 Dose: Not Given Metoprolol Succinate (Toprol Xl -) 25 mg PO DAILY [facility] Last Admin: 04/09/18 10:32 Dose: 25 mg Ondansetron HCl (Zofran Injection) 4 mg IVPUSH Q6H PRN PRN Reason: NAUSEA AND/OR VOMITING Oxycodone HCl (Roxicodone -) 5 mg PO Q6H PRN PRN Reason: PAIN LEVEL 6-10 Last Admin: 04/08/18 09:31 Dose: 5 mg Rivaroxaban (Xarelto -) 15 mg PO DAILY@1800 [facility] Last Admin: 04/08/18 17:21 Dose: 15 mg Rosuvastatin Calcium (Crestor -) 10 mg PO HS [facility] Last Admin: 04/08/18 23:09 Dose: 10 mg Tamsulosin HCl (Flomax -) 0.4 mg PO BID@0830,2200 [facility] Last Admin: 04/09/18 08:30 Dose: 0.4 mg Zolpidem Tartrate (Ambien -) 5 mg PO HS PRN PRN Reason: INSOMNIA Last Admin: 04/08/18 23:09 Dose: 5 mg - Objective Vital Signs Period Temp Pulse Resp BP Sys/Eisenberg Pulse Ox Last 24 Hr 97.5 F-98.8 F 91-101 18-20 104-114/61-74 92-93 Constitutional: Yes: No Distress, Calm Eyes: No: Sclera Icterus HENT: No: Nasal Congestion Cardiovascular: Yes: Regular Rate and Rhythm, JVD, S1, S2, Other (PMI non diplaced). No: Gallop, Murmur Respiratory: Yes: rales at bases bilaterally No: Accessory Muscle Use, Wheezes. On nasal canula O2 Gastrointestinal: Yes: Normal Bowel Sounds, Soft. No: Tenderness Extremities: No: Cyanosis Edema: No Integumentary: No: Jaundice diaphoresis Neurological: Yes: Alert, Oriented (x3) Psychiatric: No: Agitated Assessment/Plan echo with definity 07/2017 dilated LV, EF 20-25%, with apical AK, HK of inf and lat [place], grade II diastolic dysfunction, cath 04/2017 MLM 80-90% with severe calc, p[employer] fills with collat from LCX and RCA. EF 15% dyskinetic apex, s/p LM PCI tele: sinus tachycardia, PVCs, nsvt 6 beats acute on chronic systolic HF s/p ICD - admitting symptoms concerning for CHF exacerbation, BNP 8000 - diuresed with lasix 80 iv bid earlier this admit, no standing wts done then. - changed to torsemide 80 mg BID (home dose), then eventually changed to torsemide 80 qd which he is currently on - med dosing has been limited by low bp--spirono and losartan from home were held here. metoprolol dose reduced. - 03/30: resumed lasix 80 iv bid. - 03/31: I/O (had curtis in) = 130/2150, wt up 181 to 183 lbs. renal fxn stable. received metolazone, lasix 80 mg IV TID - 04/01: UOP 2L, wt down 183 to 180. renal fxn stable. lasix 100 bid with metolazone given, metoprolol changed to succinate - 04/02: symptoms improving, weight down 180->179 lbs, lasix 100 IV BID continued - 04/03: lasix held this AM due to hypotension, continue lasix 100 mg IV BID. BUN /Cr improving - 04/04-: cr stable, sob better, wt down. cont iv lasix for now. - 04/06: curtis cath replaced by urology, diuresed well - 04/07 weight 177->179 lbs, Cr stable, short of breath with walking. continue IV lasix 100 mg BID - 04/08 weight 179->181 lbs, Cr rising, 1.5 today. continue lasix 100 mg IV BID , defer additional metolazone - 04/09 Cr improving however UOP down. curtis removed. CXR shows increased congestion, shira pleural effusions. add metolazone 5 mg today, cont lasix 100 mg IV BID - resume ARB +/- spironolactone later, once pt well diuresed and can reassess bp - continue metoprolol succinate 25 mg daily VTach: - brief NSVT on tele. - cont metoprolol (dose limited by low bp) - fluid status optimization as doing - K/Mag > 4/2 CAD s/p LM stent 04/2017 - cont statin, metoprolol, plavix pos troponin -borderline trop elevation with flat trend and nl ck, not c/w acs afib - restarted on metoprolol 25 mg BID with improved rates, up titrate as tolerated however has had low BP - cont Xarelto PACO on CKD - baseline creatin in 1.4 from office 12/31 - initial PACO here ? cardiorenal, ? obstructive - curtis placed, renal ultrasound, no obstruction - creatinine stable at baseline - renal, Dr. Casey, following
--- NOTE | 2018-04-09 12:58 | PN ---
Progress Note, Physician History of Present Illness: pulmonary awake,weak,dyspneic - Current Medication List Current Medications: Active Medications Acetaminophen (Tylenol -) 650 mg PO Q6H PRN PRN Reason: PAIN LEVEL 6-10 Last Admin: 04/08/18 09:31 Dose: 650 mg Allopurinol (Zyloprim -) 100 mg PO DAILY [facility] Last Admin: 04/09/18 10:32 Dose: 100 mg Allopurinol (Zyloprim -) 100 mg PO HS PRN PRN Reason: PAIN Last Admin: 04/08/18 23:09 Dose: 100 mg Cholecalciferol (Vitamin D3 -) 2,000 unit PO DAILY [facility] Last Admin: 04/09/18 10:32 Dose: 2,000 unit Clopidogrel Bisulfate (Plavix -) 75 mg PO DAILY [facility] Last Admin: 04/09/18 10:32 Dose: 75 mg Docusate Sodium (Colace -) 100 mg PO Q12H PRN PRN Reason: CONSTIPATION Last Admin: 03/29/18 23:21 Dose: 100 mg Escitalopram Oxalate (Lexapro -) 10 mg PO DAILY [facility] Last Admin: 04/09/18 10:32 Dose: 10 mg Finasteride (Proscar -) 5 mg PO DAILY [facility] Last Admin: 04/09/18 10:32 Dose: 5 mg Furosemide (Lasix Injection -) 100 mg IVPB BID@0600,1400 [facility] Last Admin: 04/09/18 06:28 Dose: 100 mg Glipizide (Glucotrol -) 2.5 mg PO DAILY@0700 [facility] Last Admin: 04/09/18 06:28 Dose: 2.5 mg Insulin Aspart (Novolog Vial Sliding Scale -) 1 vial SQ ACHS [facility]; Protocol Last Admin: 04/09/18 11:57 Dose: Not Given Metolazone (Zaroxolyn -) 5 mg PO ONCE ONE Stop: 04/09/18 13:31 Metoprolol Succinate (Toprol Xl -) 25 mg PO DAILY [facility] Last Admin: 04/09/18 10:32 Dose: 25 mg Ondansetron HCl (Zofran Injection) 4 mg IVPUSH Q6H PRN PRN Reason: NAUSEA AND/OR VOMITING Oxycodone HCl (Roxicodone -) 5 mg PO Q6H PRN PRN Reason: PAIN LEVEL 6-10 Last Admin: 04/08/18 09:31 Dose: 5 mg Rivaroxaban (Xarelto -) 15 mg PO DAILY@1800 [facility] Last Admin: 04/08/18 17:21 Dose: 15 mg Rosuvastatin Calcium (Crestor -) 10 mg PO HS [facility] Last Admin: 04/08/18 23:09 Dose: 10 mg Tamsulosin HCl (Flomax -) 0.4 mg PO BID@0830,2200 [facility] Last Admin: 04/09/18 08:30 Dose: 0.4 mg Zolpidem Tartrate (Ambien -) 5 mg PO HS PRN PRN Reason: INSOMNIA Last Admin: 04/08/18 23:09 Dose: 5 mg - Objective Vital Signs: Vital Signs Temperature 97.6 F 04/09/18 10:00 Pulse Rate 101 H 04/09/18 10:00 Respiratory Rate 20 04/09/18 10:00 Blood Pressure 112/72 04/09/18 10:00 O2 Sat by Pulse Oximetry (%) 93 L 04/09/18 09:00 Constitutional: Yes: Well Nourished, Mild Distress Eyes: Yes: WNL HENT: Yes: WNL Neck: Yes: WNL Cardiovascular: Yes: Pulse Irregular, S1, S2 Respiratory: Yes: Rales (bilateral rales) Gastrointestinal: Yes: Normal Bowel Sounds, Soft, Distention Extremities: Yes: WNL Edema: Yes Labs: CBC, BMP 04/09/18 06:00 04/09/18 06:00 - ....Imaging Chest X-ray: Report Reviewed, Image Reviewed (increased pulmonary vascular congestion) Problem List - Problems (1) AICD (automatic cardioverter/defibrillator) present Code(s): Z95.810 - PRESENCE OF AUTOMATIC (IMPLANTABLE) CARDIAC DEFIBRILLATOR (2) PACO (acute kidney injury) Code(s): N17.9 - ACUTE KIDNEY FAILURE, UNSPECIFIED (3) Acute systolic CHF (congestive heart failure) Code(s): I50.21 - ACUTE SYSTOLIC (CONGESTIVE) HEART FAILURE (4) CAD (coronary artery disease) Code(s): I25.10 - ATHSCL HEART DISEASE OF [place] CORONARY ARTERY W/O ANG PCTRS (5) Diabetes mellitus Code(s): E11.9 - TYPE 2 DIABETES MELLITUS WITHOUT COMPLICATIONS (6) Hypercholesteremia Code(s): E78.00 - PURE HYPERCHOLESTEROLEMIA, UNSPECIFIED (7) Elevated troponin I level Code(s): R74.8 - ABNORMAL LEVELS OF OTHER SERUM ENZYMES (8) Hematuria Code(s): R31.9 - HEMATURIA, UNSPECIFIED (9) Hypertension Code(s): I10 - ESSENTIAL (PRIMARY) HYPERTENSION Assessment/Plan IMP: Acute on Chronic Systolic Heart Failure worsening Atrial Fibrillation CAD +Troponins likely Demand Ischemia Acute on Chronic Renal Failure HTN DM Hyperlipidemia Hematuria - iv lasix,zaroxlyn - monitor urine output, creatinine - daily weights - Incentive spirometry - rate controlled with Beta Mili - O2 to maintain saturation - chest x-ray am - nippv if pt developes increased respiratory distress - strict I+Os DR CÁRDENAS
[2018-04-09] MEDS ORDERED: METOLAZONE 2.5 MG TABLET (FP) PO ONE (13:30)
--- NOTE | 2018-04-09 18:27 | PN ---
Progress Note, Physician History of Present Illness: Pt w/o CP, palpitations, abd pain, N, V. Pt is breathing better now, then in AM - Current Medication List Current Medications: Active Medications Acetaminophen (Tylenol -) 650 mg PO Q6H PRN PRN Reason: PAIN LEVEL 6-10 Last Admin: 04/08/18 09:31 Dose: 650 mg Allopurinol (Zyloprim -) 100 mg PO DAILY [facility] Last Admin: 04/09/18 10:32 Dose: 100 mg Allopurinol (Zyloprim -) 100 mg PO HS PRN PRN Reason: PAIN Last Admin: 04/08/18 23:09 Dose: 100 mg Cholecalciferol (Vitamin D3 -) 2,000 unit PO DAILY [facility] Last Admin: 04/09/18 10:32 Dose: 2,000 unit Clopidogrel Bisulfate (Plavix -) 75 mg PO DAILY [facility] Last Admin: 04/09/18 10:32 Dose: 75 mg Docusate Sodium (Colace -) 100 mg PO Q12H PRN PRN Reason: CONSTIPATION Last Admin: 03/29/18 23:21 Dose: 100 mg Escitalopram Oxalate (Lexapro -) 10 mg PO DAILY [facility] Last Admin: 04/09/18 10:32 Dose: 10 mg Finasteride (Proscar -) 5 mg PO DAILY [facility] Last Admin: 04/09/18 10:32 Dose: 5 mg Furosemide (Lasix Injection -) 100 mg IVPB BID@0600,1400 [facility] Last Admin: 04/09/18 14:18 Dose: 100 mg Glipizide (Glucotrol -) 2.5 mg PO DAILY@0700 [facility] Last Admin: 04/09/18 06:28 Dose: 2.5 mg Insulin Aspart (Novolog Vial Sliding Scale -) 1 vial SQ ACHS [facility]; Protocol Last Admin: 04/09/18 16:53 Dose: Not Given Metoprolol Succinate (Toprol Xl -) 25 mg PO DAILY [facility] Last Admin: 04/09/18 10:32 Dose: 25 mg Ondansetron HCl (Zofran Injection) 4 mg IVPUSH Q6H PRN PRN Reason: NAUSEA AND/OR VOMITING Oxycodone HCl (Roxicodone -) 5 mg PO Q6H PRN PRN Reason: PAIN LEVEL 6-10 Last Admin: 04/08/18 09:31 Dose: 5 mg Rivaroxaban (Xarelto -) 15 mg PO DAILY@1800 [facility] Last Admin: 04/08/18 17:21 Dose: 15 mg Rosuvastatin Calcium (Crestor -) 10 mg PO HS [facility] Last Admin: 04/08/18 23:09 Dose: 10 mg Tamsulosin HCl (Flomax -) 0.4 mg PO BID@0830,2200 [facility] Last Admin: 04/09/18 08:30 Dose: 0.4 mg Zolpidem Tartrate (Ambien -) 5 mg PO HS PRN PRN Reason: INSOMNIA Last Admin: 04/08/18 23:09 Dose: 5 mg - Objective Vital Signs: Vital Signs Temperature 97.8 F 04/09/18 16:17 Pulse Rate 98 H 04/09/18 16:17 Respiratory Rate 22 H 04/09/18 16:17 Blood Pressure 118/77 04/09/18 16:17 O2 Sat by Pulse Oximetry (%) 93 L 04/09/18 09:00 Constitutional: Yes: No Distress, Calm Cardiovascular: Yes: Regular Rate and Rhythm, S1, S2 Respiratory: Yes: Regular, CTA Bilaterally, Other (crackle at right base) Gastrointestinal: Yes: Normal Bowel Sounds, Soft. No: Tenderness Edema: No Labs: CBC, BMP 04/09/18 06:00 04/09/18 06:00 Problem List - Problems (1) Acute systolic CHF (congestive heart failure) Code(s): I50.21 - ACUTE SYSTOLIC (CONGESTIVE) HEART FAILURE (2) Elevated troponin I level Code(s): R74.8 - ABNORMAL LEVELS OF OTHER SERUM ENZYMES (3) Hypotension Code(s): I95.9 - HYPOTENSION, UNSPECIFIED (4) PACO (acute kidney injury) Code(s): N17.9 - ACUTE KIDNEY FAILURE, UNSPECIFIED (5) CRF (chronic renal failure) Code(s): N18.9 - CHRONIC KIDNEY DISEASE, UNSPECIFIED (6) Hypercholesteremia Code(s): E78.00 - PURE HYPERCHOLESTEROLEMIA, UNSPECIFIED (7) Hypertension Code(s): I10 - ESSENTIAL (PRIMARY) HYPERTENSION (8) Pleural effusion Code(s): J90 - PLEURAL EFFUSION, NOT ELSEWHERE CLASSIFIED (9) CAD (coronary artery disease) Code(s): I25.10 - ATHSCL HEART DISEASE OF [place] CORONARY ARTERY W/O ANG PCTRS (10) AICD (automatic cardioverter/defibrillator) present Code(s): Z95.810 - PRESENCE OF AUTOMATIC (IMPLANTABLE) CARDIAC DEFIBRILLATOR (11) PAF (paroxysmal atrial fibrillation) Code(s): I48.0 - PAROXYSMAL ATRIAL FIBRILLATION (12) Urinary retention Code(s): R33.9 - RETENTION OF URINE, UNSPECIFIED (13) Hematuria Code(s): R31.9 - HEMATURIA, UNSPECIFIED Assessment/Plan Pt received Metolazone today, in addition to IV Lasix. s/p TUVP (03/27/2018); Holt was removed, urinating well, then developed urinary retention; Holt cath was reinserted yesterday. Pt is on Lasix IVP BID secondary to dyspnea/ CHF exacerbation; breathing is improving with IV Lasix. Pt on Xarelto and Plavix. Pt was admitted to ICU (03/10/2018), transferred to Telemetry. Serial CE -stable; CE were found to be elevated in the settings of PACO and CHF ( probable demand ischemia) ICU/CCM, Cardio, Renal, consults are appreciated. Home med on hold at admission: Losartan, Spironolactone, Torsemide, Metformin. Pt on Glipizide. BGM with Novolog coverage. Pt is tolerating Metoprolol; pt's blood presure is improved. Pt would benefit of ACEI or ARB; can be restarted as tolerated. AM labs. At pt's request pt's condition was reviewed with his dg (Lidia); all questions were answered. Pt's case was d/w pt's nurse.
[2018-04-09] MEDS: RIVAROXABAN 15 MG TABLET PO SCH (18:29)
--- NOTE | 2018-04-09 21:05 | PN ---
Progress Note (short form) - Note Progress Note: Renal follow up for PACO Pt seen and examined at the bedside reports worsening sob depite IV Lasix foely discontinued yesterday no chest pain, abd pain making more urine s/p metolazone Vital Signs Temperature 97.4 F L 04/09/18 18:00 Pulse Rate 93 H 04/09/18 18:00 Respiratory Rate 20 04/09/18 18:00 Blood Pressure 104/56 L 04/09/18 18:00 O2 Sat by Pulse Oximetry (%) 93 L 04/09/18 09:00 Intake & Output 04/06/18 04/07/18 04/08/18 04/09/18 23:59 23:59 23:59 23:59 Intake Total 390 420 50 415 Output Total 4500 2300 450 400 Balance -4110 -1880 -400 15 Weight 80.467 kg 81.193 kg 82.214 kg NAD RRR, No M/R slighly rales on LLL, right lung sounds cleared soft NT/ND no Le edema CBC, BMP 04/09/18 06:00 04/09/18 06:00 Current Medications Acetaminophen (Tylenol -) 650 mg PO Q6H PRN PRN Reason: PAIN LEVEL 6-10 Last Admin: 04/08/18 09:31 Dose: 650 mg Allopurinol (Zyloprim -) 100 mg PO DAILY [facility] Last Admin: 04/09/18 10:32 Dose: 100 mg Allopurinol (Zyloprim -) 100 mg PO HS PRN PRN Reason: PAIN Last Admin: 04/08/18 23:09 Dose: 100 mg Cholecalciferol (Vitamin D3 -) 2,000 unit PO DAILY [facility] Last Admin: 04/09/18 10:32 Dose: 2,000 unit Clopidogrel Bisulfate (Plavix -) 75 mg PO DAILY [facility] Last Admin: 04/09/18 10:32 Dose: 75 mg Docusate Sodium (Colace -) 100 mg PO Q12H PRN PRN Reason: CONSTIPATION Last Admin: 03/29/18 23:21 Dose: 100 mg Escitalopram Oxalate (Lexapro -) 10 mg PO DAILY [facility] Last Admin: 04/09/18 10:32 Dose: 10 mg Finasteride (Proscar -) 5 mg PO DAILY [facility] Last Admin: 04/09/18 10:32 Dose: 5 mg Furosemide (Lasix Injection -) 100 mg IVPB BID@0600,1400 [facility] Last Admin: 04/09/18 14:18 Dose: 100 mg Glipizide (Glucotrol -) 2.5 mg PO DAILY@0700 [facility] Last Admin: 04/09/18 06:28 Dose: 2.5 mg Insulin Aspart (Novolog Vial Sliding Scale -) 1 vial SQ [facility]; Protocol Last Admin: 04/09/18 16:53 Dose: Not Given Metoprolol Succinate (Toprol Xl -) 25 mg PO DAILY [facility] Last Admin: 04/09/18 10:32 Dose: 25 mg Ondansetron HCl (Zofran Injection) 4 mg IVPUSH Q6H PRN PRN Reason: NAUSEA AND/OR VOMITING Oxycodone HCl (Roxicodone -) 5 mg PO Q6H PRN PRN Reason: PAIN LEVEL 6-10 Last Admin: 04/08/18 09:31 Dose: 5 mg Rivaroxaban (Xarelto -) 15 mg PO DAILY@1800 [facility] Last Admin: 04/09/18 18:29 Dose: 15 mg Rosuvastatin Calcium (Crestor -) 10 mg PO HS [facility] Last Admin: 04/08/18 23:09 Dose: 10 mg Tamsulosin HCl (Flomax -) 0.4 mg PO BID@0830,2200 [facility] Last Admin: 04/09/18 08:30 Dose: 0.4 mg Zolpidem Tartrate (Ambien -) 5 mg PO HS PRN PRN Reason: INSOMNIA Last Admin: 04/08/18 23:09 Dose: 5 mg 78 year old gentleman with Hx of CHF, Hypertension, HLD, DM who presented with SOB and admitted for CHF exacerbation with PACO. #PACO on ? 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
[2018-04-09] MEDS: ALLOPURINOL 100 MG TABLET (FP) PO PRN (22:42)
[2018-04-09] MEDS: ZOLPIDEM TARTRATE 5 MG TABLET PO PRN (22:42)
[2018-04-09] MEDS: ROSUVASTATIN CA 10 MG TABLET (FP) PO SCH (22:42)
[2018-04-10] MEDS: FUROSEMIDE 100 MG/10 ML INJECTABLE VIAL IVPB SCH ×2 (06:49→14:56)
[2018-04-10] MEDS: INSULIN SLIDING SCALE (NOVOLOG) 1 VIAL SQ SCH ×4 (06:49→23:07)
[2018-04-10] MEDS: glipiZIDE 5 MG TABLET (FP) PO SCH (06:49)
[2018-04-10 07:10] LABS: BASO % 0.4 % (0-2.0); EOS % 0.3 % (0-4.5); HEMATOCRIT 36.9 % (35.4-49); HEMOGLOBIN 11.6 GM/dL (11.7-16.9); MCH 26.6 pg (25.7-33.7); MCHC 31.6 g/dl (32.0-35.9); MEAN CELL VOLUME 84.2 fl (80-96); MEAN PLT VOLUME 7.5 fl (7.5-11.1); MONO % 6.3 % (3.8-10.2); PLATELET COUNT 237 K/MM3 (134-434); RBC 4.38 M/mm3 (4.00-5.60); RDW 17.7 % (11.9-15.9)
[2018-04-10 07:26] LABS: ANION GAP 12 MMOL/L (8-16); BLOOD UREA NITROGEN 60 mg/dL (7-18); CALCIUM 9.8 mg/dL (8.5-10.1); CHLORIDE 98 mmol/L (98-107); CO2 28 mmol/L (21-32); CREATININE 1.3 mg/dL (0.55-1.3); GLUCOSE,RANDOM 151 mg/dL (74-106); MAGNESIUM 2.3 mg/dL (1.8-2.4); PHOSPHOROUS 4.4 mg/dL (2.5-4.9); POTASSIUM 3.6 mmol/L (3.5-5.1); SODIUM 138 mmol/L (136-145)
[2018-04-10] MEDS: CHOLECALCIFEROL (VITAMIN D3) 1,000 UNIT TABLET (FP) PO SCH (09:56)
[2018-04-10] MEDS: CLOPIDOGREL BISULFATE 75 MG TABLET (FP) PO SCH (09:56)
[2018-04-10] MEDS: TAMSULOSIN HCL 0.4 MG CAP PO SCH ×2 (09:56→23:06)
[2018-04-10] MEDS: FINASTERIDE 5 MG TABLET (FP) PO SCH (09:56)
[2018-04-10] MEDS: ESCITALOPRAM OXALATE 10 MG TABLET (FP) PO SCH (09:56)
[2018-04-10] MEDS: ALLOPURINOL 100 MG TABLET (FP) PO SCH (09:56)
[2018-04-10] MEDS: metoPROLOL SUCCINATE 25 MG TAB.SR.24H (FP) PO SCH (09:56)
--- NOTE | 2018-04-10 11:09 | PN ---
Progress Note, Physician History of Present Illness: PULMONARY ALERT,FEELING BETTER,LESS DYSPNEIC - Current Medication List Current Medications: Active Medications Acetaminophen (Tylenol -) 650 mg PO Q6H PRN PRN Reason: PAIN LEVEL 6-10 Last Admin: 04/08/18 09:31 Dose: 650 mg Allopurinol (Zyloprim -) 100 mg PO DAILY [facility] Last Admin: 04/10/18 09:56 Dose: 100 mg Allopurinol (Zyloprim -) 100 mg PO HS PRN PRN Reason: PAIN Last Admin: 04/09/18 22:42 Dose: 100 mg Cholecalciferol (Vitamin D3 -) 2,000 unit PO DAILY [facility] Last Admin: 04/10/18 09:56 Dose: 2,000 unit Clopidogrel Bisulfate (Plavix -) 75 mg PO DAILY [facility] Last Admin: 04/10/18 09:56 Dose: 75 mg Docusate Sodium (Colace -) 100 mg PO Q12H PRN PRN Reason: CONSTIPATION Last Admin: 18 23:21 Dose: 100 mg Escitalopram Oxalate (Lexapro -) 10 mg PO DAILY [facility] Last Admin: 04/10/18 09:56 Dose: 10 mg Finasteride (Proscar -) 5 mg PO DAILY [facility] Last Admin: 04/10/18 09:56 Dose: 5 mg Furosemide (Lasix Injection -) 100 mg IVPB BID@0600,1400 [facility] Last Admin: 04/10/18 06:49 Dose: 100 mg Glipizide (Glucotrol -) 2.5 mg PO DAILY@0700 [facility] Last Admin: 04/10/18 06:49 Dose: 2.5 mg Insulin Aspart (Novolog Vial Sliding Scale -) 1 vial SQ ACHS [facility]; Protocol Last Admin: 04/10/18 06:49 Dose: Not Given Metoprolol Succinate (Toprol Xl -) 25 mg PO DAILY [facility] Last Admin: 04/10/18 09:56 Dose: 25 mg Ondansetron HCl (Zofran Injection) 4 mg IVPUSH Q6H PRN PRN Reason: NAUSEA AND/OR VOMITING Oxycodone HCl (Roxicodone -) 5 mg PO Q6H PRN PRN Reason: PAIN LEVEL 6-10 Last Admin: 04/08/18 09:31 Dose: 5 mg Rivaroxaban (Xarelto -) 15 mg PO DAILY@1800 [facility] Last Admin: 04/09/18 18:29 Dose: 15 mg Rosuvastatin Calcium (Crestor -) 10 mg PO HS [facility] Last Admin: 04/09/18 22:42 Dose: 10 mg Tamsulosin HCl (Flomax -) 0.4 mg PO BID@0830,2200 [facility] Last Admin: 04/10/18 09:56 Dose: 0.4 mg Zolpidem Tartrate (Ambien -) 5 mg PO HS PRN PRN Reason: INSOMNIA Last Admin: 04/09/18 22:42 Dose: 5 mg - Objective Vital Signs: Vital Signs Temperature 97.7 F 04/10/18 06:00 Pulse Rate 92 H 04/10/18 06:00 Respiratory Rate 16 04/10/18 06:00 Blood Pressure 102/70 04/10/18 06:00 O2 Sat by Pulse Oximetry (%) 92 L 04/09/18 21:00 Constitutional: Yes: Well Nourished, Calm Eyes: Yes: WNL HENT: Yes: WNL Neck: Yes: WNL Cardiovascular: Yes: Pulse Irregular, S1, S2 Respiratory: Yes: Rales (BIBASAILR RALES) Gastrointestinal: Yes: Normal Bowel Sounds, Soft Extremities: Yes: WNL Edema: No Labs: CBC, BMP 04/10/18 06:00 04/10/18 06:00 Problem List - Problems (1) AICD (automatic cardioverter/defibrillator) present Code(s): Z95.810 - PRESENCE OF AUTOMATIC (IMPLANTABLE) CARDIAC DEFIBRILLATOR (2) PACO (acute kidney injury) Code(s): N17.9 - ACUTE KIDNEY FAILURE, UNSPECIFIED (3) Acute systolic CHF (congestive heart failure) Code(s): I50.21 - ACUTE SYSTOLIC (CONGESTIVE) HEART FAILURE (4) CAD (coronary artery disease) Code(s): I25.10 - ATHSCL HEART DISEASE OF [place] CORONARY ARTERY W/O ANG PCTRS (5) Diabetes mellitus Code(s): E11.9 - TYPE 2 DIABETES MELLITUS WITHOUT COMPLICATIONS (6) Hypercholesteremia Code(s): E78.00 - PURE HYPERCHOLESTEROLEMIA, UNSPECIFIED (7) Elevated troponin I level Code(s): R74.8 - ABNORMAL LEVELS OF OTHER SERUM ENZYMES (8) Hematuria Code(s): R31.9 - HEMATURIA, UNSPECIFIED (9) Hypertension Code(s): I10 - ESSENTIAL (PRIMARY) HYPERTENSION Assessment/Plan IMP: Acute on Chronic Systolic Heart Failure worsening Atrial Fibrillation CAD +Troponins likely Demand Ischemia Acute on Chronic Renal Failure HTN DM Hyperlipidemia Hematuria - iv lasix - zaroxlyn as per Cardiology - monitor urine output, creatinine - daily weights - Incentive spirometry - rate controlled with Beta Mili - O2 to maintain saturation - chest x-ray am - nippv if pt developes increased respiratory distress - strict I+Os DR CÁRDENAS
[2018-04-10] MEDS ORDERED: METOLAZONE 5 MG TABLET PO ONE ×2 (11:19→12:00)
--- NOTE | 2018-04-10 11:22 | PN ---
Progress Note (short form) - Note Progress Note: cc: sob s: sob improving compared to yesterday, still dyspnea when walking to the bathroom. no chest pain, edema, palps, dizziness ex cigs Current Medications Acetaminophen (Tylenol -) 650 mg PO Q6H PRN PRN Reason: PAIN LEVEL 6-10 Last Admin: 04/08/18 09:31 Dose: 650 mg Allopurinol (Zyloprim -) 100 mg PO DAILY [facility] Last Admin: 04/10/18 09:56 Dose: 100 mg Allopurinol (Zyloprim -) 100 mg PO HS PRN PRN Reason: PAIN Last Admin: 04/09/18 22:42 Dose: 100 mg Cholecalciferol (Vitamin D3 -) 2,000 unit PO DAILY [facility] Last Admin: 04/10/18 09:56 Dose: 2,000 unit Clopidogrel Bisulfate (Plavix -) 75 mg PO DAILY [facility] Last Admin: 04/10/18 09:56 Dose: 75 mg Docusate Sodium (Colace -) 100 mg PO Q12H PRN PRN Reason: CONSTIPATION Last Admin: 18 23:21 Dose: 100 mg Escitalopram Oxalate (Lexapro -) 10 mg PO DAILY [facility] Last Admin: 04/10/18 09:56 Dose: 10 mg Finasteride (Proscar -) 5 mg PO DAILY [facility] Last Admin: 04/10/18 09:56 Dose: 5 mg Furosemide (Lasix Injection -) 100 mg IVPB BID@0600,1400 [facility] Last Admin: 04/10/18 06:49 Dose: 100 mg Glipizide (Glucotrol -) 2.5 mg PO DAILY@0700 [facility] Last Admin: 04/10/18 06:49 Dose: 2.5 mg Insulin Aspart (Novolog Vial Sliding Scale -) 1 vial SQ ACHS [facility]; Protocol Last Admin: 04/10/18 06:49 Dose: Not Given Metolazone (Zaroxolyn -) 5 mg PO ONCE ONE Stop: 04/10/18 11:20 Metoprolol Succinate (Toprol Xl -) 25 mg PO DAILY [facility] Last Admin: 04/10/18 09:56 Dose: 25 mg Ondansetron HCl (Zofran Injection) 4 mg IVPUSH Q6H PRN PRN Reason: NAUSEA AND/OR VOMITING Oxycodone HCl (Roxicodone -) 5 mg PO Q6H PRN PRN Reason: PAIN LEVEL 6-10 Last Admin: 04/08/18 09:31 Dose: 5 mg Rivaroxaban (Xarelto -) 15 mg PO DAILY@1800 [facility] Last Admin: 04/09/18 18:29 Dose: 15 mg Rosuvastatin Calcium (Crestor -) 10 mg PO HS [facility] Last Admin: 04/09/18 22:42 Dose: 10 mg Tamsulosin HCl (Flomax -) 0.4 mg PO BID@0830,2200 [facility] Last Admin: 04/10/18 09:56 Dose: 0.4 mg Zolpidem Tartrate (Ambien -) 5 mg PO HS PRN PRN Reason: INSOMNIA Last Admin: 04/09/18 22:42 Dose: 5 mg - Objective Vital Signs Period Temp Pulse Resp BP Sys/Eisenberg Pulse Ox Last 24 Hr 97.4 F-97.8 F 92-98 16-22 90-118/56-77 92 Constitutional: Yes: No Distress, Calm Eyes: No: Sclera Icterus HENT: No: Nasal Congestion Cardiovascular: Yes: Regular Rate and Rhythm, +JVD, S1, S2, Other (PMI non diplaced). No: Gallop, Murmur Respiratory: Yes: rales at bases bilaterally No: Accessory Muscle Use, Wheezes. On nasal canula O2 Gastrointestinal: Yes: Normal Bowel Sounds, Soft. No: Tenderness Extremities: No: Cyanosis Edema: No Integumentary: No: Jaundice diaphoresis Neurological: Yes: Alert, Oriented (x3) Psychiatric: No: Agitated Assessment/Plan echo with definity 07/2017 dilated LV, EF 20-25%, with apical AK, HK of inf and lat [place], grade II diastolic dysfunction, cath 04/2017 MLM 80-90% with severe calc, [facility] fills with collat from LCX and RCA. EF 15% dyskinetic apex, s/p LM PCI tele: sinus, PVCs acute on chronic systolic HF s/p ICD - admitting symptoms concerning for CHF exacerbation, BNP 8000 - diuresed with lasix 80 iv bid earlier this admit, no standing wts done then. - changed to torsemide 80 mg BID (home dose), then eventually changed to torsemide 80 qd which he is currently on - med dosing has been limited by low bp--spirono and losartan from home were held here. metoprolol dose reduced. - 03/30: resumed lasix 80 iv bid. - 03/31: I/O (had curtis in) = 130/2150, wt up 181 to 183 lbs. renal fxn stable. received metolazone, lasix 80 mg IV TID - 04/01: UOP 2L, wt down 183 to 180. renal fxn stable. lasix 100 bid with metolazone given, metoprolol changed to succinate - 04/02: symptoms improving, weight down 180->179 lbs, lasix 100 IV BID continued - 04/03: lasix held this AM due to hypotension, continue lasix 100 mg IV BID. BUN /Cr improving - 04/04-: cr stable, sob better, wt down. cont iv lasix for now. - 04/06: curtis cath replaced by urology, diuresed well - 04/07 weight 177->179 lbs, Cr stable, short of breath with walking. continue IV lasix 100 mg BID - 04/08 weight 179->181 lbs, Cr rising, 1.5 today. continue lasix 100 mg IV BID , defer additional metolazone - 04/09 Cr improving however UOP down. curtis removed. CXR shows increased congestion, shira pleural effusions. metolazone 5 mg, lasix 100 mg IV BID. bladder scan showed ~150 cc - 04/10 UOP improved, Cr stable. symptoms better, metolazone 5 mg again today, continue lasix 100 mg BID - resume ARB +/- spironolactone later, once pt well diuresed and can reassess bp - continue metoprolol succinate 25 mg daily VTach: - brief NSVT on tele. - cont metoprolol (dose limited by low bp) - fluid status optimization as doing - K/Mag > 4/2 CAD s/p LM stent 04/2017 - cont statin, metoprolol, plavix pos troponin -borderline trop elevation with flat trend and nl ck, not c/w acs afib - restarted on metoprolol 25 mg BID with improved rates, up titrate as tolerated however has had low BP - cont Xarelto PACO on CKD - baseline creatin in 1.4 from office 6/18 - initial PACO here ? cardiorenal, ? obstructive - curtis placed, renal ultrasound, no obstruction - creatinine stable at baseline - renal, Dr. Casey, following
--- NOTE | 2018-04-10 11:45 | PN ---
Progress Note, Physician History of Present Illness: Pt w/o SOB, CP, palpitations, abd pain, N, V. Pt is urinating better. - Current Medication List Current Medications: Active Medications Acetaminophen (Tylenol -) 650 mg PO Q6H PRN PRN Reason: PAIN LEVEL 6-10 Last Admin: 04/08/18 09:31 Dose: 650 mg Allopurinol (Zyloprim -) 100 mg PO DAILY [facility] Last Admin: 04/10/18 09:56 Dose: 100 mg Allopurinol (Zyloprim -) 100 mg PO HS PRN PRN Reason: PAIN Last Admin: 04/09/18 22:42 Dose: 100 mg Cholecalciferol (Vitamin D3 -) 2,000 unit PO DAILY [facility] Last Admin: 04/10/18 09:56 Dose: 2,000 unit Clopidogrel Bisulfate (Plavix -) 75 mg PO DAILY [facility] Last Admin: 04/10/18 09:56 Dose: 75 mg Docusate Sodium (Colace -) 100 mg PO Q12H PRN PRN Reason: CONSTIPATION Last Admin: 18 23:21 Dose: 100 mg Escitalopram Oxalate (Lexapro -) 10 mg PO DAILY [facility] Last Admin: 04/10/18 09:56 Dose: 10 mg Finasteride (Proscar -) 5 mg PO DAILY [facility] Last Admin: 04/10/18 09:56 Dose: 5 mg Furosemide (Lasix Injection -) 100 mg IVPB BID@0600,1400 [facility] Last Admin: 04/10/18 06:49 Dose: 100 mg Glipizide (Glucotrol -) 2.5 mg PO DAILY@0700 [facility] Last Admin: 04/10/18 06:49 Dose: 2.5 mg Insulin Aspart (Novolog Vial Sliding Scale -) 1 vial SQ ACHS [facility]; Protocol Last Admin: 04/10/18 06:49 Dose: Not Given Metolazone (Zaroxolyn -) 5 mg PO ONCE ONE Stop: 04/10/18 11:45 Metoprolol Succinate (Toprol Xl -) 25 mg PO DAILY [facility] Last Admin: 04/10/18 09:56 Dose: 25 mg Ondansetron HCl (Zofran Injection) 4 mg IVPUSH Q6H PRN PRN Reason: NAUSEA AND/OR VOMITING Oxycodone HCl (Roxicodone -) 5 mg PO Q6H PRN PRN Reason: PAIN LEVEL 6-10 Last Admin: 04/08/18 09:31 Dose: 5 mg Rivaroxaban (Xarelto -) 15 mg PO DAILY@1800 [facility] Last Admin: 04/09/18 18:29 Dose: 15 mg Rosuvastatin Calcium (Crestor -) 10 mg PO HS [facility] Last Admin: 04/09/18 22:42 Dose: 10 mg Tamsulosin HCl (Flomax -) 0.4 mg PO BID@0830,2200 [facility] Last Admin: 04/10/18 09:56 Dose: 0.4 mg Zolpidem Tartrate (Ambien -) 5 mg PO HS PRN PRN Reason: INSOMNIA Last Admin: 04/09/18 22:42 Dose: 5 mg - Objective Vital Signs: Vital Signs Temperature 97.7 F 04/10/18 06:00 Pulse Rate 92 H 04/10/18 06:00 Respiratory Rate 16 04/10/18 06:00 Blood Pressure 102/70 04/10/18 06:00 O2 Sat by Pulse Oximetry (%) 92 L 04/09/18 21:00 Constitutional: Yes: No Distress, Calm Cardiovascular: Yes: Pulse Irregular, S1, S2 Respiratory: Yes: Regular, CTA Bilaterally. No: Rales Gastrointestinal: Yes: Normal Bowel Sounds, Soft. No: Tenderness Edema: No Neurological: Yes: Alert, Oriented Labs: CBC, BMP 04/10/18 06:00 04/10/18 06:00 Problem List - Problems (1) Acute systolic CHF (congestive heart failure) Code(s): I50.21 - ACUTE SYSTOLIC (CONGESTIVE) HEART FAILURE (2) Elevated troponin I level Code(s): R74.8 - ABNORMAL LEVELS OF OTHER SERUM ENZYMES (3) Hypotension Code(s): I95.9 - HYPOTENSION, UNSPECIFIED (4) PACO (acute kidney injury) Code(s): N17.9 - ACUTE KIDNEY FAILURE, UNSPECIFIED (5) CRF (chronic renal failure) Code(s): N18.9 - CHRONIC KIDNEY DISEASE, UNSPECIFIED (6) Hypercholesteremia Code(s): E78.00 - PURE HYPERCHOLESTEROLEMIA, UNSPECIFIED (7) Hypertension Code(s): I10 - ESSENTIAL (PRIMARY) HYPERTENSION (8) Pleural effusion Code(s): J90 - PLEURAL EFFUSION, NOT ELSEWHERE CLASSIFIED (9) CAD (coronary artery disease) Code(s): I25.10 - ATHSCL HEART DISEASE OF [place] CORONARY ARTERY W/O ANG PCTRS (10) AICD (automatic cardioverter/defibrillator) present Code(s): Z95.810 - PRESENCE OF AUTOMATIC (IMPLANTABLE) CARDIAC DEFIBRILLATOR (11) PAF (paroxysmal atrial fibrillation) Code(s): I48.0 - PAROXYSMAL ATRIAL FIBRILLATION (12) Urinary retention Code(s): R33.9 - RETENTION OF URINE, UNSPECIFIED (13) Hematuria Code(s): R31.9 - HEMATURIA, UNSPECIFIED Assessment/Plan Pt to receive Metolazone again today, in addition to IV Lasix. To f/u AM labs s/p TUVP (03/27/2018); Holt was removed, urinating well, then developed urinary retention; Holt cath was reinserted yesterday. Pt is on Lasix IVP BID secondary to dyspnea/ CHF exacerbation; breathing is improving with IV Lasix. Pt on Xarelto and Plavix. Pt was admitted to ICU (03/10/2018), transferred to Telemetry. Serial CE -stable; CE were found to be elevated in the settings of PACO and CHF ( probable demand ischemia) ICU/CCM, Cardio, Renal, consults are appreciated. Home med on hold at admission: Losartan, Spironolactone, Torsemide, Metformin. Pt on Glipizide. BGM with Novolog coverage. Pt is tolerating Metoprolol; pt's blood presure is improved. Pt would benefit of ACEI or ARB; can be restarted as tolerated. Pt's case was d/w pt's nurse.
--- NOTE | 2018-04-10 13:21 | PN ---
Progress Note (short form) - Note Progress Note: Renal follow up for PACO Pt seen and examined at the bedside feels better today making more urine no cp, abd pain, N/V/D Vital Signs Temperature 98.7 F 04/10/18 10:00 Pulse Rate 99 H 04/10/18 10:00 Respiratory Rate 16 04/10/18 10:00 Blood Pressure 124/71 04/10/18 10:00 O2 Sat by Pulse Oximetry (%) 92 L 04/10/18 10:00 Intake & Output 04/07/18 04/08/18 04/09/18 04/10/18 23:59 23:59 23:59 23:59 Intake Total 420 50 545 50 Output Total 2300 450 750 250 Balance -1880 -400 -205 -200 Weight 81.193 kg 82.214 kg 81.817 kg NAD RRR, No M/R Dec BS lung bases soft NT/ND no Le edema CBC, BMP 04/10/18 06:00 04/10/18 06:00 Current Medications Acetaminophen (Tylenol -) 650 mg PO Q6H PRN PRN Reason: PAIN LEVEL 6-10 Last Admin: 04/08/18 09:31 Dose: 650 mg Allopurinol (Zyloprim -) 100 mg PO DAILY [facility] Last Admin: 04/10/18 09:56 Dose: 100 mg Allopurinol (Zyloprim -) 100 mg PO HS PRN PRN Reason: PAIN Last Admin: 04/09/18 22:42 Dose: 100 mg Cholecalciferol (Vitamin D3 -) 2,000 unit PO DAILY [facility] Last Admin: 04/10/18 09:56 Dose: 2,000 unit Clopidogrel Bisulfate (Plavix -) 75 mg PO DAILY [facility] Last Admin: 04/10/18 09:56 Dose: 75 mg Docusate Sodium (Colace -) 100 mg PO Q12H PRN PRN Reason: CONSTIPATION Last Admin: 03/29/18 23:21 Dose: 100 mg Escitalopram Oxalate (Lexapro -) 10 mg PO DAILY [facility] Last Admin: 04/10/18 09:56 Dose: 10 mg Finasteride (Proscar -) 5 mg PO DAILY [facility] Last Admin: 04/10/18 09:56 Dose: 5 mg Furosemide (Lasix Injection -) 100 mg IVPB BID@0600,1400 [facility] Last Admin: 04/10/18 06:49 Dose: 100 mg Glipizide (Glucotrol -) 2.5 mg PO DAILY@0700 [facility] Last Admin: 04/10/18 06:49 Dose: 2.5 mg Insulin Aspart (Novolog Vial Sliding Scale -) 1 vial SQ ACHS [facility]; Protocol Last Admin: 04/10/18 12:04 Dose: 2 units Metoprolol Succinate (Toprol Xl -) 25 mg PO DAILY [facility] Last Admin: 04/10/18 09:56 Dose: 25 mg Ondansetron HCl (Zofran Injection) 4 mg IVPUSH Q6H PRN PRN Reason: NAUSEA AND/OR VOMITING Oxycodone HCl (Roxicodone -) 5 mg PO Q6H PRN PRN Reason: PAIN LEVEL 6-10 Last Admin: 04/08/18 09:31 Dose: 5 mg Rivaroxaban (Xarelto -) 15 mg PO DAILY@1800 [facility] Last Admin: 04/09/18 18:29 Dose: 15 mg Rosuvastatin Calcium (Crestor -) 10 mg PO HS [facility] Last Admin: 04/09/18 22:42 Dose: 10 mg Tamsulosin HCl (Flomax -) 0.4 mg PO BID@0830,2200 [facility] Last Admin: 04/10/18 09:56 Dose: 0.4 mg Zolpidem Tartrate (Ambien -) 5 mg PO HS PRN PRN Reason: INSOMNIA Last Admin: 04/09/18 22:42 Dose: 5 mg 78 year old gentleman with Hx of CHF, Hypertension, HLD, DM who presented with SOB and admitted for CHF exacerbation with PACO. #PACO on ? 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
[2018-04-10] MEDS: RIVAROXABAN 15 MG TABLET PO SCH (17:51)
[2018-04-10] MEDS: ROSUVASTATIN CA 10 MG TABLET (FP) PO SCH (23:06)
[2018-04-10] MEDS: ZOLPIDEM TARTRATE 5 MG TABLET PO PRN (23:06)
[2018-04-10] MEDS: ALLOPURINOL 100 MG TABLET (FP) PO PRN (23:06)
[2018-04-11 06:06] LABS: BASO % 0.6 % (0-2.0); EOS % 0.9 % (0-4.5); HEMATOCRIT 37.2 % (35.4-49); HEMOGLOBIN 11.7 GM/dL (11.7-16.9); LYMPH % 8.5 % (8-40); MCH 26.2 pg (25.7-33.7); MCHC 31.4 g/dl (32.0-35.9); MEAN CELL VOLUME 83.3 fl (80-96); MEAN PLT VOLUME 7.3 fl (7.5-11.1); MONO % 7.5 % (3.8-10.2); NEUT % 82.5 % (42.8-82.8); PLATELET COUNT 235 K/MM3 (134-434); RBC 4.47 M/mm3 (4.00-5.60); RDW 17.4 % (11.9-15.9); WHITE BLOOD COUNT 12.3 K/mm3 (4.0-10.0)
[2018-04-11] MEDS: FUROSEMIDE 100 MG/10 ML INJECTABLE VIAL IVPB SCH ×2 (06:13→14:14)
[2018-04-11] MEDS: glipiZIDE 5 MG TABLET (FP) PO SCH (06:13)
[2018-04-11] MEDS: INSULIN SLIDING SCALE (NOVOLOG) 1 VIAL SQ SCH ×4 (06:13→21:25)
[2018-04-11] MEDS: ACETAMINOPHEN 325 MG TABLET (FP) PO PRN ×3 (06:13→21:17)
[2018-04-11 06:24] LABS: ANION GAP 13 MMOL/L (8-16); BLOOD UREA NITROGEN 57 mg/dL (7-18); CALCIUM 9.6 mg/dL (8.5-10.1); CHLORIDE 97 mmol/L (98-107); CO2 31 mmol/L (21-32); CREATININE 1.2 mg/dL (0.55-1.3); GLUCOSE,RANDOM 127 mg/dL (74-106); PHOSPHOROUS 3.8 mg/dL (2.5-4.9); SODIUM 141 mmol/L (136-145)
--- NOTE | 2018-04-11 09:42 | PN ---
Progress Note (short form) - Note Progress Note: UROLOGY NOTE. pt. developed UROLOGY NOTE.pt. developt acute urinary retention last night ,bladder scan= 800cc of urine in a desended bladder curtis placed and 800 cc of clear drained.
[2018-04-11] MEDS ORDERED: POTASSIUM CHLORIDE TABS 20 MEQ TABLET.ER (FP) PO ONE ×2 (10:00→13:00)
[2018-04-11] MEDS: CHOLECALCIFEROL (VITAMIN D3) 1,000 UNIT TABLET (FP) PO SCH (10:29)
[2018-04-11] MEDS: ESCITALOPRAM OXALATE 10 MG TABLET (FP) PO SCH (10:29)
[2018-04-11] MEDS: metoPROLOL SUCCINATE 25 MG TAB.SR.24H (FP) PO SCH (10:29)
[2018-04-11] MEDS: FINASTERIDE 5 MG TABLET (FP) PO SCH (10:29)
[2018-04-11] MEDS: TAMSULOSIN HCL 0.4 MG CAP PO SCH ×2 (10:29→21:16)
[2018-04-11] MEDS: ALLOPURINOL 100 MG TABLET (FP) PO SCH (10:29)
[2018-04-11] MEDS: CLOPIDOGREL BISULFATE 75 MG TABLET (FP) PO SCH (10:29)
--- NOTE | 2018-04-11 10:35 | PN ---
Progress Note (short form) - Note Progress Note: cc: sob s: no chest pain, palps, dizzy, lightheadedness. a little kelley still. ex cigs Current Medications Generic Name Dose Route Start Last Admin Trade Name Freq PRN Reason Stop Dose Admin Acetaminophen 650 mg 04/06/18 09:04 04/11/18 06:13 Tylenol - PO 650 mg Q6H PRN Administration PAIN LEVEL 6-10 Allopurinol 100 mg 03/28/18 10:00 04/11/18 10:29 Zyloprim - PO 100 mg DAILY [facility] Administration Allopurinol 100 mg 03/28/18 17:57 04/10/18 23:06 Zyloprim - PO 100 mg HS PRN Administration PAIN Cholecalciferol 2,000 unit 03/28/18 10:00 04/11/18 10:29 Vitamin D3 - PO 2,000 unit DAILY [facility] Administration Clopidogrel Bisulfate 75 mg 03/30/18 10:00 04/11/18 10:29 Plavix - PO 75 mg DAILY [facility] Administration Docusate Sodium 100 mg 03/27/18 16:05 03/29/18 23:21 Colace - PO 100 mg Q12H PRN Administration CONSTIPATION Escitalopram Oxalate 10 mg 03/28/18 10:00 04/11/18 10:29 Lexapro - PO 10 mg DAILY [facility] Administration Finasteride 5 mg 03/28/18 10:00 04/11/18 10:29 Proscar - PO 5 mg DAILY [facility] Administration Furosemide 100 mg 04/01/18 06:00 04/11/18 06:13 Lasix Injection - IVPB 100 mg BID@0600,1400 [facility] Administration Glipizide 2.5 mg 03/28/18 07:00 04/11/18 06:13 Glucotrol - PO 2.5 mg DAILY@0700 [facility] Administration Insulin Aspart 1 vial 03/27/18 16:30 04/11/18 06:13 Novolog Vial Sliding Scale - SQ Not Given ACHS [facility] Protocol Metolazone 7.5 mg 04/11/18 13:00 Zaroxolyn - PO 04/11/18 13:01 ONCE ONE Metoprolol Succinate 25 mg 03/31/18 10:00 04/11/18 10:29 Toprol Xl - PO 25 mg DAILY [facility] Administration Ondansetron HCl 4 mg 03/27/18 15:04 Zofran Injection IVPUSH Q6H PRN NAUSEA AND/OR VOMITING Potassium Chloride 40 meq 04/11/18 13:00 K-Dur - PO 04/11/18 13:01 ONCE ONE Rivaroxaban 15 mg 03/29/18 18:00 04/10/18 17:51 Xarelto - PO 15 mg DAILY@1800 [facility] Administration Rosuvastatin Calcium 10 mg 03/27/18 22:00 04/10/18 23:06 Crestor - PO 10 mg HS [facility] Administration Tamsulosin HCl 0.4 mg 03/27/18 22:00 04/11/18 10:29 Flomax - PO 0.4 mg BID@0830,2200 [facility] Administration - Objective Vital Signs Period Temp Pulse Resp BP Sys/Eisenberg Pulse Ox Last 24 Hr 97.8 F-98.7 F 91-97 18-20 100-111/58-74 96 Constitutional: Yes: No Distress, Calm Eyes: No: Sclera Icterus HENT: No: Nasal Congestion Cardiovascular: Yes: Regular Rate and Rhythm, JVD, S1, S2, Other (PMI non diplaced). No: Gallop, Murmur Respiratory: Yes: CTA Bilaterally. No: Accessory Muscle Use, Wheezes Gastrointestinal: Yes: Normal Bowel Sounds, Soft. No: Tenderness Extremities: No: Cyanosis Edema: No Integumentary: No: Jaundice diaphoresis Neurological: Yes: Alert, Oriented (x3) Psychiatric: No: Agitated Assessment/Plan echo with definity 07/2017 dilated LV, EF 20-25%, with apical AK, HK of inf and lat [place], grade II diastolic dysfunction, cath 04/2017 MLM 80-90% with severe calc, pLAD [employer] fills with collat from LCX and RCA. EF 15% dyskinetic apex, s/p LM PCI tele: sinus tachycardia, PVCs, nsvt 6 beats acute on chronic systolic HF s/p ICD - admitting symptoms concerning for CHF exacerbation, BNP 8000 - diuresed with lasix 80 iv bid earlier this admit, no standing wts done then. - changed to torsemide 80 mg BID (home dose), then eventually changed to torsemide 80 qd which he is currently on - med dosing has been limited by low bp--spirono and losartan from home were held here. metoprolol dose reduced. - 03/30: resumed lasix 80 iv bid. - 03/31: I/O (had curtis in) = 130/2150, wt up 181 to 183 lbs. renal fxn stable. received metolazone, lasix 80 mg IV TID - 04/01: UOP 2L, wt down 183 to 180. renal fxn stable. lasix 100 bid with metolazone given, metoprolol changed to succinate - 04/02: symptoms improving, weight down 180->179 lbs, lasix 100 IV BID continued - 04/03: lasix held this AM due to hypotension, continue lasix 100 mg IV BID. BUN /Cr improving - 04/04-: cr stable, sob better, wt down. cont iv lasix for now. - 04/06: curtis cath replaced by urology, diuresed well - 04/07 weight 177->179 lbs, Cr stable, short of breath with walking. continue IV lasix 100 mg BID - 04/08 weight 179->181 lbs, Cr rising, 1.5 today. continue lasix 100 mg IV BID , defer additional metolazone - 04/09 Cr improving however UOP down. curtis removed. CXR shows increased congestion, shira pleural effusions. metolazone 5 mg, lasix 100 mg IV BID. bladder scan showed ~150 cc - 04/10 UOP improved, Cr stable. symptoms better, metolazone 5 mg again today, continue lasix 100 mg BID -04/11: had urinary retention, curtis back in now with better uop. cont lasix 100 bid iv, metolazone 7.5 mg this afternoon. daily wts, chem7 - resume ARB +/- spironolactone later, once pt well diuresed and can reassess bp - continue metoprolol succinate 25 mg daily VTach: - brief NSVT on tele. - cont metoprolol (dose limited by low bp) - fluid status optimization as doing - K/Mag > 4/2 CAD s/p LM stent 04/2017 - cont statin, metoprolol, plavix pos troponin -borderline trop elevation with flat trend and nl ck, not c/w acs afib - restarted on metoprolol 25 mg BID with improved rates, up titrate as tolerated however has had low BP - cont Xarelto PACO on CKD - baseline creatin in 1.4 from office 12/31 - initial PACO here ? cardiorenal, ? obstructive - curtis placed, renal ultrasound, no obstruction - creatinine stable at baseline - renal following
[2018-04-11] MEDS ORDERED: METOLAZONE 2.5 MG TABLET (FP) PO ONE (13:00)
--- NOTE | 2018-04-11 13:17 | PN ---
Progress Note (short form) - Note Progress Note: PULMONARY Holt replaced overnight. States breathing is better today. Vital Signs Period Temp Pulse Resp BP Sys/Eisenberg Pulse Ox Last 24 Hr 97.8 F-98.7 F 85-97 18-20 95-111/58-74 96-96 Intake & Output 04/08/18 04/09/18 04/10/18 04/11/18 23:59 23:59 23:59 23:59 Intake Total 50 545 170 170 Output Total 680 038 1227 1800 Balance -400 -907 -3964 -3413 Weight 82.214 kg 81.817 kg 79.923 kg Gen: mildly tachypneic at rest Heart: irregular Lung: decreased breath sounds at the bases Abd: soft, nontender Ext: no edema CBC, BMP 04/11/18 05:30 04/11/18 05:30 Active Medications Acetaminophen (Tylenol -) 650 mg PO Q6H PRN PRN Reason: PAIN LEVEL 6-10 Last Admin: 04/11/18 06:13 Dose: 650 mg Allopurinol (Zyloprim -) 100 mg PO DAILY [facility] Last Admin: 04/11/18 10:29 Dose: 100 mg Allopurinol (Zyloprim -) 100 mg PO HS PRN PRN Reason: PAIN Last Admin: 04/10/18 23:06 Dose: 100 mg Cholecalciferol (Vitamin D3 -) 2,000 unit PO DAILY [facility] Last Admin: 04/11/18 10:29 Dose: 2,000 unit Clopidogrel Bisulfate (Plavix -) 75 mg PO DAILY [facility] Last Admin: 04/11/18 10:29 Dose: 75 mg Docusate Sodium (Colace -) 100 mg PO Q12H PRN PRN Reason: CONSTIPATION Last Admin: 03/29/18 23:21 Dose: 100 mg Escitalopram Oxalate (Lexapro -) 10 mg PO DAILY [facility] Last Admin: 04/11/18 10:29 Dose: 10 mg Finasteride (Proscar -) 5 mg PO DAILY [facility] Last Admin: 04/11/18 10:29 Dose: 5 mg Furosemide (Lasix Injection -) 100 mg IVPB BID@0600,1400 [facility] Last Admin: 04/11/18 06:13 Dose: 100 mg Glipizide (Glucotrol -) 2.5 mg PO DAILY@0700 [facility] Last Admin: 04/11/18 06:13 Dose: 2.5 mg Insulin Aspart (Novolog Vial Sliding Scale -) 1 vial SQ ACHS [facility]; Protocol Last Admin: 04/11/18 11:34 Dose: Not Given Metoprolol Succinate (Toprol Xl -) 25 mg PO DAILY [facility] Last Admin: 04/11/18 10:29 Dose: 25 mg Ondansetron HCl (Zofran Injection) 4 mg IVPUSH Q6H PRN PRN Reason: NAUSEA AND/OR VOMITING Rivaroxaban (Xarelto -) 15 mg PO DAILY@1800 [facility] Last Admin: 04/10/18 17:51 Dose: 15 mg Rosuvastatin Calcium (Crestor -) 10 mg PO HS [facility] Last Admin: 04/10/18 23:06 Dose: 10 mg Tamsulosin HCl (Flomax -) 0.4 mg PO BID@0830,2200 [facility] Last Admin: 04/11/18 10:29 Dose: 0.4 mg A/P Acute on Chronic Systolic Heart Failure Atrial Fibrillation CAD +Troponins likely Demand Ischemia Acute on Chronic Renal Failure HTN DM Hyperlipidemia Hematuria - continue lasix - monitor urine output, creatinine - daily weights - replete lytes - rate controlled - continue anticoagulation - O2 to keep SpO2 >90% - urology f/u
--- NOTE | 2018-04-11 14:42 | PN ---
Progress Note (short form) - Note Progress Note: Renal follow up for PACO Pt seen and examined at the bedside curtis re-inserted yesterday evening b/c of urinary retention sob improved no cp not ambulating much Vital Signs Temperature 98.4 F 04/11/18 09:00 Pulse Rate 85 04/11/18 09:00 Respiratory Rate 20 04/11/18 09:00 Blood Pressure 95/59 L 04/11/18 09:00 O2 Sat by Pulse Oximetry (%) 96 04/11/18 09:00 Intake & Output 04/08/18 04/09/18 04/10/18 04/11/18 23:59 23:59 23:59 23:59 Intake Total 50 545 170 170 Output Total 638 635 8811 1800 Balance -847 -320 -5722 -9582 Weight 82.214 kg 81.817 kg 79.923 kg NAD RRR, No M/R + rales at lung bases CBC, BMP 04/11/18 05:30 04/11/18 05:30 Current Medications Acetaminophen (Tylenol -) 650 mg PO Q6H PRN PRN Reason: PAIN LEVEL 6-10 Last Admin: 04/11/18 14:24 Dose: 650 mg Allopurinol (Zyloprim -) 100 mg PO DAILY [facility] Last Admin: 04/11/18 10:29 Dose: 100 mg Allopurinol (Zyloprim -) 100 mg PO HS PRN PRN Reason: PAIN Last Admin: 04/10/18 23:06 Dose: 100 mg Cholecalciferol (Vitamin D3 -) 2,000 unit PO DAILY [facility] Last Admin: 04/11/18 10:29 Dose: 2,000 unit Clopidogrel Bisulfate (Plavix -) 75 mg PO DAILY [facility] Last Admin: 04/11/18 10:29 Dose: 75 mg Docusate Sodium (Colace -) 100 mg PO Q12H PRN PRN Reason: CONSTIPATION Last Admin: 03/29/18 23:21 Dose: 100 mg Escitalopram Oxalate (Lexapro -) 10 mg PO DAILY [facility] Last Admin: 04/11/18 10:29 Dose: 10 mg Finasteride (Proscar -) 5 mg PO DAILY [facility] Last Admin: 04/11/18 10:29 Dose: 5 mg Furosemide (Lasix Injection -) 100 mg IVPB BID@0600,1400 [facility] Last Admin: 04/11/18 14:14 Dose: 100 mg Glipizide (Glucotrol -) 2.5 mg PO DAILY@0700 [facility] Last Admin: 04/11/18 06:13 Dose: 2.5 mg Insulin Aspart (Novolog Vial Sliding Scale -) 1 vial SQ ACHS [facility]; Protocol Last Admin: 04/11/18 11:34 Dose: Not Given Metoprolol Succinate (Toprol Xl -) 25 mg PO DAILY [facility] Last Admin: 04/11/18 10:29 Dose: 25 mg Ondansetron HCl (Zofran Injection) 4 mg IVPUSH Q6H PRN PRN Reason: NAUSEA AND/OR VOMITING Rivaroxaban (Xarelto -) 15 mg PO DAILY@1800 [facility] Last Admin: 04/10/18 17:51 Dose: 15 mg Rosuvastatin Calcium (Crestor -) 10 mg PO HS [facility] Last Admin: 04/10/18 23:06 Dose: 10 mg Tamsulosin HCl (Flomax -) 0.4 mg PO BID@0830,2200 [facility] Last Admin: 04/11/18 10:29 Dose: 0.4 mg 78 year old gentleman with Hx of CHF, Hypertension, HLD, DM who presented with SOB and admitted for CHF exacerbation with PACO. #PACO on ? 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
[2018-04-11] MEDS ORDERED: PT OWN MED DRAWER 7, Y5N ONE (16:49)
[2018-04-11] MEDS: RIVAROXABAN 15 MG TABLET PO SCH (17:30)
--- NOTE | 2018-04-11 19:56 | PN ---
Progress Note, Physician History of Present Illness: Event were noticed (Yanet was rreinserted secondary to UR) Pt w/o SOB, CP, palpitations, abd pain, N, V. - Current Medication List Current Medications: Active Medications Acetaminophen (Tylenol -) 650 mg PO Q6H PRN PRN Reason: PAIN LEVEL 6-10 Last Admin: 04/11/18 14:24 Dose: 650 mg Allopurinol (Zyloprim -) 100 mg PO DAILY [facility] Last Admin: 04/11/18 10:29 Dose: 100 mg Allopurinol (Zyloprim -) 100 mg PO HS PRN PRN Reason: PAIN Last Admin: 04/10/18 23:06 Dose: 100 mg Cholecalciferol (Vitamin D3 -) 2,000 unit PO DAILY [facility] Last Admin: 04/11/18 10:29 Dose: 2,000 unit Clopidogrel Bisulfate (Plavix -) 75 mg PO DAILY [facility] Last Admin: 04/11/18 10:29 Dose: 75 mg Docusate Sodium (Colace -) 100 mg PO Q12H PRN PRN Reason: CONSTIPATION Last Admin: 03/29/18 23:21 Dose: 100 mg Escitalopram Oxalate (Lexapro -) 10 mg PO DAILY [facility] Last Admin: 04/11/18 10:29 Dose: 10 mg Finasteride (Proscar -) 5 mg PO DAILY [facility] Last Admin: 04/11/18 10:29 Dose: 5 mg Furosemide (Lasix Injection -) 100 mg IVPB BID@0600,1400 [facility] Last Admin: 04/11/18 14:14 Dose: 100 mg Glipizide (Glucotrol -) 2.5 mg PO DAILY@0700 [facility] Last Admin: 04/11/18 06:13 Dose: 2.5 mg Insulin Aspart (Novolog Vial Sliding Scale -) 1 vial SQ ACHS [facility]; Protocol Last Admin: 04/11/18 17:29 Dose: Not Given Metoprolol Succinate (Toprol Xl -) 25 mg PO DAILY [facility] Last Admin: 04/11/18 10:29 Dose: 25 mg Ondansetron HCl (Zofran Injection) 4 mg IVPUSH Q6H PRN PRN Reason: NAUSEA AND/OR VOMITING Rivaroxaban (Xarelto -) 15 mg PO DAILY@1800 [facility] Last Admin: 04/11/18 17:30 Dose: 15 mg Rosuvastatin Calcium (Crestor -) 10 mg PO HS [facility] Last Admin: 04/10/18 23:06 Dose: 10 mg Tamsulosin HCl (Flomax -) 0.4 mg PO BID@0830,2200 [facility] Last Admin: 04/11/18 10:29 Dose: 0.4 mg - Objective Vital Signs: Vital Signs Temperature 97.6 F 04/11/18 18:00 Pulse Rate 97 H 04/11/18 18:00 Respiratory Rate 19 04/11/18 18:00 Blood Pressure 102/63 04/11/18 18:00 O2 Sat by Pulse Oximetry (%) 96 04/11/18 09:00 Constitutional: Yes: No Distress, Calm Cardiovascular: Yes: Regular Rate and Rhythm, S1, S2 Respiratory: Yes: Regular, CTA Bilaterally Gastrointestinal: Yes: Normal Bowel Sounds, Soft, Tenderness Edema: No Neurological: Yes: Alert, Oriented Labs: CBC, BMP 04/11/18 05:30 04/11/18 05:30 Problem List - Problems (1) Acute systolic CHF (congestive heart failure) Code(s): I50.21 - ACUTE SYSTOLIC (CONGESTIVE) HEART FAILURE (2) Elevated troponin I level Code(s): R74.8 - ABNORMAL LEVELS OF OTHER SERUM ENZYMES (3) Hypotension Code(s): I95.9 - HYPOTENSION, UNSPECIFIED (4) PACO (acute kidney injury) Code(s): N17.9 - ACUTE KIDNEY FAILURE, UNSPECIFIED (5) CRF (chronic renal failure) Code(s): N18.9 - CHRONIC KIDNEY DISEASE, UNSPECIFIED (6) Hypercholesteremia Code(s): E78.00 - PURE HYPERCHOLESTEROLEMIA, UNSPECIFIED (7) Hypertension Code(s): I10 - ESSENTIAL (PRIMARY) HYPERTENSION (8) Pleural effusion Code(s): J90 - PLEURAL EFFUSION, NOT ELSEWHERE CLASSIFIED (9) CAD (coronary artery disease) Code(s): I25.10 - ATHSCL HEART DISEASE OF [place] CORONARY ARTERY W/O ANG PCTRS (10) AICD (automatic cardioverter/defibrillator) present Code(s): Z95.810 - PRESENCE OF AUTOMATIC (IMPLANTABLE) CARDIAC DEFIBRILLATOR (11) PAF (paroxysmal atrial fibrillation) Code(s): I48.0 - PAROXYSMAL ATRIAL FIBRILLATION (12) Urinary retention Code(s): R33.9 - RETENTION OF URINE, UNSPECIFIED (13) Hematuria Code(s): R31.9 - HEMATURIA, UNSPECIFIED (14) Postoperative urinary retention Assessment/Plan: recall Code(s): N99.89 - OTH POSTPROCEDURAL COMPLICATIONS AND DISORDERS OF SYS; R33.8 - OTHER RETENTION OF URINE Assessment/Plan Pt with post-op recurrent UR; Holt wa sreinserted; to recall . Pt on Metolazone, in addition to IV Lasix. To f/u AM labs s/p TUVP (03/27/2018); Holt was removed, urinating well, then developed urinary retention; Holt cath was reinserted yesterday. Pt is on Lasix IVP BID secondary to dyspnea/ CHF exacerbation; breathing is improving with IV Lasix. Pt on Xarelto and Plavix. Pt was admitted to ICU (03/10/2018), transferred to Telemetry. Serial CE -stable; CE were found to be elevated in the settings of PACO and CHF ( probable demand ischemia) ICU/CCM, Cardio, Renal, consults are appreciated. Home med on hold at admission: Losartan, Spironolactone, Torsemide, Metformin. Pt on Glipizide. BGM with Novolog coverage. Pt is tolerating Metoprolol; pt's blood presure is improved. Pt would benefit of ACEI or ARB; can be restarted as tolerated. Pt's case was d/w pt's nurse.
[2018-04-11] MEDS: ROSUVASTATIN CA 10 MG TABLET (FP) PO SCH (21:17)
[2018-04-11] MEDS: ALLOPURINOL 100 MG TABLET (FP) PO PRN (21:17)
[2018-04-11] MEDS: ZOLPIDEM TARTRATE 5 MG TABLET PO PRN (22:28)
[2018-04-12 06:51] LABS: MCH 26.4 pg (25.7-33.7); MCHC 31.5 g/dl (32.0-35.9); MEAN CELL VOLUME 83.7 fl (80-96); MEAN PLT VOLUME 7.6 fl (7.5-11.1); PLATELET COUNT 239 K/MM3 (134-434); RBC 4.54 M/mm3 (4.00-5.60); RDW 17.4 % (11.9-15.9); WHITE BLOOD COUNT 10.1 K/mm3 (4.0-10.0)
[2018-04-12] MEDS: glipiZIDE 5 MG TABLET (FP) PO SCH (06:58)
[2018-04-12] MEDS: INSULIN SLIDING SCALE (NOVOLOG) 1 VIAL SQ SCH ×4 (07:06→21:17)
[2018-04-12] MEDS: FUROSEMIDE 100 MG/10 ML INJECTABLE VIAL IVPB SCH ×2 (07:36→13:17)
[2018-04-12 07:40] LABS: ANION GAP 8 MMOL/L (8-16); BLOOD UREA NITROGEN 53 mg/dL (7-18); CALCIUM 9.2 mg/dL (8.5-10.1); CHLORIDE 97 mmol/L (98-107); CO2 32 mmol/L (21-32); CREATININE 1.2 mg/dL (0.55-1.3); GLUCOSE,RANDOM 133 mg/dL (74-106); MAGNESIUM 2.3 mg/dL (1.8-2.4); POTASSIUM 3.3 mmol/L (3.5-5.1); SODIUM 136 mmol/L (136-145)
[2018-04-12] MEDS ORDERED: POTASSIUM CHLORIDE TABS 20 MEQ TABLET.ER (FP) PO ONE ×3 (09:09→13:00)
[2018-04-12] MEDS: ALLOPURINOL 100 MG TABLET (FP) PO SCH (09:54)
[2018-04-12] MEDS: metoPROLOL SUCCINATE 25 MG TAB.SR.24H (FP) PO SCH (09:54)
[2018-04-12] MEDS: TAMSULOSIN HCL 0.4 MG CAP PO SCH ×2 (09:54→21:16)
[2018-04-12] MEDS: FINASTERIDE 5 MG TABLET (FP) PO SCH (09:54)
[2018-04-12] MEDS: ESCITALOPRAM OXALATE 10 MG TABLET (FP) PO SCH (09:55)
[2018-04-12] MEDS: CHOLECALCIFEROL (VITAMIN D3) 1,000 UNIT TABLET (FP) PO SCH (09:55)
[2018-04-12] MEDS: CLOPIDOGREL BISULFATE 75 MG TABLET (FP) PO SCH (09:55)
--- NOTE | 2018-04-12 10:45 | PN ---
Progress Note (short form) - Note Progress Note: cc: sob s: no chest pain, palps, dizzy, lightheadedness. a little kelley still but less ex cigs Current Medications Generic Name Dose Route Start Last Admin Trade Name Freq PRN Reason Stop Dose Admin Acetaminophen 650 mg 04/06/18 09:04 04/11/18 21:17 Tylenol - PO 650 mg Q6H PRN Administration PAIN LEVEL 6-10 Allopurinol 100 mg 03/28/18 10:00 04/12/18 09:54 Zyloprim - PO 100 mg DAILY [facility] Administration Allopurinol 100 mg 03/28/18 17:57 04/11/18 21:17 Zyloprim - PO 100 mg HS PRN Administration PAIN Cholecalciferol 2,000 unit 03/28/18 10:00 04/12/18 09:55 Vitamin D3 - PO 2,000 unit DAILY [facility] Administration Clopidogrel Bisulfate 75 mg 03/30/18 10:00 04/12/18 09:55 Plavix - PO 75 mg DAILY [facility] Administration Docusate Sodium 100 mg 03/27/18 16:05 03/29/18 23:21 Colace - PO 100 mg Q12H PRN Administration CONSTIPATION Escitalopram Oxalate 10 mg 03/28/18 10:00 04/12/18 09:55 Lexapro - PO 10 mg DAILY [facility] Administration Finasteride 5 mg 03/28/18 10:00 04/12/18 09:54 Proscar - PO 5 mg DAILY [facility] Administration Furosemide 100 mg 04/01/18 06:00 04/12/18 07:36 Lasix Injection - IVPB 100 mg BID@0600,1400 [facility] Administration Glipizide 2.5 mg 03/28/18 07:00 04/12/18 06:58 Glucotrol - PO 2.5 mg DAILY@0700 [facility] Administration Insulin Aspart 1 vial 03/27/18 16:30 04/12/18 07:06 Novolog Vial Sliding Scale - SQ Not Given [facility] Protocol Metolazone 7.5 mg 04/12/18 13:00 Zaroxolyn - PO 04/12/18 13:01 ONCE ONE Metoprolol Succinate 25 mg 03/31/18 10:00 04/12/18 09:54 Toprol Xl - PO 25 mg DAILY [facility] Administration Ondansetron HCl 4 mg 03/27/18 15:04 Zofran Injection IVPUSH Q6H PRN NAUSEA AND/OR VOMITING Potassium Chloride 40 meq 04/12/18 13:00 K-Dur - PO 04/12/18 13:01 ONCE ONE Rivaroxaban 15 mg 03/29/18 18:00 04/11/18 17:30 Xarelto - PO 15 mg DAILY@1800 [facility] Administration Rosuvastatin Calcium 10 mg 03/27/18 22:00 04/11/18 21:17 Crestor - PO 10 mg HS [facility] Administration Tamsulosin HCl 0.4 mg 03/27/18 22:00 04/12/18 09:54 Flomax - PO 0.4 mg BID@0830,2200 [facility] Administration Zolpidem Tartrate 5 mg 04/11/18 21:33 04/11/18 22:28 Ambien - PO 5 mg HS PRN Administration INSOMNIA - Objective Vital Signs Period Temp Pulse Resp BP Sys/Eisenberg Pulse Ox Last 24 Hr 97.5 F-98.0 F 82-101 19-20 95-110/50-66 96 Constitutional: Yes: No Distress, Calm Eyes: No: Sclera Icterus HENT: No: Nasal Congestion Cardiovascular: Yes: Regular Rate and Rhythm, JVD, S1, S2, Other (PMI non diplaced). No: Gallop, Murmur Respiratory: Yes: CTA Bilaterally. No: Accessory Muscle Use, Wheezes Gastrointestinal: Yes: Normal Bowel Sounds, Soft. No: Tenderness Extremities: No: Cyanosis Edema: No Integumentary: No: Jaundice diaphoresis Neurological: Yes: Alert, Oriented (x3) Psychiatric: No: Agitated Assessment/Plan echo with definity 07/2017 dilated LV, EF 20-25%, with apical AK, HK of inf and lat [place], grade II diastolic dysfunction, cath 04/2017 MLM 80-90% with severe calc, pLAD PROCEDURE RN fills with collat from LCX and RCA. EF 15% dyskinetic apex, s/p LM PCI tele: sinus tachycardia, PVCs acute on chronic systolic HF s/p ICD - admitting symptoms concerning for CHF exacerbation, BNP 8000 - diuresed with lasix 80 iv bid earlier this admit, no standing wts done then. - changed to torsemide 80 mg BID (home dose), then eventually changed to torsemide 80 qd which he is currently on - med dosing has been limited by low bp--spirono and losartan from home were held here. metoprolol dose reduced. - 03/30: resumed lasix 80 iv bid. - 03/31: I/O (had curtis in) = 130/2150, wt up 181 to 183 lbs. renal fxn stable. received metolazone, lasix 80 mg IV TID - 04/01: UOP 2L, wt down 183 to 180. renal fxn stable. lasix 100 bid with metolazone given, metoprolol changed to succinate - 04/02: symptoms improving, weight down 180->179 lbs, lasix 100 IV BID continued - 04/03: lasix held this AM due to hypotension, continue lasix 100 mg IV BID. BUN /Cr improving - 04/04-: cr stable, sob better, wt down. cont iv lasix for now. - 04/06: curtis cath replaced by urology, diuresed well - 04/07 weight 177->179 lbs, Cr stable, short of breath with walking. continue IV lasix 100 mg BID - 04/08 weight 179->181 lbs, Cr rising, 1.5 today. continue lasix 100 mg IV BID , defer additional metolazone - 04/09 Cr improving however UOP down. curtis removed. CXR shows increased congestion, shira pleural effusions. metolazone 5 mg, lasix 100 mg IV BID. bladder scan showed ~150 cc - 04/10 UOP improved, Cr stable. symptoms better, metolazone 5 mg again today, continue lasix 100 mg BID -04/11-: had urinary retention, curtis back in now with better uop and wt coming down. cont lasix 100 bid iv, metolazone 7.5 mg this afternoon. daily wts , chem7 - resume ARB +/- spironolactone later, once pt well diuresed and can reassess bp - continue metoprolol succinate 25 mg daily VTach: - brief NSVT on tele. - cont metoprolol (dose limited by low bp) - fluid status optimization as doing - K/Mag > 4/2 CAD s/p LM stent 04/2017 - cont statin, metoprolol, plavix pos troponin -borderline trop elevation with flat trend and nl ck, not c/w acs afib - restarted on metoprolol 25 mg BID with improved rates, up titrate as tolerated however has had low BP - cont Xarelto PACO on CKD - baseline creatin in 1.4 from office 12/31 - initial PACO here ? cardiorenal, ? obstructive - curtis placed, renal ultrasound, no obstruction - creatinine stable at baseline - renal following
--- NOTE | 2018-04-12 12:06 | PN ---
Progress Note, Physician History of Present Illness: Pt w/o SOB, CP, palpitations, abd pain, N, V. Pt asking to have the Holt remove. - Current Medication List Current Medications: Active Medications Acetaminophen (Tylenol -) 650 mg PO Q6H PRN PRN Reason: PAIN LEVEL 6-10 Last Admin: 04/11/18 21:17 Dose: 650 mg Allopurinol (Zyloprim -) 100 mg PO DAILY [facility] Last Admin: 04/12/18 09:54 Dose: 100 mg Allopurinol (Zyloprim -) 100 mg PO HS PRN PRN Reason: PAIN Last Admin: 04/11/18 21:17 Dose: 100 mg Cholecalciferol (Vitamin D3 -) 2,000 unit PO DAILY [facility] Last Admin: 04/12/18 09:55 Dose: 2,000 unit Clopidogrel Bisulfate (Plavix -) 75 mg PO DAILY [facility] Last Admin: 04/12/18 09:55 Dose: 75 mg Docusate Sodium (Colace -) 100 mg PO Q12H PRN PRN Reason: CONSTIPATION Last Admin: 03/29/18 23:21 Dose: 100 mg Escitalopram Oxalate (Lexapro -) 10 mg PO DAILY [facility] Last Admin: 04/12/18 09:55 Dose: 10 mg Finasteride (Proscar -) 5 mg PO DAILY [facility] Last Admin: 04/12/18 09:54 Dose: 5 mg Furosemide (Lasix Injection -) 100 mg IVPB BID@0600,1400 [facility] Last Admin: 04/12/18 07:36 Dose: 100 mg Glipizide (Glucotrol -) 2.5 mg PO DAILY@0700 [facility] Last Admin: 04/12/18 06:58 Dose: 2.5 mg Insulin Aspart (Novolog Vial Sliding Scale -) 1 vial SQ ACHS [facility]; Protocol Last Admin: 04/12/18 11:34 Dose: Not Given Metolazone (Zaroxolyn -) 7.5 mg PO ONCE ONE Stop: 04/12/18 13:01 Metoprolol Succinate (Toprol Xl -) 25 mg PO DAILY [facility] Last Admin: 04/12/18 09:54 Dose: 25 mg Ondansetron HCl (Zofran Injection) 4 mg IVPUSH Q6H PRN PRN Reason: NAUSEA AND/OR VOMITING Potassium Chloride (K-Dur -) 40 meq PO ONCE ONE Stop: 04/12/18 13:01 Rivaroxaban (Xarelto -) 15 mg PO DAILY@1800 [facility] Last Admin: 04/11/18 17:30 Dose: 15 mg Rosuvastatin Calcium (Crestor -) 10 mg PO HS [facility] Last Admin: 04/11/18 21:17 Dose: 10 mg Tamsulosin HCl (Flomax -) 0.4 mg PO BID@0830,2200 [facility] Last Admin: 04/12/18 09:54 Dose: 0.4 mg Zolpidem Tartrate (Ambien -) 5 mg PO HS PRN PRN Reason: INSOMNIA Last Admin: 04/11/18 22:28 Dose: 5 mg - Objective Vital Signs: Vital Signs Temperature 97.5 F L 04/12/18 05:35 Pulse Rate 101 H 04/12/18 07:01 Respiratory Rate 20 04/12/18 05:35 Blood Pressure 110/50 L 04/12/18 07:01 O2 Sat by Pulse Oximetry (%) 96 04/11/18 21:00 Constitutional: Yes: No Distress, Calm Cardiovascular: Yes: Pulse Irregular, S1, S2 Respiratory: Yes: Regular, CTA Bilaterally (except crakles sat right base) Gastrointestinal: Yes: Normal Bowel Sounds, Soft. No: Tenderness Edema: No Neurological: Yes: Alert, Oriented Labs: CBC, BMP 04/12/18 06:00 04/12/18 06:00 Problem List - Problems (1) Acute systolic CHF (congestive heart failure) Code(s): I50.21 - ACUTE SYSTOLIC (CONGESTIVE) HEART FAILURE (2) Elevated troponin I level Code(s): R74.8 - ABNORMAL LEVELS OF OTHER SERUM ENZYMES (3) Hypotension Code(s): I95.9 - HYPOTENSION, UNSPECIFIED (4) PACO (acute kidney injury) Code(s): N17.9 - ACUTE KIDNEY FAILURE, UNSPECIFIED (5) CRF (chronic renal failure) Code(s): N18.9 - CHRONIC KIDNEY DISEASE, UNSPECIFIED (6) Hypercholesteremia Code(s): E78.00 - PURE HYPERCHOLESTEROLEMIA, UNSPECIFIED (7) Hypertension Code(s): I10 - ESSENTIAL (PRIMARY) HYPERTENSION (8) Pleural effusion Code(s): J90 - PLEURAL EFFUSION, NOT ELSEWHERE CLASSIFIED (9) CAD (coronary artery disease) Code(s): I25.10 - ATHSCL HEART DISEASE OF [place] CORONARY ARTERY W/O ANG PCTRS (10) AICD (automatic cardioverter/defibrillator) present Code(s): Z95.810 - PRESENCE OF AUTOMATIC (IMPLANTABLE) CARDIAC DEFIBRILLATOR (11) PAF (paroxysmal atrial fibrillation) Code(s): I48.0 - PAROXYSMAL ATRIAL FIBRILLATION (12) Urinary retention Code(s): R33.9 - RETENTION OF URINE, UNSPECIFIED (13) Hematuria Code(s): R31.9 - HEMATURIA, UNSPECIFIED (14) Postoperative urinary retention Code(s): N99.89 - OTH POSTPROCEDURAL COMPLICATIONS AND DISORDERS OF SYS; R33.8 - OTHER RETENTION OF URINE Assessment/Plan Pt with post-op recurrent UR; Holt was reinserted; to f/u with regarding Holt and treatment. Pt on Metolazone, in addition to IV Lasix. To f/u AM labs/ Pt's weight is trending down. s/p TUVP (03/27/2018); Holt was removed, urinated well, then developed urinary retention; Holt cath was reinserted, then remover; pt redeveloped UR and Holt was reinserted (04/10/2018). Pt on Xarelto and Plavix. Pt was admitted to ICU (03/10/2018), transferred to Telemetry. Serial CE -stable; CE were found to be elevated in the settings of PACO and CHF ( probable demand ischemia) ICU/CCM, Cardio, Renal, consults are appreciated. Home med on hold at admission: Losartan, Spironolactone, Torsemide, Metformin. Pt on Glipizide. BGM with Novolog coverage. Pt is tolerating Metoprolol; pt's blood presure is improved. Pt would benefit of ACEI or ARB; can be restarted as tolerated. Pt's case was d/w pt's nurse.
--- NOTE | 2018-04-12 12:39 | PN ---
Progress Note, Physician History of Present Illness: pulmonary alert,feeling better,dyspnea improving - Current Medication List Current Medications: Active Medications Acetaminophen (Tylenol -) 650 mg PO Q6H PRN PRN Reason: PAIN LEVEL 6-10 Last Admin: 04/11/18 21:17 Dose: 650 mg Allopurinol (Zyloprim -) 100 mg PO DAILY [facility] Last Admin: 04/12/18 09:54 Dose: 100 mg Allopurinol (Zyloprim -) 100 mg PO HS PRN PRN Reason: PAIN Last Admin: 04/11/18 21:17 Dose: 100 mg Cholecalciferol (Vitamin D3 -) 2,000 unit PO DAILY [facility] Last Admin: 04/12/18 09:55 Dose: 2,000 unit Clopidogrel Bisulfate (Plavix -) 75 mg PO DAILY [facility] Last Admin: 04/12/18 09:55 Dose: 75 mg Docusate Sodium (Colace -) 100 mg PO Q12H PRN PRN Reason: CONSTIPATION Last Admin: 03/29/18 23:21 Dose: 100 mg Escitalopram Oxalate (Lexapro -) 10 mg PO DAILY [facility] Last Admin: 04/12/18 09:55 Dose: 10 mg Finasteride (Proscar -) 5 mg PO DAILY [facility] Last Admin: 04/12/18 09:54 Dose: 5 mg Furosemide (Lasix Injection -) 100 mg IVPB BID@0600,1400 [facility] Last Admin: 04/12/18 07:36 Dose: 100 mg Glipizide (Glucotrol -) 2.5 mg PO DAILY@0700 [facility] Last Admin: 04/12/18 06:58 Dose: 2.5 mg Insulin Aspart (Novolog Vial Sliding Scale -) 1 vial SQ ACHS [facility]; Protocol Last Admin: 04/12/18 11:34 Dose: Not Given Metolazone (Zaroxolyn -) 7.5 mg PO ONCE ONE Stop: 04/12/18 13:01 Last Admin: 04/12/18 12:30 Dose: 7.5 mg Metoprolol Succinate (Toprol Xl -) 25 mg PO DAILY [facility] Last Admin: 04/12/18 09:54 Dose: 25 mg Ondansetron HCl (Zofran Injection) 4 mg IVPUSH Q6H PRN PRN Reason: NAUSEA AND/OR VOMITING Potassium Chloride (K-Dur -) 40 meq PO ONCE ONE Stop: 04/12/18 13:01 Last Admin: 04/12/18 12:30 Dose: 40 meq Rivaroxaban (Xarelto -) 15 mg PO DAILY@1800 [facility] Last Admin: 04/11/18 17:30 Dose: 15 mg Rosuvastatin Calcium (Crestor -) 10 mg PO HS [facility] Last Admin: 04/11/18 21:17 Dose: 10 mg Tamsulosin HCl (Flomax -) 0.4 mg PO BID@0830,2200 [facility] Last Admin: 04/12/18 09:54 Dose: 0.4 mg Zolpidem Tartrate (Ambien -) 5 mg PO HS PRN PRN Reason: INSOMNIA Last Admin: 04/11/18 22:28 Dose: 5 mg - Objective Vital Signs: Vital Signs Temperature 97.5 F L 04/12/18 05:35 Pulse Rate 101 H 04/12/18 07:01 Respiratory Rate 20 04/12/18 05:35 Blood Pressure 110/50 L 04/12/18 07:01 O2 Sat by Pulse Oximetry (%) 96 04/11/18 21:00 Constitutional: Yes: Well Nourished, Calm Eyes: Yes: WNL HENT: Yes: WNL Neck: Yes: WNL Cardiovascular: Yes: Pulse Irregular, S1, S2 Respiratory: Yes: Rales (bibasailar crackles) Gastrointestinal: Yes: Normal Bowel Sounds, Soft Extremities: Yes: WNL Edema: No Labs: CBC, BMP 04/12/18 06:00 04/12/18 06:00 Problem List - Problems (1) AICD (automatic cardioverter/defibrillator) present Code(s): Z95.810 - PRESENCE OF AUTOMATIC (IMPLANTABLE) CARDIAC DEFIBRILLATOR (2) PACO (acute kidney injury) Code(s): N17.9 - ACUTE KIDNEY FAILURE, UNSPECIFIED (3) Acute systolic CHF (congestive heart failure) Code(s): I50.21 - ACUTE SYSTOLIC (CONGESTIVE) HEART FAILURE (4) CAD (coronary artery disease) Code(s): I25.10 - ATHSCL HEART DISEASE OF [place] CORONARY ARTERY W/O ANG PCTRS (5) Diabetes mellitus Code(s): E11.9 - TYPE 2 DIABETES MELLITUS WITHOUT COMPLICATIONS (6) Hypercholesteremia Code(s): E78.00 - PURE HYPERCHOLESTEROLEMIA, UNSPECIFIED (7) Elevated troponin I level Code(s): R74.8 - ABNORMAL LEVELS OF OTHER SERUM ENZYMES (8) Hematuria Code(s): R31.9 - HEMATURIA, UNSPECIFIED (9) Hypertension Code(s): I10 - ESSENTIAL (PRIMARY) HYPERTENSION Assessment/Plan IMP: Acute on Chronic Systolic Heart Failure improving Atrial Fibrillation CAD +Troponins likely Demand Ischemia Acute on Chronic Renal Failure HTN DM Hyperlipidemia Hematuria - iv lasix - zaroxlyn - monitor urine output, creatinine - daily weights - Incentive spirometry - rate controlled with Beta Mili - O2 to maintain saturation - chest x-ray today - nippv if pt developes increased respiratory distress - strict I+Os DR CÁRDENAS
[2018-04-12] MEDS ORDERED: METOLAZONE 2.5 MG TABLET (FP) PO ONE (13:00)
--- NOTE | 2018-04-12 14:54 | PN ---
Progress Note (short form) - Note Progress Note: Renal follow up for PACO Pt seen and examined at the bedside feels better making urine via curtis no sob, cp, abd pain, N/V/D able to ambulate with less sob Vital Signs Temperature 97.5 F L 04/12/18 13:51 Pulse Rate 98 H 04/12/18 13:51 Respiratory Rate 20 04/12/18 13:51 Blood Pressure 111/74 04/12/18 13:51 O2 Sat by Pulse Oximetry (%) 96 04/11/18 21:00 Intake & Output 04/09/18 04/10/18 04/11/18 04/12/18 23:59 23:59 23:59 23:59 Intake Total 545 170 170 Output Total 750 1250 2900 500 Balance -632 -8343 -2730 -500 Weight 81.817 kg 79.923 kg 79.038 kg NAD RRR, No M/R Dec BS at lung bases CBC, BMP 04/12/18 06:00 04/12/18 06:00 Current Medications Acetaminophen (Tylenol -) 650 mg PO Q6H PRN PRN Reason: PAIN LEVEL 6-10 Last Admin: 04/11/18 21:17 Dose: 650 mg Allopurinol (Zyloprim -) 100 mg PO DAILY [facility] Last Admin: 04/12/18 09:54 Dose: 100 mg Allopurinol (Zyloprim -) 100 mg PO HS PRN PRN Reason: PAIN Last Admin: 04/11/18 21:17 Dose: 100 mg Cholecalciferol (Vitamin D3 -) 2,000 unit PO DAILY [facility] Last Admin: 04/12/18 09:55 Dose: 2,000 unit Clopidogrel Bisulfate (Plavix -) 75 mg PO DAILY [facility] Last Admin: 04/12/18 09:55 Dose: 75 mg Docusate Sodium (Colace -) 100 mg PO Q12H PRN PRN Reason: CONSTIPATION Last Admin: 03/29/18 23:21 Dose: 100 mg Escitalopram Oxalate (Lexapro -) 10 mg PO DAILY [facility] Last Admin: 04/12/18 09:55 Dose: 10 mg Finasteride (Proscar -) 5 mg PO DAILY [facility] Last Admin: 04/12/18 09:54 Dose: 5 mg Furosemide (Lasix Injection -) 100 mg IVPB BID@0600,1400 [facility] Last Admin: 04/12/18 13:17 Dose: 100 mg Glipizide (Glucotrol -) 2.5 mg PO DAILY@0700 [facility] Last Admin: 04/12/18 06:58 Dose: 2.5 mg Insulin Aspart (Novolog Vial Sliding Scale -) 1 vial SQ ACHS [facility]; Protocol Last Admin: 04/12/18 11:34 Dose: Not Given Metoprolol Succinate (Toprol Xl -) 25 mg PO DAILY [facility] Last Admin: 04/12/18 09:54 Dose: 25 mg Ondansetron HCl (Zofran Injection) 4 mg IVPUSH Q6H PRN PRN Reason: NAUSEA AND/OR VOMITING Rivaroxaban (Xarelto -) 15 mg PO DAILY@1800 [facility] Last Admin: 04/11/18 17:30 Dose: 15 mg Rosuvastatin Calcium (Crestor -) 10 mg PO HS [facility] Last Admin: 04/11/18 21:17 Dose: 10 mg Tamsulosin HCl (Flomax -) 0.4 mg PO BID@0830,2200 [facility] Last Admin: 04/12/18 09:54 Dose: 0.4 mg Zolpidem Tartrate (Ambien -) 5 mg PO HS PRN PRN Reason: INSOMNIA Last Admin: 04/11/18 22:28 Dose: 5 mg 78 year old gentleman with Hx of CHF, Hypertension, HLD, DM who presented with SOB and admitted for CHF exacerbation with PACO. #PACO on ? 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
[2018-04-12] MEDS ORDERED: INSULIN (NOVOLOG) ASPART 100 UNITS/ML 10ML VIAL ONE (17:07)
[2018-04-12] MEDS ORDERED: PT OWN MED DRAWER 7, Y5N ONE (17:14)
[2018-04-12] MEDS: RIVAROXABAN 15 MG TABLET PO SCH (17:24)
[2018-04-12] MEDS: ALLOPURINOL 100 MG TABLET (FP) PO PRN (21:15)
[2018-04-12] MEDS: ZOLPIDEM TARTRATE 5 MG TABLET PO PRN (21:16)
[2018-04-12] MEDS: ROSUVASTATIN CA 10 MG TABLET (FP) PO SCH (21:16)
[2018-04-13] MEDS: glipiZIDE 5 MG TABLET (FP) PO SCH (06:13)
[2018-04-13] MEDS: FUROSEMIDE 100 MG/10 ML INJECTABLE VIAL IVPB SCH ×2 (06:13→13:23)
[2018-04-13] MEDS: INSULIN SLIDING SCALE (NOVOLOG) 1 VIAL SQ SCH ×4 (06:14→22:12)
[2018-04-13 07:14] LABS: HEMATOCRIT 37.9 % (35.4-49); MCH 26.4 pg (25.7-33.7); MCHC 31.6 g/dl (32.0-35.9); MEAN CELL VOLUME 83.5 fl (80-96); MEAN PLT VOLUME 7.4 fl (7.5-11.1); PLATELET COUNT 244 K/MM3 (134-434); RBC 4.53 M/mm3 (4.00-5.60); RDW 16.8 % (11.9-15.9); WHITE BLOOD COUNT 9.6 K/mm3 (4.0-10.0)
[2018-04-13 07:44] LABS: ANION GAP 10 MMOL/L (8-16); BLOOD UREA NITROGEN 48 mg/dL (7-18); CALCIUM 9.6 mg/dL (8.5-10.1); CHLORIDE 97 mmol/L (98-107); CO2 32 mmol/L (21-32); CREATININE 1.2 mg/dL (0.55-1.3); GLUCOSE,RANDOM 127 mg/dL (74-106); POTASSIUM 3.8 mmol/L (3.5-5.1); SODIUM 139 mmol/L (136-145)
--- NOTE | 2018-04-13 08:41 | PN ---
Progress Note, Physician Chief Complaint: urinary retention History of Present Illness: miserable about frequent awakening overnight, no sleep. walking in [place] with walker at times, and to bathroom--denies sob. no orthopnea. no leg swelling. no cp, palipitations ex cigs - Current Medication List Current Medications: Active Medications Acetaminophen (Tylenol -) 650 mg PO Q6H PRN PRN Reason: PAIN LEVEL 6-10 Last Admin: 04/11/18 21:17 Dose: 650 mg Allopurinol (Zyloprim -) 100 mg PO DAILY [facility] Last Admin: 04/12/18 09:54 Dose: 100 mg Allopurinol (Zyloprim -) 100 mg PO HS PRN PRN Reason: PAIN Last Admin: 04/12/18 21:15 Dose: 100 mg Cholecalciferol (Vitamin D3 -) 2,000 unit PO DAILY [facility] Last Admin: 04/12/18 09:55 Dose: 2,000 unit Clopidogrel Bisulfate (Plavix -) 75 mg PO DAILY [facility] Last Admin: 04/12/18 09:55 Dose: 75 mg Docusate Sodium (Colace -) 100 mg PO Q12H PRN PRN Reason: CONSTIPATION Last Admin: 03/29/18 23:21 Dose: 100 mg Escitalopram Oxalate (Lexapro -) 10 mg PO DAILY [facility] Last Admin: 04/12/18 09:55 Dose: 10 mg Finasteride (Proscar -) 5 mg PO DAILY [facility] Last Admin: 04/12/18 09:54 Dose: 5 mg Furosemide (Lasix Injection -) 100 mg IVPB BID@0600,1400 [facility] Last Admin: 04/13/18 06:13 Dose: 100 mg Glipizide (Glucotrol -) 2.5 mg PO DAILY@0700 [facility] Last Admin: 04/13/18 06:13 Dose: 2.5 mg Insulin Aspart (Novolog Vial Sliding Scale -) 1 vial SQ ACHS [facility]; Protocol Last Admin: 04/13/18 06:14 Dose: Not Given Metoprolol Succinate (Toprol Xl -) 25 mg PO DAILY [facility] Last Admin: 04/12/18 09:54 Dose: 25 mg Ondansetron HCl (Zofran Injection) 4 mg IVPUSH Q6H PRN PRN Reason: NAUSEA AND/OR VOMITING Rivaroxaban (Xarelto -) 15 mg PO DAILY@1800 [facility] Last Admin: 04/12/18 17:24 Dose: 15 mg Rosuvastatin Calcium (Crestor -) 10 mg PO HS [facility] Last Admin: 04/12/18 21:16 Dose: 10 mg Tamsulosin HCl (Flomax -) 0.4 mg PO BID@0830,2200 [facility] Last Admin: 04/12/18 21:16 Dose: 0.4 mg Zolpidem Tartrate (Ambien -) 5 mg PO HS PRN PRN Reason: INSOMNIA Last Admin: 04/12/18 21:16 Dose: 5 mg - Objective Vital Signs: Vital Signs Temperature 98.3 F 04/13/18 05:55 Pulse Rate 89 04/13/18 05:55 Respiratory Rate 18 04/13/18 05:55 Blood Pressure 97/58 L 04/13/18 05:55 O2 Sat by Pulse Oximetry (%) 94 L 04/12/18 21:00 Constitutional: Yes: No Distress, Calm Eyes: No: Sclera Icterus HENT: No: Nasal Congestion Cardiovascular: Yes: Regular Rate and Rhythm, JVD (10 cm), S1, S2, Other (PMI non diplaced). No: Gallop, Murmur Respiratory: Yes: CTA Bilaterally. No: Accessory Muscle Use, Rales, Wheezes Gastrointestinal: Yes: Normal Bowel Sounds, Soft. No: Tenderness Musculoskeletal: Yes: Other (No kyphosis) Extremities: No: Cold Edema: No Integumentary: No: Jaundice Neurological: Yes: Alert, Oriented (x3) Psychiatric: No: Agitated Labs: CBC, BMP 04/13/18 06:00 04/13/18 06:00 Assessment/Plan echo with definity 07/2017 dilated LV, EF 20-25%, with apical AK, HK of inf and lat [place], grade II diastolic dysfunction, cath 04/2017 MLM 80-90% with severe calc, pLAD [employer] fills with collat from LCX and RCA. EF 15% dyskinetic apex, s/p LM PCI tele: sinus, NSVT runs longest 9 beats (x2) acute on chronic systolic HF s/p ICD - admitting symptoms concerning for CHF exacerbation, BNP 8000 - diuresed with lasix 80 iv bid earlier this admit, no standing wts done then. - changed to torsemide 80 mg BID (home dose), then eventually changed to torsemide 80 qd which he is currently on - med dosing has been limited by low bp--spirono and losartan from home were held here. metoprolol dose reduced. - 03/30: resumed lasix 80 iv bid. metolazone given in subsequent days on prn basis (5-7.5 mg). diuresed well and sob improved significantly. - 04/06: curtis cath replaced by urology-->creat improved subsequent - 04/09: curtis removed. CXR with increased congestion, shira pleural effusions. metolazone given -04/11-: had urinary retention, curtis re-inserted. -04/13: wt has been progressively declining, today 173 lbs (peak wt here 183). renal fxn stable. CXR yesterday with ongoing vascular engorgement, pulm edema, effusions but lower lobe edema improved vs 04/09. remains with JVD (improved vs earlier), no more sob sx's. -pt reports prior stable home wt was 185--suspect he was volume overloaded chronically at that wt but tolerating this without sx's. -repeat lasix 100 iv bid with metolazone 7.5 today. -reassess wt, labs in am. will plan to change to torsemide 100 po bid (+/- metolazone) tomorrow, and pt will likely be ready for discharge from CV standpoint on sunday. -CHF will likely be difficult to optimize until urinary obstruction issues are fully treated--definitive plan per . - resume ARB +/- spironolactone later, once pt well diuresed and can reassess bp - continue metoprolol succinate 25 mg daily VTach: - brief NSVT on tele. - cont metoprolol (dose limited by low bp) - fluid status optimization as doing - K/Mag > 4/2 CAD s/p LM stent 04/2017 - cont statin, metoprolol, plavix pos troponin -borderline trop elevation with flat trend and nl ck, not c/w acs afib - restarted on metoprolol 25 mg BID with improved rates, up titrate as tolerated however has had low BP - cont Xarelto PACO on CKD, urinary obstruction: - s/p TUVP here, continues to have failure to void on tamsulosin, now requiring curtis again--plan per is to go home with curtis and f/u with them as outpt - creat has normalized, remains stable - hematuria persists in curtis bag
[2018-04-13] MEDS: CHOLECALCIFEROL (VITAMIN D3) 1,000 UNIT TABLET (FP) PO SCH (09:42)
[2018-04-13] MEDS: TAMSULOSIN HCL 0.4 MG CAP PO SCH ×2 (09:43→22:11)
[2018-04-13] MEDS: CLOPIDOGREL BISULFATE 75 MG TABLET (FP) PO SCH (09:43)
[2018-04-13] MEDS: ESCITALOPRAM OXALATE 10 MG TABLET (FP) PO SCH (09:43)
[2018-04-13] MEDS: FINASTERIDE 5 MG TABLET (FP) PO SCH (09:43)
[2018-04-13] MEDS: metoPROLOL SUCCINATE 25 MG TAB.SR.24H (FP) PO SCH (09:43)
[2018-04-13] MEDS: ALLOPURINOL 100 MG TABLET (FP) PO SCH (09:43)
[2018-04-13] MEDS: POTASSIUM CHLORIDE ORAL LIQUID 20 MEQ/15 ML PO SCH (11:00)
[2018-04-13] MEDS ORDERED: METOLAZONE 2.5 MG TABLET (FP) PO ONE (11:15)
--- NOTE | 2018-04-13 12:06 | PN ---
Progress Note (short form) - Note Progress Note: PULMONARY Breathing is better today. Less cough. Vital Signs Period Temp Pulse Resp BP Sys/Eisenberg Pulse Ox Last 24 Hr 97.5 F-98.3 F 87-98 18-20 94-111/58-74 94 Gen: mildly tachypneic at rest Heart: irregular Lung: decreased breath sounds at the bases Abd: soft, nontender Ext: no edema CBC, BMP 04/13/18 06:00 04/13/18 06:00 Active Medications Acetaminophen (Tylenol -) 650 mg PO Q6H PRN PRN Reason: PAIN LEVEL 6-10 Last Admin: 04/11/18 21:17 Dose: 650 mg Allopurinol (Zyloprim -) 100 mg PO DAILY [facility] Last Admin: 04/13/18 09:43 Dose: 100 mg Allopurinol (Zyloprim -) 100 mg PO HS PRN PRN Reason: PAIN Last Admin: 04/12/18 21:15 Dose: 100 mg Cholecalciferol (Vitamin D3 -) 2,000 unit PO DAILY [facility] Last Admin: 04/13/18 09:42 Dose: 2,000 unit Clopidogrel Bisulfate (Plavix -) 75 mg PO DAILY [facility] Last Admin: 04/13/18 09:43 Dose: 75 mg Docusate Sodium (Colace -) 100 mg PO Q12H PRN PRN Reason: CONSTIPATION Last Admin: 03/29/18 23:21 Dose: 100 mg Escitalopram Oxalate (Lexapro -) 10 mg PO DAILY [facility] Last Admin: 04/13/18 09:43 Dose: 10 mg Finasteride (Proscar -) 5 mg PO DAILY [facility] Last Admin: 04/13/18 09:43 Dose: 5 mg Furosemide (Lasix Injection -) 100 mg IVPB BID@0600,1400 [facility] Last Admin: 04/13/18 06:13 Dose: 100 mg Glipizide (Glucotrol -) 2.5 mg PO DAILY@0700 [facility] Last Admin: 04/13/18 06:13 Dose: 2.5 mg Insulin Aspart (Novolog Vial Sliding Scale -) 1 vial SQ ACHS [facility]; Protocol Last Admin: 04/13/18 11:23 Dose: Not Given Metoprolol Succinate (Toprol Xl -) 25 mg PO DAILY [facility] Last Admin: 04/13/18 09:43 Dose: 25 mg Ondansetron HCl (Zofran Injection) 4 mg IVPUSH Q6H PRN PRN Reason: NAUSEA AND/OR VOMITING Potassium Chloride (Potassium Chloride Oral Liquid) 40 meq PO DAILY [facility] Last Admin: 04/13/18 11:00 Dose: 40 meq Potassium Chloride (K-Dur -) 40 meq PO ONCE ONE Stop: 04/13/18 14:01 Rivaroxaban (Xarelto -) 15 mg PO DAILY@1800 [facility] Last Admin: 04/12/18 17:24 Dose: 15 mg Rosuvastatin Calcium (Crestor -) 10 mg PO HS [facility] Last Admin: 04/12/18 21:16 Dose: 10 mg Tamsulosin HCl (Flomax -) 0.4 mg PO BID@0830,2200 [facility] Last Admin: 04/13/18 09:43 Dose: 0.4 mg Zolpidem Tartrate (Ambien -) 5 mg PO HS PRN PRN Reason: INSOMNIA Last Admin: 04/12/18 21:16 Dose: 5 mg A/P Acute on Chronic Systolic Heart Failure Atrial Fibrillation CAD +Troponins likely Demand Ischemia Acute on Chronic Renal Failure HTN DM Hyperlipidemia Hematuria - continue lasix - monitor urine output, creatinine - daily weights - replete lytes - rate controlled - continue anticoagulation - O2 to keep SpO2 >90% - urology f/u
[2018-04-13] MEDS ORDERED: POTASSIUM CHLORIDE TABS 10 MEQ TABLET.ER (FP) PO ONE (14:00)
--- NOTE | 2018-04-13 14:38 | PN ---
Progress Note, Physician History of Present Illness: Pt is asking to have the fluid restriction removed as cannot request all the food or drinks he wants Pt w/o SOB, CP, palpitations, abd pain, N, V. Pt asking to have the Holt remove. - Current Medication List Current Medications: Active Medications Acetaminophen (Tylenol -) 650 mg PO Q6H PRN PRN Reason: PAIN LEVEL 6-10 Last Admin: 04/11/18 21:17 Dose: 650 mg Allopurinol (Zyloprim -) 100 mg PO DAILY [facility] Last Admin: 04/13/18 09:43 Dose: 100 mg Allopurinol (Zyloprim -) 100 mg PO HS PRN PRN Reason: PAIN Last Admin: 04/12/18 21:15 Dose: 100 mg Cholecalciferol (Vitamin D3 -) 2,000 unit PO DAILY [facility] Last Admin: 04/13/18 09:42 Dose: 2,000 unit Clopidogrel Bisulfate (Plavix -) 75 mg PO DAILY [facility] Last Admin: 04/13/18 09:43 Dose: 75 mg Docusate Sodium (Colace -) 100 mg PO Q12H PRN PRN Reason: CONSTIPATION Last Admin: 03/29/18 23:21 Dose: 100 mg Escitalopram Oxalate (Lexapro -) 10 mg PO DAILY [facility] Last Admin: 04/13/18 09:43 Dose: 10 mg Finasteride (Proscar -) 5 mg PO DAILY [facility] Last Admin: 04/13/18 09:43 Dose: 5 mg Furosemide (Lasix Injection -) 100 mg IVPB BID@0600,1400 [facility] Last Admin: 04/13/18 13:23 Dose: 100 mg Glipizide (Glucotrol -) 2.5 mg PO DAILY@0700 [facility] Last Admin: 04/13/18 06:13 Dose: 2.5 mg Insulin Aspart (Novolog Vial Sliding Scale -) 1 vial SQ ACHS [facility]; Protocol Last Admin: 04/13/18 11:23 Dose: Not Given Metoprolol Succinate (Toprol Xl -) 25 mg PO DAILY [facility] Last Admin: 04/13/18 09:43 Dose: 25 mg Ondansetron HCl (Zofran Injection) 4 mg IVPUSH Q6H PRN PRN Reason: NAUSEA AND/OR VOMITING Potassium Chloride (Potassium Chloride Oral Liquid) 40 meq PO DAILY [facility] Last Admin: 04/13/18 11:00 Dose: 40 meq Rivaroxaban (Xarelto -) 15 mg PO DAILY@1800 [facility] Last Admin: 04/12/18 17:24 Dose: 15 mg Rosuvastatin Calcium (Crestor -) 10 mg PO HS [facility] Last Admin: 04/12/18 21:16 Dose: 10 mg Tamsulosin HCl (Flomax -) 0.4 mg PO BID@0830,2200 [facility] Last Admin: 04/13/18 09:43 Dose: 0.4 mg Zolpidem Tartrate (Ambien -) 5 mg PO HS PRN PRN Reason: INSOMNIA Last Admin: 04/12/18 21:16 Dose: 5 mg - Objective Vital Signs: Vital Signs Temperature 97.6 F 04/13/18 10:00 Pulse Rate 92 H 04/13/18 10:00 Respiratory Rate 20 04/13/18 10:00 Blood Pressure 96/62 04/13/18 10:00 O2 Sat by Pulse Oximetry (%) 92 L 04/13/18 09:00 Constitutional: Yes: No Distress, Calm Cardiovascular: Yes: Pulse Irregular, S1, S2 Respiratory: Yes: Regular, CTA Bilaterally (except crackels at right base) Gastrointestinal: Yes: Normal Bowel Sounds, Soft. No: Tenderness Edema: No Neurological: Yes: Alert, Oriented Labs: CBC, BMP 04/13/18 06:00 04/13/18 06:00 Problem List - Problems (1) Acute systolic CHF (congestive heart failure) Code(s): I50.21 - ACUTE SYSTOLIC (CONGESTIVE) HEART FAILURE (2) Elevated troponin I level Code(s): R74.8 - ABNORMAL LEVELS OF OTHER SERUM ENZYMES (3) Hypotension Code(s): I95.9 - HYPOTENSION, UNSPECIFIED (4) PACO (acute kidney injury) Code(s): N17.9 - ACUTE KIDNEY FAILURE, UNSPECIFIED (5) CRF (chronic renal failure) Code(s): N18.9 - CHRONIC KIDNEY DISEASE, UNSPECIFIED (6) Hypercholesteremia Code(s): E78.00 - PURE HYPERCHOLESTEROLEMIA, UNSPECIFIED (7) Hypertension Code(s): I10 - ESSENTIAL (PRIMARY) HYPERTENSION (8) Pleural effusion Code(s): J90 - PLEURAL EFFUSION, NOT ELSEWHERE CLASSIFIED (9) CAD (coronary artery disease) Code(s): I25.10 - ATHSCL HEART DISEASE OF [place] CORONARY ARTERY W/O ANG PCTRS (10) AICD (automatic cardioverter/defibrillator) present Code(s): Z95.810 - PRESENCE OF AUTOMATIC (IMPLANTABLE) CARDIAC DEFIBRILLATOR (11) PAF (paroxysmal atrial fibrillation) Code(s): I48.0 - PAROXYSMAL ATRIAL FIBRILLATION (12) Urinary retention Code(s): R33.9 - RETENTION OF URINE, UNSPECIFIED (13) Hematuria Code(s): R31.9 - HEMATURIA, UNSPECIFIED (14) Postoperative urinary retention Code(s): N99.89 - OTH POSTPROCEDURAL COMPLICATIONS AND DISORDERS OF SYS; R33.8 - OTHER RETENTION OF URINE Assessment/Plan I explained again to pt that fluid restriction is part of CHF treatment and that we are trying to accomodate his requests (as we did it yesterday providing his with coffee at lunch time) without jeopardizing his recovery. Pt with post-op recurrent UR; Holt was reinserted again (04/10/2018); to f/u with regarding Holt management. Pt on Metolazone, in addition to IV Lasix. To f/u AM labs. Pt's weight is trending down. Case was discussed yesterday with Dr. Soriano; he wanted to continue same diuretic treatment (IV Lasix and PO Metolazone) for 1-2 more days then switch to PO diuretics, and he considers that recurrent urinary retention prevents pt' s CHF to treated in a timely mater. s/p TUVP (03/27/2018); Holt was removed, urinated well, then developed urinary retention; Holt cath was reinserted, then again removed; pt redeveloped UR and Holt was reinserted (04/10/2018). Pt on Xarelto and Plavix. Pt was admitted to ICU (03/10/2018), transferred to Telemetry. Serial CE -stable; CE were found to be elevated in the settings of PACO and CHF ( probable demand ischemia) ICU/CCM, Cardio, Renal, consults are appreciated. Home med on hold at admission: Losartan, Spironolactone, Torsemide, Metformin. Pt on Glipizide. BGM with Novolog coverage. Pt is tolerating Metoprolol. Pt would benefit of ACEI or ARB; can be restarted as outpatient. Pt's case was d/w pt's nurse.
[2018-04-13] MEDS: RIVAROXABAN 15 MG TABLET PO SCH (16:59)
[2018-04-13] MEDS: ROSUVASTATIN CA 10 MG TABLET (FP) PO SCH (22:11)
[2018-04-13] MEDS: ZOLPIDEM TARTRATE 5 MG TABLET PO PRN (22:11)
[2018-04-13] MEDS: ALLOPURINOL 100 MG TABLET (FP) PO PRN (22:12)
[2018-04-14] MEDS: FUROSEMIDE 100 MG/10 ML INJECTABLE VIAL IVPB SCH (05:41)
[2018-04-14] MEDS: glipiZIDE 5 MG TABLET (FP) PO SCH (06:32)
[2018-04-14] MEDS: INSULIN SLIDING SCALE (NOVOLOG) 1 VIAL SQ SCH ×4 (06:33→21:32)
[2018-04-14] MEDS: CLOPIDOGREL BISULFATE 75 MG TABLET (FP) PO SCH (09:16)
[2018-04-14] MEDS: FINASTERIDE 5 MG TABLET (FP) PO SCH (09:16)
[2018-04-14] MEDS: POTASSIUM CHLORIDE ORAL LIQUID 20 MEQ/15 ML PO SCH (09:16)
[2018-04-14] MEDS: metoPROLOL SUCCINATE 25 MG TAB.SR.24H (FP) PO SCH (09:16)
[2018-04-14] MEDS: CHOLECALCIFEROL (VITAMIN D3) 1,000 UNIT TABLET (FP) PO SCH (09:16)
[2018-04-14] MEDS: ESCITALOPRAM OXALATE 10 MG TABLET (FP) PO SCH (09:16)
[2018-04-14] MEDS: TAMSULOSIN HCL 0.4 MG CAP PO SCH ×2 (09:16→21:32)
[2018-04-14] MEDS: ALLOPURINOL 100 MG TABLET (FP) PO SCH (09:16)
[2018-04-14 09:39] LABS: ANION GAP 15 MMOL/L (8-16); BLOOD UREA NITROGEN 43 mg/dL (7-18); CALCIUM 9.7 mg/dL (8.5-10.1); CHLORIDE 97 mmol/L (98-107); CO2 29 mmol/L (21-32); CREATININE 1.2 mg/dL (0.55-1.3); GLUCOSE,RANDOM 130 mg/dL (74-106); POTASSIUM 3.3 mmol/L (3.5-5.1); SODIUM 140 mmol/L (136-145)
--- NOTE | 2018-04-14 10:42 | PN ---
Progress Note (short form) - Note Progress Note: cc: sob s: no chest pain, palps, dizzy, lightheadedness sob Current Medications Generic Name Dose Route Start Last Admin Trade Name Freq PRN Reason Stop Dose Admin Acetaminophen 650 mg 04/06/18 09:04 04/11/18 21:17 Tylenol - PO 650 mg Q6H PRN Administration PAIN LEVEL 6-10 Allopurinol 100 mg 03/28/18 10:00 04/14/18 09:16 Zyloprim - PO 100 mg DAILY [facility] Administration Allopurinol 100 mg 03/28/18 17:57 04/13/18 22:12 Zyloprim - PO 100 mg HS PRN Administration PAIN Cholecalciferol 2,000 unit 03/28/18 10:00 04/14/18 09:16 Vitamin D3 - PO 2,000 unit DAILY [facility] Administration Clopidogrel Bisulfate 75 mg 03/30/18 10:00 04/14/18 09:16 Plavix - PO 75 mg DAILY [facility] Administration Docusate Sodium 100 mg 03/27/18 16:05 03/29/18 23:21 Colace - PO 100 mg Q12H PRN Administration CONSTIPATION Escitalopram Oxalate 10 mg 03/28/18 10:00 04/14/18 09:16 Lexapro - PO 10 mg DAILY [facility] Administration Finasteride 5 mg 03/28/18 10:00 04/14/18 09:16 Proscar - PO 5 mg DAILY [facility] Administration Glipizide 2.5 mg 03/28/18 07:00 04/14/18 06:32 Glucotrol - PO 2.5 mg DAILY@0700 [facility] Administration Insulin Aspart 1 vial 03/27/18 16:30 04/14/18 06:33 Novolog Vial Sliding Scale - SQ Not Given [facility] Protocol Metoprolol Succinate 25 mg 03/31/18 10:00 04/14/18 09:16 Toprol Xl - PO 25 mg DAILY [facility] Administration Ondansetron HCl 4 mg 03/27/18 15:04 Zofran Injection IVPUSH Q6H PRN NAUSEA AND/OR VOMITING Potassium Chloride 40 meq 04/13/18 10:00 04/14/18 09:16 Potassium Chloride Oral Liquid PO 40 meq DAILY [facility] Administration Rivaroxaban 15 mg 03/29/18 18:00 04/13/18 16:59 Xarelto - PO 15 mg DAILY@1800 [facility] Administration Rosuvastatin Calcium 10 mg 03/27/18 22:00 04/13/18 22:11 Crestor - PO 10 mg HS [facility] Administration Tamsulosin HCl 0.4 mg 03/27/18 22:00 04/14/18 09:16 Flomax - PO 0.4 mg BID@0830,2200 [facility] Administration Torsemide 100 mg 04/14/18 14:00 Demadex - PO BID@0600,1400 [facility] Zolpidem Tartrate 5 mg 04/11/18 21:33 04/13/18 22:11 Ambien - PO 5 mg HS PRN Administration INSOMNIA Vital Signs Period Temp Pulse Resp BP Sys/Eisenberg Pulse Ox Last 24 Hr 97 F-98.3 F 92-97 18-18 93-105/56-64 92-92 Constitutional: Yes: No Distress, Calm Eyes: No: Sclera Icterus HENT: No: Nasal Congestion Cardiovascular: Yes: Regular Rate and Rhythm, S1, S2, Other (PMI non diplaced). No: Gallop, Murmur Respiratory: Yes: CTA Bilaterally. No: Accessory Muscle Use, Wheezes Gastrointestinal: Yes: Normal Bowel Sounds, Soft. No: Tenderness Extremities: No: Cyanosis Edema: No Integumentary: No: Jaundice diaphoresis Neurological: Yes: Alert, Oriented (x3) Psychiatric: No: Agitated Assessment/Plan echo with definity 07/2017 dilated LV, EF 20-25%, with apical AK, HK of inf and lat [place], grade II diastolic dysfunction, cath 04/2017 MLM 80-90% with severe calc, p[employer] fills with collat from LCX and RCA. EF 15% dyskinetic apex, s/p LM PCI tele: sinus acute on chronic systolic HF s/p ICD - admitting symptoms concerning for CHF exacerbation, BNP 8000 - diuresed with lasix 80 iv bid earlier this admit, no standing wts done then. - changed to torsemide 80 mg BID (home dose), then eventually changed to torsemide 80 qd which he is currently on - med dosing has been limited by low bp--spirono and losartan from home were held here. metoprolol dose reduced. - 03/30: resumed lasix 80 iv bid. metolazone given in subsequent days on prn basis (5-7.5 mg). diuresed well and sob improved significantly. - 04/06: curtis cath replaced by urology-->creat improved subsequent - 04/09: curtis removed. CXR with increased congestion, shira pleural effusions. metolazone given -04/11-28: had urinary retention, curtis re-inserted. -04/13: wt has been progressively declining, today 173 lbs (peak wt here 183). renal fxn stable. CXR yesterday with ongoing vascular engorgement, pulm edema, effusions but lower lobe edema improved vs 04/09. remains with JVD (improved vs earlier), no more sob sx's. -pt reports prior stable home wt was 185--suspect he was volume overloaded chronically at that wt but tolerating this without sx's. -repeat lasix 100 iv bid with metolazone 7.5 today. -04/14: Vol status improved, likely at baseline now. Will change to torsemide 100 po bid (+/- metolazone depending on how does as outpt). Pt will likely be ready for discharge from CV standpoint on sunday. -CHF will likely be difficult to optimize until urinary obstruction issues are fully treated--definitive plan per . - resume ARB +/- spironolactone later, once pt well diuresed and can reassess bp - continue metoprolol succinate 25 mg daily VTach: - brief NSVT on tele. - cont metoprolol (dose limited by low bp) - fluid status optimization as doing - K/Mag > 4/2 CAD s/p LM stent 04/2017 - cont statin, metoprolol, plavix pos troponin -borderline trop elevation with flat trend and nl ck, not c/w acs afib - restarted on metoprolol 25 mg BID with improved rates, up titrate as tolerated however has had low BP - cont Xarelto PACO on CKD, urinary obstruction: - s/p TUVP here, continues to have failure to void on tamsulosin, now requiring curtis again--plan per is to go home with curtis and f/u with them as outpt - creat has normalized, remains stable - hematuria persists in curtis bag
--- NOTE | 2018-04-14 13:28 | PN ---
Progress Note (short form) - Note Progress Note: PULMONARY Breathing continues to improve. Vital Signs Period Temp Pulse Resp BP Sys/Eisenberg Pulse Ox Last 24 Hr 97 F-98.3 F 92-97 18-18 93-105/56-64 92-92 Gen: less tachypneic Heart: irregular Lung: decreased breath sounds at the bases Abd: soft, nontender Ext: no edema CBC, BMP 04/13/18 06:00 04/14/18 06:22 Active Medications Acetaminophen (Tylenol -) 650 mg PO Q6H PRN PRN Reason: PAIN LEVEL 6-10 Last Admin: 04/11/18 21:17 Dose: 650 mg Allopurinol (Zyloprim -) 100 mg PO DAILY [facility] Last Admin: 04/14/18 09:16 Dose: 100 mg Allopurinol (Zyloprim -) 100 mg PO HS PRN PRN Reason: PAIN Last Admin: 04/13/18 22:12 Dose: 100 mg Cholecalciferol (Vitamin D3 -) 2,000 unit PO DAILY [facility] Last Admin: 04/14/18 09:16 Dose: 2,000 unit Clopidogrel Bisulfate (Plavix -) 75 mg PO DAILY [facility] Last Admin: 04/14/18 09:16 Dose: 75 mg Docusate Sodium (Colace -) 100 mg PO Q12H PRN PRN Reason: CONSTIPATION Last Admin: 03/29/18 23:21 Dose: 100 mg Escitalopram Oxalate (Lexapro -) 10 mg PO DAILY [facility] Last Admin: 04/14/18 09:16 Dose: 10 mg Finasteride (Proscar -) 5 mg PO DAILY [facility] Last Admin: 04/14/18 09:16 Dose: 5 mg Glipizide (Glucotrol -) 2.5 mg PO DAILY@0700 [facility] Last Admin: 04/14/18 06:32 Dose: 2.5 mg Insulin Aspart (Novolog Vial Sliding Scale -) 1 vial SQ ACHS [facility]; Protocol Last Admin: 04/14/18 12:38 Dose: Not Given Metoprolol Succinate (Toprol Xl -) 25 mg PO DAILY [facility] Last Admin: 04/14/18 09:16 Dose: 25 mg Ondansetron HCl (Zofran Injection) 4 mg IVPUSH Q6H PRN PRN Reason: NAUSEA AND/OR VOMITING Potassium Chloride (Potassium Chloride Oral Liquid) 40 meq PO DAILY [facility] Last Admin: 04/14/18 09:16 Dose: 40 meq Rivaroxaban (Xarelto -) 15 mg PO DAILY@1800 [facility] Last Admin: 04/13/18 16:59 Dose: 15 mg Rosuvastatin Calcium (Crestor -) 10 mg PO HS [facility] Last Admin: 04/13/18 22:11 Dose: 10 mg Tamsulosin HCl (Flomax -) 0.4 mg PO BID@0830,2200 [facility] Last Admin: 04/14/18 09:16 Dose: 0.4 mg Torsemide (Demadex -) 100 mg PO BID@0600,1400 [facility] Zolpidem Tartrate (Ambien -) 5 mg PO HS PRN PRN Reason: INSOMNIA Last Admin: 04/13/18 22:11 Dose: 5 mg A/P Acute on Chronic Systolic Heart Failure Atrial Fibrillation CAD +Troponins likely Demand Ischemia Acute on Chronic Renal Failure HTN DM Hyperlipidemia Hematuria - continue torsemide - monitor urine output, creatinine - daily weights - replete lytes - rate controlled - continue anticoagulation - O2 to keep SpO2 >90% - urology f/u
[2018-04-14] MEDS: TORSEMIDE 100 MG TABLET PO SCH (14:50)
--- NOTE | 2018-04-14 15:22 | PN ---
Progress Note, Physician History of Present Illness: Pt w/o SOB, CP, palpitations, abd pain, N, V. Pt breathing well w/o oxygen. Pt angelo Holt removed today. - Current Medication List Current Medications: Active Medications Acetaminophen (Tylenol -) 650 mg PO Q6H PRN PRN Reason: PAIN LEVEL 6-10 Last Admin: 04/11/18 21:17 Dose: 650 mg Allopurinol (Zyloprim -) 100 mg PO DAILY [facility] Last Admin: 04/14/18 09:16 Dose: 100 mg Allopurinol (Zyloprim -) 100 mg PO HS PRN PRN Reason: PAIN Last Admin: 04/13/18 22:12 Dose: 100 mg Cholecalciferol (Vitamin D3 -) 2,000 unit PO DAILY [facility] Last Admin: 04/14/18 09:16 Dose: 2,000 unit Clopidogrel Bisulfate (Plavix -) 75 mg PO DAILY [facility] Last Admin: 04/14/18 09:16 Dose: 75 mg Docusate Sodium (Colace -) 100 mg PO Q12H PRN PRN Reason: CONSTIPATION Last Admin: 03/29/18 23:21 Dose: 100 mg Escitalopram Oxalate (Lexapro -) 10 mg PO DAILY [facility] Last Admin: 04/14/18 09:16 Dose: 10 mg Finasteride (Proscar -) 5 mg PO DAILY [facility] Last Admin: 04/14/18 09:16 Dose: 5 mg Glipizide (Glucotrol -) 2.5 mg PO DAILY@0700 [facility] Last Admin: 04/14/18 06:32 Dose: 2.5 mg Insulin Aspart (Novolog Vial Sliding Scale -) 1 vial SQ [facility]; Protocol Last Admin: 04/14/18 12:38 Dose: Not Given Metoprolol Succinate (Toprol Xl -) 25 mg PO DAILY [facility] Last Admin: 04/14/18 09:16 Dose: 25 mg Ondansetron HCl (Zofran Injection) 4 mg IVPUSH Q6H PRN PRN Reason: NAUSEA AND/OR VOMITING Potassium Chloride (Potassium Chloride Oral Liquid) 40 meq PO DAILY [facility] Last Admin: 04/14/18 09:16 Dose: 40 meq Rivaroxaban (Xarelto -) 15 mg PO DAILY@1800 [facility] Last Admin: 04/13/18 16:59 Dose: 15 mg Rosuvastatin Calcium (Crestor -) 10 mg PO HS [facility] Last Admin: 04/13/18 22:11 Dose: 10 mg Tamsulosin HCl (Flomax -) 0.4 mg PO BID@0830,2200 [facility] Last Admin: 04/14/18 09:16 Dose: 0.4 mg Torsemide (Demadex -) 100 mg PO BID@0600,1400 [facility] Last Admin: 04/14/18 14:50 Dose: 100 mg Zolpidem Tartrate (Ambien -) 5 mg PO HS PRN PRN Reason: INSOMNIA Last Admin: 04/13/18 22:11 Dose: 5 mg - Objective Vital Signs: Vital Signs Temperature 97.9 F 04/14/18 14:06 Pulse Rate 99 H 04/14/18 14:06 Respiratory Rate 20 04/14/18 14:06 Blood Pressure 101/67 04/14/18 14:06 O2 Sat by Pulse Oximetry (%) 92 L 04/14/18 09:00 Constitutional: Yes: No Distress, Calm Cardiovascular: Yes: Pulse Irregular, S1, S2 Respiratory: Yes: Regular, CTA Bilaterally (except right bbase crackles) Gastrointestinal: Yes: Normal Bowel Sounds, Soft. No: Tenderness Edema: No Neurological: Yes: Alert, Oriented Labs: CBC, BMP 04/13/18 06:00 04/14/18 06:22 Problem List - Problems (1) Acute systolic CHF (congestive heart failure) Code(s): I50.21 - ACUTE SYSTOLIC (CONGESTIVE) HEART FAILURE (2) Elevated troponin I level Code(s): R74.8 - ABNORMAL LEVELS OF OTHER SERUM ENZYMES (3) Hypotension Code(s): I95.9 - HYPOTENSION, UNSPECIFIED (4) PACO (acute kidney injury) Code(s): N17.9 - ACUTE KIDNEY FAILURE, UNSPECIFIED (5) CRF (chronic renal failure) Code(s): N18.9 - CHRONIC KIDNEY DISEASE, UNSPECIFIED (6) Hypercholesteremia Code(s): E78.00 - PURE HYPERCHOLESTEROLEMIA, UNSPECIFIED (7) Hypertension Code(s): I10 - ESSENTIAL (PRIMARY) HYPERTENSION (8) Pleural effusion Code(s): J90 - PLEURAL EFFUSION, NOT ELSEWHERE CLASSIFIED (9) CAD (coronary artery disease) Code(s): I25.10 - ATHSCL HEART DISEASE OF [place] CORONARY ARTERY W/O ANG PCTRS (10) AICD (automatic cardioverter/defibrillator) present Code(s): Z95.810 - PRESENCE OF AUTOMATIC (IMPLANTABLE) CARDIAC DEFIBRILLATOR (11) PAF (paroxysmal atrial fibrillation) Code(s): I48.0 - PAROXYSMAL ATRIAL FIBRILLATION (12) Urinary retention Code(s): R33.9 - RETENTION OF URINE, UNSPECIFIED (13) Hematuria Code(s): R31.9 - HEMATURIA, UNSPECIFIED (14) Postoperative urinary retention Code(s): N99.89 - OTH POSTPROCEDURAL COMPLICATIONS AND DISORDERS OF SYS; R33.8 - OTHER RETENTION OF URINE Assessment/Plan Pt with post-op recurrent UR; Holt was reinserted again (04/10/2018); Holt was removed today (03/3018) -to f/u residual post void volume with bladder scan Pt on Metolazone, in addition to IV Lasix. Lasix to be switched today to Torsemide. Pt's weight is trending down. Replete K s/p TUVP (03/27/2018); Holt was removed, urinated well, then developed urinary retention; Holt cath was reinserted, then again removed; pt redeveloped UR and Holt was reinserted (04/10/2018). Pt on Xarelto and Plavix. Pt was admitted to ICU (03/10/2018), transferred to Telemetry. Serial CE -stable; CE were found to be elevated in the settings of PACO and CHF ( probable demand ischemia) ICU/CCM, Cardio, Renal, consults are appreciated. Home med on hold at admission: Losartan, Spironolactone, Torsemide, Metformin. Pt on Glipizide. BGM with Novolog coverage. Pt is tolerating Metoprolol; pt's blood presure is improved. Pt would benefit of ACEI or ARB; can be restarted as tolerated. DC planning for Sunday -pt is aware Pt's case was d/w pt's nurse.
[2018-04-14] MEDS: RIVAROXABAN 15 MG TABLET PO SCH (17:07)
[2018-04-14] MEDS ORDERED: POTASSIUM CHLORIDE TABS 20 MEQ TABLET.ER (FP) PO ONE (18:30)
[2018-04-14] MEDS: ROSUVASTATIN CA 10 MG TABLET (FP) PO SCH (21:32)
[2018-04-14] MEDS: ALLOPURINOL 100 MG TABLET (FP) PO PRN (21:36)
[2018-04-14] MEDS: ZOLPIDEM TARTRATE 5 MG TABLET PO PRN (21:36)
[2018-04-15] MEDS ORDERED: PT OWN MED DRAWER 7, Y5N ONE ×2 (06:10→18:58)
[2018-04-15] MEDS: INSULIN SLIDING SCALE (NOVOLOG) 1 VIAL SQ SCH ×3 (06:11→17:11)
[2018-04-15] MEDS: glipiZIDE 5 MG TABLET (FP) PO SCH (06:16)
[2018-04-15] MEDS: TORSEMIDE 100 MG TABLET PO SCH ×2 (06:16→15:00)
[2018-04-15 09:19] LABS: HEMATOCRIT 39.7 % (35.4-49); HEMOGLOBIN 12.4 GM/dL (11.7-16.9); MCH 25.9 pg (25.7-33.7); MCHC 31.2 g/dl (32.0-35.9); MEAN CELL VOLUME 82.9 fl (80-96); MEAN PLT VOLUME 6.7 fl (7.5-11.1); PLATELET COUNT 276 K/MM3 (134-434); RBC 4.79 M/mm3 (4.00-5.60); RDW 17.2 % (11.9-15.9); WHITE BLOOD COUNT 9.4 K/mm3 (4.0-10.0)
[2018-04-15] MEDS: CHOLECALCIFEROL (VITAMIN D3) 1,000 UNIT TABLET (FP) PO SCH (10:07)
[2018-04-15] MEDS: metoPROLOL SUCCINATE 25 MG TAB.SR.24H (FP) PO SCH (10:07)
[2018-04-15] MEDS: TAMSULOSIN HCL 0.4 MG CAP PO SCH (10:07)
[2018-04-15] MEDS: ALLOPURINOL 100 MG TABLET (FP) PO SCH (10:07)
[2018-04-15] MEDS: POTASSIUM CHLORIDE ORAL LIQUID 20 MEQ/15 ML PO SCH (10:08)
[2018-04-15] MEDS: FINASTERIDE 5 MG TABLET (FP) PO SCH (10:08)
[2018-04-15] MEDS: ESCITALOPRAM OXALATE 10 MG TABLET (FP) PO SCH (10:08)
[2018-04-15] MEDS: CLOPIDOGREL BISULFATE 75 MG TABLET (FP) PO SCH (10:08)
--- NOTE | 2018-04-15 10:54 | PN ---
Progress Note (short form) - Note Progress Note: cc: sob s: no chest pain, palps, dizzy, lightheadedness sob Current Medications Generic Name Dose Route Start Last Admin Trade Name Freq PRN Reason Stop Dose Admin Acetaminophen 650 mg 04/06/18 09:04 04/11/18 21:17 Tylenol - PO 650 mg Q6H PRN Administration PAIN LEVEL 6-10 Allopurinol 100 mg 03/28/18 10:00 04/15/18 10:07 Zyloprim - PO 100 mg DAILY ABI Administration Allopurinol 100 mg 03/28/18 17:57 04/14/18 21:36 Zyloprim - PO 100 mg HS PRN Administration PAIN Cholecalciferol 2,000 unit 03/28/18 10:00 04/15/18 10:07 Vitamin D3 - PO 2,000 unit DAILY ABI Administration Clopidogrel Bisulfate 75 mg 03/30/18 10:00 04/15/18 10:08 Plavix - PO 75 mg DAILY [facility] Administration Docusate Sodium 100 mg 03/27/18 16:05 03/29/18 23:21 Colace - PO 100 mg Q12H PRN Administration CONSTIPATION Escitalopram Oxalate 10 mg 03/28/18 10:00 04/15/18 10:08 Lexapro - PO 10 mg DAILY [facility] Administration Finasteride 5 mg 03/28/18 10:00 04/15/18 10:08 Proscar - PO 5 mg DAILY [facility] Administration Glipizide 2.5 mg 03/28/18 07:00 04/15/18 06:16 Glucotrol - PO 2.5 mg DAILY@0700 [facility] Administration Insulin Aspart 1 vial 03/27/18 16:30 04/15/18 06:11 Novolog Vial Sliding Scale - SQ Not Given ACHS [facility] Protocol Metoprolol Succinate 25 mg 03/31/18 10:00 04/15/18 10:07 Toprol Xl - PO 25 mg DAILY [facility] Administration Ondansetron HCl 4 mg 03/27/18 15:04 Zofran Injection IVPUSH Q6H PRN NAUSEA AND/OR VOMITING Potassium Chloride 40 meq 04/13/18 10:00 04/15/18 10:08 Potassium Chloride Oral Liquid PO 40 meq DAILY [facility] Administration Rivaroxaban 15 mg 03/29/18 18:00 04/14/18 17:07 Xarelto - PO 15 mg DAILY@1800 [facility] Administration Rosuvastatin Calcium 10 mg 03/27/18 22:00 04/14/18 21:32 Crestor - PO 10 mg HS ABI Administration Tamsulosin HCl 0.4 mg 03/27/18 22:00 04/15/18 10:07 Flomax - PO 0.4 mg BID@0830,2200 [facility] Administration Torsemide 100 mg 04/14/18 14:00 04/15/18 06:16 Demadex - PO 100 mg BID@0600,1400 [facility] Administration Zolpidem Tartrate 5 mg 04/11/18 21:33 04/14/18 21:36 Ambien - PO 5 mg HS PRN Administration INSOMNIA Vital Signs Period Temp Pulse Resp BP Sys/Eisenberg Pulse Ox Last 24 Hr 97.6 F-97.9 F 92-99 18-20 94-101/62-69 94-94 Constitutional: Yes: No Distress, Calm Eyes: No: Sclera Icterus HENT: No: Nasal Congestion Cardiovascular: Yes: Regular Rate and Rhythm, S1, S2, Other (PMI non diplaced). No: Gallop, Murmur Respiratory: Yes: CTA Bilaterally. No: Accessory Muscle Use, Wheezes Gastrointestinal: Yes: Normal Bowel Sounds, Soft. No: Tenderness Extremities: No: Cyanosis Edema: No Integumentary: No: Jaundice diaphoresis Neurological: Yes: Alert, Oriented (x3) Psychiatric: No: Agitated Assessment/Plan echo with definity 07/2017 dilated LV, EF 20-25%, with apical AK, HK of inf and lat [place], grade II diastolic dysfunction, cath 04/2017 MLM 80-90% with severe calc, pLAD GAME [place]EN fills with collat from LCX and RCA. EF 15% dyskinetic apex, s/p LM PCI tele: sinus acute on chronic systolic HF s/p ICD - admitting symptoms concerning for CHF exacerbation, BNP 8000 - diuresed with lasix 80 iv bid earlier this admit, no standing wts done then. - changed to torsemide 80 mg BID (home dose), then eventually changed to torsemide 80 qd which he is currently on - med dosing has been limited by low bp--spirono and losartan from home were held here. metoprolol dose reduced. - 03/30: resumed lasix 80 iv bid. metolazone given in subsequent days on prn basis (5-7.5 mg). diuresed well and sob improved significantly. - 04/06: curtis cath replaced by urology-->creat improved subsequent - 04/09: curtis removed. CXR with increased congestion, shira pleural effusions. metolazone given -04/11-28: had urinary retention, curtis re-inserted. -04/13: wt has been progressively declining, today 173 lbs (peak wt here 183). renal fxn stable. CXR yesterday with ongoing vascular engorgement, pulm edema, effusions but lower lobe edema improved vs 04/09. remains with JVD (improved vs earlier), no more sob sx's. -pt reports prior stable home wt was 185--suspect he was volume overloaded chronically at that wt but tolerating this without sx's. -repeat lasix 100 iv bid with metolazone 7.5 today. -04/14: Vol status improved, likely at baseline now. Will change to torsemide 100 po bid (+/- metolazone depending on how does as outpt). Pt will likely be ready for discharge from CV standpoint on sunday. -04/15: vol status much improved, at baseline now. cont torsemide 100 mg po bid (+/- metolazone depending on how does as outpt). cont kcl. Still with residual urine after taking curtis out, may lead to recurrent chf exacerbations. f/u pending to decide further plans in regards to curtis. Otherwise stable for dc from cardiac pov. - resume ARB +/- spironolactone later, once pt well diuresed and can reassess bp - continue metoprolol succinate 25 mg daily VTach: - brief NSVT on tele. - cont metoprolol (dose limited by low bp) - fluid status optimization as doing CAD s/p LM stent 04/2017 - cont statin, metoprolol, plavix pos troponin -borderline trop elevation with flat trend and nl ck, not c/w acs afib - restarted on metoprolol 25 mg BID with improved rates, up titrate as tolerated however has had low BP - cont Xarelto PACO on CKD, urinary obstruction: - s/p TUVP here. cr improved now.
[2018-04-15 10:58] LABS: ALBUMIN 3.2 g/dl (3.4-5.0); ALK PHOS 70 U/L (45-117); ANION GAP 14 MMOL/L (8-16); BILIRUBIN,TOTAL 1.1 mg/dL (0.2-1); BLOOD UREA NITROGEN 44 mg/dL (7-18); CALCIUM 9.9 mg/dL (8.5-10.1); CHLORIDE 97 mmol/L (98-107); CO2 29 mmol/L (21-32); CREATININE 1.5 mg/dL (0.55-1.3); GLUCOSE,RANDOM 176 mg/dL (74-106); POTASSIUM 3.3 mmol/L (3.5-5.1); SGOT/AST 9 U/L (15-37); SGPT/ALT 11 U/L (13-61); SODIUM 139 mmol/L (136-145); TOT PROT 6.7 g/dl (6.4-8.2)
--- NOTE | 2018-04-15 11:02 | PN ---
Progress Note, Physician History of Present Illness: pulmonary alert,dyspnea improving,unable to void,+ hematuria - Current Medication List Current Medications: Active Medications Acetaminophen (Tylenol -) 650 mg PO Q6H PRN PRN Reason: PAIN LEVEL 6-10 Last Admin: 04/11/18 21:17 Dose: 650 mg Allopurinol (Zyloprim -) 100 mg PO DAILY [facility] Last Admin: 04/15/18 10:07 Dose: 100 mg Allopurinol (Zyloprim -) 100 mg PO HS PRN PRN Reason: PAIN Last Admin: 04/14/18 21:36 Dose: 100 mg Cholecalciferol (Vitamin D3 -) 2,000 unit PO DAILY [facility] Last Admin: 04/15/18 10:07 Dose: 2,000 unit Clopidogrel Bisulfate (Plavix -) 75 mg PO DAILY [facility] Last Admin: 04/15/18 10:08 Dose: 75 mg Docusate Sodium (Colace -) 100 mg PO Q12H PRN PRN Reason: CONSTIPATION Last Admin: 03/29/18 23:21 Dose: 100 mg Escitalopram Oxalate (Lexapro -) 10 mg PO DAILY [facility] Last Admin: 04/15/18 10:08 Dose: 10 mg Finasteride (Proscar -) 5 mg PO DAILY [facility] Last Admin: 04/15/18 10:08 Dose: 5 mg Glipizide (Glucotrol -) 2.5 mg PO DAILY@0700 [facility] Last Admin: 04/15/18 06:16 Dose: 2.5 mg Insulin Aspart (Novolog Vial Sliding Scale -) 1 vial SQ [facility]; Protocol Last Admin: 04/15/18 06:11 Dose: Not Given Metoprolol Succinate (Toprol Xl -) 25 mg PO DAILY [facility] Last Admin: 04/15/18 10:07 Dose: 25 mg Ondansetron HCl (Zofran Injection) 4 mg IVPUSH Q6H PRN PRN Reason: NAUSEA AND/OR VOMITING Potassium Chloride (Potassium Chloride Oral Liquid) 40 meq PO DAILY [facility] Last Admin: 04/15/18 10:08 Dose: 40 meq Rivaroxaban (Xarelto -) 15 mg PO DAILY@1800 [facility] Last Admin: 04/14/18 17:07 Dose: 15 mg Rosuvastatin Calcium (Crestor -) 10 mg PO HS [facility] Last Admin: 04/14/18 21:32 Dose: 10 mg Tamsulosin HCl (Flomax -) 0.4 mg PO BID@0830,2200 [facility] Last Admin: 04/15/18 10:07 Dose: 0.4 mg Torsemide (Demadex -) 100 mg PO BID@0600,1400 [facility] Last Admin: 04/15/18 06:16 Dose: 100 mg Zolpidem Tartrate (Ambien -) 5 mg PO HS PRN PRN Reason: INSOMNIA Last Admin: 04/14/18 21:36 Dose: 5 mg - Objective Vital Signs: Vital Signs Temperature 97.9 F 04/15/18 06:00 Pulse Rate 92 H 04/15/18 09:00 Respiratory Rate 18 04/15/18 09:00 Blood Pressure 94/62 04/15/18 09:00 O2 Sat by Pulse Oximetry (%) 94 L 04/15/18 08:59 Constitutional: Yes: Well Nourished, Calm Eyes: Yes: WNL HENT: Yes: WNL Neck: Yes: WNL Cardiovascular: Yes: Pulse Irregular, S1, S2 Respiratory: Yes: Rales (bibasilar crackles) Gastrointestinal: Yes: Normal Bowel Sounds, Soft Extremities: Yes: WNL Edema: No Labs: CBC, BMP 04/15/18 09:03 04/15/18 09:03 Problem List - Problems (1) AICD (automatic cardioverter/defibrillator) present Code(s): Z95.810 - PRESENCE OF AUTOMATIC (IMPLANTABLE) CARDIAC DEFIBRILLATOR (2) PACO (acute kidney injury) Code(s): N17.9 - ACUTE KIDNEY FAILURE, UNSPECIFIED (3) Acute systolic CHF (congestive heart failure) Code(s): I50.21 - ACUTE SYSTOLIC (CONGESTIVE) HEART FAILURE (4) CAD (coronary artery disease) Code(s): I25.10 - ATHSCL HEART DISEASE OF [place] CORONARY ARTERY W/O ANG PCTRS (5) Diabetes mellitus Code(s): E11.9 - TYPE 2 DIABETES MELLITUS WITHOUT COMPLICATIONS (6) Hypercholesteremia Code(s): E78.00 - PURE HYPERCHOLESTEROLEMIA, UNSPECIFIED (7) Elevated troponin I level Code(s): R74.8 - ABNORMAL LEVELS OF OTHER SERUM ENZYMES (8) Hematuria Code(s): R31.9 - HEMATURIA, UNSPECIFIED (9) Hypertension Code(s): I10 - ESSENTIAL (PRIMARY) HYPERTENSION Assessment/Plan IMP: Acute on Chronic Systolic Heart Failure improved Atrial Fibrillation CAD +Troponins likely Demand Ischemia Acute on Chronic Renal Failure HTN DM Hyperlipidemia Hematuria - demedex - zaroxlyn - monitor urine output, creatinine - daily weights - Incentive spirometry - rate controlled with Beta Mili - O2 to maintain saturation - f/u DR CÁRDENAS
--- NOTE | 2018-04-15 12:15 | DS ---
Physical Examination Vital Signs: Vital Signs Temperature 97.9 F 04/15/18 06:00 Pulse Rate 92 H 04/15/18 09:00 Respiratory Rate 18 04/15/18 09:00 Blood Pressure 94/62 04/15/18 09:00 O2 Sat by Pulse Oximetry (%) 94 L 04/15/18 08:59 Findings/Remarks: Pt w/o SOB, CG, SOB, abd pain, N, V. Pt is breathing well w/o oxygen, no ROJO. Pt with pink urine (Holt cath is out since yesterday -per Dr. Laila Dial) Constitutional: Yes: No Distress, Calm Cardiovascular: Yes: Regular Rate and Rhythm, S1, S2 Respiratory: Yes: Regular, CTA Bilaterally. No: Rales Gastrointestinal: Yes: Normal Bowel Sounds, Soft. No: Palpable Mass, Tenderness Edema: No Neurological: Yes: Alert, Oriented Labs: CBC, BMP 04/15/18 09:03 04/15/18 09:03 Discharge Summary Reason For Visit: CHF Current Active Problems AICD (automatic cardioverter/defibrillator) present (Acute) PACO (acute kidney injury) (Acute) Acute systolic CHF (congestive heart failure) (Acute) CAD (coronary artery disease) (Acute) CHF (congestive heart failure) (Acute) CRF (chronic renal failure) (Acute) Elevated troponin I level (Acute) Hematuria (Acute) Hypokalemia (Acute) Hypotension (Acute) PAF (paroxysmal atrial fibrillation) (Acute) Postoperative urinary retention (Acute) Urinary retention (Acute) Procedures: Principal: CXR's. Bladder US. Kidneys US Hospital Course: Pt with significant Hx/o A Fib (on AC), CHF with low EF (15 to 25 %), CRF came to ER c/o ROJO, orthopnea. Pt as admitted for acute CHF exacerbation; he was noticed to have elevated CE. Pt was started on Lasix IV drip and was admitted to ICU. Pt with hypotension, home medications were held, later readjusted. It was noticed pt to have UR and Holt was placed by (Dr. Thomas, then care was changed to Dr. Laila Dial -per family request). Pt was seen in consult by CCM/ Pulmonary (Dr. SUAREZ/ Edward/ Elpidio), Cardio (Dr. Duong/ Christie/ Shabbir). Renal (Dr. Casey/ Yan). While in ICU pt's Lasix was changed to IVP for better diuresis. Pt' s breathing improved and diuretic was changed to PO Torsemide with good control of CHF, improvement in renal function and pt's weight. Per urology TOV was given but pt redeveloped UR with large bladder residual volume, pt refused Holt reinsertion, wanted to have prostate surgery; pt was on Xarelto and Plavix and needed to wait few days, of Xarelto and Plavix , for medication effect to wear off, before prostate surgery. On 03/27/2018 pt had prostate surgery and post-op had Holt placed while on CBI. Xarelto and Plavix was restarted per Dr. Laila Dial recommendations. Post op pt redeveloped CHF symptoms and pt was restarted on IV Lasix, then Metolazone was added for better diuresis. Hotl management was per Dr. Laila Dial. Pt was given TOV, twice , and developed recurrent post-op UR and Holt needed to be reinserted; this slowed down treating his CHF symptoms. Pt's renal function improved significantly and his weight decreased significantly, and diuretic was changed back to PO. Pt to be DC'ed home with close follow-up with all specialists and PCP (Dr. Kenzie Cardoso). Condition: Improved - Instructions Diet, Activity, Other Instructions: ADA, Low Salt, Low Cholesterol Fluid restriction: 1.5 L per 24 hours To follow-up with specialists and PCP Referrals: Gerhard Soriano MD [Staff Physician] - (within 1 week) Mamie Dial MD [Staff Physician] - (next aicha) Efrain Casey MD [Staff Physician] - (1-2 weeks) Judy Cardoso MD [Staff Physician] - (this week; please repeat CBC, CMP, magnesium) Disposition: HOME - Home Medications Comprehensive Discharge Medication List: Ambulatory Orders see discharge instructions
--- NOTE | 2018-04-15 14:19 | PN ---
Progress Note (short form) - Note Progress Note: UROLOGY NOTE 78 Y/O Male patient with history of BPH S/P TUVP 03/27. he is off curtis catheter yesterday, developed AUR c/o lower abd pain. PVR 750 ml. S.Creat 1.2 O/E palpable bladder and tender 20 F curtis catheter inserted and drain >300 ml urine Plan: patient can be discharged with curtis catheter. Cephalexin 500 mg TID RTC 10 days for UDS
[2018-04-15] MEDS ORDERED: POTASSIUM CHLORIDE ORAL LIQUID 20 MEQ/15 ML PO ONE (15:00)
--- NOTE | 2018-04-15 15:49 | PN ---
Progress Note (short form) - Note Progress Note: Renal follow up for PACO Pt seen and examined at the bedside no acute complaints sob is much improved has urinary retention and will require curtis no cp, fecer, chills, N/V/D Vital Signs Temperature 98.1 F 04/15/18 14:30 Pulse Rate 94 H 04/15/18 14:30 Respiratory Rate 16 04/15/18 14:30 Blood Pressure 85/62 L 04/15/18 14:30 O2 Sat by Pulse Oximetry (%) 94 L 04/15/18 08:59 Intake & Output 04/12/18 04/13/18 04/14/18 04/15/18 23:59 23:59 23:59 23:59 Intake Total 324 263 4504 Output Total 3100 3400 3330 1999 Balance -2900 -2440 -2330 -1999 Weight 79.038 kg 78.557 kg 77.621 kg 76.204 kg NAD RRR, No M/R Dec BS at lung bases CBC, BMP 04/15/18 09:03 04/15/18 09:03 Current Medications Acetaminophen (Tylenol -) 650 mg PO Q6H PRN PRN Reason: PAIN LEVEL 6-10 Last Admin: 04/11/18 21:17 Dose: 650 mg Allopurinol (Zyloprim -) 100 mg PO DAILY [facility] Last Admin: 04/15/18 10:07 Dose: 100 mg Allopurinol (Zyloprim -) 100 mg PO HS PRN PRN Reason: PAIN Last Admin: 04/14/18 21:36 Dose: 100 mg Cephalexin HCl (Keflex -) 500 mg PO TID [facility] Cholecalciferol (Vitamin D3 -) 2,000 unit PO DAILY [facility] Last Admin: 04/15/18 10:07 Dose: 2,000 unit Clopidogrel Bisulfate (Plavix -) 75 mg PO DAILY [facility] Last Admin: 04/15/18 10:08 Dose: 75 mg Docusate Sodium (Colace -) 100 mg PO Q12H PRN PRN Reason: CONSTIPATION Last Admin: 03/29/18 23:21 Dose: 100 mg Escitalopram Oxalate (Lexapro -) 10 mg PO DAILY [facility] Last Admin: 04/15/18 10:08 Dose: 10 mg Finasteride (Proscar -) 5 mg PO DAILY [facility] Last Admin: 04/15/18 10:08 Dose: 5 mg Glipizide (Glucotrol -) 2.5 mg PO DAILY@0700 [facility] Last Admin: 04/15/18 06:16 Dose: 2.5 mg Insulin Aspart (Novolog Vial Sliding Scale -) 1 vial SQ ACHS [facility]; Protocol Last Admin: 04/15/18 11:28 Dose: Not Given Metoprolol Succinate (Toprol Xl -) 25 mg PO DAILY [facility] Last Admin: 04/15/18 10:07 Dose: 25 mg Ondansetron HCl (Zofran Injection) 4 mg IVPUSH Q6H PRN PRN Reason: NAUSEA AND/OR VOMITING Potassium Chloride (Potassium Chloride Oral Liquid) 40 meq PO DAILY [facility] Last Admin: 04/15/18 10:08 Dose: 40 meq Rivaroxaban (Xarelto -) 15 mg PO DAILY@1800 [facility] Last Admin: 04/14/18 17:07 Dose: 15 mg Rosuvastatin Calcium (Crestor -) 10 mg PO HS [facility] Last Admin: 04/14/18 21:32 Dose: 10 mg Tamsulosin HCl (Flomax -) 0.4 mg PO BID@0830,2200 [facility] Last Admin: 04/15/18 10:07 Dose: 0.4 mg Torsemide (Demadex -) 100 mg PO BID@0600,1400 [facility] Last Admin: 04/15/18 15:00 Dose: 100 mg Zolpidem Tartrate (Ambien -) 5 mg PO HS PRN PRN Reason: INSOMNIA Last Admin: 04/14/18 21:36 Dose: 5 mg 78 year old gentleman with Hx of CHF, Hypertension, HLD, DM who presented with SOB and admitted for CHF exacerbation with PACO. #PACO on ? 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
[2018-04-15] MEDS: RIVAROXABAN 15 MG TABLET PO SCH (17:11)
[2018-04-15 18:39] VITALS: BP 102/71; PULSE 104; TEMP 97.7
[2018-04-15] MEDS ORDERED: CEPHALEXIN MONOHYDRATE 500 MG CAPSULE (UD) PO SCH (22:00)
== END 2018-04-15 19:11 | disposition home or self-care (01) | DRG 987 ==
LOC: JER 12:37 → JERBED 16:56 → JICU 21:36 → J2W 03-19 17:14 → J4S 03-28 17:00
PROVIDERS: ADMIT Specialist; ATTEND Specialist
PROC: 0T9B70Z Drainage of Bladder with Drainage Device, Via Natural or Artificial Opening (ICD-10-PCS; 2018-03-11)
PROC: 0V508ZZ Destruction of Prostate, Via Natural or Artificial Opening Endoscopic (ICD-10-PCS; principal; 2018-03-27 13:30)
DX: I13.0 Hypertensive heart and chronic kidney disease with heart failure and stage 1 through stage 4 chronic kidney disease, or unspecified chronic kidney disease (principal); I50.23 Acute on chronic systolic (congestive) heart failure; N17.9 Acute kidney failure, unspecified; I24.8 Other forms of acute ischemic heart disease; I47.2 Ventricular tachycardia; N13.9 Obstructive and reflux uropathy, unspecified; I95.9 Hypotension, unspecified; N28.1 Cyst of kidney, acquired; I48.0 Paroxysmal atrial fibrillation; N18.9 Chronic kidney disease, unspecified; E11.22 Type 2 diabetes mellitus with diabetic chronic kidney disease; N40.1 Benign prostatic hyperplasia with lower urinary tract symptoms; I25.10 Atherosclerotic heart disease of native coronary artery without angina pectoris; Z95.810 Presence of automatic (implantable) cardiac defibrillator; Z95.5 Presence of coronary angioplasty implant and graft; Z79.84 Long term (current) use of oral hypoglycemic drugs; E78.5 Hyperlipidemia, unspecified; Z87.891 Personal history of nicotine dependence; N40.0 Benign prostatic hyperplasia without lower urinary tract symptoms; M10.9 Gout, unspecified; R31.0 Gross hematuria; R33.8 Other retention of urine; E87.6 Hypokalemia
CPT/HCPCS: 36415; 71045-TC-FY; 71046-TC-FY; 76775-TC; 76856-TC; 80048; 80053; 82550; 82962; 83735; 83880; 84100; 84484; 85025; 85027; 93005; 93010; 94010; 94760; 97116-GP; 97161-GP; 99283-25; J0131; J7030